=== PATIENT | male | born 1950 ===

== ENCOUNTER 2018-09-24 05:45 | Inpatient (IN) | payer MEDICARE, OTHER ==
[2018-09-24 05:45] VITALS: BMI 33.6
[2018-09-24] MEDS ORDERED: Sodium Chloride 0.9% 1,000 ML IV STA (06:08)
--- NOTE | 2018-09-24 06:22 | ED PDOC ---
HPI:Nausea, Vomiting, Diarrhea Time Seen by Provider: 09/24/18 05:51 Chief Complaint (Nursing): GI Problem Chief Complaint (Provider): Vomiting History Per: Patient History/Exam Limitations: no limitations Onset/Duration Of Symptoms: Hrs (yesterday afternoon) Current Symptoms Are (Timing): Still Present Associated Symptoms: Nausea, Vomiting Additional Complaint(s): 68 year old male, with a past medical history of chronic liver disease secondary to alcohol abuse, s/p TIPS, liver cirrhosis, diabetes, high blood pressure, and high cholesterol, presents to the ED with for 3 episodes of vomiting since yesterday afternoon, nausea and weakness. Patient states he still feels he will vomit again. Denies any abdominal pain or abnormal stools. seems to think this is a reaction to his medication Nexavar which he started 2 weeks ago. Patient states he was supposed to have an appointment with his GI doctor, Dr. Mica Gentile. PMD: Pedro Chappell Jr. Past Medical History Reviewed: Historical Data, Nursing Documentation, Vital Signs Vital Signs: Last Vital Signs Temp 97.5 F L 09/24/18 05:50 Pulse 95 H 09/24/18 05:50 Resp 16 09/24/18 05:50 BP 163/74 H 09/24/18 05:50 Pulse Ox 98 09/24/18 05:50 - Medical History PMH: Diabetes, Gastritis, HTN, Hypercholesterolemia Denies: Chronic Kidney Disease Other PMH: Liver cirrhosis, chronic liver disease - Surgical History Surgical History: No Surg Hx - Family History Family History: States: Unknown Family Hx - Home Medications Home Medications: Ambulatory Orders Medication Instructions Recorded Carvedilol 6.25 mg PO BID 08/28/14 Cholecalciferol [Vitamin D 1000 IU] 50,000 iu PO QWK 08/28/14 Clotrimazole 1% Cream [Lotrimin 1% 1 applic TOP BID 08/28/14 CREAM] Insulin Aspart [Novolog Flexpen] 15 units SC TID 08/28/14 Insulin Detemir [Levemir Flexpen] 30 unit SC HS 08/28/14 Lactulose 10 gm PO TID 08/28/14 Lidocaine 2 patch TP DAILY PRN 08/28/14 Linaclotide [Linzess] 145 mcg PO DAILY 08/28/14 Liraglutide [Victoza] 1.8 mg SC DAILY 08/28/14 Omeprazole 40 mg PO DAILY 08/28/14 Propranolol HCl 10 mg PO TID 08/28/14 Ramipril 10 mg PO DAILY 08/28/14 Rifaximin [Xifaxan] 550 mg PO BID 08/28/14 Spironolactone 25 mg PO DAILY 08/28/14 Insulin Aspar/Insulin N 70/30 30 unit SC ACD #0 cartridge 09/01/14 [Novolog Mix 70/30-U/ml 3Ml] Insulin Aspar/Insulin N 70/30 40 unit SC ACB #0 cartridge 09/01/14 [Novolog Mix 70/30-U/ml 3Ml] Insulin Detemir [Levemir] 40 units SC HS #0 ml 09/01/14 Insulin Human Regular [Novolin R] 5 unit SC AC #0 ml 09/01/14 Lactulose [Enulose] 20 gm PO TID #0 udc 09/01/14 Lisinopril [Zestril] 10 mg PO DAILY #0 tab 09/01/14 Neomycin Sulfate [Neomycin Tab] 500 mg PO BIDMWF #0 tab 09/01/14 Pantoprazole [Protonix EC Tab] 40 mg PO DAILY #0 ect 09/01/14 Ondansetron HCl [Zofran] 4 mg PO Q8 PRN #10 tablet 03/12/18 - Allergies Allergies/Adverse Reactions: Allergies Allergy/AdvReac Type Severity Reaction Status Date / Time No Known Allergies Allergy Unverified 03/11/18 23:31 Review of Systems ROS Statement: Except As Marked, All Systems Reviewed And Found Negative Gastrointestinal: Positive for: Nausea, Vomiting. Negative for: Abdominal Pain, Other (abnormal stools) Physical Exam - Reviewed Nursing Documentation Reviewed: Yes Vital Signs Reviewed: Yes - Physical Exam Appears: Positive for: Non-toxic, No Acute Distress Head Exam: Positive for: ATRAUMATIC, NORMOCEPHALIC Skin: Positive for: Normal Color, Warm, Dry Eye Exam: Positive for: Scleral icterus Neck: Positive for: Normal, Painless ROM Cardiovascular/Chest: Positive for: Regular Rate, Rhythm Respiratory: Positive for: Normal Breath Sounds. Negative for: Wheezing, Respiratory Distress Gastrointestinal/Abdominal: Positive for: Normal Exam, Soft. Negative for: Tenderness, Asicites, Other (fluid wave) Extremity: Positive for: Normal ROM Neurologic/Psych: Positive for: Alert, Oriented. Negative for: Motor/Sensory Deficits - Laboratory Results Result Diagrams: 09/24/18 06:30 - ECG O2 Sat by Pulse Oximetry: 98 (RA) Pulse Ox Interpretation: Normal Medical Decision Making Medical Decision Making: A/P: 68 y/o male with extensive hepatic diseases presenting with nausea, vomiting, and weakness. Unclear at this time whether this is a medication side effect vs worsening hepatic disease vs biliary pathology. Initial Plan: --Type and screen stat --VBG --Ammonium stat --BMP --Lipase stat --Liver profile stat --CBC --PTT --Prothrombin time --Sodium chloride 1000mL IV --Zofran 4mg IV Will obtain labs and give Zofran and fluids. 07:[address] Sal. Scribe Attestation: Documented by Nakul Toney acting as a scribe for Kirby Sloan MD. Provider Scribe Attestation: All medical record entries made by the Scribe were at my direction and personally dictated by me. I have reviewed the chart and agree that the record accurately reflects my personal performance of the history, physical exam, medical decision making, and the department course for this patient. I have also personally directed, reviewed, and agree with the discharge instructions and disposition. Disposition - Clinical Impression Clinical Impression: Vomiting - Patient ED Disposition Is Patient to be Admitted: Transfer of Care - Disposition Disposition: Transfer of Care Disposition Time: 07:00 Condition: STABLE Forms: [facility] ([place]) Patient Signed Over To: Kee Sal Handoff Comments: pending workup and re-eval
[2018-09-24 06:36] LABS: VENOUS BLOOD GAS BASE EXCESS 2.2 mmol/L (0.0-2.0); VENOUS BLOOD GAS PCO2 43 mmHg (40-60); VENOUS BLOOD GAS PO2 38 mm/Hg (30-55); VENOUS BLOOD PH 7.41 (7.32-7.43)
[2018-09-24 06:39] LABS: BASO # 0.1 K/uL (0.0-0.2); BASO % 0.9 % (0.0-2.0); EOS # 0.1 K/uL (0.0-0.7); EOS % 1.4 % (0.0-4.0); HEMOGLOBIN 14.8 g/dL (12.0-18.0); LYMPH # 1.2 K/uL (1.0-4.3); MEAN CELL VOLUME 97.2 fl (80.0-94.0); MEAN CORPUSCULAR HEMOGLOBIN 34.3 pg (27.0-31.0); MEAN CORPUSCULAR HGB CONC 35.3 g/dL (33.0-37.0); MONO # 0.7 K/uL (0.0-0.8); MONO % 10.8 % (0.0-10.0); NEUT # 4.2 K/uL (1.8-7.0); NEUT % 67.9 % (50.0-75.0); RBC 4.3 Mil/uL (4.40-5.90); RED CELL DISTRIBUTION WIDTH 14.7 % (11.5-14.5); WHITE BLOOD COUNT 6.2 K/uL (4.8-10.8)
[2018-09-24 06:47] LABS: INR 1.3; PROTHROMBIN TIME 15.2 Seconds (9.8-13.1)
[2018-09-24 06:49] LABS: PARTIAL THROMBOPLASTIN TIME 32.5 Seconds (25.6-37.1)
[2018-09-24 06:51] LABS: ALB/GLOB RATIO 0.7 (1.0-2.1); ALBUMIN 3.5 g/dL (3.5-5.0); ALT/SGPT 71 U/L (21-72); AST/SGOT 106 U/L (17-59); BILIRUBIN,DIRECT 0.7 mg/ml (0.0-0.4); BLOOD UREA NITROGEN 23 mg/dl (9-20); CALCIUM 8.9 mg/dL (8.4-10.2); GFR NON-AFRICAN AMERICAN > 60; LIPASE 557 U/L (23-300)
--- NOTE | 2018-09-24 09:43 | US ---
Date of service: 09/24/2018 HISTORY: elevated lipase, vomiting COMPARISON: 08/27/2014. TECHNIQUE: Sonographic evaluation of the right upper quadrant of the abdomen. FINDINGS: LIVER: Measures 10.8 cm in length. Normal echogenicity of the liver parenchyma with coarse echotexture. No mass. No intrahepatic bile duct dilatation. A stent remains in place and is patent. GALLBLADDER: Not visualized. COMMON BILE DUCT: Not visualized. PANCREAS: Unremarkable as visualized. No mass. No ductal dilatation. RIGHT KIDNEY: Measures 10.3 cm in length. Normal echogenicity. No calculus, mass, or hydronephrosis. AORTA: No aneurysmal dilatation. IVC: Unremarkable. OTHER FINDINGS: None . IMPRESSION: Small liver. Patent TIPS stent. The gallbladder is not visualized which may be related to nonfasting status.
--- NOTE | 2018-09-24 12:15 | ED PDOC ---
- Laboratory Results Result Diagrams: 09/24/18 06:30 09/24/18 06:30 - ECG O2 Sat by Pulse Oximetry: 97 Disposition - Clinical Impression Clinical Impression: Vomiting, Hepatic encephalopathy - POA Present On Arrival: None - Disposition Disposition: Admitted as In-Patient Disposition Time: 12:14 Condition: FAIR Forms: [facility] (Greek)
[2018-09-24] MEDS ORDERED: Dextrose 5%/0.45% NS 1,000 ML IV SCH (18:15)
[2018-09-24] MEDS ORDERED: GABAPENTIN ENACARBIL 600 MG PO SCH (22:00)
[2018-09-24] MEDS: Insulin Regular 100 units/ml SC SCH (23:00)
[2018-09-25 06:24] LABS: HEMOGLOBIN 13.7 g/dL (12.0-18.0); MEAN CELL VOLUME 97.9 fl (80.0-94.0); MEAN CORPUSCULAR HEMOGLOBIN 34.1 pg (27.0-31.0); MEAN CORPUSCULAR HGB CONC 34.9 g/dL (33.0-37.0); RBC 4.01 Mil/uL (4.40-5.90); RED CELL DISTRIBUTION WIDTH 15.3 % (11.5-14.5)
[2018-09-25 06:31] LABS: BLOOD UREA NITROGEN 21 mg/dl (9-20); GFR NON-AFRICAN AMERICAN > 60
[2018-09-25] MEDS: Insulin Regular 100 units/ml SC SCH ×4 (08:51→22:00)
[2018-09-25] MEDS ORDERED: INSULIN DEGLUDEC 32 UNIT SC SCH (09:00)
--- NOTE | 2018-09-25 09:04 | CP.PCM.HP ---
History of Present Illness - History of Present Illness History of Present Illness: 68 YR OLD MALE ADMITTED WITH HEPATIC ENCEPHALOPATHY,NAUSEA AND VOMITING WITH TREMORS OF EXTREMITIES HX OF CIRRHOSIS OF THE LIVER DUE TO ETOH.NON-COMPLIANT TO RX FEELS BETTER TODAY FOLLOWING RE-INSTITUTION OF RX Present on Admission - Present on Admission Any Indicators Present on Admission: Yes Past Patient History - Infectious Disease Hx of Infectious Diseases: None - Past Medical History & Family History Past Medical History?: Yes - Past Social History Smoking Status: Never Smoked - CARDIAC Hx Cardiac Disorders: Yes Hx Hypercholesterolemia: Yes Hx Hypertension: Yes - PULMONARY Hx Respiratory Disorders: No - NEUROLOGICAL Hx Neurological Disorder: No - HEENT Hx HEENT Problems: No - RENAL Hx Chronic Kidney Disease: No - ENDOCRINE/METABOLIC Hx Endocrine Disorders: Yes Hx Diabetes Mellitus Type 2: Yes - HEMATOLOGICAL/ONCOLOGICAL Hx Blood Disorders: Yes Hx AIDS: No Hx Chemotherapy: Yes (on Nexavar PO) Hx Human Immunodeficiency Virus (HIV): No - INTEGUMENTARY Hx Dermatological Problems: No - MUSCULOSKELETAL/RHEUMATOLOGICAL Hx Musculoskeletal Disorders: No Hx Falls: No - GASTROINTESTINAL Hx Gastrointestinal Disorders: Yes Hx Gastritis: Yes Hx Vomiting: Yes Other/Comment: Chronic liver disease. Hepatic Encepalopathy - GENITOURINARY/GYNECOLOGICAL Hx Genitourinary Disorders: No - PSYCHIATRIC Hx Psychophysiologic Disorder: No Hx Depression: No Hx Substance Use: No - SURGICAL HISTORY Hx Surgeries: Yes Other/Comment: TIPS 10years ago - ANESTHESIA Hx Anesthesia: Yes Hx Anesthesia Reactions: No Meds Allergies/Adverse Reactions: Allergies Allergy/AdvReac Type Severity Reaction Status Date / Time No Known Allergies Allergy Unverified 03/11/18 23:31 Physical Exam - Constitutional Appears: Well, No Acute Distress - Head Exam Head Exam: ATRAUMATIC, NORMAL INSPECTION, NORMOCEPHALIC - Eye Exam Eye Exam: EOMI, Normal appearance, PERRL Pupil Exam: NORMAL ACCOMODATION, PERRL - ENT Exam ENT Exam: Mucous Membranes Moist, Normal Exam - Neck Exam Neck exam: Positive for: Normal Inspection - Respiratory Exam Respiratory Exam: Clear to Auscultation Bilateral, NORMAL BREATHING PATTERN - Cardiovascular Exam Cardiovascular Exam: REGULAR RHYTHM - GI/Abdominal Exam GI & Abdominal Exam: Normal Bowel Sounds, Soft. absent: Tenderness - Rectal Exam Rectal Exam: NORMAL INSPECTION - Extremities Exam Extremities exam: Positive for: normal inspection - Back Exam Back exam: NORMAL INSPECTION - Neurological Exam Neurological exam: Alert, CN II-XII Intact, Normal Gait, Oriented x3, Reflexes Normal - Psychiatric Exam Psychiatric exam: Normal Affect, Normal Mood - Skin Skin Exam: Dry, Intact, Normal Color, Warm Results - Vital Signs Recent Vital Signs: Last Vital Signs Temp 97.9 F 09/24/18 18:01 Pulse 75 09/25/18 08:47 Resp 18 09/24/18 18:09 BP 125/76 09/25/18 08:47 Pulse Ox 98 09/24/18 18:01 - Labs Result Diagrams: 09/25/18 06:05 09/25/18 06:05 Labs: Laboratory Results - last 24 hr 09/24/18 09/24/18 09/24/18 08:20 11:20 17:04 WBC RBC Hgb Hct MCV MCH MCHC RDW Plt Count Sodium Potassium Chloride Carbon Dioxide Anion Gap BUN Creatinine Est GFR ( Amer) Est GFR (Non-Af Amer) POC Glucose (mg/dL) 205 H Random Glucose Calcium Ammonia 158 H* D Blood Type Confirm O POSITIVE 09/24/18 09/24/18 09/25/18 17:50 21:21 05:50 WBC RBC Hgb Hct MCV MCH MCHC RDW Plt Count Sodium Potassium Chloride Carbon Dioxide Anion Gap BUN Creatinine Est GFR ( Amer) Est GFR (Non-Af Amer) POC Glucose (mg/dL) 186 H 136 H 252 H Random Glucose Calcium Ammonia Blood Type Confirm 09/25/18 09/25/18 09/25/18 06:05 06:05 06:05 WBC 6.0 RBC 4.01 L Hgb 13.7 Hct 39.3 MCV 97.9 H MCH 34.1 H MCHC 34.9 RDW 15.3 H Plt Count 75 L Sodium 140 Potassium 4.3 Chloride 110 H Carbon Dioxide 24 Anion Gap 10 BUN 21 H Creatinine 0.9 Est GFR ( Amer) > 60 Est GFR (Non-Af Amer) > 60 POC Glucose (mg/dL) Random Glucose 112 H Calcium 8.0 L Ammonia 147 H* Blood Type Confirm Assessment & Plan - Assessment and Plan (Free Text) Assessment: HEPATIC ENCEPHALOPATHY CIRRHOSIS OF THE LIVER HYPERAMMONEMIA DM HTN Plan: CONTINUE RX ORDERED - Date & Time Date: 09/25/18 Time: 09:06
[2018-09-26] MEDS: Insulin Regular 100 units/ml SC SCH ×4 (09:45→22:09)
--- NOTE | 2018-09-26 10:46 | CP.PCM.PN ---
Subjective - Date & Time of Evaluation Date of Evaluation: 09/26/18 Time of Evaluation: 10:46 - Subjective Subjective: STILL HAVING MILD TREMORS OF EXTREMITIES AND CLAIMS THAT HE IS SLIGHTLY DROWSY Objective - Vital Signs/Intake and Output Vital Signs (last 24 hours): Temp Pulse Resp BP Pulse Ox 97.6 F 81 20 146/72 99 09/26/18 08:48 09/26/18 09:44 09/26/18 08:48 09/26/18 09:44 09/26/18 08:48 - Medications Medications: Current Medications Carvedilol (Coreg) 6.25 mg PO Q12 [facility] Last Admin: 09/26/18 09:44 Dose: 6.25 mg Gabapentin (Neurontin) 600 mg PO [facility] Home Med (Insulin Degludec [Tresiba Flextouch U-200]) 32 unit SC DAILY [facility] Insulin Human Regular (Humulin R) 0 units SC ACCU-CHECK [facility]; Protocol Last Admin: 09/26/18 09:45 Dose: Not Given Lactulose (Enulose) 20 gm PO Q8 [facility] Pantoprazole Sodium (Protonix Inj) 40 mg IVP DAILY [facility] Last Admin: 09/26/18 09:45 Dose: 40 mg Ramipril (Altace) 10 mg PO DAILY [facility] Last Admin: 09/26/18 09:44 Dose: 10 mg Rifaximin (Xifaxan) 550 mg PO Q12 [facility]; Protocol Last Admin: 09/26/18 09:45 Dose: 550 mg Spironolactone (Aldactone) 25 mg PO BID [facility] Last Admin: 09/26/18 09:42 Dose: 25 mg - Labs Labs: 09/25/18 06:05 09/25/18 06:05 PT 15.2 Seconds (9.8-13.1) H 09/24/18 06:30 INR 1.3 09/24/18 06:30 APTT 32.5 Seconds (25.6-37.1) 09/24/18 06:30 - Constitutional Appears: Chronically Ill - Head Exam Head Exam: ATRAUMATIC, NORMAL INSPECTION, NORMOCEPHALIC - Eye Exam Eye Exam: EOMI, Normal appearance, PERRL Pupil Exam: NORMAL ACCOMODATION, PERRL - ENT Exam ENT Exam: Mucous Membranes Moist, Normal Exam - Neck Exam Neck Exam: Full ROM, Normal Inspection. absent: Lymphadenopathy - Respiratory Exam Respiratory Exam: Clear to Ausculation Bilateral, NORMAL BREATHING PATTERN - Cardiovascular Exam Cardiovascular Exam: REGULAR RHYTHM, +S1, +S2. absent: Murmur - GI/Abdominal Exam GI & Abdominal Exam: Soft, Normal Bowel Sounds. absent: Tenderness - Rectal Exam Rectal Exam: NORMAL INSPECTION - Extremities Exam Extremities Exam: Full ROM, Normal Capillary Refill, Normal Inspection. absent: Joint Swelling, Pedal Edema - Back Exam Back Exam: NORMAL INSPECTION - Neurological Exam Neurological Exam: Alert, Awake, CN II-XII Intact, Normal Gait, Oriented x3 Additional comments: SLIGHT TREMORS OF EXTREMITIES - Psychiatric Exam Psychiatric exam: Normal Affect, Normal Mood - Skin Skin Exam: Dry, Intact, Normal Color, Warm Assessment and Plan - Assessment and Plan (Free Text) Assessment: ALCOHOLIC LIVER DZ HEPATIC ENCEPHALOPATHY DM Plan: INCREASE DOSE OF LACTULOSE MONITOR LYTES AND AMMONIA LEVEL CASE DISCUSSED WITH AND PATIENT
[2018-09-27 06:19] LABS: BLOOD UREA NITROGEN 18 mg/dl (9-20); CALCIUM 7.8 mg/dL (8.4-10.2); GFR NON-AFRICAN AMERICAN > 60
[2018-09-27] MEDS: Insulin Regular 100 units/ml SC SCH ×4 (08:57→22:27)
--- NOTE | 2018-09-27 09:23 | CP.PCM.PN ---
Subjective - Date & Time of Evaluation Date of Evaluation: 09/27/18 Time of Evaluation: 09:22 - Subjective Subjective: FEELS MUCH BETTER APPETITE GREAT REQUESTS SWALLOWING EVAL Objective - Vital Signs/Intake and Output Vital Signs (last 24 hours): Temp Pulse Resp BP Pulse Ox 97.7 F 74 18 146/65 99 09/26/18 23:36 09/26/18 23:36 09/26/18 23:36 09/26/18 23:36 09/26/18 23:36 - Medications Medications: Current Medications Carvedilol (Coreg) 6.25 mg PO Q12 [facility] Last Admin: 09/26/18 22:02 Dose: 6.25 mg Gabapentin (Neurontin) 600 mg PO HS [facility] Last Admin: 09/26/18 22:08 Dose: 600 mg Home Med (Insulin Degludec [Tresiba Flextouch U-200]) 32 unit SC DAILY [facility] Insulin Human Regular (Humulin R) 0 units SC ACCU-CHECK [facility]; Protocol Last Admin: 09/27/18 08:57 Dose: Not Given Lactulose (Enulose) 20 gm PO Q8 [facility] Last Admin: 09/27/18 01:11 Dose: 20 gm Pantoprazole Sodium (Protonix Inj) 40 mg IVP DAILY [facility] Last Admin: 09/26/18 09:45 Dose: 40 mg Ramipril (Altace) 10 mg PO DAILY [facility] Last Admin: 09/26/18 09:44 Dose: 10 mg Rifaximin (Xifaxan) 550 mg PO Q12 [facility]; Protocol Last Admin: 09/26/18 22:05 Dose: 550 mg Spironolactone (Aldactone) 25 mg PO BID [facility] Last Admin: 09/26/18 16:58 Dose: 25 mg - Labs Labs: 09/25/18 06:05 09/27/18 05:40 PT 15.2 Seconds (9.8-13.1) H 09/24/18 06:30 INR 1.3 09/24/18 06:30 APTT 32.5 Seconds (25.6-37.1) 09/24/18 06:30 - Constitutional Appears: No Acute Distress - Head Exam Head Exam: ATRAUMATIC, NORMAL INSPECTION, NORMOCEPHALIC - Eye Exam Eye Exam: EOMI, Normal appearance, PERRL Pupil Exam: NORMAL ACCOMODATION, PERRL - ENT Exam ENT Exam: Mucous Membranes Moist, Normal Exam - Neck Exam Neck Exam: Full ROM, Normal Inspection. absent: Lymphadenopathy - Respiratory Exam Respiratory Exam: Clear to Ausculation Bilateral, NORMAL BREATHING PATTERN - Cardiovascular Exam Cardiovascular Exam: REGULAR RHYTHM, +S1, +S2. absent: Murmur - GI/Abdominal Exam GI & Abdominal Exam: Soft, Normal Bowel Sounds. absent: Tenderness - Rectal Exam Rectal Exam: NORMAL INSPECTION - Extremities Exam Extremities Exam: Full ROM, Normal Capillary Refill, Normal Inspection. absent: Joint Swelling, Pedal Edema - Back Exam Back Exam: NORMAL INSPECTION - Neurological Exam Neurological Exam: Alert, Awake, CN II-XII Intact, Normal Gait, Oriented x3 - Psychiatric Exam Psychiatric exam: Normal Affect, Normal Mood - Skin Skin Exam: Dry, Intact, Normal Color, Warm Assessment and Plan - Assessment and Plan (Free Text) Assessment: HEPATIC ENCEPHALOPATHY HYPERAMMONEMIA--IMPROVED Plan: CONTINUE CURRENT RX REPEAT AMMONIA LEVEL IN AM D/C HOME IN AM IF STABLE
[2018-09-27 16:35] VITALS: RESP 20
[2018-09-27 21:01] VITALS: PULSE 69
[2018-09-27 23:48] VITALS: O2SAT 99
[2018-09-28] MEDS: Insulin Regular 100 units/ml SC SCH ×2 (06:27→12:34)
[2018-09-28 08:41] VITALS: BP 118/67
[2018-09-28 08:49] VITALS: TEMP 97.8
--- NOTE | 2018-09-28 13:15 | CP.PCM.DIS ---
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 Priority: Medium (6) HTN (hypertension) Status: Chronic Priority: Medium Hospital Course - Lab Results Lab Results: Most Recent Lab Values WBC 6.0 K/uL (4.8-10.8) 09/25/18 06:05 RBC 4.01 Mil/uL (4.40-5.90) L 09/25/18 06:05 Hgb 13.7 g/dL (12.0-18.0) 09/25/18 06:05 Hct 39.3 % (35.0-51.0) 09/25/18 06:05 MCV 97.9 fl (80.0-94.0) H 09/25/18 06:05 MCH 34.1 pg (27.0-31.0) H 09/25/18 06:05 MCHC 34.9 g/dL (33.0-37.0) 09/25/18 06:05 RDW 15.3 % (11.5-14.5) H 09/25/18 06:05 Plt Count 75 K/uL (130-400) L 09/25/18 06:05 MPV 10.0 fl (7.2-11.7) 09/24/18 06:30 Neut % (Auto) 67.9 % (50.0-75.0) 09/24/18 06:30 Lymph % (Auto) 19.0 % (20.0-40.0) L 09/24/18 06:30 [place] % (Auto) 10.8 % (0.0-10.0) H 09/24/18 06:30 Eos % (Auto) 1.4 % (0.0-4.0) 09/24/18 06:30 Baso % (Auto) 0.9 % (0.0-2.0) 09/24/18 06:30 Neut # (Auto) 4.2 K/uL (1.8-7.0) 09/24/18 06:30 Lymph # (Auto) 1.2 K/uL (1.0-4.3) 09/24/18 06:30 [place] # (Auto) 0.7 K/uL (0.0-0.8) 09/24/18 06:30 Eos # (Auto) 0.1 K/uL (0.0-0.7) 09/24/18 06:30 Baso # (Auto) 0.1 K/uL (0.0-0.2) 09/24/18 06:30 PT 15.2 Seconds (9.8-13.1) H 09/24/18 06:30 INR 1.3 09/24/18 06:30 APTT 32.5 Seconds (25.6-37.1) 09/24/18 06:30 pO2 38 mm/Hg (30-55) 09/24/18 06:09 VBG pH 7.41 (7.32-7.43) 09/24/18 06:09 VBG pCO2 43 mmHg (40-60) 09/24/18 06:09 VBG HCO3 25.9 mmol/L 09/24/18 06:09 VBG Total CO2 28.6 mmol/L (22-28) H 09/24/18 06:09 VBG O2 Sat (Calc) 76.5 % (40-65) H 09/24/18 06:09 VBG Base Excess 2.2 mmol/L (0.0-2.0) H 09/24/18 06:09 VBG Potassium 4.3 mmol/L (3.6-5.2) 09/24/18 06:09 Sodium 138.0 mmol/L (132-148) 09/24/18 06:09 Chloride 106.0 mmol/L (98-107) 09/24/18 06:09 Glucose 141 mg/dL (75-110) H 09/24/18 06:09 Lactate 2.9 mmol/L (0.7-2.1) H 09/24/18 06:09 FiO2 21.0 % 09/24/18 06:09 Sodium 140 mmol/l (132-148) 09/27/18 05:40 Potassium 3.9 MMOL/L (3.6-5.0) 09/27/18 05:40 Chloride 116 mmol/L (98-107) H 09/27/18 05:40 Carbon Dioxide 22 mmol/L (22-30) 09/27/18 05:40 Anion Gap 6 (10-20) L 09/27/18 05:40 BUN 18 mg/dl (9-20) 09/27/18 05:40 Creatinine 0.8 mg/dl (0.8-1.5) 09/27/18 05:40 Est GFR ( Amer) > 60 09/27/18 05:40 Est GFR (Non-Af Amer) > 60 09/27/18 05:40 POC Glucose (mg/dL) 232 mg/dL (65-110) H 09/28/18 10:54 Random Glucose 101 mg/dL (75-110) 09/27/18 05:40 Calcium 7.8 mg/dL (8.4-10.2) L 09/27/18 05:40 Total Bilirubin 2.9 mg/dl (0.2-1.3) H 09/24/18 06:30 Direct Bilirubin 0.7 mg/ml (0.0-0.4) H 09/24/18 06:30 AST 106 U/L (17-59) H D 09/24/18 06:30 ALT 71 U/L (21-72) 09/24/18 06:30 Alkaline Phosphatase 197 U/L (38-126) H 09/24/18 06:30 Ammonia 95 umo/L (16-60) H* 09/28/18 05:30 Total Protein 8.5 G/DL (6.3-8.2) H 09/24/18 06:30 Albumin 3.5 g/dL (3.5-5.0) 09/24/18 06:30 Globulin 5.0 gm/dL (2.2-3.9) H 09/24/18 06:30 Albumin/Globulin Ratio 0.7 (1.0-2.1) L 09/24/18 06:30 Lipase 557 U/L (23-300) H 09/24/18 06:30 Venous Blood Potassium 4.3 mmol/L (3.6-5.2) 09/24/18 06:09 Blood Type O POSITIVE 09/24/18 06:30 Blood Type Confirm O POSITIVE 09/24/18 08:20 Antibody Screen Negative 09/24/18 06:30 BBK History Checked No verified bt 09/24/18 06:30 - Hospital Course Hospital Course: CLINICALLY IMPROVED AMMONIA LEVEL-95 Discharge Exam - Head Exam Head Exam: ATRAUMATIC, NORMAL INSPECTION, NORMOCEPHALIC - Eye Exam Eye Exam: EOMI, Normal appearance, PERRL Pupil Exam: NORMAL ACCOMODATION, PERRL - GI/Abdominal Exam GI & Abdominal Exam: Normal Bowel Sounds - Rectal Exam Rectal Exam: NORMAL INSPECTION - Neurological Exam Neurological exam: Alert, CN II-XII Intact, Normal Gait, Oriented x3, Reflexes Normal - Psychiatric Exam Psychiatric exam: Normal Affect, Normal Mood - Skin Skin Exam: Dry, Intact, Normal Color, Warm Discharge Plan - Follow Up Plan Condition: FAIR Disposition: HOME/ ROUTINE Patient education suggested?: Yes Instructions: Nausea and Vomiting, Adult (DC), Hepatic Encephalopathy (DC) Additional Instructions: hacer morena con hollins primario dentro 1 semana Referrals: Edwar Mancilla MD [Staff Provider] -
== END 2018-09-28 14:30 | disposition home or self-care (01) | DRG 442 ==
LOC: H.ER 05:45 → H.ERHOLD 12:12 → H.MEDSURG1 17:27
PROVIDERS: ADMIT Internal Medicine Pulmonary Disease; ATTEND Internal Medicine Pulmonary Disease
DX: K72.90 Hepatic failure, unspecified without coma (principal); I85.10 Secondary esophageal varices without bleeding; Z79.4 Long term (current) use of insulin; Z91.19 Patient's noncompliance with other medical treatment and regimen; F10.10 Alcohol abuse, uncomplicated; K29.70 Gastritis, unspecified, without bleeding; K76.9 Liver disease, unspecified; Z79.899 Other long term (current) drug therapy; E11.9 Type 2 diabetes mellitus without complications; E78.00 Pure hypercholesterolemia, unspecified; I10 Essential (primary) hypertension; K70.30 Alcoholic cirrhosis of liver without ascites

== ENCOUNTER 2018-12-03 15:16 | Inpatient (IN) | payer MEDICARE ==
[2018-12-03 15:16] VITALS: BMI 33.6
--- NOTE | 2018-12-03 16:05 | ED PDOC ---
HPI: Altered Mental Status Time Seen by Provider: 12/03/18 15:44 Chief Complaint (Nursing): Dizziness/Lightheaded Chief Complaint (Provider): Recurrence Hepatic Enceph History Per: Family History/Exam Limitations: None Onset/Duration Of Symptoms: Days (two to three days with it becoming worse this morning) Onset Of Symptoms: Other Current Symptoms Are (Timing): Still Present Description Of Symptoms: Confused Usual Baseline: Alert Oriented Exacerbating Factor(s): Diabetic, Alcohol Use (pt no longer uses alcohol), Liver Disease Decreased Ability To: Walk, Sit Severity: Moderate Associated Symptoms: Disoriented, Confused, Trouble Concentrating, Trouble Thinking, Weakness Additional Complaint(s): Pt with a history of cirrhosis and recurrent hepatic encep presents confused and unable to determine the day or the month and uncertain of his wearabouts with symptoms that his indicates have worsened over the last few days. denies that the patient has suffered from constipation and has had a bowel movement as recently as this morning and takes his medication daily, which includes lactolose. Past Medical History Reviewed: Historical Data, Nursing Documentation, Vital Signs Vital Signs: Last Vital Signs Temp 97.6 F 12/03/18 15:21 Pulse 87 12/03/18 15:21 Resp 16 12/03/18 15:21 BP 128/77 12/03/18 15:21 Pulse Ox 99 12/03/18 15:21 - Medical History PMH: Diabetes, Gastritis, HTN, Hypercholesterolemia Denies: Depression, HIV, Chronic Kidney Disease - Family History Family History: States: Unknown Family Hx - Home Medications Home Medications: Ambulatory Orders Medication Instructions Recorded Carvedilol [Coreg] 6.25 mg PO Q12 09/24/18 Cilostazol [Pletal] 50 mg PO Q12 09/24/18 Dulaglutide [Trulicity] 1.5 mg SC WE 09/24/18 Empagliflozin [Jardiance] 25 mg PO DAILY 09/24/18 Furosemide [Lasix] 20 mg PO BID 09/24/18 Gabapentin Enacarbil [Horizant] 600 mg PO HS 09/24/18 Insulin Degludec [Tresiba 33 unit SC DAILY 09/24/18 Flextouch U-200] Omeprazole 40 mg PO DAILY 09/24/18 Spironolactone [Aldactone] 25 mg PO BID 09/24/18 rifAXIMin [Xifaxan] 550 mg PO Q12 09/24/18 Lactulose [Generlac] 30 ml PO BID 12/03/18 traMADol [Ultram] 50 mg PO Q12 PRN 12/03/18 - Allergies Allergies/Adverse Reactions: Allergies Allergy/AdvReac Type Severity Reaction Status Date / Time No Known Allergies Allergy Unverified 03/11/18 23:31 Review of Systems Review Of Systems: ROS cannot be obtained secondary to pt's inabilty to answer questions. Neurological: Positive for: Altered Mental Status Physical Exam - Reviewed Nursing Documentation Reviewed: Yes Vital Signs Reviewed: Yes - Physical Exam Appears: Positive for: Uncomfortable Head Exam: Positive for: ATRAUMATIC, NORMAL INSPECTION Skin: Positive for: Warm, Dry. Negative for: Diaphoresis, Pallor, Rash Eye Exam: Positive for: PERRL. Negative for: Nystagmus, Periorbital swelling, Periorbital tenderness Cardiovascular/Chest: Positive for: Regular Rate, Rhythm, Chest Non Tender. Negative for: Bradycardia, Tachycardia Respiratory: Positive for: Normal Breath Sounds. Negative for: Decreased Breath Sounds, Accessory Muscle Use, Crackles, Rales, Rhonchi Pulses-Carotid (L): 2+ Pulses-Carotid (R): 2+ Pulses-Radial (L): 2+ Pulses-Radial (R): 2+ Gastrointestinal/Abdominal: Positive for: Bowel Sounds (active in all four quadrants), Soft, Asicites. Negative for: Tenderness Back: Positive for: Normal Inspection. Negative for: L CVA Tenderness, R CVA Tenderness, Vertebral Tenderness Rectal: Positive for: Normal Exam, Rectal Tone Is: (positive), Stool Is Heme: (negative). Negative for: Blood Streaked Stool, Hemorrhoids, Tenderness - Laboratory Results Result Diagrams: 12/03/18 16:22 12/03/18 16:22 - ECG O2 Sat by Pulse Oximetry: 99 Medical Decision Making Medical Decision Making: I: hepatic enceph P: CBC CMP Ammonia tx with lactolose and monitor Pt ammonia at 269, critically high 1650- called Dr Carey and [facility] service Disposition - Clinical Impression Clinical Impression: Hepatic encephalopathy - Patient ED Disposition Is Patient to be Admitted: Yes Discussed With : Ck Quintanilla Doctor Will See Patient In The: Hospital Counseled Patient/Family Regarding: Diagnosis, Need For Followup - Disposition Disposition Time: 17:07 Condition: FAIR - Pt Status Changed To: Hospital Disposition Of: Inpatient - Admit Certification Admit to Inpatient:: After my assessment, the patient will require hospitalization for at least two midnights. This is because of the severity of symptoms shown, intensity of services needed, and/or the medical risk in this patient being treated as an outpatient.
[2018-12-03 16:38] LABS: BASO % 0.5 % (0.0-2.0); EOS # 0.2 K/uL (0.0-0.7); EOS % 2.4 % (0.0-4.0); HEMOGLOBIN 13.7 g/dL (12.0-18.0); LYMPH # 1.3 K/uL (1.0-4.3); LYMPH % 19.3 % (20.0-40.0); MEAN CELL VOLUME 102.3 fl (80.0-94.0); MEAN CORPUSCULAR HEMOGLOBIN 35.5 pg (27.0-31.0); MEAN CORPUSCULAR HGB CONC 34.8 g/dL (33.0-37.0); MEAN PLATELET VOLUME 9.9 fl (7.2-11.7); MONO # 0.8 K/uL (0.0-0.8); MONO % 11.3 % (0.0-10.0); NEUT # 4.4 K/uL (1.8-7.0); NEUT % 66.5 % (50.0-75.0); NRBC % 0.1 % (0.0-0.0); RBC 3.84 Mil/uL (4.40-5.90); RED CELL DISTRIBUTION WIDTH 15.8 % (11.5-14.5); WHITE BLOOD COUNT 6.6 K/uL (4.8-10.8)
[2018-12-03 16:41] LABS: INR 1.4; PROTHROMBIN TIME 15.4 Seconds (9.8-13.1)
[2018-12-03 16:43] LABS: ALB/GLOB RATIO 0.7 (1.0-2.1); ALBUMIN 3.1 g/dL (3.5-5.0); ALT/SGPT 67 U/L (21-72); AST/SGOT 107 U/L (17-59); BLOOD UREA NITROGEN 22 mg/dl (9-20); CALCIUM 8.7 mg/dL (8.4-10.2); GFR NON-AFRICAN AMERICAN > 60; LIPASE 305 U/L (23-300)
[2018-12-03 16:44] LABS: PARTIAL THROMBOPLASTIN TIME 31.4 Seconds (25.6-37.1)
[2018-12-03] MEDS ORDERED: Sodium Chloride 0.9% 1,000 ML IV ONE (17:35)
[2018-12-03 19:26] LABS: SQUAMOUS EPITHIAL 2 /hpf (0-5); URINE BACTERIA RARE (<OCC); URINE BILIRUBIN NEGATIVE (NEGATIVE); URINE BLOOD NEGATIVE (NEGATIVE); URINE CLARITY SLIGHTY-CLOUDY (Clear); URINE COLOR YELLOW (YELLOW); URINE GLUCOSE (UA) >=500 mg/dL (NEGATIVE); URINE LEUKOCYTE ESTERASE TRACE Leu/uL (Negative); URINE PROTEIN 100 mg/dL (NEGATIVE)
[2018-12-03] MEDS: Sodium Chloride 0.9% 1,000 ML IV SCH (21:54)
[2018-12-03] MEDS: Insulin Lispro (humaLOG) 100 Units/ml Inj SC SCH (23:19)
[2018-12-04 05:54] LABS: MEAN CELL VOLUME 101.9 fl (80.0-94.0); MEAN CORPUSCULAR HEMOGLOBIN 36.1 pg (27.0-31.0); MEAN CORPUSCULAR HGB CONC 35.5 g/dL (33.0-37.0); RBC 3.6 Mil/uL (4.40-5.90); RED CELL DISTRIBUTION WIDTH 15.8 % (11.5-14.5); WHITE BLOOD COUNT 6.4 K/uL (4.8-10.8)
[2018-12-04] MEDS: Sodium Chloride 0.9% 1,000 ML IV SCH ×3 (06:06→16:46)
[2018-12-04 06:10] LABS: ALB/GLOB RATIO 0.7 (1.0-2.1); ALBUMIN 2.8 g/dL (3.5-5.0); ALT/SGPT 71 U/L (21-72); AST/SGOT 94 U/L (17-59); BLOOD UREA NITROGEN 22 mg/dl (9-20); GFR NON-AFRICAN AMERICAN > 60
[2018-12-04] MEDS: Insulin Lispro (humaLOG) 100 Units/ml Inj SC SCH ×4 (08:08→22:26)
[2018-12-04] MEDS: Cilostazol 50 mg Tab UD PO SCH ×2 (08:09→21:22)
--- NOTE | 2018-12-04 09:04 | CARD ---
APPROVED REPORT Date of service: 12/03/2018 EKG Measurement Heart [id number] <Conclusion> Normal sinus rhythm Minimal voltage criteria for LVH, may be normal variant Poor R wave progression in Precordial leads Abnormal ECG
[2018-12-04 10:31] LABS: SQUAMOUS EPITHIAL 1 /hpf (0-5); URINE BILIRUBIN NEGATIVE (NEGATIVE); URINE BLOOD NEGATIVE (NEGATIVE); URINE CLARITY SLIGHTY-CLOUDY (Clear); URINE COLOR AMBER (YELLOW); URINE GLUCOSE (UA) >=500 mg/dL (NEGATIVE); URINE LEUKOCYTE ESTERASE NEG Leu/uL (Negative); URINE PROTEIN 100 mg/dL (NEGATIVE)
[2018-12-04 16:52] LABS: HEPATITIS B SURFACE AG Negative (NEGATIVE)
[2018-12-04 16:59] LABS: HEPATITIS A IGM NEGATIVE (NEGATIVE); HEPATITIS B CORE AB NEGATIVE (NEGATIVE)
[2018-12-04 17:10] LABS: HEPATITIS C ANTIBODY NEGATIVE (NEGATIVE)
--- NOTE | 2018-12-04 20:57 | CP.PCM.CON ---
History of Present Illness - History of Present Illness History of Present Illness: 68 yo male with h/o Etoh Cirrhosis admitted with increasing confusion. Patient has had TIPS in the past. Recently noted to have rising AFP and in October Had liver CT showing stable liver masses. Has seen Dr. Wade as his liver special ist. Review of Systems - Constitutional Constitutional: absent: Chills - EENT Eyes: absent: Blurred Vision Ears: absent: Ear Pain Nose/Mouth/Throat: absent: Epistaxis - Cardiovascular Cardiovascular: absent: Chest Pain - Respiratory Respiratory: absent: Dyspnea - Gastrointestinal Gastrointestinal: absent: Abdominal Pain - Genitourinary Genitourinary: Change in Urinary Stream Past Patient History - Infectious Disease Hx of Infectious Diseases: None - Past Medical History & Family History Past Medical History?: Yes - Past Social History Smoking Status: Never Smoked - CARDIAC Hx Cardiac Disorders: Yes Hx Hypercholesterolemia: Yes Hx Hypertension: Yes - PULMONARY Hx Respiratory Disorders: No - NEUROLOGICAL Hx Neurological Disorder: No - HEENT Hx HEENT Problems: No - RENAL Hx Chronic Kidney Disease: Yes - ENDOCRINE/METABOLIC Hx Endocrine Disorders: Yes Hx Diabetes Mellitus Type 2: Yes - HEMATOLOGICAL/ONCOLOGICAL Hx Blood Disorders: No Hx Human Immunodeficiency Virus (HIV): No - INTEGUMENTARY Hx Dermatological Problems: No - MUSCULOSKELETAL/RHEUMATOLOGICAL Hx Musculoskeletal Disorders: No Hx Falls: No - GASTROINTESTINAL Hx Gastrointestinal Disorders: Yes Hx Gastritis: Yes - GENITOURINARY/GYNECOLOGICAL Hx Genitourinary Disorders: No - PSYCHIATRIC Hx Psychophysiologic Disorder: No Hx Substance Use: No - SURGICAL HISTORY Hx Surgeries: Yes Other/Comment: TIPS 10years ago - ANESTHESIA Hx Anesthesia: Yes Hx Anesthesia Reactions: No Meds Allergies/Adverse Reactions: Allergies Allergy/AdvReac Type Severity Reaction Status Date / Time No Known Allergies Allergy Unverified 03/11/18 23:31 - Medications Medications: Current Medications Carvedilol (Coreg) 6.25 mg PO Q12 [facility] Last Admin: 12/04/18 08:09 Dose: 6.25 mg Cilostazol (Pletal) 50 mg PO Q12 [facility] Last Admin: 12/04/18 08:09 Dose: 50 mg Furosemide (Lasix) 20 mg PO BID [facility] Last Admin: 12/04/18 16:47 Dose: 20 mg Gabapentin (Neurontin) 600 mg PO HS [facility] Last Admin: 12/03/18 22:00 Dose: 600 mg Sodium Chloride (Sodium Chloride 0.9%) 1,000 mls @ 100 mls/hr IV .Q10H [facility] Stop: 12/04/18 21:04 Last Admin: 12/04/18 16:46 Dose: 100 mls/hr Insulin Human Lispro (Humalog) 0 units SC ACCU-CHECK [facility]; Protocol Last Admin: 12/04/18 16:47 Dose: 2 units Lactulose (Enulose) 20 gm PO TID [facility] Last Admin: 12/04/18 16:46 Dose: 20 gm Rifaximin (Xifaxan) 550 mg PO Q12 [facility]; Protocol Last Admin: 12/04/18 08:10 Dose: 550 mg Spironolactone (Aldactone) 25 mg PO BID [facility] Last Admin: 12/04/18 16:46 Dose: 25 mg Physical Exam - Constitutional Appears: No Acute Distress - Eye Exam Eye Exam: Scleral icterus Pupil Exam: PERRL - ENT Exam ENT Exam: Mucous Membranes Moist - Neck Exam Neck exam: Positive for: Normal Inspection - Respiratory Exam Respiratory Exam: Clear to Auscultation Bilateral - Cardiovascular Exam Cardiovascular Exam: REGULAR RHYTHM, +S1, +S2 - GI/Abdominal Exam GI & Abdominal Exam: Distended, Normal Bowel Sounds - Rectal Exam Rectal Exam: Deferred Results - Vital Signs Recent Vital Signs: Last Vital Signs Temp 97.7 F 12/04/18 16:10 Pulse 78 12/04/18 16:10 Resp 20 12/04/18 16:10 BP 142/75 12/04/18 16:47 Pulse Ox 98 12/04/18 16:10 - Labs Result Diagrams: 12/04/18 04:31 12/04/18 04:31 Labs: Laboratory Results - last 24 hr 12/03/18 12/04/18 12/04/18 22:00 04:31 04:31 WBC 6.4 RBC 3.60 L Hgb 13.0 Hct 36.7 MCV 101.9 H MCH 36.1 H MCHC 35.5 RDW 15.8 H Plt Count 82 L Sodium Potassium Chloride Carbon Dioxide Anion Gap BUN Creatinine Est GFR ( Amer) Est GFR (Non-Af Amer) POC Glucose (mg/dL) 94 Random Glucose Calcium Total Bilirubin AST ALT Alkaline Phosphatase Ammonia 123 H* D Total Protein Albumin Globulin Albumin/Globulin Ratio Alpha Fetoprotein Carcinoembryonic Ag Prostate Specific Ag Urine Color Urine Clarity Urine pH Ur Specific [place] Urine Protein Urine Glucose (UA) Urine Ketones Urine Blood Urine Nitrate Urine Bilirubin Urine Urobilinogen Ur Leukocyte Esterase Urine RBC (Auto) Urine Microscopic WBC Ur Squamous Epith Cells Hepatitis A IgM Ab Hep Bs Antigen Hep B Core IgM Ab Hepatitis C Antibody 12/04/18 12/04/18 12/04/18 04:31 06:01 06:40 WBC RBC Hgb Hct MCV MCH MCHC RDW Plt Count Sodium 143 Potassium 3.8 Chloride 110 H Carbon Dioxide 24 Anion Gap 13 BUN 22 H Creatinine 0.8 Est GFR ( Amer) > 60 Est GFR (Non-Af Amer) > 60 POC Glucose (mg/dL) 71 91 Random Glucose 74 L Calcium 8.0 L Total Bilirubin 3.8 H AST 94 H ALT 71 Alkaline Phosphatase 152 H D Ammonia Total Protein 6.9 Albumin 2.8 L Globulin 4.2 H Albumin/Globulin Ratio 0.7 L Alpha Fetoprotein Carcinoembryonic Ag Prostate Specific Ag 0.117 Urine Color Urine Clarity Urine pH Ur Specific [place] Urine Protein Urine Glucose (UA) Urine Ketones Urine Blood Urine Nitrate Urine Bilirubin Urine Urobilinogen Ur Leukocyte Esterase Urine RBC (Auto) Urine Microscopic WBC Ur Squamous Epith Cells Hepatitis A IgM Ab Hep Bs Antigen Hep B Core IgM Ab Hepatitis C Antibody 12/04/18 12/04/18 12/04/18 09:58 10:52 10:52 WBC RBC Hgb Hct MCV MCH MCHC RDW Plt Count Sodium Potassium Chloride Carbon Dioxide Anion Gap BUN Creatinine Est GFR ( Amer) Est GFR (Non-Af Amer) POC Glucose (mg/dL) Random Glucose Calcium Total Bilirubin AST ALT Alkaline Phosphatase Ammonia Total Protein Albumin Globulin Albumin/Globulin Ratio Alpha Fetoprotein 135.0 H Carcinoembryonic Ag 4.0 H Prostate Specific Ag Urine Color [place] Urine Clarity Slighty-cloudy Urine pH 6.0 Ur Specific [place] 1.030 Urine Protein 100 Urine Glucose (UA) >=500 Urine Ketones Trace Urine Blood Negative Urine Nitrate Negative Urine Bilirubin Negative Urine Urobilinogen 4.0 Ur Leukocyte Esterase Neg Urine RBC (Auto) 12 H Urine Microscopic WBC 4 Ur Squamous Epith Cells 1 Hepatitis A IgM Ab Hep Bs Antigen Hep B Core IgM Ab Hepatitis C Antibody 12/04/18 12/04/18 12/04/18 10:52 11:19 16:19 WBC RBC Hgb Hct MCV MCH MCHC RDW Plt Count Sodium Potassium Chloride Carbon Dioxide Anion Gap BUN Creatinine Est GFR ( Amer) Est GFR (Non-Af Amer) POC Glucose (mg/dL) 179 H 216 H Random Glucose Calcium Total Bilirubin AST ALT Alkaline Phosphatase Ammonia Total Protein Albumin Globulin Albumin/Globulin Ratio Alpha Fetoprotein Carcinoembryonic Ag Prostate Specific Ag Urine Color Urine Clarity Urine pH Ur Specific [place] Urine Protein Urine Glucose (UA) Urine Ketones Urine Blood Urine Nitrate Urine Bilirubin Urine Urobilinogen Ur Leukocyte Esterase Urine RBC (Auto) Urine Microscopic WBC Ur Squamous Epith Cells Hepatitis A IgM Ab Negative Hep Bs Antigen Negative Hep B Core IgM Ab Negative Hepatitis C Antibody Negative Assessment & Plan (1) Hepatic encephalopathy Assessment and Plan: Patient more alert and ammonia level improving with lactulose and rifaximin. AFP stable though elevated over past few months. 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 Status: Acute
[2018-12-05 06:48] LABS: HEMOGLOBIN 11.9 g/dL (12.0-18.0); MEAN CELL VOLUME 104.3 fl (80.0-94.0); MEAN CORPUSCULAR HEMOGLOBIN 36.4 pg (27.0-31.0); MEAN CORPUSCULAR HGB CONC 34.9 g/dL (33.0-37.0); RBC 3.26 Mil/uL (4.40-5.90); RED CELL DISTRIBUTION WIDTH 15.8 % (11.5-14.5); WHITE BLOOD COUNT 5.9 K/uL (4.8-10.8)
[2018-12-05 07:11] LABS: BLOOD UREA NITROGEN 21 mg/dl (9-20); CALCIUM 7.5 mg/dL (8.4-10.2); GFR NON-AFRICAN AMERICAN > 60
[2018-12-05] MEDS: Cilostazol 50 mg Tab UD PO SCH ×2 (08:02→21:03)
[2018-12-05] MEDS: Insulin Lispro (humaLOG) 100 Units/ml Inj SC SCH ×3 (08:04→16:33)
--- NOTE | 2018-12-05 08:37 | CP.PCM.HP ---
History of Present Illness - History of Present Illness History of Present Illness: This is a 68 y/o male with hx of alcoholic liver disease was admitted from last night after he was noted by his to have increasing disorientation and confusion. He was admitted previously for hepatic encephalopathy and has been on lactulose and Xifaxan. At the Er he was noted to have elevated NH3 levels at 269 Medical Hx alcoholic liver cirrhosis HTN DM 2 Obesity Current medications trulicity jardiance Xifaxan lactulose carvedilol furosemide aldactone Present on Admission - Present on Admission Any Indicators Present on Admission: No History of DVT/PE: No History of Uncontrolled Diabetes: Yes Urinary Catheter: No Decubitus Ulcer Present: No Past Patient History - Infectious Disease Hx of Infectious Diseases: None - Past Medical History & Family History Past Medical History?: Yes - Past Social History Smoking Status: Never Smoked - CARDIAC Hx Cardiac Disorders: Yes Hx Hypercholesterolemia: Yes Hx Hypertension: Yes - PULMONARY Hx Respiratory Disorders: No - NEUROLOGICAL Hx Neurological Disorder: No - HEENT Hx HEENT Problems: No - RENAL Hx Chronic Kidney Disease: Yes - ENDOCRINE/METABOLIC Hx Endocrine Disorders: Yes Hx Diabetes Mellitus Type 2: Yes - HEMATOLOGICAL/ONCOLOGICAL Hx Blood Disorders: No Hx Human Immunodeficiency Virus (HIV): No - INTEGUMENTARY Hx Dermatological Problems: No - MUSCULOSKELETAL/RHEUMATOLOGICAL Hx Musculoskeletal Disorders: No Hx Falls: No - GASTROINTESTINAL Hx Gastrointestinal Disorders: Yes Hx Gastritis: Yes - GENITOURINARY/GYNECOLOGICAL Hx Genitourinary Disorders: No - PSYCHIATRIC Hx Psychophysiologic Disorder: No Hx Substance Use: No - SURGICAL HISTORY Hx Surgeries: Yes Other/Comment: TIPS 10years ago - ANESTHESIA Hx Anesthesia: Yes Hx Anesthesia Reactions: No Meds Allergies/Adverse Reactions: Allergies Allergy/AdvReac Type Severity Reaction Status Date / Time No Known Allergies Allergy Unverified 03/11/18 23:31 Physical Exam - Head Exam Head Exam: NORMAL INSPECTION - Eye Exam Eye Exam: Normal appearance - Respiratory Exam Respiratory Exam: Clear to Auscultation Bilateral - Cardiovascular Exam Cardiovascular Exam: REGULAR RHYTHM - Neurological Exam Neurological exam: Alert, Oriented x3 - Psychiatric Exam Psychiatric exam: Normal Mood Results - Vital Signs Recent Vital Signs: Last Vital Signs Temp 97.4 F L 12/05/18 08:25 Pulse 75 12/05/18 08:25 Resp 20 12/05/18 08:25 BP 131/74 02/20/19 08:25 Pulse Ox 97 12/05/18 08:25 - Labs Result Diagrams: 12/05/18 06:25 12/05/18 06:25 Labs: Laboratory Results - last 24 hr 12/04/18 12/04/18 12/04/18 09:58 10:52 10:52 WBC RBC Hgb Hct MCV MCH MCHC RDW Plt Count Sodium Potassium Chloride Carbon Dioxide Anion Gap BUN Creatinine Est GFR ( Amer) Est GFR (Non-Af Amer) POC Glucose (mg/dL) Random Glucose Calcium Ammonia Alpha Fetoprotein 135.0 H Carcinoembryonic Ag 4.0 H Urine Color [place] Urine Clarity Slighty-cloudy Urine pH 6.0 Ur Specific [place] 1.030 Urine Protein 100 Urine Glucose (UA) >=500 Urine Ketones Trace Urine Blood Negative Urine Nitrate Negative Urine Bilirubin Negative Urine Urobilinogen 4.0 Ur Leukocyte Esterase Neg Urine RBC (Auto) 12 H Urine Microscopic WBC 4 Ur Squamous Epith Cells 1 Hepatitis A IgM Ab Hep Bs Antigen Hep B Core IgM Ab Hepatitis C Antibody 12/04/18 12/04/18 12/04/18 10:52 11:19 16:19 WBC RBC Hgb Hct MCV MCH MCHC RDW Plt Count Sodium Potassium Chloride Carbon Dioxide Anion Gap BUN Creatinine Est GFR ( Amer) Est GFR (Non-Af Amer) POC Glucose (mg/dL) 179 H 216 H Random Glucose Calcium Ammonia Alpha Fetoprotein Carcinoembryonic Ag Urine Color Urine Clarity Urine pH Ur Specific [place] Urine Protein Urine Glucose (UA) Urine Ketones Urine Blood Urine Nitrate Urine Bilirubin Urine Urobilinogen Ur Leukocyte Esterase Urine RBC (Auto) Urine Microscopic WBC Ur Squamous Epith Cells Hepatitis A IgM Ab Negative Hep Bs Antigen Negative Hep B Core IgM Ab Negative Hepatitis C Antibody Negative 12/04/18 12/05/18 12/05/18 22:13 05:32 06:25 WBC 5.9 RBC 3.26 L Hgb 11.9 L Hct 34.0 L MCV 104.3 H D MCH 36.4 H MCHC 34.9 RDW 15.8 H Plt Count 62 L D Sodium Potassium Chloride Carbon Dioxide Anion Gap BUN Creatinine Est GFR ( Amer) Est GFR (Non-Af Amer) POC Glucose (mg/dL) 135 H 74 Random Glucose Calcium Ammonia Alpha Fetoprotein Carcinoembryonic Ag Urine Color Urine Clarity Urine pH Ur Specific [place] Urine Protein Urine Glucose (UA) Urine Ketones Urine Blood Urine Nitrate Urine Bilirubin Urine Urobilinogen Ur Leukocyte Esterase Urine RBC (Auto) Urine Microscopic WBC Ur Squamous Epith Cells Hepatitis A IgM Ab Hep Bs Antigen Hep B Core IgM Ab Hepatitis C Antibody 12/05/18 12/05/18 06:25 06:25 WBC RBC Hgb Hct MCV MCH MCHC RDW Plt Count Sodium 137 Potassium 3.8 Chloride 106 Carbon Dioxide 24 Anion Gap 11 BUN 21 H Creatinine 1.0 Est GFR ( Amer) > 60 Est GFR (Non-Af Amer) > 60 POC Glucose (mg/dL) Random Glucose 118 H Calcium 7.5 L Ammonia 119 H* Alpha Fetoprotein Carcinoembryonic Ag Urine Color Urine Clarity Urine pH Ur Specific [place] Urine Protein Urine Glucose (UA) Urine Ketones Urine Blood Urine Nitrate Urine Bilirubin Urine Urobilinogen Ur Leukocyte Esterase Urine RBC (Auto) Urine Microscopic WBC Ur Squamous Epith Cells Hepatitis A IgM Ab Hep Bs Antigen Hep B Core IgM Ab Hepatitis C Antibody Assessment & Plan (1) Hepatic encephalopathy Status: Acute (2) DM type 2 (diabetes mellitus, type 2) Status: Acute (3) Cirrhosis of liver Status: Acute - Assessment and Plan (Free Text) Plan: Cont lactilose cont all po meds recheck NH3 levels advised to have lactulose qid at home' DC plans in am
[2018-12-05] MEDS: Sodium Chloride 0.9% 1,000 ML IV SCH (12:01)
--- NOTE | 2018-12-05 15:54 | CP.PCM.PN ---
Subjective - Date & Time of Evaluation Date of Evaluation: 12/05/18 Time of Evaluation: 15:51 - Subjective Subjective: Patient feeling stronger. Feels less shaky Objective - Vital Signs/Intake and Output Vital Signs (last 24 hours): Temp Pulse Resp BP Pulse Ox 97.4 F L 75 20 131/74 97 12/05/18 08:25 12/05/18 08:25 12/05/18 08:25 12/05/18 08:25 12/05/18 08:25 - Medications Medications: Current Medications Carvedilol (Coreg) 6.25 mg PO Q12 [facility] Last Admin: 12/05/18 08:03 Dose: 6.25 mg Cilostazol (Pletal) 50 mg PO Q12 [facility] Last Admin: 12/05/18 08:02 Dose: 50 mg Furosemide (Lasix) 20 mg PO BID [facility] Last Admin: 12/05/18 08:03 Dose: 20 mg Gabapentin (Neurontin) 600 mg PO HS [facility] Last Admin: 12/04/18 21:22 Dose: 600 mg Sodium Chloride (Sodium Chloride 0.9%) 1,000 mls @ 80 mls/hr IV .[id number] [facility] Stop: 12/06/18 11:49 Last Admin: 12/05/18 12:01 Dose: 80 mls/hr Insulin Human Lispro (Humalog) 0 units SC ACCU-CHECK [facility]; Protocol Last Admin: 12/05/18 12:00 Dose: 1 units Lactulose (Enulose) 20 gm PO TID [facility] Last Admin: 12/05/18 12:00 Dose: 20 gm Rifaximin (Xifaxan) 550 mg PO Q12 [facility]; Protocol Last Admin: 12/05/18 08:04 Dose: 550 mg Spironolactone (Aldactone) 25 mg PO BID [facility] Last Admin: 12/05/18 08:03 Dose: 25 mg - Labs Labs: 12/05/18 06:25 12/05/18 06:25 PT 15.4 Seconds (9.8-13.1) H 12/03/18 16:22 INR 1.4 12/03/18 16:22 APTT 31.4 Seconds (25.6-37.1) 12/03/18 16:22 - Head Exam Head Exam: ATRAUMATIC - Eye Exam Eye Exam: Normal appearance Pupil Exam: PERRL - ENT Exam ENT Exam: Mucous Membranes Moist - Neck Exam Neck Exam: Full ROM - Respiratory Exam Respiratory Exam: Clear to Ausculation Bilateral - Cardiovascular Exam Cardiovascular Exam: REGULAR RHYTHM, +S1, +S2 - GI/Abdominal Exam GI & Abdominal Exam: Firm, Soft, Normal Bowel Sounds Assessment and Plan (1) Hepatic encephalopathy Assessment & Plan: Clinically much better.Continue rifaximin and lactulose. Status: Acute
[2018-12-05 16:15] VITALS: O2SAT 96
--- NOTE | 2018-12-05 23:24 | CP.PCM.PN ---
Subjective - Date & Time of Evaluation Date of Evaluation: 12/05/18 Time of Evaluation: 11:30 - Subjective Subjective: Pt seen and assessed at bedside. No new complaints, reports feeling well other than having frequent bowel movements. Currently on Xifaxan and lactulose for hepatic encephalopathy. GI consult on board. Review of Systems - Review of Systems All systems: reviewed and no additional remarkable complaints except Review of Systems: frequent bowel movements Objective - Vital Signs/Intake and Output Vital Signs (last 24 hours): Temp Pulse Resp BP Pulse Ox 97.4 F L 88 18 159/78 H 96 12/05/18 16:14 12/05/18 21:03 12/05/18 16:14 12/05/18 21:03 12/05/18 16:14 - Medications Medications: Current Medications Carvedilol (Coreg) 6.25 mg PO Q12 [facility] Last Admin: 12/05/18 21:03 Dose: 6.25 mg Cilostazol (Pletal) 50 mg PO Q12 [facility] Last Admin: 12/05/18 21:03 Dose: 50 mg Furosemide (Lasix) 20 mg PO BID [facility] Last Admin: 12/05/18 16:32 Dose: 20 mg Gabapentin (Neurontin) 600 mg PO HS [facility] Last Admin: 12/05/18 21:03 Dose: 600 mg Sodium Chloride (Sodium Chloride 0.9%) 1,000 mls @ 80 mls/hr IV .[id number] [facility] Stop: 12/06/18 11:49 Last Admin: 12/05/18 12:01 Dose: 80 mls/hr Insulin Human Lispro (Humalog) 0 units SC ACCU-CHECK [facility]; Protocol Last Admin: 12/05/18 16:33 Dose: Not Given Lactulose (Enulose) 20 gm PO TID [facility] Last Admin: 12/05/18 16:32 Dose: 20 gm Rifaximin (Xifaxan) 550 mg PO Q12 [facility]; Protocol Last Admin: 12/05/18 21:03 Dose: 550 mg Spironolactone (Aldactone) 25 mg PO BID [facility] Last Admin: 12/05/18 16:32 Dose: 25 mg - Labs Labs: 12/05/18 06:25 12/05/18 06:25 PT 15.4 Seconds (9.8-13.1) H 12/03/18 16:22 INR 1.4 12/03/18 16:22 APTT 31.4 Seconds (25.6-37.1) 12/03/18 16:22 - Constitutional Appears: Well - Head Exam Head Exam: NORMAL INSPECTION, NORMOCEPHALIC - Eye Exam Eye Exam: EOMI, Normal appearance, PERRL Pupil Exam: PERRL - ENT Exam ENT Exam: Mucous Membranes Moist - Neck Exam Neck Exam: Full ROM, Normal Inspection - Respiratory Exam Respiratory Exam: Clear to Ausculation Bilateral - Cardiovascular Exam Cardiovascular Exam: REGULAR RHYTHM, +S1, +S2 - GI/Abdominal Exam GI & Abdominal Exam: Soft, Normal Bowel Sounds - Extremities Exam Extremities Exam: Full ROM, Normal Capillary Refill, Normal Inspection - Back Exam Back Exam: NORMAL INSPECTION - Neurological Exam Neurological Exam: Alert, Awake, Oriented x3 - Psychiatric Exam Psychiatric exam: Normal Affect, Normal Mood - Skin Skin Exam: Dry, Normal Color, Warm Assessment and Plan (1) Hepatic encephalopathy Assessment & Plan: Assessment/Impression/Major Problems Now: 1.) Hepatic Encephalopathy -AM ammonia level is down to 119. -GI consult appreciated. -Continue Xifaxan and lactulose. -Pt is medically cleared for discharge at this time. -Pt and would like to stay longer; instructed that pt is medically stable, can take lactulose + Xifaxan at home, and can follow up with PMD. Status: Acute
[2018-12-05 23:36] VITALS: RESP 20
[2018-12-06] MEDS: Sodium Chloride 0.9% 1,000 ML IV SCH (00:30)
[2018-12-06] MEDS: Insulin Lispro (humaLOG) 100 Units/ml Inj SC SCH ×3 (02:36→12:25)
[2018-12-06 08:14] VITALS: BP 119/68; PULSE 80; TEMP 98.5
[2018-12-06] MEDS: Cilostazol 50 mg Tab UD PO SCH (09:22)
--- NOTE | 2018-12-06 21:48 | CP.PCM.PN ---
Subjective - Date & Time of Evaluation Date of Evaluation: 12/06/18 Time of Evaluation: 09:00 - Subjective Subjective: Paient without complaint. Appears steady and awake. Objective - Vital Signs/Intake and Output Vital Signs (last 24 hours): Temp Pulse Resp BP Pulse Ox 98.5 F 80 20 119/68 96 12/06/18 08:13 12/06/18 09:22 12/06/18 08:13 12/06/18 09:22 12/06/18 08:13 - Labs Labs: 12/05/18 06:25 12/05/18 06:25 PT 15.4 Seconds (9.8-13.1) H 12/03/18 16:22 INR 1.4 12/03/18 16:22 APTT 31.4 Seconds (25.6-37.1) 12/03/18 16:22 - Head Exam Head Exam: ATRAUMATIC - Eye Exam Eye Exam: Normal appearance - ENT Exam ENT Exam: Normal Exam - Neck Exam Neck Exam: Full ROM - Respiratory Exam Respiratory Exam: Clear to Ausculation Bilateral - Cardiovascular Exam Cardiovascular Exam: REGULAR RHYTHM - GI/Abdominal Exam GI & Abdominal Exam: Soft, Normal Bowel Sounds. absent: Tenderness Assessment and Plan (1) Hepatic encephalopathy Assessment & Plan: Gradually improving. Continue rifaximin and lactuloose. 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 Status: Acute
== END 2018-12-06 14:15 | disposition home or self-care (01) | DRG 443 ==
LOC: H.ER 15:16 → H.ERHOLD 16:56 → H.MEDSURG1 20:20
PROVIDERS: ADMIT Family Medicine; ATTEND Family Medicine
DX: K72.90 Hepatic failure, unspecified without coma (principal); K70.30 Alcoholic cirrhosis of liver without ascites; E66.9 Obesity, unspecified; Z68.32 Body mass index [BMI] 32.0-32.9, adult; E11.22 Type 2 diabetes mellitus with diabetic chronic kidney disease; E78.00 Pure hypercholesterolemia, unspecified; I12.9 Hypertensive chronic kidney disease with stage 1 through stage 4 chronic kidney disease, or unspecified chronic kidney disease; N18.9 Chronic kidney disease, unspecified; Z79.4 Long term (current) use of insulin; K29.70 Gastritis, unspecified, without bleeding

== ENCOUNTER 2019-01-05 23:19 | Inpatient (IN) | payer MEDICARE ==
[2019-01-05 23:19] VITALS: BMI 33.6
[2019-01-06] LABS: BASO # 0.1 K/uL (0.0-0.2); BASO % 0.9 % (0.0-2.0); EOS # 0.2 K/uL (0.0-0.7); EOS % 2.8 % (0.0-4.0); LYMPH # 1.6 K/uL (1.0-4.3); LYMPH % 24.7 % (20.0-40.0); MEAN CELL VOLUME 106.2 fl (80.0-94.0); MEAN CORPUSCULAR HEMOGLOBIN 37.4 pg (27.0-31.0); MEAN CORPUSCULAR HGB CONC 35.2 g/dL (33.0-37.0); MEAN PLATELET VOLUME 10.2 fl (7.2-11.7); MONO # 0.9 K/uL (0.0-0.8); MONO % 14.9 % (0.0-10.0); NEUT # 3.6 K/uL (1.8-7.0); NEUT % 56.7 % (50.0-75.0); NRBC % 0.1 % (0.0-0.0); RBC 4.01 Mil/uL (4.40-5.90); RED CELL DISTRIBUTION WIDTH 16.3 % (11.5-14.5); WHITE BLOOD COUNT 6.3 K/uL (4.8-10.8)
[2019-01-06 00:06] LABS: INR 1.4; PROTHROMBIN TIME 15.7 Seconds (9.8-13.1)
[2019-01-06 00:09] LABS: PARTIAL THROMBOPLASTIN TIME 32.6 Seconds (25.6-37.1)
--- NOTE | 2019-01-06 00:11 | ED PDOC ---
HPI: Altered Mental Status Time Seen by Provider: 01/05/19 23:25 Chief Complaint (Nursing): Abdominal Pain Chief Complaint (Provider): Altered Mental Status History Per: Patient, Family History/Exam Limitations: Clinical Condition Onset/Duration Of Symptoms: Days (x1) Current Symptoms Are (Timing): Still Present Description Of Symptoms: Confused Additional Complaint(s): 68 y/o male with a PMHx of Liver Cirrhosis, Hepatic encephalopathy and DM brought in via [facility] accompanied by family for evaluation of confusion and weakness for the past day. Family report patient was admitted two months ago for hepatic encephalopathy and since going home patient has been somewhat more confused over the past couple weeks. Family additionally notes patient has developed tremors. Family states patient appeared more confused yesterday thus prompting today's visit. At this time, patient denies any pain. PMD: Jessica Wade or Pedro Altamirano Past Medical History Reviewed: Historical Data, Nursing Documentation, Vital Signs Vital Signs: Last Vital Signs Temp 97.7 F 01/05/19 23:20 Pulse 68 01/05/19 23:20 Resp 16 01/05/19 23:20 BP 170/89 H 01/05/19 23:20 Pulse Ox 99 01/05/19 23:20 - Medical History PMH: Diabetes, Gastritis, HTN, Hypercholesterolemia, Chronic Kidney Disease Denies: Depression, HIV Other PMH: Liver CA/Cirrhosis and Hepatic encephalopathy - Surgical History Surgical History: No Surg Hx - Family History Family History: States: Unknown Family Hx - Social History Alcohol: Other (former alcoholic) - Immunization History Hx Tetanus Toxoid Vaccination: No Hx Influenza Vaccination: No Hx Pneumococcal Vaccination: No - Home Medications Home Medications: Ambulatory Orders Medication Instructions Recorded Carvedilol [Coreg] 6.25 mg PO Q12 09/24/18 Cilostazol [Pletal] 50 mg PO Q12 09/24/18 Dulaglutide [Trulicity] 1.5 mg SC WE 09/24/18 Gabapentin Enacarbil [Horizant] 600 mg PO HS 09/24/18 Insulin Degludec [Tresiba 33 unit SC DAILY 09/24/18 Flextouch U-200] Omeprazole 40 mg PO DAILY 09/24/18 rifAXIMin [Xifaxan] 550 mg PO Q12 09/24/18 traMADol [Ultram] 50 mg PO Q12 PRN 12/03/18 Furosemide [Lasix] 40 mg PO DAILY #30 tab 12/06/18 - Allergies Allergies/Adverse Reactions: Allergies Allergy/AdvReac Type Severity Reaction Status Date / Time No Known Allergies Allergy Verified 01/05/19 23:20 Review of Systems ROS Statement: Except As Marked, All Systems Reviewed And Found Negative Constitutional: Positive for: Weakness Neurological: Positive for: Confusion, Other (tremors) Physical Exam - Reviewed Nursing Documentation Reviewed: Yes Vital Signs Reviewed: Yes - Physical Exam Appears: Positive for: No Acute Distress Head Exam: Positive for: ATRAUMATIC, NORMOCEPHALIC Skin: Positive for: Normal Color, Warm, Dry Eye Exam: Positive for: Normal appearance, EOMI, PERRL Neck: Positive for: Normal, Painless ROM Cardiovascular/Chest: Positive for: Regular Rate, Rhythm. Negative for: Murmur Respiratory: Positive for: Normal Breath Sounds. Negative for: Respiratory Distress Gastrointestinal/Abdominal: Positive for: Distended (mildly distended). Negative for: Tenderness Extremity: Positive for: Normal ROM Neurological/Psych: Positive for: Awake, Alert, Oriented (to person), Other (asterixis noted) - Laboratory Results Result Diagrams: 01/06/19 06:30 01/06/19 06:30 Lab Results: PT 15.7 Seconds (9.8-13.1) H 01/05/19 23:56 INR 1.4 01/05/19 23:56 - ECG ECG: Positive for: Interpreted By Me, Viewed By Me ECG Rhythm: Positive for: Sinus Rhythm, Nonspecific Changes Rate: 64 O2 Sat by Pulse Oximetry: 99 (RA) Pulse Ox Interpretation: Normal Medical Decision Making Medical Decision Making: Time: 2325 Impression: 68 y/o male with hepatic encephalopathy, in setting of known liver cirrhosis Plan: -- EKG -- Ammonia -- CMP -- Lact Acid, Plasma -- Lipase -- Magnesium -- ED Urine Dipstick -- CBC with Differentials -- PTT -- Prothrombin Time -- CXR Portable -- Heplock Insertion -- Accucheck Time: 36 -- Labs reviewed and significant for elevated LFTs and markedly elevated ammonia levels. PO Enulose ordered. Patient to be admitted for hyperammonemia and hepatic encephalopathy. Patient referred to Dr. Rowe for further management. Scribe Attestation: Documented by Loco Agosto, acting as a scribe Shruti Wilder MD. Provider Scribe Attestation: All medical record entries made by the Scribe were at my direction and personally dictated by me. I have reviewed the chart and agree that the record accurately reflects my personal performance of the history, physical exam, medical decision making, and the department course for this patient. I have also personally directed, reviewed, and agree with the discharge instructions and disposition. Disposition - Clinical Impression Clinical Impression: Hepatic encephalopathy, Hyperammonemia - Patient ED Disposition Is Patient to be Admitted: Yes Counseled Patient/Family Regarding: Studies Performed, Diagnosis - Disposition Disposition Time: 00:37 Condition: FAIR - Pt Status Changed To: Hospital Disposition Of: Inpatient - Admit Certification Admit to Inpatient:: After my assessment, the patient will require hosp italization for at least two midnights. This is because of the severity of symptoms shown, intensity of services needed, and/or the medical risk in this patient being treated as an outpatient.
[2019-01-06 00:12] LABS: ALB/GLOB RATIO 0.6 (1.0-2.1); ALBUMIN 2.9 g/dL (3.5-5.0); ALT/SGPT 79 U/L (21-72); AST/SGOT 108 U/L (17-59); BLOOD UREA NITROGEN 16 mg/dl (9-20); CALCIUM 8.9 mg/dL (8.4-10.2); GFR NON-AFRICAN AMERICAN > 60; LIPASE 139 U/L (23-300)
[2019-01-06] MEDS ORDERED: Flumazenil 0.1 mg/ml Inj (5ml) IVP ONE (07:02)
[2019-01-06] MEDS ORDERED: Lactulose 10 gm/15 ml (Rectal Use) PR ONE (07:03)
[2019-01-06] MEDS ORDERED: Midazolam 2 MG/2 ML VIAL ONE (07:13)
[2019-01-06] MEDS ORDERED: Midazolam 2 MG/2 ML VIAL IV ONE (07:30)
[2019-01-06] MEDS ORDERED: Chlorhexidine Gluconate 1 APPL/PKT TP ONE (07:37)
[2019-01-06] MEDS ORDERED: Propofol 10 mg/ml 1,000 MG/100 ML VIAL ONE (07:47)
[2019-01-06] MEDS ORDERED: Propofol 10 mg/ml 1,000 MG/100 ML VIAL IV SCH (08:30)
--- NOTE | 2019-01-06 08:38 | CP.PCM.CON ---
History of Present Illness - History of Present Illness History of Present Illness: Attending: Dr Rowe PMD:PMD: Jessica Wade or Pedro Altamirano Reason for Consult: Impending respiratory arrest Chief Complaint: altered Mental Status The patient was seen and examined on the MedSurg Unit HPI:The hx is obtained from the medical records and after review of the Laboratory and radiological records as the patient is very lethargic.He is a 68 years old male with hx of Liver cirrhosis, hepatic encephalopathy, liver cancer ,and Hypertension. He is brought to the ED in a confused state referring Abdominal pain. Apparently he was agitated in the ED and was given Ativan. His ammonia was found to 367 in the ED. AVP was later called on the MedSurg Unit because of the patient's elevated blood pressure. The patient was founf having agonal shallow respiration with response to pain. Romzacon was ordered. Because of the Delay in obtaining the medication and the possibility of the patient going into cardiac arrest, the pat iet was intubated emergently on the MedSurg Unit. PMH: Diabetes, Gastritis, HTN, HLD, CKD, Liver Cirrhosis and Hepatic encephalopathy PSH: No Surg Hx SH: Former alcoholic user, No illegal drug use, FH: States: Unknown Family Hx Allergies: NKDA Medication: Reviewed Review of Systems - Review of Systems Systems not reviewed;Unavailable: Altered Mental Status Review of Systems: Review of system is limited because ot the AMS Past Patient History - Infectious Disease Hx of Infectious Diseases: None - Past Medical History & Family History Past Medical History?: Yes - Past Social History Smoking Status: Never Smoked Chewing Tobacco Use: No Cigar Use: No - CARDIAC Hx Cardiac Disorders: Yes Hx Hypercholesterolemia: Yes Hx Hypertension: Yes - PULMONARY Hx Respiratory Disorders: No - NEUROLOGICAL Hx Neurological Disorder: No - HEENT Hx HEENT Problems: Yes Hx Cataracts: Yes - RENAL Hx Chronic Kidney Disease: No ( denies hx) - ENDOCRINE/METABOLIC Hx Endocrine Disorders: Yes Hx Diabetes Mellitus Type 2: Yes - HEMATOLOGICAL/ONCOLOGICAL Hx Blood Disorders: No Hx AIDS: No Hx Human Immunodeficiency Virus (HIV): No - INTEGUMENTARY Hx Dermatological Problems: No - MUSCULOSKELETAL/RHEUMATOLOGICAL Hx Musculoskeletal Disorders: Yes Hx Falls: Yes - GASTROINTESTINAL Hx Gastrointestinal Disorders: Yes Hx Gastritis: Yes Hx Liver Failure: Yes - GENITOURINARY/GYNECOLOGICAL Hx Genitourinary Disorders: No - PSYCHIATRIC Hx Psychophysiologic Disorder: No Hx Substance Use: No - SURGICAL HISTORY Hx Surgeries: Yes Other/Comment: TIPS 10years ago - ANESTHESIA Hx Anesthesia: Yes Hx Anesthesia Reactions: No Meds Allergies/Adverse Reactions: Allergies Allergy/AdvReac Type Severity Reaction Status Date / Time No Known Allergies Allergy Verified 01/05/19 23:20 - Medications Medications: Current Medications Propofol (Diprivan) 1,000 mg in 100 mls @ 2.585 mls/hr IV .Q24H [facility]; Protocol Stop: 01/07/19 08:20 Physical Exam - Constitutional Appears: In Acute Distress - Head Exam Head Exam: ATRAUMATIC, NORMAL INSPECTION, NORMOCEPHALIC - Eye Exam Eye Exam: EOMI Pupil Exam: PERRL - ENT Exam ENT Exam: Normal Exam, Normal External Ear Exam - Neck Exam Neck exam: Positive for: Normal Inspection - Respiratory Exam Respiratory Exam: Clear to Auscultation Bilateral. absent: Rales, Rhonchi, Wheezes - Cardiovascular Exam Cardiovascular Exam: REGULAR RHYTHM, RRR, +S1, +S2 - GI/Abdominal Exam GI & Abdominal Exam: Soft. absent: Mass, Organomegaly Additional comments: Decreased bowel sounds - Rectal Exam Rectal Exam: Deferred - Extremities Exam Extremities exam: Positive for: normal inspection - Back Exam Back exam: NORMAL INSPECTION - Neurological Exam Additional comments: Very lethargic, responding to painful stimuli opening the eyes. - Psychiatric Exam Additional comments: Lethargic - Skin Skin Exam: Dry, Intact, Normal Color, Warm Results - Vital Signs Recent Vital Signs: Last Vital Signs Temp 97.6 F 01/06/19 04:33 Pulse 61 01/06/19 04:33 Resp 20 01/06/19 04:33 BP 147/81 01/06/19 04:33 Pulse Ox 97 01/06/19 04:33 - Labs Result Diagrams: 01/06/19 06:30 01/06/19 06:30 Labs: Laboratory Results - last 24 hr 01/05/19 01/05/19 01/05/19 23:31 23:56 23:56 WBC RBC Hgb Hct MCV MCH MCHC RDW Plt Count MPV Neut % (Auto) Lymph % (Auto) [place] % (Auto) Eos % (Auto) Baso % (Auto) Neut # (Auto) Lymph # (Auto) [place] # (Auto) Eos # (Auto) Baso # (Auto) PT INR APTT Sodium 140 Potassium 5.0 Chloride 109 H Carbon Dioxide 24 Anion Gap 12 BUN 16 Creatinine 1.1 Est GFR ( Amer) > 60 Est GFR (Non-Af Amer) > 60 POC Glucose (mg/dL) 121 H Random Glucose 119 H Lactic Acid Calcium 8.9 Magnesium 2.0 Total Bilirubin 2.9 H AST 108 H ALT 79 H Alkaline Phosphatase 199 H D Ammonia 367 H* Total Protein 7.3 Albumin 2.9 L Globulin 4.4 H Albumin/Globulin Ratio 0.6 L Lipase 139 01/05/19 01/05/19 01/05/19 23:56 23:56 23:56 WBC 6.3 RBC 4.01 L Hgb 15.0 D Hct 42.6 MCV 106.2 H MCH 37.4 H MCHC 35.2 RDW 16.3 H Plt Count 66 L MPV 10.2 Neut % (Auto) 56.7 Lymph % (Auto) 24.7 [place] % (Auto) 14.9 H Eos % (Auto) 2.8 Baso % (Auto) 0.9 Neut # (Auto) 3.6 Lymph # (Auto) 1.6 [place] # (Auto) 0.9 H Eos # (Auto) 0.2 Baso # (Auto) 0.1 PT 15.7 H INR 1.4 APTT 32.6 Sodium Potassium Chloride Carbon Dioxide Anion Gap BUN Creatinine Est GFR ( Amer) Est GFR (Non-Af Amer) POC Glucose (mg/dL) Random Glucose Lactic Acid 2.1 Calcium Magnesium Total Bilirubin AST ALT Alkaline Phosphatase Ammonia Total Protein Albumin Globulin Albumin/Globulin Ratio Lipase 01/06/19 01/06/19 05:25 06:59 WBC RBC Hgb Hct MCV MCH MCHC RDW Plt Count MPV Neut % (Auto) Lymph % (Auto) [place] % (Auto) Eos % (Auto) Baso % (Auto) Neut # (Auto) Lymph # (Auto) [place] # (Auto) Eos # (Auto) Baso # (Auto) PT INR APTT Sodium Potassium Chloride Carbon Dioxide Anion Gap BUN Creatinine Est GFR ( Amer) Est GFR (Non-Af Amer) POC Glucose (mg/dL) 98 81 Random Glucose Lactic Acid Calcium Magnesium Total Bilirubin AST ALT Alkaline Phosphatase Ammonia Total Protein Albumin Globulin Albumin/Globulin Ratio Lipase - EKG Data EKG comments: NSR 64/min - Imaging and Cardiology Chest x-ray Status: Image reviewed by me Additional comment: Pre intubation: No infiltrate CXR Additional comment: Post Intubation : Poor lung expansion ET above Silvia No infiltrate Assessment & Plan - Assessment and Plan (Free Text) Assessment: #. Impending Respiratory arrest #. AMS due to Hepatic encephalopathy #. Hyperammoniemia wirh liver cirrhosis #. Hypertensive Urgency #. DM Insulin requiring Plan: 68 years old male with hx of Liver cirrhosis, hepatic encephalopathy, liver cancer,and Hypertension brought to the ED in a confused state referring Abdominal pain. Apparently he was agitated in the ED and was given Ativan. His ammonia was found to 367 in the ED. AVP was later called on the MedSurg Unit because of elevated blood pressure. The patient appeared to be in impending respiratory arrest,and so an emergent intubatation was done. #. Impending Respiratory arrest. The patient was intubated orotrachael by the hospitalist and transferred to ICU. - Follow ABG #. AMS due to Hepatic encephalopathy and Hyperammonemia - Lactulose Q 4Hrs - Consult Gastroenterology 3. liver cirrhosis - Continue Rifaximin #. Hypertensive Urgency - Hydralazine IVP Q6H - Coreg - Monitor BP #. DM Insulin requiring - Regular Insulin Q6H sliding scale, according to trace Vela MD - Date & Time Date: 01/06/19 Time: 08:38
[2019-01-06 08:49] LABS: BASO % 0.8 % (0.0-2.0); EOS # 0.1 K/uL (0.0-0.7); EOS % 2.1 % (0.0-4.0); HEMOGLOBIN 15.8 g/dL (12.0-18.0); LYMPH # 1.7 K/uL (1.0-4.3); MEAN CORPUSCULAR HEMOGLOBIN 38.3 pg (27.0-31.0); MEAN CORPUSCULAR HGB CONC 35.3 g/dL (33.0-37.0); MONO # 0.8 K/uL (0.0-0.8); MONO % 14.6 % (0.0-10.0); NEUT # 3.1 K/uL (1.8-7.0); NEUT % 53.5 % (50.0-75.0); NRBC % 0.2 % (0.0-0.0); RBC 4.13 Mil/uL (4.40-5.90); RED CELL DISTRIBUTION WIDTH 17.2 % (11.5-14.5); WHITE BLOOD COUNT 5.7 K/uL (4.8-10.8)
[2019-01-06 08:54] LABS: ALB/GLOB RATIO 0.6 (1.0-2.1); ALBUMIN 2.8 g/dL (3.5-5.0); ALT/SGPT 70 U/L (21-72); AST/SGOT 107 U/L (17-59); BLOOD UREA NITROGEN 17 mg/dl (9-20); CALCIUM 8.8 mg/dL (8.4-10.2); GFR NON-AFRICAN AMERICAN > 60
[2019-01-06 08:57] LABS: MEAN CELL VOLUME 108.3 fl (80.0-94.0)
[2019-01-06] MEDS: Cilostazol 50 mg Tab UD PO SCH ×2 (11:00→20:17)
[2019-01-06] MEDS ORDERED: Dextrose 50% SYRINGE Inj (50 ml) IVP ONE (11:19)
--- NOTE | 2019-01-06 11:40 | RAD ---
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 FINDINGS: In situ ETT, tip which lies approximately 2.1 cm above [place]. In situ NGT, the tip of which is located in good position in the left upper quadrant of the abdomen LUNGS: Suspect minor bibasilar atelectasis PLEURA: No significant pleural effusion identified, no pneumothorax apparent. CARDIOVASCULAR: No aortic atherosclerotic calcification present. Heart appears mildly enlarged. No pulmonary vascular congestion. OSSEOUS STRUCTURES: No significant abnormalities. VISUALIZED UPPER ABDOMEN: Normal. OTHER FINDINGS: None. IMPRESSION: ETT and NGT as above. Suspect minor bibasilar atelectasis.
[2019-01-06 11:41] LABS: ABG ALLEN TEST YES; ARTERIAL BLOOD GAS HCO3 26.4 mmol/L (21-28); ARTERIAL BLOOD GAS HEMOGLOBIN 15.9 g/dL (11.7-17.4); ARTERIAL BLOOD GAS O2 CAPACITY 21.6 mL/dL (16-24); ARTERIAL BLOOD GAS O2 CONTENT 21.4 ML/dL (15-23); ARTERIAL BLOOD GAS PCO2 36 mm/Hg (35-45); ARTERIAL BLOOD GAS PH 7.46 (7.35-7.45); ARTERIAL BLOOD GAS PO2 92 mm/Hg (80-100); ARTERIAL BLOOD GAS TCO2 26.7 mmol/L (22-28)
[2019-01-06 11:47] LABS: ABG ALLEN TEST YES; ARTERIAL BLOOD GAS HCO3 26.3 mmol/L (21-28); ARTERIAL BLOOD GAS O2 CONTENT 23.1 ML/dL (15-23); ARTERIAL BLOOD GAS O2 SAT 100.6 % (95-98); ARTERIAL BLOOD GAS PCO2 32 mm/Hg (35-45); ARTERIAL BLOOD GAS PH 7.49 (7.35-7.45); ARTERIAL BLOOD GAS PO2 425 mm/Hg (80-100); ARTERIAL BLOOD GAS TCO2 25.4 mmol/L (22-28)
--- NOTE | 2019-01-06 11:47 | RAD ---
Date of service: 01/05/2019 HISTORY: chest pain COMPARISON: Comparison chest dated 08/27/2014 TECHNIQUE: 1 view obtained. FINDINGS: LUNGS: Poor inspiration with low lung volumes, crowded bronchovascular markings and mild bibasilar atelectasis PLEURA: No significant pleural effusion identified, no pneumothorax apparent. CARDIOVASCULAR: No aortic atherosclerotic calcification present. Heart appears mildly enlarged no pulmonary vascular congestion. OSSEOUS STRUCTURES: No significant abnormalities. VISUALIZED UPPER ABDOMEN: Normal. OTHER FINDINGS: None. IMPRESSION: Poor inspiration with low lung volumes, crowded bronchovascular markings and mild bibasilar atelectasis
--- NOTE | 2019-01-06 12:44 | PCM.RRT ---
INSURANCE CLAIMS ANALYST Nurse Assessment - Situation Location: [address] [place] [address] Room Number: 660-1 INSURANCE CLAIMS ANALYST Reason for Call: Hypertension, Looks Sicker INSURANCE CLAIMS ANALYST Called By: RN - IV IV Inserted during INSURANCE CLAIMS ANALYST?: No New IV Insertion Tolerance:: Good - Respiratory Oxygen Delivery Method: T-piece Received Nebulizer Treatments: No Was the Patient Ventilated with Bag/Mask 100% O2?: Yes Secretions Suctioned?: Yes Was the Patient Intubated?: Yes Was the Patient Placed on a Ventilator?: Yes - Ventilator Settings Mode: AC Ventilator Respiratory Rate Settin Ventilator Tidal Volume Settin PEEP/CPAP (cm H2O): 5 SAO2 %: 100 FIO2 (% Oxygen): 50 - Medication Medications Administered During INSURANCE CLAIMS ANALYST: Versed 2mg IVP - Diagnostic Test Ordered EKG: Yes Chest X-Ray: Yes CT Scan: No - Stat Labs Ordered INSURANCE CLAIMS ANALYST Stat Labs Ordered: CBC, BMP, PT/PTT, LACTIC ACID, ABG CPR started during INSURANCE CLAIMS ANALYST?: No - Vital Signs Vital Signs: Rapid Response Vital Sign Blood Pressure 204/103 Pulse Rate 65 Oxygen Saturation 99 - Time INSURANCE CLAIMS ANALYST Ended Time INSURANCE CLAIMS ANALYST Ended: 07:20 - Vital Signs at end of INSURANCE CLAIMS ANALYST Vital Signs at end of INSURANCE CLAIMS ANALYST: Rapid Response End Vital Sign Blood Pressure 127/90 Pulse Rate 70 Respiratory Rate 21 O2 Sat by Pulse Oximetry 100 - Recommendations INSURANCE CLAIMS ANALYST Level of Care Recommendations: Transfer to ICU I.Reason for INSURANCE CLAIMS ANALYST - A) Acute Change in Patient: Subjective: 68 yo male with pmh of Liver cirrhosis, hepatic encephalopathy, liver cancer,and Hypertension. He is brought to the ED in a confused state referring Abdominal pain. ativan was given in the ED at night. His ammonia found to be 367. INSURANCE CLAIMS ANALYST was called today at 7:00 due to patient confusion and blood pressure of 204/103 hr 107 and patient was shallow breathing, and unresponsive to voice or tactile stimuli. EKG: normal sinuse rythm, with low voltage ABG: normal Due to Impending Respiratory arrest, Patient was intubated and sent to ICU for further management and treatment. Plan: Impending Respiratory arrest emergent intubation Follow up ABG ICU managment Confusion hepatic encephalopathy Continue Primary care team treatment. - Neurological Status (Select all that apply): Disoriented, Confused - Respiratory Oxygen Delivery Method: Intubated - Constitutional Appears: In Acute Distress - Head Head Exam: ATRAUMATIC, NORMAL INSPECTION, NORMOCEPHALIC - Eyes Eye Exam: Scleral icterus - Respiratory Exam Respiratory Exam: Decreased Breath Sounds, Respiratory Distress - Cardiovascular Exam Cardiovascular Exam: REGULAR RHYTHM, +S1, +S2 - GI/Abdominal Exam GI & Abdominal Exam: Soft, Normal Bowel Sounds - Neurological Exam Neurological Exam: Altered
--- NOTE | 2019-01-06 14:20 | CP.PCM.HP ---
History of Present Illness - History of Present Illness History of Present Illness: Chief complaint: Altered mental status History of present illness A 68 years old male with hx of alcoholic liver cirrhosis, Hepatic Enc ephalopathy, liver cancer,and Hypertension was brought in for altered mental status. He was brought to the ED in a confused state referring to abdominal pain. Apparently he was agitated in the ED and was given Ativan. His ammonia was found to be 367 in the ED. [employer] was later called on the MedSurg Unit because of the patient's elevated blood pressure. The patient was found having agonal shallow respiration with response to pain, and intubated Emergently on the Med-Surg Unit. Patient was transferred to ICU with the diagnosis of hepatic encephalopathy with respiratory arrest and impending status post intubation on mechanical ventilation. Present on Admission - Present on Admission Any Indicators Present on Admission: No Review of Systems - Review of Systems All systems: reviewed and no additional remarkable complaints except Review of Systems: as per HPI Past Patient History - Infectious Disease Hx of Infectious Diseases: None - Past Medical History & Family History Past Medical History?: Yes - Past Social History Smoking Status: Never Smoked Chewing Tobacco Use: No Cigar Use: No - CARDIAC Hx Cardiac Disorders: Yes Hx Hypercholesterolemia: Yes Hx Hypertension: Yes - PULMONARY Hx Respiratory Disorders: No - NEUROLOGICAL Hx Neurological Disorder: No - HEENT Hx HEENT Problems: Yes Hx Cataracts: Yes - RENAL Hx Chronic Kidney Disease: No ( denies hx) - ENDOCRINE/METABOLIC Hx Endocrine Disorders: Yes Hx Diabetes Mellitus Type 2: Yes - HEMATOLOGICAL/ONCOLOGICAL Hx Blood Disorders: No Hx AIDS: No Hx Human Immunodeficiency Virus (HIV): No - INTEGUMENTARY Hx Dermatological Problems: No - MUSCULOSKELETAL/RHEUMATOLOGICAL Hx Musculoskeletal Disorders: Yes Hx Falls: Yes - GASTROINTESTINAL Hx Gastrointestinal Disorders: Yes Hx Gastritis: Yes Hx Liver Failure: Yes - GENITOURINARY/GYNECOLOGICAL Hx Genitourinary Disorders: No - PSYCHIATRIC Hx Psychophysiologic Disorder: No Hx Substance Use: No - SURGICAL HISTORY Hx Surgeries: Yes Other/Comment: TIPS 10years ago - ANESTHESIA Hx Anesthesia: Yes Hx Anesthesia Reactions: No Meds Allergies/Adverse Reactions: Allergies Allergy/AdvReac Type Severity Reaction Status Date / Time No Known Allergies Allergy Verified 01/05/19 23:20 Physical Exam - Constitutional Additional comments: Intubated and on MV with FIO2 50%. - Head Exam Head Exam: ATRAUMATIC, NORMAL INSPECTION, NORMOCEPHALIC - Cardiovascular Exam Cardiovascular Exam: REGULAR RHYTHM, +S1, +S2 - GI/Abdominal Exam GI & Abdominal Exam: Normal Bowel Sounds, Soft. absent: Rigid - Extremities Exam Extremities exam: Positive for: normal capillary refill, normal inspection - Neurological Exam Additional comments: Unable to assess due to sedation. Normal DT Reflexes. Results - Vital Signs Recent Vital Signs: Last Vital Signs Temp 96.4 F L 01/06/19 12:00 Pulse 71 01/06/19 13:00 Resp 17 01/06/19 13:00 BP 115/62 01/06/19 13:00 Pulse Ox 100 01/06/19 13:00 - Labs Result Diagrams: 01/08/19 05:08 01/08/19 05:08 Labs: Laboratory Results - last 24 hr 01/05/19 01/05/19 01/05/19 23:31 23:56 23:56 WBC RBC Hgb Hct MCV MCH MCHC RDW Plt Count MPV Neut % (Auto) Lymph % (Auto) [place] % (Auto) Eos % (Auto) Baso % (Auto) Neut # (Auto) Lymph # (Auto) [place] # (Auto) Eos # (Auto) Baso # (Auto) PT INR APTT pCO2 pO2 HCO3 ABG pH ABG Total CO2 ABG O2 Saturation ABG O2 Content ABG Base Excess ABG Hemoglobin ABG Carboxyhemoglobin POC ABG HHb (Measured) ABG Methemoglobin ABG O2 Capacity [place] Test A-a O2 Difference Hgb O2 Saturation Vent Mode Mechanical Rate FiO2 Tidal Volume PEEP Sodium 140 Potassium 5.0 Chloride 109 H Carbon Dioxide 24 Anion Gap 12 BUN 16 Creatinine 1.1 Est GFR ( Amer) > 60 Est GFR (Non-Af Amer) > 60 POC Glucose (mg/dL) 121 H Random Glucose 119 H Lactic Acid Calcium 8.9 Magnesium 2.0 Total Bilirubin 2.9 H AST 108 H ALT 79 H Alkaline Phosphatase 199 H D Ammonia 367 H* Total Protein 7.3 Albumin 2.9 L Globulin 4.4 H Albumin/Globulin Ratio 0.6 L Lipase 139 Vitamin B12 TSH 3rd Generation 01/05/19 01/05/19 01/05/19 23:56 23:56 23:56 WBC 6.3 RBC 4.01 L Hgb 15.0 D Hct 42.6 MCV 106.2 H MCH 37.4 H MCHC 35.2 RDW 16.3 H Plt Count 66 L MPV 10.2 Neut % (Auto) 56.7 Lymph % (Auto) 24.7 [place] % (Auto) 14.9 H Eos % (Auto) 2.8 Baso % (Auto) 0.9 Neut # (Auto) 3.6 Lymph # (Auto) 1.6 [place] # (Auto) 0.9 H Eos # (Auto) 0.2 Baso # (Auto) 0.1 PT 15.7 H INR 1.4 APTT 32.6 pCO2 pO2 HCO3 ABG pH ABG Total CO2 ABG O2 Saturation ABG O2 Content ABG Base Excess ABG Hemoglobin ABG Carboxyhemoglobin POC ABG HHb (Measured) ABG Methemoglobin ABG O2 Capacity [place] Test A-a O2 Difference Hgb O2 Saturation Vent Mode Mechanical Rate FiO2 Tidal Volume PEEP Sodium Potassium Chloride Carbon Dioxide Anion Gap BUN Creatinine Est GFR ( Amer) Est GFR (Non-Af Amer) POC Glucose (mg/dL) Random Glucose Lactic Acid 2.1 Calcium Magnesium Total Bilirubin AST ALT Alkaline Phosphatase Ammonia Total Protein Albumin Globulin Albumin/Globulin Ratio Lipase Vitamin B12 TSH 3rd Generation 01/06/19 01/06/19 01/06/19 05:25 06:30 06:30 WBC 5.7 RBC 4.13 L Hgb 15.8 Hct 44.7 MCV 108.3 H D MCH 38.3 H MCHC 35.3 RDW 17.2 H Plt Count 65 L MPV 11.0 Neut % (Auto) 53.5 Lymph % (Auto) 29.0 [place] % (Auto) 14.6 H Eos % (Auto) 2.1 Baso % (Auto) 0.8 Neut # (Auto) 3.1 Lymph # (Auto) 1.7 [place] # (Auto) 0.8 Eos # (Auto) 0.1 Baso # (Auto) 0.0 PT INR APTT pCO2 pO2 HCO3 ABG pH ABG Total CO2 ABG O2 Saturation ABG O2 Content ABG Base Excess ABG Hemoglobin ABG Carboxyhemoglobin POC ABG HHb (Measured) ABG Methemoglobin ABG O2 Capacity [place] Test A-a O2 Difference Hgb O2 Saturation Vent Mode Mechanical Rate FiO2 Tidal Volume PEEP Sodium 140 Potassium 4.6 Chloride 109 H Carbon Dioxide 23 Anion Gap 13 BUN 17 Creatinine 1.2 Est GFR ( Amer) > 60 Est GFR (Non-Af Amer) > 60 POC Glucose (mg/dL) 98 Random Glucose 88 Lactic Acid Calcium 8.8 Magnesium Total Bilirubin 3.0 H AST 107 H ALT 70 Alkaline Phosphatase 184 H Ammonia Total Protein 7.1 Albumin 2.8 L Globulin 4.3 H Albumin/Globulin Ratio 0.6 L Lipase Vitamin B12 > 1000 H TSH 3rd Generation 23.00 H 01/06/19 01/06/19 01/06/19 06:30 06:30 06:59 WBC RBC Hgb Hct MCV MCH MCHC RDW Plt Count MPV Neut % (Auto) Lymph % (Auto) [place] % (Auto) Eos % (Auto) Baso % (Auto) Neut # (Auto) Lymph # (Auto) [place] # (Auto) Eos # (Auto) Baso # (Auto) PT INR APTT pCO2 pO2 HCO3 ABG pH ABG Total CO2 ABG O2 Saturation ABG O2 Content ABG Base Excess ABG Hemoglobin ABG Carboxyhemoglobin POC ABG HHb (Measured) ABG Methemoglobin ABG O2 Capacity [place] Test A-a O2 Difference Hgb O2 Saturation Vent Mode Mechanical Rate FiO2 Tidal Volume PEEP Sodium Potassium Chloride Carbon Dioxide Anion Gap BUN Creatinine Est GFR ( Amer) Est GFR (Non-Af Amer) POC Glucose (mg/dL) 81 Random Glucose Lactic Acid 3.6 H Calcium Magnesium Total Bilirubin AST ALT Alkaline Phosphatase Ammonia 317 H* Total Protein Albumin Globulin Albumin/Globulin Ratio Lipase Vitamin B12 TSH 3rd Generation 01/06/19 01/06/19 07:09 11:30 WBC RBC Hgb Hct MCV MCH MCHC RDW Plt Count MPV Neut % (Auto) Lymph % (Auto) [place] % (Auto) Eos % (Auto) Baso % (Auto) Neut # (Auto) Lymph # (Auto) [place] # (Auto) Eos # (Auto) Baso # (Auto) PT INR APTT pCO2 36 32 L pO2 92 425 H HCO3 26.4 26.3 ABG pH 7.46 H 7.49 H ABG Total CO2 26.7 25.4 ABG O2 Saturation 99.0 H 100.6 H ABG O2 Content 21.4 23.1 H ABG Base Excess 2.0 1.8 ABG Hemoglobin 15.9 16.0 ABG Carboxyhemoglobin 2.0 H 1.5 POC ABG HHb (Measured) 1.0 -0.6 L ABG Methemoglobin 1.4 1.2 ABG O2 Capacity 21.6 23.0 [place] Test Yes Yes A-a O2 Difference 13.0 248.0 Hgb O2 Saturation 95.6 97.9 Vent Mode A/c Mechanical Rate 12 FiO2 21.0 100.0 Tidal Volume 500 PEEP 5 Sodium Potassium Chloride Carbon Dioxide Anion Gap BUN Creatinine Est GFR ( Amer) Est GFR (Non-Af Amer) POC Glucose (mg/dL) Random Glucose Lactic Acid Calcium Magnesium Total Bilirubin AST ALT Alkaline Phosphatase Ammonia Total Protein Albumin Globulin Albumin/Globulin Ratio Lipase Vitamin B12 TSH 3rd Generation - EKG Data EKG comments: Sinus Atchycardia. LAD. LVH - Imaging and Cardiology Chest x-ray Status: Report reviewed by me Additional comment: Date of service: 01/06/2019 HISTORY: [employer] COMPARISON: Comparison chest 01/05/2019 TECHNIQUE: 1 view obtained. FINDINGS: In situ ETT, tip which lies approximately 2.1 cm above [place]. In situ NGT, the tip of which is located in good position in the left upper quadrant of the abdomen LUNGS: Suspect minor bibasilar atelectasis PLEURA: No significant pleural effusion identified, no pneumothorax apparent. CARDIOVASCULAR: No aortic atherosclerotic calcification present. Heart appears mildly enlarged. No pulmonary vascular congestion. OSSEOUS STRUCTURES: No significant abnormalities. VISUALIZED UPPER ABDOMEN: Normal. OTHER FINDINGS: None. IMPRESSION: ETT and NGT as above. Suspect minor bibasilar atelectasis. Assessment & Plan (1) Alcoholic cirrhosis of liver Status: Acute Priority: High (2) Hepatic encephalopathy Status: Acute Priority: High (3) DM type 2 (diabetes mellitus, type 2) Status: Acute (4) Altered mental status Status: Acute (5) Acute respiratory failure Assessment and Plan: S/P Intubation Status: Acute - Assessment and Plan (Free Text) Plan: Continue Current Care ABG and CXR Daily Pulmonary and Oncologit Consult
--- NOTE | 2019-01-06 14:57 | PCM.PROC ---
Procedures Attestation:: I certify that I have explained the specified Operation(s) or Procedure(s), risks, benefits and reasonable alternatives to the Patient and/or other person responsible. The opportunity was given to ask questions and all questions answered - Intubation Time Out Performed: Yes Sedative: Versed Laryngoscope: Jyotsna ET Tube Size: 8.0 ET Tube Uncuffed: No ET Tube Secured Locarion: Lips ET Tube Placement Confirmation: Visualized Passing Through Cords, Breath Sounds Equal Bilaterally, No Breath Sounds Over Epigastrum, Confirmation w/Capnometry Patient Tolerated Procedure: No Complications Procedure Immediate Complications: None Additional comments: the patient was intubated because of impending respiratory arrest
[2019-01-06] MEDS: Insulin Regular 100 units/ml SC SCH ×3 (16:01→23:58)
[2019-01-06] MEDS ORDERED: Dextrose 5%-0.9% NS 100 ML IV SCH (16:15)
--- NOTE | 2019-01-06 16:35 | CARD ---
APPROVED REPORT Date of service: 01/05/2019 EKG Measurement Heart [id number] CO [id number] [id number] <Conclusion> Normal sinus rhythm Left axis deviation Minimal voltage criteria for LVH, may be normal variant Possible Anterolateral infarct, age undetermined Abnormal ECG
[2019-01-07] MEDS: Insulin Regular 100 units/ml SC SCH ×5 (02:44→22:39)
[2019-01-07 05:39] LABS: ABG ALLEN TEST YES; ARTERIAL BLOOD GAS HCO3 23.8 mmol/L (21-28); ARTERIAL BLOOD GAS HEMOGLOBIN 15.9 g/dL (11.7-17.4); ARTERIAL BLOOD GAS O2 CONTENT 22.1 ML/dL (15-23); ARTERIAL BLOOD GAS O2 SAT 100.4 % (95-98); ARTERIAL BLOOD GAS PCO2 32 mm/Hg (35-45); ARTERIAL BLOOD GAS PH 7.44 (7.35-7.45); ARTERIAL BLOOD GAS PO2 170 mm/Hg (80-100); ARTERIAL BLOOD GAS TCO2 22.7 mmol/L (22-28)
[2019-01-07 05:43] LABS: HEMOGLOBIN 15.5 g/dL (12.0-18.0); MEAN CORPUSCULAR HGB CONC 35.4 g/dL (33.0-37.0); RBC 4.08 Mil/uL (4.40-5.90); WHITE BLOOD COUNT 8.4 K/uL (4.8-10.8)
[2019-01-07 05:58] LABS: CALCIUM 8.6 mg/dL (8.4-10.2)
[2019-01-07 06:00] LABS: MEAN CELL VOLUME 107.1 fl (80.0-94.0)
--- NOTE | 2019-01-07 09:29 | CARD ---
APPROVED REPORT Date of service: 01/06/2019 EKG Measurement Heart [id number] [id number] <Conclusion> Normal sinus rhythm Left axis deviation Minimal voltage criteria for LVH, may be normal variant Possible Lateral infarct, age undetermined Abnormal ECG
--- NOTE | 2019-01-07 09:47 | RAD ---
Date of service: 01/07/2019 HISTORY: Intubated COMPARISON: No prior. TECHNIQUE: 1 view obtained. FINDINGS: LUNGS: No active pulmonary disease. PLEURA: No significant pleural effusion identified, no pneumothorax apparent. CARDIOVASCULAR: No aortic atherosclerotic calcification present. Normal cardiac size. ET tube and NG tube unchanged. No congestive change. OSSEOUS STRUCTURES: No significant abnormalities. VISUALIZED UPPER ABDOMEN: Normal. OTHER FINDINGS: None. IMPRESSION: No active disease.
[2019-01-07] MEDS: Cilostazol 50 mg Tab UD PO SCH (10:22)
--- NOTE | 2019-01-07 13:05 | CP.CCUPN ---
CCU Subjective - Physician Review Events Since Last Encounter (Free Text): 01/07/19 13:03 intubated, sedate CCU Objective - Vital Signs / Intake & Output Vital Signs (Last 4 hours): Vital Signs Temp Pulse Resp BP Pulse Ox 01/07/19 12:00 98.2 F 99 H 22 108/70 97 Intake and Output (Last 8hrs): Intake & Output 01/06/19 01/07/19 01/07/19 22:59 06:59 14:59 Intake Total 424 690 Output Total 0 Balance 424 690 Weight 189 lb Intake: IV 224 690 Oral 200 0 Output: Emesis 0 Other: # Bowel Movements 0 - Physical Exam Physical Exam Limitations: Positive for: Altered Mental Status Head: Positive for: Atraumatic, Normocephalic Pupils: Positive for: PERRL Extroacular Muscles: Positive for: EOMI Conjunctiva: Positive for: Icteric Ears: Positive for: Normal Mouth: Positive for: Moist Mucous Membranes Nose (External): Positive for: Atraumatic Respiratory/Chest: Positive for: Clear to Auscultation, Good Air Exchange Cardiovascular: Positive for: Regular Rate and Rhythm Abdomen: Positive for: Normal Bowel Sounds. Negative for: Tenderness, Distention Upper Extremity: Positive for: Normal Inspection Lower Extremity: Positive for: Normal Inspection Psychiatric: Negative for: Alert - Medications Active Medications: Active Medications Generic Name Dose Route Start Last Admin Trade Name Freq PRN Reason Stop Dose Admin Carvedilol 6.25 mg 01/06/19 21:00 01/07/19 08:49 Coreg NG Not Given Q12 [facility] Cilostazol 50 mg 01/06/19 10:30 01/07/19 10:22 Pletal PO Not Given Q12 [facility] Hydralazine HCl 10 mg 01/06/19 16:00 01/07/19 09:02 Apresoline IV Not Given Q6 [facility] Dextrose/Sodium Chloride 1,000 mls @ 50 mls/hr 01/06/19 17:00 01/07/19 09:02 Dextrose 5%-0.9% Ns 500 Ml IV 01/07/19 16:55 50 mls/hr .Q20H JOANNA Administration Insulin Human Regular 0 units 01/06/19 11:30 01/07/19 06:31 Humulin R SC Not Given Q6H [facility] Protocol Lactulose 20 gm 01/06/19 11:00 01/07/19 10:22 Enulose GT 20 gm Q6H JOANNA Administration Pantoprazole Sodium 40 mg 01/07/19 13:15 Protonix Susp NG DAILY JOANNA Rifaximin 550 mg 01/06/19 10:30 01/07/19 08:53 Xifaxan NG 550 mg Q12 JOANNA Administration Protocol - Patient Studies Lab Studies: Lab Studies 01/07/19 01/07/19 01/07/19 Range/Units 11:40 06:21 05:35 WBC (4.8-10.8) K/uL RBC (4.40-5.90) Mil/uL Hgb (12.0-18.0) g/dL Hct (35.0-51.0) % MCV (80.0-94.0) fl MCH (27.0-31.0) pg MCHC (33.0-37.0) g/dL RDW (11.5-14.5) % Plt Count (130-400) K/uL pCO2 (35-45) mm/Hg pO2 (80-100) mm/Hg HCO3 (21-28) mmol/L ABG pH (7.35-7.45) ABG Total CO2 (22-28) mmol/L ABG O2 Saturation (95-98) % ABG O2 Content (15-23) ML/dL ABG Base Excess (-2.0-3.0) mmol/L ABG Hemoglobin (11.7-17.4) g/dL ABG Carboxyhemoglobin (0.5-1.5) % POC ABG HHb (Measured) (0.0-5.0) % ABG Methemoglobin (0.0-3.0) % ABG O2 Capacity (16-24) mL/dL [place] Test A-a O2 Difference mm/Hg Hgb O2 Saturation (95.0-98.0) % Vent Mode Mechanical Rate FiO2 % Tidal Volume PEEP Sodium (132-148) mmol/l Potassium (3.6-5.0) MMOL/L Chloride (98-107) mmol/L Carbon Dioxide (22-30) mmol/L Anion Gap (10-20) BUN (9-20) mg/dl Creatinine (0.8-1.5) mg/dl Est GFR ( Amer) Est GFR (Non-Af Amer) POC Glucose (mg/dL) 144 H 148 H (65-110) mg/dL Random Glucose (75-110) mg/dL Calcium (8.4-10.2) mg/dL Ammonia 255 H* (9-33) umol/L 01/07/19 01/07/19 01/07/19 Range/Units 05:31 05:31 05:31 WBC 8.4 (4.8-10.8) K/uL RBC 4.08 L (4.40-5.90) Mil/uL Hgb 15.5 (12.0-18.0) g/dL Hct 43.7 (35.0-51.0) % MCV 107.1 H (80.0-94.0) fl MCH 38.0 H (27.0-31.0) pg MCHC 35.4 (33.0-37.0) g/dL RDW 17.0 H (11.5-14.5) % Plt Count 67 L (130-400) K/uL pCO2 32 L (35-45) mm/Hg pO2 170 H (80-100) mm/Hg HCO3 23.8 (21-28) mmol/L ABG pH 7.44 (7.35-7.45) ABG Total CO2 22.7 (22-28) mmol/L ABG O2 Saturation 100.4 H (95-98) % ABG O2 Content 22.1 (15-23) ML/dL ABG Base Excess -1.5 (-2.0-3.0) mmol/L ABG Hemoglobin 15.9 (11.7-17.4) g/dL ABG Carboxyhemoglobin 1.6 H (0.5-1.5) % POC ABG HHb (Measured) -0.4 L (0.0-5.0) % ABG Methemoglobin 1.0 (0.0-3.0) % ABG O2 Capacity 22.0 (16-24) mL/dL [place] Test Yes A-a O2 Difference 147.0 mm/Hg Hgb O2 Saturation 97.8 (95.0-98.0) % Vent Mode A/c Mechanical Rate 12 FiO2 50.0 % Tidal Volume 400 PEEP 5 Sodium 140 (132-148) mmol/l Potassium 4.5 (3.6-5.0) MMOL/L Chloride 109 H (98-107) mmol/L Carbon Dioxide 22 (22-30) mmol/L Anion Gap 14 (10-20) BUN 28 H (9-20) mg/dl Creatinine 1.6 H (0.8-1.5) mg/dl Est GFR ( Amer) 52 Est GFR (Non-Af Amer) 43 POC Glucose (mg/dL) (65-110) mg/dL Random Glucose 149 H (75-110) mg/dL Calcium 8.6 (8.4-10.2) mg/dL Ammonia (9-33) umol/L 01/06/19 01/06/19 01/06/19 Range/Units 23:49 16:59 11:29 WBC (4.8-10.8) K/uL RBC (4.40-5.90) Mil/uL Hgb (12.0-18.0) g/dL Hct (35.0-51.0) % MCV (80.0-94.0) fl MCH (27.0-31.0) pg MCHC (33.0-37.0) g/dL RDW (11.5-14.5) % Plt Count (130-400) K/uL pCO2 (35-45) mm/Hg pO2 (80-100) mm/Hg HCO3 (21-28) mmol/L ABG pH (7.35-7.45) ABG Total CO2 (22-28) mmol/L ABG O2 Saturation (95-98) % ABG O2 Content (15-23) ML/dL ABG Base Excess (-2.0-3.0) mmol/L ABG Hemoglobin (11.7-17.4) g/dL ABG Carboxyhemoglobin (0.5-1.5) % POC ABG HHb (Measured) (0.0-5.0) % ABG Methemoglobin (0.0-3.0) % ABG O2 Capacity (16-24) mL/dL [place] Test A-a O2 Difference mm/Hg Hgb O2 Saturation (95.0-98.0) % Vent Mode Mechanical Rate FiO2 % Tidal Volume PEEP Sodium (132-148) mmol/l Potassium (3.6-5.0) MMOL/L Chloride (98-107) mmol/L Carbon Dioxide (22-30) mmol/L Anion Gap (10-20) BUN (9-20) mg/dl Creatinine (0.8-1.5) mg/dl Est GFR ( Amer) Est GFR (Non-Af Amer) POC Glucose (mg/dL) 152 H 110 77 (65-110) mg/dL Random Glucose (75-110) mg/dL Calcium (8.4-10.2) mg/dL Ammonia (9-33) umol/L Laboratory Results - last 24 hr 01/06/19 01/06/19 01/06/19 11:29 16:59 23:49 WBC RBC Hgb Hct MCV MCH MCHC RDW Plt Count pCO2 pO2 HCO3 ABG pH ABG Total CO2 ABG O2 Saturation ABG O2 Content ABG Base Excess ABG Hemoglobin ABG Carboxyhemoglobin POC ABG HHb (Measured) ABG Methemoglobin ABG O2 Capacity [place] Test A-a O2 Difference Hgb O2 Saturation Vent Mode Mechanical Rate FiO2 Tidal Volume PEEP Sodium Potassium Chloride Carbon Dioxide Anion Gap BUN Creatinine Est GFR ( Amer) Est GFR (Non-Af Amer) POC Glucose (mg/dL) 77 110 152 H Random Glucose Calcium Ammonia 01/07/19 01/07/19 01/07/19 05:31 05:31 05:31 WBC 8.4 RBC 4.08 L Hgb 15.5 Hct 43.7 MCV 107.1 H MCH 38.0 H MCHC 35.4 RDW 17.0 H Plt Count 67 L pCO2 32 L pO2 170 H HCO3 23.8 ABG pH 7.44 ABG Total CO2 22.7 ABG O2 Saturation 100.4 H ABG O2 Content 22.1 ABG Base Excess -1.5 ABG Hemoglobin 15.9 ABG Carboxyhemoglobin 1.6 H POC ABG HHb (Measured) -0.4 L ABG Methemoglobin 1.0 ABG O2 Capacity 22.0 [place] Test Yes A-a O2 Difference 147.0 Hgb O2 Saturation 97.8 Vent Mode A/c Mechanical Rate 12 FiO2 50.0 Tidal Volume 400 PEEP 5 Sodium 140 Potassium 4.5 Chloride 109 H Carbon Dioxide 22 Anion Gap 14 BUN 28 H Creatinine 1.6 H Est GFR ( Amer) 52 Est GFR (Non-Af Amer) 43 POC Glucose (mg/dL) Random Glucose 149 H Calcium 8.6 Ammonia 01/07/19 01/07/19 01/07/19 05:35 06:21 11:40 WBC RBC Hgb Hct MCV MCH MCHC RDW Plt Count pCO2 pO2 HCO3 ABG pH ABG Total CO2 ABG O2 Saturation ABG O2 Content ABG Base Excess ABG Hemoglobin ABG Carboxyhemoglobin POC ABG HHb (Measured) ABG Methemoglobin ABG O2 Capacity [place] Test A-a O2 Difference Hgb O2 Saturation Vent Mode Mechanical Rate FiO2 Tidal Volume PEEP Sodium Potassium Chloride Carbon Dioxide Anion Gap BUN Creatinine Est GFR ( Amer) Est GFR (Non-Af Amer) POC Glucose (mg/dL) 148 H 144 H Random Glucose Calcium Ammonia 255 H* Radiology Impressions: Radiology Impressions Chest X-Ray 01/06/19 07:23 IMPRESSION: ETT and NGT as above. Suspect minor bibasilar atelectasis. Chest X-Ray 01/07/19 05:00 IMPRESSION: No active disease. Fingerstick Blood Sugar Results: 148 Review of Systems - Review of Systems Systems not reviewed;Unavailable: Intubated Assessment/Plan (1) Hyperammonemia Assessment and plan: 68yo M. PMHx liver cirrhosis, liver cancer, hepatic encephalopathy, HTN. p/w recurrent hepatic encephalopathy with hyperammonemia. Neuro: metabolic encephalopathy from liver failure with hyperammonemia, which is downtrending, continue lactulose and rifaximin. Pulm: acute respiratory failure, intubated on PRVC. CV: hemodynamically stable. HTN on Coreg po q12h and hydralazine IV q6h. Hem: thrombocytopenic Renal: acute kidney injury, monitoring urine output Endo: no acute issues. GI: NPO, tube feeds, Jevity. ID: no acute issues DVT proph - heparin sq in 24h once, urinary bleeding stops, SCD's GI proph - protonix mauro for strict I/O's during acute illness Code status - full code Critical Care time spent 35 minutes Multi-disciplinary rounds were performed with house staff, nursing, speech therapy, respiratory therapy, pharmacy and nutrition with integrated input from the primary team/attending and other consulting services. The documented time is cumulative and includes review of patient data/exams/labs/chart review and examination of the patient on rounds and throughout the day; time is exclusive of any procedures or teaching time. Current Visit: Yes Status: Acute
[2019-01-07] MEDS: Pantoprazole 40 mg Susp UD NG SCH (17:19)
[2019-01-07 18:21] LABS: SQUAMOUS EPITHIAL < 1 /hpf (0-5); URINE BACTERIA MANY (<OCC); URINE BILIRUBIN NEGATIVE (NEGATIVE); URINE BLOOD LARGE (NEGATIVE); URINE CLARITY CLOUDY (Clear); URINE COLOR AMBER (YELLOW); URINE GLUCOSE (UA) >=500 mg/dL (NEGATIVE); URINE LEUKOCYTE ESTERASE NEG Leu/uL (Negative); URINE PROTEIN 30 mg/dL (NEGATIVE)
[2019-01-07] MEDS ORDERED: Dextrose 5%/0.9% NS 1,000 ML IV SCH (21:15)
--- NOTE | 2019-01-07 22:04 | CP.PCM.CON ---
History of Present Illness - History of Present Illness History of Present Illness: 68 year old male with a history of HTN, HL, liver cirrhosis, liver tumor ?HCC, admitted with hepatic encephalopathy, respiratory failure on vent support, thrombocytopenia and coagulopathy. The patient is currently intubated and I am unable to obtain a history from the patient. He follows with Dr. Wade (cotton ball machine tender) for his liver disease and liver tumor. He presented with lethargy and confusion secondary to hepatic encephalopathy. His plt count was noted to be in the 60s,000. He has mild bleeding at his mauro catheter site and hematuria. Past medical, surgical, family, social history cannot be obtained from the patient. Allergies: Per documentation NKA Review of systems cannot be obtained from the patient. Past Patient History - Infectious Disease Hx of Infectious Diseases: None - Past Medical History & Family History Past Medical History?: Yes - Past Social History Alcohol: Other (former alcoholic) - CARDIAC Hx Hypercholesterolemia: Yes Hx Hypertension: Yes - PULMONARY Hx Respiratory Disorders: No - NEUROLOGICAL Hx Neurological Disorder: No - HEENT Hx HEENT Problems: Yes Hx Cataracts: Yes - RENAL Hx Chronic Kidney Disease: Yes - ENDOCRINE/METABOLIC Hx Endocrine Disorders: Yes Hx Diabetes Mellitus Type 2: Yes - HEMATOLOGICAL/ONCOLOGICAL Hx Human Immunodeficiency Virus (HIV): No - INTEGUMENTARY Hx Dermatological Problems: No - MUSCULOSKELETAL/RHEUMATOLOGICAL Hx Musculoskeletal Disorders: Yes Hx Falls: Yes - GASTROINTESTINAL Hx Gastritis: Yes - GENITOURINARY/GYNECOLOGICAL Hx Genitourinary Disorders: No - PSYCHIATRIC Hx Depression: No - SURGICAL HISTORY Hx Surgeries: Yes Other/Comment: TIPS 10years ago - ANESTHESIA Hx Anesthesia: Yes Hx Anesthesia Reactions: No Meds Allergies/Adverse Reactions: Allergies Allergy/AdvReac Type Severity Reaction Status Date / Time No Known Allergies Allergy Verified 01/05/19 23:20 - Medications Medications: Current Medications Carvedilol (Coreg) 6.25 mg NG Q12 [facility] Last Admin: 01/07/19 21:22 Dose: 6.25 mg Cilostazol (Pletal) 50 mg PO Q12 [facility] Last Admin: 01/07/19 10:22 Dose: Not Given Hydralazine HCl (Apresoline) 10 mg IV Q6 [facility] Last Admin: 01/07/19 16:50 Dose: Not Given Dextrose/Sodium Chloride (Dextrose 5%/0.9% Ns 1000 Ml) 1,000 mls @ 50 mls/hr IV .Q20H [facility] Stop: 01/08/19 21:04 Insulin Human Regular (Humulin R) 0 units SC Q6H [facility]; Protocol Last Admin: 01/07/19 16:51 Dose: 1 unit Lactulose (Enulose) 20 gm GT Q6H [facility] Last Admin: 01/07/19 17:16 Dose: 20 gm Pantoprazole Sodium (Protonix Susp) 40 mg NG DAILY [facility] Last Admin: 01/07/19 17:19 Dose: 40 mg Rifaximin (Xifaxan) 550 mg NG Q12 [facility]; Protocol Last Admin: 01/07/19 21:22 Dose: 550 mg Physical Exam - Head Exam Head Exam: ATRAUMATIC - Eye Exam Eye Exam: Normal appearance - ENT Exam ENT Exam: Mucous Membranes Dry - Respiratory Exam Respiratory Exam: NORMAL BREATHING PATTERN - Cardiovascular Exam Cardiovascular Exam: +S1, +S2 - GI/Abdominal Exam GI & Abdominal Exam: Normal Bowel Sounds - Extremities Exam Extremities exam: Positive for: pedal edema - Psychiatric Exam Psychiatric exam: Flat Affect - Skin Skin Exam: Warm Results - Vital Signs Recent Vital Signs: Last Vital Signs Temp 99.7 F H 01/07/19 16:00 Pulse 92 H 01/07/19 21:22 Resp 20 01/07/19 18:00 BP 130/72 01/07/19 21:22 Pulse Ox 95 01/07/19 18:00 - Labs Result Diagrams: 01/07/19 05:31 01/07/19 05:31 Labs: Laboratory Results - last 24 hr 01/06/19 01/07/19 01/07/19 23:49 05:31 05:31 WBC 8.4 RBC 4.08 L Hgb 15.5 Hct 43.7 MCV 107.1 H MCH 38.0 H MCHC 35.4 RDW 17.0 H Plt Count 67 L pCO2 pO2 HCO3 ABG pH ABG Total CO2 ABG O2 Saturation ABG O2 Content ABG Base Excess ABG Hemoglobin ABG Carboxyhemoglobin POC ABG HHb (Measured) ABG Methemoglobin ABG O2 Capacity [place] Test A-a O2 Difference Hgb O2 Saturation Vent Mode Mechanical Rate FiO2 Tidal Volume PEEP Sodium 140 Potassium 4.5 Chloride 109 H Carbon Dioxide 22 Anion Gap 14 BUN 28 H Creatinine 1.6 H Est GFR ( Amer) 52 Est GFR (Non-Af Amer) 43 POC Glucose (mg/dL) 152 H Random Glucose 149 H Calcium 8.6 Ammonia Urine Color Urine Clarity Urine pH Ur Specific [place] Urine Protein Urine Glucose (UA) Urine Ketones Urine Blood Urine Nitrate Urine Bilirubin Urine Urobilinogen Ur Leukocyte Esterase Urine RBC (Auto) Urine Microscopic WBC Ur Squamous Epith Cells Urine Bacteria Hyaline Casts 01/07/19 01/07/19 01/07/19 05:31 05:35 06:21 WBC RBC Hgb Hct MCV MCH MCHC RDW Plt Count pCO2 32 L pO2 170 H HCO3 23.8 ABG pH 7.44 ABG Total CO2 22.7 ABG O2 Saturation 100.4 H ABG O2 Content 22.1 ABG Base Excess -1.5 ABG Hemoglobin 15.9 ABG Carboxyhemoglobin 1.6 H POC ABG HHb (Measured) -0.4 L ABG Methemoglobin 1.0 ABG O2 Capacity 22.0 [place] Test Yes A-a O2 Difference 147.0 Hgb O2 Saturation 97.8 Vent Mode A/c Mechanical Rate 12 FiO2 50.0 Tidal Volume 400 PEEP 5 Sodium Potassium Chloride Carbon Dioxide Anion Gap BUN Creatinine Est GFR ( Amer) Est GFR (Non-Af Amer) POC Glucose (mg/dL) 148 H Random Glucose Calcium Ammonia 255 H* Urine Color Urine Clarity Urine pH Ur Specific [place] Urine Protein Urine Glucose (UA) Urine Ketones Urine Blood Urine Nitrate Urine Bilirubin Urine Urobilinogen Ur Leukocyte Esterase Urine RBC (Auto) Urine Microscopic WBC Ur Squamous Epith Cells Urine Bacteria Hyaline Casts 01/07/19 01/07/19 01/07/19 11:40 16:37 18:08 WBC RBC Hgb Hct MCV MCH MCHC RDW Plt Count pCO2 pO2 HCO3 ABG pH ABG Total CO2 ABG O2 Saturation ABG O2 Content ABG Base Excess ABG Hemoglobin ABG Carboxyhemoglobin POC ABG HHb (Measured) ABG Methemoglobin ABG O2 Capacity [place] Test A-a O2 Difference Hgb O2 Saturation Vent Mode Mechanical Rate FiO2 Tidal Volume PEEP Sodium Potassium Chloride Carbon Dioxide Anion Gap BUN Creatinine Est GFR ( Amer) Est GFR (Non-Af Amer) POC Glucose (mg/dL) 144 H 151 H Random Glucose Calcium Ammonia Urine Color [place] Urine Clarity Cloudy Urine pH 5.0 Ur Specific [place] 1.031 H Urine Protein 30 Urine Glucose (UA) >=500 Urine Ketones Negative Urine Blood Large Urine Nitrate Positive H Urine Bilirubin Negative Urine Urobilinogen 2.0 Ur Leukocyte Esterase Neg Urine RBC (Auto) 221 H Urine Microscopic WBC 29 H Ur Squamous Epith Cells < 1 Urine Bacteria Many H Hyaline Casts 3-5 H Assessment & Plan (1) Thrombocytopenia Assessment and Plan: likely secondary to liver disease, splenic sequestration Status: Acute (2) Coagulopathy Assessment and Plan: liver disease vit k and FFP PRN Status: Acute (3) Liver mass Assessment and Plan: AFP and CEA elevated ?hepatocellular carcinoma outpatient f/u with cotton ball machine tender Thank you for this interesting consult. Status: Acute
[2019-01-08 04:17] LABS: ABG ALLEN TEST YES; ARTERIAL BLOOD GAS HCO3 21.1 mmol/L (21-28); ARTERIAL BLOOD GAS HEMOGLOBIN 15.7 g/dL (11.7-17.4); ARTERIAL BLOOD GAS O2 CAPACITY 21.3 mL/dL (16-24); ARTERIAL BLOOD GAS O2 CONTENT 21.1 ML/dL (15-23); ARTERIAL BLOOD GAS O2 SAT 98.9 % (95-98); ARTERIAL BLOOD GAS PCO2 29 mm/Hg (35-45); ARTERIAL BLOOD GAS PH 7.41 (7.35-7.45); ARTERIAL BLOOD GAS PO2 89 mm/Hg (80-100); ARTERIAL BLOOD GAS TCO2 19.3 mmol/L (22-28)
[2019-01-08] MEDS: Insulin Regular 100 units/ml SC SCH ×3 (04:58→22:54)
[2019-01-08 05:24] LABS: HEMOGLOBIN 15.3 g/dL (12.0-18.0); MEAN CORPUSCULAR HEMOGLOBIN 37.8 pg (27.0-31.0); MEAN CORPUSCULAR HGB CONC 34.8 g/dL (33.0-37.0); RBC 4.03 Mil/uL (4.40-5.90); RED CELL DISTRIBUTION WIDTH 17.2 % (11.5-14.5); WHITE BLOOD COUNT 8.4 K/uL (4.8-10.8)
[2019-01-08 05:33] LABS: CALCIUM 8.3 mg/dL (8.4-10.2)
[2019-01-08 05:52] LABS: MEAN CELL VOLUME 108.7 fl (80.0-94.0)
[2019-01-08] MEDS: Pantoprazole 40 mg Susp UD NG SCH (08:15)
--- NOTE | 2019-01-08 09:51 | RAD ---
Date of service: 01/08/2019 PROCEDURE: CHEST RADIOGRAPH, 1 VIEW HISTORY: Intubated COMPARISON: 02/2019 FINDINGS: LUNGS: Clear. PLEURA: No pneumothorax or pleural fluid seen. CARDIOVASCULAR: No aortic atherosclerotic calcification present. Normal heart size. ET tube approximately 1.5 cm above the tracheal [place]. The consideration should be given to more proximal positioning of the ET tube tip. Nasogastric tube unchanged. OSSEOUS STRUCTURES: No significant abnormalities. VISUALIZED UPPER ABDOMEN: Normal. OTHER FINDINGS: None. IMPRESSION: No acute infiltrate. ET tube tip 1.5 cm above tracheal [place]. Consider repositioning more proximally. Nasogastric tube unchanged.
--- NOTE | 2019-01-08 17:29 | CP.PCM.PN ---
Subjective - Date & Time of Evaluation Date of Evaluation: 01/08/19 Time of Evaluation: 16:00 - Subjective Subjective: Appears comfortable Objective - Vital Signs/Intake and Output Vital Signs (last 24 hours): Temp Pulse Resp BP Pulse Ox 98.0 F 100 H 25 H 127/70 100 01/08/19 12:00 01/08/19 14:00 01/08/19 14:00 01/08/19 14:00 01/08/19 14:00 Intake and Output: 01/08/19 01/08/19 06:59 18:59 Intake Total 900 540 Output Total 400 Balance 500 540 - Medications Medications: Current Medications Carvedilol (Coreg) 6.25 mg NG Q12 [facility] Last Admin: 01/08/19 08:14 Dose: Not Given Cilostazol (Pletal) 50 mg PO Q12 [facility] Last Admin: 01/07/19 10:22 Dose: Not Given Hydralazine HCl (Apresoline) 10 mg IV Q6 [facility] Last Admin: 01/08/19 10:19 Dose: Not Given Dextrose/Sodium Chloride (Dextrose 5%/0.9% Ns 1000 Ml) 1,000 mls @ 50 mls/hr IV .Q20H [facility] Stop: 01/08/19 21:04 Last Admin: 01/07/19 22:25 Dose: 50 mls/hr Insulin Human Regular (Humulin R) 0 units SC Q6H [facility]; Protocol Last Admin: 01/08/19 14:36 Dose: 2 unit Lactulose (Enulose) 20 gm GT Q6H [facility] Last Admin: 01/08/19 10:19 Dose: 20 gm Levothyroxine Sodium (Synthroid) 50 mcg PO DAILY@0630 [facility] Pantoprazole Sodium (Protonix Susp) 40 mg NG DAILY [facility] Last Admin: 01/08/19 08:15 Dose: 40 mg Rifaximin (Xifaxan) 550 mg NG Q12 [facility]; Protocol Last Admin: 01/08/19 08:15 Dose: 550 mg - Labs Labs: 01/08/19 05:08 01/08/19 05:08 PT 15.7 Seconds (9.8-13.1) H 01/05/19 23:56 INR 1.4 01/05/19 23:56 APTT 32.6 Seconds (25.6-37.1) 01/05/19 23:56 - Head Exam Head Exam: ATRAUMATIC - ENT Exam ENT Exam: Mucous Membranes Dry - Respiratory Exam Respiratory Exam: NORMAL BREATHING PATTERN - Cardiovascular Exam Cardiovascular Exam: +S1, +S2 - GI/Abdominal Exam GI & Abdominal Exam: Normal Bowel Sounds Assessment and Plan (1) Thrombocytopenia Assessment & Plan: liver cirrhosis and splenic sequestration Status: Acute (2) Coagulopathy Assessment & Plan: liver disease may have nutritional component vit k and FFP PRN Status: Acute (3) Liver mass Assessment & Plan: ? 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
--- NOTE | 2019-01-08 18:28 | CT ---
Date of service: 01/08/2019 PROCEDURE: CT HEAD WITHOUT CONTRAST. HISTORY: AMS-hepatic encephalopathy. COMPARISON: None available. TECHNIQUE: Axial computed tomography images were obtained through the head/brain without intravenous contrast. Supplemental Coronal and Sagittal projections created and reviewed. Radiation dose: Total exam DLP = 1039.76 mGy-cm. This CT exam was performed using one or more of the following dose reduction techniques: Automated exposure control, adjustment of the mA and/or kV according to patient size, and/or use of iterative reconstruction technique. FINDINGS: HEMORRHAGE: No intracranial hemorrhage. BRAIN: No mass effect or edema. No atrophy or chronic microvascular ischemic changes. VENTRICLES: Unremarkable. No hydrocephalus. CALVARIUM: Unremarkable. PARANASAL SINUSES: Chronic sphenoid air cell disease. MASTOID AIR CELLS: Unremarkable as visualized. No inflammatory changes. OTHER FINDINGS: None. IMPRESSION: No acute intracranial abnormalities. No significant findings to account for the clinical presentation.
--- NOTE | 2019-01-08 18:41 | CP.PCM.PN ---
Subjective - Date & Time of Evaluation Date of Evaluation: 01/07/19 Objective - Vital Signs/Intake and Output Vital Signs (last 24 hours): Temp Pulse Resp BP Pulse Ox 98.0 F 100 H 25 H 127/70 100 01/08/19 12:00 01/08/19 14:00 01/08/19 14:00 01/08/19 14:00 01/08/19 14:00 Intake and Output: 01/08/19 01/08/19 06:59 18:59 Intake Total 900 540 Output Total 400 Balance 500 540 - Medications Medications: Current Medications Carvedilol (Coreg) 6.25 mg NG Q12 [facility] Last Admin: 01/08/19 08:14 Dose: Not Given Cilostazol (Pletal) 50 mg PO Q12 [facility] Last Admin: 01/07/19 10:22 Dose: Not Given Hydralazine HCl (Apresoline) 10 mg IV Q6 [facility] Last Admin: 01/08/19 10:19 Dose: Not Given Dextrose/Sodium Chloride (Dextrose 5%/0.9% Ns 1000 Ml) 1,000 mls @ 50 mls/hr IV .Q20H [facility] Stop: 01/08/19 21:04 Last Admin: 01/07/19 22:25 Dose: 50 mls/hr Insulin Human Regular (Humulin R) 0 units SC Q6H [facility]; Protocol Last Admin: 01/08/19 14:36 Dose: 2 unit Lactulose (Enulose) 20 gm GT Q6H [facility] Last Admin: 01/08/19 10:19 Dose: 20 gm Levothyroxine Sodium (Synthroid) 50 mcg PO DAILY@0630 [facility] Pantoprazole Sodium (Protonix Susp) 40 mg NG DAILY [facility] Last Admin: 01/08/19 08:15 Dose: 40 mg Rifaximin (Xifaxan) 550 mg NG Q12 [facility]; Protocol Last Admin: 01/08/19 08:15 Dose: 550 mg - Labs Labs: 01/08/19 05:08 01/08/19 05:08 PT 15.7 Seconds (9.8-13.1) H 01/05/19 23:56 INR 1.4 01/05/19 23:56 APTT 32.6 Seconds (25.6-37.1) 01/05/19 23:56 Assessment and Plan (1) Alcoholic cirrhosis of liver Status: Acute (2) Hepatic encephalopathy Status: Acute (3) DM type 2 (diabetes mellitus, type 2) Status: Acute (4) Altered mental status Status: Acute (5) Acute respiratory failure Status: Acute
--- NOTE | 2019-01-08 18:41 | CP.PCM.PN ---
Subjective - Date & Time of Evaluation Date of Evaluation: 01/08/19 Objective - Vital Signs/Intake and Output Vital Signs (last 24 hours): Temp Pulse Resp BP Pulse Ox 98.0 F 100 H 25 H 127/70 100 01/08/19 12:00 01/08/19 14:00 01/08/19 14:00 01/08/19 14:00 01/08/19 14:00 Intake and Output: 01/08/19 01/08/19 06:59 18:59 Intake Total 900 540 Output Total 400 Balance 500 540 - Medications Medications: Current Medications Carvedilol (Coreg) 6.25 mg NG Q12 [facility] Last Admin: 01/08/19 08:14 Dose: Not Given Cilostazol (Pletal) 50 mg PO Q12 [facility] Last Admin: 01/07/19 10:22 Dose: Not Given Hydralazine HCl (Apresoline) 10 mg IV Q6 [facility] Last Admin: 01/08/19 10:19 Dose: Not Given Dextrose/Sodium Chloride (Dextrose 5%/0.9% Ns 1000 Ml) 1,000 mls @ 50 mls/hr IV .Q20H [facility] Stop: 01/08/19 21:04 Last Admin: 01/07/19 22:25 Dose: 50 mls/hr Insulin Human Regular (Humulin R) 0 units SC Q6H [facility]; Protocol Last Admin: 01/08/19 14:36 Dose: 2 unit Lactulose (Enulose) 20 gm GT Q6H [facility] Last Admin: 01/08/19 10:19 Dose: 20 gm Levothyroxine Sodium (Synthroid) 50 mcg PO DAILY@0630 [facility] Pantoprazole Sodium (Protonix Susp) 40 mg NG DAILY [facility] Last Admin: 01/08/19 08:15 Dose: 40 mg Rifaximin (Xifaxan) 550 mg NG Q12 [facility]; Protocol Last Admin: 01/08/19 08:15 Dose: 550 mg - Labs Labs: 01/08/19 05:08 01/08/19 05:08 PT 15.7 Seconds (9.8-13.1) H 01/05/19 23:56 INR 1.4 01/05/19 23:56 APTT 32.6 Seconds (25.6-37.1) 01/05/19 23:56 Assessment and Plan (1) Alcoholic cirrhosis of liver Status: Acute (2) Hepatic encephalopathy Status: Acute (3) DM type 2 (diabetes mellitus, type 2) Status: Acute (4) Altered mental status Status: Acute (5) Acute respiratory failure Status: Acute
--- NOTE | 2019-01-08 23:45 | CP.PCM.CON ---
History of Present Illness - History of Present Illness History of Present Illness: 68 yo male with h/o HCC admitted and intubated due to altered mental status. History obtained from his daughter. Patient has HCC for the past 2 years. Prior to that had cirrhosis due to alcohol use. Has had TIPS and after tumor discov ered had ablation. Has been been taking pills daily for the HCC (sorafenib?) and since then his ammonia level has tended to be more unstable. Found in ER to have very elevated ammonia level. CT of liver in October shows multiple liver masses. the largest of which appeared stable in size. Review of Systems - Review of Systems Systems not reviewed;Unavailable: Altered Mental Status, Intubated Past Patient History - Infectious Disease Hx of Infectious Diseases: None - Past Medical History & Family History Past Medical History?: Yes - Past Social History Smoking Status: Never Smoked Chewing Tobacco Use: No Cigar Use: No - CARDIAC Hx Cardiac Disorders: Yes Hx Hypercholesterolemia: Yes Hx Hypertension: Yes - PULMONARY Hx Respiratory Disorders: No - NEUROLOGICAL Hx Neurological Disorder: No - HEENT Hx HEENT Problems: Yes Hx Cataracts: Yes - RENAL Hx Chronic Kidney Disease: No ( denies hx) - ENDOCRINE/METABOLIC Hx Endocrine Disorders: Yes Hx Diabetes Mellitus Type 2: Yes - HEMATOLOGICAL/ONCOLOGICAL Hx Blood Disorders: No Hx AIDS: No Hx Human Immunodeficiency Virus (HIV): No - INTEGUMENTARY Hx Dermatological Problems: No - MUSCULOSKELETAL/RHEUMATOLOGICAL Hx Musculoskeletal Disorders: Yes Hx Falls: Yes - GASTROINTESTINAL Hx Gastrointestinal Disorders: Yes Hx Gastritis: Yes Hx Liver Failure: Yes - GENITOURINARY/GYNECOLOGICAL Hx Genitourinary Disorders: No - PSYCHIATRIC Hx Psychophysiologic Disorder: No Hx Substance Use: No - SURGICAL HISTORY Hx Surgeries: Yes Other/Comment: TIPS 10years ago - ANESTHESIA Hx Anesthesia: Yes Hx Anesthesia Reactions: No Meds Allergies/Adverse Reactions: Allergies Allergy/AdvReac Type Severity Reaction Status Date / Time No Known Allergies Allergy Verified 01/05/19 23:20 - Medications Medications: Current Medications Carvedilol (Coreg) 6.25 mg NG Q12 [facility] Last Admin: 01/08/19 20:32 Dose: 6.25 mg Cilostazol (Pletal) 50 mg PO Q12 [facility] Last Admin: 01/07/19 10:22 Dose: Not Given Hydralazine HCl (Apresoline) 10 mg IV Q6 [facility] Last Admin: 01/08/19 21:08 Dose: Not Given Insulin Human Regular (Humulin R) 0 units SC Q6H [facility]; Protocol Last Admin: 01/08/19 22:54 Dose: Not Given Lactulose (Enulose) 20 gm GT Q6H [facility] Last Admin: 01/08/19 22:53 Dose: 20 gm Levothyroxine Sodium (Synthroid) 50 mcg PO DAILY@0630 [facility] Pantoprazole Sodium (Protonix Susp) 40 mg NG DAILY [facility] Last Admin: 01/08/19 08:15 Dose: 40 mg Rifaximin (Xifaxan) 550 mg NG Q12 [facility]; Protocol Last Admin: 01/08/19 20:32 Dose: 550 mg Physical Exam - Constitutional Appears: Chronically Ill - Head Exam Head Exam: ATRAUMATIC - Eye Exam Eye Exam: Normal appearance - ENT Exam ENT Exam: Normal Exam - Neck Exam Neck exam: Positive for: Normal Inspection - Respiratory Exam Respiratory Exam: Clear to Auscultation Bilateral - Cardiovascular Exam Cardiovascular Exam: REGULAR RHYTHM - GI/Abdominal Exam GI & Abdominal Exam: Distended, Normal Bowel Sounds - Extremities Exam Extremities exam: Positive for: normal inspection Results - Vital Signs Recent Vital Signs: Last Vital Signs Temp 100.8 F H 01/08/19 20:00 Pulse 114 H 01/08/19 21:58 Resp 28 H 01/08/19 21:58 BP 121/46 L 01/08/19 21:58 Pulse Ox 100 01/08/19 21:58 - Labs Result Diagrams: 01/08/19 05:08 01/08/19 05:08 Labs: Laboratory Results - last 24 hr 01/08/19 01/08/19 01/08/19 04:02 04:50 05:08 WBC 8.4 RBC 4.03 L Hgb 15.3 Hct 43.9 MCV 108.7 H MCH 37.8 H MCHC 34.8 RDW 17.2 H Plt Count 71 L pCO2 29 L pO2 89 HCO3 21.1 ABG pH 7.41 ABG Total CO2 19.3 L ABG O2 Saturation 98.9 H ABG O2 Content 21.1 ABG Base Excess -4.8 L ABG Hemoglobin 15.7 ABG Carboxyhemoglobin 2.1 H POC ABG HHb (Measured) 1.1 ABG Methemoglobin 1.3 ABG O2 Capacity 21.3 [place] Test Yes A-a O2 Difference 89.0 Hgb O2 Saturation 95.6 Vent Mode A/c Mechanical Rate 10 FiO2 30.0 Tidal Volume 400 PEEP 5 Sodium Potassium Chloride Carbon Dioxide Anion Gap BUN Creatinine Est GFR ( Amer) Est GFR (Non-Af Amer) POC Glucose (mg/dL) 193 H Random Glucose Calcium Ammonia Free T4 Free T3 pg/mL TSH 3rd Generation Ur Random Sodium Ur Random Potassium 01/08/19 01/08/19 01/08/19 05:08 07:45 09:55 WBC RBC Hgb Hct MCV MCH MCHC RDW Plt Count pCO2 pO2 HCO3 ABG pH ABG Total CO2 ABG O2 Saturation ABG O2 Content ABG Base Excess ABG Hemoglobin ABG Carboxyhemoglobin POC ABG HHb (Measured) ABG Methemoglobin ABG O2 Capacity [place] Test A-a O2 Difference Hgb O2 Saturation Vent Mode Mechanical Rate FiO2 Tidal Volume PEEP Sodium 140 Potassium 4.3 Chloride 111 H Carbon Dioxide 18 L Anion Gap 15 BUN 42 H Creatinine 1.8 H Est GFR ( Amer) 46 Est GFR (Non-Af Amer) 38 POC Glucose (mg/dL) Random Glucose 198 H Calcium 8.3 L Ammonia 170 H* D Free T4 0.95 Free T3 pg/mL TSH 3rd Generation Ur Random Sodium Ur Random Potassium 01/08/19 01/08/19 01/08/19 10:13 11:15 13:00 WBC RBC Hgb Hct MCV MCH MCHC RDW Plt Count pCO2 pO2 HCO3 ABG pH ABG Total CO2 ABG O2 Saturation ABG O2 Content ABG Base Excess ABG Hemoglobin ABG Carboxyhemoglobin POC ABG HHb (Measured) ABG Methemoglobin ABG O2 Capacity [place] Test A-a O2 Difference Hgb O2 Saturation Vent Mode Mechanical Rate FiO2 Tidal Volume PEEP Sodium Potassium Chloride Carbon Dioxide Anion Gap BUN Creatinine Est GFR ( Amer) Est GFR (Non-Af Amer) POC Glucose (mg/dL) 231 H Random Glucose Calcium Ammonia Free T4 Free T3 pg/mL 2.80 TSH 3rd Generation 4.43 Ur Random Sodium < 5 Ur Random Potassium 28.5 01/08/19 01/08/19 17:35 21:18 WBC RBC Hgb Hct MCV MCH MCHC RDW Plt Count pCO2 pO2 HCO3 ABG pH ABG Total CO2 ABG O2 Saturation ABG O2 Content ABG Base Excess ABG Hemoglobin ABG Carboxyhemoglobin POC ABG HHb (Measured) ABG Methemoglobin ABG O2 Capacity [place] Test A-a O2 Difference Hgb O2 Saturation Vent Mode Mechanical Rate FiO2 Tidal Volume PEEP Sodium Potassium Chloride Carbon Dioxide Anion Gap BUN Creatinine Est GFR ( Amer) Est GFR (Non-Af Amer) POC Glucose (mg/dL) 219 H 253 H Random Glucose Calcium Ammonia Free T4 Free T3 pg/mL TSH 3rd Generation Ur Random Sodium Ur Random Potassium Assessment & Plan (1) Hepatic encephalopathy Assessment and Plan: Due to cirrhosis and HCC. Continue lactulose and rifaximin. Patient has h/o prior TIPS procedure and may not have varices. Status: Acute Priority: High - Date & Time Date: 01/08/19 Time: 17:00
[2019-01-09] MEDS ORDERED: Midazolam 2 MG/2 ML VIAL IV ONE (00:20)
--- NOTE | 2019-01-09 01:31 | PN ---
DATE: 01/08/2019 CRITICAL CARE PROGRESS NOTE LOCATION: The patient in ICU bed 433. TIME SPENT: 45 minutes. SUBJECTIVE: The patient is seen and evaluated at the bedside. Past medical, surgical, family, social history reviewed. Case was discussed in multidisciplinary ICU rounds this morning. 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 Overnight on AC/PRVC, rate amount 10, tidal volume of 400, FiO2 30%. No sedation. Respiratory: Observed rate of 500, minute ventilation 9.2 liters, oxygen saturation 100%, peak airway pressure 11, end-tidal CO2 of 31. Intake 1520, output of 1400, positive balance of 120. Weight 192 pounds. PHYSICAL EXAMINATION: HEAD, EYES, EARS, NOSE AND THROAT: Sclerae muddy. Endotracheal tube in place. Oral mucosa moist. LUNGS: Bilateral breath sounds. Clear to auscultation anteriorly and laterally. HEART: Rhythm regular. S1, S2 normal intensity. ABDOMEN: Bowel sounds present. No tenderness. No distention. EXTREMITIES: Lower extremity, no edema. NEUROLOGIC: Remains lethargic. Opens eyes on calling name. CURRENT MEDICATIONS: Include Coreg 6.25 mg NG every 12 hours, Pletal 50 mg p.o. every 12 hours, D5 normal at 50 mL per hour, hydralazine 10 mL IV every 6 hours, Accu-Chek with regular insulin coverage, lactulose 20 g GT every 6 hours, Synthroid 50 mcg daily, Protonix 40 mg daily, Xifaxan 550 NG every 12 hours. LABORATORY DATA: WBC 8.4, hemoglobin 15.3, hematocrit 43.9, platelet count 71. PT is 15.7, INR 1.4, PTT 32.6. ABG; pH 7.41, pCO2 of 29, pO2 of 89, saturation 98.9. On AC/PRVC, rate 10, tidal volume 400, FiO2 30%, PEEP of 5. SMA-7: Sodium 140, potassium 4.3, chloride 111, CO2 of 18, blood urea nitrogen 42, creatinine 1.8, random glucose 231, calcium 8.3. Ammonia level is 170. PT 4.95. TSH of 4.43. Urine analysis: Nitrate positive. Bilirubin negative. Leukocyte esterase negative, microscopic wbc 29. Microbiology: Nasal smear MRSA negative. Chest x-ray from this morning, no acute infiltrate. Endotracheal tube 1.5 cm above the montserrat. No pneumothorax. Nasogastric tube in place. IMPRESSION: A 68-year-old male with ethyl alcohol-related liver cirrhosis, mass in the liver, questionable liver cancer, hypertension, admitted with hepatic encephalopathy with hyperammonemia. 1. Neurologic: Altered mental status likely related to metabolic encephalopathy from liver failure. Ammonia level is trending down. The patient is more arousable than before. Continue lactulose and rifaximin. 2. Pulmonary: Acute respiratory failure, remains intubated, on mechanical ventilation. The patient's mental status is not clear enough to protect his airway. Continue weaning as tolerated. 3. Cardiovascular: Hemodynamically stable. Hypertension, improved on Coreg and hydralazine. 4. Hematology: Thrombocytopenia related to liver disease. 5. Renal: Acute kidney injury. Urine output adequate. Bloody output from previous Howe placement improving. Replaced with catheter. Hold anticoagulation due to high risk for bleeding. 6. Endocrinology: No acute issues. 7. Gastrointestinal: On Jevity at 60 mL/hour meets the protein requirement. Continue water flush as suggested by consult on 200 mL three times daily. Hepatic liver cirrhosis, hepatic encephalopathy. 8. Infectious Disease: No acute issues. However, urine shows white blood cells could be related to the trauma. We will repeat urine for any evidence of urinary tract infection. Keep head of bed 30 degrees up. Continue deep venous thrombosis prophylaxis, gastrointestinal prophylaxis with Protonix. Howe for strict intake and output. Code status full. Stephon Peters MD
[2019-01-09 03:34] LABS: ABG ALLEN TEST YES; ARTERIAL BLOOD GAS HCO3 24.3 mmol/L (21-28); ARTERIAL BLOOD GAS O2 CAPACITY 19.1 mL/dL (16-24); ARTERIAL BLOOD GAS O2 SAT 99.4 % (95-98); ARTERIAL BLOOD GAS PCO2 36 mm/Hg (35-45); ARTERIAL BLOOD GAS PH 7.42 (7.35-7.45); ARTERIAL BLOOD GAS PO2 90 mm/Hg (80-100); ARTERIAL BLOOD GAS TCO2 24.5 mmol/L (22-28)
[2019-01-09] MEDS: Levothyroxine 50 MCG TAB PO SCH (05:43)
[2019-01-09 05:54] LABS: HEMOGLOBIN 13.6 g/dL (12.0-18.0); MEAN CORPUSCULAR HEMOGLOBIN 37.6 pg (27.0-31.0); MEAN CORPUSCULAR HGB CONC 34.6 g/dL (33.0-37.0); RBC 3.62 Mil/uL (4.40-5.90); RED CELL DISTRIBUTION WIDTH 17.4 % (11.5-14.5); WHITE BLOOD COUNT 11.3 K/uL (4.8-10.8)
[2019-01-09 06:02] LABS: MEAN CELL VOLUME 108.6 fl (80.0-94.0)
[2019-01-09] MEDS: Insulin Regular 100 units/ml SC SCH ×5 (06:19→22:54)
[2019-01-09] MEDS: Pantoprazole 40 mg Susp UD NG SCH (08:30)
--- NOTE | 2019-01-09 14:50 | CP.CCUPN ---
CCU Subjective - Physician Review Subjective (Free Text): Remains essentially obtunded, eyes open at times, but not interactive nor following any commands. Breathing 24 on AC 10, did not tolerate SBT on low CPAP and PS up to 20 with RR into the 30s after 3 minutes. T max 100.4F last 24H. Temps mostly 99-100; SBPs 120-130s, HR 100s. Approx 1.70 liter positive fluid balance. On D5NSS at50 ml/hr. ROS: No other pertinent negs or positive on 10+ system review obtainable due to lethargic status Other PMSFH: All other Nursing and physician documentation reviewed to date; no new pertinent info noted relevant to current medical problems. EXAM- HEENT: + icterus, pupils equal, 3 mm and reactive, no gaze preference, opens eyes spontaneously and briefly to pain, but no sustained wakeful state NECK: no visible JVD, supple, carotids equal upstroke bilat/no bruits CHEST: decreased BS bases, no wheezes audible HEART: regular, distant, tachy S1S2, no murmur audible, no rubs. ABD: soft, ++distention with ascites, no focal tenderness, BS hypoactive EXT: + anasarca with +++ edema; no calf tenderness or palpable cords, distal pulses intact and symmetrical NEURO: withdraws to pain stimuli, + tone SKIN: no rashes LABS: WBC= 11.3 HGB= 13.6 PLTs = 65K COAGS: INR = 1.4 on 01/05/19 7.42/36/90 on 30% oxygen Na= 142 K= 4.6 Cl= 114 HCO3= 21 BUN/Cr= 50/1.6 BS= 313 TFTs normal Ammonia 170 yesterday. CXR: (my interp)- ETT position OK above montserrat; clear lung reid, no new consolidation as compared to previous films. CT Brain: no new pathology. IMPRESSION / MAJOR PROBLEMS NOW: 1. Acute hypoxemic Resp Failure, 2 metabolic encephalopathy 2. Hyperammonemia 3. Azotemia / Dehydration, doubt HRS, ATN, NIRAJ 4. Uncontrolled DM II 5. Thrombocytopenia / Mild Coagulopathy 2 liver disease. 6. 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 PLAN: 1. MV support, still obtunded, MV weans if neuromental status improves. Day#4 on MV. 2. Only BM x 1 overnight. Lactulose- increase to 4x daily / Rifaximin: already at max dose. 3. Increase IVF hydration and water via enteral tube feeds. 4. May need insulin drip to control hyperglycemia. Check serum osmo. 5. Discuss with Solar Sales Representative regarding ideal formula for enteral nutritional support and to limit regeneration of ammonia. Time spent with this patient did not overlap with any other provider's medical or critical care time. Additionally the code selected for the services rendered in this note includes the time spent: talking to the patients family, associated physicians and reviewing hospital data/results not listed here which extended to a total of 30 minutes of critical care.
--- NOTE | 2019-01-09 18:15 | CP.PCM.PN ---
Subjective - Date & Time of Evaluation Date of Evaluation: 01/09/19 Time of Evaluation: 18:13 - Subjective Subjective: Patient remains obtunded Objective - Vital Signs/Intake and Output Vital Signs (last 24 hours): Temp Pulse Resp BP Pulse Ox 101.1 F H 105 H 28 H 139/62 97 01/09/19 16:00 01/09/19 16:35 01/09/19 16:00 01/09/19 16:35 01/09/19 16:00 Intake and Output: 01/09/19 01/09/19 06:59 18:59 Intake Total 1890 1700 Output Total 700 Balance 1190 1700 - Medications Medications: Current Medications Carvedilol (Coreg) 6.25 mg NG Q12 [facility] Last Admin: 01/09/19 08:28 Dose: Not Given Cilostazol (Pletal) 50 mg PO Q12 [facility] Last Admin: 01/07/19 10:22 Dose: Not Given Hydralazine HCl (Apresoline) 10 mg IV Q6 [facility] Last Admin: 01/09/19 16:35 Dose: 10 mg Insulin Human Regular (Humulin R) 0 units SC Q6H [facility]; Protocol Last Admin: 01/09/19 16:42 Dose: 4 unit Lactulose (Enulose) 20 gm GT Q6H [facility] Last Admin: 01/09/19 16:36 Dose: 20 gm Levothyroxine Sodium (Synthroid) 50 mcg PO DAILY@0630 [facility] Last Admin: 01/09/19 05:43 Dose: 50 mcg Pantoprazole Sodium (Protonix Susp) 40 mg NG DAILY [facility] Last Admin: 01/09/19 08:30 Dose: 40 mg Rifaximin (Xifaxan) 550 mg NG Q12 [facility]; Protocol Last Admin: 01/09/19 08:30 Dose: 550 mg - Labs Labs: 01/09/19 05:38 01/09/19 05:38 PT 15.7 Seconds (9.8-13.1) H 01/05/19 23:56 INR 1.4 01/05/19 23:56 APTT 32.6 Seconds (25.6-37.1) 01/05/19 23:56 - Head Exam Head Exam: ATRAUMATIC - Eye Exam Eye Exam: Normal appearance - ENT Exam ENT Exam: Normal Exam - Neck Exam Neck Exam: Full ROM - Respiratory Exam Respiratory Exam: Clear to Ausculation Bilateral - Cardiovascular Exam Cardiovascular Exam: REGULAR RHYTHM - GI/Abdominal Exam GI & Abdominal Exam: Soft, Normal Bowel Sounds. absent: Tenderness Assessment and Plan (1) Hepatic encephalopathy Assessment & Plan: Ammonia level still high though improved. Continue QID lactulose and rifaximin. Status: Acute
--- NOTE | 2019-01-09 23:10 | CP.PCM.CON ---
History of Present Illness - History of Present Illness History of Present Illness: 68 y/o admitted for Hepatic Encephalopathy 2/2 liver cirrhosis 2/2 ETOH abuse. Intubated for airway protection. Former Heavy Drinker. Very high Ammonia Level. VS as below. Head: Neg Adeno Pos Selina. Heart RRR NS1S2 Neg M Lungs: clear to A and P Abdo S, NT, pos BS. Ext, No c,c,e Neuro: In stupor. Opens eyes to painful stimulus. Labs as below.. Imaging studies as below. a/p Cont care as per ICU. Cont MV, did not tolerate PSV trial. Would not attempt to liberate from MV until much more awake. Monitor ABG's. Treat elevated Ammonia level. AVOID any sedatives. Treat any infections. PUD and DVT Px. Will f/u. Past Patient History - Infectious Disease Hx of Infectious Diseases: None - Past Medical History & Family History Past Medical History?: Yes - Past Social History Smoking Status: Never Smoked Chewing Tobacco Use: No Cigar Use: No - CARDIAC Hx Cardiac Disorders: Yes Hx Hypercholesterolemia: Yes Hx Hypertension: Yes - PULMONARY Hx Respiratory Disorders: No - NEUROLOGICAL Hx Neurological Disorder: No - HEENT Hx HEENT Problems: Yes Hx Cataracts: Yes - RENAL Hx Chronic Kidney Disease: No ( denies hx) - ENDOCRINE/METABOLIC Hx Endocrine Disorders: Yes Hx Diabetes Mellitus Type 2: Yes - HEMATOLOGICAL/ONCOLOGICAL Hx Blood Disorders: No Hx AIDS: No Hx Human Immunodeficiency Virus (HIV): No - INTEGUMENTARY Hx Dermatological Problems: No - MUSCULOSKELETAL/RHEUMATOLOGICAL Hx Musculoskeletal Disorders: Yes Hx Falls: Yes - GASTROINTESTINAL Hx Gastrointestinal Disorders: Yes Hx Gastritis: Yes Hx Liver Failure: Yes - GENITOURINARY/GYNECOLOGICAL Hx Genitourinary Disorders: No - PSYCHIATRIC Hx Psychophysiologic Disorder: No Hx Substance Use: No - SURGICAL HISTORY Hx Surgeries: Yes Other/Comment: TIPS 10years ago - ANESTHESIA Hx Anesthesia: Yes Hx Anesthesia Reactions: No Meds Allergies/Adverse Reactions: Allergies Allergy/AdvReac Type Severity Reaction Status Date / Time No Known Allergies Allergy Verified 01/05/19 23:20 - Medications Medications: Current Medications Carvedilol (Coreg) 6.25 mg NG Q12 [facility] Last Admin: 01/09/19 21:17 Dose: 6.25 mg Cilostazol (Pletal) 50 mg PO Q12 [facility] Last Admin: 01/07/19 10:22 Dose: Not Given Hydralazine HCl (Apresoline) 10 mg IV Q6 [facility] Last Admin: 01/09/19 21:15 Dose: 10 mg Insulin Human Regular (Humulin R) 0 units SC Q6H [facility]; Protocol Last Admin: 01/09/19 22:54 Dose: 3 unit Lactulose (Enulose) 20 gm GT Q6H [facility] Last Admin: 01/09/19 22:55 Dose: 20 gm Levothyroxine Sodium (Synthroid) 50 mcg PO DAILY@0630 [facility] Last Admin: 01/09/19 05:43 Dose: 50 mcg Pantoprazole Sodium (Protonix Susp) 40 mg NG DAILY [facility] Last Admin: 01/09/19 08:30 Dose: 40 mg Rifaximin (Xifaxan) 550 mg NG Q12 [facility]; Protocol Last Admin: 01/09/19 21:18 Dose: 550 mg Results - Vital Signs Recent Vital Signs: Last Vital Signs Temp 98.1 F 01/09/19 22:00 Pulse 97 H 01/09/19 22:00 Resp 26 H 01/09/19 22:00 BP 135/63 01/09/19 22:00 Pulse Ox 100 01/09/19 22:00 - Labs Result Diagrams: 01/09/19 05:38 01/09/19 05:38 Labs: Laboratory Results - last 24 hr 01/09/19 01/09/19 01/09/19 03:27 04:14 05:38 WBC 11.3 H RBC 3.62 L Hgb 13.6 Hct 39.3 MCV 108.6 H MCH 37.6 H MCHC 34.6 RDW 17.4 H Plt Count 65 L pCO2 36 pO2 90 HCO3 24.3 ABG pH 7.42 ABG Total CO2 24.5 ABG O2 Saturation 99.4 H ABG O2 Content 19.0 ABG Base Excess -0.7 ABG Hemoglobin 14.0 ABG Carboxyhemoglobin 2.3 H POC ABG HHb (Measured) 0.6 ABG Methemoglobin 1.1 ABG O2 Capacity 19.1 Lupillo Test Yes A-a O2 Difference 79.0 Hgb O2 Saturation 96.0 Vent Mode A/c Mechanical Rate 10 FiO2 30.0 Tidal Volume 400 PEEP 5 Sodium Potassium Chloride Carbon Dioxide Anion Gap BUN Creatinine Est GFR ( Amer) Est GFR (Non-Af Amer) POC Glucose (mg/dL) 291 H Random Glucose Calcium Ammonia 01/09/19 01/09/19 01/09/19 05:38 11:07 11:53 WBC RBC Hgb Hct MCV MCH MCHC RDW Plt Count pCO2 pO2 HCO3 ABG pH ABG Total CO2 ABG O2 Saturation ABG O2 Content ABG Base Excess ABG Hemoglobin ABG Carboxyhemoglobin POC ABG HHb (Measured) ABG Methemoglobin ABG O2 Capacity [place] Test A-a O2 Difference Hgb O2 Saturation Vent Mode Mechanical Rate FiO2 Tidal Volume PEEP Sodium 142 Potassium 4.6 Chloride 114 H Carbon Dioxide 21 L Anion Gap 12 BUN 50 H Creatinine 1.6 H Est GFR ( Amer) 52 Est GFR (Non-Af Amer) 43 POC Glucose (mg/dL) 344 H Random Glucose 313 H Calcium 8.0 L Ammonia 123 H D 01/09/19 01/09/19 16:40 20:57 WBC RBC Hgb Hct MCV MCH MCHC RDW Plt Count pCO2 pO2 HCO3 ABG pH ABG Total CO2 ABG O2 Saturation ABG O2 Content ABG Base Excess ABG Hemoglobin ABG Carboxyhemoglobin POC ABG HHb (Measured) ABG Methemoglobin ABG O2 Capacity [place] Test A-a O2 Difference Hgb O2 Saturation Vent Mode Mechanical Rate FiO2 Tidal Volume PEEP Sodium Potassium Chloride Carbon Dioxide Anion Gap BUN Creatinine Est GFR ( Amer) Est GFR (Non-Af Amer) POC Glucose (mg/dL) 323 H 290 H Random Glucose Calcium Ammonia
[2019-01-10 04:08] LABS: ABG ALLEN TEST YES; ARTERIAL BLOOD GAS HCO3 26.3 mmol/L (21-28); ARTERIAL BLOOD GAS HEMOGLOBIN 14.5 g/dL (11.7-17.4); ARTERIAL BLOOD GAS O2 CAPACITY 19.7 mL/dL (16-24); ARTERIAL BLOOD GAS O2 CONTENT 19.5 ML/dL (15-23); ARTERIAL BLOOD GAS PCO2 31 mm/Hg (35-45); ARTERIAL BLOOD GAS PO2 87 mm/Hg (80-100); ARTERIAL BLOOD GAS TCO2 25.2 mmol/L (22-28)
[2019-01-10] MEDS: Insulin Regular 100 units/ml SC SCH ×4 (05:04→22:35)
[2019-01-10 05:29] LABS: HEMOGLOBIN 14.4 g/dL (12.0-18.0); MEAN CORPUSCULAR HEMOGLOBIN 37.7 pg (27.0-31.0); MEAN CORPUSCULAR HGB CONC 34.4 g/dL (33.0-37.0); RBC 3.82 Mil/uL (4.40-5.90); RED CELL DISTRIBUTION WIDTH 18.1 % (11.5-14.5); WHITE BLOOD COUNT 15.5 K/uL (4.8-10.8)
[2019-01-10 05:38] LABS: BLOOD UREA NITROGEN 55 mg/dl (9-20); CALCIUM 8.4 mg/dL (8.4-10.2); GFR NON-AFRICAN AMERICAN > 60
[2019-01-10 05:46] LABS: MEAN CELL VOLUME 109.6 fl (80.0-94.0)
[2019-01-10] MEDS: Levothyroxine 50 MCG TAB PO SCH (06:30)
--- NOTE | 2019-01-10 07:47 | RAD ---
Date of service: 01/10/2019 HISTORY: Mechanically ventilated COMPARISON: Portable chest 01/09/2019 TECHNIQUE: 1 view obtained. FINDINGS: Endotracheal and nasogastric tubes do not appear significantly changed in position at this time. LUNGS: No active pulmonary disease. PLEURA: No significant pleural effusion identified, no pneumothorax apparent. CARDIOVASCULAR: No aortic atherosclerotic calcification present. Normal cardiac size. No pulmonary vascular congestion. OSSEOUS STRUCTURES: No significant abnormalities. VISUALIZED UPPER ABDOMEN: Normal. OTHER FINDINGS: None. IMPRESSION: No acute infiltrate or pleural effusion identified in the interval. Stable endotracheal and nasogastric tubes as per above. No pulmonary vascular congestion appreciated.
[2019-01-10] MEDS: Pantoprazole 40 mg Susp UD NG SCH (08:53)
--- NOTE | 2019-01-10 11:28 | RAD ---
Date of service: 01/09/2019 HISTORY: intubated COMPARISON: Portable chest 01/08/2019. TECHNIQUE: 1 view obtained. FINDINGS: LUNGS: ET tube now identified terminating 3.0 cm above the montserrat. Nasogastric tube again terminates at left upper quadrant abdomen. No acute pulmonary disease appreciated bilaterally. PLEURA: No significant pleural effusion identified, no pneumothorax apparent. CARDIOVASCULAR: No aortic atherosclerotic calcification present. Normal cardiac size. No pulmonary vascular congestion. OSSEOUS STRUCTURES: No significant abnormalities. VISUALIZED UPPER ABDOMEN: Normal. OTHER FINDINGS: None. IMPRESSION: Interval acute cardiopulmonary disease appreciable. Endotracheal tube terminates 3.0 cm above the montserrat in the interval with nasogastric tube unchanged.
--- NOTE | 2019-01-10 13:38 | CP.CCUPN ---
CCU Subjective - Physician Review Subjective (Free Text): Initial exam early AM showed no response to deep pain stimuli. Re-exam 3 hours later revealed eye opening to pain stimulus, and slight to-and-fro head movements, but not following any commands. T max 101.1F last 24H. Temps mostly 99-100; SBPs 130s, HR 100s. Approx 1.1 liter positive fluid balance. Breathing 25 with Ve= 8.9 on AC 10, and 30% oxygen with SPO2 100%. ROS: No other pertinent negs or positive on 10+ system review obtainable due to lethargic status Other PMSFH: All other Nursing and physician documentation reviewed to date; no new pertinent info noted relevant to current medical problems. EXAM- HEENT: very slight icterus, pupils equal, 3 mm and reactive, no gaze preference, opens eyes spontaneously and briefly to pain, but no sustained wakeful state NECK: no visible JVD, supple, carotids equal upstroke bilat/no bruits CHEST: decreased BS bases, no wheezes audible HEART: regular, distant, tachy S1S2, no murmur audible, no rubs. ABD: soft, no distention, no focal tenderness, BS hypoactive EXT: no edema; no calf tenderness or palpable cords, distal pulses intact and symmetrical NEURO: withdraws to pain stimuli, + tone SKIN: no rashes LABS: WBC= 15.5 HGB= 14.4 PLTs = 62K 7.51/31/87 Na= 145 K= 4.2 Cl= 115 HCO3= 23 BUN/Cr= 55/1.2 BS= 218 CXR: (my interp)- ETT position OK above montserrat; mild increase in R perihilar interstitial changes. IMPRESSION / MAJOR PROBLEMS NOW: 1. Acute hypoxemic Resp Failure, 2 metabolic encephalopathy 2. Hyperammonemia 3. Azotemia / Dehydration, doubt HRS, ATN, NIRAJ 4. Uncontrolled DM II 5. Thrombocytopenia / Mild Coagulopathy 2 liver disease. 6. 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 PLAN: 1. MV support, still lethargic, MV weans if neuromental status improves. Day#5 on MV. 2. Only BM x 1 overnight. Lactulose- increased to 4x daily / Rifaximin: already at max dose. 3. Increase IVF hydration and water via enteral tube feeds. 4. May need insulin drip to control hyperglycemia. Check serum osmo. Discussed with Beater Out regarding ideal formula for enteral nutritional support and to limit regeneration of ammonia.
--- NOTE | 2019-01-10 23:48 | CP.PCM.PN ---
Subjective - Date & Time of Evaluation Date of Evaluation: 01/10/19 Objective - Vital Signs/Intake and Output Vital Signs (last 24 hours): Temp Pulse Resp BP Pulse Ox 98.0 F 90 23 114/63 100 01/10/19 16:00 01/10/19 22:00 01/10/19 18:00 01/10/19 22:00 01/10/19 18:00 Intake and Output: 01/10/19 01/11/19 18:59 06:59 Intake Total 1482 Output Total 600 Balance 882 - Medications Medications: Current Medications Carvedilol (Coreg) 6.25 mg NG Q12 [facility] Last Admin: 01/10/19 20:42 Dose: 6.25 mg Cilostazol (Pletal) 50 mg PO Q12 [facility] Last Admin: 01/07/19 10:22 Dose: Not Given Folic Acid (Folic Acid) 1 mg GT DAILY [facility] Last Admin: 01/10/19 15:45 Dose: 1 mg Hydralazine HCl (Apresoline) 10 mg IV Q6 [facility] Last Admin: 01/10/19 22:00 Dose: Not Given Insulin Human Regular (Humulin R) 0 units SC Q6H [facility]; Protocol Last Admin: 01/10/19 22:35 Dose: 2 unit Lactulose (Enulose) 20 gm GT Q6H [facility] Last Admin: 01/10/19 22:35 Dose: 20 gm Levothyroxine Sodium (Synthroid) 50 mcg PO DAILY@0630 [facility] Last Admin: 01/10/19 06:30 Dose: 50 mcg Pantoprazole Sodium (Protonix Susp) 40 mg NG DAILY [facility] Last Admin: 01/10/19 08:53 Dose: 40 mg Rifaximin (Xifaxan) 550 mg NG Q12 [facility]; Protocol Last Admin: 01/10/19 08:54 Dose: 550 mg Thiamine HCl (Vitamin B1 Tab) 100 mg GT DAILY [facility] Last Admin: 01/10/19 15:45 Dose: 100 mg - Labs Labs: 01/10/19 05:17 01/10/19 05:17 PT 15.7 Seconds (9.8-13.1) H 01/05/19 23:56 INR 1.4 01/05/19 23:56 APTT 32.6 Seconds (25.6-37.1) 01/05/19 23:56 Assessment and Plan (1) Alcoholic cirrhosis of liver Status: Acute (2) Hepatic encephalopathy Status: Acute (3) DM type 2 (diabetes mellitus, type 2) Status: Acute (4) Altered mental status Status: Acute (5) Acute respiratory failure Status: Acute
--- NOTE | 2019-01-10 23:48 | CP.PCM.PN ---
Subjective - Date & Time of Evaluation Date of Evaluation: 01/09/19 Objective - Vital Signs/Intake and Output Vital Signs (last 24 hours): Temp Pulse Resp BP Pulse Ox 98.0 F 90 23 114/63 100 01/10/19 16:00 01/10/19 22:00 01/10/19 18:00 01/10/19 22:00 01/10/19 18:00 Intake and Output: 01/10/19 01/11/19 18:59 06:59 Intake Total 1482 Output Total 600 Balance 882 - Medications Medications: Current Medications Carvedilol (Coreg) 6.25 mg NG Q12 [facility] Last Admin: 01/10/19 20:42 Dose: 6.25 mg Cilostazol (Pletal) 50 mg PO Q12 [facility] Last Admin: 01/07/19 10:22 Dose: Not Given Folic Acid (Folic Acid) 1 mg GT DAILY [facility] Last Admin: 01/10/19 15:45 Dose: 1 mg Hydralazine HCl (Apresoline) 10 mg IV Q6 [facility] Last Admin: 01/10/19 22:00 Dose: Not Given Insulin Human Regular (Humulin R) 0 units SC Q6H [facility]; Protocol Last Admin: 01/10/19 22:35 Dose: 2 unit Lactulose (Enulose) 20 gm GT Q6H [facility] Last Admin: 01/10/19 22:35 Dose: 20 gm Levothyroxine Sodium (Synthroid) 50 mcg PO DAILY@0630 [facility] Last Admin: 01/10/19 06:30 Dose: 50 mcg Pantoprazole Sodium (Protonix Susp) 40 mg NG DAILY [facility] Last Admin: 01/10/19 08:53 Dose: 40 mg Rifaximin (Xifaxan) 550 mg NG Q12 [facility]; Protocol Last Admin: 01/10/19 08:54 Dose: 550 mg Thiamine HCl (Vitamin B1 Tab) 100 mg GT DAILY [facility] Last Admin: 01/10/19 15:45 Dose: 100 mg - Labs Labs: 01/10/19 05:17 01/10/19 05:17 PT 15.7 Seconds (9.8-13.1) H 01/05/19 23:56 INR 1.4 01/05/19 23:56 APTT 32.6 Seconds (25.6-37.1) 01/05/19 23:56 Assessment and Plan (1) Alcoholic cirrhosis of liver Status: Acute (2) Hepatic encephalopathy Status: Acute (3) DM type 2 (diabetes mellitus, type 2) Status: Acute (4) Altered mental status Status: Acute (5) Acute respiratory failure Status: Acute
--- NOTE | 2019-01-11 00:32 | CP.PCM.PN ---
Subjective - Date & Time of Evaluation Date of Evaluation: 01/09/19 Time of Evaluation: 19:00 - Subjective Subjective: Vented. Objective - Vital Signs/Intake and Output Vital Signs (last 24 hours): Temp Pulse Resp BP Pulse Ox 98.0 F 90 23 114/63 100 01/10/19 16:00 01/10/19 22:00 01/10/19 18:00 01/10/19 22:00 01/10/19 18:00 Intake and Output: 01/10/19 01/11/19 18:59 06:59 Intake Total 1482 Output Total 600 Balance 882 - Medications Medications: Current Medications Carvedilol (Coreg) 6.25 mg NG Q12 [facility] Last Admin: 01/10/19 20:42 Dose: 6.25 mg Cilostazol (Pletal) 50 mg PO Q12 [facility] Last Admin: 01/07/19 10:22 Dose: Not Given Folic Acid (Folic Acid) 1 mg GT DAILY [facility] Last Admin: 01/10/19 15:45 Dose: 1 mg Hydralazine HCl (Apresoline) 10 mg IV Q6 [facility] Last Admin: 01/10/19 22:00 Dose: Not Given Insulin Human Regular (Humulin R) 0 units SC Q6H [facility]; Protocol Last Admin: 01/10/19 22:35 Dose: 2 unit Lactulose (Enulose) 20 gm GT Q6H [facility] Last Admin: 01/10/19 22:35 Dose: 20 gm Levothyroxine Sodium (Synthroid) 50 mcg PO DAILY@0630 [facility] Last Admin: 01/10/19 06:30 Dose: 50 mcg Pantoprazole Sodium (Protonix Susp) 40 mg NG DAILY [facility] Last Admin: 01/10/19 08:53 Dose: 40 mg Rifaximin (Xifaxan) 550 mg NG Q12 [facility]; Protocol Last Admin: 01/10/19 08:54 Dose: 550 mg Thiamine HCl (Vitamin B1 Tab) 100 mg GT DAILY [facility] Last Admin: 01/10/19 15:45 Dose: 100 mg - Labs Labs: 01/10/19 05:17 01/10/19 05:17 PT 15.7 Seconds (9.8-13.1) H 01/05/19 23:56 INR 1.4 01/05/19 23:56 APTT 32.6 Seconds (25.6-37.1) 01/05/19 23:56 - Head Exam Head Exam: ATRAUMATIC - Eye Exam Eye Exam: Scleral icterus - ENT Exam ENT Exam: Mucous Membranes Dry - Respiratory Exam Respiratory Exam: Decreased Breath Sounds - Cardiovascular Exam Cardiovascular Exam: +S1, +S2 - GI/Abdominal Exam GI & Abdominal Exam: Normal Bowel Sounds Assessment and Plan (1) Thrombocytopenia Assessment & Plan: liver cirrhosis and splenic sequestration Status: Acute (2) Coagulopathy Assessment & Plan: liver disease may have nutritional component vit k and FFP PRN Status: Acute (3) Liver mass Assessment & Plan: ? HCC outpatient f/u with primary glass etcher Status: Acute
--- NOTE | 2019-01-11 00:33 | CP.PCM.PN ---
Subjective - Date & Time of Evaluation Date of Evaluation: 01/10/19 Time of Evaluation: 20:00 - Subjective Subjective: Vented Objective - Vital Signs/Intake and Output Vital Signs (last 24 hours): Temp Pulse Resp BP Pulse Ox 98.0 F 90 23 114/63 100 01/10/19 16:00 01/10/19 22:00 01/10/19 18:00 01/10/19 22:00 01/10/19 18:00 Intake and Output: 01/10/19 01/11/19 18:59 06:59 Intake Total 1482 Output Total 600 Balance 882 - Medications Medications: Current Medications Carvedilol (Coreg) 6.25 mg NG Q12 [facility] Last Admin: 01/10/19 20:42 Dose: 6.25 mg Cilostazol (Pletal) 50 mg PO Q12 [facility] Last Admin: 01/07/19 10:22 Dose: Not Given Folic Acid (Folic Acid) 1 mg GT DAILY [facility] Last Admin: 01/10/19 15:45 Dose: 1 mg Hydralazine HCl (Apresoline) 10 mg IV Q6 [facility] Last Admin: 01/10/19 22:00 Dose: Not Given Insulin Human Regular (Humulin R) 0 units SC Q6H [facility]; Protocol Last Admin: 01/10/19 22:35 Dose: 2 unit Lactulose (Enulose) 20 gm GT Q6H [facility] Last Admin: 01/10/19 22:35 Dose: 20 gm Levothyroxine Sodium (Synthroid) 50 mcg PO DAILY@0630 [facility] Last Admin: 01/10/19 06:30 Dose: 50 mcg Pantoprazole Sodium (Protonix Susp) 40 mg NG DAILY [facility] Last Admin: 01/10/19 08:53 Dose: 40 mg Rifaximin (Xifaxan) 550 mg NG Q12 [facility]; Protocol Last Admin: 01/10/19 08:54 Dose: 550 mg Thiamine HCl (Vitamin B1 Tab) 100 mg GT DAILY [facility] Last Admin: 01/10/19 15:45 Dose: 100 mg - Labs Labs: 01/10/19 05:17 01/10/19 05:17 PT 15.7 Seconds (9.8-13.1) H 01/05/19 23:56 INR 1.4 01/05/19 23:56 APTT 32.6 Seconds (25.6-37.1) 01/05/19 23:56 - Head Exam Head Exam: ATRAUMATIC - Eye Exam Eye Exam: Scleral icterus - ENT Exam ENT Exam: Mucous Membranes Dry - Respiratory Exam Respiratory Exam: Decreased Breath Sounds - Cardiovascular Exam Cardiovascular Exam: +S1, +S2 - GI/Abdominal Exam GI & Abdominal Exam: Normal Bowel Sounds Assessment and Plan (1) Thrombocytopenia Assessment & Plan: liver cirrhosis and splenic sequestration Status: Acute (2) Coagulopathy Assessment & Plan: liver disease may have nutritional component vit k and FFP PRN Status: Acute (3) Liver mass Assessment & Plan: ? HCC outpatient f/u with primary counter server Status: Acute
[2019-01-11] MEDS: Insulin Regular 100 units/ml SC SCH ×4 (04:41→23:04)
[2019-01-11 05:18] LABS: ABG ALLEN TEST YES; ARTERIAL BLOOD GAS HCO3 27.6 mmol/L (21-28); ARTERIAL BLOOD GAS HEMOGLOBIN 13.8 g/dL (11.7-17.4); ARTERIAL BLOOD GAS O2 CAPACITY 18.9 mL/dL (16-24); ARTERIAL BLOOD GAS O2 CONTENT 18.9 ML/dL (15-23); ARTERIAL BLOOD GAS O2 SAT 99.9 % (95-98); ARTERIAL BLOOD GAS PCO2 35 mm/Hg (35-45); ARTERIAL BLOOD GAS PH 7.49 (7.35-7.45); ARTERIAL BLOOD GAS PO2 118 mm/Hg (80-100); ARTERIAL BLOOD GAS TCO2 27.8 mmol/L (22-28)
[2019-01-11 06:00] LABS: BASO % 0.1 % (0.0-2.0); HEMOGLOBIN 13.4 g/dL (12.0-18.0); INR 1.4; LYMPH # 0.7 K/uL (1.0-4.3); LYMPH % 4.7 % (20.0-40.0); MEAN CORPUSCULAR HEMOGLOBIN 37.5 pg (27.0-31.0); MEAN CORPUSCULAR HGB CONC 34.1 g/dL (33.0-37.0); MEAN PLATELET VOLUME 11.1 fl (7.2-11.7); MONO # 1.8 K/uL (0.0-0.8); NEUT # 12.1 K/uL (1.8-7.0); NEUT % 83.2 % (50.0-75.0); NRBC % 0.1 % (0.0-0.0); PLATELET COUNT 61 K/uL (130-400); PROTHROMBIN TIME 16.1 Seconds (9.8-13.1); RBC 3.57 Mil/uL (4.40-5.90); RED CELL DISTRIBUTION WIDTH 18.7 % (11.5-14.5); WHITE BLOOD COUNT 14.6 K/uL (4.8-10.8)
[2019-01-11 06:03] LABS: PARTIAL THROMBOPLASTIN TIME 32.9 Seconds (25.6-37.1)
[2019-01-11 06:31] LABS: ALB/GLOB RATIO 0.6 (1.0-2.1); ALBUMIN 2.3 g/dL (3.5-5.0); ALT/SGPT 68 U/L (21-72); AST/SGOT 68 U/L (17-59); BLOOD UREA NITROGEN 68 mg/dl (9-20); CALCIUM 8.8 mg/dL (8.4-10.2); GFR NON-AFRICAN AMERICAN > 60
--- NOTE | 2019-01-11 08:40 | RAD ---
Date of service: 01/11/2019 HISTORY: Intubated COMPARISON: Portable chest 01/10/2019. TECHNIQUE: 1 view obtained. FINDINGS: LUNGS: Endotracheal and nasogastric tubes are not significantly changed in position. No interval pulmonary disease appreciable. PLEURA: No significant pleural effusion identified, no pneumothorax apparent. CARDIOVASCULAR: No aortic atherosclerotic calcification present. Normal cardiac size. No pulmonary vascular congestion. OSSEOUS STRUCTURES: No significant abnormalities. VISUALIZED UPPER ABDOMEN: Normal. OTHER FINDINGS: None. IMPRESSION: No interval acute cardiopulmonary disease appreciated.
--- NOTE | 2019-01-11 08:59 | CP.CCUPN ---
CCU Subjective - Physician Review Subjective (Free Text): Opens eyes to verbal stimuli and withdraws extremities to pain, but not otherwise interactive nor following simple commands. T max 100.0F last 24H. Temps mostly 99; SBPs 130s, HR 90s. Approx 1.4 liter positive fluid balance. Breathing 20 with Ve= 8.3 on AC 10, and 30% oxygen with SPO2 100%. ROS: No other pertinent negs or positive on 10+ system review obtainable due to lethargic status Other PMSFH: All other Nursing and physician documentation reviewed to date; no new pertinent info noted relevant to current medical problems. EXAM- HEENT: very slight icterus, pupils equal, 3 mm and reactive, no gaze preference, opens eyes spontaneously and briefly to pain, but no sustained wakeful state NECK: no visible JVD, supple, carotids equal upstroke bilat/no bruits CHEST: decreased BS bases, no wheezes audible HEART: regular, distant, tachy S1S2, no murmur audible, no rubs. ABD: soft, no distention, no focal tenderness, BS hypoactive EXT: no edema; no calf tenderness or palpable cords, distal pulses intact and symmetrical NEURO: withdraws to pain stimuli, + tone SKIN: no rashes LABS: WBC= 14.6 HGB= 13.4 PLTs = 61K 7.49/35/118 Na= 143 K= 4.4 Cl= 113 HCO3= 25 BUN/Cr= 68/1.2 BS= 282 Ammonia 157 CXR: (my interp)- ETT position OK above montserrat; no worsening, no new consolidation. IMPRESSION / MAJOR PROBLEMS NOW: 1. Acute hypoxemic Resp Failure, 2 metabolic encephalopathy 2. Hyperammonemia 3. Azotemia / Dehydration, doubt HRS, ATN, NIRAJ 4. Uncontrolled DM II 5. Thrombocytopenia / Mild Coagulopathy 2 liver disease. 6. 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 PLAN: 1. MV support, still lethargic, MV weans as neuromental status improves. Day#6 on MV. 2. Lactulose- increased to 4x daily / Rifaximin: already at max dose. 3. Increase IVF hydration and water via enteral tube feeds. 4. May need insulin drip to control hyperglycemia. Check serum osmo. Discussed with Full Service Supervisor regarding ideal formula for enteral nutritional support and to limit regeneration of ammonia.
[2019-01-11] MEDS: Pantoprazole 40 mg Susp UD NG SCH (09:58)
[2019-01-11] MEDS: Levothyroxine 50 MCG TAB PO SCH (09:58)
[2019-01-11 10:14] LABS: BANDS 1 % (0-2); BASOPHIL 1 % (0-2); LYMPHOCYTE 5 % (20-50); MONOCYTE 10 % (0-10); NEUTROPHIL 83 % (42-75); TOTAL CELLS COUNTED 100
[2019-01-11 10:16] LABS: ANISOCYTOSIS SLIGHT; OVALOCYTES SLIGHT; PLATELET ESTIMATE MARKEDLY DECREASED (NORMAL)
--- NOTE | 2019-01-11 18:58 | CP.PCM.PN ---
Subjective - Date & Time of Evaluation Date of Evaluation: 01/11/19 Objective - Vital Signs/Intake and Output Vital Signs (last 24 hours): Temp Pulse Resp BP Pulse Ox 100.3 F H 91 H 22 126/61 100 01/11/19 16:00 01/11/19 18:00 01/11/19 18:00 01/11/19 18:00 01/11/19 18:00 Intake and Output: 01/11/19 01/11/19 06:59 18:59 Intake Total 1244 1220 Output Total 650 600 Balance 594 620 - Medications Medications: Current Medications Carvedilol (Coreg) 6.25 mg NG Q12 [facility] Last Admin: 01/11/19 09:59 Dose: 6.25 mg Cilostazol (Pletal) 50 mg PO Q12 [facility] Last Admin: 01/07/19 10:22 Dose: Not Given Folic Acid (Folic Acid) 1 mg GT DAILY [facility] Last Admin: 01/11/19 09:58 Dose: 1 mg Hydralazine HCl (Apresoline) 10 mg IV Q6 [facility] Last Admin: 01/11/19 16:57 Dose: 10 mg Insulin Human Regular (Humulin R) 0 units SC Q6H [facility]; Protocol Last Admin: 01/11/19 17:39 Dose: 5 unit Lactulose (Enulose) 20 gm GT Q6H [facility] Last Admin: 01/11/19 16:58 Dose: 20 gm Levothyroxine Sodium (Synthroid) 50 mcg PO DAILY@0630 [facility] Last Admin: 01/11/19 09:58 Dose: 50 mcg Pantoprazole Sodium (Protonix Susp) 40 mg NG DAILY [facility] Last Admin: 01/11/19 09:58 Dose: 40 mg Rifaximin (Xifaxan) 550 mg PO BID [facility]; Protocol Last Admin: 01/11/19 17:01 Dose: 550 mg Thiamine HCl (Vitamin B1 Tab) 100 mg GT DAILY [facility] Last Admin: 01/11/19 09:58 Dose: 100 mg - Labs Labs: 01/11/19 05:33 01/11/19 05:33 PT 16.1 Seconds (9.8-13.1) H 01/11/19 05:33 INR 1.4 01/11/19 05:33 APTT 32.9 Seconds (25.6-37.1) 01/11/19 05:33 Assessment and Plan (1) Alcoholic cirrhosis of liver Status: Acute (2) Hepatic encephalopathy Status: Acute (3) DM type 2 (diabetes mellitus, type 2) Status: Acute (4) Altered mental status Status: Acute (5) Acute respiratory failure Status: Acute
[2019-01-12] MEDS: Insulin Regular 100 units/ml SC SCH ×4 (04:37→23:29)
[2019-01-12 05:00] LABS: ABG ALLEN TEST YES; ARTERIAL BLOOD GAS HCO3 26.4 mmol/L (21-28); ARTERIAL BLOOD GAS HEMOGLOBIN 12.7 g/dL (11.7-17.4); ARTERIAL BLOOD GAS O2 CAPACITY 17.5 mL/dL (16-24); ARTERIAL BLOOD GAS O2 CONTENT 17.5 ML/dL (15-23); ARTERIAL BLOOD GAS O2 SAT 100.1 % (95-98); ARTERIAL BLOOD GAS PCO2 36 mm/Hg (35-45); ARTERIAL BLOOD GAS PH 7.46 (7.35-7.45); ARTERIAL BLOOD GAS PO2 119 mm/Hg (80-100); ARTERIAL BLOOD GAS TCO2 26.7 mmol/L (22-28)
[2019-01-12 05:16] LABS: HEMOGLOBIN 12.7 g/dL (12.0-18.0); MEAN CELL VOLUME 111.9 fl (80.0-94.0); MEAN CORPUSCULAR HEMOGLOBIN 38.5 pg (27.0-31.0); MEAN CORPUSCULAR HGB CONC 34.4 g/dL (33.0-37.0); RBC 3.31 Mil/uL (4.40-5.90); RED CELL DISTRIBUTION WIDTH 18.2 % (11.5-14.5); WHITE BLOOD COUNT 11.8 K/uL (4.8-10.8)
[2019-01-12] MEDS: Levothyroxine 50 MCG TAB PO SCH (05:31)
[2019-01-12 05:33] LABS: BLOOD UREA NITROGEN 83 mg/dl (9-20); GFR NON-AFRICAN AMERICAN 55
--- NOTE | 2019-01-12 09:34 | CP.CCUPN ---
CCU Subjective - Physician Review Subjective (Free Text): More spontaneous movements of all extremities today, partially spontaneously opens eyes but not otherwise interactive nor following simple commands. No additional BMs with soap suds enema. T max 100.0F last 24H. Temps mostly 99; SBPs 130s, HR 90s. Approx 1.1 liter positive fluid balance. Breathing 20 with Ve= 8.3 on AC 10, and 30% oxygen with SPO2 100%. Tolerated brief SBT on low level CPAP PS. ROS: No other pertinent negs or positive on 10+ system review obtainable due to lethargic status Other PMSFH: All other Nursing and physician documentation reviewed to date; no new pertinent info noted relevant to current medical problems. EXAM- HEENT: very slight icterus, pupils equal, 3 mm and reactive, no gaze preference, opens eyes spontaneously and briefly to pain, but no sustained wakeful state NECK: no visible JVD, supple, carotids equal upstroke bilat/no bruits CHEST: decreased BS bases, no wheezes audible HEART: regular, distant, tachy S1S2, no murmur audible, no rubs. ABD: soft, no distention, no focal tenderness, BS hypoactive EXT: no edema; no calf tenderness or palpable cords, distal pulses intact and symmetrical NEURO: withdraws to pain stimuli, + tone SKIN: no rashes LABS: WBC= 11.8 HGB= 12.7 PLTs = 51K 7.46/36/119 Na= 140 K= 4.7 Cl= 110 HCO3= 26 BUN/Cr= 83/1.3 BS= 365 CXR: (my interp)- ETT position OK above montserrat; no worsening, no new consolidation. IMPRESSION / MAJOR PROBLEMS NOW: 1. Acute hypoxemic Resp Failure, 2 metabolic encephalopathy 2. Hyperammonemia 3. Azotemia / Dehydration, doubt HRS, ATN, NIRAJ 4. Uncontrolled DM II 5. Thrombocytopenia / Mild Coagulopathy 2 liver disease. 6. 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 PLAN: 1. Increase IVF hydration. May help to improve BMs. 2. Awaiting further wakefulness prior to extubation. 3. Platelets remain low, but Hgb stable. 4. Add Lantus insulin.
[2019-01-12] MEDS: Pantoprazole 40 mg Susp UD NG SCH (09:35)
[2019-01-12] MEDS: Sodium Chloride 0.45% 1,000 ML IV SCH ×2 (10:03→20:00)
[2019-01-12] MEDS: Insulin Detemir 100 Units/ml Inj SC SCH (11:38)
--- NOTE | 2019-01-12 14:32 | RAD ---
Date of service: 01/12/2019 HISTORY: Intubated COMPARISON: None available. Comparison chest 01/11/2019. TECHNIQUE: 1 view obtained. FINDINGS: In situ ETT, tip of which lies approximately 2.8 cm above montserrat. NGT is present, the distal aspect of which is coiled upon itself with tip oriented superiorly near the fundus region. LUNGS: Poor inspiration with low lung volumes common crowded bronchovascular markings and mild bibasilar atelectasis. PLEURA: No significant pleural effusion identified, no pneumothorax apparent. CARDIOVASCULAR: No aortic atherosclerotic calcification present. Heart appears mildly enlarged. OSSEOUS STRUCTURES: No significant abnormalities. VISUALIZED UPPER ABDOMEN: Normal. OTHER FINDINGS: None. IMPRESSION: ETT and NGT as above. Poor inspiration with low lung volumes common crowded bronchovascular markings and mild bibasilar atelectasis.
[2019-01-13] MEDS: Insulin Regular 100 units/ml SC SCH ×4 (04:30→23:00)
[2019-01-13 04:45] LABS: ABG ALLEN TEST YES; ARTERIAL BLOOD GAS HCO3 27.8 mmol/L (21-28); ARTERIAL BLOOD GAS HEMOGLOBIN 12.1 g/dL (11.7-17.4); ARTERIAL BLOOD GAS O2 CAPACITY 16.6 mL/dL (16-24); ARTERIAL BLOOD GAS O2 CONTENT 16.6 ML/dL (15-23); ARTERIAL BLOOD GAS O2 SAT 99.8 % (95-98); ARTERIAL BLOOD GAS PCO2 39 mm/Hg (35-45); ARTERIAL BLOOD GAS PH 7.46 (7.35-7.45); ARTERIAL BLOOD GAS PO2 117 mm/Hg (80-100); ARTERIAL BLOOD GAS TCO2 28.9 mmol/L (22-28)
[2019-01-13 05:24] LABS: BASO % 0.4 % (0.0-2.0); EOS # 0.1 K/uL (0.0-0.7); EOS % 0.7 % (0.0-4.0); HEMOGLOBIN 12.2 g/dL (12.0-18.0); LYMPH # 0.5 K/uL (1.0-4.3); LYMPH % 5.5 % (20.0-40.0); MEAN CELL VOLUME 111.6 fl (80.0-94.0); MEAN CORPUSCULAR HEMOGLOBIN 38.4 pg (27.0-31.0); MEAN CORPUSCULAR HGB CONC 34.4 g/dL (33.0-37.0); MEAN PLATELET VOLUME 11.3 fl (7.2-11.7); MONO # 1.4 K/uL (0.0-0.8); MONO % 14.9 % (0.0-10.0); NEUT # 7.5 K/uL (1.8-7.0); NEUT % 78.5 % (50.0-75.0); NRBC % 0.1 % (0.0-0.0); RBC 3.18 Mil/uL (4.40-5.90); RED CELL DISTRIBUTION WIDTH 17.7 % (11.5-14.5); WHITE BLOOD COUNT 9.6 K/uL (4.8-10.8)
[2019-01-13 05:42] LABS: ALB/GLOB RATIO 0.6 (1.0-2.1); ALBUMIN 2.1 g/dL (3.5-5.0); ALT/SGPT 57 U/L (21-72); AST/SGOT 61 U/L (17-59); BLOOD UREA NITROGEN 83 mg/dl (9-20); CALCIUM 8.8 mg/dL (8.4-10.2); GFR NON-AFRICAN AMERICAN > 60
[2019-01-13] MEDS: Sodium Chloride 0.45% 1,000 ML IV SCH ×2 (06:00→17:17)
[2019-01-13] MEDS: Levothyroxine 50 MCG TAB PO SCH (06:21)
[2019-01-13] MEDS: Insulin Detemir 100 Units/ml Inj SC SCH (09:01)
[2019-01-13] MEDS: Pantoprazole 40 mg Susp UD NG SCH (09:02)
--- NOTE | 2019-01-13 09:07 | CP.CCUPN ---
CCU Subjective - Physician Review Subjective (Free Text): Intermittent spontaneous movements of all extremities today, partially spontaneously opens eyes but not otherwise interactive nor following simple commands. No additional BMs beyond once per 24H despite Lactulose and Rifaximin, no effect with enemas. Temps mostly 98-99; SBPs 130s, HR 90s. Approx 3.5 liter positive fluid balance. Breathing 22 with Ve= 8.7 on AC 10, and 30% oxygen with SPO2 100%. Tolerates brief SBT on low level CPAP PS. ROS: No other pertinent negs or positive on 10+ system review obtainable due to lethargic status Other PMSFH: All other Nursing and physician documentation reviewed to date; no new pertinent info noted relevant to current medical problems. EXAM- HEENT: very slight icterus, pupils equal, 3 mm and reactive, no gaze preference, opens eyes spontaneously and briefly to pain, but no sustained wakeful state NECK: no visible JVD, supple, carotids equal upstroke bilat/no bruits CHEST: decreased BS bases, no wheezes audible HEART: regular, distant, tachy S1S2, no murmur audible, no rubs. ABD: soft, no distention, no focal tenderness, BS hypoactive EXT: no edema; no calf tenderness or palpable cords, distal pulses intact and symmetrical NEURO: withdraws to pain stimuli, + tone SKIN: no rashes LABS: WBC= 9.6 HGB= 13.2 PLTs = 48K 7.46/39/117 Na= 137 K= 4.7 Cl= 108 HCO3= 26 BUN/Cr= 83/1.2 BS= 320 Lactate = 1.6 Ammonia = 183 CXR: (my interp)- ETT position OK above montserrat; no worsening, no new con solidation. IMPRESSION / MAJOR PROBLEMS NOW: 1. Acute hypoxemic Resp Failure, 2 metabolic encephalopathy 2. Hyperammonemia 3. Azotemia / Dehydration, doubt HRS, ATN, NIRAJ 4. Uncontrolled DM II 5. Thrombocytopenia / Mild Coagulopathy 2 liver disease. 6. 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 PLAN: 1. Additional enemas as tolerated, on continuous tube feeds. 2. Awaiting further wakefulness prior to extubation. 3. Platelets remain low, but Hgb stable. 4. Added and will increase Lantus insulin.
[2019-01-13] MEDS ORDERED: Insulin Detemir 100 Units/ml Inj SC ONE (09:15)
--- NOTE | 2019-01-13 13:17 | RAD ---
Date of service: 01/13/2019 HISTORY: Pt intubated COMPARISON: Comparison made with prior chest radiograph dated 01/12/2019 TECHNIQUE: 1 view obtained. FINDINGS: In situ ETT, tip of which lies approximately 2.75 cm above montserrat. NGT is present, the distal aspect of which is coiled upon itself with tip oriented superiorly in the region the fundus of the stomach. LUNGS: Mild left bibasilar atelectasis. PLEURA: No significant pleural effusion identified, no pneumothorax apparent. CARDIOVASCULAR: No aortic atherosclerotic calcification present. Heart size unchanged. No pulmonary vascular congestion. OSSEOUS STRUCTURES: No significant abnormalities. VISUALIZED UPPER ABDOMEN: Normal. OTHER FINDINGS: None. IMPRESSION: ETT and NGT as above. Mild bibasilar atelectasis.
--- NOTE | 2019-01-13 20:30 | CP.PCM.PN ---
Subjective - Date & Time of Evaluation Date of Evaluation: 01/11/19 Time of Evaluation: 12:00 - Subjective Subjective: Vented Objective - Vital Signs/Intake and Output Vital Signs (last 24 hours): Temp Pulse Resp BP Pulse Ox 98.6 F 86 24 122/55 L 100 01/13/19 19:00 01/13/19 19:00 01/13/19 19:00 01/13/19 19:00 01/13/19 19:00 Intake and Output: 01/13/19 01/14/19 18:59 06:59 Intake Total 2520 620 Balance 2520 620 - Medications Medications: Current Medications Carvedilol (Coreg) 6.25 mg NG Q12 [facility] Last Admin: 01/13/19 09:00 Dose: 6.25 mg Cilostazol (Pletal) 50 mg PO Q12 [facility] Last Admin: 01/07/19 10:22 Dose: Not Given Folic Acid (Folic Acid) 1 mg GT DAILY [facility] Last Admin: 01/13/19 09:01 Dose: 1 mg Hydralazine HCl (Apresoline) 25 mg PO TID [facility] Last Admin: 01/13/19 17:16 Dose: 25 mg Sodium Chloride (Sodium Chloride 0.45%) 1,000 mls @ 100 mls/hr IV .Q10H [facility] Stop: 01/14/19 09:46 Last Admin: 01/13/19 17:17 Dose: 100 mls/hr Insulin Detemir (Levemir) 15 units SC DAILY [facility] Insulin Human Regular (Humulin R) 0 units SC Q6H [facility]; Protocol Last Admin: 01/13/19 17:18 Dose: 3 unit Lactulose (Enulose) 20 gm GT Q4H [facility] Last Admin: 01/13/19 17:37 Dose: 20 gm Levothyroxine Sodium (Synthroid) 50 mcg PO DAILY@0630 [facility] Last Admin: 01/13/19 06:21 Dose: 50 mcg Pantoprazole Sodium (Protonix Susp) 40 mg NG DAILY [facility] Last Admin: 01/13/19 09:02 Dose: 40 mg Rifaximin (Xifaxan) 550 mg PO BID [facility]; Protocol Last Admin: 01/13/19 17:17 Dose: 550 mg Thiamine HCl (Vitamin B1 Tab) 100 mg GT DAILY [facility] Last Admin: 01/13/19 09:02 Dose: 100 mg - Labs Labs: 01/13/19 04:31 01/13/19 04:31 PT 16.1 Seconds (9.8-13.1) H 01/11/19 05:33 INR 1.4 01/11/19 05:33 APTT 32.9 Seconds (25.6-37.1) 01/11/19 05:33 - Head Exam Head Exam: ATRAUMATIC - Eye Exam Eye Exam: Normal appearance - ENT Exam ENT Exam: Mucous Membranes Dry - Respiratory Exam Respiratory Exam: NORMAL BREATHING PATTERN - Cardiovascular Exam Cardiovascular Exam: +S1, +S2 - GI/Abdominal Exam GI & Abdominal Exam: Normal Bowel Sounds Assessment and Plan (1) Thrombocytopenia Assessment & Plan: liver cirrhosis and splenic sequestration Status: Acute (2) Coagulopathy Assessment & Plan: liver disease nutritional component vit k and FFP PRN Status: Acute (3) Liver mass Assessment & Plan: ? HCC outpatient f/u with primary travel registered nurse nicu Status: Acute
--- NOTE | 2019-01-13 20:31 | CP.PCM.PN ---
Subjective - Date & Time of Evaluation Date of Evaluation: 01/12/19 Time of Evaluation: 12:00 - Subjective Subjective: Vented Objective - Vital Signs/Intake and Output Vital Signs (last 24 hours): Temp Pulse Resp BP Pulse Ox 98.6 F 86 24 122/55 L 100 01/13/19 19:00 01/13/19 19:00 01/13/19 19:00 01/13/19 19:00 01/13/19 19:00 Intake and Output: 01/13/19 01/14/19 18:59 06:59 Intake Total 2520 620 Balance 2520 620 - Medications Medications: Current Medications Carvedilol (Coreg) 6.25 mg NG Q12 [facility] Last Admin: 01/13/19 09:00 Dose: 6.25 mg Cilostazol (Pletal) 50 mg PO Q12 [facility] Last Admin: 01/07/19 10:22 Dose: Not Given Folic Acid (Folic Acid) 1 mg GT DAILY [facility] Last Admin: 01/13/19 09:01 Dose: 1 mg Hydralazine HCl (Apresoline) 25 mg PO TID [facility] Last Admin: 01/13/19 17:16 Dose: 25 mg Sodium Chloride (Sodium Chloride 0.45%) 1,000 mls @ 100 mls/hr IV .Q10H [facility] Stop: 01/14/19 09:46 Last Admin: 01/13/19 17:17 Dose: 100 mls/hr Insulin Detemir (Levemir) 15 units SC DAILY [facility] Insulin Human Regular (Humulin R) 0 units SC Q6H [facility]; Protocol Last Admin: 01/13/19 17:18 Dose: 3 unit Lactulose (Enulose) 20 gm GT Q4H [facility] Last Admin: 01/13/19 17:37 Dose: 20 gm Levothyroxine Sodium (Synthroid) 50 mcg PO DAILY@0630 [facility] Last Admin: 01/13/19 06:21 Dose: 50 mcg Pantoprazole Sodium (Protonix Susp) 40 mg NG DAILY [facility] Last Admin: 01/13/19 09:02 Dose: 40 mg Rifaximin (Xifaxan) 550 mg PO BID [facility]; Protocol Last Admin: 01/13/19 17:17 Dose: 550 mg Thiamine HCl (Vitamin B1 Tab) 100 mg GT DAILY [facility] Last Admin: 01/13/19 09:02 Dose: 100 mg - Labs Labs: 01/13/19 04:31 01/13/19 04:31 PT 16.1 Seconds (9.8-13.1) H 01/11/19 05:33 INR 1.4 01/11/19 05:33 APTT 32.9 Seconds (25.6-37.1) 01/11/19 05:33 - Head Exam Head Exam: ATRAUMATIC - Eye Exam Eye Exam: Normal appearance - ENT Exam ENT Exam: Mucous Membranes Dry - Respiratory Exam Respiratory Exam: NORMAL BREATHING PATTERN - Cardiovascular Exam Cardiovascular Exam: +S1, +S2 - GI/Abdominal Exam GI & Abdominal Exam: Normal Bowel Sounds Assessment and Plan (1) Thrombocytopenia Assessment & Plan: liver cirrhosis and splenic sequestration Status: Acute (2) Coagulopathy Assessment & Plan: liver disease may have nutritional component vit k and FFP PRN Status: Acute (3) Liver mass Assessment & Plan: ? HCC outpatient f/u with primary can patcher Status: Acute
--- NOTE | 2019-01-13 20:32 | CP.PCM.PN ---
Subjective - Date & Time of Evaluation Date of Evaluation: 01/13/19 Time of Evaluation: 15:00 - Subjective Subjective: Vented Objective - Vital Signs/Intake and Output Vital Signs (last 24 hours): Temp Pulse Resp BP Pulse Ox 98.6 F 86 24 122/55 L 100 01/13/19 19:00 01/13/19 19:00 01/13/19 19:00 01/13/19 19:00 01/13/19 19:00 Intake and Output: 01/13/19 01/14/19 18:59 06:59 Intake Total 2520 620 Balance 2520 620 - Medications Medications: Current Medications Carvedilol (Coreg) 6.25 mg NG Q12 [facility] Last Admin: 01/13/19 09:00 Dose: 6.25 mg Cilostazol (Pletal) 50 mg PO Q12 [facility] Last Admin: 01/07/19 10:22 Dose: Not Given Folic Acid (Folic Acid) 1 mg GT DAILY [facility] Last Admin: 01/13/19 09:01 Dose: 1 mg Hydralazine HCl (Apresoline) 25 mg PO TID [facility] Last Admin: 01/13/19 17:16 Dose: 25 mg Sodium Chloride (Sodium Chloride 0.45%) 1,000 mls @ 100 mls/hr IV .Q10H [facility] Stop: 01/14/19 09:46 Last Admin: 01/13/19 17:17 Dose: 100 mls/hr Insulin Detemir (Levemir) 15 units SC DAILY [facility] Insulin Human Regular (Humulin R) 0 units SC Q6H [facility]; Protocol Last Admin: 01/13/19 17:18 Dose: 3 unit Lactulose (Enulose) 20 gm GT Q4H [facility] Last Admin: 01/13/19 17:37 Dose: 20 gm Levothyroxine Sodium (Synthroid) 50 mcg PO DAILY@0630 [facility] Last Admin: 01/13/19 06:21 Dose: 50 mcg Pantoprazole Sodium (Protonix Susp) 40 mg NG DAILY [facility] Last Admin: 01/13/19 09:02 Dose: 40 mg Rifaximin (Xifaxan) 550 mg PO BID [facility]; Protocol Last Admin: 01/13/19 17:17 Dose: 550 mg Thiamine HCl (Vitamin B1 Tab) 100 mg GT DAILY [facility] Last Admin: 01/13/19 09:02 Dose: 100 mg - Labs Labs: 01/13/19 04:31 01/13/19 04:31 PT 16.1 Seconds (9.8-13.1) H 01/11/19 05:33 INR 1.4 01/11/19 05:33 APTT 32.9 Seconds (25.6-37.1) 01/11/19 05:33 - Head Exam Head Exam: ATRAUMATIC - Eye Exam Eye Exam: Normal appearance - ENT Exam ENT Exam: Mucous Membranes Dry - Respiratory Exam Respiratory Exam: NORMAL BREATHING PATTERN - Cardiovascular Exam Cardiovascular Exam: +S1, +S2 - GI/Abdominal Exam GI & Abdominal Exam: Normal Bowel Sounds Assessment and Plan (1) Thrombocytopenia Assessment & Plan: liver cirrhosis and splenic sequestration Status: Acute (2) Coagulopathy Assessment & Plan: liver disease nutritional component vit k and FFP PRN Status: Acute (3) Liver mass Assessment & Plan: ? HCC outpatient f/u with primary s iron worker Status: Acute
[2019-01-14] MEDS: Sodium Chloride 0.45% 1,000 ML IV SCH (01:28)
[2019-01-14 05:33] LABS: HEMOGLOBIN 11.7 g/dL (12.0-18.0); MEAN CELL VOLUME 111.5 fl (80.0-94.0); MEAN CORPUSCULAR HEMOGLOBIN 38.2 pg (27.0-31.0); MEAN CORPUSCULAR HGB CONC 34.3 g/dL (33.0-37.0); RBC 3.06 Mil/uL (4.40-5.90); RED CELL DISTRIBUTION WIDTH 17.9 % (11.5-14.5); WHITE BLOOD COUNT 7.9 K/uL (4.8-10.8)
[2019-01-14 05:36] LABS: ABG ALLEN TEST YES; ARTERIAL BLOOD GAS HEMOGLOBIN 12.1 g/dL (11.7-17.4); ARTERIAL BLOOD GAS O2 CAPACITY 16.5 mL/dL (16-24); ARTERIAL BLOOD GAS O2 CONTENT 16.2 ML/dL (15-23); ARTERIAL BLOOD GAS O2 SAT 98.3 % (95-98); ARTERIAL BLOOD GAS PCO2 32 mm/Hg (35-45); ARTERIAL BLOOD GAS PH 7.49 (7.35-7.45); ARTERIAL BLOOD GAS PO2 82 mm/Hg (80-100); ARTERIAL BLOOD GAS TCO2 25.4 mmol/L (22-28)
[2019-01-14 05:47] LABS: CALCIUM 8.4 mg/dL (8.4-10.2)
[2019-01-14] MEDS: Insulin Regular 100 units/ml SC SCH ×4 (06:26→23:45)
[2019-01-14] MEDS: Levothyroxine 50 MCG TAB PO SCH (06:38)
--- NOTE | 2019-01-14 07:58 | CP.CCUPN ---
CCU Subjective - Physician Review Subjective (Free Text): 01/14/19 18:43 The patient was Seen and examined by me at the bedside during ICU round, Medical records reviewed and Management issues were discussed and formulated with the house staff. Events reviewed Patient is 68 years old male with past medical history of Diabetes, Gastritis, HTN, Hypercholesterolemia, Chronic Kidney Disease, liver cirrhosis, hepatic encephalopathy and liver malignancy Who was brought in to the emergency room by the family for evaluation of altered mental status, confusion and abdominal pain Patient was transferred to the intensive care unit the following morning for his worsening of his mental status in the setting of markedly elevated ammonia level up to 367 also overnight he received Ativan for agitation, patient was anxious getting out of bed and unsteady on his feet so Ativan was given Patient was found to be agonal breathing shallow respiration minimal response to pain, [place] Was ordered but he was urgently intubated and mechanically ventilated Patient currently off sedation for several days last dose was on the 27th midnight 2 mg of Versed Minimal improvement of the mental status only withdraw to pain Afebrile, NSR on the monitor Last 24H I&O 5340/ I had a family meeting today with several family meetings including the , we went over diagnosis treatment plan and alternative, the family was given the chance to ask patient which was answered to their satisfaction, family is requesting to give no sedation under any circumstances because they feel this was will further alter his mental status and will result in delay in extubation, we discussed pros and cons of sedation and analgesia Critical Care Time Spent (in minutes): 40 CCU Objective - Vital Signs / Intake & Output Vital Signs (Last 4 hours): Vital Signs Pulse Resp BP Pulse Ox 01/14/19 07:00 69 22 105/50 L 100 01/14/19 05:00 71 23 105/50 L 100 Intake and Output (Last 8hrs): Intake & Output 01/13/19 01/14/19 01/14/19 22:59 06:59 14:59 Intake Total 0 1880 Output Total 1 Balance 1878 1880 Weight 205 lb Intake: IV 800 800 Tube Feeding 480 480 Free Water Flush 600 600 Output: Urine/Stool Mix 1 Other: # Bowel Movements 1 1 - Physical Exam Head: Positive for: Atraumatic, Normocephalic Pupils: Positive for: PERRL Extroacular Muscles: Positive for: EOMI Conjunctiva: Positive for: Icteric Ears: Positive for: Normal Mouth: Positive for: Moist Mucous Membranes Nose (External): Positive for: Atraumatic Respiratory/Chest: Positive for: Clear to Auscultation, Good Air Exchange Cardiovascular: Positive for: Regular Rate and Rhythm Abdomen: Positive for: Normal Bowel Sounds. Negative for: Tenderness, Distention Upper Extremity: Positive for: Normal Inspection Lower Extremity: Positive for: Normal Inspection Psychiatric: Negative for: Alert - Medications Active Medications: Active Medications Generic Name Dose Route Start Last Admin Trade Name Freq PRN Reason Stop Dose Admin Carvedilol 6.25 mg 01/06/19 21:00 01/13/19 20:40 Coreg NG Not Given Q12 JOANNA Cilostazol 50 mg 01/06/19 10:30 01/07/19 10:22 Pletal PO Not Given Q12 JOANNA Folic Acid 1 mg 01/10/19 09:00 01/13/19 09:01 Folic Acid GT 1 mg DAILY JOANNA Administration Hydralazine HCl 25 mg 01/12/19 13:00 01/13/19 17:16 Apresoline PO 25 mg TID JOANNA Administration Sodium Chloride 1,000 mls @ 100 mls/hr 01/12/19 09:45 01/14/19 01:28 Sodium Chloride 0.45% IV 01/14/19 09:46 100 mls/hr .Q10H JOANNA Administration Insulin Detemir 15 units 01/14/19 09:00 Levemir SC DAILY [facility] Insulin Human Regular 0 units 01/06/19 11:30 01/14/19 06:26 Humulin R SC 3 unit Q6H [facility] Administration Protocol Lactulose 20 gm 01/13/19 06:15 01/14/19 06:37 Enulose GT 20 gm Q4H JOANNA Administration Levothyroxine Sodium 50 mcg 01/09/19 06:30 01/14/19 06:38 Synthroid PO 50 mcg DAILY@0630 JOANNA Administration Pantoprazole Sodium 40 mg 01/07/19 13:15 01/13/19 09:02 Protonix Susp NG 40 mg DAILY JO[facility] Administration Rifaximin 550 mg 01/11/19 17:00 01/13/19 17:17 Xifaxan PO 550 mg BID JOANNA Administration Protocol Thiamine HCl 100 mg 01/10/19 09:00 01/13/19 09:02 Vitamin B1 Tab GT 100 mg DAILY JOANNA Administration - Patient Studies Lab Studies: Microbiology Studies 01/10/19 21:25 Gram Stain - Preliminary Trachasp Sputum Culture - Final Klebsiella Oxytoca Pseudomonas Aeruginosa Lab Studies 01/14/19 01/14/19 01/14/19 Range/Units 06:24 05:10 05:00 WBC 7.9 (4.8-10.8) K/uL RBC 3.06 L (4.40-5.90) Mil/uL Hgb 11.7 L (12.0-18.0) g/dL Hct 34.1 L (35.0-51.0) % MCV 111.5 H (80.0-94.0) fl MCH 38.2 H (27.0-31.0) pg MCHC 34.3 (33.0-37.0) g/dL RDW 17.9 H (11.5-14.5) % Plt Count 49 L (130-400) K/uL pCO2 (35-45) mm/Hg pO2 (80-100) mm/Hg HCO3 (21-28) mmol/L ABG pH (7.35-7.45) ABG Total CO2 (22-28) mmol/L ABG O2 Saturation (95-98) % ABG O2 Content (15-23) ML/dL ABG Base Excess (-2.0-3.0) mmol/L ABG Hemoglobin (11.7-17.4) g/dL ABG Carboxyhemoglobin (0.5-1.5) % POC ABG HHb (Measured) (0.0-5.0) % ABG Methemoglobin (0.0-3.0) % ABG O2 Capacity (16-24) mL/dL Lup[place] Test A-a O2 Difference mm/Hg Hgb O2 Saturation (95.0-98.0) % Vent Mode Mechanical Rate FiO2 % Tidal Volume PEEP Sodium 133 (132-148) mmol/l Potassium 5.0 (3.6-5.0) MMOL/L Chloride 104 (98-107) mmol/L Carbon Dioxide 23 (22-30) mmol/L Anion Gap 11 (10-20) BUN 94 H (9-20) mg/dl Creatinine 1.5 (0.8-1.5) mg/dl Est GFR ( Amer) 56 Est GFR (Non-Af Amer) 46 POC Glucose (mg/dL) 267 H (65-110) mg/dL Random Glucose 300 H (75-110) mg/dL Calcium 8.4 (8.4-10.2) mg/dL Ammonia (9-33) umol/L 01/14/19 01/14/19 01/13/19 Range/Units 05:00 04:34 20:53 WBC (4.8-10.8) K/uL RBC (4.40-5.90) Mil/uL Hgb (12.0-18.0) g/dL Hct (35.0-51.0) % MCV (80.0-94.0) fl MCH (27.0-31.0) pg MCHC (33.0-37.0) g/dL RDW (11.5-14.5) % Plt Count (130-400) K/uL pCO2 32 L (35-45) mm/Hg pO2 82 (80-100) mm/Hg HCO3 26.0 (21-28) mmol/L ABG pH 7.49 H (7.35-7.45) ABG Total CO2 25.4 (22-28) mmol/L ABG O2 Saturation 98.3 H (95-98) % ABG O2 Content 16.2 (15-23) ML/dL ABG Base Excess 1.5 (-2.0-3.0) mmol/L ABG Hemoglobin 12.1 (11.7-17.4) g/dL ABG Carboxyhemoglobin 1.9 H (0.5-1.5) % POC ABG HHb (Measured) 1.6 (0.0-5.0) % ABG Methemoglobin 1.5 (0.0-3.0) % ABG O2 Capacity 16.5 (16-24) mL/dL [place]illo Test Yes A-a O2 Difference 92.0 mm/Hg Hgb O2 Saturation 95.0 (95.0-98.0) % Vent Mode A/c Mechanical Rate 10 FiO2 30.0 % Tidal Volume 400 PEEP 5 Sodium (132-148) mmol/l Potassium (3.6-5.0) MMOL/L Chloride (98-107) mmol/L Carbon Dioxide (22-30) mmol/L Anion Gap (10-20) BUN (9-20) mg/dl Creatinine (0.8-1.5) mg/dl Est GFR ( Amer) Est GFR (Non-Af Amer) POC Glucose (mg/dL) 314 H (65-110) mg/dL Random Glucose (75-110) mg/dL Calcium (8.4-10.2) mg/dL Ammonia 205 H* (9-33) umol/L 01/13/19 01/13/19 Range/Units 16:47 11:07 WBC (4.8-10.8) K/uL RBC (4.40-5.90) Mil/uL Hgb (12.0-18.0) g/dL Hct (35.0-51.0) % MCV (80.0-94.0) fl MCH (27.0-31.0) pg MCHC (33.0-37.0) g/dL RDW (11.5-14.5) % Plt Count (130-400) K/uL pCO2 (35-45) mm/Hg pO2 (80-100) mm/Hg HCO3 (21-28) mmol/L ABG pH (7.35-7.45) ABG Total CO2 (22-28) mmol/L ABG O2 Saturation (95-98) % ABG O2 Content (15-23) ML/dL ABG Base Excess (-2.0-3.0) mmol/L ABG Hemoglobin (11.7-17.4) g/dL ABG Carboxyhemoglobin (0.5-1.5) % POC ABG HHb (Measured) (0.0-5.0) % ABG Methemoglobin (0.0-3.0) % ABG O2 Capacity (16-24) mL/dL [place] Test A-a O2 Difference mm/Hg Hgb O2 Saturation (95.0-98.0) % Vent Mode Mechanical Rate FiO2 % Tidal Volume PEEP Sodium (132-148) mmol/l Potassium (3.6-5.0) MMOL/L Chloride (98-107) mmol/L Carbon Dioxide (22-30) mmol/L Anion Gap (10-20) BUN (9-20) mg/dl Creatinine (0.8-1.5) mg/dl Est GFR ( Amer) Est GFR (Non-Af Amer) POC Glucose (mg/dL) 276 H 295 H (65-110) mg/dL Random Glucose (75-110) mg/dL Calcium (8.4-10.2) mg/dL Ammonia (9-33) umol/L Laboratory Results - last 24 hr 01/13/19 01/13/19 01/13/19 11:07 16:47 20:53 WBC RBC Hgb Hct MCV MCH MCHC RDW Plt Count pCO2 pO2 HCO3 ABG pH ABG Total CO2 ABG O2 Saturation ABG O2 Content ABG Base Excess ABG Hemoglobin ABG Carboxyhemoglobin POC ABG HHb (Measured) ABG Methemoglobin ABG O2 Capacity [place] Test A-a O2 Difference Hgb O2 Saturation Vent Mode Mechanical Rate FiO2 Tidal Volume PEEP Sodium Potassium Chloride Carbon Dioxide Anion Gap BUN Creatinine Est GFR ( Amer) Est GFR (Non-Af Amer) POC Glucose (mg/dL) 295 H 276 H 314 H Random Glucose Calcium Ammonia 01/14/19 01/14/19 01/14/19 04:34 05:00 05:00 WBC 7.9 RBC 3.06 L Hgb 11.7 L Hct 34.1 L MCV 111.5 H MCH 38.2 H MCHC 34.3 RDW 17.9 H Plt Count 49 L pCO2 32 L pO2 82 HCO3 26.0 ABG pH 7.49 H ABG Total CO2 25.4 ABG O2 Saturation 98.3 H ABG O2 Content 16.2 ABG Base Excess 1.5 ABG Hemoglobin 12.1 ABG Carboxyhemoglobin 1.9 H POC ABG HHb (Measured) 1.6 ABG Methemoglobin 1.5 ABG O2 Capacity 16.5 [place]up[place] Test Yes A-a O2 Difference 92.0 Hgb O2 Saturation 95.0 Vent Mode A/c Mechanical Rate 10 FiO2 30.0 Tidal Volume 400 PEEP 5 Sodium Potassium Chloride Carbon Dioxide Anion Gap BUN Creatinine Est GFR ( Amer) Est GFR (Non-Af Amer) POC Glucose (mg/dL) Random Glucose Calcium Ammonia 205 H* 01/14/19 01/14/19 05:10 06:24 WBC RBC Hgb Hct MCV MCH MCHC RDW Plt Count pCO2 pO2 HCO3 ABG pH ABG Total CO2 ABG O2 Saturation ABG O2 Content ABG Base Excess ABG Hemoglobin ABG Carboxyhemoglobin POC ABG HHb (Measured) ABG Methemoglobin ABG O2 Capacity [place] Test A-a O2 Difference Hgb O2 Saturation Vent Mode Mechanical Rate FiO2 Tidal Volume PEEP Sodium 133 Potassium 5.0 Chloride 104 Carbon Dioxide 23 Anion Gap 11 BUN 94 H Creatinine 1.5 Est GFR ( Amer) 56 Est GFR (Non-Af Amer) 46 POC Glucose (mg/dL) 267 H Random Glucose 300 H Calcium 8.4 Ammonia Radiology Impressions: Radiology Impressions Chest X-Ray 01/13/19 05:00 IMPRESSION: ETT and NGT as above. Mild bibasilar atelectasis. Fingerstick Blood Sugar Results: 267 Review of Systems - Review of Systems Systems not reviewed;Unavailable: Intubated Critical Care Progress Note - Ventilator Checklist Head of Bed 30 Degrees: Yes Daily Sedation Vacation: Yes Daily Assessment of Readiness to Wean: Yes Daily Spontaneous Breathing Trial: Yes PUD Prophalyxis: Yes DVT Prophylaxis: Yes Oral Care with Chlorhexidine Gluconate {CHG}: Yes - Extremities/Vascular Does the Patient have a Central Venous Catheter?: Yes Does the Patient need a Central Venous Catheter?: Yes Does the Patient have a Howe Catheter?: No Does the Patient need a Howe Catheter?: No Assessment/Plan (1) Acute respiratory failure Current Visit: Yes Status: Acute Priority: High Comment: Patient orally intubated and mechanically ventilated due to altered mental status from hepatic encephalopathy and hyperammonemia Avoid sedation Continue lactulose and rifaximin Frequent neuro check Vent weaning to be started when mental status improves Maintain aspiration precaution Daily chest x-ray and ABG while intubated Tube feeding rate adjusted after discussion with television repair teacher (2) Hepatic encephalopathy Current Visit: Yes Status: Acute Priority: High (3) Alcoholic cirrhosis of liver Current Visit: Yes Status: Acute Priority: High (4) Hyperammonemia Current Visit: Yes Status: Acute Priority: High (5) Thrombocytopenia Current Visit: Yes Status: Acute Priority: High Comment: Morning labs reviewed platelet count 49K, no signs of active bleeding, hemoglobin/Hct stable
--- NOTE | 2019-01-14 08:12 | RAD ---
Date of service: 01/14/2019 HISTORY: Intubated COMPARISON: Portable chest 01/13/2019. TECHNIQUE: 1 view obtained. FINDINGS: LUNGS: Endotracheal and nasogastric tubes do not appear significantly changed in position. Limited linear atelectasis is again seen the left base and is developing at the right base medially. Overlapped bronchovascular structures are favored over infiltrate at the medial bases bilaterally. PLEURA: No significant pleural effusion identified, no pneumothorax apparent. CARDIOVASCULAR: No aortic atherosclerotic calcification present. Normal cardiac size. No pulmonary vascular congestion. OSSEOUS STRUCTURES: No significant abnormalities. VISUALIZED UPPER ABDOMEN: Normal. OTHER FINDINGS: None. IMPRESSION: Linear atelectasis is identified at the bilateral bases. Overlapped bronchovascular structures are favored over limited airspace disease at the medial bases bilaterally. No acute cardiovascular changes.
[2019-01-14] MEDS: Insulin Detemir 100 Units/ml Inj SC SCH (09:22)
[2019-01-14] MEDS: Pantoprazole 40 mg Susp UD NG SCH (09:23)
[2019-01-14] MEDS ORDERED: Albumin Human 5% (12.5 gm/250 ml) IV ONE (14:20)
--- NOTE | 2019-01-14 22:41 | CP.PCM.PN ---
Subjective - Date & Time of Evaluation Date of Evaluation: 01/14/19 Time of Evaluation: 20:00 - Subjective Subjective: Vented. Objective - Vital Signs/Intake and Output Vital Signs (last 24 hours): Temp Pulse Resp BP Pulse Ox 98.2 F 81 32 H 124/52 L 98 01/14/19 20:00 01/14/19 22:00 01/14/19 22:00 01/14/19 22:00 01/14/19 22:00 Intake and Output: 01/14/19 01/15/19 18:59 06:59 Intake Total 2500 855 Output Total 1 Balance 2499 855 - Medications Medications: Current Medications Carvedilol (Coreg) 6.25 mg NG Q12 [facility] Last Admin: 01/14/19 20:04 Dose: 6.25 mg Cilostazol (Pletal) 50 mg PO Q12 [facility] Last Admin: 01/07/19 10:22 Dose: Not Given Folic Acid (Folic Acid) 1 mg GT DAILY [facility] Last Admin: 01/14/19 09:22 Dose: 1 mg Hydralazine HCl (Apresoline) 25 mg PO TID [facility] Last Admin: 01/14/19 18:11 Dose: 25 mg Insulin Detemir (Levemir) 15 units SC DAILY [facility] Last Admin: 01/14/19 09:22 Dose: 15 units Insulin Human Regular (Humulin R) 0 units SC Q6H [facility]; Protocol Last Admin: 01/14/19 18:12 Dose: 3 unit Lactulose (Enulose) 20 gm GT Q4H [facility] Last Admin: 01/14/19 21:27 Dose: 20 gm Levothyroxine Sodium (Synthroid) 50 mcg PO DAILY@0630 [facility] Last Admin: 01/14/19 06:38 Dose: 50 mcg Pantoprazole Sodium (Protonix Susp) 40 mg NG DAILY [facility] Last Admin: 01/14/19 09:23 Dose: 40 mg Rifaximin (Xifaxan) 550 mg PO BID [facility]; Protocol Last Admin: 01/14/19 18:19 Dose: 550 mg Thiamine HCl (Vitamin B1 Tab) 100 mg GT DAILY [facility] Last Admin: 01/14/19 09:23 Dose: 100 mg - Labs Labs: 01/14/19 05:00 01/14/19 05:10 PT 16.1 Seconds (9.8-13.1) H 01/11/19 05:33 INR 1.4 01/11/19 05:33 APTT 32.9 Seconds (25.6-37.1) 01/11/19 05:33 - Head Exam Head Exam: ATRAUMATIC - Eye Exam Eye Exam: Normal appearance - ENT Exam ENT Exam: Mucous Membranes Dry - Respiratory Exam Respiratory Exam: NORMAL BREATHING PATTERN - Cardiovascular Exam Cardiovascular Exam: +S1, +S2 - GI/Abdominal Exam GI & Abdominal Exam: Normal Bowel Sounds Assessment and Plan (1) Thrombocytopenia Assessment & Plan: liver cirrhosis and splenic sequestration Status: Acute (2) Coagulopathy Assessment & Plan: liver disease nutritional component vit k and FFP PRN Status: Acute (3) Liver mass Assessment & Plan: ? HCC outpatient f/u with primary screen printer helper Status: Acute
--- NOTE | 2019-01-15 03:10 | CP.PCM.PN ---
Subjective - Date & Time of Evaluation Date of Evaluation: 01/12/19 Objective - Vital Signs/Intake and Output Vital Signs (last 24 hours): Temp Pulse Resp BP Pulse Ox 98.2 F 73 21 118/53 L 98 01/15/19 00:00 01/15/19 02:00 01/15/19 02:00 01/15/19 02:00 01/15/19 02:00 Intake and Output: 01/14/19 01/15/19 18:59 06:59 Intake Total 2500 1425 Output Total 1 1 Balance 2499 1424 - Medications Medications: Current Medications Carvedilol (Coreg) 6.25 mg NG Q12 [facility] Last Admin: 01/14/19 20:04 Dose: 6.25 mg Cilostazol (Pletal) 50 mg PO Q12 [facility] Last Admin: 01/07/19 10:22 Dose: Not Given Folic Acid (Folic Acid) 1 mg GT DAILY [facility] Last Admin: 01/14/19 09:22 Dose: 1 mg Hydralazine HCl (Apresoline) 25 mg PO TID [facility] Last Admin: 01/14/19 18:11 Dose: 25 mg Insulin Detemir (Levemir) 15 units SC DAILY [facility] Last Admin: 01/14/19 09:22 Dose: 15 units Insulin Human Regular (Humulin R) 0 units SC Q6H [facility]; Protocol Last Admin: 01/14/19 23:45 Dose: Not Given Lactulose (Enulose) 20 gm GT Q4H [facility] Last Admin: 01/15/19 01:58 Dose: 20 gm Levothyroxine Sodium (Synthroid) 50 mcg PO DAILY@0630 [facility] Last Admin: 01/14/19 06:38 Dose: 50 mcg Pantoprazole Sodium (Protonix Susp) 40 mg NG DAILY [facility] Last Admin: 01/14/19 09:23 Dose: 40 mg Rifaximin (Xifaxan) 550 mg PO BID [facility]; Protocol Last Admin: 01/14/19 18:19 Dose: 550 mg Thiamine HCl (Vitamin B1 Tab) 100 mg GT DAILY [facility] Last Admin: 01/14/19 09:23 Dose: 100 mg - Labs Labs: 01/14/19 05:00 01/14/19 05:10 PT 16.1 Seconds (9.8-13.1) H 01/11/19 05:33 INR 1.4 01/11/19 05:33 APTT 32.9 Seconds (25.6-37.1) 01/11/19 05:33 Assessment and Plan (1) Alcoholic cirrhosis of liver Status: Acute (2) Hepatic encephalopathy Status: Acute (3) DM type 2 (diabetes mellitus, type 2) Status: Acute (4) Altered mental status Status: Acute (5) Acute respiratory failure Status: Acute
--- NOTE | 2019-01-15 03:10 | CP.PCM.PN ---
Subjective - Date & Time of Evaluation Date of Evaluation: 01/13/19 Objective - Vital Signs/Intake and Output Vital Signs (last 24 hours): Temp Pulse Resp BP Pulse Ox 98.2 F 73 21 118/53 L 98 01/15/19 00:00 01/15/19 02:00 01/15/19 02:00 01/15/19 02:00 01/15/19 02:00 Intake and Output: 01/14/19 01/15/19 18:59 06:59 Intake Total 2500 1425 Output Total 1 1 Balance 2499 1424 - Medications Medications: Current Medications Carvedilol (Coreg) 6.25 mg NG Q12 [facility] Last Admin: 01/14/19 20:04 Dose: 6.25 mg Cilostazol (Pletal) 50 mg PO Q12 [facility] Last Admin: 01/07/19 10:22 Dose: Not Given Folic Acid (Folic Acid) 1 mg GT DAILY [facility] Last Admin: 01/14/19 09:22 Dose: 1 mg Hydralazine HCl (Apresoline) 25 mg PO TID [facility] Last Admin: 01/14/19 18:11 Dose: 25 mg Insulin Detemir (Levemir) 15 units SC DAILY [facility] Last Admin: 01/14/19 09:22 Dose: 15 units Insulin Human Regular (Humulin R) 0 units SC Q6H [facility]; Protocol Last Admin: 01/14/19 23:45 Dose: Not Given Lactulose (Enulose) 20 gm GT Q4H [facility] Last Admin: 01/15/19 01:58 Dose: 20 gm Levothyroxine Sodium (Synthroid) 50 mcg PO DAILY@0630 [facility] Last Admin: 01/14/19 06:38 Dose: 50 mcg Pantoprazole Sodium (Protonix Susp) 40 mg NG DAILY [facility] Last Admin: 01/14/19 09:23 Dose: 40 mg Rifaximin (Xifaxan) 550 mg PO BID [facility]; Protocol Last Admin: 01/14/19 18:19 Dose: 550 mg Thiamine HCl (Vitamin B1 Tab) 100 mg GT DAILY [facility] Last Admin: 01/14/19 09:23 Dose: 100 mg - Labs Labs: 01/14/19 05:00 01/14/19 05:10 PT 16.1 Seconds (9.8-13.1) H 01/11/19 05:33 INR 1.4 01/11/19 05:33 APTT 32.9 Seconds (25.6-37.1) 01/11/19 05:33 Assessment and Plan (1) Alcoholic cirrhosis of liver Status: Acute (2) Hepatic encephalopathy Status: Acute (3) DM type 2 (diabetes mellitus, type 2) Status: Acute (4) Altered mental status Status: Acute (5) Acute respiratory failure Status: Acute
--- NOTE | 2019-01-15 03:11 | CP.PCM.PN ---
Subjective - Date & Time of Evaluation Date of Evaluation: 01/14/19 Objective - Vital Signs/Intake and Output Vital Signs (last 24 hours): Temp Pulse Resp BP Pulse Ox 98.2 F 73 21 118/53 L 98 01/15/19 00:00 01/15/19 02:00 01/15/19 02:00 01/15/19 02:00 01/15/19 02:00 Intake and Output: 01/14/19 01/15/19 18:59 06:59 Intake Total 2500 1425 Output Total 1 1 Balance 2499 1424 - Medications Medications: Current Medications Carvedilol (Coreg) 6.25 mg NG Q12 [facility] Last Admin: 01/14/19 20:04 Dose: 6.25 mg Cilostazol (Pletal) 50 mg PO Q12 [facility] Last Admin: 01/07/19 10:22 Dose: Not Given Folic Acid (Folic Acid) 1 mg GT DAILY [facility] Last Admin: 01/14/19 09:22 Dose: 1 mg Hydralazine HCl (Apresoline) 25 mg PO TID [facility] Last Admin: 01/14/19 18:11 Dose: 25 mg Insulin Detemir (Levemir) 15 units SC DAILY [facility] Last Admin: 01/14/19 09:22 Dose: 15 units Insulin Human Regular (Humulin R) 0 units SC Q6H [facility]; Protocol Last Admin: 01/14/19 23:45 Dose: Not Given Lactulose (Enulose) 20 gm GT Q4H [facility] Last Admin: 01/15/19 01:58 Dose: 20 gm Levothyroxine Sodium (Synthroid) 50 mcg PO DAILY@0630 [facility] Last Admin: 01/14/19 06:38 Dose: 50 mcg Pantoprazole Sodium (Protonix Susp) 40 mg NG DAILY [facility] Last Admin: 01/14/19 09:23 Dose: 40 mg Rifaximin (Xifaxan) 550 mg PO BID [facility]; Protocol Last Admin: 01/14/19 18:19 Dose: 550 mg Thiamine HCl (Vitamin B1 Tab) 100 mg GT DAILY [facility] Last Admin: 01/14/19 09:23 Dose: 100 mg - Labs Labs: 01/14/19 05:00 01/14/19 05:10 PT 16.1 Seconds (9.8-13.1) H 01/11/19 05:33 INR 1.4 01/11/19 05:33 APTT 32.9 Seconds (25.6-37.1) 01/11/19 05:33 Assessment and Plan (1) Alcoholic cirrhosis of liver Status: Acute (2) Hepatic encephalopathy Status: Acute (3) DM type 2 (diabetes mellitus, type 2) Status: Acute (4) Altered mental status Status: Acute (5) Acute respiratory failure Status: Acute
[2019-01-15] MEDS: Insulin Regular 100 units/ml SC SCH ×4 (05:00→23:00)
[2019-01-15 05:08] LABS: ABG ALLEN TEST YES; ARTERIAL BLOOD GAS HCO3 24.6 mmol/L (21-28); ARTERIAL BLOOD GAS HEMOGLOBIN 11.9 g/dL (11.7-17.4); ARTERIAL BLOOD GAS O2 CAPACITY 16.3 mL/dL (16-24); ARTERIAL BLOOD GAS O2 CONTENT 16.2 ML/dL (15-23); ARTERIAL BLOOD GAS O2 SAT 99.2 % (95-98); ARTERIAL BLOOD GAS PCO2 31 mm/Hg (35-45); ARTERIAL BLOOD GAS PH 7.47 (7.35-7.45); ARTERIAL BLOOD GAS PO2 90 mm/Hg (80-100); ARTERIAL BLOOD GAS TCO2 23.6 mmol/L (22-28)
[2019-01-15 05:15] LABS: HEMOGLOBIN 11.6 g/dL (12.0-18.0); MEAN CELL VOLUME 110.6 fl (80.0-94.0); MEAN CORPUSCULAR HEMOGLOBIN 38.3 pg (27.0-31.0); MEAN CORPUSCULAR HGB CONC 34.6 g/dL (33.0-37.0); RBC 3.04 Mil/uL (4.40-5.90); RED CELL DISTRIBUTION WIDTH 17.8 % (11.5-14.5); WHITE BLOOD COUNT 9.4 K/uL (4.8-10.8)
[2019-01-15] MEDS: Levothyroxine 50 MCG TAB PO SCH (05:30)
[2019-01-15 05:39] LABS: CALCIUM 7.9 mg/dL (8.4-10.2); GFR NON-AFRICAN AMERICAN 50
[2019-01-15 05:42] LABS: BLOOD UREA NITROGEN 105 mg/dl (9-20)
--- NOTE | 2019-01-15 08:18 | RAD ---
Date of service: 01/15/2019 HISTORY: intubated COMPARISON: Portable chest 01/14/2019 9:16 a.m.. TECHNIQUE: 1 view obtained. FINDINGS: LUNGS: Endotracheal and nasogastric tubes are not significantly changed in position. Image appears captured at an expiratory volume. Limited patchy atelectasis seen at the left base, favored over infiltrate, with linear atelectasis identified at the right base. PLEURA: Pneumothorax or pleural effusion identified bilaterally. CARDIOVASCULAR: No aortic atherosclerotic calcification present. Normal cardiac size. No pulmonary vascular congestion. OSSEOUS STRUCTURES: No significant abnormalities. VISUALIZED UPPER ABDOMEN: Normal. OTHER FINDINGS: None. IMPRESSION: Atelectasis favored over pneumonia left base with linear atelectasis identified at the medial right base. Diminished pulmonary volumes noted bilaterally. No pulmonary vascular congestion identified.
[2019-01-15] MEDS: Insulin Detemir 100 Units/ml Inj SC SCH (08:50)
[2019-01-15] MEDS: Pantoprazole 40 mg Susp UD NG SCH (08:51)
--- NOTE | 2019-01-15 08:52 | RAD ---
Date of service: 01/14/2019 HISTORY: ETT postition COMPARISON: Portable chest 01/14/2019 5:13 a.m.. TECHNIQUE: 1 view obtained. FINDINGS: Endotracheal tube terminates 2.5 cm above the montserrat once again. Nasogastric tube is again seen coiled at the epigastric region in the abdomen. LUNGS: Linear atelectasis is reiterated at the right base, diminished with patchy density at the retrocardiac left base suspicious for slight increase in atelectasis or potential pneumonia. PLEURA: No significant pleural effusion identified, no pneumothorax apparent. CARDIOVASCULAR: No aortic atherosclerotic calcification present. Normal cardiac size. No pulmonary vascular congestion. OSSEOUS STRUCTURES: No significant abnormalities. VISUALIZED UPPER ABDOMEN: Normal. OTHER FINDINGS: None. IMPRESSION: Likely increased atelectasis in the retrocardiac left base though pneumonia is not completely excluded. Diminishing linear atelectasis right base. ET and nasogastric tubes not significantly changed in position.
--- NOTE | 2019-01-15 10:45 | CP.PCM.CON ---
History of Present Illness - History of Present Illness History of Present Illness: This patient is a 69-year-old male I was called to see him for abnormal kidney function hyponatremia. There is no history available from the patient. Information in the history was taken from the medical record as follow Patient is 68 years old male with past medical history of Diabetes, Gastritis, HTN, Hypercholesterolemia, Chronic Kidney Disease, liver cirrhosis, hepatic encephalopathy and liver malignancy Who was brought in to the emergency room by the family for evaluation of altered mental status, confusion and abdominal pain Patient was transferred to the intensive care unit the following morning for his worsening of his mental status in the setting of markedly elevated ammonia level up to 367 also overnight he received Ativan for agitation, patient was anxious getting out of bed and unsteady on his feet so Ativan was given Social history not contributory patient is in the intensive care unit Review of Systems - Review of Systems Systems not reviewed;Unavailable: Respiratory Distress - Constitutional Constitutional: Anorexia. absent: Chills - Cardiovascular Cardiovascular: Dyspnea, Edema. absent: Acrocyanosis - Respiratory Respiratory: Chest Congestion. absent: Hemoptysis - Gastrointestinal Gastrointestinal: Abdominal Pain, Nausea. absent: Coffee Ground Emesis - Musculoskeletal Musculoskeletal: As Per HPI - Neurological Neurological: As Per HPI - Endocrine Endocrine: Fatigue - Hematologic/Lymphatic Hematologic: absent: Easy Bleeding Past Patient History - Infectious Disease Hx of Infectious Diseases: None - Past Medical History & Family History Past Medical History?: Yes - Past Social History Smoking Status: Never Smoked Chewing Tobacco Use: No Cigar Use: No - CARDIAC Hx Cardiac Disorders: Yes Hx Hypercholesterolemia: Yes Hx Hypertension: Yes - PULMONARY Hx Respiratory Disorders: No - NEUROLOGICAL Hx Neurological Disorder: No - HEENT Hx HEENT Problems: Yes Hx Cataracts: Yes - RENAL Hx Chronic Kidney Disease: No ( denies hx) - ENDOCRINE/METABOLIC Hx Endocrine Disorders: Yes Hx Diabetes Mellitus Type 2: Yes - HEMATOLOGICAL/ONCOLOGICAL Hx Blood Disorders: No Hx AIDS: No Hx Human Immunodeficiency Virus (HIV): No - INTEGUMENTARY Hx Dermatological Problems: No - MUSCULOSKELETAL/RHEUMATOLOGICAL Hx Musculoskeletal Disorders: Yes Hx Falls: Yes - GASTROINTESTINAL Hx Gastrointestinal Disorders: Yes Hx Gastritis: Yes Hx Liver Failure: Yes - GENITOURINARY/GYNECOLOGICAL Hx Genitourinary Disorders: No - PSYCHIATRIC Hx Psychophysiologic Disorder: No Hx Substance Use: No - SURGICAL HISTORY Hx Surgeries: Yes Other/Comment: TIPS 10years ago - ANESTHESIA Hx Anesthesia: Yes Hx Anesthesia Reactions: No Meds Allergies/Adverse Reactions: Allergies Allergy/AdvReac Type Severity Reaction Status Date / Time No Known Allergies Allergy Verified 01/05/19 23:20 - Medications Medications: Current Medications Carvedilol (Coreg) 6.25 mg NG Q12 [facility] Last Admin: 01/15/19 08:50 Dose: 6.25 mg Cilostazol (Pletal) 50 mg PO Q12 [facility] Last Admin: 01/07/19 10:22 Dose: Not Given Folic Acid (Folic Acid) 1 mg GT DAILY [facility] Last Admin: 01/15/19 08:50 Dose: 1 mg Hydralazine HCl (Apresoline) 25 mg PO TID [facility] Last Admin: 01/15/19 08:50 Dose: 25 mg Insulin Detemir (Levemir) 15 units SC DAILY [facility] Last Admin: 01/15/19 08:50 Dose: 15 units Insulin Human Regular (Humulin R) 0 units SC Q6H [facility]; Protocol Last Admin: 01/14/19 23:45 Dose: Not Given Lactulose (Enulose) 20 gm GT Q4H [facility] Last Admin: 01/15/19 10:05 Dose: 20 gm Levothyroxine Sodium (Synthroid) 50 mcg PO DAILY@0630 [facility] Last Admin: 01/15/19 05:30 Dose: 50 mcg Pantoprazole Sodium (Protonix Susp) 40 mg NG DAILY [facility] Last Admin: 01/15/19 08:51 Dose: 40 mg Rifaximin (Xifaxan) 550 mg PO BID [facility]; Protocol Last Admin: 01/15/19 08:51 Dose: 550 mg Thiamine HCl (Vitamin B1 Tab) 100 mg GT DAILY [facility] Last Admin: 01/15/19 08:51 Dose: 100 mg Physical Exam - Constitutional Appears: No Acute Distress - Eye Exam Eye Exam: Conjunctival injection - ENT Exam ENT Exam: Mucous Membranes Moist - Respiratory Exam Respiratory Exam: Rhonchi, NORMAL BREATHING PATTERN. absent: Chest Wall Tenderness - Cardiovascular Exam Cardiovascular Exam: absent: Gallop, JVD, Rubs - GI/Abdominal Exam GI & Abdominal Exam: Guarding, Normal Bowel Sounds - Extremities Exam Extremities exam: Negative for: calf tenderness - Back Exam Back exam: absent: CVA tenderness (L), CVA tenderness (R) - Neurological Exam Neurological exam: Altered - Psychiatric Exam Psychiatric exam: Flat Affect Results - Vital Signs Recent Vital Signs: Last Vital Signs Temp 99.0 F 01/15/19 08:00 Pulse 87 01/15/19 10:00 Resp 26 H 01/15/19 10:00 BP 133/60 01/15/19 10:00 Pulse Ox 97 01/15/19 10:00 - Labs Result Diagrams: 01/15/19 04:45 01/15/19 04:45 Labs: Laboratory Results - last 24 hr 01/14/19 01/14/19 01/14/19 12:15 16:55 21:23 WBC RBC Hgb Hct MCV MCH MCHC RDW Plt Count pCO2 pO2 HCO3 ABG pH ABG Total CO2 ABG O2 Saturation ABG O2 Content ABG Base Excess ABG Hemoglobin ABG Carboxyhemoglobin POC ABG HHb (Measured) ABG Methemoglobin ABG O2 Capacity [place] Test A-a O2 Difference Hgb O2 Saturation Vent Mode Mechanical Rate FiO2 Tidal Volume PEEP Sodium Potassium Chloride Carbon Dioxide Anion Gap BUN Creatinine Est GFR ( Amer) Est GFR (Non-Af Amer) POC Glucose (mg/dL) 274 H 254 H 254 H Random Glucose Calcium 01/15/19 01/15/19 01/15/19 04:43 04:45 04:45 WBC 9.4 RBC 3.04 L Hgb 11.6 L Hct 33.6 L MCV 110.6 H MCH 38.3 H MCHC 34.6 RDW 17.8 H Plt Count 57 L pCO2 31 L pO2 90 HCO3 24.6 ABG pH 7.47 H ABG Total CO2 23.6 ABG O2 Saturation 99.2 H ABG O2 Content 16.2 ABG Base Excess -0.4 ABG Hemoglobin 11.9 ABG Carboxyhemoglobin 2.1 H POC ABG HHb (Measured) 0.8 ABG Methemoglobin 1.0 ABG O2 Capacity 16.3 [place] Test Yes A-a O2 Difference 85.0 Hgb O2 Saturation 96.2 Vent Mode A/c Mechanical Rate 10 FiO2 30.0 Tidal Volume 400 PEEP 5 Sodium 129 L Potassium 5.1 H Chloride 100 Carbon Dioxide 20 L Anion Gap 14 BUN 105 H* Creatinine 1.4 Est GFR ( Amer) > 60 Est GFR (Non-Af Amer) 50 POC Glucose (mg/dL) Random Glucose 232 H Calcium 7.9 L 01/15/19 05:09 WBC RBC Hgb Hct MCV MCH MCHC RDW Plt Count pCO2 pO2 HCO3 ABG pH ABG Total CO2 ABG O2 Saturation ABG O2 Content ABG Base Excess ABG Hemoglobin ABG Carboxyhemoglobin POC ABG HHb (Measured) ABG Methemoglobin ABG O2 Capacity [place] Test A-a O2 Difference Hgb O2 Saturation Vent Mode Mechanical Rate FiO2 Tidal Volume PEEP Sodium Potassium Chloride Carbon Dioxide Anion Gap BUN Creatinine Est GFR ( Amer) Est GFR (Non-Af Amer) POC Glucose (mg/dL) 241 H Random Glucose Calcium Assessment & Plan (1) Hyponatremia Assessment and Plan: Acute kidney injury with hepatorenal syndrome most likely Hyponatremia serum sodium trending down rapidly. NG tube feeding noted with 300 cc of water has been given every 6 hours through the NG tube. Patient diagnosed with liver cirrhosis and liver malignancy as noted Hepatic encephalopathy Status post chemotherapy apparently Recommendation Stat spot urine for sodium osmolarity and creatinine. Discontinue water flush through the NG tube for the next 24 hours Adjust medication as per GFR as noted Respiratory management and the rest of the management as per primary team in the intensive care unit. Continue albumin infusion as ordered Status: Acute (2) NIRAJ (acute kidney injury) Status: Acute (3) Acute respiratory failure Status: Acute Priority: High (4) Altered mental status Status: Acute Priority: High (5) Hepatic encephalopathy Status: Acute Priority: High (6) Hyperammonemia Status: Acute Priority: High (7) Liver mass Status: Acute (8) Thrombocytopenia Status: Acute
[2019-01-15 15:28] LABS: ALB/GLOB RATIO 0.6 (1.0-2.1); ALBUMIN 2.2 g/dL (3.5-5.0); CALCIUM 8.5 mg/dL (8.4-10.2)
[2019-01-15 15:39] LABS: CREATININE, RANDOM URINE 89.9 mg/dL; OSMOLALITY,URINE 504 mosm/kg (300-1000)
--- NOTE | 2019-01-15 16:23 | CP.CCUPN ---
<VacherieFitzhugh - Last Filed: 01/15/19 17:10> CCU Subjective - Physician Review Subjective (Free Text): 01/15/19 15:05 68 yo Male with PMHx of DMII, Gastritis, HTN, Hypercholesterolemia, Chronic Kidney Disease, liver cirrhosis, hepatic encephalopathy and liver malignancy was brought in to the emergency room on 01/06/19 by the family for evaluation of altered mental status, confusion and abdominal pain. Patient was initially admitted to Med/surg unit, however was transferred to the intensive care unit later in the evening for his worsening of his mental status in the setting of markedly elevated ammonia level up to 367 also overnight he received Ativan for agitation, patient was anxious getting out of bed and unsteady on his feet so Ativan was given. Patient was found to be agonal breathing shallow respiration minimal response to pain, Romazicon was ordered but he was urgently intubated and mechanically ventilated. Patient was currently off sedation for several days last dose was on the 27th midnight 2 mg of Versed Patient seen and evaluated this morning. On ventilation with vent setting PRVC/AC 12, 400, PEEP 5 with FiO2 of 30%, saturating 97% Overnight events and nurses notes reviewed. Patient received a dose of Ativan 1 mg this morning due to agitation. Patient remains sedated after the Ativan. Has low grade fever this after with stable BP and HR NSR on the monitor Patient had one BM yesterday and another BM today, receiving lactulose 20 gm q4h and Rifaximin 550 mg bid. Patients renal function is progressively declining and Dr. Banda was re- consulted. CCU Objective - Vital Signs / Intake & Output Vital Signs (Last 4 hours): Vital Signs Pulse Resp BP Pulse Ox 01/15/19 14:00 83 18 126/49 L 97 01/15/19 12:57 80 112/48 L Intake and Output (Last 8hrs): Intake & Output 01/15/19 01/15/19 01/15/19 06:59 14:59 22:59 Intake Total 875 740 Output Total 2 300 Balance 873 440 Weight 97.069 kg Intake: Tube Feeding 495 440 Free Water Flush 380 300 Output: Urine 300 Urine, Voided 300 Urine/Stool Mix 2 Other: # Voids Urethral (Howe) 1 # Bowel Movements 1 - Physical Exam Head: Positive for: Atraumatic, Normocephalic Pupils: Positive for: PERRL Extroacular Muscles: Positive for: EOMI Conjunctiva: Positive for: Icteric Ears: Positive for: Normal Mouth: Positive for: Moist Mucous Membranes Nose (External): Positive for: Atraumatic Respiratory/Chest: Positive for: Clear to Auscultation, Good Air Exchange Cardiovascular: Positive for: Regular Rate and Rhythm Abdomen: Positive for: Normal Bowel Sounds. Negative for: Tenderness, Distention Upper Extremity: Positive for: Normal Inspection Lower Extremity: Positive for: Normal Inspection Psychiatric: Negative for: Alert - Medications Active Medications: Active Medications Generic Name Dose Route Start Last Admin Trade Name Freq PRN Reason Stop Dose Admin Carvedilol 6.25 mg 01/06/19 21:00 01/15/19 08:50 Coreg NG 6.25 mg Q12 JOANNA Administration Cilostazol 50 mg 01/06/19 10:30 01/07/19 10:22 Pletal PO Not Given Q12 JOANNA Folic Acid 1 mg 01/10/19 09:00 01/15/19 08:50 Folic Acid GT 1 mg DAILY JOANNA Administration Hydralazine HCl 25 mg 01/12/19 13:00 01/15/19 12:57 Apresoline PO 25 mg TID JOANNA Administration Insulin Detemir 15 units 01/14/19 09:00 01/15/19 08:50 Levemir SC 15 units DAILY JOANNA Administration Insulin Human Regular 0 units 01/06/19 11:30 01/15/19 12:57 Humulin R SC 3 unit Q6H JOANNA Administration Protocol Lactulose 20 gm 01/13/19 06:15 01/15/19 14:25 Enulose GT 20 gm Q4H JOANNA Administration Levothyroxine Sodium 50 mcg 01/09/19 06:30 01/15/19 05:30 Synthroid PO 50 mcg DAILY@0630 JOANNA Administration Pantoprazole Sodium 40 mg 01/07/19 13:15 01/15/19 08:51 Protonix Susp NG 40 mg DAILY JOANNA Administration Rifaximin 550 mg 01/11/19 17:00 01/15/19 08:51 Xifaxan PO 550 mg BID JOANNA Administration Protocol Thiamine HCl 100 mg 01/10/19 09:00 01/15/19 08:51 Vitamin B1 Tab GT 100 mg DAILY JOANNA Administration - Patient Studies Lab Studies: Lab Studies 01/15/19 01/15/19 01/15/19 Range/Units 14:45 14:36 13:08 WBC (4.8-10.8) K/uL RBC (4.40-5.90) Mil/uL Hgb (12.0-18.0) g/dL Hct (35.0-51.0) % MCV (80.0-94.0) fl MCH (27.0-31.0) pg MCHC (33.0-37.0) g/dL RDW (11.5-14.5) % Plt Count (130-400) K/uL pCO2 (35-45) mm/Hg pO2 (80-100) mm/Hg HCO3 (21-28) mmol/L ABG pH (7.35-7.45) ABG Total CO2 (22-28) mmol/L ABG O2 Saturation (95-98) % ABG O2 Content (15-23) ML/dL ABG Base Excess (-2.0-3.0) mmol/L ABG Hemoglobin (11.7-17.4) g/dL ABG Carboxyhemoglobin (0.5-1.5) % POC ABG HHb (Measured) (0.0-5.0) % ABG Methemoglobin (0.0-3.0) % ABG O2 Capacity (16-24) mL/dL Lupillo Test A-a O2 Difference mm/Hg Hgb O2 Saturation (95.0-98.0) % Vent Mode Mechanical Rate FiO2 % Tidal Volume PEEP Sodium 132 (132-148) mmol/l Potassium 5.0 (3.6-5.0) MMOL/L Chloride 102 (98-107) mmol/L Carbon Dioxide 24 (22-30) mmol/L Anion Gap 11 (10-20) BUN 107 H* (9-20) mg/dl Creatinine 1.5 (0.8-1.5) mg/dl Est GFR ( Amer) 56 Est GFR (Non-Af Amer) 46 POC Glucose (mg/dL) (65-110) mg/dL Random Glucose 232 H (75-110) mg/dL Calcium 8.5 (8.4-10.2) mg/dL Phosphorus 4.0 (2.5-4.5) mg/dl Magnesium 3.9 H (1.6-2.3) MG/DL Total Bilirubin 2.4 H (0.2-1.3) mg/dl AST 80 H D (17-59) U/L ALT 59 (21-72) U/L Alkaline Phosphatase 289 H D (38-126) U/L Ammonia 222 H* (9-33) umol/L Total Protein 5.7 L (6.3-8.2) G/DL Albumin 2.2 L (3.5-5.0) g/dL Globulin 3.5 (2.2-3.9) gm/dL Albumin/Globulin Ratio 0.6 L (1.0-2.1) Urine Osmolality 504 (300-1000) mosm/kg Ur Random Creatinine 89.9 mg/dL U Random Total Protein 12.0 (0.0-12.0) mg/dL Ur Random Sodium < 5 mmol/L 01/15/19 01/15/19 01/15/19 Range/Units 11:04 05:09 04:45 WBC (4.8-10.8) K/uL RBC (4.40-5.90) Mil/uL Hgb (12.0-18.0) g/dL Hct (35.0-51.0) % MCV (80.0-94.0) fl MCH (27.0-31.0) pg MCHC (33.0-37.0) g/dL RDW (11.5-14.5) % Plt Count (130-400) K/uL pCO2 (35-45) mm/Hg pO2 (80-100) mm/Hg HCO3 (21-28) mmol/L ABG pH (7.35-7.45) ABG Total CO2 (22-28) mmol/L ABG O2 Saturation (95-98) % ABG O2 Content (15-23) ML/dL ABG Base Excess (-2.0-3.0) mmol/L ABG Hemoglobin (11.7-17.4) g/dL ABG Carboxyhemoglobin (0.5-1.5) % POC ABG HHb (Measured) (0.0-5.0) % ABG Methemoglobin (0.0-3.0) % ABG O2 Capacity (16-24) mL/dL [place]up[place] Test A-a O2 Difference mm/Hg Hgb O2 Saturation (95.0-98.0) % Vent Mode Mechanical Rate FiO2 % Tidal Volume PEEP Sodium 129 L (132-148) mmol/l Potassium 5.1 H (3.6-5.0) MMOL/L Chloride 100 (98-107) mmol/L Carbon Dioxide 20 L (22-30) mmol/L Anion Gap 14 (10-20) BUN 105 H* (9-20) mg/dl Creatinine 1.4 (0.8-1.5) mg/dl Est GFR ( Amer) > 60 Est GFR (Non-Af Amer) 50 POC Glucose (mg/dL) 269 H 241 H (65-110) mg/dL Random Glucose 232 H (75-110) mg/dL Calcium 7.9 L (8.4-10.2) mg/dL Phosphorus (2.5-4.5) mg/dl Magnesium (1.6-2.3) MG/DL Total Bilirubin (0.2-1.3) mg/dl AST (17-59) U/L ALT (21-72) U/L Alkaline Phosphatase (38-126) U/L Ammonia (9-33) umol/L Total Protein (6.3-8.2) G/DL Albumin (3.5-5.0) g/dL Globulin (2.2-3.9) gm/dL Albumin/Globulin Ratio (1.0-2.1) Urine Osmolality (300-1000) mosm/kg Ur Random Creatinine mg/dL U Random Total Protein (0.0-12.0) mg/dL Ur Random Sodium mmol/L 01/15/19 01/15/19 01/14/19 Range/Units 04:45 04:43 21:23 WBC 9.4 (4.8-10.8) K/uL RBC 3.04 L (4.40-5.90) Mil/uL Hgb 11.6 L (12.0-18.0) g/dL Hct 33.6 L (35.0-51.0) % MCV 110.6 H (80.0-94.0) fl MCH 38.3 H (27.0-31.0) pg MCHC 34.6 (33.0-37.0) g/dL RDW 17.8 H (11.5-14.5) % Plt Count 57 L (130-400) K/uL pCO2 31 L (35-45) mm/Hg pO2 90 (80-100) mm/Hg HCO3 24.6 (21-28) mmol/L ABG pH 7.47 H (7.35-7.45) ABG Total CO2 23.6 (22-28) mmol/L ABG O2 Saturation 99.2 H (95-98) % ABG O2 Content 16.2 (15-23) ML/dL ABG Base Excess -0.4 (-2.0-3.0) mmol/L ABG Hemoglobin 11.9 (11.7-17.4) g/dL ABG Carboxyhemoglobin 2.1 H (0.5-1.5) % POC ABG HHb (Measured) 0.8 (0.0-5.0) % ABG Methemoglobin 1.0 (0.0-3.0) % ABG O2 Capacity 16.3 (16-24) mL/dL Lupillo Test Yes A-a O2 Difference 85.0 mm/Hg Hgb O2 Saturation 96.2 (95.0-98.0) % Vent Mode A/c Mechanical Rate 10 FiO2 30.0 % Tidal Volume 400 PEEP 5 Sodium (132-148) mmol/l Potassium (3.6-5.0) MMOL/L Chloride (98-107) mmol/L Carbon Dioxide (22-30) mmol/L Anion Gap (10-20) BUN (9-20) mg/dl Creatinine (0.8-1.5) mg/dl Est GFR ( Amer) Est GFR (Non-Af Amer) POC Glucose (mg/dL) 254 H (65-110) mg/dL Random Glucose (75-110) mg/dL Calcium (8.4-10.2) mg/dL Phosphorus (2.5-4.5) mg/dl Magnesium (1.6-2.3) MG/DL Total Bilirubin (0.2-1.3) mg/dl AST (17-59) U/L ALT (21-72) U/L Alkaline Phosphatase (38-126) U/L Ammonia (9-33) umol/L Total Protein (6.3-8.2) G/DL Albumin (3.5-5.0) g/dL Globulin (2.2-3.9) gm/dL Albumin/Globulin Ratio (1.0-2.1) Urine Osmolality (300-1000) mosm/kg Ur Random Creatinine mg/dL U Random Total Protein (0.0-12.0) mg/dL Ur Random Sodium mmol/L 01/14/19 Range/Units 16:55 WBC (4.8-10.8) K/uL RBC (4.40-5.90) Mil/uL Hgb (12.0-18.0) g/dL Hct (35.0-51.0) % MCV (80.0-94.0) fl MCH (27.0-31.0) pg MCHC (33.0-37.0) g/dL RDW (11.5-14.5) % Plt Count (130-400) K/uL pCO2 (35-45) mm/Hg pO2 (80-100) mm/Hg HCO3 (21-28) mmol/L ABG pH (7.35-7.45) ABG Total CO2 (22-28) mmol/L ABG O2 Saturation (95-98) % ABG O2 Content (15-23) ML/dL ABG Base Excess (-2.0-3.0) mmol/L ABG Hemoglobin (11.7-17.4) g/dL ABG Carboxyhemoglobin (0.5-1.5) % POC ABG HHb (Measured) (0.0-5.0) % ABG Methemoglobin (0.0-3.0) % ABG O2 Capacity (16-24) mL/dL [place] Test A-a O2 Difference mm/Hg Hgb O2 Saturation (95.0-98.0) % Vent Mode Mechanical Rate FiO2 % Tidal Volume PEEP Sodium (132-148) mmol/l Potassium (3.6-5.0) MMOL/L Chloride (98-107) mmol/L Carbon Dioxide (22-30) mmol/L Anion Gap (10-20) BUN (9-20) mg/dl Creatinine (0.8-1.5) mg/dl Est GFR ( Amer) Est GFR (Non-Af Amer) POC Glucose (mg/dL) 254 H (65-110) mg/dL Random Glucose (75-110) mg/dL Calcium (8.4-10.2) mg/dL Phosphorus (2.5-4.5) mg/dl Magnesium (1.6-2.3) MG/DL Total Bilirubin (0.2-1.3) mg/dl AST (17-59) U/L ALT (21-72) U/L Alkaline Phosphatase (38-126) U/L Ammonia (9-33) umol/L Total Protein (6.3-8.2) G/DL Albumin (3.5-5.0) g/dL Globulin (2.2-3.9) gm/dL Albumin/Globulin Ratio (1.0-2.1) Urine Osmolality (300-1000) mosm/kg Ur Random Creatinine mg/dL U Random Total Protein (0.0-12.0) mg/dL Ur Random Sodium mmol/L Laboratory Results - last 24 hr 01/14/19 01/14/19 01/15/19 16:55 21:23 04:43 WBC RBC Hgb Hct MCV MCH MCHC RDW Plt Count pCO2 31 L pO2 90 HCO3 24.6 ABG pH 7.47 H ABG Total CO2 23.6 ABG O2 Saturation 99.2 H ABG O2 Content 16.2 ABG Base Excess -0.4 ABG Hemoglobin 11.9 ABG Carboxyhemoglobin 2.1 H POC ABG HHb (Measured) 0.8 ABG Methemoglobin 1.0 ABG O2 Capacity 16.3 Lupillo Test Yes A-a O2 Difference 85.0 Hgb O2 Saturation 96.2 Vent Mode A/c Mechanical Rate 10 FiO2 30.0 Tidal Volume 400 PEEP 5 Sodium Potassium Chloride Carbon Dioxide Anion Gap BUN Creatinine Est GFR ( Amer) Est GFR (Non-Af Amer) POC Glucose (mg/dL) 254 H 254 H Random Glucose Calcium Phosphorus Magnesium Total Bilirubin AST ALT Alkaline Phosphatase Ammonia Total Protein Albumin Globulin Albumin/Globulin Ratio Urine Osmolality Ur Random Creatinine U Random Total Protein Ur Random Sodium 01/15/19 01/15/19 01/15/19 04:45 04:45 05:09 WBC 9.4 RBC 3.04 L Hgb 11.6 L Hct 33.6 L MCV 110.6 H MCH 38.3 H MCHC 34.6 RDW 17.8 H Plt Count 57 L pCO2 pO2 HCO3 ABG pH ABG Total CO2 ABG O2 Saturation ABG O2 Content ABG Base Excess ABG Hemoglobin ABG Carboxyhemoglobin POC ABG HHb (Measured) ABG Methemoglobin ABG O2 Capacity [place] Test A-a O2 Difference Hgb O2 Saturation Vent Mode Mechanical Rate FiO2 Tidal Volume PEEP Sodium 129 L Potassium 5.1 H Chloride 100 Carbon Dioxide 20 L Anion Gap 14 BUN 105 H* Creatinine 1.4 Est GFR ( Amer) > 60 Est GFR (Non-Af Amer) 50 POC Glucose (mg/dL) 241 H Random Glucose 232 H Calcium 7.9 L Phosphorus Magnesium Total Bilirubin AST ALT Alkaline Phosphatase Ammonia Total Protein Albumin Globulin Albumin/Globulin Ratio Urine Osmolality Ur Random Creatinine U Random Total Protein Ur Random Sodium 01/15/19 01/15/19 01/15/19 11:04 13:08 14:36 WBC RBC Hgb Hct MCV MCH MCHC RDW Plt Count pCO2 pO2 HCO3 ABG pH ABG Total CO2 ABG O2 Saturation ABG O2 Content ABG Base Excess ABG Hemoglobin ABG Carboxyhemoglobin POC ABG HHb (Measured) ABG Methemoglobin ABG O2 Capacity [place] Test A-a O2 Difference Hgb O2 Saturation Vent Mode Mechanical Rate FiO2 Tidal Volume PEEP Sodium 132 Potassium 5.0 Chloride 102 Carbon Dioxide 24 Anion Gap 11 BUN 107 H* Creatinine 1.5 Est GFR ( Amer) 56 Est GFR (Non-Af Amer) 46 POC Glucose (mg/dL) 269 H Random Glucose 232 H Calcium 8.5 Phosphorus 4.0 Magnesium 3.9 H Total Bilirubin 2.4 H AST 80 H D ALT 59 Alkaline Phosphatase 289 H D Ammonia Total Protein 5.7 L Albumin 2.2 L Globulin 3.5 Albumin/Globulin Ratio 0.6 L Urine Osmolality 504 Ur Random Creatinine 89.9 U Random Total Protein 12.0 Ur Random Sodium < 5 01/15/19 14:45 WBC RBC Hgb Hct MCV MCH MCHC RDW Plt Count pCO2 pO2 HCO3 ABG pH ABG Total CO2 ABG O2 Saturation ABG O2 Content ABG Base Excess ABG Hemoglobin ABG Carboxyhemoglobin POC ABG HHb (Measured) ABG Methemoglobin ABG O2 Capacity [place]up[place] Test A-a O2 Difference Hgb O2 Saturation Vent Mode Mechanical Rate FiO2 Tidal Volume PEEP Sodium Potassium Chloride Carbon Dioxide Anion Gap BUN Creatinine Est GFR ( Amer) Est GFR (Non-Af Amer) POC Glucose (mg/dL) Random Glucose Calcium Phosphorus Magnesium Total Bilirubin AST ALT Alkaline Phosphatase Ammonia 222 H* Total Protein Albumin Globulin Albumin/Globulin Ratio Urine Osmolality Ur Random Creatinine U Random Total Protein Ur Random Sodium Radiology Impressions: Radiology Impressions Chest X-Ray 01/14/19 09:16 IMPRESSION: Likely increased atelectasis in the retrocardiac left base though pneumonia is not completely excluded. Diminishing linear atelectasis right base. ET and nasogastric tubes not significantly changed in position. Chest X-Ray 01/15/19 06:00 IMPRESSION: Atelectasis favored over pneumonia left base with linear atelectasis identified at the medial right base. Diminished pulmonary volumes noted bilaterally. No pulmonary vascular congestion identified. Fingerstick Blood Sugar Results: 269 Review of Systems - Review of Systems Review of Systems: Unable to perform ROS b/c patient is intubated. Assessment/Plan (1) Acute respiratory failure Current Visit: Yes Status: Acute Priority: High Comment: Patient orally intubated and mechanically ventilated due to altered mental status from hepatic encephalopathy and worsening hyperammonemia Continue lactulose 20 gm q4h and rifaximin 550 mg BID Frequent neuro check Vent weaning to be started when mental status improves Maintain aspiration precaution Daily chest x-ray and ABG while intubated Tube feeding rate adjusted after discussion with certified surgical first assistant. No saline flash for 24 hrs per nephro recommendation. (2) Hepatic encephalopathy Current Visit: Yes Status: Acute Priority: High Comment: Has low grade fever today Start Vancomycin and Cefepime in renal dose f/u CT abdomen and pelvis F/U CT head F/U blood culture (3) NIRAJ (acute kidney injury) Current Visit: Yes Status: Acute Comment: f/u AM labs Avoid nephrotoxic agents (4) Hyperammonemia Current Visit: Yes Status: Acute Priority: High Comment: c/w lactulose and rifaximin (5) Hyponatremia Current Visit: Yes Status: Acute Comment: It Systems Engineer Dr. banda on board -f/u AM labs (6) Thrombocytopenia Current Visit: Yes Status: Acute (7) DM type 2 (diabetes mellitus, type 2) Current Visit: No Status: Acute (8) Altered mental status Current Visit: Yes Status: Acute Priority: High Comment: f/u head CT <EberfDarrick M - Last Filed: 01/15/19 17:28> CCU Objective - Vital Signs / Intake & Output Vital Signs (Last 4 hours): Vital Signs Temp Pulse Resp BP Pulse Ox 04/02/19 16:26 84 121/49 L 01/15/19 16:00 100.5 F H 84 25 H 121/49 L 97 01/15/19 14:00 83 18 126/49 L 97 Intake and Output (Last 8hrs): Intake & Output 01/15/19 01/15/19 01/15/19 06:59 14:59 22:59 Intake Total 875 740 110 Output Total 2 300 Balance 873 440 110 Weight 214 lb Intake: Tube Feeding 495 440 110 Free Water Flush 380 300 Output: Urine 300 Urine, Voided 300 Urine/Stool Mix 2 Other: # Voids Urethral (Howe) 1 # Bowel Movements 1 - Medications Active Medications: Active Medications Generic Name Dose Route Start Last Admin Trade Name Freq PRN Reason Stop Dose Admin Carvedilol 6.25 mg 01/06/19 21:00 01/15/19 08:50 Coreg NG 6.25 mg Q12 JOANNA Administration Cilostazol 50 mg 01/06/19 10:30 01/07/19 10:22 Pletal PO Not Given Q12 JOANNA Folic Acid 1 mg 01/10/19 09:00 01/15/19 08:50 Folic Acid GT 1 mg DAILY JOANNA Administration Hydralazine HCl 25 mg 01/12/19 13:00 01/15/19 16:26 Apresoline PO 25 mg TID JOANNA Administration Vancomycin HCl 750 mg/ Sodium 250 mls @ 166.667 mls/hr 01/16/19 16:50 Chloride IVPB DAILY JOANNA Protocol Cefepime HCl 1 gm/ Sodium 100 mls @ 100 mls/hr 01/15/19 17:00 Chloride IVPB DAILY JOANNA Protocol Insulin Detemir 15 units 01/14/19 09:00 01/15/19 08:50 Levemir SC 15 units DAILY JOANNA Administration Insulin Human Regular 0 units 01/06/19 11:30 01/15/19 17:05 Humulin R SC 3 unit Q6H JOANNA Administration Protocol Lactulose 20 gm 01/13/19 06:15 01/15/19 14:25 Enulose GT 20 gm Q4H JOANNA Administration Levothyroxine Sodium 50 mcg 01/09/19 06:30 01/15/19 05:30 Synthroid PO 50 mcg DAILY@0630 JOANNA Administration Pantoprazole Sodium 40 mg 01/07/19 13:15 01/15/19 08:51 Protonix Susp NG 40 mg DAILY JOANNA Administration Rifaximin 550 mg 01/11/19 17:00 01/15/19 16:26 Xifaxan PO 550 mg BID JOANNA Administration Protocol Thiamine HCl 100 mg 01/10/19 09:00 01/15/19 08:51 Vitamin B1 Tab GT 100 mg DAILY JOANNA Administration - Patient Studies Lab Studies: Lab Studies 01/15/19 01/15/19 01/15/19 Range/Units 16:36 14:45 14:36 WBC (4.8-10.8) K/uL RBC (4.40-5.90) Mil/uL Hgb (12.0-18.0) g/dL Hct (35.0-51.0) % MCV (80.0-94.0) fl MCH (27.0-31.0) pg MCHC (33.0-37.0) g/dL RDW (11.5-14.5) % Plt Count (130-400) K/uL pCO2 (35-45) mm/Hg pO2 (80-100) mm/Hg HCO3 (21-28) mmol/L ABG pH (7.35-7.45) ABG Total CO2 (22-28) mmol/L ABG O2 Saturation (95-98) % ABG O2 Content (15-23) ML/dL ABG Base Excess (-2.0-3.0) mmol/L ABG Hemoglobin (11.7-17.4) g/dL ABG Carboxyhemoglobin (0.5-1.5) % POC ABG HHb (Measured) (0.0-5.0) % ABG Methemoglobin (0.0-3.0) % ABG O2 Capacity (16-24) mL/dL [place]up[place] Test A-a O2 Difference mm/Hg Hgb O2 Saturation (95.0-98.0) % Vent Mode Mechanical Rate FiO2 % Tidal Volume PEEP Sodium (132-148) mmol/l Potassium (3.6-5.0) MMOL/L Chloride (98-107) mmol/L Carbon Dioxide (22-30) mmol/L Anion Gap (10-20) BUN (9-20) mg/dl Creatinine (0.8-1.5) mg/dl Est GFR ( Amer) Est GFR (Non-Af Amer) POC Glucose (mg/dL) 259 H (65-110) mg/dL Random Glucose (75-110) mg/dL Calcium (8.4-10.2) mg/dL Phosphorus (2.5-4.5) mg/dl Magnesium (1.6-2.3) MG/DL Total Bilirubin (0.2-1.3) mg/dl AST (17-59) U/L ALT (21-72) U/L Alkaline Phosphatase (38-126) U/L Ammonia 222 H* (9-33) umol/L Total Protein (6.3-8.2) G/DL Albumin (3.5-5.0) g/dL Globulin (2.2-3.9) gm/dL Albumin/Globulin Ratio (1.0-2.1) Urine Osmolality 504 (300-1000) mosm/kg Ur Random Creatinine 89.9 mg/dL U Random Total Protein 12.0 (0.0-12.0) mg/dL Ur Random Sodium < 5 mmol/L 01/15/19 01/15/19 01/15/19 Range/Units 13:08 11:04 05:09 WBC (4.8-10.8) K/uL RBC (4.40-5.90) Mil/uL Hgb (12.0-18.0) g/dL Hct (35.0-51.0) % MCV (80.0-94.0) fl MCH (27.0-31.0) pg MCHC (33.0-37.0) g/dL RDW (11.5-14.5) % Plt Count (130-400) K/uL pCO2 (35-45) mm/Hg pO2 (80-100) mm/Hg HCO3 (21-28) mmol/L ABG pH (7.35-7.45) ABG Total CO2 (22-28) mmol/L ABG O2 Saturation (95-98) % ABG O2 Content (15-23) ML/dL ABG Base Excess (-2.0-3.0) mmol/L ABG Hemoglobin (11.7-17.4) g/dL ABG Carboxyhemoglobin (0.5-1.5) % POC ABG HHb (Measured) (0.0-5.0) % ABG Methemoglobin (0.0-3.0) % ABG O2 Capacity (16-24) mL/dL [place] Test A-a O2 Difference mm/Hg Hgb O2 Saturation (95.0-98.0) % Vent Mode Mechanical Rate FiO2 % Tidal Volume PEEP Sodium 132 (132-148) mmol/l Potassium 5.0 (3.6-5.0) MMOL/L Chloride 102 (98-107) mmol/L Carbon Dioxide 24 (22-30) mmol/L Anion Gap 11 (10-20) BUN 107 H* (9-20) mg/dl Creatinine 1.5 (0.8-1.5) mg/dl Est GFR ( Amer) 56 Est GFR (Non-Af Amer) 46 POC Glucose (mg/dL) 269 H 241 H (65-110) mg/dL Random Glucose 232 H (75-110) mg/dL Calcium 8.5 (8.4-10.2) mg/dL Phosphorus 4.0 (2.5-4.5) mg/dl Magnesium 3.9 H (1.6-2.3) MG/DL Total Bilirubin 2.4 H (0.2-1.3) mg/dl AST 80 H D (17-59) U/L ALT 59 (21-72) U/L Alkaline Phosphatase 289 H D (38-126) U/L Ammonia (9-33) umol/L Total Protein 5.7 L (6.3-8.2) G/DL Albumin 2.2 L (3.5-5.0) g/dL Globulin 3.5 (2.2-3.9) gm/dL Albumin/Globulin Ratio 0.6 L (1.0-2.1) Urine Osmolality (300-1000) mosm/kg Ur Random Creatinine mg/dL U Random Total Protein (0.0-12.0) mg/dL Ur Random Sodium mmol/L 01/15/19 01/15/19 01/15/19 Range/Units 04:45 04:45 04:43 WBC 9.4 (4.8-10.8) K/uL RBC 3.04 L (4.40-5.90) Mil/uL Hgb 11.6 L (12.0-18.0) g/dL Hct 33.6 L (35.0-51.0) % MCV 110.6 H (80.0-94.0) fl MCH 38.3 H (27.0-31.0) pg MCHC 34.6 (33.0-37.0) g/dL RDW 17.8 H (11.5-14.5) % Plt Count 57 L (130-400) K/uL pCO2 31 L (35-45) mm/Hg pO2 90 (80-100) mm/Hg HCO3 24.6 (21-28) mmol/L ABG pH 7.47 H (7.35-7.45) ABG Total CO2 23.6 (22-28) mmol/L ABG O2 Saturation 99.2 H (95-98) % ABG O2 Content 16.2 (15-23) ML/dL ABG Base Excess -0.4 (-2.0-3.0) mmol/L ABG Hemoglobin 11.9 (11.7-17.4) g/dL ABG Carboxyhemoglobin 2.1 H (0.5-1.5) % POC ABG HHb (Measured) 0.8 (0.0-5.0) % ABG Methemoglobin 1.0 (0.0-3.0) % ABG O2 Capacity 16.3 (16-24) mL/dL Lupillo Test Yes A-a O2 Difference 85.0 mm/Hg Hgb O2 Saturation 96.2 (95.0-98.0) % Vent Mode A/c Mechanical Rate 10 FiO2 30.0 % Tidal Volume 400 PEEP 5 Sodium 129 L (132-148) mmol/l Potassium 5.1 H (3.6-5.0) MMOL/L Chloride 100 (98-107) mmol/L Carbon Dioxide 20 L (22-30) mmol/L Anion Gap 14 (10-20) BUN 105 H* (9-20) mg/dl Creatinine 1.4 (0.8-1.5) mg/dl Est GFR ( Amer) > 60 Est GFR (Non-Af Amer) 50 POC Glucose (mg/dL) (65-110) mg/dL Random Glucose 232 H (75-110) mg/dL Calcium 7.9 L (8.4-10.2) mg/dL Phosphorus (2.5-4.5) mg/dl Magnesium (1.6-2.3) MG/DL Total Bilirubin (0.2-1.3) mg/dl AST (17-59) U/L ALT (21-72) U/L Alkaline Phosphatase (38-126) U/L Ammonia (9-33) umol/L Total Protein (6.3-8.2) G/DL Albumin (3.5-5.0) g/dL Globulin (2.2-3.9) gm/dL Albumin/Globulin Ratio (1.0-2.1) Urine Osmolality (300-1000) mosm/kg Ur Random Creatinine mg/dL U Random Total Protein (0.0-12.0) mg/dL Ur Random Sodium mmol/L 01/14/19 Range/Units 21:23 WBC (4.8-10.8) K/uL RBC (4.40-5.90) Mil/uL Hgb (12.0-18.0) g/dL Hct (35.0-51.0) % MCV (80.0-94.0) fl MCH (27.0-31.0) pg MCHC (33.0-37.0) g/dL RDW (11.5-14.5) % Plt Count (130-400) K/uL pCO2 (35-45) mm/Hg pO2 (80-100) mm/Hg HCO3 (21-28) mmol/L ABG pH (7.35-7.45) ABG Total CO2 (22-28) mmol/L ABG O2 Saturation (95-98) % ABG O2 Content (15-23) ML/dL ABG Base Excess (-2.0-3.0) mmol/L ABG Hemoglobin (11.7-17.4) g/dL ABG Carboxyhemoglobin (0.5-1.5) % POC ABG HHb (Measured) (0.0-5.0) % ABG Methemoglobin (0.0-3.0) % ABG O2 Capacity (16-24) mL/dL Lupillo Test A-a O2 Difference mm/Hg Hgb O2 Saturation (95.0-98.0) % Vent Mode Mechanical Rate FiO2 % Tidal Volume PEEP Sodium (132-148) mmol/l Potassium (3.6-5.0) MMOL/L Chloride (98-107) mmol/L Carbon Dioxide (22-30) mmol/L Anion Gap (10-20) BUN (9-20) mg/dl Creatinine (0.8-1.5) mg/dl Est GFR ( Amer) Est GFR (Non-Af Amer) POC Glucose (mg/dL) 254 H (65-110) mg/dL Random Glucose (75-110) mg/dL Calcium (8.4-10.2) mg/dL Phosphorus (2.5-4.5) mg/dl Magnesium (1.6-2.3) MG/DL Total Bilirubin (0.2-1.3) mg/dl AST (17-59) U/L ALT (21-72) U/L Alkaline Phosphatase (38-126) U/L Ammonia (9-33) umol/L Total Protein (6.3-8.2) G/DL Albumin (3.5-5.0) g/dL Globulin (2.2-3.9) gm/dL Albumin/Globulin Ratio (1.0-2.1) Urine Osmolality (300-1000) mosm/kg Ur Random Creatinine mg/dL U Random Total Protein (0.0-12.0) mg/dL Ur Random Sodium mmol/L Laboratory Results - last 24 hr 01/14/19 01/15/19 01/15/19 21:23 04:43 04:45 WBC 9.4 RBC 3.04 L Hgb 11.6 L Hct 33.6 L MCV 110.6 H MCH 38.3 H MCHC 34.6 RDW 17.8 H Plt Count 57 L pCO2 31 L pO2 90 HCO3 24.6 ABG pH 7.47 H ABG Total CO2 23.6 ABG O2 Saturation 99.2 H ABG O2 Content 16.2 ABG Base Excess -0.4 ABG Hemoglobin 11.9 ABG Carboxyhemoglobin 2.1 H POC ABG HHb (Measured) 0.8 ABG Methemoglobin 1.0 ABG O2 Capacity 16.3 Lup[place] Test Yes A-a O2 Difference 85.0 Hgb O2 Saturation 96.2 Vent Mode A/c Mechanical Rate 10 FiO2 30.0 Tidal Volume 400 PEEP 5 Sodium Potassium Chloride Carbon Dioxide Anion Gap BUN Creatinine Est GFR ( Amer) Est GFR (Non-Af Amer) POC Glucose (mg/dL) 254 H Random Glucose Calcium Phosphorus Magnesium Total Bilirubin AST ALT Alkaline Phosphatase Ammonia Total Protein Albumin Globulin Albumin/Globulin Ratio Urine Osmolality Ur Random Creatinine U Random Total Protein Ur Random Sodium 01/15/19 01/15/19 01/15/19 04:45 05:09 11:04 WBC RBC Hgb Hct MCV MCH MCHC RDW Plt Count pCO2 pO2 HCO3 ABG pH ABG Total CO2 ABG O2 Saturation ABG O2 Content ABG Base Excess ABG Hemoglobin ABG Carboxyhemoglobin POC ABG HHb (Measured) ABG Methemoglobin ABG O2 Capacity [place] Test A-a O2 Difference Hgb O2 Saturation Vent Mode Mechanical Rate FiO2 Tidal Volume PEEP Sodium 129 L Potassium 5.1 H Chloride 100 Carbon Dioxide 20 L Anion Gap 14 BUN 105 H* Creatinine 1.4 Est GFR ( Amer) > 60 Est GFR (Non-Af Amer) 50 POC Glucose (mg/dL) 241 H 269 H Random Glucose 232 H Calcium 7.9 L Phosphorus Magnesium Total Bilirubin AST ALT Alkaline Phosphatase Ammonia Total Protein Albumin Globulin Albumin/Globulin Ratio Urine Osmolality Ur Random Creatinine U Random Total Protein Ur Random Sodium 01/15/19 01/15/19 01/15/19 13:08 14:36 14:45 WBC RBC Hgb Hct MCV MCH MCHC RDW Plt Count pCO2 pO2 HCO3 ABG pH ABG Total CO2 ABG O2 Saturation ABG O2 Content ABG Base Excess ABG Hemoglobin ABG Carboxyhemoglobin POC ABG HHb (Measured) ABG Methemoglobin ABG O2 Capacity [place] Test A-a O2 Difference Hgb O2 Saturation Vent Mode Mechanical Rate FiO2 Tidal Volume PEEP Sodium 132 Potassium 5.0 Chloride 102 Carbon Dioxide 24 Anion Gap 11 BUN 107 H* Creatinine 1.5 Est GFR ( Amer) 56 Est GFR (Non-Af Amer) 46 POC Glucose (mg/dL) Random Glucose 232 H Calcium 8.5 Phosphorus 4.0 Magnesium 3.9 H Total Bilirubin 2.4 H AST 80 H D ALT 59 Alkaline Phosphatase 289 H D Ammonia 222 H* Total Protein 5.7 L Albumin 2.2 L Globulin 3.5 Albumin/Globulin Ratio 0.6 L Urine Osmolality 504 Ur Random Creatinine 89.9 U Random Total Protein 12.0 Ur Random Sodium < 5 01/15/19 16:36 WBC RBC Hgb Hct MCV MCH MCHC RDW Plt Count pCO2 pO2 HCO3 ABG pH ABG Total CO2 ABG O2 Saturation ABG O2 Content ABG Base Excess ABG Hemoglobin ABG Carboxyhemoglobin POC ABG HHb (Measured) ABG Methemoglobin ABG O2 Capacity [place] Test A-a O2 Difference Hgb O2 Saturation Vent Mode Mechanical Rate FiO2 Tidal Volume PEEP Sodium Potassium Chloride Carbon Dioxide Anion Gap BUN Creatinine Est GFR ( Amer) Est GFR (Non-Af Amer) POC Glucose (mg/dL) 259 H Random Glucose Calcium Phosphorus Magnesium Total Bilirubin AST ALT Alkaline Phosphatase Ammonia Total Protein Albumin Globulin Albumin/Globulin Ratio Urine Osmolality Ur Random Creatinine U Random Total Protein Ur Random Sodium Radiology Impressions: Radiology Impressions Chest X-Ray 01/14/19 09:16 IMPRESSION: Likely increased atelectasis in the retrocardiac left base though pneumonia is not completely excluded. Diminishing linear atelectasis right base. ET and nasogastric tubes not significantly changed in position. Chest X-Ray 01/15/19 06:00 IMPRESSION: Atelectasis favored over pneumonia left base with linear atelectasis identified at the medial right base. Diminished pulmonary volumes noted bilaterally. No pulmonary vascular congestion identified. Assessment/Plan (1) Acute respiratory failure Current Visit: Yes Status: Acute Priority: High Comment: Patient orally intubated and mechanically ventilated due to altered mental status from hepatic encephalopathy and worsening hyperammonemia Continue lactulose 20 gm q4h and rifaximin 550 mg BID Frequent neuro check Vent weaning to be started when mental status improves Maintain aspiration precaution Daily chest x-ray and ABG while intubated Tube feeding rate adjusted after discussion with certified surgical first assistant. No saline flash for 24 hrs per nephro recommendation. (2) Hepatic encephalopathy Current Visit: Yes Status: Acute Priority: High Comment: Has low grade fever today Start Vancomycin and Cefepime in renal dose f/u CT abdomen and pelvis F/U CT head F/U blood culture (3) Alcoholic cirrhosis of liver Current Visit: Yes Status: Acute Priority: High (4) Hyperammonemia Current Visit: Yes Status: Acute Priority: High Comment: c/w lactulose and rifaximin (5) Thrombocytopenia Current Visit: Yes Status: Acute Priority: High Comment: Morning labs reviewed platelet count 49K, no signs of active bleeding, hemoglobin/Hct stable Attending/Attestation - Attestation I have personally seen and examined this patient.: Yes I have fully participated in the care of the patient.: Yes I have reviewed all pertinent clinical information: Yes Notes (Text): 01/15/19 17:28 Today: Tuesday, January 15, 2019 The patient was Seen/interviewed and examined by me at the bedside during ICU round, Medical records reviewed and Management issues were discussed and formulated with the house staff. Events reviewed I have reviewed all the relevant clinical, laboratory, hemodynamic, radiographic data and medications Pain issues, skin care, head of the bed elevation, glycemic control were addressed. I concur with resident's assessment and plan of care as transcribed in Dr. Romeo note.
[2019-01-15] MEDS ORDERED: Iohexol 240 (50 ml) PO ONE (17:31)
[2019-01-15] MEDS ORDERED: Iohexol 240 (50 ml) ONE (17:46)
[2019-01-15] MEDS: Cefepime 1 GM in Sodium Chloride 0.9% 100 ML IVPB SCH (18:06)
--- NOTE | 2019-01-16 00:28 | CP.PCM.PN ---
Subjective - Date & Time of Evaluation Date of Evaluation: 01/15/19 Time of Evaluation: 20:00 - Subjective Subjective: Vented Objective - Vital Signs/Intake and Output Vital Signs (last 24 hours): Temp Pulse Resp BP Pulse Ox 99.9 F H 80 24 112/47 L 98 01/15/19 23:00 01/16/19 00:00 01/16/19 00:00 01/16/19 00:00 01/16/19 00:00 Intake and Output: 01/15/19 01/16/19 18:59 06:59 Intake Total 905 50 Output Total 600 Balance 305 50 - Medications Medications: Current Medications Carvedilol (Coreg) 6.25 mg NG Q12 [facility] Last Admin: 01/15/19 20:59 Dose: Not Given Cilostazol (Pletal) 50 mg PO Q12 [facility] Last Admin: 01/07/19 10:22 Dose: Not Given Folic Acid (Folic Acid) 1 mg GT DAILY [facility] Last Admin: 01/15/19 08:50 Dose: 1 mg Hydralazine HCl (Apresoline) 25 mg PO TID [facility] Last Admin: 01/15/19 16:26 Dose: 25 mg Vancomycin HCl 750 mg/ Sodium (Chloride) 250 mls @ 166.667 mls/hr IVPB DAILY [facility]; Protocol Cefepime HCl 1 gm/ Sodium (Chloride) 100 mls @ 100 mls/hr IVPB DAILY [facility]; Protocol Last Admin: 01/15/19 18:06 Dose: 100 mls/hr Insulin Detemir (Levemir) 15 units SC DAILY [facility] Last Admin: 01/15/19 08:50 Dose: 15 units Insulin Human Regular (Humulin R) 0 units SC Q6H [facility]; Protocol Last Admin: 01/15/19 17:05 Dose: 3 unit Lactulose (Enulose) 20 gm GT Q4H [facility] Last Admin: 01/15/19 21:20 Dose: 20 gm Levothyroxine Sodium (Synthroid) 50 mcg PO DAILY@0630 [facility] Last Admin: 01/15/19 05:30 Dose: 50 mcg Pantoprazole Sodium (Protonix Susp) 40 mg NG DAILY [facility] Last Admin: 01/15/19 08:51 Dose: 40 mg Rifaximin (Xifaxan) 550 mg PO BID [facility]; Protocol Last Admin: 01/15/19 16:26 Dose: 550 mg Thiamine HCl (Vitamin B1 Tab) 100 mg GT DAILY [facility] Last Admin: 01/15/19 08:51 Dose: 100 mg - Labs Labs: 01/15/19 04:45 01/15/19 13:08 PT 16.1 Seconds (9.8-13.1) H 01/11/19 05:33 INR 1.4 01/11/19 05:33 APTT 32.9 Seconds (25.6-37.1) 01/11/19 05:33 Assessment and Plan (1) Thrombocytopenia Assessment & Plan: liver cirrhosis and splenic sequestration Status: Acute (2) Coagulopathy Assessment & Plan: liver disease nutritional component vit k and FFP PRN Status: Acute (3) Liver mass Assessment & Plan: ? HCC outpatient f/u with primary technical sales advisor Status: Acute
--- NOTE | 2019-01-16 01:31 | CP.PCM.PN ---
Subjective - Date & Time of Evaluation Date of Evaluation: 01/15/19 Time of Evaluation: 18:00 - Subjective Subjective: Seen and examined at the bedside. Patient continues to be intubated. Patient on sedation currently. BUN and ammonia level increased. Hyponatremia detected. Nephrology consulted. Patient currently on lactulose every 4 hours round-the- clock. Sputum culture showed Pseudomonas and Klebsiella sensitive to Cipro plan. Objective - Vital Signs/Intake and Output Vital Signs (last 24 hours): Temp Pulse Resp BP Pulse Ox 99.7 F H 80 24 112/47 L 98 01/16/19 00:00 01/16/19 00:00 01/16/19 00:00 01/16/19 00:00 01/16/19 00:00 Intake and Output: 01/15/19 01/16/19 18:59 06:59 Intake Total 905 50 Output Total 600 Balance 305 50 - Medications Medications: Current Medications Carvedilol (Coreg) 6.25 mg NG Q12 [facility] Last Admin: 01/15/19 20:59 Dose: Not Given Cilostazol (Pletal) 50 mg PO Q12 [facility] Last Admin: 01/07/19 10:22 Dose: Not Given Folic Acid (Folic Acid) 1 mg GT DAILY [facility] Last Admin: 01/15/19 08:50 Dose: 1 mg Hydralazine HCl (Apresoline) 25 mg PO TID [facility] Last Admin: 01/15/19 16:26 Dose: 25 mg Vancomycin HCl 750 mg/ Sodium (Chloride) 250 mls @ 166.667 mls/hr IVPB DAILY [facility]; Protocol Cefepime HCl 1 gm/ Sodium (Chloride) 100 mls @ 100 mls/hr IVPB DAILY [facility]; Protocol Last Admin: 01/15/19 18:06 Dose: 100 mls/hr Insulin Detemir (Levemir) 15 units SC DAILY [facility] Last Admin: 01/15/19 08:50 Dose: 15 units Insulin Human Regular (Humulin R) 0 units SC Q6H [facility]; Protocol Last Admin: 01/15/19 23:00 Dose: Not Given Lactulose (Enulose) 20 gm GT Q4H [facility] Last Admin: 01/15/19 21:20 Dose: 20 gm Levothyroxine Sodium (Synthroid) 50 mcg PO DAILY@0630 [facility] Last Admin: 01/15/19 05:30 Dose: 50 mcg Pantoprazole Sodium (Protonix Susp) 40 mg NG DAILY [facility] Last Admin: 01/15/19 08:51 Dose: 40 mg Rifaximin (Xifaxan) 550 mg PO BID [facility]; Protocol Last Admin: 01/15/19 16:26 Dose: 550 mg Thiamine HCl (Vitamin B1 Tab) 100 mg GT DAILY [facility] Last Admin: 01/15/19 08:51 Dose: 100 mg - Labs Labs: 01/15/19 04:45 01/15/19 13:08 PT 16.1 Seconds (9.8-13.1) H 01/11/19 05:33 INR 1.4 01/11/19 05:33 APTT 32.9 Seconds (25.6-37.1) 01/11/19 05:33 Assessment and Plan (1) Acute respiratory failure Assessment & Plan: MV Status: Acute (2) Altered mental status Status: Acute (3) Alcoholic cirrhosis of liver Status: Acute (4) Hepatic encephalopathy Status: Acute (5) DM type 2 (diabetes mellitus, type 2) Status: Acute - Assessment and Plan (Free Text) Plan: Continue current care. Monitor Electrolytes, Azotemia and ammonia level.
[2019-01-16] MEDS: Insulin Regular 100 units/ml SC SCH ×4 (04:42→23:03)
[2019-01-16 04:58] LABS: BASO # 0.1 K/uL (0.0-0.2); BASO % 0.7 % (0.0-2.0); EOS # 0.2 K/uL (0.0-0.7); EOS % 1.7 % (0.0-4.0); HEMOGLOBIN 12.5 g/dL (12.0-18.0); LYMPH % 9.8 % (20.0-40.0); MEAN CELL VOLUME 111.5 fl (80.0-94.0); MEAN CORPUSCULAR HEMOGLOBIN 38.4 pg (27.0-31.0); MEAN CORPUSCULAR HGB CONC 34.4 g/dL (33.0-37.0); MEAN PLATELET VOLUME 11.7 fl (7.2-11.7); MONO # 1.8 K/uL (0.0-0.8); NEUT # 6.9 K/uL (1.8-7.0); NEUT % 69.8 % (50.0-75.0); NRBC % 0.1 % (0.0-0.0); PLATELET COUNT 82 K/uL (130-400); RBC 3.25 Mil/uL (4.40-5.90); RED CELL DISTRIBUTION WIDTH 17.8 % (11.5-14.5); WHITE BLOOD COUNT 9.9 K/uL (4.8-10.8)
[2019-01-16 05:08] LABS: ALB/GLOB RATIO 0.6 (1.0-2.1); ALBUMIN 2.2 g/dL (3.5-5.0); CALCIUM 8.5 mg/dL (8.4-10.2)
[2019-01-16 05:18] LABS: ABG ALLEN TEST YES; ARTERIAL BLOOD GAS HCO3 27.1 mmol/L (21-28); ARTERIAL BLOOD GAS HEMOGLOBIN 12.8 g/dL (11.7-17.4); ARTERIAL BLOOD GAS O2 CAPACITY 17.4 mL/dL (16-24); ARTERIAL BLOOD GAS O2 CONTENT 17.2 ML/dL (15-23); ARTERIAL BLOOD GAS O2 SAT 98.8 % (95-98); ARTERIAL BLOOD GAS PCO2 32 mm/Hg (35-45); ARTERIAL BLOOD GAS PH 7.51 (7.35-7.45); ARTERIAL BLOOD GAS PO2 81 mm/Hg (80-100); ARTERIAL BLOOD GAS TCO2 26.5 mmol/L (22-28)
[2019-01-16] MEDS: Levothyroxine 50 MCG TAB PO SCH (05:56)
[2019-01-16 07:31] LABS: EOSINOPHIL 2 % (0-7); LYMPHOCYTE 10 % (20-50); MONOCYTE 8 % (0-10); NEUTROPHIL 80 % (42-75); PLATELET ESTIMATE MARKEDLY DECREASED (NORMAL); TOTAL CELLS COUNTED 100
[2019-01-16 07:32] LABS: ANISOCYTOSIS SLIGHT; MICROCYTOSIS SLIGHT; OVALOCYTES SLIGHT
[2019-01-16 07:33] LABS: LARGE PLATELETS PRESENT
[2019-01-16] MEDS ORDERED: Sod Polystyrene Sulf 15 gm/60 ml Susp NG ONE (08:15)
[2019-01-16] MEDS: Insulin Detemir 100 Units/ml Inj SC SCH (09:02)
[2019-01-16] MEDS: Pantoprazole 40 mg Susp UD NG SCH (09:04)
[2019-01-16] MEDS: Cefepime 1 GM in Sodium Chloride 0.9% 100 ML IVPB SCH (09:06)
--- NOTE | 2019-01-16 10:33 | CP.CCUPN ---
<KirkSultan moni - Last Filed: 01/16/19 11:18> CCU Subjective - Physician Review Subjective (Free Text): 01/16/19 10:43 68 yo Male with PMHx of DMII, Gastritis, HTN, Hypercholesterolemia, Chronic Kidney Disease, liver cirrhosis, hepatic encephalopathy and liver malignancy was brought in to the emergency room on 01/06/19 by the family for evaluation of altered mental status, confusion and abdominal pain. Patient was initially admitted to Med/surg unit, however was transferred to the intensive care unit later in the evening for his worsening of his mental status in the setting of markedly elevated ammonia level up to 367 also overnight he received Ativan for agitation, patient was anxious getting out of bed and unsteady on his feet so Ativan was given. Patient was found to be agonal breathing shallow respiration, he was urgently intubated and mechanically ventilated. Patient was currently off sedation for several days last dose was on the midnight 2 mg of Versed and received 1 mg of Ativan yesterday morning for tachypnea and agitation. Patient seen and evaluated this morning. Remain on ventilation with vent setting PRVC/AC 10, 400, PEEP 5 with FiO2 of 30%, saturating 97% Overnight events and nurses notes reviewed. Feeding was hold last night. Patient remains sedated, barely response to painful stimulus. afebrile with stable BP (last fever 100.5 F yesterday at 1600) Sputum culture on 01/10/19 showed Pseudomonas and Klebsiella and Urine culture on grew GBS Patient had 2 BM yesterday and 4 BM last night. Ammonia level is trending down BUN continues to be elevated with worsening creatinine. CT A/P shows diffuse mesenteritis and colitis chest CT shows posterior bibasilar pneumonic consolidation. CCU Objective - Vital Signs / Intake & Output Vital Signs (Last 4 hours): Vital Signs Pulse BP 01/16/19 09:01 74 116/49 L 01/16/19 08:58 74 116/49 L Intake and Output (Last 8hrs): Intake & Output 01/15/19 01/16/19 01/16/19 22:59 06:59 14:59 Intake Total 215 60 Output Total 300 1 Balance -85 59 Weight 97.522 kg Intake: Intake, Piggyback 0 Tube Feeding 165 30 Free Water Flush 50 30 Output: Urine 300 Urethral (Howe) 300 Stool 1 Other: # Voids Urethral (Howe) 2 # Bowel Movements 1 - Physical Exam Physical Exam Limitations: Positive for: Altered Mental Status, Other (sedated, no response to verbal stimulus, barely responsive to painful stimulus. ) Head: Positive for: Atraumatic, Normocephalic Pupils: Positive for: PERRL Extroacular Muscles: Positive for: EOMI Conjunctiva: Positive for: Icteric Ears: Positive for: Normal Mouth: Positive for: Moist Mucous Membranes Nose (External): Positive for: Atraumatic Respiratory/Chest: Positive for: Clear to Auscultation, Good Air Exchange Cardiovascular: Positive for: Regular Rate and Rhythm Abdomen: Positive for: Normal Bowel Sounds. Negative for: Tenderness, Distention Upper Extremity: Positive for: Edema, Swelling (b/l upper extremities swelling and edema) Lower Extremity: Positive for: Normal Inspection Psychiatric: Negative for: Alert - Medications Active Medications: Active Medications Generic Name Dose Route Start Last Admin Trade Name Freq PRN Reason Stop Dose Admin Carvedilol 6.25 mg 01/06/19 21:00 01/16/19 09:01 Coreg NG Not Given Q12 JOANNA Cilostazol 50 mg 01/06/19 10:30 01/07/19 10:22 Pletal PO Not Given Q12 JOANNA Folic Acid 1 mg 01/10/19 09:00 01/16/19 09:01 Folic Acid GT 1 mg DAILY JOANNA Administration Hydralazine HCl 25 mg 01/12/19 13:00 01/16/19 08:58 Apresoline PO Not Given TID JOANNA Vancomycin HCl 750 mg/ Sodium 250 mls @ 166.667 mls/hr 01/16/19 16:50 Chloride IVPB DAILY JOANNA Protocol Cefepime HCl 1 gm/ Sodium 100 mls @ 100 mls/hr 01/15/19 17:00 01/16/19 09:06 Chloride IVPB 100 mls/hr DAILY JOANNA Administration Protocol Insulin Detemir 15 units 01/14/19 09:00 01/16/19 09:02 Levemir SC 15 units DAILY JOANNA Administration Insulin Human Regular 0 units 01/06/19 11:30 01/16/19 04:42 Humulin R SC 2 unit Q6H JOANNA Administration Protocol Lactulose 20 gm 01/13/19 06:15 01/16/19 05:56 Enulose GT 20 gm Q4H JOANNA Administration Levothyroxine Sodium 50 mcg 01/09/19 06:30 01/16/19 05:56 Synthroid PO 50 mcg DAILY@0630 JOANNA Administration Pantoprazole Sodium 40 mg 01/07/19 13:15 01/16/19 09:04 Protonix Susp NG 40 mg DAILY JOANNA Administration Rifaximin 550 mg 01/11/19 17:00 01/16/19 09:03 Xifaxan PO 550 mg BID JOANNA Administration Protocol Thiamine HCl 100 mg 01/10/19 09:00 01/16/19 09:04 Vitamin B1 Tab GT 100 mg DAILY JOANNA Administration - Patient Studies Lab Studies: Lab Studies 01/16/19 01/16/19 01/16/19 Range/Units 05:04 04:40 04:10 WBC (4.8-10.8) K/uL RBC (4.40-5.90) Mil/uL Hgb (12.0-18.0) g/dL Hct (35.0-51.0) % MCV (80.0-94.0) fl MCH (27.0-31.0) pg MCHC (33.0-37.0) g/dL RDW (11.5-14.5) % Plt Count (130-400) K/uL MPV (7.2-11.7) fl Neut % (Auto) (50.0-75.0) % Lymph % (Auto) (20.0-40.0) % Finney % (Auto) (0.0-10.0) % Eos % (Auto) (0.0-4.0) % Baso % (Auto) (0.0-2.0) % Neut # (Auto) (1.8-7.0) K/uL Lymph # (Auto) (1.0-4.3) K/uL Finney # (Auto) (0.0-0.8) K/uL Eos # (Auto) (0.0-0.7) K/uL Baso # (Auto) (0.0-0.2) K/uL Neutrophils % (Manual) (42-75) % Lymphocytes % (Manual) (20-50) % Monocytes % (Manual) (0-10) % Eosinophils % (Manual) (0-7) % Platelet Estimate (NORMAL) Large Platelets Anisocytosis (manual) Microcytosis (manual) Ovalocytes pCO2 32 L (35-45) mm/Hg pO2 81 (80-100) mm/Hg HCO3 27.1 (21-28) mmol/L ABG pH 7.51 H (7.35-7.45) ABG Total CO2 26.5 (22-28) mmol/L ABG O2 Saturation 98.8 H (95-98) % ABG O2 Content 17.2 (15-23) ML/dL ABG Base Excess 2.9 (-2.0-3.0) mmol/L ABG Hemoglobin 12.8 (11.7-17.4) g/dL ABG Carboxyhemoglobin 2.4 H (0.5-1.5) % POC ABG HHb (Measured) 1.2 (0.0-5.0) % ABG Methemoglobin 1.0 (0.0-3.0) % ABG O2 Capacity 17.4 (16-24) mL/dL Lupillo Test Yes A-a O2 Difference 164.0 mm/Hg Hgb O2 Saturation 95.4 (95.0-98.0) % Mechanical Rate 12 FiO2 40.0 % Tidal Volume 450 PEEP 5 Sodium (132-148) mmol/l Potassium (3.6-5.0) MMOL/L Chloride (98-107) mmol/L Carbon Dioxide (22-30) mmol/L Anion Gap (10-20) BUN (9-20) mg/dl Creatinine (0.8-1.5) mg/dl Est GFR ( Amer) Est GFR (Non-Af Amer) POC Glucose (mg/dL) 212 H (65-110) mg/dL Random Glucose (75-110) mg/dL Calcium (8.4-10.2) mg/dL Phosphorus (2.5-4.5) mg/dl Magnesium (1.6-2.3) MG/DL Total Bilirubin (0.2-1.3) mg/dl AST (17-59) U/L ALT (21-72) U/L Alkaline Phosphatase (38-126) U/L Ammonia 147 H D (9-33) umol/L Total Protein (6.3-8.2) G/DL Albumin (3.5-5.0) g/dL Globulin (2.2-3.9) gm/dL Albumin/Globulin Ratio (1.0-2.1) Urine Osmolality (300-1000) mosm/kg Ur Random Creatinine mg/dL U Random Total Protein (0.0-12.0) mg/dL Ur Random Sodium mmol/L 01/16/19 01/16/19 01/15/19 Range/Units 04:10 04:10 21:39 WBC 9.9 (4.8-10.8) K/uL RBC 3.25 L (4.40-5.90) Mil/uL Hgb 12.5 (12.0-18.0) g/dL Hct 36.2 (35.0-51.0) % MCV 111.5 H (80.0-94.0) fl MCH 38.4 H (27.0-31.0) pg MCHC 34.4 (33.0-37.0) g/dL RDW 17.8 H (11.5-14.5) % Plt Count 82 L D (130-400) K/uL MPV 11.7 (7.2-11.7) fl Neut % (Auto) 69.8 (50.0-75.0) % Lymph % (Auto) 9.8 L (20.0-40.0) % Finney % (Auto) 18.0 H (0.0-10.0) % Eos % (Auto) 1.7 (0.0-4.0) % Baso % (Auto) 0.7 (0.0-2.0) % Neut # (Auto) 6.9 (1.8-7.0) K/uL Lymph # (Auto) 1.0 (1.0-4.3) K/uL Finney # (Auto) 1.8 H (0.0-0.8) K/uL Eos # (Auto) 0.2 (0.0-0.7) K/uL Baso # (Auto) 0.1 (0.0-0.2) K/uL Neutrophils % (Manual) 80 H (42-75) % Lymphocytes % (Manual) 10 L (20-50) % Monocytes % (Manual) 8 (0-10) % Eosinophils % (Manual) 2 (0-7) % Platelet Estimate Markedly decreased L (NORMAL) Large Platelets Present Anisocytosis (manual) Slight Microcytosis (manual) Slight Ovalocytes Slight pCO2 (35-45) mm/Hg pO2 (80-100) mm/Hg HCO3 (21-28) mmol/L ABG pH (7.35-7.45) ABG Total CO2 (22-28) mmol/L ABG O2 Saturation (95-98) % ABG O2 Content (15-23) ML/dL ABG Base Excess (-2.0-3.0) mmol/L ABG Hemoglobin (11.7-17.4) g/dL ABG Carboxyhemoglobin (0.5-1.5) % POC ABG HHb (Measured) (0.0-5.0) % ABG Methemoglobin (0.0-3.0) % ABG O2 Capacity (16-24) mL/dL [place] Test A-a O2 Difference mm/Hg Hgb O2 Saturation (95.0-98.0) % Mechanical Rate FiO2 % Tidal Volume PEEP Sodium 134 (132-148) mmol/l Potassium 5.4 H (3.6-5.0) MMOL/L Chloride 105 (98-107) mmol/L Carbon Dioxide 24 (22-30) mmol/L Anion Gap 10 (10-20) BUN 111 H* (9-20) mg/dl Creatinine 1.6 H (0.8-1.5) mg/dl Est GFR ( Amer) 52 Est GFR (Non-Af Amer) 43 POC Glucose (mg/dL) 211 H (65-110) mg/dL Random Glucose 188 H (75-110) mg/dL Calcium 8.5 (8.4-10.2) mg/dL Phosphorus 4.1 (2.5-4.5) mg/dl Magnesium 4.0 H (1.6-2.3) MG/DL Total Bilirubin 2.9 H (0.2-1.3) mg/dl AST 81 H (17-59) U/L ALT 58 (21-72) U/L Alkaline Phosphatase 230 H D (38-126) U/L Ammonia (9-33) umol/L Total Protein 5.7 L (6.3-8.2) G/DL Albumin 2.2 L (3.5-5.0) g/dL Globulin 3.5 (2.2-3.9) gm/dL Albumin/Globulin Ratio 0.6 L (1.0-2.1) Urine Osmolality (300-1000) mosm/kg Ur Random Creatinine mg/dL U Random Total Protein (0.0-12.0) mg/dL Ur Random Sodium mmol/L 01/15/19 01/15/19 01/15/19 Range/Units 16:36 14:45 14:36 WBC (4.8-10.8) K/uL RBC (4.40-5.90) Mil/uL Hgb (12.0-18.0) g/dL Hct (35.0-51.0) % MCV (80.0-94.0) fl MCH (27.0-31.0) pg MCHC (33.0-37.0) g/dL RDW (11.5-14.5) % Plt Count (130-400) K/uL MPV (7.2-11.7) fl Neut % (Auto) (50.0-75.0) % Lymph % (Auto) (20.0-40.0) % Finney % (Auto) (0.0-10.0) % Eos % (Auto) (0.0-4.0) % Baso % (Auto) (0.0-2.0) % Neut # (Auto) (1.8-7.0) K/uL Lymph # (Auto) (1.0-4.3) K/uL Finney # (Auto) (0.0-0.8) K/uL Eos # (Auto) (0.0-0.7) K/uL Baso # (Auto) (0.0-0.2) K/uL Neutrophils % (Manual) (42-75) % Lymphocytes % (Manual) (20-50) % Monocytes % (Manual) (0-10) % Eosinophils % (Manual) (0-7) % Platelet Estimate (NORMAL) Large Platelets Anisocytosis (manual) Microcytosis (manual) Ovalocytes pCO2 (35-45) mm/Hg pO2 (80-100) mm/Hg HCO3 (21-28) mmol/L ABG pH (7.35-7.45) ABG Total CO2 (22-28) mmol/L ABG O2 Saturation (95-98) % ABG O2 Content (15-23) ML/dL ABG Base Excess (-2.0-3.0) mmol/L ABG Hemoglobin (11.7-17.4) g/dL ABG Carboxyhemoglobin (0.5-1.5) % POC ABG HHb (Measured) (0.0-5.0) % ABG Methemoglobin (0.0-3.0) % ABG O2 Capacity (16-24) mL/dL Lupillo Test A-a O2 Difference mm/Hg Hgb O2 Saturation (95.0-98.0) % Mechanical Rate FiO2 % Tidal Volume PEEP Sodium (132-148) mmol/l Potassium (3.6-5.0) MMOL/L Chloride (98-107) mmol/L Carbon Dioxide (22-30) mmol/L Anion Gap (10-20) BUN (9-20) mg/dl Creatinine (0.8-1.5) mg/dl Est GFR ( Amer) Est GFR (Non-Af Amer) POC Glucose (mg/dL) 259 H (65-110) mg/dL Random Glucose (75-110) mg/dL Calcium (8.4-10.2) mg/dL Phosphorus (2.5-4.5) mg/dl Magnesium (1.6-2.3) MG/DL Total Bilirubin (0.2-1.3) mg/dl AST (17-59) U/L ALT (21-72) U/L Alkaline Phosphatase (38-126) U/L Ammonia 222 H* (9-33) umol/L Total Protein (6.3-8.2) G/DL Albumin (3.5-5.0) g/dL Globulin (2.2-3.9) gm/dL Albumin/Globulin Ratio (1.0-2.1) Urine Osmolality 504 (300-1000) mosm/kg Ur Random Creatinine 89.9 mg/dL U Random Total Protein 12.0 (0.0-12.0) mg/dL Ur Random Sodium < 5 mmol/L 01/15/19 01/15/19 Range/Units 13:08 11:04 WBC (4.8-10.8) K/uL RBC (4.40-5.90) Mil/uL Hgb (12.0-18.0) g/dL Hct (35.0-51.0) % MCV (80.0-94.0) fl MCH (27.0-31.0) pg MCHC (33.0-37.0) g/dL RDW (11.5-14.5) % Plt Count (130-400) K/uL MPV (7.2-11.7) fl Neut % (Auto) (50.0-75.0) % Lymph % (Auto) (20.0-40.0) % Finney % (Auto) (0.0-10.0) % Eos % (Auto) (0.0-4.0) % Baso % (Auto) (0.0-2.0) % Neut # (Auto) (1.8-7.0) K/uL Lymph # (Auto) (1.0-4.3) K/uL Finney # (Auto) (0.0-0.8) K/uL Eos # (Auto) (0.0-0.7) K/uL Baso # (Auto) (0.0-0.2) K/uL Neutrophils % (Manual) (42-75) % Lymphocytes % (Manual) (20-50) % Monocytes % (Manual) (0-10) % Eosinophils % (Manual) (0-7) % Platelet Estimate (NORMAL) Large Platelets Anisocytosis (manual) Microcytosis (manual) Ovalocytes pCO2 (35-45) mm/Hg pO2 (80-100) mm/Hg HCO3 (21-28) mmol/L ABG pH (7.35-7.45) ABG Total CO2 (22-28) mmol/L ABG O2 Saturation (95-98) % ABG O2 Content (15-23) ML/dL ABG Base Excess (-2.0-3.0) mmol/L ABG Hemoglobin (11.7-17.4) g/dL ABG Carboxyhemoglobin (0.5-1.5) % POC ABG HHb (Measured) (0.0-5.0) % ABG Methemoglobin (0.0-3.0) % ABG O2 Capacity (16-24) mL/dL [place] Test A-a O2 Difference mm/Hg Hgb O2 Saturation (95.0-98.0) % Mechanical Rate FiO2 % Tidal Volume PEEP Sodium 132 (132-148) mmol/l Potassium 5.0 (3.6-5.0) MMOL/L Chloride 102 (98-107) mmol/L Carbon Dioxide 24 (22-30) mmol/L Anion Gap 11 (10-20) BUN 107 H* (9-20) mg/dl Creatinine 1.5 (0.8-1.5) mg/dl Est GFR ( Amer) 56 Est GFR (Non-Af Amer) 46 POC Glucose (mg/dL) 269 H (65-110) mg/dL Random Glucose 232 H (75-110) mg/dL Calcium 8.5 (8.4-10.2) mg/dL Phosphorus 4.0 (2.5-4.5) mg/dl Magnesium 3.9 H (1.6-2.3) MG/DL Total Bilirubin 2.4 H (0.2-1.3) mg/dl AST 80 H D (17-59) U/L ALT 59 (21-72) U/L Alkaline Phosphatase 289 H D (38-126) U/L Ammonia (9-33) umol/L Total Protein 5.7 L (6.3-8.2) G/DL Albumin 2.2 L (3.5-5.0) g/dL Globulin 3.5 (2.2-3.9) gm/dL Albumin/Globulin Ratio 0.6 L (1.0-2.1) Urine Osmolality (300-1000) mosm/kg Ur Random Creatinine mg/dL U Random Total Protein (0.0-12.0) mg/dL Ur Random Sodium mmol/L Laboratory Results - last 24 hr 01/15/19 01/15/19 01/15/19 11:04 13:08 14:36 WBC RBC Hgb Hct MCV MCH MCHC RDW Plt Count MPV Neut % (Auto) Lymph % (Auto) Finney % (Auto) Eos % (Auto) Baso % (Auto) Neut # (Auto) Lymph # (Auto) Finney # (Auto) Eos # (Auto) Baso # (Auto) Neutrophils % (Manual) Lymphocytes % (Manual) Monocytes % (Manual) Eosinophils % (Manual) Platelet Estimate Large Platelets Anisocytosis (manual) Microcytosis (manual) Ovalocytes pCO2 pO2 HCO3 ABG pH ABG Total CO2 ABG O2 Saturation ABG O2 Content ABG Base Excess ABG Hemoglobin ABG Carboxyhemoglobin POC ABG HHb (Measured) ABG Methemoglobin ABG O2 Capacity [place] Test A-a O2 Difference Hgb O2 Saturation Mechanical Rate FiO2 Tidal Volume PEEP Sodium 132 Potassium 5.0 Chloride 102 Carbon Dioxide 24 Anion Gap 11 BUN 107 H* Creatinine 1.5 Est GFR ( Amer) 56 Est GFR (Non-Af Amer) 46 POC Glucose (mg/dL) 269 H Random Glucose 232 H Calcium 8.5 Phosphorus 4.0 Magnesium 3.9 H Total Bilirubin 2.4 H AST 80 H D ALT 59 Alkaline Phosphatase 289 H D Ammonia Total Protein 5.7 L Albumin 2.2 L Globulin 3.5 Albumin/Globulin Ratio 0.6 L Urine Osmolality 504 Ur Random Creatinine 89.9 U Random Total Protein 12.0 Ur Random Sodium < 5 01/15/19 01/15/19 01/15/19 14:45 16:36 21:39 WBC RBC Hgb Hct MCV MCH MCHC RDW Plt Count MPV Neut % (Auto) Lymph % (Auto) Finney % (Auto) Eos % (Auto) Baso % (Auto) Neut # (Auto) Lymph # (Auto) Finney # (Auto) Eos # (Auto) Baso # (Auto) Neutrophils % (Manual) Lymphocytes % (Manual) Monocytes % (Manual) Eosinophils % (Manual) Platelet Estimate Large Platelets Anisocytosis (manual) Microcytosis (manual) Ovalocytes pCO2 pO2 HCO3 ABG pH ABG Total CO2 ABG O2 Saturation ABG O2 Content ABG Base Excess ABG Hemoglobin ABG Carboxyhemoglobin POC ABG HHb (Measured) ABG Methemoglobin ABG O2 Capacity [place] Test A-a O2 Difference Hgb O2 Saturation Mechanical Rate FiO2 Tidal Volume PEEP Sodium Potassium Chloride Carbon Dioxide Anion Gap BUN Creatinine Est GFR ( Amer) Est GFR (Non-Af Amer) POC Glucose (mg/dL) 259 H 211 H Random Glucose Calcium Phosphorus Magnesium Total Bilirubin AST ALT Alkaline Phosphatase Ammonia 222 H* Total Protein Albumin Globulin Albumin/Globulin Ratio Urine Osmolality Ur Random Creatinine U Random Total Protein Ur Random Sodium 01/16/19 01/16/19 01/16/19 04:10 04:10 04:10 WBC 9.9 RBC 3.25 L Hgb 12.5 Hct 36.2 MCV 111.5 H MCH 38.4 H MCHC 34.4 RDW 17.8 H Plt Count 82 L D MPV 11.7 Neut % (Auto) 69.8 Lymph % (Auto) 9.8 L Finney % (Auto) 18.0 H Eos % (Auto) 1.7 Baso % (Auto) 0.7 Neut # (Auto) 6.9 Lymph # (Auto) 1.0 Finney # (Auto) 1.8 H Eos # (Auto) 0.2 Baso # (Auto) 0.1 Neutrophils % (Manual) 80 H Lymphocytes % (Manual) 10 L Monocytes % (Manual) 8 Eosinophils % (Manual) 2 Platelet Estimate Markedly decreased L Large Platelets Present Anisocytosis (manual) Slight Microcytosis (manual) Slight Ovalocytes Slight pCO2 pO2 HCO3 ABG pH ABG Total CO2 ABG O2 Saturation ABG O2 Content ABG Base Excess ABG Hemoglobin ABG Carboxyhemoglobin POC ABG HHb (Measured) ABG Methemoglobin ABG O2 Capacity [place] Test A-a O2 Difference Hgb O2 Saturation Mechanical Rate FiO2 Tidal Volume PEEP Sodium 134 Potassium 5.4 H Chloride 105 Carbon Dioxide 24 Anion Gap 10 BUN 111 H* Creatinine 1.6 H Est GFR ( Amer) 52 Est GFR (Non-Af Amer) 43 POC Glucose (mg/dL) Random Glucose 188 H Calcium 8.5 Phosphorus 4.1 Magnesium 4.0 H Total Bilirubin 2.9 H AST 81 H ALT 58 Alkaline Phosphatase 230 H D Ammonia 147 H D Total Protein 5.7 L Albumin 2.2 L Globulin 3.5 Albumin/Globulin Ratio 0.6 L Urine Osmolality Ur Random Creatinine U Random Total Protein Ur Random Sodium 01/16/19 01/16/19 04:40 05:04 WBC RBC Hgb Hct MCV MCH MCHC RDW Plt Count MPV Neut % (Auto) Lymph % (Auto) Finney % (Auto) Eos % (Auto) Baso % (Auto) Neut # (Auto) Lymph # (Auto) Finney # (Auto) Eos # (Auto) Baso # (Auto) Neutrophils % (Manual) Lymphocytes % (Manual) Monocytes % (Manual) Eosinophils % (Manual) Platelet Estimate Large Platelets Anisocytosis (manual) Microcytosis (manual) Ovalocytes pCO2 32 L pO2 81 HCO3 27.1 ABG pH 7.51 H ABG Total CO2 26.5 ABG O2 Saturation 98.8 H ABG O2 Content 17.2 ABG Base Excess 2.9 ABG Hemoglobin 12.8 ABG Carboxyhemoglobin 2.4 H POC ABG HHb (Measured) 1.2 ABG Methemoglobin 1.0 ABG O2 Capacity 17.4 Lup[place] Test Yes A-a O2 Difference 164.0 Hgb O2 Saturation 95.4 Mechanical Rate 12 FiO2 40.0 Tidal Volume 450 PEEP 5 Sodium Potassium Chloride Carbon Dioxide Anion Gap BUN Creatinine Est GFR ( Amer) Est GFR (Non-Af Amer) POC Glucose (mg/dL) 212 H Random Glucose Calcium Phosphorus Magnesium Total Bilirubin AST ALT Alkaline Phosphatase Ammonia Total Protein Albumin Globulin Albumin/Globulin Ratio Urine Osmolality Ur Random Creatinine U Random Total Protein Ur Random Sodium Fingerstick Blood Sugar Results: 212 Review of Systems - Review of Systems Review of Systems: unable to assess due to patient is ventilated Assessment/Plan (1) Acute respiratory failure Current Visit: Yes Status: Acute Priority: High Comment: Patient orally intubated and mechanically ventilated due to altered mental status from hepatic encephalopathy and hyperammonemia (ammonia level improving) Continue lactulose 20 gm q4h and rifaximin 550 mg BID Frequent neuro check Vent weaning to be started when mental status improves Maintain aspiration precaution Daily chest x-ray and ABG while intubated Tube feeding rate adjusted after discussion with raw silk grader. lucille change feeding to [place] at 50 cc/hr. (2) Hospital-acquired bacterial pneumonia Current Visit: Yes Status: Acute Comment: Sputum culture on 01/10/19 showed Pseudomonas and Klebsiella chest CT on 01/15/19 shows posterior bibasilar pneumonic consolidation. c/w Cefepime 1 gm q24 and Vancomycin 750 mg q24hr -start cipro 400 mg ivpb q12 Hr to cover for double gram negative coverage. -Consider ID consult if patient develops fever or elevated WBC (3) Altered mental status Current Visit: Yes Status: Acute Priority: High Comment: head CT on 01/15/19 is negative for intracranial pathology (4) Colitis Current Visit: Yes Status: Acute Comment: On cipro and Maxipime (5) Hepatic encephalopathy Current Visit: Yes Status: Acute Priority: High Comment: afebrile today c/w Vancomycin and Cefepime in renal dose (6) NIRAJ (acute kidney injury) Current Visit: Yes Status: Acute Comment: f/u AM labs Avoid nephrotoxic agents (7) Hyperammonemia Current Visit: Yes Status: Acute Priority: High Comment: c/w lactulose and rifaximin (8) Hyponatremia Current Visit: Yes Status: Acute Comment: Resolved, Na 134 this morning [employer] Dr. banda on board -f/u AM labs (9) Thrombocytopenia Current Visit: Yes Status: Acute Comment: improving (10) DM type 2 (diabetes mellitus, type 2) Current Visit: No Status: Acute (11) UTI (urinary tract infection) Current Visit: Yes Status: Acute Comment: on tx <Sinan Santana - Last Filed: 01/16/19 18:31> Assessment/Plan - Assessment and Plan (Free Text) Assessment: Attestation: Patient seen and examined at the bedside with Resident Dr. Lizeth Paris; and I agree with his outline of plans and management documented above as discussed on AM rounds reflecting my review of all applicable clinical data, and participation in the care of the patient throughout the day in ICU; today, January 16, 2019.
[2019-01-16] MEDS ORDERED: Ciprofloxacin 400mg/200ml D5W 400 MG/200 ML BAG IVPB SCH (11:15)
--- NOTE | 2019-01-16 12:56 | CP.PCM.PN ---
Subjective - Date & Time of Evaluation Date of Evaluation: 01/16/19 Time of Evaluation: 12:56 - Subjective Subjective: Patient appears to be quiet sedated intubated and he has NG tube Vital signs noted to be stable Objective - Vital Signs/Intake and Output Vital Signs (last 24 hours): Temp Pulse Resp BP Pulse Ox 98 F 78 24 127/60 98 01/16/19 12:00 01/16/19 12:00 01/16/19 12:00 01/16/19 12:00 01/16/19 12:00 Intake and Output: 01/16/19 01/16/19 06:59 18:59 Intake Total 110 154 Output Total 1 Balance 109 154 - Medications Medications: Current Medications Carvedilol (Coreg) 6.25 mg NG Q12 [facility] Last Admin: 01/16/19 09:01 Dose: Not Given Cilostazol (Pletal) 50 mg PO Q12 JOANNA Last Admin: 01/07/19 10:22 Dose: Not Given Folic Acid (Folic Acid) 1 mg GT DAILY [facility] Last Admin: 01/16/19 09:01 Dose: 1 mg Hydralazine HCl (Apresoline) 25 mg PO TID JOANNA Last Admin: 01/16/19 08:58 Dose: Not Given Vancomycin HCl 750 mg/ Sodium (Chloride) 250 mls @ 166.667 mls/hr IVPB DAILY JOANNA; Protocol Cefepime HCl 1 gm/ Sodium (Chloride) 100 mls @ 100 mls/hr IVPB DAILY JOANNA; Protocol Last Admin: 01/16/19 09:06 Dose: 100 mls/hr Ciprofloxacin (Cipro 400mg/200ml Dsw) 400 mg in 200 mls @ 200 mls/hr IVPB Q12 JOANNA; Protocol Insulin Detemir (Levemir) 15 units SC DAILY JOANNA Last Admin: 01/16/19 09:02 Dose: 15 units Insulin Human Regular (Humulin R) 0 units SC Q6H JOANNA; Protocol Last Admin: 01/16/19 12:52 Dose: Not Given Lactulose (Enulose) 20 gm GT Q4H JOANNA Last Admin: 01/16/19 05:56 Dose: 20 gm Levothyroxine Sodium (Synthroid) 50 mcg PO DAILY@0630 JOANNA Last Admin: 01/16/19 05:56 Dose: 50 mcg Pantoprazole Sodium (Protonix Susp) 40 mg NG DAILY [facility] Last Admin: 01/16/19 09:04 Dose: 40 mg Rifaximin (Xifaxan) 550 mg PO BID [facility]; Protocol Last Admin: 01/16/19 09:03 Dose: 550 mg Thiamine HCl (Vitamin B1 Tab) 100 mg GT DAILY [facility] Last Admin: 01/16/19 09:04 Dose: 100 mg - Labs Labs: 01/16/19 04:10 01/16/19 04:10 PT 16.1 Seconds (9.8-13.1) H 01/11/19 05:33 INR 1.4 01/11/19 05:33 APTT 32.9 Seconds (25.6-37.1) 01/11/19 05:33 - Constitutional Appears: No Acute Distress - Eye Exam Eye Exam: Conjunctival injection - ENT Exam ENT Exam: absent: Mucous Membranes Moist - Respiratory Exam Respiratory Exam: Rhonchi. absent: Chest Wall Tenderness - Cardiovascular Exam Cardiovascular Exam: absent: Gallop, JVD, Rubs - GI/Abdominal Exam GI & Abdominal Exam: Soft, Normal Bowel Sounds - Extremities Exam Extremities Exam: absent: Calf Tenderness - Back Exam Back Exam: absent: CVA tenderness (L), CVA tenderness (R) - Neurological Exam Neurological Exam: Altered - Psychiatric Exam Psychiatric exam: Flat Affect - Skin Skin Exam: absent: Cyanosis Assessment and Plan (1) Hyponatremia Status: Acute (2) NIRAJ (acute kidney injury) Assessment & Plan: Acute kidney injury with hepatorenal syndrome most likely Hyponatremia serum sodium trending down rapidly. NG tube feeding noted with 300 cc of water has been given every 6 hours through the NG tube. Patient diagnosed with liver cirrhosis and liver malignancy as noted Hepatic encephalopathy Status post chemotherapy apparently Diabetes mellitus Respiratory failure Recommendation Serum sodium improving coming up Worsening kidney function Antibiotics vancomycin and Cipro Must change considering GFR the dose has to come down please Respiratory management as per primary team and the rest of the intensive care management Status: Acute (3) Acute respiratory failure Status: Acute (4) Altered mental status Status: Acute (5) Hepatic encephalopathy Status: Acute (6) Hyperammonemia Status: Acute (7) Liver mass Status: Acute (8) Thrombocytopenia Status: Acute
--- NOTE | 2019-01-16 13:17 | CT ---
Date of service: 01/15/2019 PROCEDURE: CT HEAD WITHOUT CONTRAST. HISTORY: AMS, hyperammonemia COMPARISON: None available. TECHNIQUE: Axial computed tomography images were obtained through the head/brain without intravenous contrast. Radiation dose: Total exam DLP = 968.7 mGy-cm. This CT exam was performed using one or more of the following dose reduction techniques: Automated exposure control, adjustment of the mA and/or kV according to patient size, and/or use of iterative reconstruction technique. FINDINGS: HEMORRHAGE: No intracranial hemorrhage. BRAIN: No mass effect or edema. No atrophy or chronic microvascular ischemic changes. VENTRICLES: Unremarkable. No hydrocephalus. CALVARIUM: Unremarkable. PARANASAL SINUSES: Unremarkable as visualized. No significant inflammatory changes. MASTOID AIR CELLS: Unremarkable as visualized. No inflammatory changes. OTHER FINDINGS: The report concurs with the preliminary [facility] report IMPRESSION: No acute intracranial findings
--- NOTE | 2019-01-16 13:24 | CT ---
Date of service: 01/15/2019 PROCEDURE: CT Chest without contrast HISTORY: Pleural effusion COMPARISON: None available. TECHNIQUE: Contiguous axial images were obtained through the chest without intravenous contrast enhancement. Sagittal and coronal reconstructions were performed. Radiation dose: Total exam DLP = 536.19 mGy-cm. This CT exam was performed using one or more of the following dose reduction techniques: Automated exposure control, adjustment of the mA and/or kV according to patient size, and/or use of iterative reconstruction technique. FINDINGS: LUNGS: There is dense subsegmental consolidation of both lung bases with air bronchograms. This could represent pneumonia or atelectasis. The endotracheal and nasogastric tubes are in satisfactory position MEDIASTINUM: Unremarkable thoracic aorta. No aneurysm. Normal sized heart. Main pulmonary artery unremarkable. No vascular congestion. No lymphadenopathy. No aortic atherosclerotic calcification. PLEURA: No pleural fluid. No pneumothorax. BONES: No fracture. No destructive lesion. UPPER ABDOMEN: Cirrhosis with atrophy of the liver. AP portacaval shunt is seen in place. OTHER FINDINGS: None. IMPRESSION: There is dense subsegmental consolidation of both lung bases with air bronchograms. This could represent pneumonia or atelectasis. The endotracheal and nasogastric tubes are in satisfactory position
--- NOTE | 2019-01-16 13:29 | CT ---
Date of service: 01/15/2019 PROCEDURE: CT Abdomen and Pelvis without intravenous contrast HISTORY: Ascites, liver cirrhosis,AMS COMPARISON: None. TECHNIQUE: Without contrast.. Contrast dose: Radiation dose: Total exam DLP = 991.7 mGy-cm. This CT exam was performed using one or more of the following dose reduction techniques: Automated exposure control, adjustment of the mA and/or kV according to patient size, and/or use of iterative reconstruction technique. FINDINGS: LOWER THORAX: Bibasilar consolidation LIVER: There is cirrhosis of the liver. A portal venous shunt is seen GALLBLADDER AND BILE DUCTS: Unremarkable. PANCREAS: Unremarkable. No gross lesion or ductal dilatation. SPLEEN: Unremarkable. ADRENALS: Unremarkable. No mass. KIDNEYS AND URETERS: Unremarkable. No hydronephrosis. No solid mass. VASCULATURE: Unremarkable. No aortic aneurysm. No aortic atherosclerotic calcification or mural plaque present. BOWEL: A nasogastric tube is seen. There is some mural thickening in the stomach consistent with gastritis. There is also mural thickening in the small bowel consistent with enteritis. APPENDIX: Unremarkable. Normal appendix. PERITONEUM: Unremarkable. No free fluid. No free air. LYMPH NODES: Unremarkable. No enlarged lymph nodes. BLADDER: Unremarkable. REPRODUCTIVE: Unremarkable. BONES: Disc degeneration at L4-5 and L5-S1 OTHER FINDINGS: The report concurs with the preliminary [facility] report IMPRESSION: Possible gastritis and enteritis. No acute intra-abdominal findings. See comments
--- NOTE | 2019-01-16 13:59 | RAD ---
Date of service: 01/16/2019 HISTORY: intubated COMPARISON: January 15, 2019. FINDINGS: LUNGS: Stable atelectasis/low lung volumes. PLEURA: No significant pleural effusion identified, no pneumothorax apparent. CARDIOVASCULAR: No atherosclerotic calcification present Normal. OSSEOUS STRUCTURES: No significant abnormalities. VISUALIZED UPPER ABDOMEN: Normal. OTHER FINDINGS: Endotracheal tube tip in the right mainstem bronchus. Stable position of nasogastric tube is visualized. IMPRESSION: Improperly positioned endotracheal tube. The tip is in the right mainstem bronchus.
[2019-01-16] MEDS: Ciprofloxacin 400mg/200ml D5W 400 MG/200 ML BAG IVPB SCH (15:18)
--- NOTE | 2019-01-16 22:56 | CP.PCM.PN ---
Subjective - Date & Time of Evaluation Date of Evaluation: 01/16/19 Time of Evaluation: 13:00 - Subjective Subjective: Vented Objective - Vital Signs/Intake and Output Vital Signs (last 24 hours): Temp Pulse Resp BP Pulse Ox 99.3 F 79 26 H 121/59 L 100 01/16/19 20:00 01/16/19 22:00 01/16/19 22:00 01/16/19 22:00 01/16/19 22:00 Intake and Output: 01/16/19 01/17/19 18:59 06:59 Intake Total 1064 370 Balance 1064 370 - Medications Medications: Current Medications Carvedilol (Coreg) 6.25 mg NG Q12 [facility] Last Admin: 01/16/19 20:44 Dose: 6.25 mg Cilostazol (Pletal) 50 mg PO Q12 [facility] Last Admin: 01/07/19 10:22 Dose: Not Given Folic Acid (Folic Acid) 1 mg GT DAILY [facility] Last Admin: 01/16/19 09:01 Dose: 1 mg Hydralazine HCl (Apresoline) 25 mg PO TID [facility] Last Admin: 01/16/19 17:13 Dose: Not Given Vancomycin HCl 750 mg/ Sodium (Chloride) 250 mls @ 166.667 mls/hr IVPB DAILY [facility]; Protocol Last Admin: 01/16/19 16:41 Dose: 166.667 mls/hr Cefepime HCl 1 gm/ Sodium (Chloride) 100 mls @ 100 mls/hr IVPB DAILY [facility]; Protocol Last Admin: 01/16/19 09:06 Dose: 100 mls/hr Ciprofloxacin (Cipro 400mg/200ml Dsw) 400 mg in 200 mls @ 200 mls/hr IVPB Q18H [facility]; Protocol Last Admin: 01/16/19 15:18 Dose: Not Given Insulin Detemir (Levemir) 15 units SC DAILY [facility] Last Admin: 01/16/19 09:02 Dose: 15 units Insulin Human Regular (Humulin R) 0 units SC Q6H [facility]; Protocol Last Admin: 01/16/19 17:16 Dose: 3 unit Lactulose (Enulose) 20 gm GT Q4H [facility] Last Admin: 01/16/19 21:36 Dose: 20 gm Levothyroxine Sodium (Synthroid) 50 mcg PO DAILY@0630 [facility] Last Admin: 01/16/19 05:56 Dose: 50 mcg Pantoprazole Sodium (Protonix Susp) 40 mg NG DAILY [facility] Last Admin: 01/16/19 09:04 Dose: 40 mg Rifaximin (Xifaxan) 550 mg PO BID [facility]; Protocol Last Admin: 01/16/19 17:17 Dose: 550 mg Thiamine HCl (Vitamin B1 Tab) 100 mg GT DAILY [facility] Last Admin: 01/16/19 09:04 Dose: 100 mg - Labs Labs: 01/16/19 04:10 01/16/19 04:10 PT 16.1 Seconds (9.8-13.1) H 01/11/19 05:33 INR 1.4 01/11/19 05:33 APTT 32.9 Seconds (25.6-37.1) 01/11/19 05:33 - Head Exam Head Exam: ATRAUMATIC - Eye Exam Eye Exam: Normal appearance - ENT Exam ENT Exam: Mucous Membranes Dry - Respiratory Exam Respiratory Exam: Decreased Breath Sounds - Cardiovascular Exam Cardiovascular Exam: +S1, +S2 - GI/Abdominal Exam GI & Abdominal Exam: Normal Bowel Sounds Assessment and Plan (1) Thrombocytopenia Assessment & Plan: liver cirrhosis and splenic sequestration Status: Acute (2) Coagulopathy Assessment & Plan: liver disease nutritional component vit k and FFP PRN Status: Acute (3) Liver mass Assessment & Plan: ? HCC outpatient f/u with primary print designer Status: Acute
[2019-01-17 05:17] LABS: ABG ALLEN TEST YES; ARTERIAL BLOOD GAS HCO3 28.9 mmol/L (21-28); ARTERIAL BLOOD GAS HEMOGLOBIN 13.5 g/dL (11.7-17.4); ARTERIAL BLOOD GAS O2 CAPACITY 18.3 mL/dL (16-24); ARTERIAL BLOOD GAS O2 CONTENT 18.1 ML/dL (15-23); ARTERIAL BLOOD GAS O2 SAT 98.7 % (95-98); ARTERIAL BLOOD GAS PCO2 34 mm/Hg (35-45); ARTERIAL BLOOD GAS PH 7.52 (7.35-7.45); ARTERIAL BLOOD GAS PO2 83 mm/Hg (80-100); ARTERIAL BLOOD GAS TCO2 28.8 mmol/L (22-28)
[2019-01-17] MEDS: Insulin Regular 100 units/ml SC SCH ×6 (05:51→23:10)
[2019-01-17] MEDS: Levothyroxine 50 MCG TAB PO SCH (05:52)
[2019-01-17 07:09] LABS: BASO % 0.1 % (0.0-2.0); EOS # 0.2 K/uL (0.0-0.7); EOS % 2.9 % (0.0-4.0); HEMOGLOBIN 11.9 g/dL (12.0-18.0); LYMPH # 0.8 K/uL (1.0-4.3); MEAN CORPUSCULAR HEMOGLOBIN 38.9 pg (27.0-31.0); MEAN CORPUSCULAR HGB CONC 34.6 g/dL (33.0-37.0); MONO # 1.5 K/uL (0.0-0.8); MONO % 17.3 % (0.0-10.0); NEUT # 5.9 K/uL (1.8-7.0); NEUT % 70.7 % (50.0-75.0); NRBC % 0.2 % (0.0-0.0); RBC 3.06 Mil/uL (4.40-5.90); RED CELL DISTRIBUTION WIDTH 17.7 % (11.5-14.5); WHITE BLOOD COUNT 8.4 K/uL (4.8-10.8)
[2019-01-17 07:15] LABS: MEAN CELL VOLUME 112.4 fl (80.0-94.0)
[2019-01-17 07:16] LABS: ALB/GLOB RATIO 0.6 (1.0-2.1); ALBUMIN 2.1 g/dL (3.5-5.0); ALT/SGPT 60 U/L (21-72); AST/SGOT 91 U/L (17-59); BLOOD UREA NITROGEN 97 mg/dl (9-20); CALCIUM 8.3 mg/dL (8.4-10.2); GFR NON-AFRICAN AMERICAN 55
[2019-01-17] MEDS: Cefepime 1 GM in Sodium Chloride 0.9% 100 ML IVPB SCH (08:54)
[2019-01-17] MEDS: Insulin Detemir 100 Units/ml Inj SC SCH ×2 (09:00→20:18)
[2019-01-17] MEDS: Pantoprazole 40 mg Susp UD NG SCH (09:00)
[2019-01-17] MEDS: Ciprofloxacin 400mg/200ml D5W 400 MG/200 ML BAG IVPB SCH (09:31)
[2019-01-17] MEDS ORDERED: Magnesium Citrate Oral SOL (300 ml) NG ONE (09:45)
--- NOTE | 2019-01-17 10:10 | CP.CCUPN ---
<GansevoortSultan moni - Last Filed: 01/17/19 11:31> CCU Subjective - Physician Review Subjective (Free Text): 01/17/19 10:32 68 yo Male with PMHx of DMII, Gastritis, HTN, Hypercholesterolemia, Chronic Kidney Disease, liver cirrhosis, hepatic encephalopathy and liver malignancy was brought in to the emergency room on 01/06/19 by the family for evaluation of altered mental status, confusion and abdominal pain. Patient was initially admitted to Med/surg unit, however was transferred to the intensive care unit later in the evening for his worsening of his mental status and intubated since then. Patient seen and evaluated this AM. On ventilation since 01/06/19 (Day 12) with current vent setting PRVC/AC 10, 400, PEEP 5 with FiO2 of 30%, saturating 97% Overnight events and nurses notes reviewed. Patient remains sedated. Has low grade fever of 100.4 F this morning, however BP and HR stable. Renal function improving. OG tube feeding with Suplena at 50 ml/hr with 150 cc saline flush every 4 hours. Worsening ammonia level, will order magnesium citrate to stimulate BM. CCU Objective - Vital Signs / Intake & Output Vital Signs (Last 4 hours): Vital Signs Temp Pulse Resp BP Pulse Ox 01/17/19 09:02 93 H 134/61 01/17/19 08:55 90 117/56 L 01/17/19 08:00 100.4 F H 89 26 H 117/56 L 98 Intake and Output (Last 8hrs): Intake & Output 01/16/19 01/17/19 01/17/19 22:59 06:59 14:59 Intake Total 1130 740 110 Balance 1130 740 110 Weight 98.067 kg Intake: Intake, Piggyback 550 Tube Feeding 330 440 110 Free Water Flush 250 300 - Physical Exam Physical Exam Limitations: Positive for: Other (sedated, on MV) Head: Positive for: Atraumatic, Normocephalic Pupils: Positive for: PERRL Extroacular Muscles: Positive for: EOMI Conjunctiva: Positive for: Icteric Ears: Positive for: Normal Mouth: Positive for: Moist Mucous Membranes Nose (External): Positive for: Atraumatic Respiratory/Chest: Positive for: Clear to Auscultation, Good Air Exchange Cardiovascular: Positive for: Regular Rate and Rhythm Abdomen: Positive for: Normal Bowel Sounds. Negative for: Tenderness, Distention Upper Extremity: Positive for: Edema, Swelling (b/l upper extremities swelling and edema, 2+) Lower Extremity: Positive for: Edema Psychiatric: Negative for: Alert - Medications Active Medications: Active Medications Generic Name Dose Route Start Last Admin Trade Name Freq PRN Reason Stop Dose Admin Acetylcysteine 2 ml 01/17/19 20:00 Acetylcysteine 20% INH RBID JOANNA Albuterol Sulfate 2.5 mg 01/17/19 10:00 Albuterol 0.083% Inhal Mana (2.5 Mg/3 Ml) Ud INH Q12 JOANNA Carvedilol 6.25 mg 01/06/19 21:00 01/17/19 09:02 Coreg NG 6.25 mg Q12 JOANNA Administration Cilostazol 50 mg 01/06/19 10:30 01/07/19 10:22 Pletal PO Not Given Q12 JOANNA Folic Acid 1 mg 01/10/19 09:00 01/17/19 09:00 Folic Acid GT 1 mg DAILY JOANNA Administration Hydralazine HCl 25 mg 01/12/19 13:00 01/17/19 08:55 Apresoline PO Not Given TID JOANNA Vancomycin HCl 750 mg/ Sodium 250 mls @ 166.667 mls/hr 01/16/19 16:50 01/16/19 16:41 Chloride IVPB 166.667 mls/hr DAILY JOANNA Administration Protocol Cefepime HCl 1 gm/ Sodium 100 mls @ 100 mls/hr 01/15/19 17:00 01/17/19 08:54 Chloride IVPB 100 mls/hr DAILY JOANNA Administration Protocol Ciprofloxacin 400 mg in 200 mls @ 200 mls/hr 01/16/19 15:15 01/17/19 09:31 Cipro 400mg/200ml Dsw IVPB 200 mls/hr Q18H JOANNA Administration Protocol Insulin Detemir 15 units 01/14/19 09:00 01/17/19 09:00 Levemir SC 15 units DAILY JOANNA Administration Insulin Human Regular 0 units 01/06/19 11:30 01/17/19 05:51 Humulin R SC 4 unit Q6H JOANNA Administration Protocol Lactulose 20 gm 01/13/19 06:15 01/17/19 09:40 Enulose GT 20 gm Q4H JOANNA Administration Levothyroxine Sodium 50 mcg 01/09/19 06:30 01/17/19 05:52 Synthroid PO 50 mcg DAILY@0630 JOANNA Administration Pantoprazole Sodium 40 mg 01/07/19 13:15 01/17/19 09:00 Protonix Susp NG 40 mg DAILY JOANNA Administration Rifaximin 550 mg 01/11/19 17:00 01/17/19 09:00 Xifaxan PO 550 mg BID JOANNA Administration Protocol Thiamine HCl 100 mg 01/10/19 09:00 01/17/19 09:00 Vitamin B1 Tab GT 100 mg DAILY JOANNA Administration - Patient Studies Lab Studies: Microbiology Studies 01/15/19 18:40 Blood Culture - Preliminary Blood NO GROWTH AFTER 24 HOURS 01/15/19 17:45 Blood Culture - Preliminary Blood NO GROWTH AFTER 24 HOURS Lab Studies 01/17/19 01/17/19 01/17/19 Range/Units 06:20 06:00 06:00 WBC 8.4 (4.8-10.8) K/uL RBC 3.06 L (4.40-5.90) Mil/uL Hgb 11.9 L (12.0-18.0) g/dL Hct 34.4 L (35.0-51.0) % MCV 112.4 H (80.0-94.0) fl MCH 38.9 H (27.0-31.0) pg MCHC 34.6 (33.0-37.0) g/dL RDW 17.7 H (11.5-14.5) % Plt Count 108 L D (130-400) K/uL MPV 11.0 (7.2-11.7) fl Neut % (Auto) 70.7 (50.0-75.0) % Lymph % (Auto) 9.0 L (20.0-40.0) % Pratt % (Auto) 17.3 H (0.0-10.0) % Eos % (Auto) 2.9 (0.0-4.0) % Baso % (Auto) 0.1 (0.0-2.0) % Neut # (Auto) 5.9 (1.8-7.0) K/uL Lymph # (Auto) 0.8 L (1.0-4.3) K/uL Pratt # (Auto) 1.5 H (0.0-0.8) K/uL Eos # (Auto) 0.2 (0.0-0.7) K/uL Baso # (Auto) 0.0 (0.0-0.2) K/uL pCO2 (35-45) mm/Hg pO2 (80-100) mm/Hg HCO3 (21-28) mmol/L ABG pH (7.35-7.45) ABG Total CO2 (22-28) mmol/L ABG O2 Saturation (95-98) % ABG O2 Content (15-23) ML/dL ABG Base Excess (-2.0-3.0) mmol/L ABG Hemoglobin (11.7-17.4) g/dL ABG Carboxyhemoglobin (0.5-1.5) % POC ABG HHb (Measured) (0.0-5.0) % ABG Methemoglobin (0.0-3.0) % ABG O2 Capacity (16-24) mL/dL Lupillo Test A-a O2 Difference mm/Hg Hgb O2 Saturation (95.0-98.0) % Mechanical Rate FiO2 % Tidal Volume PEEP Sodium 138 (132-148) mmol/l Potassium 4.2 (3.6-5.0) MMOL/L Chloride 105 (98-107) mmol/L Carbon Dioxide 27 (22-30) mmol/L Anion Gap 10 (10-20) BUN 97 H (9-20) mg/dl Creatinine 1.3 (0.8-1.5) mg/dl Est GFR ( Amer) > 60 Est GFR (Non-Af Amer) 55 POC Glucose (mg/dL) (65-110) mg/dL Random Glucose 299 H (75-110) mg/dL Lactic Acid (0.7-2.1) mmol/L Calcium 8.3 L (8.4-10.2) mg/dL Phosphorus 3.9 (2.5-4.5) mg/dl Magnesium 3.7 H (1.6-2.3) MG/DL Total Bilirubin 2.4 H (0.2-1.3) mg/dl AST 91 H (17-59) U/L ALT 60 (21-72) U/L Alkaline Phosphatase 239 H (38-126) U/L Ammonia 214 H* D (9-33) umol/L Total Protein 5.7 L (6.3-8.2) G/DL Albumin 2.1 L (3.5-5.0) g/dL Globulin 3.5 (2.2-3.9) gm/dL Albumin/Globulin Ratio 0.6 L (1.0-2.1) Procalcitonin (0.19-0.49) NG/ML Stool Occult Blood (NEGATIVE) 01/17/19 01/17/19 01/16/19 Range/Units 05:24 05:10 20:59 WBC (4.8-10.8) K/uL RBC (4.40-5.90) Mil/uL Hgb (12.0-18.0) g/dL Hct (35.0-51.0) % MCV (80.0-94.0) fl MCH (27.0-31.0) pg MCHC (33.0-37.0) g/dL RDW (11.5-14.5) % Plt Count (130-400) K/uL MPV (7.2-11.7) fl Neut % (Auto) (50.0-75.0) % Lymph % (Auto) (20.0-40.0) % Pratt % (Auto) (0.0-10.0) % Eos % (Auto) (0.0-4.0) % Baso % (Auto) (0.0-2.0) % Neut # (Auto) (1.8-7.0) K/uL Lymph # (Auto) (1.0-4.3) K/uL Pratt # (Auto) (0.0-0.8) K/uL Eos # (Auto) (0.0-0.7) K/uL Baso # (Auto) (0.0-0.2) K/uL pCO2 34 L (35-45) mm/Hg pO2 83 (80-100) mm/Hg HCO3 28.9 H (21-28) mmol/L ABG pH 7.52 H (7.35-7.45) ABG Total CO2 28.8 H (22-28) mmol/L ABG O2 Saturation 98.7 H (95-98) % ABG O2 Content 18.1 (15-23) ML/dL ABG Base Excess 5.1 H (-2.0-3.0) mmol/L ABG Hemoglobin 13.5 (11.7-17.4) g/dL ABG Carboxyhemoglobin 1.9 H (0.5-1.5) % POC ABG HHb (Measured) 1.3 (0.0-5.0) % ABG Methemoglobin 1.5 (0.0-3.0) % ABG O2 Capacity 18.3 (16-24) mL/dL Lupillo Test Yes A-a O2 Difference 88.0 mm/Hg Hgb O2 Saturation 95.3 (95.0-98.0) % Mechanical Rate 10 FiO2 30.0 % Tidal Volume 400 PEEP 5 Sodium (132-148) mmol/l Potassium (3.6-5.0) MMOL/L Chloride (98-107) mmol/L Carbon Dioxide (22-30) mmol/L Anion Gap (10-20) BUN (9-20) mg/dl Creatinine (0.8-1.5) mg/dl Est GFR ( Amer) Est GFR (Non-Af Amer) POC Glucose (mg/dL) 308 H 292 H (65-110) mg/dL Random Glucose (75-110) mg/dL Lactic Acid (0.7-2.1) mmol/L Calcium (8.4-10.2) mg/dL Phosphorus (2.5-4.5) mg/dl Magnesium (1.6-2.3) MG/DL Total Bilirubin (0.2-1.3) mg/dl AST (17-59) U/L ALT (21-72) U/L Alkaline Phosphatase (38-126) U/L Ammonia (9-33) umol/L Total Protein (6.3-8.2) G/DL Albumin (3.5-5.0) g/dL Globulin (2.2-3.9) gm/dL Albumin/Globulin Ratio (1.0-2.1) Procalcitonin (0.19-0.49) NG/ML Stool Occult Blood (NEGATIVE) 01/16/19 01/16/19 01/16/19 Range/Units 16:34 16:00 11:46 WBC (4.8-10.8) K/uL RBC (4.40-5.90) Mil/uL Hgb (12.0-18.0) g/dL Hct (35.0-51.0) % MCV (80.0-94.0) fl MCH (27.0-31.0) pg MCHC (33.0-37.0) g/dL RDW (11.5-14.5) % Plt Count (130-400) K/uL MPV (7.2-11.7) fl Neut % (Auto) (50.0-75.0) % Lymph % (Auto) (20.0-40.0) % Pratt % (Auto) (0.0-10.0) % Eos % (Auto) (0.0-4.0) % Baso % (Auto) (0.0-2.0) % Neut # (Auto) (1.8-7.0) K/uL Lymph # (Auto) (1.0-4.3) K/uL Pratt # (Auto) (0.0-0.8) K/uL Eos # (Auto) (0.0-0.7) K/uL Baso # (Auto) (0.0-0.2) K/uL pCO2 (35-45) mm/Hg pO2 (80-100) mm/Hg HCO3 (21-28) mmol/L ABG pH (7.35-7.45) ABG Total CO2 (22-28) mmol/L ABG O2 Saturation (95-98) % ABG O2 Content (15-23) ML/dL ABG Base Excess (-2.0-3.0) mmol/L ABG Hemoglobin (11.7-17.4) g/dL ABG Carboxyhemoglobin (0.5-1.5) % POC ABG HHb (Measured) (0.0-5.0) % ABG Methemoglobin (0.0-3.0) % ABG O2 Capacity (16-24) mL/dL Lupillo Test A-a O2 Difference mm/Hg Hgb O2 Saturation (95.0-98.0) % Mechanical Rate FiO2 % Tidal Volume PEEP Sodium (132-148) mmol/l Potassium (3.6-5.0) MMOL/L Chloride (98-107) mmol/L Carbon Dioxide (22-30) mmol/L Anion Gap (10-20) BUN (9-20) mg/dl Creatinine (0.8-1.5) mg/dl Est GFR ( Amer) Est GFR (Non-Af Amer) POC Glucose (mg/dL) 255 H 221 H (65-110) mg/dL Random Glucose (75-110) mg/dL Lactic Acid (0.7-2.1) mmol/L Calcium (8.4-10.2) mg/dL Phosphorus (2.5-4.5) mg/dl Magnesium (1.6-2.3) MG/DL Total Bilirubin (0.2-1.3) mg/dl AST (17-59) U/L ALT (21-72) U/L Alkaline Phosphatase (38-126) U/L Ammonia (9-33) umol/L Total Protein (6.3-8.2) G/DL Albumin (3.5-5.0) g/dL Globulin (2.2-3.9) gm/dL Albumin/Globulin Ratio (1.0-2.1) Procalcitonin (0.19-0.49) NG/ML Stool Occult Blood Negative (NEGATIVE) 01/16/19 01/16/19 Range/Units 09:50 04:10 WBC (4.8-10.8) K/uL RBC (4.40-5.90) Mil/uL Hgb (12.0-18.0) g/dL Hct (35.0-51.0) % MCV (80.0-94.0) fl MCH (27.0-31.0) pg MCHC (33.0-37.0) g/dL RDW (11.5-14.5) % Plt Count (130-400) K/uL MPV (7.2-11.7) fl Neut % (Auto) (50.0-75.0) % Lymph % (Auto) (20.0-40.0) % Pratt % (Auto) (0.0-10.0) % Eos % (Auto) (0.0-4.0) % Baso % (Auto) (0.0-2.0) % Neut # (Auto) (1.8-7.0) K/uL Lymph # (Auto) (1.0-4.3) K/uL Pratt # (Auto) (0.0-0.8) K/uL Eos # (Auto) (0.0-0.7) K/uL Baso # (Auto) (0.0-0.2) K/uL pCO2 (35-45) mm/Hg pO2 (80-100) mm/Hg HCO3 (21-28) mmol/L ABG pH (7.35-7.45) ABG Total CO2 (22-28) mmol/L ABG O2 Saturation (95-98) % ABG O2 Content (15-23) ML/dL ABG Base Excess (-2.0-3.0) mmol/L ABG Hemoglobin (11.7-17.4) g/dL ABG Carboxyhemoglobin (0.5-1.5) % POC ABG HHb (Measured) (0.0-5.0) % ABG Methemoglobin (0.0-3.0) % ABG O2 Capacity (16-24) mL/dL Lupillo Test A-a O2 Difference mm/Hg Hgb O2 Saturation (95.0-98.0) % Mechanical Rate FiO2 % Tidal Volume PEEP Sodium (132-148) mmol/l Potassium (3.6-5.0) MMOL/L Chloride (98-107) mmol/L Carbon Dioxide (22-30) mmol/L Anion Gap (10-20) BUN (9-20) mg/dl Creatinine (0.8-1.5) mg/dl Est GFR ( Amer) Est GFR (Non-Af Amer) POC Glucose (mg/dL) (65-110) mg/dL Random Glucose (75-110) mg/dL Lactic Acid 1.8 (0.7-2.1) mmol/L Calcium (8.4-10.2) mg/dL Phosphorus (2.5-4.5) mg/dl Magnesium (1.6-2.3) MG/DL Total Bilirubin (0.2-1.3) mg/dl AST (17-59) U/L ALT (21-72) U/L Alkaline Phosphatase (38-126) U/L Ammonia (9-33) umol/L Total Protein (6.3-8.2) G/DL Albumin (3.5-5.0) g/dL Globulin (2.2-3.9) gm/dL Albumin/Globulin Ratio (1.0-2.1) Procalcitonin 1.10 H (0.19-0.49) NG/ML Stool Occult Blood (NEGATIVE) Laboratory Results - last 24 hr 01/16/19 01/16/19 01/16/19 04:10 09:50 11:46 WBC RBC Hgb Hct MCV MCH MCHC RDW Plt Count MPV Neut % (Auto) Lymph % (Auto) Pratt % (Auto) Eos % (Auto) Baso % (Auto) Neut # (Auto) Lymph # (Auto) Pratt # (Auto) Eos # (Auto) Baso # (Auto) pCO2 pO2 HCO3 ABG pH ABG Total CO2 ABG O2 Saturation ABG O2 Content ABG Base Excess ABG Hemoglobin ABG Carboxyhemoglobin POC ABG HHb (Measured) ABG Methemoglobin ABG O2 Capacity Lupillo Test A-a O2 Difference Hgb O2 Saturation Mechanical Rate FiO2 Tidal Volume PEEP Sodium Potassium Chloride Carbon Dioxide Anion Gap BUN Creatinine Est GFR ( Amer) Est GFR (Non-Af Amer) POC Glucose (mg/dL) 221 H Random Glucose Lactic Acid 1.8 Calcium Phosphorus Magnesium Total Bilirubin AST ALT Alkaline Phosphatase Ammonia Total Protein Albumin Globulin Albumin/Globulin Ratio Procalcitonin 1.10 H Stool Occult Blood 01/16/19 01/16/19 01/16/19 16:00 16:34 20:59 WBC RBC Hgb Hct MCV MCH MCHC RDW Plt Count MPV Neut % (Auto) Lymph % (Auto) Pratt % (Auto) Eos % (Auto) Baso % (Auto) Neut # (Auto) Lymph # (Auto) Pratt # (Auto) Eos # (Auto) Baso # (Auto) pCO2 pO2 HCO3 ABG pH ABG Total CO2 ABG O2 Saturation ABG O2 Content ABG Base Excess ABG Hemoglobin ABG Carboxyhemoglobin POC ABG HHb (Measured) ABG Methemoglobin ABG O2 Capacity Lupillo Test A-a O2 Difference Hgb O2 Saturation Mechanical Rate FiO2 Tidal Volume PEEP Sodium Potassium Chloride Carbon Dioxide Anion Gap BUN Creatinine Est GFR ( Amer) Est GFR (Non-Af Amer) POC Glucose (mg/dL) 255 H 292 H Random Glucose Lactic Acid Calcium Phosphorus Magnesium Total Bilirubin AST ALT Alkaline Phosphatase Ammonia Total Protein Albumin Globulin Albumin/Globulin Ratio Procalcitonin Stool Occult Blood Negative 01/17/19 01/17/19 01/17/19 05:10 05:24 06:00 WBC 8.4 RBC 3.06 L Hgb 11.9 L Hct 34.4 L MCV 112.4 H MCH 38.9 H MCHC 34.6 RDW 17.7 H Plt Count 108 L D MPV 11.0 Neut % (Auto) 70.7 Lymph % (Auto) 9.0 L Pratt % (Auto) 17.3 H Eos % (Auto) 2.9 Baso % (Auto) 0.1 Neut # (Auto) 5.9 Lymph # (Auto) 0.8 L Pratt # (Auto) 1.5 H Eos # (Auto) 0.2 Baso # (Auto) 0.0 pCO2 34 L pO2 83 HCO3 28.9 H ABG pH 7.52 H ABG Total CO2 28.8 H ABG O2 Saturation 98.7 H ABG O2 Content 18.1 ABG Base Excess 5.1 H ABG Hemoglobin 13.5 ABG Carboxyhemoglobin 1.9 H POC ABG HHb (Measured) 1.3 ABG Methemoglobin 1.5 ABG O2 Capacity 18.3 Lupillo Test Yes A-a O2 Difference 88.0 Hgb O2 Saturation 95.3 Mechanical Rate 10 FiO2 30.0 Tidal Volume 400 PEEP 5 Sodium Potassium Chloride Carbon Dioxide Anion Gap BUN Creatinine Est GFR ( Amer) Est GFR (Non-Af Amer) POC Glucose (mg/dL) 308 H Random Glucose Lactic Acid Calcium Phosphorus Magnesium Total Bilirubin AST ALT Alkaline Phosphatase Ammonia Total Protein Albumin Globulin Albumin/Globulin Ratio Procalcitonin Stool Occult Blood 01/17/19 01/17/19 06:00 06:20 WBC RBC Hgb Hct MCV MCH MCHC RDW Plt Count MPV Neut % (Auto) Lymph % (Auto) Pratt % (Auto) Eos % (Auto) Baso % (Auto) Neut # (Auto) Lymph # (Auto) Pratt # (Auto) Eos # (Auto) Baso # (Auto) pCO2 pO2 HCO3 ABG pH ABG Total CO2 ABG O2 Saturation ABG O2 Content ABG Base Excess ABG Hemoglobin ABG Carboxyhemoglobin POC ABG HHb (Measured) ABG Methemoglobin ABG O2 Capacity Lupillo Test A-a O2 Difference Hgb O2 Saturation Mechanical Rate FiO2 Tidal Volume PEEP Sodium 138 Potassium 4.2 Chloride 105 Carbon Dioxide 27 Anion Gap 10 BUN 97 H Creatinine 1.3 Est GFR ( Amer) > 60 Est GFR (Non-Af Amer) 55 POC Glucose (mg/dL) Random Glucose 299 H Lactic Acid Calcium 8.3 L Phosphorus 3.9 Magnesium 3.7 H Total Bilirubin 2.4 H AST 91 H ALT 60 Alkaline Phosphatase 239 H Ammonia 214 H* D Total Protein 5.7 L Albumin 2.1 L Globulin 3.5 Albumin/Globulin Ratio 0.6 L Procalcitonin Stool Occult Blood Radiology Impressions: Radiology Impressions Head CT 01/15/19 16:02 IMPRESSION: No acute intracranial findings Abdomen/Pelvis CT 01/15/19 16:44 IMPRESSION: Possible gastritis and enteritis. No acute intra-abdominal findings. See comments Chest CT 01/15/19 17:23 IMPRESSION: There is dense subsegmental consolidation of both lung bases with air bronchograms. This could represent pneumonia or atelectasis. The endotracheal and nasogastric tubes are in satisfactory position Chest X-Ray 01/16/19 05:00 IMPRESSION: Improperly positioned endotracheal tube. The tip is in the right mainstem bronchus. Fingerstick Blood Sugar Results: 299 Review of Systems - Review of Systems Review of Systems: Unable to get ROS Assessment/Plan (1) Acute respiratory failure Current Visit: Yes Status: Acute Priority: High Comment: Patient orally intubated and mechanically ventilated due to altered mental status from hepatic encephalopathy and hyperammonemia (worsened today) Continue lactulose 20 gm q4h and rifaximin 550 mg BID; mag citrate given today Frequent neuro check Vent weaning to be started when mental status improves Maintain aspiration precaution Daily chest x-ray and ABG while intubated Mucomyst q12 with albuterol for mucus plug Tube feeding rate adjusted after discussion with talent development coordinator. Continue feeding to Suplena at 50 cc/hr. (2) Hospital-acquired bacterial pneumonia Current Visit: Yes Status: Acute Comment: Sputum culture on 01/10/19 showed Pseudomonas and Klebsiella chest CT on 01/15/19 shows posterior bibasilar pneumonic consolidation. c/w Cefepime 1 gm q24 and Vancomycin 750 mg q24hr -c/w cipro 400 mg ivpb q18 Hr to cover for double gram negative coverage. -Consider ID consult if patient develops fever or elevated WBC (3) Altered mental status Current Visit: Yes Status: Acute Priority: High Comment: head CT on 01/15/19 is negative for intracranial pathology Worsened likely secondary to worsening ammonia level (4) Colitis Current Visit: Yes Status: Acute Comment: On cipro and Maxipime (5) Hepatic encephalopathy Current Visit: Yes Status: Acute Priority: High Comment: Wosening mental status today c/w Vancomycin and Cefepime in renal dose c/w lactulose and rifaximin Will given one dose of magnesium citrate (6) NIRAJ (acute kidney injury) Current Visit: Yes Status: Acute Comment: Improving f/u AM labs Avoid nephrotoxic agents (7) Hyperammonemia Current Visit: Yes Status: Acute Priority: High Comment: c/w lactulose and rifaximin (8) Hyponatremia Current Visit: Yes Status: Acute Comment: Resolved [employer] Creative Chairman Dr. banda on board -f/u AM labs (9) Thrombocytopenia Current Visit: Yes Status: Acute Comment: improving (10) DM type 2 (diabetes mellitus, type 2) Current Visit: No Status: Acute Comment: on levemir 15 units SC daily Blood sugar is 480 this mornning. Will given 4 units regular insulin IV and 10 units SC stat Will increase basal insulin based on blood glucose (11) UTI (urinary tract infection) Current Visit: Yes Status: Acute Comment: on tx <Sinan Santana - Last Filed: 01/17/19 17:45> Assessment/Plan - Assessment and Plan (Free Text) Assessment: Attestation: Patient seen and examined at the bedside with Resident Dr. Lizeth Paris; and I agree with his outline of plans and management documented above as discussed on AM rounds reflecting my review of all applicable clinical data, and participation in the care of the patient throughout the day in ICU; today, January 17, 2019.
--- NOTE | 2019-01-17 10:13 | CP.PCM.PN ---
Subjective - Date & Time of Evaluation Date of Evaluation: 01/16/19 Objective - Vital Signs/Intake and Output Vital Signs (last 24 hours): Temp Pulse Resp BP Pulse Ox 100.4 F H 93 H 26 H 134/61 98 01/17/19 08:00 01/17/19 09:02 01/17/19 08:00 01/17/19 09:02 01/17/19 08:00 Intake and Output: 01/17/19 01/17/19 06:59 18:59 Intake Total 1110 110 Balance 1110 110 - Medications Medications: Current Medications Acetylcysteine (Acetylcysteine 20%) 2 ml INH RBID JOANNA Albuterol Sulfate (Albuterol 0.083% Inhal Mana (2.5 Mg/3 Ml) Ud) 2.5 mg INH Q12 JOANNA Carvedilol (Coreg) 6.25 mg NG Q12 JOANNA Last Admin: 01/17/19 09:02 Dose: 6.25 mg Cilostazol (Pletal) 50 mg PO Q12 JOANNA Last Admin: 01/07/19 10:22 Dose: Not Given Folic Acid (Folic Acid) 1 mg GT DAILY JOANNA Last Admin: 01/17/19 09:00 Dose: 1 mg Hydralazine HCl (Apresoline) 25 mg PO TID JOANNA Last Admin: 01/17/19 08:55 Dose: Not Given Vancomycin HCl 750 mg/ Sodium (Chloride) 250 mls @ 166.667 mls/hr IVPB DAILY JOANNA; Protocol Last Admin: 01/16/19 16:41 Dose: 166.667 mls/hr Cefepime HCl 1 gm/ Sodium (Chloride) 100 mls @ 100 mls/hr IVPB DAILY JOANNA; Protocol Last Admin: 01/17/19 08:54 Dose: 100 mls/hr Ciprofloxacin (Cipro 400mg/200ml Dsw) 400 mg in 200 mls @ 200 mls/hr IVPB Q18H JOANNA; Protocol Last Admin: 01/17/19 09:31 Dose: 200 mls/hr Insulin Detemir (Levemir) 15 units SC DAILY JOANNA Last Admin: 01/17/19 09:00 Dose: 15 units Insulin Human Regular (Humulin R) 0 units SC Q6H JOANNA; Protocol Last Admin: 01/17/19 05:51 Dose: 4 unit Lactulose (Enulose) 20 gm GT Q4H JOANNA Last Admin: 01/17/19 09:40 Dose: 20 gm Levothyroxine Sodium (Synthroid) 50 mcg PO DAILY@0630 [facility] Last Admin: 01/17/19 05:52 Dose: 50 mcg Pantoprazole Sodium (Protonix Susp) 40 mg NG DAILY [facility] Last Admin: 01/17/19 09:00 Dose: 40 mg Rifaximin (Xifaxan) 550 mg PO BID [facility]; Protocol Last Admin: 01/17/19 09:00 Dose: 550 mg Thiamine HCl (Vitamin B1 Tab) 100 mg GT DAILY [facility] Last Admin: 01/17/19 09:00 Dose: 100 mg - Labs Labs: 01/17/19 06:00 01/17/19 06:00 PT 16.1 Seconds (9.8-13.1) H 01/11/19 05:33 INR 1.4 01/11/19 05:33 APTT 32.9 Seconds (25.6-37.1) 01/11/19 05:33 Assessment and Plan (1) Acute respiratory failure Status: Acute (2) Altered mental status Status: Acute (3) Alcoholic cirrhosis of liver Status: Acute (4) Hepatic encephalopathy Status: Acute (5) DM type 2 (diabetes mellitus, type 2) Status: Acute
--- NOTE | 2019-01-17 10:19 | CP.PCM.PN ---
Subjective - Date & Time of Evaluation Date of Evaluation: 01/17/19 Time of Evaluation: 10:19 - Subjective Subjective: Patient remain on respirator with NG tube receiving 150 cc flushing of water every 6 hours we may have to increase that if serum sodium continues to rise by tomorrow Family at the bedside Patient remains encephalopathic sedated intubated Objective - Vital Signs/Intake and Output Vital Signs (last 24 hours): Temp Pulse Resp BP Pulse Ox 100.4 F H 93 H 26 H 134/61 98 01/17/19 08:00 01/17/19 09:02 01/17/19 08:00 01/17/19 09:02 01/17/19 08:00 Intake and Output: 01/17/19 01/17/19 06:59 18:59 Intake Total 1110 110 Balance 1110 110 - Medications Medications: Current Medications Acetylcysteine (Acetylcysteine 20%) 2 ml INH RBID JOANNA Albuterol Sulfate (Albuterol 0.083% Inhal Mana (2.5 Mg/3 Ml) Ud) 2.5 mg INH Q12 JOANNA Carvedilol (Coreg) 6.25 mg NG Q12 [facility] Last Admin: 01/17/19 09:02 Dose: 6.25 mg Cilostazol (Pletal) 50 mg PO Q12 JOANNA Last Admin: 01/07/19 10:22 Dose: Not Given Folic Acid (Folic Acid) 1 mg GT DAILY [facility] Last Admin: 01/17/19 09:00 Dose: 1 mg Hydralazine HCl (Apresoline) 25 mg PO TID JOANNA Last Admin: 01/17/19 08:55 Dose: Not Given Vancomycin HCl 750 mg/ Sodium (Chloride) 250 mls @ 166.667 mls/hr IVPB DAILY [facility]; Protocol Last Admin: 01/16/19 16:41 Dose: 166.667 mls/hr Cefepime HCl 1 gm/ Sodium (Chloride) 100 mls @ 100 mls/hr IVPB DAILY [facility]; Protocol Last Admin: 01/17/19 08:54 Dose: 100 mls/hr Ciprofloxacin (Cipro 400mg/200ml Dsw) 400 mg in 200 mls @ 200 mls/hr IVPB Q18H JOANNA; Protocol Last Admin: 01/17/19 09:31 Dose: 200 mls/hr Insulin Detemir (Levemir) 15 units SC DAILY [facility] Last Admin: 01/17/19 09:00 Dose: 15 units Insulin Human Regular (Humulin R) 0 units SC Q6H [facility]; Protocol Last Admin: 01/17/19 05:51 Dose: 4 unit Lactulose (Enulose) 20 gm GT Q4H [facility] Last Admin: 01/17/19 09:40 Dose: 20 gm Levothyroxine Sodium (Synthroid) 50 mcg PO DAILY@0630 [facility] Last Admin: 01/17/19 05:52 Dose: 50 mcg Pantoprazole Sodium (Protonix Susp) 40 mg NG DAILY [facility] Last Admin: 01/17/19 09:00 Dose: 40 mg Rifaximin (Xifaxan) 550 mg PO BID [facility]; Protocol Last Admin: 01/17/19 09:00 Dose: 550 mg Thiamine HCl (Vitamin B1 Tab) 100 mg GT DAILY [facility] Last Admin: 01/17/19 09:00 Dose: 100 mg - Labs Labs: 01/17/19 06:00 01/17/19 06:00 PT 16.1 Seconds (9.8-13.1) H 01/11/19 05:33 INR 1.4 01/11/19 05:33 APTT 32.9 Seconds (25.6-37.1) 01/11/19 05:33 - Constitutional Appears: No Acute Distress - Eye Exam Eye Exam: Conjunctival injection - ENT Exam ENT Exam: Mucous Membranes Moist - Neck Exam Neck Exam: Lymphadenopathy - Respiratory Exam Respiratory Exam: Rhonchi. absent: Chest Wall Tenderness - Cardiovascular Exam Cardiovascular Exam: absent: Gallop, JVD, Rubs - GI/Abdominal Exam GI & Abdominal Exam: Soft, Normal Bowel Sounds - Extremities Exam Extremities Exam: absent: Calf Tenderness - Back Exam Back Exam: absent: CVA tenderness (L), CVA tenderness (R) - Neurological Exam Neurological Exam: Altered - Psychiatric Exam Psychiatric exam: Flat Affect - Skin Skin Exam: absent: Cyanosis Assessment and Plan (1) Hyponatremia Status: Acute (2) NIRAJ (acute kidney injury) Assessment & Plan: Acute kidney injury with hepatorenal syndrome most likely Hyponatremia corrected serum sodium 138 NG tube feeding noted with 300 cc of water has been given every 6 hours through the NG tube. Patient diagnosed with liver cirrhosis and liver malignancy as noted Hepatic encephalopathy Status post chemotherapy apparently Diabetes mellitus Respiratory failure Recommendation Serum sodium and electrolyte corrected Acute kidney injury improving serum creatinine trending down Antibiotics adjusted per GFR Respiratory management as per primary team and the rest of the intensive care management Status: Acute Status: Acute (3) Acute respiratory failure Status: Acute (4) Altered mental status Status: Acute (5) Hepatic encephalopathy Status: Acute (6) Hyperammonemia Status: Acute (7) Liver mass Status: Acute (8) Thrombocytopenia Status: Acute
--- NOTE | 2019-01-17 11:12 | RAD ---
Date of service: 01/17/2019 HISTORY: ETT placement COMPARISON: CT chest without contrast from 01/15/2019 FINDINGS: Endotracheal tube terminates 10 mm proximal to the montserrat. The nasogastric tube terminates in the stomach. LUNGS: There are low lung volumes. There is mild pulmonary venous congestion. PLEURA: Small effusions. No pneumothorax. CARDIOVASCULAR: The heart is normal in size. No aortic atherosclerotic calcifications present. OSSEOUS STRUCTURES: Within normal limits for the patient's age. VISUALIZED UPPER ABDOMEN: Normal. OTHER FINDINGS: None. IMPRESSION: No stable position of endotracheal and nasogastric tubes. Suspect small effusions.
[2019-01-17] MEDS ORDERED: Insulin Regular 100 units/ml IV STA (11:14)
[2019-01-17] MEDS ORDERED: Insulin Regular 100 units/ml SC STA (11:21)
[2019-01-17] MEDS: Acetylcysteine 20% Inhal Soln (4ml) INH SCH ×2 (11:44→20:04)
[2019-01-17] MEDS: Albuterol 0.083% Inhal Sol (2.5 mg/3 mL) UD INH SCH ×2 (11:44→20:04)
[2019-01-17] MEDS ORDERED: Sodium Chloride 3% for Inhalation 4 ML VIAL.NEB IH PRN (17:17)
[2019-01-18] MEDS: Ciprofloxacin 400mg/200ml D5W 400 MG/200 ML BAG IVPB SCH (02:14)
[2019-01-18 05:03] LABS: ABG ALLEN TEST YES; ARTERIAL BLOOD GAS HCO3 29.4 mmol/L (21-28); ARTERIAL BLOOD GAS HEMOGLOBIN 11.9 g/dL (11.7-17.4); ARTERIAL BLOOD GAS O2 CAPACITY 16.3 mL/dL (16-24); ARTERIAL BLOOD GAS O2 CONTENT 16.3 ML/dL (15-23); ARTERIAL BLOOD GAS O2 SAT 99.7 % (95-98); ARTERIAL BLOOD GAS PCO2 31 mm/Hg (35-45); ARTERIAL BLOOD GAS PH 7.56 (7.35-7.45); ARTERIAL BLOOD GAS PO2 106 mm/Hg (80-100); ARTERIAL BLOOD GAS TCO2 28.8 mmol/L (22-28)
[2019-01-18] MEDS: Insulin Regular 100 units/ml SC SCH ×4 (05:06→17:00)
[2019-01-18 05:32] LABS: BASO % 0.3 % (0.0-2.0); EOS # 0.2 K/uL (0.0-0.7); EOS % 1.6 % (0.0-4.0); HEMOGLOBIN 11.8 g/dL (12.0-18.0); LYMPH # 0.7 K/uL (1.0-4.3); LYMPH % 7.5 % (20.0-40.0); MEAN CELL VOLUME 111.8 fl (80.0-94.0); MEAN CORPUSCULAR HEMOGLOBIN 38.9 pg (27.0-31.0); MEAN CORPUSCULAR HGB CONC 34.8 g/dL (33.0-37.0); MEAN PLATELET VOLUME 10.7 fl (7.2-11.7); MONO # 1.7 K/uL (0.0-0.8); NEUT # 7.4 K/uL (1.8-7.0); NEUT % 73.6 % (50.0-75.0); NRBC % 0.1 % (0.0-0.0); RBC 3.03 Mil/uL (4.40-5.90); RED CELL DISTRIBUTION WIDTH 17.8 % (11.5-14.5)
[2019-01-18] MEDS: Levothyroxine 50 MCG TAB PO SCH (05:47)
[2019-01-18 05:52] LABS: ALB/GLOB RATIO 0.6 (1.0-2.1); ALBUMIN 2.1 g/dL (3.5-5.0); ALT/SGPT 65 U/L (21-72); AST/SGOT 109 U/L (17-59); BLOOD UREA NITROGEN 85 mg/dl (9-20); CALCIUM 8.3 mg/dL (8.4-10.2); GFR NON-AFRICAN AMERICAN 50
[2019-01-18] MEDS: Albuterol 0.083% Inhal Sol (2.5 mg/3 mL) UD INH SCH ×2 (07:36→19:26)
[2019-01-18] MEDS: Acetylcysteine 20% Inhal Soln (4ml) INH SCH ×2 (07:37→19:26)
--- NOTE | 2019-01-18 08:16 | CP.CCUPN ---
<ClareSultan moni - Last Filed: 01/18/19 17:40> CCU Subjective - Physician Review Subjective (Free Text): 01/18/19 8:42 68 yo Male with PMHx of DMII, Gastritis, HTN, Hypercholesterolemia, Chronic Kidney Disease, liver cirrhosis, hepatic encephalopathy and liver malignancy was brought in to the emergency room on 01/06/19 by the family for evaluation of altered mental status, confusion and abdominal pain. Patient was initially admitted to Med/surg unit, however was transferred to the intensive care unit later in the evening for his worsening of his mental status and intubated since then. Patient seen and evaluated this AM. On ventilation since 01/06/19 (Day 13) with current vent setting PRVC/AC 10, 400, PEEP 5 with FiO2 of 30%, saturating 97% Overnight events and nurses notes reviewed. Continue to remain sedated and comatose. Had fever of 101.1 F this morning, otherwise stable vitals. ID consulted this afternoon. OG tube feeding with Suplena at 50 ml/hr with 150 cc saline flush every 4 hours. Still have hyperglycemia in 300's. Started on insulin drip this afternoon. Patient had 3 BM yesterday. Ammonia level improved to 119 this morning, however, patient continues to remain comatose. Patient was given Mag Citrate again this morning. CCU Objective - Vital Signs / Intake & Output Vital Signs (Last 4 hours): Vital Signs Pulse Resp BP Pulse Ox 01/18/19 06:00 86 22 121/51 L 99 Intake and Output (Last 8hrs): Intake & Output 01/17/19 01/18/19 01/18/19 22:59 06:59 14:59 Intake Total 730 740 Output Total 350 250 Balance 380 490 Weight 97.976 kg Intake: Intake, Piggyback 250 Tube Feeding 330 440 Free Water Flush 150 300 Output: Urine 350 250 Urine, Voided 350 250 Other: # Bowel Movements 1 - Physical Exam Head: Positive for: Atraumatic, Normocephalic Pupils: Positive for: PERRL Extroacular Muscles: Positive for: EOMI Conjunctiva: Positive for: Icteric Ears: Positive for: Normal Mouth: Positive for: Moist Mucous Membranes Nose (External): Positive for: Atraumatic Respiratory/Chest: Positive for: Clear to Auscultation, Good Air Exchange Cardiovascular: Positive for: Regular Rate and Rhythm Abdomen: Positive for: Normal Bowel Sounds. Negative for: Tenderness, Distention Upper Extremity: Positive for: Edema, Swelling (b/l upper extremities swelling and edema, 2+) Lower Extremity: Positive for: Edema Psychiatric: Negative for: Alert - Medications Active Medications: Active Medications Generic Name Dose Route Start Last Admin Trade Name Freq PRN Reason Stop Dose Admin Acetylcysteine 2 ml 01/17/19 20:00 01/18/19 07:37 Acetylcysteine 20% INH 2 ml RBID JOANNA Administration Albuterol Sulfate 2.5 mg 01/17/19 10:00 01/18/19 07:36 Albuterol 0.083% Inhal Mana (2.5 Mg/3 Ml) Ud INH 2.5 mg Q12 JOANNA Administration Carvedilol 6.25 mg 01/06/19 21:00 01/17/19 20:25 Coreg NG 6.25 mg Q12 JOANNA Administration Cilostazol 50 mg 01/06/19 10:30 01/07/19 10:22 Pletal PO Not Given Q12 JOANNA Folic Acid 1 mg 01/10/19 09:00 01/17/19 09:00 Folic Acid GT 1 mg DAILY JOANNA Administration Hydralazine HCl 25 mg 01/12/19 13:00 01/17/19 17:16 Apresoline PO 25 mg TID JOANNA Administration Cefepime HCl 1 gm/ Sodium 100 mls @ 100 mls/hr 01/15/19 17:00 01/17/19 08:54 Chloride IVPB 100 mls/hr DAILY JOANNA Administration Protocol Ciprofloxacin 400 mg in 200 mls @ 200 mls/hr 01/16/19 15:15 01/18/19 02:14 Cipro 400mg/200ml Dsw IVPB 200 mls/hr Q18H JOANNA Administration Protocol Vancomycin HCl 750 mg/ Sodium 250 mls @ 166.667 mls/hr 01/17/19 16:30 01/17/19 17:14 Chloride IVPB 166.667 mls/hr DAILY@1630 JOANNA Administration Protocol Insulin Detemir 20 units 01/17/19 21:00 01/17/19 20:18 Levemir SC 20 units Q12 JOANNA Administration Insulin Human Regular 0 units 01/18/19 08:00 01/18/19 08:08 Humulin R SC 8 u Q4H JOANNA Administration Protocol Lactulose 20 gm 01/13/19 06:15 01/18/19 05:47 Enulose GT 20 gm Q4H JOANNA Administration Levothyroxine Sodium 50 mcg 01/09/19 06:30 01/18/19 05:47 Synthroid PO 50 mcg DAILY@0630 JOANNA Administration Pantoprazole Sodium 40 mg 01/07/19 13:15 01/17/19 09:00 Protonix Susp NG 40 mg DAILY JOANNA Administration Rifaximin 550 mg 01/11/19 17:00 01/17/19 17:17 Xifaxan PO 550 mg BID JOANNA Administration Protocol Thiamine HCl 100 mg 01/10/19 09:00 01/17/19 09:00 Vitamin B1 Tab GT 100 mg DAILY JOANNA Administration - Patient Studies Lab Studies: Microbiology Studies 01/17/19 18:20 Gram Stain - Final Sputum 01/15/19 18:40 Blood Culture - Preliminary Blood NO GROWTH AFTER 48 HOURS 01/15/19 17:45 Blood Culture - Preliminary Blood NO GROWTH AFTER 48 HOURS 01/15/19 07:16 Urine Culture - Preliminary Urine,Howe Gram Pos Cocci In Chains Lab Studies 01/18/19 01/18/19 01/18/19 Range/Units 05:10 05:10 05:10 WBC (4.8-10.8) K/uL RBC (4.40-5.90) Mil/uL Hgb (12.0-18.0) g/dL Hct (35.0-51.0) % MCV (80.0-94.0) fl MCH (27.0-31.0) pg MCHC (33.0-37.0) g/dL RDW (11.5-14.5) % Plt Count (130-400) K/uL MPV (7.2-11.7) fl Neut % (Auto) (50.0-75.0) % Lymph % (Auto) (20.0-40.0) % [place] % (Auto) (0.0-10.0) % Eos % (Auto) (0.0-4.0) % Baso % (Auto) (0.0-2.0) % Neut # (Auto) (1.8-7.0) K/uL Lymph # (Auto) (1.0-4.3) K/uL [place] # (Auto) (0.0-0.8) K/uL Eos # (Auto) (0.0-0.7) K/uL Baso # (Auto) (0.0-0.2) K/uL pCO2 (35-45) mm/Hg pO2 (80-100) mm/Hg HCO3 (21-28) mmol/L ABG pH (7.35-7.45) ABG Total CO2 (22-28) mmol/L ABG O2 Saturation (95-98) % ABG O2 Content (15-23) ML/dL ABG Base Excess (-2.0-3.0) mmol/L ABG Hemoglobin (11.7-17.4) g/dL ABG Carboxyhemoglobin (0.5-1.5) % POC ABG HHb (Measured) (0.0-5.0) % ABG Methemoglobin (0.0-3.0) % ABG O2 Capacity (16-24) mL/dL Lupillo Test A-a O2 Difference mm/Hg Hgb O2 Saturation (95.0-98.0) % Vent Mode Mechanical Rate FiO2 % Tidal Volume PEEP Sodium 140 (132-148) mmol/l Potassium 4.8 (3.6-5.0) MMOL/L Chloride 106 (98-107) mmol/L Carbon Dioxide 28 (22-30) mmol/L Anion Gap 11 (10-20) BUN 85 H (9-20) mg/dl Creatinine 1.4 (0.8-1.5) mg/dl Est GFR ( Amer) > 60 Est GFR (Non-Af Amer) 50 POC Glucose (mg/dL) (65-110) mg/dL Random Glucose 398 H (75-110) mg/dL Lactic Acid 2.6 H (0.7-2.1) mmol/L Calcium 8.3 L (8.4-10.2) mg/dL Phosphorus 2.7 (2.5-4.5) mg/dl Magnesium 3.9 H (1.6-2.3) MG/DL Total Bilirubin 1.8 H (0.2-1.3) mg/dl AST 109 H (17-59) U/L ALT 65 (21-72) U/L Alkaline Phosphatase 331 H D (38-126) U/L Ammonia 119 H D (9-33) umol/L Total Protein 5.6 L (6.3-8.2) G/DL Albumin 2.1 L (3.5-5.0) g/dL Globulin 3.5 (2.2-3.9) gm/dL Albumin/Globulin Ratio 0.6 L (1.0-2.1) 01/18/19 01/18/19 01/18/19 Range/Units 05:10 05:05 04:56 WBC 10.0 (4.8-10.8) K/uL RBC 3.03 L (4.40-5.90) Mil/uL Hgb 11.8 L (12.0-18.0) g/dL Hct 33.9 L (35.0-51.0) % MCV 111.8 H (80.0-94.0) fl MCH 38.9 H (27.0-31.0) pg MCHC 34.8 (33.0-37.0) g/dL RDW 17.8 H (11.5-14.5) % Plt Count 116 L (130-400) K/uL MPV 10.7 (7.2-11.7) fl Neut % (Auto) 73.6 (50.0-75.0) % Lymph % (Auto) 7.5 L (20.0-40.0) % [place] % (Auto) 17.0 H (0.0-10.0) % Eos % (Auto) 1.6 (0.0-4.0) % Baso % (Auto) 0.3 (0.0-2.0) % Neut # (Auto) 7.4 H (1.8-7.0) K/uL Lymph # (Auto) 0.7 L (1.0-4.3) K/uL [place] # (Auto) 1.7 H (0.0-0.8) K/uL Eos # (Auto) 0.2 (0.0-0.7) K/uL Baso # (Auto) 0.0 (0.0-0.2) K/uL pCO2 31 L (35-45) mm/Hg pO2 106 H (80-100) mm/Hg HCO3 29.4 H (21-28) mmol/L ABG pH 7.56 H (7.35-7.45) ABG Total CO2 28.8 H (22-28) mmol/L ABG O2 Saturation 99.7 H (95-98) % ABG O2 Content 16.3 (15-23) ML/dL ABG Base Excess 5.8 H (-2.0-3.0) mmol/L ABG Hemoglobin 11.9 (11.7-17.4) g/dL ABG Carboxyhemoglobin 1.7 H (0.5-1.5) % POC ABG HHb (Measured) 0.3 (0.0-5.0) % ABG Methemoglobin 1.3 (0.0-3.0) % ABG O2 Capacity 16.3 (16-24) mL/dL Lupillo Test Yes A-a O2 Difference 69.0 mm/Hg Hgb O2 Saturation 96.7 (95.0-98.0) % Vent Mode A/c Mechanical Rate 10 FiO2 30.0 % Tidal Volume 400 PEEP 5 Sodium (132-148) mmol/l Potassium (3.6-5.0) MMOL/L Chloride (98-107) mmol/L Carbon Dioxide (22-30) mmol/L Anion Gap (10-20) BUN (9-20) mg/dl Creatinine (0.8-1.5) mg/dl Est GFR ( Amer) Est GFR (Non-Af Amer) POC Glucose (mg/dL) 363 H (65-110) mg/dL Random Glucose (75-110) mg/dL Lactic Acid (0.7-2.1) mmol/L Calcium (8.4-10.2) mg/dL Phosphorus (2.5-4.5) mg/dl Magnesium (1.6-2.3) MG/DL Total Bilirubin (0.2-1.3) mg/dl AST (17-59) U/L ALT (21-72) U/L Alkaline Phosphatase (38-126) U/L Ammonia (9-33) umol/L Total Protein (6.3-8.2) G/DL Albumin (3.5-5.0) g/dL Globulin (2.2-3.9) gm/dL Albumin/Globulin Ratio (1.0-2.1) 01/17/19 01/17/19 01/17/19 Range/Units 23:05 20:22 15:40 WBC (4.8-10.8) K/uL RBC (4.40-5.90) Mil/uL Hgb (12.0-18.0) g/dL Hct (35.0-51.0) % MCV (80.0-94.0) fl MCH (27.0-31.0) pg MCHC (33.0-37.0) g/dL RDW (11.5-14.5) % Plt Count (130-400) K/uL MPV (7.2-11.7) fl Neut % (Auto) (50.0-75.0) % Lymph % (Auto) (20.0-40.0) % [place] % (Auto) (0.0-10.0) % Eos % (Auto) (0.0-4.0) % Baso % (Auto) (0.0-2.0) % Neut # (Auto) (1.8-7.0) K/uL Lymph # (Auto) (1.0-4.3) K/uL [place] # (Auto) (0.0-0.8) K/uL Eos # (Auto) (0.0-0.7) K/uL Baso # (Auto) (0.0-0.2) K/uL pCO2 (35-45) mm/Hg pO2 (80-100) mm/Hg HCO3 (21-28) mmol/L ABG pH (7.35-7.45) ABG Total CO2 (22-28) mmol/L ABG O2 Saturation (95-98) % ABG O2 Content (15-23) ML/dL ABG Base Excess (-2.0-3.0) mmol/L ABG Hemoglobin (11.7-17.4) g/dL ABG Carboxyhemoglobin (0.5-1.5) % POC ABG HHb (Measured) (0.0-5.0) % ABG Methemoglobin (0.0-3.0) % ABG O2 Capacity (16-24) mL/dL Lupillo Test A-a O2 Difference mm/Hg Hgb O2 Saturation (95.0-98.0) % Vent Mode Mechanical Rate FiO2 % Tidal Volume PEEP Sodium (132-148) mmol/l Potassium (3.6-5.0) MMOL/L Chloride (98-107) mmol/L Carbon Dioxide (22-30) mmol/L Anion Gap (10-20) BUN (9-20) mg/dl Creatinine (0.8-1.5) mg/dl Est GFR ( Amer) Est GFR (Non-Af Amer) POC Glucose (mg/dL) 385 H 350 H 335 H (65-110) mg/dL Random Glucose (75-110) mg/dL Lactic Acid (0.7-2.1) mmol/L Calcium (8.4-10.2) mg/dL Phosphorus (2.5-4.5) mg/dl Magnesium (1.6-2.3) MG/DL Total Bilirubin (0.2-1.3) mg/dl AST (17-59) U/L ALT (21-72) U/L Alkaline Phosphatase (38-126) U/L Ammonia (9-33) umol/L Total Protein (6.3-8.2) G/DL Albumin (3.5-5.0) g/dL Globulin (2.2-3.9) gm/dL Albumin/Globulin Ratio (1.0-2.1) 01/17/19 Range/Units 11:10 WBC (4.8-10.8) K/uL RBC (4.40-5.90) Mil/uL Hgb (12.0-18.0) g/dL Hct (35.0-51.0) % MCV (80.0-94.0) fl MCH (27.0-31.0) pg MCHC (33.0-37.0) g/dL RDW (11.5-14.5) % Plt Count (130-400) K/uL MPV (7.2-11.7) fl Neut % (Auto) (50.0-75.0) % Lymph % (Auto) (20.0-40.0) % [place] % (Auto) (0.0-10.0) % Eos % (Auto) (0.0-4.0) % Baso % (Auto) (0.0-2.0) % Neut # (Auto) (1.8-7.0) K/uL Lymph # (Auto) (1.0-4.3) K/uL [place] # (Auto) (0.0-0.8) K/uL Eos # (Auto) (0.0-0.7) K/uL Baso # (Auto) (0.0-0.2) K/uL pCO2 (35-45) mm/Hg pO2 (80-100) mm/Hg HCO3 (21-28) mmol/L ABG pH (7.35-7.45) ABG Total CO2 (22-28) mmol/L ABG O2 Saturation (95-98) % ABG O2 Content (15-23) ML/dL ABG Base Excess (-2.0-3.0) mmol/L ABG Hemoglobin (11.7-17.4) g/dL ABG Carboxyhemoglobin (0.5-1.5) % POC ABG HHb (Measured) (0.0-5.0) % ABG Methemoglobin (0.0-3.0) % ABG O2 Capacity (16-24) mL/dL Lupillo Test A-a O2 Difference mm/Hg Hgb O2 Saturation (95.0-98.0) % Vent Mode Mechanical Rate FiO2 % Tidal Volume PEEP Sodium (132-148) mmol/l Potassium (3.6-5.0) MMOL/L Chloride (98-107) mmol/L Carbon Dioxide (22-30) mmol/L Anion Gap (10-20) BUN (9-20) mg/dl Creatinine (0.8-1.5) mg/dl Est GFR ( Amer) Est GFR (Non-Af Amer) POC Glucose (mg/dL) 480 H* (65-110) mg/dL Random Glucose (75-110) mg/dL Lactic Acid (0.7-2.1) mmol/L Calcium (8.4-10.2) mg/dL Phosphorus (2.5-4.5) mg/dl Magnesium (1.6-2.3) MG/DL Total Bilirubin (0.2-1.3) mg/dl AST (17-59) U/L ALT (21-72) U/L Alkaline Phosphatase (38-126) U/L Ammonia (9-33) umol/L Total Protein (6.3-8.2) G/DL Albumin (3.5-5.0) g/dL Globulin (2.2-3.9) gm/dL Albumin/Globulin Ratio (1.0-2.1) Laboratory Results - last 24 hr 01/17/19 01/17/19 01/17/19 11:10 15:40 20:22 WBC RBC Hgb Hct MCV MCH MCHC RDW Plt Count MPV Neut % (Auto) Lymph % (Auto) [place] % (Auto) Eos % (Auto) Baso % (Auto) Neut # (Auto) Lymph # (Auto) [place] # (Auto) Eos # (Auto) Baso # (Auto) pCO2 pO2 HCO3 ABG pH ABG Total CO2 ABG O2 Saturation ABG O2 Content ABG Base Excess ABG Hemoglobin ABG Carboxyhemoglobin POC ABG HHb (Measured) ABG Methemoglobin ABG O2 Capacity Lup[place] Test A-a O2 Difference Hgb O2 Saturation Vent Mode Mechanical Rate FiO2 Tidal Volume PEEP Sodium Potassium Chloride Carbon Dioxide Anion Gap BUN Creatinine Est GFR ( Amer) Est GFR (Non-Af Amer) POC Glucose (mg/dL) 480 H* 335 H 350 H Random Glucose Lactic Acid Calcium Phosphorus Magnesium Total Bilirubin AST ALT Alkaline Phosphatase Ammonia Total Protein Albumin Globulin Albumin/Globulin Ratio 01/17/19 01/18/19 01/18/19 23:05 04:56 05:05 WBC RBC Hgb Hct MCV MCH MCHC RDW Plt Count MPV Neut % (Auto) Lymph % (Auto) [place] % (Auto) Eos % (Auto) Baso % (Auto) Neut # (Auto) Lymph # (Auto) [place] # (Auto) Eos # (Auto) Baso # (Auto) pCO2 31 L pO2 106 H HCO3 29.4 H ABG pH 7.56 H ABG Total CO2 28.8 H ABG O2 Saturation 99.7 H ABG O2 Content 16.3 ABG Base Excess 5.8 H ABG Hemoglobin 11.9 ABG Carboxyhemoglobin 1.7 H POC ABG HHb (Measured) 0.3 ABG Methemoglobin 1.3 ABG O2 Capacity 16.3 Lupillo Test Yes A-a O2 Difference 69.0 Hgb O2 Saturation 96.7 Vent Mode A/c Mechanical Rate 10 FiO2 30.0 Tidal Volume 400 PEEP 5 Sodium Potassium Chloride Carbon Dioxide Anion Gap BUN Creatinine Est GFR ( Amer) Est GFR (Non-Af Amer) POC Glucose (mg/dL) 385 H 363 H Random Glucose Lactic Acid Calcium Phosphorus Magnesium Total Bilirubin AST ALT Alkaline Phosphatase Ammonia Total Protein Albumin Globulin Albumin/Globulin Ratio 01/18/19 01/18/19 01/18/19 05:10 05:10 05:10 WBC 10.0 RBC 3.03 L Hgb 11.8 L Hct 33.9 L MCV 111.8 H MCH 38.9 H MCHC 34.8 RDW 17.8 H Plt Count 116 L MPV 10.7 Neut % (Auto) 73.6 Lymph % (Auto) 7.5 L [place] % (Auto) 17.0 H Eos % (Auto) 1.6 Baso % (Auto) 0.3 Neut # (Auto) 7.4 H Lymph # (Auto) 0.7 L [place] # (Auto) 1.7 H Eos # (Auto) 0.2 Baso # (Auto) 0.0 pCO2 pO2 HCO3 ABG pH ABG Total CO2 ABG O2 Saturation ABG O2 Content ABG Base Excess ABG Hemoglobin ABG Carboxyhemoglobin POC ABG HHb (Measured) ABG Methemoglobin ABG O2 Capacity Lup[place] Test A-a O2 Difference Hgb O2 Saturation Vent Mode Mechanical Rate FiO2 Tidal Volume PEEP Sodium 140 Potassium 4.8 Chloride 106 Carbon Dioxide 28 Anion Gap 11 BUN 85 H Creatinine 1.4 Est GFR ( Amer) > 60 Est GFR (Non-Af Amer) 50 POC Glucose (mg/dL) Random Glucose 398 H Lactic Acid Calcium 8.3 L Phosphorus 2.7 Magnesium 3.9 H Total Bilirubin 1.8 H AST 109 H ALT 65 Alkaline Phosphatase 331 H D Ammonia 119 H D Total Protein 5.6 L Albumin 2.1 L Globulin 3.5 Albumin/Globulin Ratio 0.6 L 01/18/19 05:10 WBC RBC Hgb Hct MCV MCH MCHC RDW Plt Count MPV Neut % (Auto) Lymph % (Auto) [place] % (Auto) Eos % (Auto) Baso % (Auto) Neut # (Auto) Lymph # (Auto) [place] # (Auto) Eos # (Auto) Baso # (Auto) pCO2 pO2 HCO3 ABG pH ABG Total CO2 ABG O2 Saturation ABG O2 Content ABG Base Excess ABG Hemoglobin ABG Carboxyhemoglobin POC ABG HHb (Measured) ABG Methemoglobin ABG O2 Capacity Lup[place] Test A-a O2 Difference Hgb O2 Saturation Vent Mode Mechanical Rate FiO2 Tidal Volume PEEP Sodium Potassium Chloride Carbon Dioxide Anion Gap BUN Creatinine Est GFR ( Amer) Est GFR (Non-Af Amer) POC Glucose (mg/dL) Random Glucose Lactic Acid 2.6 H Calcium Phosphorus Magnesium Total Bilirubin AST ALT Alkaline Phosphatase Ammonia Total Protein Albumin Globulin Albumin/Globulin Ratio Radiology Impressions: Radiology Impressions Chest X-Ray 01/17/19 06:00 IMPRESSION: No stable position of endotracheal and nasogastric tubes. Suspect small effusions. Fingerstick Blood Sugar Results: 398 Review of Systems - Review of Systems Review of Systems: Unable to perform ROS due to patient is sedated. Assessment/Plan (1) Acute respiratory failure Current Visit: Yes Status: Acute Priority: High Comment: Patient orally intubated and mechanically ventilated due to altered mental status from hepatic encephalopathy and hyperammonemia (worsened today) Continue lactulose 20 gm q4h and rifaximin 550 mg BID; Mag citrate 300 mg given last 2 days Frequent neuro check Maintain aspiration precaution Daily chest x-ray and ABG while intubated Mucomyst q12 with albuterol for mucus plug Tube feeding Suplena at 50 cc/hr. (2) Hospital-acquired bacterial pneumonia Current Visit: Yes Status: Acute Comment: Sputum culture on 01/10/19 showed Pseudomonas and Klebsiella chest CT on 01/15/19 shows posterior bibasilar pneumonic consolidation -ID consulted, recs appreciated -d/c Cefepime 1 gm q24 and cipro -c/w Vancomycin 750 mg q24hr -start vero 1 gm q8 (3) Altered mental status Current Visit: Yes Status: Acute Priority: High Comment: head CT on 01/15/19 is negative for intracranial pathology Remain comatose despite improved ammonia this morning. (4) Colitis Current Visit: Yes Status: Acute Comment: started on meropenem 1 gm q8 (5) Hepatic encephalopathy Current Visit: Yes Status: Acute Priority: High Comment: Unchanged mental status today c/w lactulose and rifaximin Magnesium citrate 300 cc x 2 days (6) NIRAJ (acute kidney injury) Current Visit: Yes Status: Acute Comment: Photo Stylist Dr. Banda on board f/u AM labs Avoid nephrotoxic agents (7) Hyperammonemia Current Visit: Yes Status: Acute Priority: High Comment: Improving c/w lactulose and rifaximin (8) Hyponatremia Current Visit: Yes Status: Acute Comment: Resolved Photo Stylist Dr. banda on board -f/u AM labs (9) Thrombocytopenia Current Visit: Yes Status: Acute Comment: improving (10) DM type 2 (diabetes mellitus, type 2) Current Visit: No Status: Acute Comment: started on insulin drip this afternoon due to dysglycemia. (11) UTI (urinary tract infection) Current Visit: Yes Status: Acute Comment: on tx <Sinan Santana - Last Filed: 01/18/19 18:36> Assessment/Plan - Assessment and Plan (Free Text) Assessment: Attestation: Patient seen and examined at the bedside with Resident Dr. Lizeth Paris; and I agree with his outline of plans and management documented above as discussed on AM rounds reflecting my review of all applicable clinical data, and participation in the care of the patient throughout the day in ICU; today, January 18, 2019.
[2019-01-18] MEDS: Cefepime 1 GM in Sodium Chloride 0.9% 100 ML IVPB SCH (08:17)
[2019-01-18] MEDS: Pantoprazole 40 mg Susp UD NG SCH (08:17)
[2019-01-18] MEDS: Insulin Detemir 100 Units/ml Inj SC SCH (08:19)
[2019-01-18] MEDS ORDERED: Magnesium Citrate Oral SOL (300 ml) PO ONE (10:09)
--- NOTE | 2019-01-18 10:36 | CP.PCM.PN ---
Subjective - Date & Time of Evaluation Date of Evaluation: 01/18/19 Time of Evaluation: 10:37 - Subjective Subjective: Patient remain intubated Sedated Family member at the bedside Output could be recorded because he has no Howe catheter Objective - Vital Signs/Intake and Output Vital Signs (last 24 hours): Temp Pulse Resp BP Pulse Ox 100.6 F H 89 15 120/55 L 98 01/18/19 08:00 01/18/19 08:15 01/18/19 08:00 01/18/19 08:15 01/18/19 08:00 Intake and Output: 01/18/19 01/18/19 06:59 18:59 Intake Total 1110 260 Output Total 250 Balance 860 260 - Medications Medications: Current Medications Acetylcysteine (Acetylcysteine 20%) 2 ml INH RBID [facility] Last Admin: 01/18/19 07:37 Dose: 2 ml Albuterol Sulfate (Albuterol 0.083% Inhal Mana (2.5 Mg/3 Ml) Ud) 2.5 mg INH Q12 [facility] Last Admin: 01/18/19 07:36 Dose: 2.5 mg Carvedilol (Coreg) 6.25 mg NG Q12 [facility] Last Admin: 01/18/19 08:15 Dose: 6.25 mg Cilostazol (Pletal) 50 mg PO Q12 [facility] Last Admin: 01/07/19 10:22 Dose: Not Given Folic Acid (Folic Acid) 1 mg GT DAILY [facility] Last Admin: 01/18/19 08:17 Dose: 1 mg Hydralazine HCl (Apresoline) 25 mg PO TID [facility] Last Admin: 01/18/19 08:14 Dose: Not Given Cefepime HCl 1 gm/ Sodium (Chloride) 100 mls @ 100 mls/hr IVPB DAILY [facility]; Protocol Last Admin: 01/18/19 08:17 Dose: 100 mls/hr Ciprofloxacin (Cipro 400mg/200ml Dsw) 400 mg in 200 mls @ 200 mls/hr IVPB Q18H [facility]; Protocol Last Admin: 01/18/19 02:14 Dose: 200 mls/hr Vancomycin HCl 750 mg/ Sodium (Chloride) 250 mls @ 166.667 mls/hr IVPB DAILY@1630 [facility]; Protocol Last Admin: 01/17/19 17:14 Dose: 166.667 mls/hr Insulin Detemir (Levemir) 20 units SC Q12 [facility] Last Admin: 01/18/19 08:19 Dose: 20 units Insulin Human Regular (Humulin R) 0 units SC Q4H [facility]; Protocol Last Admin: 01/18/19 08:08 Dose: 8 u Lactulose (Enulose) 20 gm GT Q4H [facility] Last Admin: 01/18/19 05:47 Dose: 20 gm Levothyroxine Sodium (Synthroid) 50 mcg PO DAILY@0630 [facility] Last Admin: 01/18/19 05:47 Dose: 50 mcg Pantoprazole Sodium (Protonix Susp) 40 mg NG DAILY [facility] Last Admin: 01/18/19 08:17 Dose: 40 mg Rifaximin (Xifaxan) 550 mg PO BID [facility]; Protocol Last Admin: 01/18/19 08:16 Dose: 550 mg Thiamine HCl (Vitamin B1 Tab) 100 mg GT DAILY [facility] Last Admin: 01/18/19 08:16 Dose: 100 mg - Labs Labs: 01/18/19 05:10 01/18/19 05:10 PT 16.1 Seconds (9.8-13.1) H 01/11/19 05:33 INR 1.4 01/11/19 05:33 APTT 32.9 Seconds (25.6-37.1) 01/11/19 05:33 - Constitutional Appears: No Acute Distress - Eye Exam Eye Exam: Conjunctival injection - ENT Exam ENT Exam: Mucous Membranes Moist - Neck Exam Neck Exam: absent: Lymphadenopathy - Respiratory Exam Respiratory Exam: NORMAL BREATHING PATTERN. absent: Rales - Cardiovascular Exam Cardiovascular Exam: absent: Gallop, JVD, Rubs - GI/Abdominal Exam GI & Abdominal Exam: Soft, Normal Bowel Sounds - Extremities Exam Extremities Exam: absent: Calf Tenderness - Back Exam Back Exam: absent: CVA tenderness (L), CVA tenderness (R) - Neurological Exam Neurological Exam: Altered - Psychiatric Exam Psychiatric exam: Flat Affect - Skin Skin Exam: absent: Cyanosis Assessment and Plan (1) Hyponatremia Status: Acute (2) NIRAJ (acute kidney injury) Status: Acute (3) Acute respiratory failure Assessment & Plan: Acute kidney injury with hepatorenal syndrome most likely Hyponatremia corrected serum sodium 140 NG tube feeding noted with 150cc of water has been given every 6 hours through the NG tube. Patient diagnosed with liver cirrhosis and liver malignancy as noted Hepatic encephalopathy Diabetes mellitus Respiratory failure Recommendation Serum sodium and electrolyte corrected Acute kidney injury improving although serum creatinine has gone up 1.3-1.4 Please revisit antibiotics to be adjusted per GFR Serum vancomycin level Respiratory management as per primary team and the rest of the intensive care management Status: Acute Status: Acute (4) Altered mental status Status: Acute (5) Hepatic encephalopathy Status: Acute (6) Hyperammonemia Status: Acute (7) Liver mass Status: Acute (8) Thrombocytopenia Status: Acute
--- NOTE | 2019-01-18 11:09 | RAD ---
Date of service: 01/18/2019 HISTORY: ETT placement COMPARISON: Portable chest 01/17/2019. TECHNIQUE: 1 view obtained. FINDINGS: LUNGS: Endotracheal and orogastric tubes are not significantly changed in position. Linear atelectasis identified at the medial right base. No alveolitis bilaterally. PLEURA: No significant pleural effusion identified, no pneumothorax apparent. CARDIOVASCULAR: No aortic atherosclerotic calcification present. Cardiac size appears stable. No pulmonary vascular congestion. OSSEOUS STRUCTURES: No significant abnormalities. VISUALIZED UPPER ABDOMEN: Embolic material suggests at the medial left upper quadrant abdomen. OTHER FINDINGS: None. IMPRESSION: Linear atelectasis medial right base. No definite pleural effusion bilaterally. Stable ET tube and orogastric tube. No pulmonary vascular congestion.
[2019-01-18] MEDS ORDERED: Insulin Regular 100 units/ml IV STA (12:17)
[2019-01-18] MEDS ORDERED: Acetaminophen 160 mg/5 ml UD NG PRN (13:16)
[2019-01-18] MEDS ORDERED: Acetaminophen 650mg/20.3ml solution UD NG PRN ×2 (13:30→13:39)
--- NOTE | 2019-01-18 15:53 | CP.PCM.CON ---
History of Present Illness - History of Present Illness History of Present Illness: Infectious Disease Consultation Note- Asked to see this patient at the request of for HAP and help with antibiotic ,management. HPI- History obtained from the medical chart, pt's family and ICU doc and . as pt. is unresponsive. Patient is a 69 year old male with PMH of ETOH kiver cirrhosis, Liver CA, DM II Chronic renal disease . hepatic encephalopathy who was brought in by his family on 01/06/2019 for altered mental status and confusion and was taken to ICU for worsening mental status and was intubated and has remained intubated since 01/06/2019. I'm asked to evaluate him because despite being on abx he has developed fever yesterday and his spuitum cx klebsiella and pseudomonas. pt. 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 was on serofinab for liver ca . Pt. seen in ICU now . unresponsive intubated Review of Systems - Review of Systems Review of Systems: ROS- unable to obtain as pt. is unresponsive Past Patient History - Infectious Disease Hx of Infectious Diseases: None - Past Medical History & Family History Past Medical History?: Yes - Past Social History Smoking Status: Never Smoked Chewing Tobacco Use: No Cigar Use: No - CARDIAC Hx Cardiac Disorders: Yes Hx Hypercholesterolemia: Yes Hx Hypertension: Yes - PULMONARY Hx Respiratory Disorders: No - NEUROLOGICAL Hx Neurological Disorder: No - HEENT Hx HEENT Problems: Yes Hx Cataracts: Yes - RENAL Hx Chronic Kidney Disease: No ( denies hx) - ENDOCRINE/METABOLIC Hx Endocrine Disorders: Yes Hx Diabetes Mellitus Type 2: Yes - HEMATOLOGICAL/ONCOLOGICAL Hx Blood Disorders: No - INTEGUMENTARY Hx Dermatological Problems: No - MUSCULOSKELETAL/RHEUMATOLOGICAL Hx Musculoskeletal Disorders: Yes Hx Falls: Yes - GASTROINTESTINAL Hx Gastrointestinal Disorders: Yes Hx Gastritis: Yes Hx Liver Failure: Yes - GENITOURINARY/GYNECOLOGICAL Hx Genitourinary Disorders: No - PSYCHIATRIC Hx Psychophysiologic Disorder: No Hx Substance Use: No - SURGICAL HISTORY Hx Surgeries: Yes Other/Comment: TIPS 10years ago - ANESTHESIA Hx Anesthesia: Yes Hx Anesthesia Reactions: No Meds Allergies/Adverse Reactions: Allergies Allergy/AdvReac Type Severity Reaction Status Date / Time No Known Allergies Allergy Verified 01/05/19 23:20 - Medications Medications: Current Medications Acetaminophen (Tylenol 650mg/20.3ml Solution Ud) 650 mg NG Q6 PRN PRN Reason: for temp>100.4 deg f Acetylcysteine (Acetylcysteine 20%) 2 ml INH RBID [facility] Last Admin: 01/18/19 07:37 Dose: 2 ml Albuterol Sulfate (Albuterol 0.083% Inhal Mana (2.5 Mg/3 Ml) Ud) 2.5 mg INH Q12 [facility] Last Admin: 01/18/19 07:36 Dose: 2.5 mg Carvedilol (Coreg) 6.25 mg NG Q12 [facility] Last Admin: 01/18/19 08:15 Dose: 6.25 mg Cilostazol (Pletal) 50 mg PO Q12 [facility] Last Admin: 01/07/19 10:22 Dose: Not Given Folic Acid (Folic Acid) 1 mg GT DAILY [facility] Last Admin: 01/18/19 08:17 Dose: 1 mg Hydralazine HCl (Apresoline) 25 mg PO TID [facility] Last Admin: 01/18/19 12:49 Dose: 25 mg Cefepime HCl 1 gm/ Sodium (Chloride) 100 mls @ 100 mls/hr IVPB DAILY [facility]; Protocol Last Admin: 01/18/19 08:17 Dose: 100 mls/hr Ciprofloxacin (Cipro 400mg/200ml Dsw) 400 mg in 200 mls @ 200 mls/hr IVPB Q18H [facility]; Protocol Last Admin: 01/18/19 02:14 Dose: 200 mls/hr Vancomycin HCl 750 mg/ Sodium (Chloride) 250 mls @ 166.667 mls/hr IVPB DAILY@1630 [facility]; Protocol Last Admin: 01/17/19 17:14 Dose: 166.667 mls/hr Insulin Detemir (Levemir) 20 units SC Q12 [facility] Last Admin: 01/18/19 08:19 Dose: 20 units Insulin Human Regular (Humulin R) 0 units SC Q4H [facility]; Protocol Last Admin: 01/18/19 12:12 Dose: 8 u Lactulose (Enulose) 20 gm GT Q4H [facility] Last Admin: 01/18/19 14:56 Dose: 20 gm Levothyroxine Sodium (Synthroid) 50 mcg PO DAILY@0630 [facility] Last Admin: 01/18/19 05:47 Dose: 50 mcg Pantoprazole Sodium (Protonix Susp) 40 mg NG DAILY [facility] Last Admin: 01/18/19 08:17 Dose: 40 mg Rifaximin (Xifaxan) 550 mg PO BID [facility]; Protocol Last Admin: 01/18/19 08:16 Dose: 550 mg Thiamine HCl (Vitamin B1 Tab) 100 mg GT DAILY [facility] Last Admin: 01/18/19 08:16 Dose: 100 mg Physical Exam - Constitutional Additional comments: unresponsive - ENT Exam Additional comments: ET tube and OGT in place - Neck Exam Neck exam: Positive for: Full Rom - Respiratory Exam Additional comments: decreased breath sounds bibasilar on the vent - Cardiovascular Exam Cardiovascular Exam: RRR, +S1, +S2 - GI/Abdominal Exam GI & Abdominal Exam: Normal Bowel Sounds, Soft Additional comments: NT, ND - Extremities Exam Extremities exam: Positive for: normal inspection - Neurological Exam Neurological exam: Altered Additional comments: unresponsive Results - Vital Signs Recent Vital Signs: Last Vital Signs Temp 101.1 F H 01/18/19 14:00 Pulse 88 01/18/19 14:00 Resp 27 H 01/18/19 14:00 BP 116/45 L 01/18/19 14:00 Pulse Ox 99 01/18/19 14:00 - Labs Result Diagrams: 01/18/19 05:10 01/18/19 05:10 Labs: Laboratory Results - last 24 hr 01/17/19 01/17/19 01/17/19 15:40 20:22 23:05 WBC RBC Hgb Hct MCV MCH MCHC RDW Plt Count MPV Neut % (Auto) Lymph % (Auto) Carson % (Auto) Eos % (Auto) Baso % (Auto) Neut # (Auto) Lymph # (Auto) Carson # (Auto) Eos # (Auto) Baso # (Auto) pCO2 pO2 HCO3 ABG pH ABG Total CO2 ABG O2 Saturation ABG O2 Content ABG Base Excess ABG Hemoglobin ABG Carboxyhemoglobin POC ABG HHb (Measured) ABG Methemoglobin ABG O2 Capacity [place] Test A-a O2 Difference Hgb O2 Saturation Vent Mode Mechanical Rate FiO2 Tidal Volume PEEP Sodium Potassium Chloride Carbon Dioxide Anion Gap BUN Creatinine Est GFR ( Amer) Est GFR (Non-Af Amer) POC Glucose (mg/dL) 335 H 350 H 385 H Random Glucose Lactic Acid Calcium Phosphorus Magnesium Total Bilirubin AST ALT Alkaline Phosphatase Ammonia Total Protein Albumin Globulin Albumin/Globulin Ratio Random Vancomycin 01/18/19 01/18/19 01/18/19 04:56 05:05 05:10 WBC 10.0 RBC 3.03 L Hgb 11.8 L Hct 33.9 L MCV 111.8 H MCH 38.9 H MCHC 34.8 RDW 17.8 H Plt Count 116 L MPV 10.7 Neut % (Auto) 73.6 Lymph % (Auto) 7.5 L Carson % (Auto) 17.0 H Eos % (Auto) 1.6 Baso % (Auto) 0.3 Neut # (Auto) 7.4 H Lymph # (Auto) 0.7 L Carson # (Auto) 1.7 H Eos # (Auto) 0.2 Baso # (Auto) 0.0 pCO2 31 L pO2 106 H HCO3 29.4 H ABG pH 7.56 H ABG Total CO2 28.8 H ABG O2 Saturation 99.7 H ABG O2 Content 16.3 ABG Base Excess 5.8 H ABG Hemoglobin 11.9 ABG Carboxyhemoglobin 1.7 H POC ABG HHb (Measured) 0.3 ABG Methemoglobin 1.3 ABG O2 Capacity 16.3 [place] Test Yes A-a O2 Difference 69.0 Hgb O2 Saturation 96.7 Vent Mode A/c Mechanical Rate 10 FiO2 30.0 Tidal Volume 400 PEEP 5 Sodium Potassium Chloride Carbon Dioxide Anion Gap BUN Creatinine Est GFR ( Amer) Est GFR (Non-Af Amer) POC Glucose (mg/dL) 363 H Random Glucose Lactic Acid Calcium Phosphorus Magnesium Total Bilirubin AST ALT Alkaline Phosphatase Ammonia Total Protein Albumin Globulin Albumin/Globulin Ratio Random Vancomycin 01/18/19 01/18/19 01/18/19 05:10 05:10 05:10 WBC RBC Hgb Hct MCV MCH MCHC RDW Plt Count MPV Neut % (Auto) Lymph % (Auto) Carson % (Auto) Eos % (Auto) Baso % (Auto) Neut # (Auto) Lymph # (Auto) Carson # (Auto) Eos # (Auto) Baso # (Auto) pCO2 pO2 HCO3 ABG pH ABG Total CO2 ABG O2 Saturation ABG O2 Content ABG Base Excess ABG Hemoglobin ABG Carboxyhemoglobin POC ABG HHb (Measured) ABG Methemoglobin ABG O2 Capacity [place] Test A-a O2 Difference Hgb O2 Saturation Vent Mode Mechanical Rate FiO2 Tidal Volume PEEP Sodium 140 Potassium 4.8 Chloride 106 Carbon Dioxide 28 Anion Gap 11 BUN 85 H Creatinine 1.4 Est GFR ( Amer) > 60 Est GFR (Non-Af Amer) 50 POC Glucose (mg/dL) Random Glucose 398 H Lactic Acid 2.6 H Calcium 8.3 L Phosphorus 2.7 Magnesium 3.9 H Total Bilirubin 1.8 H AST 109 H ALT 65 Alkaline Phosphatase 331 H D Ammonia 119 H D Total Protein 5.6 L Albumin 2.1 L Globulin 3.5 Albumin/Globulin Ratio 0.6 L Random Vancomycin 01/18/19 10:55 WBC RBC Hgb Hct MCV MCH MCHC RDW Plt Count MPV Neut % (Auto) Lymph % (Auto) Carson % (Auto) Eos % (Auto) Baso % (Auto) Neut # (Auto) Lymph # (Auto) Carson # (Auto) Eos # (Auto) Baso # (Auto) pCO2 pO2 HCO3 ABG pH ABG Total CO2 ABG O2 Saturation ABG O2 Content ABG Base Excess ABG Hemoglobin ABG Carboxyhemoglobin POC ABG HHb (Measured) ABG Methemoglobin ABG O2 Capacity [place] Test A-a O2 Difference Hgb O2 Saturation Vent Mode Mechanical Rate FiO2 Tidal Volume PEEP Sodium Potassium Chloride Carbon Dioxide Anion Gap BUN Creatinine Est GFR ( Amer) Est GFR (Non-Af Amer) POC Glucose (mg/dL) Random Glucose Lactic Acid Calcium Phosphorus Magnesium Total Bilirubin AST ALT Alkaline Phosphatase Ammonia Total Protein Albumin Globulin Albumin/Globulin Ratio Random Vancomycin 5.8 Laboratory Results - last 72 hr 01/15/19 01/15/19 01/15/19 13:08 16:36 21:39 WBC RBC Hgb Hct MCV MCH MCHC RDW Plt Count MPV Neut % (Auto) Lymph % (Auto) Carson % (Auto) Eos % (Auto) Baso % (Auto) Neut # (Auto) Lymph # (Auto) Carson # (Auto) Eos # (Auto) Baso # (Auto) Neutrophils % (Manual) Lymphocytes % (Manual) Monocytes % (Manual) Eosinophils % (Manual) Platelet Estimate Large Platelets Anisocytosis (manual) Microcytosis (manual) Ovalocytes pCO2 pO2 HCO3 ABG pH ABG Total CO2 ABG O2 Saturation ABG O2 Content ABG Base Excess ABG Hemoglobin ABG Carboxyhemoglobin POC ABG HHb (Measured) ABG Methemoglobin ABG O2 Capacity [place] Test A-a O2 Difference Hgb O2 Saturation Vent Mode Mechanical Rate FiO2 Tidal Volume PEEP Sodium Potassium Chloride Carbon Dioxide Anion Gap BUN 107 H* Creatinine Est GFR ( Amer) Est GFR (Non-Af Amer) POC Glucose (mg/dL) 259 H 211 H Random Glucose Lactic Acid Calcium Phosphorus Magnesium Total Bilirubin AST ALT Alkaline Phosphatase Ammonia Total Protein Albumin Globulin Albumin/Globulin Ratio Procalcitonin Stool Occult Blood Random Vancomycin 01/16/19 01/16/19 01/16/19 04:10 04:10 04:10 WBC 9.9 RBC 3.25 L Hgb 12.5 Hct 36.2 MCV 111.5 H MCH 38.4 H MCHC 34.4 RDW 17.8 H Plt Count 82 L D MPV 11.7 Neut % (Auto) 69.8 Lymph % (Auto) 9.8 L Carson % (Auto) 18.0 H Eos % (Auto) 1.7 Baso % (Auto) 0.7 Neut # (Auto) 6.9 Lymph # (Auto) 1.0 Carson # (Auto) 1.8 H Eos # (Auto) 0.2 Baso # (Auto) 0.1 Neutrophils % (Manual) 80 H Lymphocytes % (Manual) 10 L Monocytes % (Manual) 8 Eosinophils % (Manual) 2 Platelet Estimate Markedly decreased L Large Platelets Present Anisocytosis (manual) Slight Microcytosis (manual) Slight Ovalocytes Slight pCO2 pO2 HCO3 ABG pH ABG Total CO2 ABG O2 Saturation ABG O2 Content ABG Base Excess ABG Hemoglobin ABG Carboxyhemoglobin POC ABG HHb (Measured) ABG Methemoglobin ABG O2 Capacity [place] Test A-a O2 Difference Hgb O2 Saturation Vent Mode Mechanical Rate FiO2 Tidal Volume PEEP Sodium 134 Potassium 5.4 H Chloride 105 Carbon Dioxide 24 Anion Gap 10 BUN 111 H* Creatinine 1.6 H Est GFR ( Amer) 52 Est GFR (Non-Af Amer) 43 POC Glucose (mg/dL) Random Glucose 188 H Lactic Acid Calcium 8.5 Phosphorus 4.1 Magnesium 4.0 H Total Bilirubin 2.9 H AST 81 H ALT 58 Alkaline Phosphatase 230 H D Ammonia 147 H D Total Protein 5.7 L Albumin 2.2 L Globulin 3.5 Albumin/Globulin Ratio 0.6 L Procalcitonin Stool Occult Blood Random Vancomycin 01/16/19 01/16/19 01/16/19 04:10 04:40 05:04 WBC RBC Hgb Hct MCV MCH MCHC RDW Plt Count MPV Neut % (Auto) Lymph % (Auto) Carson % (Auto) Eos % (Auto) Baso % (Auto) Neut # (Auto) Lymph # (Auto) Carson # (Auto) Eos # (Auto) Baso # (Auto) Neutrophils % (Manual) Lymphocytes % (Manual) Monocytes % (Manual) Eosinophils % (Manual) Platelet Estimate Large Platelets Anisocytosis (manual) Microcytosis (manual) Ovalocytes pCO2 32 L pO2 81 HCO3 27.1 ABG pH 7.51 H ABG Total CO2 26.5 ABG O2 Saturation 98.8 H ABG O2 Content 17.2 ABG Base Excess 2.9 ABG Hemoglobin 12.8 ABG Carboxyhemoglobin 2.4 H POC ABG HHb (Measured) 1.2 ABG Methemoglobin 1.0 ABG O2 Capacity 17.4 [place] Test Yes A-a O2 Difference 164.0 Hgb O2 Saturation 95.4 Vent Mode Mechanical Rate 12 FiO2 40.0 Tidal Volume 450 PEEP 5 Sodium Potassium Chloride Carbon Dioxide Anion Gap BUN Creatinine Est GFR ( Amer) Est GFR (Non-Af Amer) POC Glucose (mg/dL) 212 H Random Glucose Lactic Acid Calcium Phosphorus Magnesium Total Bilirubin AST ALT Alkaline Phosphatase Ammonia Total Protein Albumin Globulin Albumin/Globulin Ratio Procalcitonin 1.10 H Stool Occult Blood Random Vancomycin 01/16/19 01/16/19 01/16/19 09:50 11:46 16:00 WBC RBC Hgb Hct MCV MCH MCHC RDW Plt Count MPV Neut % (Auto) Lymph % (Auto) Carson % (Auto) Eos % (Auto) Baso % (Auto) Neut # (Auto) Lymph # (Auto) Carson # (Auto) Eos # (Auto) Baso # (Auto) Neutrophils % (Manual) Lymphocytes % (Manual) Monocytes % (Manual) Eosinophils % (Manual) Platelet Estimate Large Platelets Anisocytosis (manual) Microcytosis (manual) Ovalocytes pCO2 pO2 HCO3 ABG pH ABG Total CO2 ABG O2 Saturation ABG O2 Content ABG Base Excess ABG Hemoglobin ABG Carboxyhemoglobin POC ABG HHb (Measured) ABG Methemoglobin ABG O2 Capacity [place] Test A-a O2 Difference Hgb O2 Saturation Vent Mode Mechanical Rate FiO2 Tidal Volume PEEP Sodium Potassium Chloride Carbon Dioxide Anion Gap BUN Creatinine Est GFR ( Amer) Est GFR (Non-Af Amer) POC Glucose (mg/dL) 221 H Random Glucose Lactic Acid 1.8 Calcium Phosphorus Magnesium Total Bilirubin AST ALT Alkaline Phosphatase Ammonia Total Protein Albumin Globulin Albumin/Globulin Ratio Procalcitonin Stool Occult Blood Negative Random Vancomycin 01/16/19 01/16/19 01/17/19 16:34 20:59 05:10 WBC RBC Hgb Hct MCV MCH MCHC RDW Plt Count MPV Neut % (Auto) Lymph % (Auto) Carson % (Auto) Eos % (Auto) Baso % (Auto) Neut # (Auto) Lymph # (Auto) Carson # (Auto) Eos # (Auto) Baso # (Auto) Neutrophils % (Manual) Lymphocytes % (Manual) Monocytes % (Manual) Eosinophils % (Manual) Platelet Estimate Large Platelets Anisocytosis (manual) Microcytosis (manual) Ovalocytes pCO2 34 L pO2 83 HCO3 28.9 H ABG pH 7.52 H ABG Total CO2 28.8 H ABG O2 Saturation 98.7 H ABG O2 Content 18.1 ABG Base Excess 5.1 H ABG Hemoglobin 13.5 ABG Carboxyhemoglobin 1.9 H POC ABG HHb (Measured) 1.3 ABG Methemoglobin 1.5 ABG O2 Capacity 18.3 [place] Test Yes A-a O2 Difference 88.0 Hgb O2 Saturation 95.3 Vent Mode Mechanical Rate 10 FiO2 30.0 Tidal Volume 400 PEEP 5 Sodium Potassium Chloride Carbon Dioxide Anion Gap BUN Creatinine Est GFR ( Amer) Est GFR (Non-Af Amer) POC Glucose (mg/dL) 255 H 292 H Random Glucose Lactic Acid Calcium Phosphorus Magnesium Total Bilirubin AST ALT Alkaline Phosphatase Ammonia Total Protein Albumin Globulin Albumin/Globulin Ratio Procalcitonin Stool Occult Blood Random Vancomycin 01/17/19 01/17/19 01/17/19 05:24 06:00 06:00 WBC 8.4 RBC 3.06 L Hgb 11.9 L Hct 34.4 L MCV 112.4 H MCH 38.9 H MCHC 34.6 RDW 17.7 H Plt Count 108 L D MPV 11.0 Neut % (Auto) 70.7 Lymph % (Auto) 9.0 L Carson % (Auto) 17.3 H Eos % (Auto) 2.9 Baso % (Auto) 0.1 Neut # (Auto) 5.9 Lymph # (Auto) 0.8 L Carson # (Auto) 1.5 H Eos # (Auto) 0.2 Baso # (Auto) 0.0 Neutrophils % (Manual) Lymphocytes % (Manual) Monocytes % (Manual) Eosinophils % (Manual) Platelet Estimate Large Platelets Anisocytosis (manual) Microcytosis (manual) Ovalocytes pCO2 pO2 HCO3 ABG pH ABG Total CO2 ABG O2 Saturation ABG O2 Content ABG Base Excess ABG Hemoglobin ABG Carboxyhemoglobin POC ABG HHb (Measured) ABG Methemoglobin ABG O2 Capacity [place] Test A-a O2 Difference Hgb O2 Saturation Vent Mode Mechanical Rate FiO2 Tidal Volume PEEP Sodium 138 Potassium 4.2 Chloride 105 Carbon Dioxide 27 Anion Gap 10 BUN 97 H Creatinine 1.3 Est GFR ( Amer) > 60 Est GFR (Non-Af Amer) 55 POC Glucose (mg/dL) 308 H Random Glucose 299 H Lactic Acid Calcium 8.3 L Phosphorus 3.9 Magnesium 3.7 H Total Bilirubin 2.4 H AST 91 H ALT 60 Alkaline Phosphatase 239 H Ammonia Total Protein 5.7 L Albumin 2.1 L Globulin 3.5 Albumin/Globulin Ratio 0.6 L Procalcitonin Stool Occult Blood Random Vancomycin 01/17/19 01/17/19 01/17/19 06:20 11:10 15:40 WBC RBC Hgb Hct MCV MCH MCHC RDW Plt Count MPV Neut % (Auto) Lymph % (Auto) Carson % (Auto) Eos % (Auto) Baso % (Auto) Neut # (Auto) Lymph # (Auto) Carson # (Auto) Eos # (Auto) Baso # (Auto) Neutrophils % (Manual) Lymphocytes % (Manual) Monocytes % (Manual) Eosinophils % (Manual) Platelet Estimate Large Platelets Anisocytosis (manual) Microcytosis (manual) Ovalocytes pCO2 pO2 HCO3 ABG pH ABG Total CO2 ABG O2 Saturation ABG O2 Content ABG Base Excess ABG Hemoglobin ABG Carboxyhemoglobin POC ABG HHb (Measured) ABG Methemoglobin ABG O2 Capacity [place] Test A-a O2 Difference Hgb O2 Saturation Vent Mode Mechanical Rate FiO2 Tidal Volume PEEP Sodium Potassium Chloride Carbon Dioxide Anion Gap BUN Creatinine Est GFR ( Amer) Est GFR (Non-Af Amer) POC Glucose (mg/dL) 480 H* 335 H Random Glucose Lactic Acid Calcium Phosphorus Magnesium Total Bilirubin AST ALT Alkaline Phosphatase Ammonia 214 H* D Total Protein Albumin Globulin Albumin/Globulin Ratio Procalcitonin Stool Occult Blood Random Vancomycin 01/17/19 01/17/19 01/18/19 20:22 23:05 04:56 WBC RBC Hgb Hct MCV MCH MCHC RDW Plt Count MPV Neut % (Auto) Lymph % (Auto) Carson % (Auto) Eos % (Auto) Baso % (Auto) Neut # (Auto) Lymph # (Auto) Carson # (Auto) Eos # (Auto) Baso # (Auto) Neutrophils % (Manual) Lymphocytes % (Manual) Monocytes % (Manual) Eosinophils % (Manual) Platelet Estimate Large Platelets Anisocytosis (manual) Microcytosis (manual) Ovalocytes pCO2 31 L pO2 106 H HCO3 29.4 H ABG pH 7.56 H ABG Total CO2 28.8 H ABG O2 Saturation 99.7 H ABG O2 Content 16.3 ABG Base Excess 5.8 H ABG Hemoglobin 11.9 ABG Carboxyhemoglobin 1.7 H POC ABG HHb (Measured) 0.3 ABG Methemoglobin 1.3 ABG O2 Capacity 16.3 [place] Test Yes A-a O2 Difference 69.0 Hgb O2 Saturation 96.7 Vent Mode A/c Mechanical Rate 10 FiO2 30.0 Tidal Volume 400 PEEP 5 Sodium Potassium Chloride Carbon Dioxide Anion Gap BUN Creatinine Est GFR ( Amer) Est GFR (Non-Af Amer) POC Glucose (mg/dL) 350 H 385 H Random Glucose Lactic Acid Calcium Phosphorus Magnesium Total Bilirubin AST ALT Alkaline Phosphatase Ammonia Total Protein Albumin Globulin Albumin/Globulin Ratio Procalcitonin Stool Occult Blood Random Vancomycin 01/18/19 01/18/19 01/18/19 05:05 05:10 05:10 WBC 10.0 RBC 3.03 L Hgb 11.8 L Hct 33.9 L MCV 111.8 H MCH 38.9 H MCHC 34.8 RDW 17.8 H Plt Count 116 L MPV 10.7 Neut % (Auto) 73.6 Lymph % (Auto) 7.5 L Carson % (Auto) 17.0 H Eos % (Auto) 1.6 Baso % (Auto) 0.3 Neut # (Auto) 7.4 H Lymph # (Auto) 0.7 L [place] # (Auto) 1.7 H Eos # (Auto) 0.2 Baso # (Auto) 0.0 Neutrophils % (Manual) Lymphocytes % (Manual) Monocytes % (Manual) Eosinophils % (Manual) Platelet Estimate Large Platelets Anisocytosis (manual) Microcytosis (manual) Ovalocytes pCO2 pO2 HCO3 ABG pH ABG Total CO2 ABG O2 Saturation ABG O2 Content ABG Base Excess ABG Hemoglobin ABG Carboxyhemoglobin POC ABG HHb (Measured) ABG Methemoglobin ABG O2 Capacity [place] Test A-a O2 Difference Hgb O2 Saturation Vent Mode Mechanical Rate FiO2 Tidal Volume PEEP Sodium 140 Potassium 4.8 Chloride 106 Carbon Dioxide 28 Anion Gap 11 BUN 85 H Creatinine 1.4 Est GFR ( Amer) > 60 Est GFR (Non-Af Amer) 50 POC Glucose (mg/dL) 363 H Random Glucose 398 H Lactic Acid Calcium 8.3 L Phosphorus 2.7 Magnesium 3.9 H Total Bilirubin 1.8 H AST 109 H ALT 65 Alkaline Phosphatase 331 H D Ammonia Total Protein 5.6 L Albumin 2.1 L Globulin 3.5 Albumin/Globulin Ratio 0.6 L Procalcitonin Stool Occult Blood Random Vancomycin 01/18/19 01/18/19 01/18/19 05:10 05:10 10:55 WBC RBC Hgb Hct MCV MCH MCHC RDW Plt Count MPV Neut % (Auto) Lymph % (Auto) Carson % (Auto) Eos % (Auto) Baso % (Auto) Neut # (Auto) Lymph # (Auto) Carson # (Auto) Eos # (Auto) Baso # (Auto) Neutrophils % (Manual) Lymphocytes % (Manual) Monocytes % (Manual) Eosinophils % (Manual) Platelet Estimate Large Platelets Anisocytosis (manual) Microcytosis (manual) Ovalocytes pCO2 pO2 HCO3 ABG pH ABG Total CO2 ABG O2 Saturation ABG O2 Content ABG Base Excess ABG Hemoglobin ABG Carboxyhemoglobin POC ABG HHb (Measured) ABG Methemoglobin ABG O2 Capacity [place] Test A-a O2 Difference Hgb O2 Saturation Vent Mode Mechanical Rate FiO2 Tidal Volume PEEP Sodium Potassium Chloride Carbon Dioxide Anion Gap BUN Creatinine Est GFR ( Amer) Est GFR (Non-Af Amer) POC Glucose (mg/dL) Random Glucose Lactic Acid 2.6 H Calcium Phosphorus Magnesium Total Bilirubin AST ALT Alkaline Phosphatase Ammonia 119 H D Total Protein Albumin Globulin Albumin/Globulin Ratio Procalcitonin Stool Occult Blood Random Vancomycin 5.8 Microbiology 01/15/19 07:16 Urine,Howe Urine Culture - Final Beta Hemolytic Strep Group B 01/17/19 18:20 Sputum Gram Stain - Final 01/17/19 18:20 Sputum Sputum Culture - Preliminary Gram Negative Dmitri 01/15/19 18:40 Blood Blood Culture - Preliminary NO GROWTH AFTER 48 HOURS 01/15/19 17:45 Blood Blood Culture - Preliminary NO GROWTH AFTER 48 HOURS 01/10/19 21:25 Trachasp Gram Stain - Preliminary 01/10/19 21:25 Trachasp Sputum Culture - Final Klebsiella Oxytoca Pseudomonas Aeruginosa 01/07/19 18:08 Urine,Howe Urine Culture - Final Beta Hemolytic Strep Group B 01/06/19 10:41 Naris MRSA Culture (Admit) - Final MRSA NOT DETECTED Accession No. : [id number] Patient Name / ID : SUSAN Quiros / [id number] Exam Date : 01/18/2019 04:37:17 ( Approved ) Study Comment : Sex / Age : M / 69Y Creator : Adrián Joshi MD Dictator : Adrián Joshi MD Center Receptionist : Ophthalmologist Retina Specialist : Adrián Joshi MD Approver2 : Report Date : 01/18/2019 11:03:29 My Comment : Date of service: 01/18/2019 HISTORY: ETT placement COMPARISON: Portable chest 01/17/2019. TECHNIQUE: 1 view obtained. FINDINGS: LUNGS: Endotracheal and orogastric tubes are not significantly changed in position. Linear atelectasis identified at the medial right base. No alveolitis bilaterally. PLEURA: No significant pleural effusion identified, no pneumothorax apparent. CARDIOVASCULAR: No aortic atherosclerotic calcification present. Cardiac size appears stable. No pulmonary vascular congestion. OSSEOUS STRUCTURES: No significant abnormalities. VISUALIZED UPPER ABDOMEN: Embolic material suggests at the medial left upper quadrant abdomen. OTHER FINDINGS: None. IMPRESSION: Linear atelectasis medial right base. No definite pleural effusion bilaterally. Stable ET tube and orogastric tube. No pulmonary vascular congestion.Accession No. : [id number] Patient Name / ID : SUSAN ROMERO K / [id number] Exam Date : 01/15/2019 20:16:29 ( Approved ) Study Comment : Sex / Age : M / 69Y Creator : Brannon Paris MD Dictator : Brannon Paris MD Center Receptionist : Ophthalmologist Retina Specialist : Brannon Paris MD Approver2 : Report Date : 01/16/2019 13:20:37 My Comment : Date of service: 01/15/2019 PROCEDURE: CT Chest without contrast HISTORY: Pleural effusion COMPARISON: None available. TECHNIQUE: Contiguous axial images were obtained through the chest without intravenous contrast enhancement. Sagittal and coronal reconstructions were performed. Radiation dose: Total exam DLP = 536.19 mGy-cm. This CT exam was performed using one or more of the following dose reduction techniques: Automated exposure control, adjustment of the mA and/or kV according to patient size, and/or use of iterative reconstruction technique. FINDINGS: LUNGS: There is dense subsegmental consolidation of both lung bases with air bro nchograms. This could represent pneumonia or atelectasis. The endotracheal and nasogastric tubes are in satisfactory position MEDIASTINUM: Unremarkable thoracic aorta. No aneurysm. Normal sized heart. Main pulmonary artery unremarkable. No vascular congestion. No lymphadenopathy. No aortic atherosclerotic calcification. PLEURA: No pleural fluid. No pneumothorax. BONES: No fracture. No destructive lesion. UPPER ABDOMEN: Cirrhosis with atrophy of the liver. AP portacaval shunt is seen in place. OTHER FINDINGS: None. IMPRESSION: There is dense subsegmental consolidation of both lung bases with air bronchograms. This could represent pneumonia or atelectasis. The endotracheal and nasogastric tubes are in satisfactory position Assessment & Plan (1) Hospital-acquired bacterial pneumonia Status: Acute (2) Acute respiratory failure Status: Acute Priority: High - Assessment and Plan (Free Text) Assessment: A/P- 69 year old male with h/o ETOH abuse, liver cirrhosis, liver cancer undergoing chemo who was admitted with [facility] in [place] . has been in ICU and intubated for airway protection since 01/06/2019. HAP/VAP with klebsiella an pseudomonas. afebrile today low grade fver yesterday. Plan- check blood cx x 2. check Ua and urine cx. advise to d/c cefepime and start pt. on Meropnem 1 gram IV q8 hours. continue with IV vancomycin. All imaging and labs and chart notes reviewed. all above d/w patient's family who are at his bedside. Critical care time spent 60 minutes. d/w Director Of Clinical Trials and .
[2019-01-18] MEDS ORDERED: Dextrose 50% SYRINGE Inj (50 ml) IV PRN (17:22)
[2019-01-18] MEDS ORDERED: Glucagon Recombinant 1 mg Inj IM PRN (17:22)
[2019-01-18] MEDS: Meropenem 1 GM in Sodium Chloride 0.9% 100 ML IVPB SCH (17:35)
[2019-01-19] MEDS: Meropenem 1 GM in Sodium Chloride 0.9% 100 ML IVPB SCH ×3 (00:15→16:07)
--- NOTE | 2019-01-19 00:56 | CP.PCM.PN ---
Subjective - Date & Time of Evaluation Date of Evaluation: 01/17/19 Objective - Vital Signs/Intake and Output Vital Signs (last 24 hours): Temp Pulse Resp BP Pulse Ox 100.2 F H 88 26 H 124/67 99 01/18/19 18:00 01/18/19 21:14 01/18/19 18:00 01/18/19 21:14 01/18/19 18:00 Intake and Output: 01/18/19 01/19/19 18:59 06:59 Intake Total 1511 0 Output Total 600 Balance 911 0 - Medications Medications: Current Medications Acetaminophen (Tylenol 650mg/20.3ml Solution Ud) 650 mg NG Q6 PRN PRN Reason: for temp>100.4 deg f Acetylcysteine (Acetylcysteine 20%) 2 ml INH RBID JOANNA Last Admin: 01/18/19 07:37 Dose: 2 ml Albuterol Sulfate (Albuterol 0.083% Inhal Mana (2.5 Mg/3 Ml) Ud) 2.5 mg INH Q12 JOANNA Last Admin: 01/18/19 07:36 Dose: 2.5 mg Carvedilol (Coreg) 6.25 mg NG Q12 JOANNA Last Admin: 01/18/19 21:14 Dose: 6.25 mg Cilostazol (Pletal) 50 mg PO Q12 JOANNA Last Admin: 01/07/19 10:22 Dose: Not Given Dextrose (Dextrose 50% Inj) 0 ml IV STAT PRN; Protocol PRN Reason: Hypoglycemia Protocol Dextrose (Glutose 15) 0 gm PO ONCE PRN; Protocol PRN Reason: Hypoglycemia Protocol Folic Acid (Folic Acid) 1 mg GT DAILY [facility] Last Admin: 01/18/19 08:17 Dose: 1 mg Glucagon (Glucagen Diagnostic Kit) 0 mg IM STAT PRN; Protocol PRN Reason: Hypoglycemia Protocol Hydralazine HCl (Apresoline) 25 mg PO TID [facility] Last Admin: 01/18/19 17:28 Dose: Not Given Vancomycin HCl 750 mg/ Sodium (Chloride) 250 mls @ 166.667 mls/hr IVPB DAILY@1630 JOANNA; Protocol Last Admin: 01/18/19 17:26 Dose: 166.667 mls/hr Meropenem 1 gm/ Sodium (Chloride) 100 mls @ 100 mls/hr IVPB Q8 JOANNA; Protocol Last Admin: 01/19/19 00:15 Dose: 100 mls/hr Insulin Human Regular 100 (units/ Sodium Chloride) 101 mls @ 8.08 mls/hr IV .[id number] [facility]; Protocol Last Titration: 01/18/19 23:54 Dose: 7 units/hr, 7.07 mls/hr Lactulose (Enulose) 20 gm GT Q4H [facility] Last Admin: 01/18/19 21:14 Dose: 20 gm Levothyroxine Sodium (Synthroid) 50 mcg PO DAILY@0630 JOANNA Last Admin: 01/18/19 05:47 Dose: 50 mcg Pantoprazole Sodium (Protonix Susp) 40 mg NG DAILY [facility] Last Admin: 01/18/19 08:17 Dose: 40 mg Rifaximin (Xifaxan) 550 mg PO BID [facility]; Protocol Last Admin: 01/18/19 17:27 Dose: 550 mg Thiamine HCl (Vitamin B1 Tab) 100 mg GT DAILY [facility] Last Admin: 01/18/19 08:16 Dose: 100 mg - Labs Labs: 01/18/19 05:10 01/18/19 05:10 PT 16.1 Seconds (9.8-13.1) H 01/11/19 05:33 INR 1.4 01/11/19 05:33 APTT 32.9 Seconds (25.6-37.1) 01/11/19 05:33 Assessment and Plan (1) Acute respiratory failure Status: Acute (2) Altered mental status Status: Acute (3) Alcoholic cirrhosis of liver Status: Acute (4) Hepatic encephalopathy Status: Acute (5) DM type 2 (diabetes mellitus, type 2) Status: Acute
--- NOTE | 2019-01-19 00:57 | CP.PCM.PN ---
Subjective - Date & Time of Evaluation Date of Evaluation: 01/18/19 Objective - Vital Signs/Intake and Output Vital Signs (last 24 hours): Temp Pulse Resp BP Pulse Ox 100.2 F H 88 26 H 124/67 99 01/18/19 18:00 01/18/19 21:14 01/18/19 18:00 01/18/19 21:14 01/18/19 18:00 Intake and Output: 01/18/19 01/19/19 18:59 06:59 Intake Total 1511 0 Output Total 600 Balance 911 0 - Medications Medications: Current Medications Acetaminophen (Tylenol 650mg/20.3ml Solution Ud) 650 mg NG Q6 PRN PRN Reason: for temp>100.4 deg f Acetylcysteine (Acetylcysteine 20%) 2 ml INH RBID JOANNA Last Admin: 01/18/19 07:37 Dose: 2 ml Albuterol Sulfate (Albuterol 0.083% Inhal Mana (2.5 Mg/3 Ml) Ud) 2.5 mg INH Q12 [facility]ANNA Last Admin: 01/18/19 07:36 Dose: 2.5 mg Carvedilol (Coreg) 6.25 mg NG Q12 JOANNA Last Admin: 01/18/19 21:14 Dose: 6.25 mg Cilostazol (Pletal) 50 mg PO Q12 JOANNA Last Admin: 01/07/19 10:22 Dose: Not Given Dextrose (Dextrose 50% Inj) 0 ml IV STAT PRN; Protocol PRN Reason: Hypoglycemia Protocol Dextrose (Glutose 15) 0 gm PO ONCE PRN; Protocol PRN Reason: Hypoglycemia Protocol Folic Acid (Folic Acid) 1 mg GT DAILY [facility] Last Admin: 01/18/19 08:17 Dose: 1 mg Glucagon (Glucagen Diagnostic Kit) 0 mg IM STAT PRN; Protocol PRN Reason: Hypoglycemia Protocol Hydralazine HCl (Apresoline) 25 mg PO TID [facility] Last Admin: 01/18/19 17:28 Dose: Not Given Vancomycin HCl 750 mg/ Sodium (Chloride) 250 mls @ 166.667 mls/hr IVPB DAILY@1630 JOANNA; Protocol Last Admin: 01/18/19 17:26 Dose: 166.667 mls/hr Meropenem 1 gm/ Sodium (Chloride) 100 mls @ 100 mls/hr IVPB Q8 JOANNA; Protocol Last Admin: 01/19/19 00:15 Dose: 100 mls/hr Insulin Human Regular 100 (units/ Sodium Chloride) 101 mls @ 8.08 mls/hr IV .[id number] [facility]; Protocol Last Titration: 01/18/19 23:54 Dose: 7 units/hr, 7.07 mls/hr Lactulose (Enulose) 20 gm GT Q4H [facility] Last Admin: 01/18/19 21:14 Dose: 20 gm Levothyroxine Sodium (Synthroid) 50 mcg PO DAILY@0630 [facility] Last Admin: 01/18/19 05:47 Dose: 50 mcg Pantoprazole Sodium (Protonix Susp) 40 mg NG DAILY [facility] Last Admin: 01/18/19 08:17 Dose: 40 mg Rifaximin (Xifaxan) 550 mg PO BID [facility]; Protocol Last Admin: 01/18/19 17:27 Dose: 550 mg Thiamine HCl (Vitamin B1 Tab) 100 mg GT DAILY [facility] Last Admin: 01/18/19 08:16 Dose: 100 mg - Labs Labs: 01/18/19 05:10 01/18/19 05:10 PT 16.1 Seconds (9.8-13.1) H 01/11/19 05:33 INR 1.4 01/11/19 05:33 APTT 32.9 Seconds (25.6-37.1) 01/11/19 05:33 Assessment and Plan (1) Acute respiratory failure Status: Acute (2) Altered mental status Status: Acute (3) Alcoholic cirrhosis of liver Status: Acute (4) Hepatic encephalopathy Status: Acute (5) DM type 2 (diabetes mellitus, type 2) Status: Acute
[2019-01-19 04:13] LABS: ABG ALLEN TEST YES; ARTERIAL BLOOD GAS HCO3 29.9 mmol/L (21-28); ARTERIAL BLOOD GAS HEMOGLOBIN 12.6 g/dL (11.7-17.4); ARTERIAL BLOOD GAS O2 CAPACITY 17.1 mL/dL (16-24); ARTERIAL BLOOD GAS O2 CONTENT 16.9 ML/dL (15-23); ARTERIAL BLOOD GAS O2 SAT 98.8 % (95-98); ARTERIAL BLOOD GAS PCO2 35 mm/Hg (35-45); ARTERIAL BLOOD GAS PH 7.53 (7.35-7.45); ARTERIAL BLOOD GAS PO2 85 mm/Hg (80-100); ARTERIAL BLOOD GAS TCO2 30.3 mmol/L (22-28)
[2019-01-19 06:17] LABS: BASO % 0.2 % (0.0-2.0); EOS # 0.3 K/uL (0.0-0.7); EOS % 2.3 % (0.0-4.0); HEMOGLOBIN 12.3 g/dL (12.0-18.0); LYMPH # 0.6 K/uL (1.0-4.3); LYMPH % 5.4 % (20.0-40.0); MEAN CELL VOLUME 112.5 fl (80.0-94.0); MEAN CORPUSCULAR HEMOGLOBIN 38.1 pg (27.0-31.0); MEAN CORPUSCULAR HGB CONC 33.8 g/dL (33.0-37.0); MEAN PLATELET VOLUME 10.1 fl (7.2-11.7); MONO # 1.5 K/uL (0.0-0.8); MONO % 12.7 % (0.0-10.0); NEUT # 9.5 K/uL (1.8-7.0); NEUT % 79.4 % (50.0-75.0); NRBC % 0.1 % (0.0-0.0); PLATELET COUNT 134 K/uL (130-400); RBC 3.22 Mil/uL (4.40-5.90); WHITE BLOOD COUNT 11.9 K/uL (4.8-10.8)
[2019-01-19 06:22] LABS: ALB/GLOB RATIO 0.6 (1.0-2.1); ALBUMIN 2.2 g/dL (3.5-5.0); ALT/SGPT 64 U/L (21-72); AST/SGOT 94 U/L (17-59); BLOOD UREA NITROGEN 77 mg/dl (9-20); CALCIUM 8.5 mg/dL (8.4-10.2); GFR NON-AFRICAN AMERICAN 50
[2019-01-19] MEDS: Levothyroxine 50 MCG TAB PO SCH (06:30)
[2019-01-19] MEDS: Acetylcysteine 20% Inhal Soln (4ml) INH SCH ×2 (08:23→19:30)
[2019-01-19] MEDS: Albuterol 0.083% Inhal Sol (2.5 mg/3 mL) UD INH SCH ×2 (08:25→19:30)
--- NOTE | 2019-01-19 08:26 | CP.CCUPN ---
CCU Subjective - Physician Review Events Since Last Encounter (Free Text): Patient on ventilator on PRVC TV 400, RR 10, FIO2 30%, no pressor, no fever, on OG tube feeding, events reviewed CCU Objective - Vital Signs / Intake & Output Vital Signs (Last 4 hours): Vital Signs Pulse Resp BP Pulse Ox 01/19/19 06:00 77 22 139/71 98 Intake and Output (Last 8hrs): Intake & Output 01/18/19 01/19/19 01/19/19 22:59 06:59 14:59 Intake Total 686 740 100 Output Total 600 900 Balance 86 -160 100 Weight 221 lb 9.6 oz Intake: IV 1 0 100 Tube Feeding 385 440 Free Water Flush 300 300 Output: Stool 600 900 Other: # Bowel Movements 1 - Physical Exam Head: Positive for: Atraumatic, Normocephalic Pupils: Positive for: PERRL Conjunctiva: Positive for: Icteric Ears: Positive for: Normal Mouth: Positive for: Moist Mucous Membranes Nose (External): Positive for: Atraumatic Respiratory/Chest: Positive for: Clear to Auscultation, Good Air Exchange Cardiovascular: Positive for: Regular Rate and Rhythm Abdomen: Positive for: Normal Bowel Sounds. Negative for: Tenderness, Distention Upper Extremity: Positive for: Edema, Swelling (b/l upper extremities swelling and edema, 2+) Lower Extremity: Positive for: Edema Psychiatric: Negative for: Alert - Medications Active Medications: Active Medications Generic Name Dose Route Start Last Admin Trade Name Freq PRN Reason Stop Dose Admin Acetaminophen 650 mg 01/18/19 13:39 Tylenol 650mg/20.3ml Solution Ud NG Q6 PRN for temp>100.4 deg f Acetylcysteine 2 ml 01/17/19 20:00 01/18/19 07:37 Acetylcysteine 20% INH 2 ml RBID JOANNA Administration Albuterol Sulfate 2.5 mg 01/17/19 10:00 01/18/19 07:36 Albuterol 0.083% Inhal Mana (2.5 Mg/3 Ml) Ud INH 2.5 mg Q12 JOANNA Administration Carvedilol 6.25 mg 01/06/19 21:00 01/18/19 21:14 Coreg NG 6.25 mg Q12 JOANNA Administration Cilostazol 50 mg 01/06/19 10:30 01/07/19 10:22 Pletal PO Not Given Q12 JOANNA Dextrose 0 ml 01/18/19 17:22 Dextrose 50% Inj IV STAT PRN Hypoglycemia Protocol Protocol Dextrose 0 gm 01/18/19 17:22 Glutose 15 PO ONCE PRN Hypoglycemia Protocol Protocol Folic Acid 1 mg 01/10/19 09:00 01/18/19 08:17 Folic Acid GT 1 mg DAILY JOANNA Administration Glucagon 0 mg 01/18/19 17:22 Glucagen Diagnostic Kit IM STAT PRN Hypoglycemia Protocol Protocol Hydralazine HCl 25 mg 01/12/19 13:00 01/18/19 17:28 Apresoline PO Not Given TID JONANA Vancomycin HCl 750 mg/ Sodium 250 mls @ 166.667 mls/hr 01/17/19 16:30 01/18/19 17:26 Chloride IVPB 166.667 mls/hr DAILY@1630 JOANNA Administration Protocol Meropenem 1 gm/ Sodium 100 mls @ 100 mls/hr 01/18/19 17:15 01/19/19 00:15 Chloride IVPB 100 mls/hr Q8 JOANNA Administration Protocol Insulin Human Regular 100 101 mls @ 8.08 mls/hr 01/18/19 17:30 01/19/19 07:15 units/ Sodium Chloride IV 2 units/hr .[id number] JOANNA 2.02 mls/hr Administration Protocol 8 UNITS/HR Lactulose 20 gm 01/13/19 06:15 01/19/19 06:30 Enulose GT 20 gm Q4H JOANNA Administration Levothyroxine Sodium 50 mcg 01/09/19 06:30 01/19/19 06:30 Synthroid PO 50 mcg DAILY@0630 JOANNA Administration Pantoprazole Sodium 40 mg 01/07/19 13:15 01/18/19 08:17 Protonix Susp NG 40 mg DAILY JOANNA Administration Rifaximin 550 mg 01/11/19 17:00 01/18/19 17:27 Xifaxan PO 550 mg BID JOANNA Administration Protocol Thiamine HCl 100 mg 01/10/19 09:00 01/18/19 08:16 Vitamin B1 Tab GT 100 mg DAILY JOANNA Administration - Patient Studies Lab Studies: Microbiology Studies 01/15/19 18:40 Blood Culture - Preliminary Blood NO GROWTH AFTER 3 DAYS 01/15/19 17:45 Blood Culture - Preliminary Blood NO GROWTH AFTER 3 DAYS 01/15/19 07:16 Urine Culture - Final Urine,Howe Beta Hemolytic Strep Group B 01/17/19 18:20 Gram Stain - Final Sputum Sputum Culture - Preliminary Gram Negative Dmitri Lab Studies 01/19/19 01/19/19 01/19/19 Range/Units 06:14 05:26 04:58 WBC (4.8-10.8) K/uL RBC (4.40-5.90) Mil/uL Hgb (12.0-18.0) g/dL Hct (35.0-51.0) % MCV (80.0-94.0) fl MCH (27.0-31.0) pg MCHC (33.0-37.0) g/dL RDW (11.5-14.5) % Plt Count (130-400) K/uL MPV (7.2-11.7) fl Neut % (Auto) (50.0-75.0) % Lymph % (Auto) (20.0-40.0) % [place] % (Auto) (0.0-10.0) % Eos % (Auto) (0.0-4.0) % Baso % (Auto) (0.0-2.0) % Neut # (Auto) (1.8-7.0) K/uL Lymph # (Auto) (1.0-4.3) K/uL [place] # (Auto) (0.0-0.8) K/uL Eos # (Auto) (0.0-0.7) K/uL Baso # (Auto) (0.0-0.2) K/uL pCO2 (35-45) mm/Hg pO2 (80-100) mm/Hg HCO3 (21-28) mmol/L ABG pH (7.35-7.45) ABG Total CO2 (22-28) mmol/L ABG O2 Saturation (95-98) % ABG O2 Content (15-23) ML/dL ABG Base Excess (-2.0-3.0) mmol/L ABG Hemoglobin (11.7-17.4) g/dL ABG Carboxyhemoglobin (0.5-1.5) % POC ABG HHb (Measured) (0.0-5.0) % ABG Methemoglobin (0.0-3.0) % ABG O2 Capacity (16-24) mL/dL [place] Test A-a O2 Difference mm/Hg Hgb O2 Saturation (95.0-98.0) % Vent Mode Mechanical Rate FiO2 % Tidal Volume PEEP Sodium (132-148) mmol/l Potassium (3.6-5.0) MMOL/L Chloride (98-107) mmol/L Carbon Dioxide (22-30) mmol/L Anion Gap (10-20) BUN (9-20) mg/dl Creatinine (0.8-1.5) mg/dl Est GFR ( Amer) Est GFR (Non-Af Amer) POC Glucose (mg/dL) 180 H 221 H 225 H (65-110) mg/dL Random Glucose (75-110) mg/dL Lactic Acid (0.7-2.1) mmol/L Calcium (8.4-10.2) mg/dL Phosphorus (2.5-4.5) mg/dl Magnesium (1.6-2.3) MG/DL Total Bilirubin (0.2-1.3) mg/dl AST (17-59) U/L ALT (21-72) U/L Alkaline Phosphatase (38-126) U/L Ammonia (9-33) umol/L Total Protein (6.3-8.2) G/DL Albumin (3.5-5.0) g/dL Globulin (2.2-3.9) gm/dL Albumin/Globulin Ratio (1.0-2.1) Random Vancomycin ug/mL 01/19/19 01/19/19 01/19/19 Range/Units 04:30 04:30 04:30 WBC (4.8-10.8) K/uL RBC (4.40-5.90) Mil/uL Hgb (12.0-18.0) g/dL Hct (35.0-51.0) % MCV (80.0-94.0) fl MCH (27.0-31.0) pg MCHC (33.0-37.0) g/dL RDW (11.5-14.5) % Plt Count (130-400) K/uL MPV (7.2-11.7) fl Neut % (Auto) (50.0-75.0) % Lymph % (Auto) (20.0-40.0) % [place] % (Auto) (0.0-10.0) % Eos % (Auto) (0.0-4.0) % Baso % (Auto) (0.0-2.0) % Neut # (Auto) (1.8-7.0) K/uL Lymph # (Auto) (1.0-4.3) K/uL [place] # (Auto) (0.0-0.8) K/uL Eos # (Auto) (0.0-0.7) K/uL Baso # (Auto) (0.0-0.2) K/uL pCO2 (35-45) mm/Hg pO2 (80-100) mm/Hg HCO3 (21-28) mmol/L ABG pH (7.35-7.45) ABG Total CO2 (22-28) mmol/L ABG O2 Saturation (95-98) % ABG O2 Content (15-23) ML/dL ABG Base Excess (-2.0-3.0) mmol/L ABG Hemoglobin (11.7-17.4) g/dL ABG Carboxyhemoglobin (0.5-1.5) % POC ABG HHb (Measured) (0.0-5.0) % ABG Methemoglobin (0.0-3.0) % ABG O2 Capacity (16-24) mL/dL [place] Test A-a O2 Difference mm/Hg Hgb O2 Saturation (95.0-98.0) % Vent Mode Mechanical Rate FiO2 % Tidal Volume PEEP Sodium 144 (132-148) mmol/l Potassium 4.3 (3.6-5.0) MMOL/L Chloride 112 H (98-107) mmol/L Carbon Dioxide 30 (22-30) mmol/L Anion Gap 6 L (10-20) BUN 77 H (9-20) mg/dl Creatinine 1.4 (0.8-1.5) mg/dl Est GFR ( Amer) > 60 Est GFR (Non-Af Amer) 50 POC Glucose (mg/dL) (65-110) mg/dL Random Glucose 219 H (75-110) mg/dL Lactic Acid 1.2 (0.7-2.1) mmol/L Calcium 8.5 (8.4-10.2) mg/dL Phosphorus 2.8 (2.5-4.5) mg/dl Magnesium 3.9 H (1.6-2.3) MG/DL Total Bilirubin 1.8 H (0.2-1.3) mg/dl AST 94 H (17-59) U/L ALT 64 (21-72) U/L Alkaline Phosphatase 388 H (38-126) U/L Ammonia 60 H D (9-33) umol/L Total Protein 6.0 L (6.3-8.2) G/DL Albumin 2.2 L (3.5-5.0) g/dL Globulin 3.8 (2.2-3.9) gm/dL Albumin/Globulin Ratio 0.6 L (1.0-2.1) Random Vancomycin ug/mL 01/19/19 01/19/19 01/19/19 Range/Units 04:30 04:04 03:58 WBC 11.9 H (4.8-10.8) K/uL RBC 3.22 L (4.40-5.90) Mil/uL Hgb 12.3 (12.0-18.0) g/dL Hct 36.3 (35.0-51.0) % MCV 112.5 H (80.0-94.0) fl MCH 38.1 H (27.0-31.0) pg MCHC 33.8 (33.0-37.0) g/dL RDW 18.0 H (11.5-14.5) % Plt Count 134 (130-400) K/uL MPV 10.1 (7.2-11.7) fl Neut % (Auto) 79.4 H (50.0-75.0) % Lymph % (Auto) 5.4 L (20.0-40.0) % [place] % (Auto) 12.7 H (0.0-10.0) % Eos % (Auto) 2.3 (0.0-4.0) % Baso % (Auto) 0.2 (0.0-2.0) % Neut # (Auto) 9.5 H (1.8-7.0) K/uL Lymph # (Auto) 0.6 L (1.0-4.3) K/uL [place] # (Auto) 1.5 H (0.0-0.8) K/uL Eos # (Auto) 0.3 (0.0-0.7) K/uL Baso # (Auto) 0.0 (0.0-0.2) K/uL pCO2 35 (35-45) mm/Hg pO2 85 (80-100) mm/Hg HCO3 29.9 H (21-28) mmol/L ABG pH 7.53 H (7.35-7.45) ABG Total CO2 30.3 H (22-28) mmol/L ABG O2 Saturation 98.8 H (95-98) % ABG O2 Content 16.9 (15-23) ML/dL ABG Base Excess 6.4 H (-2.0-3.0) mmol/L ABG Hemoglobin 12.6 (11.7-17.4) g/dL ABG Carboxyhemoglobin 2.0 H (0.5-1.5) % POC ABG HHb (Measured) 1.2 (0.0-5.0) % ABG Methemoglobin 1.8 (0.0-3.0) % ABG O2 Capacity 17.1 (16-24) mL/dL Lupillo Test Yes A-a O2 Difference 85.0 mm/Hg Hgb O2 Saturation 95.0 (95.0-98.0) % Vent Mode A/c Mechanical Rate 10 FiO2 30.0 % Tidal Volume 400 PEEP 5 Sodium (132-148) mmol/l Potassium (3.6-5.0) MMOL/L Chloride (98-107) mmol/L Carbon Dioxide (22-30) mmol/L Anion Gap (10-20) BUN (9-20) mg/dl Creatinine (0.8-1.5) mg/dl Est GFR ( Amer) Est GFR (Non-Af Amer) POC Glucose (mg/dL) 276 H (65-110) mg/dL Random Glucose (75-110) mg/dL Lactic Acid (0.7-2.1) mmol/L Calcium (8.4-10.2) mg/dL Phosphorus (2.5-4.5) mg/dl Magnesium (1.6-2.3) MG/DL Total Bilirubin (0.2-1.3) mg/dl AST (17-59) U/L ALT (21-72) U/L Alkaline Phosphatase (38-126) U/L Ammonia (9-33) umol/L Total Protein (6.3-8.2) G/DL Albumin (3.5-5.0) g/dL Globulin (2.2-3.9) gm/dL Albumin/Globulin Ratio (1.0-2.1) Random Vancomycin ug/mL 01/19/19 01/19/19 01/19/19 Range/Units 02:57 02:00 00:56 WBC (4.8-10.8) K/uL RBC (4.40-5.90) Mil/uL Hgb (12.0-18.0) g/dL Hct (35.0-51.0) % MCV (80.0-94.0) fl MCH (27.0-31.0) pg MCHC (33.0-37.0) g/dL RDW (11.5-14.5) % Plt Count (130-400) K/uL MPV (7.2-11.7) fl Neut % (Auto) (50.0-75.0) % Lymph % (Auto) (20.0-40.0) % [place] % (Auto) (0.0-10.0) % Eos % (Auto) (0.0-4.0) % Baso % (Auto) (0.0-2.0) % Neut # (Auto) (1.8-7.0) K/uL Lymph # (Auto) (1.0-4.3) K/uL [place] # (Auto) (0.0-0.8) K/uL Eos # (Auto) (0.0-0.7) K/uL Baso # (Auto) (0.0-0.2) K/uL pCO2 (35-45) mm/Hg pO2 (80-100) mm/Hg HCO3 (21-28) mmol/L ABG pH (7.35-7.45) ABG Total CO2 (22-28) mmol/L ABG O2 Saturation (95-98) % ABG O2 Content (15-23) ML/dL ABG Base Excess (-2.0-3.0) mmol/L ABG Hemoglobin (11.7-17.4) g/dL ABG Carboxyhemoglobin (0.5-1.5) % POC ABG HHb (Measured) (0.0-5.0) % ABG Methemoglobin (0.0-3.0) % ABG O2 Capacity (16-24) mL/dL [place] Test A-a O2 Difference mm/Hg Hgb O2 Saturation (95.0-98.0) % Vent Mode Mechanical Rate FiO2 % Tidal Volume PEEP Sodium (132-148) mmol/l Potassium (3.6-5.0) MMOL/L Chloride (98-107) mmol/L Carbon Dioxide (22-30) mmol/L Anion Gap (10-20) BUN (9-20) mg/dl Creatinine (0.8-1.5) mg/dl Est GFR ( Amer) Est GFR (Non-Af Amer) POC Glucose (mg/dL) 271 H 276 H 291 H (65-110) mg/dL Random Glucose (75-110) mg/dL Lactic Acid (0.7-2.1) mmol/L Calcium (8.4-10.2) mg/dL Phosphorus (2.5-4.5) mg/dl Magnesium (1.6-2.3) MG/DL Total Bilirubin (0.2-1.3) mg/dl AST (17-59) U/L ALT (21-72) U/L Alkaline Phosphatase (38-126) U/L Ammonia (9-33) umol/L Total Protein (6.3-8.2) G/DL Albumin (3.5-5.0) g/dL Globulin (2.2-3.9) gm/dL Albumin/Globulin Ratio (1.0-2.1) Random Vancomycin ug/mL 01/18/19 01/18/19 01/18/19 Range/Units 23:53 22:50 21:50 WBC (4.8-10.8) K/uL RBC (4.40-5.90) Mil/uL Hgb (12.0-18.0) g/dL Hct (35.0-51.0) % MCV (80.0-94.0) fl MCH (27.0-31.0) pg MCHC (33.0-37.0) g/dL RDW (11.5-14.5) % Plt Count (130-400) K/uL MPV (7.2-11.7) fl Neut % (Auto) (50.0-75.0) % Lymph % (Auto) (20.0-40.0) % [place] % (Auto) (0.0-10.0) % Eos % (Auto) (0.0-4.0) % Baso % (Auto) (0.0-2.0) % Neut # (Auto) (1.8-7.0) K/uL Lymph # (Auto) (1.0-4.3) K/uL [place] # (Auto) (0.0-0.8) K/uL Eos # (Auto) (0.0-0.7) K/uL Baso # (Auto) (0.0-0.2) K/uL pCO2 (35-45) mm/Hg pO2 (80-100) mm/Hg HCO3 (21-28) mmol/L ABG pH (7.35-7.45) ABG Total CO2 (22-28) mmol/L ABG O2 Saturation (95-98) % ABG O2 Content (15-23) ML/dL ABG Base Excess (-2.0-3.0) mmol/L ABG Hemoglobin (11.7-17.4) g/dL ABG Carboxyhemoglobin (0.5-1.5) % POC ABG HHb (Measured) (0.0-5.0) % ABG Methemoglobin (0.0-3.0) % ABG O2 Capacity (16-24) mL/dL [place] Test A-a O2 Difference mm/Hg Hgb O2 Saturation (95.0-98.0) % Vent Mode Mechanical Rate FiO2 % Tidal Volume PEEP Sodium (132-148) mmol/l Potassium (3.6-5.0) MMOL/L Chloride (98-107) mmol/L Carbon Dioxide (22-30) mmol/L Anion Gap (10-20) BUN (9-20) mg/dl Creatinine (0.8-1.5) mg/dl Est GFR ( Amer) Est GFR (Non-Af Amer) POC Glucose (mg/dL) 310 H 361 H 357 H (65-110) mg/dL Random Glucose (75-110) mg/dL Lactic Acid (0.7-2.1) mmol/L Calcium (8.4-10.2) mg/dL Phosphorus (2.5-4.5) mg/dl Magnesium (1.6-2.3) MG/DL Total Bilirubin (0.2-1.3) mg/dl AST (17-59) U/L ALT (21-72) U/L Alkaline Phosphatase (38-126) U/L Ammonia (9-33) umol/L Total Protein (6.3-8.2) G/DL Albumin (3.5-5.0) g/dL Globulin (2.2-3.9) gm/dL Albumin/Globulin Ratio (1.0-2.1) Random Vancomycin ug/mL 01/18/19 01/18/19 01/18/19 Range/Units 20:54 19:51 18:27 WBC (4.8-10.8) K/uL RBC (4.40-5.90) Mil/uL Hgb (12.0-18.0) g/dL Hct (35.0-51.0) % MCV (80.0-94.0) fl MCH (27.0-31.0) pg MCHC (33.0-37.0) g/dL RDW (11.5-14.5) % Plt Count (130-400) K/uL MPV (7.2-11.7) fl Neut % (Auto) (50.0-75.0) % Lymph % (Auto) (20.0-40.0) % [place] % (Auto) (0.0-10.0) % Eos % (Auto) (0.0-4.0) % Baso % (Auto) (0.0-2.0) % Neut # (Auto) (1.8-7.0) K/uL Lymph # (Auto) (1.0-4.3) K/uL [place] # (Auto) (0.0-0.8) K/uL Eos # (Auto) (0.0-0.7) K/uL Baso # (Auto) (0.0-0.2) K/uL pCO2 (35-45) mm/Hg pO2 (80-100) mm/Hg HCO3 (21-28) mmol/L ABG pH (7.35-7.45) ABG Total CO2 (22-28) mmol/L ABG O2 Saturation (95-98) % ABG O2 Content (15-23) ML/dL ABG Base Excess (-2.0-3.0) mmol/L ABG Hemoglobin (11.7-17.4) g/dL ABG Carboxyhemoglobin (0.5-1.5) % POC ABG HHb (Measured) (0.0-5.0) % ABG Methemoglobin (0.0-3.0) % ABG O2 Capacity (16-24) mL/dL [place] Test A-a O2 Difference mm/Hg Hgb O2 Saturation (95.0-98.0) % Vent Mode Mechanical Rate FiO2 % Tidal Volume PEEP Sodium (132-148) mmol/l Potassium (3.6-5.0) MMOL/L Chloride (98-107) mmol/L Carbon Dioxide (22-30) mmol/L Anion Gap (10-20) BUN (9-20) mg/dl Creatinine (0.8-1.5) mg/dl Est GFR ( Amer) Est GFR (Non-Af Amer) POC Glucose (mg/dL) 395 H 403 H* 431 H* (65-110) mg/dL Random Glucose (75-110) mg/dL Lactic Acid (0.7-2.1) mmol/L Calcium (8.4-10.2) mg/dL Phosphorus (2.5-4.5) mg/dl Magnesium (1.6-2.3) MG/DL Total Bilirubin (0.2-1.3) mg/dl AST (17-59) U/L ALT (21-72) U/L Alkaline Phosphatase (38-126) U/L Ammonia (9-33) umol/L Total Protein (6.3-8.2) G/DL Albumin (3.5-5.0) g/dL Globulin (2.2-3.9) gm/dL Albumin/Globulin Ratio (1.0-2.1) Random Vancomycin ug/mL 01/18/19 01/18/19 01/18/19 Range/Units 16:59 12:02 10:55 WBC (4.8-10.8) K/uL RBC (4.40-5.90) Mil/uL Hgb (12.0-18.0) g/dL Hct (35.0-51.0) % MCV (80.0-94.0) fl MCH (27.0-31.0) pg MCHC (33.0-37.0) g/dL RDW (11.5-14.5) % Plt Count (130-400) K/uL MPV (7.2-11.7) fl Neut % (Auto) (50.0-75.0) % Lymph % (Auto) (20.0-40.0) % [place] % (Auto) (0.0-10.0) % Eos % (Auto) (0.0-4.0) % Baso % (Auto) (0.0-2.0) % Neut # (Auto) (1.8-7.0) K/uL Lymph # (Auto) (1.0-4.3) K/uL [place] # (Auto) (0.0-0.8) K/uL Eos # (Auto) (0.0-0.7) K/uL Baso # (Auto) (0.0-0.2) K/uL pCO2 (35-45) mm/Hg pO2 (80-100) mm/Hg HCO3 (21-28) mmol/L ABG pH (7.35-7.45) ABG Total CO2 (22-28) mmol/L ABG O2 Saturation (95-98) % ABG O2 Content (15-23) ML/dL ABG Base Excess (-2.0-3.0) mmol/L ABG Hemoglobin (11.7-17.4) g/dL ABG Carboxyhemoglobin (0.5-1.5) % POC ABG HHb (Measured) (0.0-5.0) % ABG Methemoglobin (0.0-3.0) % ABG O2 Capacity (16-24) mL/dL [place] Test A-a O2 Difference mm/Hg Hgb O2 Saturation (95.0-98.0) % Vent Mode Mechanical Rate FiO2 % Tidal Volume PEEP Sodium (132-148) mmol/l Potassium (3.6-5.0) MMOL/L Chloride (98-107) mmol/L Carbon Dioxide (22-30) mmol/L Anion Gap (10-20) BUN (9-20) mg/dl Creatinine (0.8-1.5) mg/dl Est GFR ( Amer) Est GFR (Non-Af Amer) POC Glucose (mg/dL) 457 H* 389 H (65-110) mg/dL Random Glucose (75-110) mg/dL Lactic Acid (0.7-2.1) mmol/L Calcium (8.4-10.2) mg/dL Phosphorus (2.5-4.5) mg/dl Magnesium (1.6-2.3) MG/DL Total Bilirubin (0.2-1.3) mg/dl AST (17-59) U/L ALT (21-72) U/L Alkaline Phosphatase (38-126) U/L Ammonia (9-33) umol/L Total Protein (6.3-8.2) G/DL Albumin (3.5-5.0) g/dL Globulin (2.2-3.9) gm/dL Albumin/Globulin Ratio (1.0-2.1) Random Vancomycin 5.8 ug/mL Laboratory Results - last 24 hr 01/18/19 01/18/19 01/18/19 10:55 12:02 16:59 WBC RBC Hgb Hct MCV MCH MCHC RDW Plt Count MPV Neut % (Auto) Lymph % (Auto) [place] % (Auto) Eos % (Auto) Baso % (Auto) Neut # (Auto) Lymph # (Auto) [place] # (Auto) Eos # (Auto) Baso # (Auto) pCO2 pO2 HCO3 ABG pH ABG Total CO2 ABG O2 Saturation ABG O2 Content ABG Base Excess ABG Hemoglobin ABG Carboxyhemoglobin POC ABG HHb (Measured) ABG Methemoglobin ABG O2 Capacity [place] Test A-a O2 Difference Hgb O2 Saturation Vent Mode Mechanical Rate FiO2 Tidal Volume PEEP Sodium Potassium Chloride Carbon Dioxide Anion Gap BUN Creatinine Est GFR ( Amer) Est GFR (Non-Af Amer) POC Glucose (mg/dL) 389 H 457 H* Random Glucose Lactic Acid Calcium Phosphorus Magnesium Total Bilirubin AST ALT Alkaline Phosphatase Ammonia Total Protein Albumin Globulin Albumin/Globulin Ratio Random Vancomycin 5.8 01/18/19 01/18/19 01/18/19 18:27 19:51 20:54 WBC RBC Hgb Hct MCV MCH MCHC RDW Plt Count MPV Neut % (Auto) Lymph % (Auto) [place] % (Auto) Eos % (Auto) Baso % (Auto) Neut # (Auto) Lymph # (Auto) [place] # (Auto) Eos # (Auto) Baso # (Auto) pCO2 pO2 HCO3 ABG pH ABG Total CO2 ABG O2 Saturation ABG O2 Content ABG Base Excess ABG Hemoglobin ABG Carboxyhemoglobin POC ABG HHb (Measured) ABG Methemoglobin ABG O2 Capacity [place] Test A-a O2 Difference Hgb O2 Saturation Vent Mode Mechanical Rate FiO2 Tidal Volume PEEP Sodium Potassium Chloride Carbon Dioxide Anion Gap BUN Creatinine Est GFR ( Amer) Est GFR (Non-Af Amer) POC Glucose (mg/dL) 431 H* 403 H* 395 H Random Glucose Lactic Acid Calcium Phosphorus Magnesium Total Bilirubin AST ALT Alkaline Phosphatase Ammonia Total Protein Albumin Globulin Albumin/Globulin Ratio Random Vancomycin 01/18/19 01/18/19 01/18/19 21:50 22:50 23:53 WBC RBC Hgb Hct MCV MCH MCHC RDW Plt Count MPV Neut % (Auto) Lymph % (Auto) [place] % (Auto) Eos % (Auto) Baso % (Auto) Neut # (Auto) Lymph # (Auto) [place] # (Auto) Eos # (Auto) Baso # (Auto) pCO2 pO2 HCO3 ABG pH ABG Total CO2 ABG O2 Saturation ABG O2 Content ABG Base Excess ABG Hemoglobin ABG Carboxyhemoglobin POC ABG HHb (Measured) ABG Methemoglobin ABG O2 Capacity [place] Test A-a O2 Difference Hgb O2 Saturation Vent Mode Mechanical Rate FiO2 Tidal Volume PEEP Sodium Potassium Chloride Carbon Dioxide Anion Gap BUN Creatinine Est GFR ( Amer) Est GFR (Non-Af Amer) POC Glucose (mg/dL) 357 H 361 H 310 H Random Glucose Lactic Acid Calcium Phosphorus Magnesium Total Bilirubin AST ALT Alkaline Phosphatase Ammonia Total Protein Albumin Globulin Albumin/Globulin Ratio Random Vancomycin 01/19/19 01/19/19 01/19/19 00:56 02:00 02:57 WBC RBC Hgb Hct MCV MCH MCHC RDW Plt Count MPV Neut % (Auto) Lymph % (Auto) [place] % (Auto) Eos % (Auto) Baso % (Auto) Neut # (Auto) Lymph # (Auto) [place] # (Auto) Eos # (Auto) Baso # (Auto) pCO2 pO2 HCO3 ABG pH ABG Total CO2 ABG O2 Saturation ABG O2 Content ABG Base Excess ABG Hemoglobin ABG Carboxyhemoglobin POC ABG HHb (Measured) ABG Methemoglobin ABG O2 Capacity [place] Test A-a O2 Difference Hgb O2 Saturation Vent Mode Mechanical Rate FiO2 Tidal Volume PEEP Sodium Potassium Chloride Carbon Dioxide Anion Gap BUN Creatinine Est GFR ( Amer) Est GFR (Non-Af Amer) POC Glucose (mg/dL) 291 H 276 H 271 H Random Glucose Lactic Acid Calcium Phosphorus Magnesium Total Bilirubin AST ALT Alkaline Phosphatase Ammonia Total Protein Albumin Globulin Albumin/Globulin Ratio Random Vancomycin 01/19/19 01/19/19 01/19/19 03:58 04:04 04:30 WBC 11.9 H RBC 3.22 L Hgb 12.3 Hct 36.3 MCV 112.5 H MCH 38.1 H MCHC 33.8 RDW 18.0 H Plt Count 134 MPV 10.1 Neut % (Auto) 79.4 H Lymph % (Auto) 5.4 L [place] % (Auto) 12.7 H Eos % (Auto) 2.3 Baso % (Auto) 0.2 Neut # (Auto) 9.5 H Lymph # (Auto) 0.6 L [place] # (Auto) 1.5 H Eos # (Auto) 0.3 Baso # (Auto) 0.0 pCO2 35 pO2 85 HCO3 29.9 H ABG pH 7.53 H ABG Total CO2 30.3 H ABG O2 Saturation 98.8 H ABG O2 Content 16.9 ABG Base Excess 6.4 H ABG Hemoglobin 12.6 ABG Carboxyhemoglobin 2.0 H POC ABG HHb (Measured) 1.2 ABG Methemoglobin 1.8 ABG O2 Capacity 17.1 [place] Test Yes A-a O2 Difference 85.0 Hgb O2 Saturation 95.0 Vent Mode A/c Mechanical Rate 10 FiO2 30.0 Tidal Volume 400 PEEP 5 Sodium Potassium Chloride Carbon Dioxide Anion Gap BUN Creatinine Est GFR ( Amer) Est GFR (Non-Af Amer) POC Glucose (mg/dL) 276 H Random Glucose Lactic Acid Calcium Phosphorus Magnesium Total Bilirubin AST ALT Alkaline Phosphatase Ammonia Total Protein Albumin Globulin Albumin/Globulin Ratio Random Vancomycin 01/19/19 01/19/19 01/19/19 04:30 04:30 04:30 WBC RBC Hgb Hct MCV MCH MCHC RDW Plt Count MPV Neut % (Auto) Lymph % (Auto) [place] % (Auto) Eos % (Auto) Baso % (Auto) Neut # (Auto) Lymph # (Auto) [place] # (Auto) Eos # (Auto) Baso # (Auto) pCO2 pO2 HCO3 ABG pH ABG Total CO2 ABG O2 Saturation ABG O2 Content ABG Base Excess ABG Hemoglobin ABG Carboxyhemoglobin POC ABG HHb (Measured) ABG Methemoglobin ABG O2 Capacity [place] Test A-a O2 Difference Hgb O2 Saturation Vent Mode Mechanical Rate FiO2 Tidal Volume PEEP Sodium 144 Potassium 4.3 Chloride 112 H Carbon Dioxide 30 Anion Gap 6 L BUN 77 H Creatinine 1.4 Est GFR ( Amer) > 60 Est GFR (Non-Af Amer) 50 POC Glucose (mg/dL) Random Glucose 219 H Lactic Acid 1.2 Calcium 8.5 Phosphorus 2.8 Magnesium 3.9 H Total Bilirubin 1.8 H AST 94 H ALT 64 Alkaline Phosphatase 388 H Ammonia 60 H D Total Protein 6.0 L Albumin 2.2 L Globulin 3.8 Albumin/Globulin Ratio 0.6 L Random Vancomycin 01/19/19 01/19/19 01/19/19 04:58 05:26 06:14 WBC RBC Hgb Hct MCV MCH MCHC RDW Plt Count MPV Neut % (Auto) Lymph % (Auto) [place] % (Auto) Eos % (Auto) Baso % (Auto) Neut # (Auto) Lymph # (Auto) [place] # (Auto) Eos # (Auto) Baso # (Auto) pCO2 pO2 HCO3 ABG pH ABG Total CO2 ABG O2 Saturation ABG O2 Content ABG Base Excess ABG Hemoglobin ABG Carboxyhemoglobin POC ABG HHb (Measured) ABG Methemoglobin ABG O2 Capacity [place] Test A-a O2 Difference Hgb O2 Saturation Vent Mode Mechanical Rate FiO2 Tidal Volume PEEP Sodium Potassium Chloride Carbon Dioxide Anion Gap BUN Creatinine Est GFR ( Amer) Est GFR (Non-Af Amer) POC Glucose (mg/dL) 225 H 221 H 180 H Random Glucose Lactic Acid Calcium Phosphorus Magnesium Total Bilirubin AST ALT Alkaline Phosphatase Ammonia Total Protein Albumin Globulin Albumin/Globulin Ratio Random Vancomycin Radiology Impressions: Radiology Impressions Chest X-Ray 01/18/19 06:00 IMPRESSION: Linear atelectasis medial right base. No definite pleural effusion bilaterally. Stable ET tube and orogastric tube. No pulmonary vascular congestion. Fingerstick Blood Sugar Results: 161 Assessment/Plan - Assessment and Plan (Free Text) Assessment: A/P Respiratory failure, pneumonia, altered mental status, colitis, hepatic encephalopathy, thrombocytopenia, DM, UTI - Ventilatory support - Weaning as tolerated - Continue meds - Pulmonary toilets - Follow up labs critical care 35 min
--- NOTE | 2019-01-19 08:36 | RAD ---
Date of service: 01/19/2019 HISTORY: intubated COMPARISON: Portable chest 01/18/2019. TECHNIQUE: 1 view obtained. FINDINGS: LUNGS: Endotracheal and orogastric tubes do not appear significantly changed in position. Trace patchy atelectasis is identified at the medial right base with none on the left. PLEURA: No significant pleural effusion identified, no pneumothorax apparent. CARDIOVASCULAR: No aortic atherosclerotic calcification present. Normal cardiac size. No pulmonary vascular congestion. OSSEOUS STRUCTURES: No significant abnormalities. VISUALIZED UPPER ABDOMEN: Normal. OTHER FINDINGS: None. IMPRESSION: Trace medial basilar atelectasis or infiltrate noted with remaining lung reid clear. No pulmonary vascular congestion.
[2019-01-19] MEDS: Pantoprazole 40 mg Susp UD NG SCH (08:55)
[2019-01-19 10:01] LABS: ANISOCYTOSIS SLIGHT; EOSINOPHIL 3 % (0-7); LYMPHOCYTE 5 % (20-50); MONOCYTE 10 % (0-10); MYELOCYTE 1 % (0-0); NEUTROPHIL 81 % (42-75); PLATELET ESTIMATE NORMAL (NORMAL); TOTAL CELLS COUNTED 100
[2019-01-19 10:03] LABS: LARGE PLATELETS PRESENT; TEARDROP CELLS SLIGHT
--- NOTE | 2019-01-19 16:37 | CP.PCM.PN ---
Subjective - Date & Time of Evaluation Date of Evaluation: 01/19/19 Time of Evaluation: 16:34 - Subjective Subjective: Nephrology Consultation Note Assessment: critical Acute Kidney Injury (N17.9) improving hyponatremia improved hypermagnesemia Acute respi failure, hepatic enceph, DM obesity Plan No acute need for renal replacement therapy at this time. Hypertension control with meds as ordered. Maintain hemodynamics stable. Avoid hypotension. Patient not on ACEI/ARB due to recent NIRAJ Monitor Input/Output, daily weights and renal function with basic metabolic phototypesetting equipment monitor Mag level avoid mag based laxatives/antacids Dose meds/antibiotics for improved GFR. Avoid fleets enema/magnesium based laxatives. Avoid nephrotoxins/NSAIDs Glycemic control Further work up for as per primary team Thanks for allowing me to participate in care of your patient. Will follow patient with you. Please call if any Qs. d/w team and family Dr Binu Worley Office: [phone] Subjective: Noted events overnight. Patients intubated Physical Examination: General Appearance: intubated in no acute respiratory distress Vitals reviewed and noted as below Head; Atraumatic, normocephalic Neck; supple no lymphadenopathy, no thyromegaly or bruit Lungs: Normal respiratory rate/effort. Breath sounds bilateral equal and clear Heart: Normal rate. s1s2 normal. No rub or gallop. Extremities:2+ edema. No varicose veins Neurological: Patient is awake Skin: Warm and dry. Normal turgor. No rash. Palpitation: Normal elasticity for age Abdomen: Abdomen is soft. Bowel sounds +. There is no abdominal tenderness, no guarding/rigidity no organomegaly Psych: unable MSK: no joint tenderness or swelling. Digits and nails normal, no deformity : kidney or bladder not palpable Labs/imaging reviewed. Past medical history, past surgical history, family history, social history, allergy reviewed and noted as below Family hx: no hx of CKD. Rest non-contributory Objective - Vital Signs/Intake and Output Vital Signs (last 24 hours): Temp Pulse Resp BP Pulse Ox 97.7 F 75 21 114/56 L 99 01/19/19 16:00 01/19/19 16:06 01/19/19 16:00 01/19/19 16:06 01/19/19 16:00 Intake and Output: 01/19/19 01/19/19 06:59 18:59 Intake Total 1055 781 Output Total 900 700 Balance 155 81 - Medications Medications: Current Medications Acetaminophen (Tylenol 650mg/20.3ml Solution Ud) 650 mg NG Q6 PRN PRN Reason: for temp>100.4 deg f Acetylcysteine (Acetylcysteine 20%) 2 ml INH RBID [facility] Last Admin: 01/19/19 08:23 Dose: 2 ml Albuterol Sulfate (Albuterol 0.083% Inhal Mana (2.5 Mg/3 Ml) Ud) 2.5 mg INH RBID [facility] Carvedilol (Coreg) 6.25 mg NG Q12 [facility] Last Admin: 01/19/19 08:54 Dose: 6.25 mg Cilostazol (Pletal) 50 mg PO Q12 [facility] Last Admin: 01/07/19 10:22 Dose: Not Given Dextrose (Dextrose 50% Inj) 0 ml IV STAT PRN; Protocol PRN Reason: Hypoglycemia Protocol Dextrose (Glutose 15) 0 gm PO ONCE PRN; Protocol PRN Reason: Hypoglycemia Protocol Folic Acid (Folic Acid) 1 mg GT DAILY [facility] Last Admin: 01/19/19 08:54 Dose: 1 mg Glucagon (Glucagen Diagnostic Kit) 0 mg IM STAT PRN; Protocol PRN Reason: Hypoglycemia Protocol Hydralazine HCl (Apresoline) 25 mg PO TID [facility] Last Admin: 01/19/19 16:06 Dose: 25 mg Vancomycin HCl 750 mg/ Sodium (Chloride) 250 mls @ 166.667 mls/hr IVPB DAILY@1630 [facility]; Protocol Last Admin: 01/18/19 17:26 Dose: 166.667 mls/hr Meropenem 1 gm/ Sodium (Chloride) 100 mls @ 100 mls/hr IVPB Q8 [facility]; Protocol Last Admin: 01/19/19 16:07 Dose: 100 mls/hr Insulin Human Regular 100 (units/ Sodium Chloride) 101 mls @ 8.08 mls/hr IV .[id number] [facility]; Protocol Last Titration: 01/19/19 16:03 Dose: 4 units/hr, 4.04 mls/hr Lactulose (Enulose) 20 gm GT Q4H [facility] Last Admin: 01/19/19 14:05 Dose: 20 gm Levothyroxine Sodium (Synthroid) 50 mcg PO DAILY@0630 [facility] Last Admin: 01/19/19 06:30 Dose: 50 mcg Pantoprazole Sodium (Protonix Susp) 40 mg NG DAILY [facility] Last Admin: 01/19/19 08:55 Dose: 40 mg Rifaximin (Xifaxan) 550 mg PO BID [facility]; Protocol Last Admin: 01/19/19 16:07 Dose: 550 mg Thiamine HCl (Vitamin B1 Tab) 100 mg GT DAILY [facility] Last Admin: 01/19/19 08:55 Dose: 100 mg - Labs Labs: 01/19/19 04:30 01/19/19 04:30 PT 16.1 Seconds (9.8-13.1) H 01/11/19 05:33 INR 1.4 01/11/19 05:33 APTT 32.9 Seconds (25.6-37.1) 01/11/19 05:33
--- NOTE | 2019-01-19 20:50 | CP.PCM.PN ---
Subjective - Date & Time of Evaluation Date of Evaluation: 01/19/19 Time of Evaluation: 15:30 - Subjective Subjective: Seen and examined at the bed side. Patient is following simple commands. Ammonia Level dropped to 60 today. Patient continue to be intubated. No fever or chills. Objective - Vital Signs/Intake and Output Vital Signs (last 24 hours): Temp Pulse Resp BP Pulse Ox 97.7 F 76 14 115/63 99 01/19/19 16:00 01/19/19 18:00 01/19/19 18:00 01/19/19 18:00 01/19/19 18:00 Intake and Output: 01/19/19 01/20/19 18:59 06:59 Intake Total 1115 4 Output Total 1600 Balance -485 4 - Medications Medications: Current Medications Acetaminophen (Tylenol 650mg/20.3ml Solution Ud) 650 mg NG Q6 PRN PRN Reason: for temp>100.4 deg f Acetylcysteine (Acetylcysteine 20%) 2 ml INH RBID [facility] Last Admin: 01/19/19 19:30 Dose: 2 ml Albuterol Sulfate (Albuterol 0.083% Inhal Mana (2.5 Mg/3 Ml) Ud) 2.5 mg INH RBID [facility] Last Admin: 01/19/19 19:30 Dose: 2.5 mg Carvedilol (Coreg) 6.25 mg NG Q12 [facility] Last Admin: 01/19/19 08:54 Dose: 6.25 mg Cilostazol (Pletal) 50 mg PO Q12 [facility] Last Admin: 01/07/19 10:22 Dose: Not Given Dextrose (Dextrose 50% Inj) 0 ml IV STAT PRN; Protocol PRN Reason: Hypoglycemia Protocol Dextrose (Glutose 15) 0 gm PO ONCE PRN; Protocol PRN Reason: Hypoglycemia Protocol Folic Acid (Folic Acid) 1 mg GT DAILY [facility] Last Admin: 01/19/19 08:54 Dose: 1 mg Glucagon (Glucagen Diagnostic Kit) 0 mg IM STAT PRN; Protocol PRN Reason: Hypoglycemia Protocol Hydralazine HCl (Apresoline) 25 mg PO TID [facility] Last Admin: 01/19/19 16:06 Dose: 25 mg Vancomycin HCl 750 mg/ Sodium (Chloride) 250 mls @ 166.667 mls/hr IVPB DAILY@1630 [facility]; Protocol Last Admin: 01/19/19 17:21 Dose: 166.667 mls/hr Meropenem 1 gm/ Sodium (Chloride) 100 mls @ 100 mls/hr IVPB Q8 [facility]; Protocol Last Admin: 01/19/19 16:07 Dose: 100 mls/hr Insulin Human Regular 100 (units/ Sodium Chloride) 101 mls @ 8.08 mls/hr IV .[id number] [facility]; Protocol Last Titration: 01/19/19 20:00 Dose: 1.98 units/hr, 2 mls/hr Lactulose (Enulose) 20 gm GT Q4H [facility] Last Admin: 01/19/19 17:21 Dose: 20 gm Levothyroxine Sodium (Synthroid) 50 mcg PO DAILY@0630 [facility] Last Admin: 01/19/19 06:30 Dose: 50 mcg Pantoprazole Sodium (Protonix Susp) 40 mg NG DAILY [facility] Last Admin: 01/19/19 08:55 Dose: 40 mg Rifaximin (Xifaxan) 550 mg PO BID [facility]; Protocol Last Admin: 01/19/19 16:07 Dose: 550 mg Thiamine HCl (Vitamin B1 Tab) 100 mg GT DAILY [facility] Last Admin: 01/19/19 08:55 Dose: 100 mg - Labs Labs: 01/19/19 04:30 01/19/19 04:30 PT 16.1 Seconds (9.8-13.1) H 01/11/19 05:33 INR 1.4 01/11/19 05:33 APTT 32.9 Seconds (25.6-37.1) 01/11/19 05:33 Assessment and Plan (1) Acute respiratory failure Status: Acute (2) Altered mental status Status: Acute (3) Alcoholic cirrhosis of liver Status: Acute (4) Hepatic encephalopathy Status: Acute (5) DM type 2 (diabetes mellitus, type 2) Status: Acute - Assessment and Plan (Free Text) Plan: Continue Current Care Lactulose 20gm Q4hrs RTC
[2019-01-19] MEDS ORDERED: Chlorhexidine Gluconate 1 APPL/PKT TP ONE (21:38)
[2019-01-20] MEDS: Meropenem 1 GM in Sodium Chloride 0.9% 100 ML IVPB SCH ×3 (01:01→16:17)
[2019-01-20 05:49] LABS: ABG ALLEN TEST YES; ARTERIAL BLOOD GAS HCO3 30.3 mmol/L (21-28); ARTERIAL BLOOD GAS HEMOGLOBIN 13.6 g/dL (11.7-17.4); ARTERIAL BLOOD GAS O2 CAPACITY 18.4 mL/dL (16-24); ARTERIAL BLOOD GAS O2 CONTENT 18.3 ML/dL (15-23); ARTERIAL BLOOD GAS O2 SAT 99.4 % (95-98); ARTERIAL BLOOD GAS PCO2 37 mm/Hg (35-45); ARTERIAL BLOOD GAS PH 7.52 (7.35-7.45); ARTERIAL BLOOD GAS PO2 83 mm/Hg (80-100); ARTERIAL BLOOD GAS TCO2 31.3 mmol/L (22-28)
[2019-01-20] MEDS: Levothyroxine 50 MCG TAB PO SCH (06:11)
[2019-01-20 06:41] LABS: ALB/GLOB RATIO 0.5 (1.0-2.1); ALT/SGPT 60 U/L (21-72); AST/SGOT 81 U/L (17-59); BLOOD UREA NITROGEN 67 mg/dl (9-20); CALCIUM 8.6 mg/dL (8.4-10.2); GFR NON-AFRICAN AMERICAN > 60
[2019-01-20 06:42] LABS: HEMOGLOBIN 11.9 g/dL (12.0-18.0); MEAN CORPUSCULAR HEMOGLOBIN 38.8 pg (27.0-31.0); MEAN CORPUSCULAR HGB CONC 34.3 g/dL (33.0-37.0); RBC 3.07 Mil/uL (4.40-5.90); RED CELL DISTRIBUTION WIDTH 17.6 % (11.5-14.5); WHITE BLOOD COUNT 12.5 K/uL (4.8-10.8)
[2019-01-20 06:50] LABS: MEAN CELL VOLUME 113.3 fl (80.0-94.0)
--- NOTE | 2019-01-20 07:26 | CP.CCUPN ---
CCU Subjective - Physician Review Events Since Last Encounter (Free Text): Patient on ventilator on PRVC TV 400, RR 10, FIO2 30%, no pressor, no fever, on OG tube feeding, events reviewed CCU Objective - Vital Signs / Intake & Output Vital Signs (Last 4 hours): Vital Signs Temp Pulse Resp BP Pulse Ox 01/20/19 06:00 87 20 127/66 99 01/20/19 04:00 99.9 F H 88 22 126/58 L 98 Intake and Output (Last 8hrs): Intake & Output 01/19/19 01/20/19 01/20/19 22:59 06:59 14:59 Intake Total 714 774 Output Total 1950 1100 Balance -1236 -326 Weight 204 lb 1.6 oz Intake: IV 34 54 Intake, Piggyback 100 Tube Feeding 420 200 Free Water Flush 260 420 Output: Urine 1800 450 Straight 450 450 Urine, Voided 900 Stool 150 650 Other: # Bowel Movements 600 - Physical Exam Head: Positive for: Atraumatic, Normocephalic Pupils: Positive for: PERRL Extroacular Muscles: Positive for: EOMI Conjunctiva: Positive for: Icteric Ears: Positive for: Normal Mouth: Positive for: Moist Mucous Membranes Nose (External): Positive for: Atraumatic Respiratory/Chest: Positive for: Clear to Auscultation, Good Air Exchange Cardiovascular: Positive for: Regular Rate and Rhythm Abdomen: Positive for: Normal Bowel Sounds. Negative for: Tenderness, Distention Upper Extremity: Positive for: Edema, Swelling (b/l upper extremities swelling and edema, 2+) Lower Extremity: Positive for: Edema Psychiatric: Negative for: Alert - Medications Active Medications: Active Medications Generic Name Dose Route Start Last Admin Trade Name Freq PRN Reason Stop Dose Admin Acetaminophen 650 mg 01/18/19 13:39 Tylenol 650mg/20.3ml Solution Ud NG Q6 PRN for temp>100.4 deg f Acetylcysteine 2 ml 01/17/19 20:00 01/19/19 19:30 Acetylcysteine 20% INH 2 ml RBID JOANNA Administration Albuterol Sulfate 2.5 mg 01/19/19 20:00 01/19/19 19:30 Albuterol 0.083% Inhal Mana (2.5 Mg/3 Ml) Ud INH 2.5 mg RBID JOANNA Administration Carvedilol 6.25 mg 01/06/19 21:00 01/19/19 21:07 Coreg NG Not Given Q12 JOANNA Cilostazol 50 mg 01/06/19 10:30 01/07/19 10:22 Pletal PO Not Given Q12 JOANNA Dextrose 0 ml 01/18/19 17:22 Dextrose 50% Inj IV STAT PRN Hypoglycemia Protocol Protocol Dextrose 0 gm 01/18/19 17:22 Glutose 15 PO ONCE PRN Hypoglycemia Protocol Protocol Folic Acid 1 mg 01/10/19 09:00 01/19/19 08:54 Folic Acid GT 1 mg DAILY JOANNA Administration Glucagon 0 mg 01/18/19 17:22 Glucagen Diagnostic Kit IM STAT PRN Hypoglycemia Protocol Protocol Hydralazine HCl 25 mg 01/12/19 13:00 01/19/19 16:06 Apresoline PO 25 mg TID JOANNA Administration Vancomycin HCl 750 mg/ Sodium 250 mls @ 166.667 mls/hr 01/17/19 16:30 01/19/19 17:21 Chloride IVPB 166.667 mls/hr DAILY@1630 JOANNA Administration Protocol Meropenem 1 gm/ Sodium 100 mls @ 100 mls/hr 01/18/19 17:15 01/20/19 01:01 Chloride IVPB 100 mls/hr Q8 JOANNA Administration Protocol Insulin Human Regular 100 101 mls @ 8.08 mls/hr 01/18/19 17:30 01/20/19 07:00 units/ Sodium Chloride IV 3.96 units/hr .[id number] JOANNA 4 mls/hr Administration Protocol 8 UNITS/HR Lactulose 20 gm 01/13/19 06:15 01/20/19 06:12 Enulose GT 20 gm Q4H JOANNA Administration Levothyroxine Sodium 50 mcg 01/09/19 06:30 01/20/19 06:11 Synthroid PO 50 mcg DAILY@0630 JOANNA Administration Pantoprazole Sodium 40 mg 01/07/19 13:15 01/19/19 08:55 Protonix Susp NG 40 mg DAILY JOANNA Administration Rifaximin 550 mg 01/11/19 17:00 01/19/19 16:07 Xifaxan PO 550 mg BID JOANNA Administration Protocol Thiamine HCl 100 mg 01/10/19 09:00 01/19/19 08:55 Vitamin B1 Tab GT 100 mg DAILY JOANNA Administration - Patient Studies Lab Studies: Microbiology Studies 01/15/19 18:40 Blood Culture - Preliminary Blood NO GROWTH AFTER 4 DAYS 01/15/19 17:45 Blood Culture - Preliminary Blood NO GROWTH AFTER 4 DAYS 01/18/19 17:39 Blood Culture - Preliminary Blood-Venous NO GROWTH AFTER 24 HOURS 01/17/19 18:20 Gram Stain - Final Sputum Sputum Culture - Final Pseudomonas Aeruginosa 01/18/19 12:20 Blood Culture - Preliminary Blood-Venous NO GROWTH AFTER 24 HOURS Lab Studies 01/20/19 01/20/19 01/20/19 Range/Units 06:55 06:07 05:06 WBC (4.8-10.8) K/uL RBC (4.40-5.90) Mil/uL Hgb (12.0-18.0) g/dL Hct (35.0-51.0) % MCV (80.0-94.0) fl MCH (27.0-31.0) pg MCHC (33.0-37.0) g/dL RDW (11.5-14.5) % Plt Count (130-400) K/uL Neutrophils % (Manual) (42-75) % Lymphocytes % (Manual) (20-50) % Monocytes % (Manual) (0-10) % Eosinophils % (Manual) (0-7) % Myelocytes % (0-0) % Platelet Estimate (NORMAL) Large Platelets Anisocytosis (manual) Macrocytosis (manual) Tear Drop Cells pCO2 37 (35-45) mm/Hg pO2 83 (80-100) mm/Hg HCO3 30.3 H (21-28) mmol/L ABG pH 7.52 H (7.35-7.45) ABG Total CO2 31.3 H (22-28) mmol/L ABG O2 Saturation 99.4 H (95-98) % ABG O2 Content 18.3 (15-23) ML/dL ABG Base Excess 7.0 H (-2.0-3.0) mmol/L ABG Hemoglobin 13.6 (11.7-17.4) g/dL ABG Carboxyhemoglobin 2.3 H (0.5-1.5) % POC ABG HHb (Measured) 0.6 (0.0-5.0) % ABG Methemoglobin 1.5 (0.0-3.0) % ABG O2 Capacity 18.4 (16-24) mL/dL [place] Test Yes A-a O2 Difference 85.0 mm/Hg Hgb O2 Saturation 95.6 (95.0-98.0) % Vent Mode A/c Mechanical Rate 10 FiO2 30.0 % Tidal Volume 400 PEEP 5 Sodium (132-148) mmol/l Potassium (3.6-5.0) MMOL/L Chloride (98-107) mmol/L Carbon Dioxide (22-30) mmol/L Anion Gap (10-20) BUN (9-20) mg/dl Creatinine (0.8-1.5) mg/dl Est GFR ( Amer) Est GFR (Non-Af Amer) POC Glucose (mg/dL) 221 H 220 H (65-110) mg/dL Random Glucose (75-110) mg/dL Calcium (8.4-10.2) mg/dL Phosphorus (2.5-4.5) mg/dl Magnesium (1.6-2.3) MG/DL Total Bilirubin (0.2-1.3) mg/dl AST (17-59) U/L ALT (21-72) U/L Alkaline Phosphatase (38-126) U/L Total Protein (6.3-8.2) G/DL Albumin (3.5-5.0) g/dL Globulin (2.2-3.9) gm/dL Albumin/Globulin Ratio (1.0-2.1) 01/20/19 01/20/19 01/20/19 Range/Units 05:01 04:30 04:30 WBC 12.5 H (4.8-10.8) K/uL RBC 3.07 L (4.40-5.90) Mil/uL Hgb 11.9 L (12.0-18.0) g/dL Hct 34.7 L (35.0-51.0) % MCV 113.3 H (80.0-94.0) fl MCH 38.8 H (27.0-31.0) pg MCHC 34.3 (33.0-37.0) g/dL RDW 17.6 H (11.5-14.5) % Plt Count 133 (130-400) K/uL Neutrophils % (Manual) (42-75) % Lymphocytes % (Manual) (20-50) % Monocytes % (Manual) (0-10) % Eosinophils % (Manual) (0-7) % Myelocytes % (0-0) % Platelet Estimate (NORMAL) Large Platelets Anisocytosis (manual) Macrocytosis (manual) Tear Drop Cells pCO2 (35-45) mm/Hg pO2 (80-100) mm/Hg HCO3 (21-28) mmol/L ABG pH (7.35-7.45) ABG Total CO2 (22-28) mmol/L ABG O2 Saturation (95-98) % ABG O2 Content (15-23) ML/dL ABG Base Excess (-2.0-3.0) mmol/L ABG Hemoglobin (11.7-17.4) g/dL ABG Carboxyhemoglobin (0.5-1.5) % POC ABG HHb (Measured) (0.0-5.0) % ABG Methemoglobin (0.0-3.0) % ABG O2 Capacity (16-24) mL/dL [place] Test A-a O2 Difference mm/Hg Hgb O2 Saturation (95.0-98.0) % Vent Mode Mechanical Rate FiO2 % Tidal Volume PEEP Sodium 147 (132-148) mmol/l Potassium 3.9 (3.6-5.0) MMOL/L Chloride 114 H (98-107) mmol/L Carbon Dioxide 30 (22-30) mmol/L Anion Gap 7 L (10-20) BUN 67 H (9-20) mg/dl Creatinine 1.1 (0.8-1.5) mg/dl Est GFR ( Amer) > 60 Est GFR (Non-Af Amer) > 60 POC Glucose (mg/dL) 238 H (65-110) mg/dL Random Glucose 239 H (75-110) mg/dL Calcium 8.6 (8.4-10.2) mg/dL Phosphorus 2.7 (2.5-4.5) mg/dl Magnesium 3.5 H (1.6-2.3) MG/DL Total Bilirubin 1.7 H (0.2-1.3) mg/dl AST 81 H (17-59) U/L ALT 60 (21-72) U/L Alkaline Phosphatase 345 H (38-126) U/L Total Protein 5.8 L (6.3-8.2) G/DL Albumin 2.0 L (3.5-5.0) g/dL Globulin 3.7 (2.2-3.9) gm/dL Albumin/Globulin Ratio 0.5 L (1.0-2.1) 01/20/19 01/20/19 01/20/19 Range/Units 03:57 02:54 01:59 WBC (4.8-10.8) K/uL RBC (4.40-5.90) Mil/uL Hgb (12.0-18.0) g/dL Hct (35.0-51.0) % MCV (80.0-94.0) fl MCH (27.0-31.0) pg MCHC (33.0-37.0) g/dL RDW (11.5-14.5) % Plt Count (130-400) K/uL Neutrophils % (Manual) (42-75) % Lymphocytes % (Manual) (20-50) % Monocytes % (Manual) (0-10) % Eosinophils % (Manual) (0-7) % Myelocytes % (0-0) % Platelet Estimate (NORMAL) Large Platelets Anisocytosis (manual) Macrocytosis (manual) Tear Drop Cells pCO2 (35-45) mm/Hg pO2 (80-100) mm/Hg HCO3 (21-28) mmol/L ABG pH (7.35-7.45) ABG Total CO2 (22-28) mmol/L ABG O2 Saturation (95-98) % ABG O2 Content (15-23) ML/dL ABG Base Excess (-2.0-3.0) mmol/L ABG Hemoglobin (11.7-17.4) g/dL ABG Carboxyhemoglobin (0.5-1.5) % POC ABG HHb (Measured) (0.0-5.0) % ABG Methemoglobin (0.0-3.0) % ABG O2 Capacity (16-24) mL/dL [place] Test A-a O2 Difference mm/Hg Hgb O2 Saturation (95.0-98.0) % Vent Mode Mechanical Rate FiO2 % Tidal Volume PEEP Sodium (132-148) mmol/l Potassium (3.6-5.0) MMOL/L Chloride (98-107) mmol/L Carbon Dioxide (22-30) mmol/L Anion Gap (10-20) BUN (9-20) mg/dl Creatinine (0.8-1.5) mg/dl Est GFR ( Amer) Est GFR (Non-Af Amer) POC Glucose (mg/dL) 244 H 248 H 235 H (65-110) mg/dL Random Glucose (75-110) mg/dL Calcium (8.4-10.2) mg/dL Phosphorus (2.5-4.5) mg/dl Magnesium (1.6-2.3) MG/DL Total Bilirubin (0.2-1.3) mg/dl AST (17-59) U/L ALT (21-72) U/L Alkaline Phosphatase (38-126) U/L Total Protein (6.3-8.2) G/DL Albumin (3.5-5.0) g/dL Globulin (2.2-3.9) gm/dL Albumin/Globulin Ratio (1.0-2.1) 01/20/19 01/20/19 01/19/19 Range/Units 00:57 00:00 23:00 WBC (4.8-10.8) K/uL RBC (4.40-5.90) Mil/uL Hgb (12.0-18.0) g/dL Hct (35.0-51.0) % MCV (80.0-94.0) fl MCH (27.0-31.0) pg MCHC (33.0-37.0) g/dL RDW (11.5-14.5) % Plt Count (130-400) K/uL Neutrophils % (Manual) (42-75) % Lymphocytes % (Manual) (20-50) % Monocytes % (Manual) (0-10) % Eosinophils % (Manual) (0-7) % Myelocytes % (0-0) % Platelet Estimate (NORMAL) Large Platelets Anisocytosis (manual) Macrocytosis (manual) Tear Drop Cells pCO2 (35-45) mm/Hg pO2 (80-100) mm/Hg HCO3 (21-28) mmol/L ABG pH (7.35-7.45) ABG Total CO2 (22-28) mmol/L ABG O2 Saturation (95-98) % ABG O2 Content (15-23) ML/dL ABG Base Excess (-2.0-3.0) mmol/L ABG Hemoglobin (11.7-17.4) g/dL ABG Carboxyhemoglobin (0.5-1.5) % POC ABG HHb (Measured) (0.0-5.0) % ABG Methemoglobin (0.0-3.0) % ABG O2 Capacity (16-24) mL/dL [place] Test A-a O2 Difference mm/Hg Hgb O2 Saturation (95.0-98.0) % Vent Mode Mechanical Rate FiO2 % Tidal Volume PEEP Sodium (132-148) mmol/l Potassium (3.6-5.0) MMOL/L Chloride (98-107) mmol/L Carbon Dioxide (22-30) mmol/L Anion Gap (10-20) BUN (9-20) mg/dl Creatinine (0.8-1.5) mg/dl Est GFR ( Amer) Est GFR (Non-Af Amer) POC Glucose (mg/dL) 232 H 259 H 228 H (65-110) mg/dL Random Glucose (75-110) mg/dL Calcium (8.4-10.2) mg/dL Phosphorus (2.5-4.5) mg/dl Magnesium (1.6-2.3) MG/DL Total Bilirubin (0.2-1.3) mg/dl AST (17-59) U/L ALT (21-72) U/L Alkaline Phosphatase (38-126) U/L Total Protein (6.3-8.2) G/DL Albumin (3.5-5.0) g/dL Globulin (2.2-3.9) gm/dL Albumin/Globulin Ratio (1.0-2.1) 01/19/19 01/19/19 01/19/19 Range/Units 22:01 21:03 19:56 WBC (4.8-10.8) K/uL RBC (4.40-5.90) Mil/uL Hgb (12.0-18.0) g/dL Hct (35.0-51.0) % MCV (80.0-94.0) fl MCH (27.0-31.0) pg MCHC (33.0-37.0) g/dL RDW (11.5-14.5) % Plt Count (130-400) K/uL Neutrophils % (Manual) (42-75) % Lymphocytes % (Manual) (20-50) % Monocytes % (Manual) (0-10) % Eosinophils % (Manual) (0-7) % Myelocytes % (0-0) % Platelet Estimate (NORMAL) Large Platelets Anisocytosis (manual) Macrocytosis (manual) Tear Drop Cells pCO2 (35-45) mm/Hg pO2 (80-100) mm/Hg HCO3 (21-28) mmol/L ABG pH (7.35-7.45) ABG Total CO2 (22-28) mmol/L ABG O2 Saturation (95-98) % ABG O2 Content (15-23) ML/dL ABG Base Excess (-2.0-3.0) mmol/L ABG Hemoglobin (11.7-17.4) g/dL ABG Carboxyhemoglobin (0.5-1.5) % POC ABG HHb (Measured) (0.0-5.0) % ABG Methemoglobin (0.0-3.0) % ABG O2 Capacity (16-24) mL/dL [place] Test A-a O2 Difference mm/Hg Hgb O2 Saturation (95.0-98.0) % Vent Mode Mechanical Rate FiO2 % Tidal Volume PEEP Sodium (132-148) mmol/l Potassium (3.6-5.0) MMOL/L Chloride (98-107) mmol/L Carbon Dioxide (22-30) mmol/L Anion Gap (10-20) BUN (9-20) mg/dl Creatinine (0.8-1.5) mg/dl Est GFR ( Amer) Est GFR (Non-Af Amer) POC Glucose (mg/dL) 212 H 166 H 168 H (65-110) mg/dL Random Glucose (75-110) mg/dL Calcium (8.4-10.2) mg/dL Phosphorus (2.5-4.5) mg/dl Magnesium (1.6-2.3) MG/DL Total Bilirubin (0.2-1.3) mg/dl AST (17-59) U/L ALT (21-72) U/L Alkaline Phosphatase (38-126) U/L Total Protein (6.3-8.2) G/DL Albumin (3.5-5.0) g/dL Globulin (2.2-3.9) gm/dL Albumin/Globulin Ratio (1.0-2.1) 01/19/19 01/19/19 01/19/19 Range/Units 19:05 17:57 17:02 WBC (4.8-10.8) K/uL RBC (4.40-5.90) Mil/uL Hgb (12.0-18.0) g/dL Hct (35.0-51.0) % MCV (80.0-94.0) fl MCH (27.0-31.0) pg MCHC (33.0-37.0) g/dL RDW (11.5-14.5) % Plt Count (130-400) K/uL Neutrophils % (Manual) (42-75) % Lymphocytes % (Manual) (20-50) % Monocytes % (Manual) (0-10) % Eosinophils % (Manual) (0-7) % Myelocytes % (0-0) % Platelet Estimate (NORMAL) Large Platelets Anisocytosis (manual) Macrocytosis (manual) Tear Drop Cells pCO2 (35-45) mm/Hg pO2 (80-100) mm/Hg HCO3 (21-28) mmol/L ABG pH (7.35-7.45) ABG Total CO2 (22-28) mmol/L ABG O2 Saturation (95-98) % ABG O2 Content (15-23) ML/dL ABG Base Excess (-2.0-3.0) mmol/L ABG Hemoglobin (11.7-17.4) g/dL ABG Carboxyhemoglobin (0.5-1.5) % POC ABG HHb (Measured) (0.0-5.0) % ABG Methemoglobin (0.0-3.0) % ABG O2 Capacity (16-24) mL/dL [place] Test A-a O2 Difference mm/Hg Hgb O2 Saturation (95.0-98.0) % Vent Mode Mechanical Rate FiO2 % Tidal Volume PEEP Sodium (132-148) mmol/l Potassium (3.6-5.0) MMOL/L Chloride (98-107) mmol/L Carbon Dioxide (22-30) mmol/L Anion Gap (10-20) BUN (9-20) mg/dl Creatinine (0.8-1.5) mg/dl Est GFR ( Amer) Est GFR (Non-Af Amer) POC Glucose (mg/dL) 209 H 234 H 238 H (65-110) mg/dL Random Glucose (75-110) mg/dL Calcium (8.4-10.2) mg/dL Phosphorus (2.5-4.5) mg/dl Magnesium (1.6-2.3) MG/DL Total Bilirubin (0.2-1.3) mg/dl AST (17-59) U/L ALT (21-72) U/L Alkaline Phosphatase (38-126) U/L Total Protein (6.3-8.2) G/DL Albumin (3.5-5.0) g/dL Globulin (2.2-3.9) gm/dL Albumin/Globulin Ratio (1.0-2.1) 01/19/19 01/19/19 01/19/19 Range/Units 16:00 15:23 14:01 WBC (4.8-10.8) K/uL RBC (4.40-5.90) Mil/uL Hgb (12.0-18.0) g/dL Hct (35.0-51.0) % MCV (80.0-94.0) fl MCH (27.0-31.0) pg MCHC (33.0-37.0) g/dL RDW (11.5-14.5) % Plt Count (130-400) K/uL Neutrophils % (Manual) (42-75) % Lymphocytes % (Manual) (20-50) % Monocytes % (Manual) (0-10) % Eosinophils % (Manual) (0-7) % Myelocytes % (0-0) % Platelet Estimate (NORMAL) Large Platelets Anisocytosis (manual) Macrocytosis (manual) Tear Drop Cells pCO2 (35-45) mm/Hg pO2 (80-100) mm/Hg HCO3 (21-28) mmol/L ABG pH (7.35-7.45) ABG Total CO2 (22-28) mmol/L ABG O2 Saturation (95-98) % ABG O2 Content (15-23) ML/dL ABG Base Excess (-2.0-3.0) mmol/L ABG Hemoglobin (11.7-17.4) g/dL ABG Carboxyhemoglobin (0.5-1.5) % POC ABG HHb (Measured) (0.0-5.0) % ABG Methemoglobin (0.0-3.0) % ABG O2 Capacity (16-24) mL/dL [place] Test A-a O2 Difference mm/Hg Hgb O2 Saturation (95.0-98.0) % Vent Mode Mechanical Rate FiO2 % Tidal Volume PEEP Sodium (132-148) mmol/l Potassium (3.6-5.0) MMOL/L Chloride (98-107) mmol/L Carbon Dioxide (22-30) mmol/L Anion Gap (10-20) BUN (9-20) mg/dl Creatinine (0.8-1.5) mg/dl Est GFR ( Amer) Est GFR (Non-Af Amer) POC Glucose (mg/dL) 225 H 223 H 203 H (65-110) mg/dL Random Glucose (75-110) mg/dL Calcium (8.4-10.2) mg/dL Phosphorus (2.5-4.5) mg/dl Magnesium (1.6-2.3) MG/DL Total Bilirubin (0.2-1.3) mg/dl AST (17-59) U/L ALT (21-72) U/L Alkaline Phosphatase (38-126) U/L Total Protein (6.3-8.2) G/DL Albumin (3.5-5.0) g/dL Globulin (2.2-3.9) gm/dL Albumin/Globulin Ratio (1.0-2.1) 01/19/19 01/19/19 01/19/19 Range/Units 12:18 11:07 10:10 WBC (4.8-10.8) K/uL RBC (4.40-5.90) Mil/uL Hgb (12.0-18.0) g/dL Hct (35.0-51.0) % MCV (80.0-94.0) fl MCH (27.0-31.0) pg MCHC (33.0-37.0) g/dL RDW (11.5-14.5) % Plt Count (130-400) K/uL Neutrophils % (Manual) (42-75) % Lymphocytes % (Manual) (20-50) % Monocytes % (Manual) (0-10) % Eosinophils % (Manual) (0-7) % Myelocytes % (0-0) % Platelet Estimate (NORMAL) Large Platelets Anisocytosis (manual) Macrocytosis (manual) Tear Drop Cells pCO2 (35-45) mm/Hg pO2 (80-100) mm/Hg HCO3 (21-28) mmol/L ABG pH (7.35-7.45) ABG Total CO2 (22-28) mmol/L ABG O2 Saturation (95-98) % ABG O2 Content (15-23) ML/dL ABG Base Excess (-2.0-3.0) mmol/L ABG Hemoglobin (11.7-17.4) g/dL ABG Carboxyhemoglobin (0.5-1.5) % POC ABG HHb (Measured) (0.0-5.0) % ABG Methemoglobin (0.0-3.0) % ABG O2 Capacity (16-24) mL/dL [place] Test A-a O2 Difference mm/Hg Hgb O2 Saturation (95.0-98.0) % Vent Mode Mechanical Rate FiO2 % Tidal Volume PEEP Sodium (132-148) mmol/l Potassium (3.6-5.0) MMOL/L Chloride (98-107) mmol/L Carbon Dioxide (22-30) mmol/L Anion Gap (10-20) BUN (9-20) mg/dl Creatinine (0.8-1.5) mg/dl Est GFR ( Amer) Est GFR (Non-Af Amer) POC Glucose (mg/dL) 251 H 291 H 281 H (65-110) mg/dL Random Glucose (75-110) mg/dL Calcium (8.4-10.2) mg/dL Phosphorus (2.5-4.5) mg/dl Magnesium (1.6-2.3) MG/DL Total Bilirubin (0.2-1.3) mg/dl AST (17-59) U/L ALT (21-72) U/L Alkaline Phosphatase (38-126) U/L Total Protein (6.3-8.2) G/DL Albumin (3.5-5.0) g/dL Globulin (2.2-3.9) gm/dL Albumin/Globulin Ratio (1.0-2.1) 01/19/19 01/19/19 01/19/19 Range/Units 09:07 08:02 07:16 WBC (4.8-10.8) K/uL RBC (4.40-5.90) Mil/uL Hgb (12.0-18.0) g/dL Hct (35.0-51.0) % MCV (80.0-94.0) fl MCH (27.0-31.0) pg MCHC (33.0-37.0) g/dL RDW (11.5-14.5) % Plt Count (130-400) K/uL Neutrophils % (Manual) (42-75) % Lymphocytes % (Manual) (20-50) % Monocytes % (Manual) (0-10) % Eosinophils % (Manual) (0-7) % Myelocytes % (0-0) % Platelet Estimate (NORMAL) Large Platelets Anisocytosis (manual) Macrocytosis (manual) Tear Drop Cells pCO2 (35-45) mm/Hg pO2 (80-100) mm/Hg HCO3 (21-28) mmol/L ABG pH (7.35-7.45) ABG Total CO2 (22-28) mmol/L ABG O2 Saturation (95-98) % ABG O2 Content (15-23) ML/dL ABG Base Excess (-2.0-3.0) mmol/L ABG Hemoglobin (11.7-17.4) g/dL ABG Carboxyhemoglobin (0.5-1.5) % POC ABG HHb (Measured) (0.0-5.0) % ABG Methemoglobin (0.0-3.0) % ABG O2 Capacity (16-24) mL/dL [place] Test A-a O2 Difference mm/Hg Hgb O2 Saturation (95.0-98.0) % Vent Mode Mechanical Rate FiO2 % Tidal Volume PEEP Sodium (132-148) mmol/l Potassium (3.6-5.0) MMOL/L Chloride (98-107) mmol/L Carbon Dioxide (22-30) mmol/L Anion Gap (10-20) BUN (9-20) mg/dl Creatinine (0.8-1.5) mg/dl Est GFR ( Amer) Est GFR (Non-Af Amer) POC Glucose (mg/dL) 245 H 186 H 161 H (65-110) mg/dL Random Glucose (75-110) mg/dL Calcium (8.4-10.2) mg/dL Phosphorus (2.5-4.5) mg/dl Magnesium (1.6-2.3) MG/DL Total Bilirubin (0.2-1.3) mg/dl AST (17-59) U/L ALT (21-72) U/L Alkaline Phosphatase (38-126) U/L Total Protein (6.3-8.2) G/DL Albumin (3.5-5.0) g/dL Globulin (2.2-3.9) gm/dL Albumin/Globulin Ratio (1.0-2.1) 01/19/19 Range/Units 04:30 WBC (4.8-10.8) K/uL RBC (4.40-5.90) Mil/uL Hgb (12.0-18.0) g/dL Hct (35.0-51.0) % MCV (80.0-94.0) fl MCH (27.0-31.0) pg MCHC (33.0-37.0) g/dL RDW (11.5-14.5) % Plt Count (130-400) K/uL Neutrophils % (Manual) 81 H (42-75) % Lymphocytes % (Manual) 5 L (20-50) % Monocytes % (Manual) 10 (0-10) % Eosinophils % (Manual) 3 (0-7) % Myelocytes % 1 H (0-0) % Platelet Estimate Normal (NORMAL) Large Platelets Present Anisocytosis (manual) Slight Macrocytosis (manual) Slight Tear Drop Cells Slight pCO2 (35-45) mm/Hg pO2 (80-100) mm/Hg HCO3 (21-28) mmol/L ABG pH (7.35-7.45) ABG Total CO2 (22-28) mmol/L ABG O2 Saturation (95-98) % ABG O2 Content (15-23) ML/dL ABG Base Excess (-2.0-3.0) mmol/L ABG Hemoglobin (11.7-17.4) g/dL ABG Carboxyhemoglobin (0.5-1.5) % POC ABG HHb (Measured) (0.0-5.0) % ABG Methemoglobin (0.0-3.0) % ABG O2 Capacity (16-24) mL/dL [place] Test A-a O2 Difference mm/Hg Hgb O2 Saturation (95.0-98.0) % Vent Mode Mechanical Rate FiO2 % Tidal Volume PEEP Sodium (132-148) mmol/l Potassium (3.6-5.0) MMOL/L Chloride (98-107) mmol/L Carbon Dioxide (22-30) mmol/L Anion Gap (10-20) BUN (9-20) mg/dl Creatinine (0.8-1.5) mg/dl Est GFR ( Amer) Est GFR (Non-Af Amer) POC Glucose (mg/dL) (65-110) mg/dL Random Glucose (75-110) mg/dL Calcium (8.4-10.2) mg/dL Phosphorus (2.5-4.5) mg/dl Magnesium (1.6-2.3) MG/DL Total Bilirubin (0.2-1.3) mg/dl AST (17-59) U/L ALT (21-72) U/L Alkaline Phosphatase (38-126) U/L Total Protein (6.3-8.2) G/DL Albumin (3.5-5.0) g/dL Globulin (2.2-3.9) gm/dL Albumin/Globulin Ratio (1.0-2.1) Laboratory Results - last 24 hr 01/19/19 01/19/19 01/19/19 04:30 07:16 08:02 WBC RBC Hgb Hct MCV MCH MCHC RDW Plt Count Neutrophils % (Manual) 81 H Lymphocytes % (Manual) 5 L Monocytes % (Manual) 10 Eosinophils % (Manual) 3 Myelocytes % 1 H Platelet Estimate Normal Large Platelets Present Anisocytosis (manual) Slight Macrocytosis (manual) Slight Tear Drop Cells Slight pCO2 pO2 HCO3 ABG pH ABG Total CO2 ABG O2 Saturation ABG O2 Content ABG Base Excess ABG Hemoglobin ABG Carboxyhemoglobin POC ABG HHb (Measured) ABG Methemoglobin ABG O2 Capacity [place] Test A-a O2 Difference Hgb O2 Saturation Vent Mode Mechanical Rate FiO2 Tidal Volume PEEP Sodium Potassium Chloride Carbon Dioxide Anion Gap BUN Creatinine Est GFR ( Amer) Est GFR (Non-Af Amer) POC Glucose (mg/dL) 161 H 186 H Random Glucose Calcium Phosphorus Magnesium Total Bilirubin AST ALT Alkaline Phosphatase Total Protein Albumin Globulin Albumin/Globulin Ratio 01/19/19 01/19/19 01/19/19 09:07 10:10 11:07 WBC RBC Hgb Hct MCV MCH MCHC RDW Plt Count Neutrophils % (Manual) Lymphocytes % (Manual) Monocytes % (Manual) Eosinophils % (Manual) Myelocytes % Platelet Estimate Large Platelets Anisocytosis (manual) Macrocytosis (manual) Tear Drop Cells pCO2 pO2 HCO3 ABG pH ABG Total CO2 ABG O2 Saturation ABG O2 Content ABG Base Excess ABG Hemoglobin ABG Carboxyhemoglobin POC ABG HHb (Measured) ABG Methemoglobin ABG O2 Capacity [place] Test A-a O2 Difference Hgb O2 Saturation Vent Mode Mechanical Rate FiO2 Tidal Volume PEEP Sodium Potassium Chloride Carbon Dioxide Anion Gap BUN Creatinine Est GFR ( Amer) Est GFR (Non-Af Amer) POC Glucose (mg/dL) 245 H 281 H 291 H Random Glucose Calcium Phosphorus Magnesium Total Bilirubin AST ALT Alkaline Phosphatase Total Protein Albumin Globulin Albumin/Globulin Ratio 01/19/19 01/19/19 01/19/19 12:18 14:01 15:23 WBC RBC Hgb Hct MCV MCH MCHC RDW Plt Count Neutrophils % (Manual) Lymphocytes % (Manual) Monocytes % (Manual) Eosinophils % (Manual) Myelocytes % Platelet Estimate Large Platelets Anisocytosis (manual) Macrocytosis (manual) Tear Drop Cells pCO2 pO2 HCO3 ABG pH ABG Total CO2 ABG O2 Saturation ABG O2 Content ABG Base Excess ABG Hemoglobin ABG Carboxyhemoglobin POC ABG HHb (Measured) ABG Methemoglobin ABG O2 Capacity [place] Test A-a O2 Difference Hgb O2 Saturation Vent Mode Mechanical Rate FiO2 Tidal Volume PEEP Sodium Potassium Chloride Carbon Dioxide Anion Gap BUN Creatinine Est GFR ( Amer) Est GFR (Non-Af Amer) POC Glucose (mg/dL) 251 H 203 H 223 H Random Glucose Calcium Phosphorus Magnesium Total Bilirubin AST ALT Alkaline Phosphatase Total Protein Albumin Globulin Albumin/Globulin Ratio 01/19/19 01/19/19 01/19/19 16:00 17:02 17:57 WBC RBC Hgb Hct MCV MCH MCHC RDW Plt Count Neutrophils % (Manual) Lymphocytes % (Manual) Monocytes % (Manual) Eosinophils % (Manual) Myelocytes % Platelet Estimate Large Platelets Anisocytosis (manual) Macrocytosis (manual) Tear Drop Cells pCO2 pO2 HCO3 ABG pH ABG Total CO2 ABG O2 Saturation ABG O2 Content ABG Base Excess ABG Hemoglobin ABG Carboxyhemoglobin POC ABG HHb (Measured) ABG Methemoglobin ABG O2 Capacity [place] Test A-a O2 Difference Hgb O2 Saturation Vent Mode Mechanical Rate FiO2 Tidal Volume PEEP Sodium Potassium Chloride Carbon Dioxide Anion Gap BUN Creatinine Est GFR ( Amer) Est GFR (Non-Af Amer) POC Glucose (mg/dL) 225 H 238 H 234 H Random Glucose Calcium Phosphorus Magnesium Total Bilirubin AST ALT Alkaline Phosphatase Total Protein Albumin Globulin Albumin/Globulin Ratio 01/19/19 01/19/19 01/19/19 19:05 19:56 21:03 WBC RBC Hgb Hct MCV MCH MCHC RDW Plt Count Neutrophils % (Manual) Lymphocytes % (Manual) Monocytes % (Manual) Eosinophils % (Manual) Myelocytes % Platelet Estimate Large Platelets Anisocytosis (manual) Macrocytosis (manual) Tear Drop Cells pCO2 pO2 HCO3 ABG pH ABG Total CO2 ABG O2 Saturation ABG O2 Content ABG Base Excess ABG Hemoglobin ABG Carboxyhemoglobin POC ABG HHb (Measured) ABG Methemoglobin ABG O2 Capacity [place] Test A-a O2 Difference Hgb O2 Saturation Vent Mode Mechanical Rate FiO2 Tidal Volume PEEP Sodium Potassium Chloride Carbon Dioxide Anion Gap BUN Creatinine Est GFR ( Amer) Est GFR (Non-Af Amer) POC Glucose (mg/dL) 209 H 168 H 166 H Random Glucose Calcium Phosphorus Magnesium Total Bilirubin AST ALT Alkaline Phosphatase Total Protein Albumin Globulin Albumin/Globulin Ratio 01/19/19 01/19/19 01/20/19 22:01 23:00 00:00 WBC RBC Hgb Hct MCV MCH MCHC RDW Plt Count Neutrophils % (Manual) Lymphocytes % (Manual) Monocytes % (Manual) Eosinophils % (Manual) Myelocytes % Platelet Estimate Large Platelets Anisocytosis (manual) Macrocytosis (manual) Tear Drop Cells pCO2 pO2 HCO3 ABG pH ABG Total CO2 ABG O2 Saturation ABG O2 Content ABG Base Excess ABG Hemoglobin ABG Carboxyhemoglobin POC ABG HHb (Measured) ABG Methemoglobin ABG O2 Capacity [place] Test A-a O2 Difference Hgb O2 Saturation Vent Mode Mechanical Rate FiO2 Tidal Volume PEEP Sodium Potassium Chloride Carbon Dioxide Anion Gap BUN Creatinine Est GFR ( Amer) Est GFR (Non-Af Amer) POC Glucose (mg/dL) 212 H 228 H 259 H Random Glucose Calcium Phosphorus Magnesium Total Bilirubin AST ALT Alkaline Phosphatase Total Protein Albumin Globulin Albumin/Globulin Ratio 01/20/19 01/20/19 01/20/19 00:57 01:59 02:54 WBC RBC Hgb Hct MCV MCH MCHC RDW Plt Count Neutrophils % (Manual) Lymphocytes % (Manual) Monocytes % (Manual) Eosinophils % (Manual) Myelocytes % Platelet Estimate Large Platelets Anisocytosis (manual) Macrocytosis (manual) Tear Drop Cells pCO2 pO2 HCO3 ABG pH ABG Total CO2 ABG O2 Saturation ABG O2 Content ABG Base Excess ABG Hemoglobin ABG Carboxyhemoglobin POC ABG HHb (Measured) ABG Methemoglobin ABG O2 Capacity [place] Test A-a O2 Difference Hgb O2 Saturation Vent Mode Mechanical Rate FiO2 Tidal Volume PEEP Sodium Potassium Chloride Carbon Dioxide Anion Gap BUN Creatinine Est GFR ( Amer) Est GFR (Non-Af Amer) POC Glucose (mg/dL) 232 H 235 H 248 H Random Glucose Calcium Phosphorus Magnesium Total Bilirubin AST ALT Alkaline Phosphatase Total Protein Albumin Globulin Albumin/Globulin Ratio 01/20/19 01/20/19 01/20/19 03:57 04:30 04:30 WBC 12.5 H RBC 3.07 L Hgb 11.9 L Hct 34.7 L MCV 113.3 H MCH 38.8 H MCHC 34.3 RDW 17.6 H Plt Count 133 Neutrophils % (Manual) Lymphocytes % (Manual) Monocytes % (Manual) Eosinophils % (Manual) Myelocytes % Platelet Estimate Large Platelets Anisocytosis (manual) Macrocytosis (manual) Tear Drop Cells pCO2 pO2 HCO3 ABG pH ABG Total CO2 ABG O2 Saturation ABG O2 Content ABG Base Excess ABG Hemoglobin ABG Carboxyhemoglobin POC ABG HHb (Measured) ABG Methemoglobin ABG O2 Capacity [place] Test A-a O2 Difference Hgb O2 Saturation Vent Mode Mechanical Rate FiO2 Tidal Volume PEEP Sodium 147 Potassium 3.9 Chloride 114 H Carbon Dioxide 30 Anion Gap 7 L BUN 67 H Creatinine 1.1 Est GFR ( Amer) > 60 Est GFR (Non-Af Amer) > 60 POC Glucose (mg/dL) 244 H Random Glucose 239 H Calcium 8.6 Phosphorus 2.7 Magnesium 3.5 H Total Bilirubin 1.7 H AST 81 H ALT 60 Alkaline Phosphatase 345 H Total Protein 5.8 L Albumin 2.0 L Globulin 3.7 Albumin/Globulin Ratio 0.5 L 01/20/19 01/20/19 01/20/19 05:01 05:06 06:07 WBC RBC Hgb Hct MCV MCH MCHC RDW Plt Count Neutrophils % (Manual) Lymphocytes % (Manual) Monocytes % (Manual) Eosinophils % (Manual) Myelocytes % Platelet Estimate Large Platelets Anisocytosis (manual) Macrocytosis (manual) Tear Drop Cells pCO2 37 pO2 83 HCO3 30.3 H ABG pH 7.52 H ABG Total CO2 31.3 H ABG O2 Saturation 99.4 H ABG O2 Content 18.3 ABG Base Excess 7.0 H ABG Hemoglobin 13.6 ABG Carboxyhemoglobin 2.3 H POC ABG HHb (Measured) 0.6 ABG Methemoglobin 1.5 ABG O2 Capacity 18.4 [place] Test Yes A-a O2 Difference 85.0 Hgb O2 Saturation 95.6 Vent Mode A/c Mechanical Rate 10 FiO2 30.0 Tidal Volume 400 PEEP 5 Sodium Potassium Chloride Carbon Dioxide Anion Gap BUN Creatinine Est GFR ( Amer) Est GFR (Non-Af Amer) POC Glucose (mg/dL) 238 H 220 H Random Glucose Calcium Phosphorus Magnesium Total Bilirubin AST ALT Alkaline Phosphatase Total Protein Albumin Globulin Albumin/Globulin Ratio 01/20/19 06:55 WBC RBC Hgb Hct MCV MCH MCHC RDW Plt Count Neutrophils % (Manual) Lymphocytes % (Manual) Monocytes % (Manual) Eosinophils % (Manual) Myelocytes % Platelet Estimate Large Platelets Anisocytosis (manual) Macrocytosis (manual) Tear Drop Cells pCO2 pO2 HCO3 ABG pH ABG Total CO2 ABG O2 Saturation ABG O2 Content ABG Base Excess ABG Hemoglobin ABG Carboxyhemoglobin POC ABG HHb (Measured) ABG Methemoglobin ABG O2 Capacity [place] Test A-a O2 Difference Hgb O2 Saturation Vent Mode Mechanical Rate FiO2 Tidal Volume PEEP Sodium Potassium Chloride Carbon Dioxide Anion Gap BUN Creatinine Est GFR ( Amer) Est GFR (Non-Af Amer) POC Glucose (mg/dL) 221 H Random Glucose Calcium Phosphorus Magnesium Total Bilirubin AST ALT Alkaline Phosphatase Total Protein Albumin Globulin Albumin/Globulin Ratio Radiology Impressions: Radiology Impressions Chest X-Ray 01/19/19 06:00 IMPRESSION: Trace medial basilar atelectasis or infiltrate noted with remaining lung reid clear. No pulmonary vascular congestion. Fingerstick Blood Sugar Results: 221 Assessment/Plan - Assessment and Plan (Free Text) Assessment: A/P Respiratory failure, pneumonia, altered mental status, colitis, hepatic encephalopathy, thrombocytopenia, DM, UTI - Ventilatory support - Weaning as tolerated - Continue meds - Pulmonary toilets - Follow up labs critical care 35 min
[2019-01-20] MEDS: Acetylcysteine 20% Inhal Soln (4ml) INH SCH ×2 (07:54→19:04)
[2019-01-20] MEDS: Albuterol 0.083% Inhal Sol (2.5 mg/3 mL) UD INH SCH ×2 (07:54→19:04)
[2019-01-20] MEDS: Pantoprazole 40 mg Susp UD NG SCH (08:08)
--- NOTE | 2019-01-20 08:21 | RAD ---
Date of service: 01/20/2019 HISTORY: vented COMPARISON: Portable chest 01/19/2019. TECHNIQUE: 1 view obtained. FINDINGS: LUNGS: Stable endotracheal and orogastric tube deployment. Persistent medial basilar patchy opacity potentially slightly increased. Left basilar patchy opacity now identified by the retrocardiac space potentially reflecting atelectasis. PLEURA: No significant pleural effusion identified, no pneumothorax apparent. CARDIOVASCULAR: No aortic atherosclerotic calcification present. Normal cardiac size. No pulmonary vascular congestion. OSSEOUS STRUCTURES: No significant abnormalities. VISUALIZED UPPER ABDOMEN: Normal. OTHER FINDINGS: None. IMPRESSION: Mild increase in limited medial basilar patchy opacity at the right with probable interval atelectasis developing at the retrocardiac left base. No pulmonary vascular congestion.
[2019-01-20 08:42] LABS: ABG ALLEN TEST YES; ARTERIAL BLOOD GAS HCO3 30.8 mmol/L (21-28); ARTERIAL BLOOD GAS HEMOGLOBIN 11.5 g/dL (11.7-17.4); ARTERIAL BLOOD GAS O2 CAPACITY 15.8 mL/dL (16-24); ARTERIAL BLOOD GAS O2 CONTENT 15.6 ML/dL (15-23); ARTERIAL BLOOD GAS PCO2 38 mm/Hg (35-45); ARTERIAL BLOOD GAS PH 7.52 (7.35-7.45); ARTERIAL BLOOD GAS PO2 83 mm/Hg (80-100); ARTERIAL BLOOD GAS TCO2 32.2 mmol/L (22-28)
[2019-01-20] MEDS ORDERED: Chlorhexidine Gluconate 1 APPL/PKT TP ONE (10:12)
--- NOTE | 2019-01-20 12:08 | CP.PCM.PN ---
Subjective - Date & Time of Evaluation Date of Evaluation: 01/20/19 Time of Evaluation: 12:07 - Subjective Subjective: Nephrology Consultation Note Assessment: stable Acute Kidney Injury (N17.9) improving hyponatremia improved hypermagnesemia Acute respi failure, hepatic enceph, DM obesity Plan No acute need for renal replacement therapy at this time. Hypertension control with meds as ordered. Maintain hemodynamics stable. Avoid hypotension. Patient not on ACEI/ARB due to recent NIRAJ Monitor Input/Output, daily weights and renal function with basic metabolic compliance monitor Mag level avoid mag based laxatives/antacids Dose meds/antibiotics for improved GFR. Avoid fleets enema/magnesium based laxatives. Avoid nephrotoxins/NSAIDs Glycemic control Further work up for as per primary team Thanks for allowing me to participate in care of your patient. Will follow patient with you. Please call if any Qs. d/w team and family Dr Binu Worley Office: [phone] Subjective: Noted events overnight. Patients extubated but not much communicative still. Physical Examination: General Appearance: extubated in no acute respiratory distress Vitals reviewed and noted as below Head; Atraumatic, normocephalic Neck; supple no lymphadenopathy, no thyromegaly or bruit Lungs: Normal respiratory rate/effort. Breath sounds bilateral equal and few basal rale Heart: Normal rate. s1s2 normal. No rub or gallop. Extremities:1-2+ edema. No varicose veins Neurological: Patient is awake Skin: Warm and dry. Normal turgor. No rash. Palpitation: Normal elasticity for age Abdomen: Abdomen is soft. Bowel sounds +. There is no abdominal tenderness, no guarding/rigidity no organomegaly Psych: unable MSK: no joint tenderness or swelling. Digits and nails normal, no deformity : kidney or bladder not palpable Labs/imaging reviewed. Past medical history, past surgical history, family history, social history, allergy reviewed and noted as below Family hx: no hx of CKD. Rest non-contributory Objective - Vital Signs/Intake and Output Vital Signs (last 24 hours): Temp Pulse Resp BP Pulse Ox 98.8 F 83 24 107/49 L 99 01/20/19 11:00 01/20/19 11:00 01/20/19 11:00 01/20/19 11:00 01/20/19 11:00 Intake and Output: 01/20/19 01/20/19 06:59 18:59 Intake Total 1146 309 Output Total 2150 Balance -1004 309 - Medications Medications: Current Medications Acetaminophen (Tylenol 650mg/20.3ml Solution Ud) 650 mg NG Q6 PRN PRN Reason: for temp>100.4 deg f Acetylcysteine (Acetylcysteine 20%) 2 ml INH RBID JOANNA Last Admin: 01/20/19 07:54 Dose: 2 ml Albuterol Sulfate (Albuterol 0.083% Inhal Mana (2.5 Mg/3 Ml) Ud) 2.5 mg INH RBID JOANNA Last Admin: 01/20/19 07:54 Dose: 2.5 mg Carvedilol (Coreg) 6.25 mg NG Q12 [facility] Last Admin: 01/20/19 08:10 Dose: 6.25 mg Cilostazol (Pletal) 50 mg PO Q12 [facility] Last Admin: 01/07/19 10:22 Dose: Not Given Dextrose (Dextrose 50% Inj) 0 ml IV STAT PRN; Protocol PRN Reason: Hypoglycemia Protocol Dextrose (Glutose 15) 0 gm PO ONCE PRN; Protocol PRN Reason: Hypoglycemia Protocol Folic Acid (Folic Acid) 1 mg GT DAILY [facility] Last Admin: 01/20/19 08:28 Dose: 1 mg Glucagon (Glucagen Diagnostic Kit) 0 mg IM STAT PRN; Protocol PRN Reason: Hypoglycemia Protocol Hydralazine HCl (Apresoline) 25 mg PO TID [facility] Last Admin: 01/20/19 08:08 Dose: 25 mg Vancomycin HCl 750 mg/ Sodium (Chloride) 250 mls @ 166.667 mls/hr IVPB DAILY@1630 [facility]; Protocol Last Admin: 01/19/19 17:21 Dose: 166.667 mls/hr Meropenem 1 gm/ Sodium (Chloride) 100 mls @ 100 mls/hr IVPB Q8 [facility]; Protocol Last Admin: 01/20/19 08:11 Dose: 100 mls/hr Insulin Human Regular 100 (units/ Sodium Chloride) 101 mls @ 8.08 mls/hr IV .[id number] [facility]; Protocol Last Titration: 01/20/19 10:05 Dose: 1.98 units/hr, 2 mls/hr Lactulose (Enulose) 20 gm GT Q4H [facility] Last Admin: 01/20/19 10:21 Dose: 20 gm Levothyroxine Sodium (Synthroid) 50 mcg PO DAILY@0630 [facility] Last Admin: 01/20/19 06:11 Dose: 50 mcg Pantoprazole Sodium (Protonix Susp) 40 mg NG DAILY [facility] Last Admin: 01/20/19 08:08 Dose: 40 mg Rifaximin (Xifaxan) 550 mg PO BID [facility]; Protocol Last Admin: 01/20/19 08:10 Dose: 550 mg Thiamine HCl (Vitamin B1 Tab) 100 mg GT DAILY [facility] Last Admin: 01/20/19 08:09 Dose: 100 mg - Labs Labs: 01/20/19 04:30 01/20/19 04:30 PT 16.1 Seconds (9.8-13.1) H 01/11/19 05:33 INR 1.4 01/11/19 05:33 APTT 32.9 Seconds (25.6-37.1) 01/11/19 05:33
--- NOTE | 2019-01-20 12:12 | CP.PCM.PN ---
Subjective - Date & Time of Evaluation Date of Evaluation: 01/20/19 Time of Evaluation: 12:12 - Subjective Subjective: ID Note- Pt. seen and examined today in ICU. pt. s/p extubation Today. opens his eyes when his name is called but is lethargic. Objective - Vital Signs/Intake and Output Vital Signs (last 24 hours): Temp Pulse Resp BP Pulse Ox 98.9 F 84 21 116/55 L 98 01/20/19 12:00 01/20/19 12:00 01/20/19 12:00 01/20/19 12:00 01/20/19 12:00 Intake and Output: 01/20/19 01/20/19 06:59 18:59 Intake Total 1146 559 Output Total 2150 300 Balance -1004 259 - Medications Medications: Current Medications Acetaminophen (Tylenol 650mg/20.3ml Solution Ud) 650 mg NG Q6 PRN PRN Reason: for temp>100.4 deg f Acetylcysteine (Acetylcysteine 20%) 2 ml INH RBID [facility] Last Admin: 01/20/19 07:54 Dose: 2 ml Albuterol Sulfate (Albuterol 0.083% Inhal Mana (2.5 Mg/3 Ml) Ud) 2.5 mg INH RBID [facility] Last Admin: 01/20/19 07:54 Dose: 2.5 mg Carvedilol (Coreg) 6.25 mg NG Q12 [facility] Last Admin: 01/20/19 08:10 Dose: 6.25 mg Cilostazol (Pletal) 50 mg PO Q12 [facility] Last Admin: 01/07/19 10:22 Dose: Not Given Dextrose (Dextrose 50% Inj) 0 ml IV STAT PRN; Protocol PRN Reason: Hypoglycemia Protocol Dextrose (Glutose 15) 0 gm PO ONCE PRN; Protocol PRN Reason: Hypoglycemia Protocol Folic Acid (Folic Acid) 1 mg GT DAILY [facility] Last Admin: 01/20/19 08:28 Dose: 1 mg Glucagon (Glucagen Diagnostic Kit) 0 mg IM STAT PRN; Protocol PRN Reason: Hypoglycemia Protocol Hydralazine HCl (Apresoline) 25 mg PO TID [facility] Last Admin: 01/20/19 08:08 Dose: 25 mg Vancomycin HCl 750 mg/ Sodium (Chloride) 250 mls @ 166.667 mls/hr IVPB DAILY@1630 [facility]; Protocol Last Admin: 01/19/19 17:21 Dose: 166.667 mls/hr Meropenem 1 gm/ Sodium (Chloride) 100 mls @ 100 mls/hr IVPB Q8 JOANNA; Protocol Last Admin: 01/20/19 08:11 Dose: 100 mls/hr Insulin Human Regular 100 (units/ Sodium Chloride) 101 mls @ 8.08 mls/hr IV .[id number] [facility]; Protocol Last Titration: 01/20/19 10:05 Dose: 1.98 units/hr, 2 mls/hr Lactulose (Enulose) 20 gm GT Q4H JOANNA Last Admin: 01/20/19 10:21 Dose: 20 gm Levothyroxine Sodium (Synthroid) 50 mcg PO DAILY@0630 [facility] Last Admin: 01/20/19 06:11 Dose: 50 mcg Pantoprazole Sodium (Protonix Susp) 40 mg NG DAILY [facility] Last Admin: 01/20/19 08:08 Dose: 40 mg Rifaximin (Xifaxan) 550 mg PO BID [facility]; Protocol Last Admin: 01/20/19 08:10 Dose: 550 mg Thiamine HCl (Vitamin B1 Tab) 100 mg GT DAILY [facility] Last Admin: 01/20/19 08:09 Dose: 100 mg - Labs Labs: - Additional Findings Additional findings: - Constitutional Additional comments: unresponsive - Neck Exam Neck exam: Positive for: Full Rom - Respiratory Exam Additional comments: breath sounds heard b/l - Cardiovascular Exam Cardiovascular Exam: RRR, +S1, +S2 - GI/Abdominal Exam GI & Abdominal Exam: Normal Bowel Sounds, Soft Additional comments: NT, ND - Extremities Exam Extremities exam: Positive for: normal inspection - Neurological Exam Neurological exam: Additional comments: opens eyes when his name is called Laboratory Results - last 72 hr 01/17/19 01/17/19 01/17/19 15:40 20:22 23:05 WBC RBC Hgb Hct MCV MCH MCHC RDW Plt Count MPV Neut % (Auto) Lymph % (Auto) [place] % (Auto) Eos % (Auto) Baso % (Auto) Neut # (Auto) Lymph # (Auto) [place] # (Auto) Eos # (Auto) Baso # (Auto) Neutrophils % (Manual) Lymphocytes % (Manual) Monocytes % (Manual) Eosinophils % (Manual) Myelocytes % Platelet Estimate Large Platelets Anisocytosis (manual) Macrocytosis (manual) Tear Drop Cells pCO2 pO2 HCO3 ABG pH ABG Total CO2 ABG O2 Saturation ABG O2 Content ABG Base Excess ABG Hemoglobin ABG Carboxyhemoglobin POC ABG HHb (Measured) ABG Methemoglobin ABG O2 Capacity [place] Test A-a O2 Difference Hgb O2 Saturation Vent Mode Mechanical Rate FiO2 Tidal Volume PEEP Pressure Support Sodium Potassium Chloride Carbon Dioxide Anion Gap BUN Creatinine Est GFR ( Amer) Est GFR (Non-Af Amer) POC Glucose (mg/dL) 335 H 350 H 385 H Random Glucose Lactic Acid Calcium Phosphorus Magnesium Total Bilirubin AST ALT Alkaline Phosphatase Ammonia Total Protein Albumin Globulin Albumin/Globulin Ratio Random Vancomycin 01/18/19 01/18/19 01/18/19 04:56 05:05 05:10 WBC 10.0 RBC 3.03 L Hgb 11.8 L Hct 33.9 L MCV 111.8 H MCH 38.9 H MCHC 34.8 RDW 17.8 H Plt Count 116 L MPV 10.7 Neut % (Auto) 73.6 Lymph % (Auto) 7.5 L [place] % (Auto) 17.0 H Eos % (Auto) 1.6 Baso % (Auto) 0.3 Neut # (Auto) 7.4 H Lymph # (Auto) 0.7 L [place] # (Auto) 1.7 H Eos # (Auto) 0.2 Baso # (Auto) 0.0 Neutrophils % (Manual) Lymphocytes % (Manual) Monocytes % (Manual) Eosinophils % (Manual) Myelocytes % Platelet Estimate Large Platelets Anisocytosis (manual) Macrocytosis (manual) Tear Drop Cells pCO2 31 L pO2 106 H HCO3 29.4 H ABG pH 7.56 H ABG Total CO2 28.8 H ABG O2 Saturation 99.7 H ABG O2 Content 16.3 ABG Base Excess 5.8 H ABG Hemoglobin 11.9 ABG Carboxyhemoglobin 1.7 H POC ABG HHb (Measured) 0.3 ABG Methemoglobin 1.3 ABG O2 Capacity 16.3 [place] Test Yes A-a O2 Difference 69.0 Hgb O2 Saturation 96.7 Vent Mode A/c Mechanical Rate 10 FiO2 30.0 Tidal Volume 400 PEEP 5 Pressure Support Sodium Potassium Chloride Carbon Dioxide Anion Gap BUN Creatinine Est GFR ( Amer) Est GFR (Non-Af Amer) POC Glucose (mg/dL) 363 H Random Glucose Lactic Acid Calcium Phosphorus Magnesium Total Bilirubin AST ALT Alkaline Phosphatase Ammonia Total Protein Albumin Globulin Albumin/Globulin Ratio Random Vancomycin 01/18/19 01/18/19 01/18/19 05:10 05:10 05:10 WBC RBC Hgb Hct MCV MCH MCHC RDW Plt Count MPV Neut % (Auto) Lymph % (Auto) [place] % (Auto) Eos % (Auto) Baso % (Auto) Neut # (Auto) Lymph # (Auto) [place] # (Auto) Eos # (Auto) Baso # (Auto) Neutrophils % (Manual) Lymphocytes % (Manual) Monocytes % (Manual) Eosinophils % (Manual) Myelocytes % Platelet Estimate Large Platelets Anisocytosis (manual) Macrocytosis (manual) Tear Drop Cells pCO2 pO2 HCO3 ABG pH ABG Total CO2 ABG O2 Saturation ABG O2 Content ABG Base Excess ABG Hemoglobin ABG Carboxyhemoglobin POC ABG HHb (Measured) ABG Methemoglobin ABG O2 Capacity [place] Test A-a O2 Difference Hgb O2 Saturation Vent Mode Mechanical Rate FiO2 Tidal Volume PEEP Pressure Support Sodium 140 Potassium 4.8 Chloride 106 Carbon Dioxide 28 Anion Gap 11 BUN 85 H Creatinine 1.4 Est GFR ( Amer) > 60 Est GFR (Non-Af Amer) 50 POC Glucose (mg/dL) Random Glucose 398 H Lactic Acid 2.6 H Calcium 8.3 L Phosphorus 2.7 Magnesium 3.9 H Total Bilirubin 1.8 H AST 109 H ALT 65 Alkaline Phosphatase 331 H D Ammonia 119 H D Total Protein 5.6 L Albumin 2.1 L Globulin 3.5 Albumin/Globulin Ratio 0.6 L Random Vancomycin 01/18/19 01/18/19 01/18/19 10:55 12:02 16:59 WBC RBC Hgb Hct MCV MCH MCHC RDW Plt Count MPV Neut % (Auto) Lymph % (Auto) [place] % (Auto) Eos % (Auto) Baso % (Auto) Neut # (Auto) Lymph # (Auto) [place] # (Auto) Eos # (Auto) Baso # (Auto) Neutrophils % (Manual) Lymphocytes % (Manual) Monocytes % (Manual) Eosinophils % (Manual) Myelocytes % Platelet Estimate Large Platelets Anisocytosis (manual) Macrocytosis (manual) Tear Drop Cells pCO2 pO2 HCO3 ABG pH ABG Total CO2 ABG O2 Saturation ABG O2 Content ABG Base Excess ABG Hemoglobin ABG Carboxyhemoglobin POC ABG HHb (Measured) ABG Methemoglobin ABG O2 Capacity [place] Test A-a O2 Difference Hgb O2 Saturation Vent Mode Mechanical Rate FiO2 Tidal Volume PEEP Pressure Support Sodium Potassium Chloride Carbon Dioxide Anion Gap BUN Creatinine Est GFR ( Amer) Est GFR (Non-Af Amer) POC Glucose (mg/dL) 389 H 457 H* Random Glucose Lactic Acid Calcium Phosphorus Magnesium Total Bilirubin AST ALT Alkaline Phosphatase Ammonia Total Protein Albumin Globulin Albumin/Globulin Ratio Random Vancomycin 5.8 01/18/19 01/18/19 01/18/19 18:27 19:51 20:54 WBC RBC Hgb Hct MCV MCH MCHC RDW Plt Count MPV Neut % (Auto) Lymph % (Auto) [place] % (Auto) Eos % (Auto) Baso % (Auto) Neut # (Auto) Lymph # (Auto) [place] # (Auto) Eos # (Auto) Baso # (Auto) Neutrophils % (Manual) Lymphocytes % (Manual) Monocytes % (Manual) Eosinophils % (Manual) Myelocytes % Platelet Estimate Large Platelets Anisocytosis (manual) Macrocytosis (manual) Tear Drop Cells pCO2 pO2 HCO3 ABG pH ABG Total CO2 ABG O2 Saturation ABG O2 Content ABG Base Excess ABG Hemoglobin ABG Carboxyhemoglobin POC ABG HHb (Measured) ABG Methemoglobin ABG O2 Capacity [place] Test A-a O2 Difference Hgb O2 Saturation Vent Mode Mechanical Rate FiO2 Tidal Volume PEEP Pressure Support Sodium Potassium Chloride Carbon Dioxide Anion Gap BUN Creatinine Est GFR ( Amer) Est GFR (Non-Af Amer) POC Glucose (mg/dL) 431 H* 403 H* 395 H Random Glucose Lactic Acid Calcium Phosphorus Magnesium Total Bilirubin AST ALT Alkaline Phosphatase Ammonia Total Protein Albumin Globulin Albumin/Globulin Ratio Random Vancomycin 01/18/19 01/18/19 01/18/19 21:50 22:50 23:53 WBC RBC Hgb Hct MCV MCH MCHC RDW Plt Count MPV Neut % (Auto) Lymph % (Auto) [place] % (Auto) Eos % (Auto) Baso % (Auto) Neut # (Auto) Lymph # (Auto) [place] # (Auto) Eos # (Auto) Baso # (Auto) Neutrophils % (Manual) Lymphocytes % (Manual) Monocytes % (Manual) Eosinophils % (Manual) Myelocytes % Platelet Estimate Large Platelets Anisocytosis (manual) Macrocytosis (manual) Tear Drop Cells pCO2 pO2 HCO3 ABG pH ABG Total CO2 ABG O2 Saturation ABG O2 Content ABG Base Excess ABG Hemoglobin ABG Carboxyhemoglobin POC ABG HHb (Measured) ABG Methemoglobin ABG O2 Capacity [place] Test A-a O2 Difference Hgb O2 Saturation Vent Mode Mechanical Rate FiO2 Tidal Volume PEEP Pressure Support Sodium Potassium Chloride Carbon Dioxide Anion Gap BUN Creatinine Est GFR ( Amer) Est GFR (Non-Af Amer) POC Glucose (mg/dL) 357 H 361 H 310 H Random Glucose Lactic Acid Calcium Phosphorus Magnesium Total Bilirubin AST ALT Alkaline Phosphatase Ammonia Total Protein Albumin Globulin Albumin/Globulin Ratio Random Vancomycin 01/19/19 01/19/19 01/19/19 00:56 02:00 02:57 WBC RBC Hgb Hct MCV MCH MCHC RDW Plt Count MPV Neut % (Auto) Lymph % (Auto) [place] % (Auto) Eos % (Auto) Baso % (Auto) Neut # (Auto) Lymph # (Auto) [place] # (Auto) Eos # (Auto) Baso # (Auto) Neutrophils % (Manual) Lymphocytes % (Manual) Monocytes % (Manual) Eosinophils % (Manual) Myelocytes % Platelet Estimate Large Platelets Anisocytosis (manual) Macrocytosis (manual) Tear Drop Cells pCO2 pO2 HCO3 ABG pH ABG Total CO2 ABG O2 Saturation ABG O2 Content ABG Base Excess ABG Hemoglobin ABG Carboxyhemoglobin POC ABG HHb (Measured) ABG Methemoglobin ABG O2 Capacity [place] Test A-a O2 Difference Hgb O2 Saturation Vent Mode Mechanical Rate FiO2 Tidal Volume PEEP Pressure Support Sodium Potassium Chloride Carbon Dioxide Anion Gap BUN Creatinine Est GFR ( Amer) Est GFR (Non-Af Amer) POC Glucose (mg/dL) 291 H 276 H 271 H Random Glucose Lactic Acid Calcium Phosphorus Magnesium Total Bilirubin AST ALT Alkaline Phosphatase Ammonia Total Protein Albumin Globulin Albumin/Globulin Ratio Random Vancomycin 01/19/19 01/19/19 01/19/19 03:58 04:04 04:30 WBC 11.9 H RBC 3.22 L Hgb 12.3 Hct 36.3 MCV 112.5 H MCH 38.1 H MCHC 33.8 RDW 18.0 H Plt Count 134 MPV 10.1 Neut % (Auto) 79.4 H Lymph % (Auto) 5.4 L [place] % (Auto) 12.7 H Eos % (Auto) 2.3 Baso % (Auto) 0.2 Neut # (Auto) 9.5 H Lymph # (Auto) 0.6 L [place] # (Auto) 1.5 H Eos # (Auto) 0.3 Baso # (Auto) 0.0 Neutrophils % (Manual) 81 H Lymphocytes % (Manual) 5 L Monocytes % (Manual) 10 Eosinophils % (Manual) 3 Myelocytes % 1 H Platelet Estimate Normal Large Platelets Present Anisocytosis (manual) Slight Macrocytosis (manual) Slight Tear Drop Cells Slight pCO2 35 pO2 85 HCO3 29.9 H ABG pH 7.53 H ABG Total CO2 30.3 H ABG O2 Saturation 98.8 H ABG O2 Content 16.9 ABG Base Excess 6.4 H ABG Hemoglobin 12.6 ABG Carboxyhemoglobin 2.0 H POC ABG HHb (Measured) 1.2 ABG Methemoglobin 1.8 ABG O2 Capacity 17.1 [place] Test Yes A-a O2 Difference 85.0 Hgb O2 Saturation 95.0 Vent Mode A/c Mechanical Rate 10 FiO2 30.0 Tidal Volume 400 PEEP 5 Pressure Support Sodium Potassium Chloride Carbon Dioxide Anion Gap BUN Creatinine Est GFR ( Amer) Est GFR (Non-Af Amer) POC Glucose (mg/dL) 276 H Random Glucose Lactic Acid Calcium Phosphorus Magnesium Total Bilirubin AST ALT Alkaline Phosphatase Ammonia Total Protein Albumin Globulin Albumin/Globulin Ratio Random Vancomycin 01/19/19 01/19/19 01/19/19 04:30 04:30 04:30 WBC RBC Hgb Hct MCV MCH MCHC RDW Plt Count MPV Neut % (Auto) Lymph % (Auto) [place] % (Auto) Eos % (Auto) Baso % (Auto) Neut # (Auto) Lymph # (Auto) [place] # (Auto) Eos # (Auto) Baso # (Auto) Neutrophils % (Manual) Lymphocytes % (Manual) Monocytes % (Manual) Eosinophils % (Manual) Myelocytes % Platelet Estimate Large Platelets Anisocytosis (manual) Macrocytosis (manual) Tear Drop Cells pCO2 pO2 HCO3 ABG pH ABG Total CO2 ABG O2 Saturation ABG O2 Content ABG Base Excess ABG Hemoglobin ABG Carboxyhemoglobin POC ABG HHb (Measured) ABG Methemoglobin ABG O2 Capacity [place] Test A-a O2 Difference Hgb O2 Saturation Vent Mode Mechanical Rate FiO2 Tidal Volume PEEP Pressure Support Sodium 144 Potassium 4.3 Chloride 112 H Carbon Dioxide 30 Anion Gap 6 L BUN 77 H Creatinine 1.4 Est GFR ( Amer) > 60 Est GFR (Non-Af Amer) 50 POC Glucose (mg/dL) Random Glucose 219 H Lactic Acid 1.2 Calcium 8.5 Phosphorus 2.8 Magnesium 3.9 H Total Bilirubin 1.8 H AST 94 H ALT 64 Alkaline Phosphatase 388 H Ammonia 60 H D Total Protein 6.0 L Albumin 2.2 L Globulin 3.8 Albumin/Globulin Ratio 0.6 L Random Vancomycin 01/19/19 01/19/19 01/19/19 04:58 05:26 06:14 WBC RBC Hgb Hct MCV MCH MCHC RDW Plt Count MPV Neut % (Auto) Lymph % (Auto) [place] % (Auto) Eos % (Auto) Baso % (Auto) Neut # (Auto) Lymph # (Auto) [place] # (Auto) Eos # (Auto) Baso # (Auto) Neutrophils % (Manual) Lymphocytes % (Manual) Monocytes % (Manual) Eosinophils % (Manual) Myelocytes % Platelet Estimate Large Platelets Anisocytosis (manual) Macrocytosis (manual) Tear Drop Cells pCO2 pO2 HCO3 ABG pH ABG Total CO2 ABG O2 Saturation ABG O2 Content ABG Base Excess ABG Hemoglobin ABG Carboxyhemoglobin POC ABG HHb (Measured) ABG Methemoglobin ABG O2 Capacity [place] Test A-a O2 Difference Hgb O2 Saturation Vent Mode Mechanical Rate FiO2 Tidal Volume PEEP Pressure Support Sodium Potassium Chloride Carbon Dioxide Anion Gap BUN Creatinine Est GFR ( Amer) Est GFR (Non-Af Amer) POC Glucose (mg/dL) 225 H 221 H 180 H Random Glucose Lactic Acid Calcium Phosphorus Magnesium Total Bilirubin AST ALT Alkaline Phosphatase Ammonia Total Protein Albumin Globulin Albumin/Globulin Ratio Random Vancomycin 01/19/19 01/19/19 01/19/19 07:16 08:02 09:07 WBC RBC Hgb Hct MCV MCH MCHC RDW Plt Count MPV Neut % (Auto) Lymph % (Auto) [place] % (Auto) Eos % (Auto) Baso % (Auto) Neut # (Auto) Lymph # (Auto) [place] # (Auto) Eos # (Auto) Baso # (Auto) Neutrophils % (Manual) Lymphocytes % (Manual) Monocytes % (Manual) Eosinophils % (Manual) Myelocytes % Platelet Estimate Large Platelets Anisocytosis (manual) Macrocytosis (manual) Tear Drop Cells pCO2 pO2 HCO3 ABG pH ABG Total CO2 ABG O2 Saturation ABG O2 Content ABG Base Excess ABG Hemoglobin ABG Carboxyhemoglobin POC ABG HHb (Measured) ABG Methemoglobin ABG O2 Capacity [place] Test A-a O2 Difference Hgb O2 Saturation Vent Mode Mechanical Rate FiO2 Tidal Volume PEEP Pressure Support Sodium Potassium Chloride Carbon Dioxide Anion Gap BUN Creatinine Est GFR ( Amer) Est GFR (Non-Af Amer) POC Glucose (mg/dL) 161 H 186 H 245 H Random Glucose Lactic Acid Calcium Phosphorus Magnesium Total Bilirubin AST ALT Alkaline Phosphatase Ammonia Total Protein Albumin Globulin Albumin/Globulin Ratio Random Vancomycin 01/19/19 01/19/19 01/19/19 10:10 11:07 12:18 WBC RBC Hgb Hct MCV MCH MCHC RDW Plt Count MPV Neut % (Auto) Lymph % (Auto) [place] % (Auto) Eos % (Auto) Baso % (Auto) Neut # (Auto) Lymph # (Auto) [place] # (Auto) Eos # (Auto) Baso # (Auto) Neutrophils % (Manual) Lymphocytes % (Manual) Monocytes % (Manual) Eosinophils % (Manual) Myelocytes % Platelet Estimate Large Platelets Anisocytosis (manual) Macrocytosis (manual) Tear Drop Cells pCO2 pO2 HCO3 ABG pH ABG Total CO2 ABG O2 Saturation ABG O2 Content ABG Base Excess ABG Hemoglobin ABG Carboxyhemoglobin POC ABG HHb (Measured) ABG Methemoglobin ABG O2 Capacity [place] Test A-a O2 Difference Hgb O2 Saturation Vent Mode Mechanical Rate FiO2 Tidal Volume PEEP Pressure Support Sodium Potassium Chloride Carbon Dioxide Anion Gap BUN Creatinine Est GFR ( Amer) Est GFR (Non-Af Amer) POC Glucose (mg/dL) 281 H 291 H 251 H Random Glucose Lactic Acid Calcium Phosphorus Magnesium Total Bilirubin AST ALT Alkaline Phosphatase Ammonia Total Protein Albumin Globulin Albumin/Globulin Ratio Random Vancomycin 01/19/19 01/19/19 01/19/19 14:01 15:23 16:00 WBC RBC Hgb Hct MCV MCH MCHC RDW Plt Count MPV Neut % (Auto) Lymph % (Auto) [place] % (Auto) Eos % (Auto) Baso % (Auto) Neut # (Auto) Lymph # (Auto) [place] # (Auto) Eos # (Auto) Baso # (Auto) Neutrophils % (Manual) Lymphocytes % (Manual) Monocytes % (Manual) Eosinophils % (Manual) Myelocytes % Platelet Estimate Large Platelets Anisocytosis (manual) Macrocytosis (manual) Tear Drop Cells pCO2 pO2 HCO3 ABG pH ABG Total CO2 ABG O2 Saturation ABG O2 Content ABG Base Excess ABG Hemoglobin ABG Carboxyhemoglobin POC ABG HHb (Measured) ABG Methemoglobin ABG O2 Capacity [place] Test A-a O2 Difference Hgb O2 Saturation Vent Mode Mechanical Rate FiO2 Tidal Volume PEEP Pressure Support Sodium Potassium Chloride Carbon Dioxide Anion Gap BUN Creatinine Est GFR ( Amer) Est GFR (Non-Af Amer) POC Glucose (mg/dL) 203 H 223 H 225 H Random Glucose Lactic Acid Calcium Phosphorus Magnesium Total Bilirubin AST ALT Alkaline Phosphatase Ammonia Total Protein Albumin Globulin Albumin/Globulin Ratio Random Vancomycin 01/19/19 01/19/19 01/19/19 17:02 17:57 19:05 WBC RBC Hgb Hct MCV MCH MCHC RDW Plt Count MPV Neut % (Auto) Lymph % (Auto) [place] % (Auto) Eos % (Auto) Baso % (Auto) Neut # (Auto) Lymph # (Auto) [place] # (Auto) Eos # (Auto) Baso # (Auto) Neutrophils % (Manual) Lymphocytes % (Manual) Monocytes % (Manual) Eosinophils % (Manual) Myelocytes % Platelet Estimate Large Platelets Anisocytosis (manual) Macrocytosis (manual) Tear Drop Cells pCO2 pO2 HCO3 ABG pH ABG Total CO2 ABG O2 Saturation ABG O2 Content ABG Base Excess ABG Hemoglobin ABG Carboxyhemoglobin POC ABG HHb (Measured) ABG Methemoglobin ABG O2 Capacity [place] Test A-a O2 Difference Hgb O2 Saturation Vent Mode Mechanical Rate FiO2 Tidal Volume PEEP Pressure Support Sodium Potassium Chloride Carbon Dioxide Anion Gap BUN Creatinine Est GFR ( Amer) Est GFR (Non-Af Amer) POC Glucose (mg/dL) 238 H 234 H 209 H Random Glucose Lactic Acid Calcium Phosphorus Magnesium Total Bilirubin AST ALT Alkaline Phosphatase Ammonia Total Protein Albumin Globulin Albumin/Globulin Ratio Random Vancomycin 01/19/19 01/19/19 01/19/19 19:56 21:03 22:01 WBC RBC Hgb Hct MCV MCH MCHC RDW Plt Count MPV Neut % (Auto) Lymph % (Auto) [place] % (Auto) Eos % (Auto) Baso % (Auto) Neut # (Auto) Lymph # (Auto) [place] # (Auto) Eos # (Auto) Baso # (Auto) Neutrophils % (Manual) Lymphocytes % (Manual) Monocytes % (Manual) Eosinophils % (Manual) Myelocytes % Platelet Estimate Large Platelets Anisocytosis (manual) Macrocytosis (manual) Tear Drop Cells pCO2 pO2 HCO3 ABG pH ABG Total CO2 ABG O2 Saturation ABG O2 Content ABG Base Excess ABG Hemoglobin ABG Carboxyhemoglobin POC ABG HHb (Measured) ABG Methemoglobin ABG O2 Capacity [place] Test A-a O2 Difference Hgb O2 Saturation Vent Mode Mechanical Rate FiO2 Tidal Volume PEEP Pressure Support Sodium Potassium Chloride Carbon Dioxide Anion Gap BUN Creatinine Est GFR ( Amer) Est GFR (Non-Af Amer) POC Glucose (mg/dL) 168 H 166 H 212 H Random Glucose Lactic Acid Calcium Phosphorus Magnesium Total Bilirubin AST ALT Alkaline Phosphatase Ammonia Total Protein Albumin Globulin Albumin/Globulin Ratio Random Vancomycin 01/19/19 01/20/19 01/20/19 23:00 00:00 00:57 WBC RBC Hgb Hct MCV MCH MCHC RDW Plt Count MPV Neut % (Auto) Lymph % (Auto) [place] % (Auto) Eos % (Auto) Baso % (Auto) Neut # (Auto) Lymph # (Auto) [place] # (Auto) Eos # (Auto) Baso # (Auto) Neutrophils % (Manual) Lymphocytes % (Manual) Monocytes % (Manual) Eosinophils % (Manual) Myelocytes % Platelet Estimate Large Platelets Anisocytosis (manual) Macrocytosis (manual) Tear Drop Cells pCO2 pO2 HCO3 ABG pH ABG Total CO2 ABG O2 Saturation ABG O2 Content ABG Base Excess ABG Hemoglobin ABG Carboxyhemoglobin POC ABG HHb (Measured) ABG Methemoglobin ABG O2 Capacity [place] Test A-a O2 Difference Hgb O2 Saturation Vent Mode Mechanical Rate FiO2 Tidal Volume PEEP Pressure Support Sodium Potassium Chloride Carbon Dioxide Anion Gap BUN Creatinine Est GFR ( Amer) Est GFR (Non-Af Amer) POC Glucose (mg/dL) 228 H 259 H 232 H Random Glucose Lactic Acid Calcium Phosphorus Magnesium Total Bilirubin AST ALT Alkaline Phosphatase Ammonia Total Protein Albumin Globulin Albumin/Globulin Ratio Random Vancomycin 01/20/19 01/20/19 01/20/19 01:59 02:54 03:57 WBC RBC Hgb Hct MCV MCH MCHC RDW Plt Count MPV Neut % (Auto) Lymph % (Auto) [place] % (Auto) Eos % (Auto) Baso % (Auto) Neut # (Auto) Lymph # (Auto) [place] # (Auto) Eos # (Auto) Baso # (Auto) Neutrophils % (Manual) Lymphocytes % (Manual) Monocytes % (Manual) Eosinophils % (Manual) Myelocytes % Platelet Estimate Large Platelets Anisocytosis (manual) Macrocytosis (manual) Tear Drop Cells pCO2 pO2 HCO3 ABG pH ABG Total CO2 ABG O2 Saturation ABG O2 Content ABG Base Excess ABG Hemoglobin ABG Carboxyhemoglobin POC ABG HHb (Measured) ABG Methemoglobin ABG O2 Capacity [place] Test A-a O2 Difference Hgb O2 Saturation Vent Mode Mechanical Rate FiO2 Tidal Volume PEEP Pressure Support Sodium Potassium Chloride Carbon Dioxide Anion Gap BUN Creatinine Est GFR ( Amer) Est GFR (Non-Af Amer) POC Glucose (mg/dL) 235 H 248 H 244 H Random Glucose Lactic Acid Calcium Phosphorus Magnesium Total Bilirubin AST ALT Alkaline Phosphatase Ammonia Total Protein Albumin Globulin Albumin/Globulin Ratio Random Vancomycin 01/20/19 01/20/19 01/20/19 04:30 04:30 05:01 WBC 12.5 H RBC 3.07 L Hgb 11.9 L Hct 34.7 L MCV 113.3 H MCH 38.8 H MCHC 34.3 RDW 17.6 H Plt Count 133 MPV Neut % (Auto) Lymph % (Auto) [place] % (Auto) Eos % (Auto) Baso % (Auto) Neut # (Auto) Lymph # (Auto) [place] # (Auto) Eos # (Auto) Baso # (Auto) Neutrophils % (Manual) Lymphocytes % (Manual) Monocytes % (Manual) Eosinophils % (Manual) Myelocytes % Platelet Estimate Large Platelets Anisocytosis (manual) Macrocytosis (manual) Tear Drop Cells pCO2 pO2 HCO3 ABG pH ABG Total CO2 ABG O2 Saturation ABG O2 Content ABG Base Excess ABG Hemoglobin ABG Carboxyhemoglobin POC ABG HHb (Measured) ABG Methemoglobin ABG O2 Capacity [place] Test A-a O2 Difference Hgb O2 Saturation Vent Mode Mechanical Rate FiO2 Tidal Volume PEEP Pressure Support Sodium 147 Potassium 3.9 Chloride 114 H Carbon Dioxide 30 Anion Gap 7 L BUN 67 H Creatinine 1.1 Est GFR ( Amer) > 60 Est GFR (Non-Af Amer) > 60 POC Glucose (mg/dL) 238 H Random Glucose 239 H Lactic Acid Calcium 8.6 Phosphorus 2.7 Magnesium 3.5 H Total Bilirubin 1.7 H AST 81 H ALT 60 Alkaline Phosphatase 345 H Ammonia Total Protein 5.8 L Albumin 2.0 L Globulin 3.7 Albumin/Globulin Ratio 0.5 L Random Vancomycin 01/20/19 01/20/19 01/20/19 05:06 06:07 06:55 WBC RBC Hgb Hct MCV MCH MCHC RDW Plt Count MPV Neut % (Auto) Lymph % (Auto) [place] % (Auto) Eos % (Auto) Baso % (Auto) Neut # (Auto) Lymph # (Auto) [place] # (Auto) Eos # (Auto) Baso # (Auto) Neutrophils % (Manual) Lymphocytes % (Manual) Monocytes % (Manual) Eosinophils % (Manual) Myelocytes % Platelet Estimate Large Platelets Anisocytosis (manual) Macrocytosis (manual) Tear Drop Cells pCO2 37 pO2 83 HCO3 30.3 H ABG pH 7.52 H ABG Total CO2 31.3 H ABG O2 Saturation 99.4 H ABG O2 Content 18.3 ABG Base Excess 7.0 H ABG Hemoglobin 13.6 ABG Carboxyhemoglobin 2.3 H POC ABG HHb (Measured) 0.6 ABG Methemoglobin 1.5 ABG O2 Capacity 18.4 [place] Test Yes A-a O2 Difference 85.0 Hgb O2 Saturation 95.6 Vent Mode A/c Mechanical Rate 10 FiO2 30.0 Tidal Volume 400 PEEP 5 Pressure Support Sodium Potassium Chloride Carbon Dioxide Anion Gap BUN Creatinine Est GFR ( Amer) Est GFR (Non-Af Amer) POC Glucose (mg/dL) 220 H 221 H Random Glucose Lactic Acid Calcium Phosphorus Magnesium Total Bilirubin AST ALT Alkaline Phosphatase Ammonia Total Protein Albumin Globulin Albumin/Globulin Ratio Random Vancomycin 01/20/19 01/20/19 01/20/19 08:00 08:31 09:04 WBC RBC Hgb Hct MCV MCH MCHC RDW Plt Count MPV Neut % (Auto) Lymph % (Auto) [place] % (Auto) Eos % (Auto) Baso % (Auto) Neut # (Auto) Lymph # (Auto) [place] # (Auto) Eos # (Auto) Baso # (Auto) Neutrophils % (Manual) Lymphocytes % (Manual) Monocytes % (Manual) Eosinophils % (Manual) Myelocytes % Platelet Estimate Large Platelets Anisocytosis (manual) Macrocytosis (manual) Tear Drop Cells pCO2 38 pO2 83 HCO3 30.8 H ABG pH 7.52 H ABG Total CO2 32.2 H ABG O2 Saturation 99.0 H ABG O2 Content 15.6 ABG Base Excess 7.6 H ABG Hemoglobin 11.5 L ABG Carboxyhemoglobin 1.8 H POC ABG HHb (Measured) 1.0 ABG Methemoglobin 1.3 ABG O2 Capacity 15.8 L [place] Test Yes A-a O2 Difference 83.0 Hgb O2 Saturation 95.8 Vent Mode Cpap+ps Mechanical Rate FiO2 30.0 Tidal Volume PEEP 10 Pressure Support 5 Sodium Potassium Chloride Carbon Dioxide Anion Gap BUN Creatinine Est GFR ( Amer) Est GFR (Non-Af Amer) POC Glucose (mg/dL) 239 H 237 H Random Glucose Lactic Acid Calcium Phosphorus Magnesium Total Bilirubin AST ALT Alkaline Phosphatase Ammonia Total Protein Albumin Globulin Albumin/Globulin Ratio Random Vancomycin 01/20/19 01/20/19 01/20/19 10:01 10:58 12:00 WBC RBC Hgb Hct MCV MCH MCHC RDW Plt Count MPV Neut % (Auto) Lymph % (Auto) [place] % (Auto) Eos % (Auto) Baso % (Auto) Neut # (Auto) Lymph # (Auto) [place] # (Auto) Eos # (Auto) Baso # (Auto) Neutrophils % (Manual) Lymphocytes % (Manual) Monocytes % (Manual) Eosinophils % (Manual) Myelocytes % Platelet Estimate Large Platelets Anisocytosis (manual) Macrocytosis (manual) Tear Drop Cells pCO2 pO2 HCO3 ABG pH ABG Total CO2 ABG O2 Saturation ABG O2 Content ABG Base Excess ABG Hemoglobin ABG Carboxyhemoglobin POC ABG HHb (Measured) ABG Methemoglobin ABG O2 Capacity [place] Test A-a O2 Difference Hgb O2 Saturation Vent Mode Mechanical Rate FiO2 Tidal Volume PEEP Pressure Support Sodium Potassium Chloride Carbon Dioxide Anion Gap BUN Creatinine Est GFR ( Amer) Est GFR (Non-Af Amer) POC Glucose (mg/dL) 178 H 167 H Random Glucose Lactic Acid Calcium Phosphorus Magnesium Total Bilirubin AST ALT Alkaline Phosphatase Ammonia 33 D Total Protein Albumin Globulin Albumin/Globulin Ratio Random Vancomycin 01/20/19 12:04 WBC RBC Hgb Hct MCV MCH MCHC RDW Plt Count MPV Neut % (Auto) Lymph % (Auto) [place] % (Auto) Eos % (Auto) Baso % (Auto) Neut # (Auto) Lymph # (Auto) [place] # (Auto) Eos # (Auto) Baso # (Auto) Neutrophils % (Manual) Lymphocytes % (Manual) Monocytes % (Manual) Eosinophils % (Manual) Myelocytes % Platelet Estimate Large Platelets Anisocytosis (manual) Macrocytosis (manual) Tear Drop Cells pCO2 pO2 HCO3 ABG pH ABG Total CO2 ABG O2 Saturation ABG O2 Content ABG Base Excess ABG Hemoglobin ABG Carboxyhemoglobin POC ABG HHb (Measured) ABG Methemoglobin ABG O2 Capacity [place] Test A-a O2 Difference Hgb O2 Saturation Vent Mode Mechanical Rate FiO2 Tidal Volume PEEP Pressure Support Sodium Potassium Chloride Carbon Dioxide Anion Gap BUN Creatinine Est GFR ( Amer) Est GFR (Non-Af Amer) POC Glucose (mg/dL) 192 H Random Glucose Lactic Acid Calcium Phosphorus Magnesium Total Bilirubin AST ALT Alkaline Phosphatase Ammonia Total Protein Albumin Globulin Albumin/Globulin Ratio Random Vancomycin Microbiology 01/18/19 12:20 Blood-Venous Blood Culture - Preliminary NO GROWTH AFTER 48 HOURS 01/15/19 18:40 Blood Blood Culture - Preliminary NO GROWTH AFTER 4 DAYS 01/15/19 17:45 Blood Blood Culture - Preliminary NO GROWTH AFTER 4 DAYS 01/18/19 17:39 Blood-Venous Blood Culture - Preliminary NO GROWTH AFTER 24 HOURS 01/17/19 18:20 Sputum Gram Stain - Final 01/17/19 18:20 Sputum Sputum Culture - Final Pseudomonas Aeruginosa 01/15/19 07:16 Urine,Howe Urine Culture - Final Beta Hemolytic Strep Group B 01/10/19 21:25 Trachasp Gram Stain - Preliminary 01/10/19 21:25 Trachasp Sputum Culture - Final Klebsiella Oxytoca Pseudomonas Aeruginosa 01/07/19 18:08 Urine,Howe Urine Culture - Final Beta Hemolytic Strep Group B 01/06/19 10:41 Naris MRSA Culture (Admit) - Final MRSA NOT DETECTED Accession No. : [id number] Patient Name / ID : SUSAN ROMERO K / [id number] Exam Date : 01/20/2019 05:03:37 ( Approved ) Study Comment : Sex / Age : M / 69Y Creator : Adrián Joshi MD Dictator : Adrián Joshi MD Visual Stylist : Agricultural Research Director : Adrián Joshi MD Approver2 : Report Date : 01/20/2019 08:16:13 My Comment : Date of service: 01/20/2019 HISTORY: vented COMPARISON: Portable chest 01/19/2019. TECHNIQUE: 1 view obtained. FINDINGS: LUNGS: Stable endotracheal and orogastric tube deployment. Persistent medial basilar patchy opacity potentially slightly increased. Left basilar patchy opacity now identified by the retrocardiac space potentially reflecting atelectasis. PLEURA: No significant pleural effusion identified, no pneumothorax apparent. CARDIOVASCULAR: No aortic atherosclerotic calcification present. Normal cardiac size. No pulmonary vascular congestion. OSSEOUS STRUCTURES: No significant abnormalities. VISUALIZED UPPER ABDOMEN: Normal. OTHER FINDINGS: None. IMPRESSION: Mild increase in limited medial basilar patchy opacity at the right with probable interval atelectasis developing at the retrocardiac left base. No pulmonary vascular congestion. Assessment and Plan (1) Hospital-acquired bacterial pneumonia Status: Acute (2) Acute respiratory failure Status: Acute - Assessment and Plan (Free Text) Assessment: A/P- 69 year old male with h/o ETOH abuse, liver cirrhosis, liver cancer undergoing chemo who was admitted with change in MS . s/p extubation today. HAP/VAP with klebsiella an pseudomonas. afebrile today blood cx- neg x 4 Et tube cx- KLebsilele and pseudomonas not ESBL sputum cx- pseudomonas cx Plan- continue with Meropnem 1 gram IV q8 hours.day #3 continue with IV vancomycin. keep trough <15. monitor aspiration precautions. All imaging and labs and chart notes reviewed. all above d/w patient's family who are at his bedside. Critical care time spent 35 minutes.
[2019-01-21] MEDS: Meropenem 1 GM in Sodium Chloride 0.9% 100 ML IVPB SCH ×3 (01:56→16:09)
[2019-01-21 05:42] LABS: BASO % 0.3 % (0.0-2.0); EOS # 0.2 K/uL (0.0-0.7); EOS % 1.7 % (0.0-4.0); HEMOGLOBIN 11.4 g/dL (12.0-18.0); LYMPH # 0.6 K/uL (1.0-4.3); MEAN CORPUSCULAR HEMOGLOBIN 38.7 pg (27.0-31.0); MEAN CORPUSCULAR HGB CONC 33.8 g/dL (33.0-37.0); MEAN PLATELET VOLUME 10.3 fl (7.2-11.7); MONO # 0.9 K/uL (0.0-0.8); MONO % 10.1 % (0.0-10.0); NEUT # 7.4 K/uL (1.8-7.0); NEUT % 80.9 % (50.0-75.0); NRBC % 0.1 % (0.0-0.0); RBC 2.94 Mil/uL (4.40-5.90); RED CELL DISTRIBUTION WIDTH 17.6 % (11.5-14.5); WHITE BLOOD COUNT 9.1 K/uL (4.8-10.8)
[2019-01-21 06:22] LABS: MEAN CELL VOLUME 114.4 fl (80.0-94.0)
[2019-01-21 06:24] LABS: ALB/GLOB RATIO 0.5 (1.0-2.1); ALT/SGPT 56 U/L (21-72); AST/SGOT 99 U/L (17-59); BLOOD UREA NITROGEN 60 mg/dl (9-20); CALCIUM 8.6 mg/dL (8.4-10.2); GFR NON-AFRICAN AMERICAN > 60
[2019-01-21] MEDS: Levothyroxine 50 MCG TAB PO SCH (06:38)
[2019-01-21] MEDS: Acetylcysteine 20% Inhal Soln (4ml) INH SCH ×2 (08:36→19:14)
[2019-01-21] MEDS: Albuterol 0.083% Inhal Sol (2.5 mg/3 mL) UD INH SCH ×2 (08:36→19:14)
[2019-01-21] MEDS ORDERED: Chlorhexidine Gluconate 1 APPL/PKT TP ONE (09:38)
[2019-01-21] MEDS: Pantoprazole 40 mg Susp UD NG SCH (10:10)
--- NOTE | 2019-01-21 10:34 | CP.PCM.PN ---
Subjective - Date & Time of Evaluation Date of Evaluation: 01/21/19 Time of Evaluation: 10:34 - Subjective Subjective: Patient remain intubated. Patient opening his eyes but no good communication at the present. Family at the bedside. Kidney function improving. Serum sodium going up. Objective - Vital Signs/Intake and Output Vital Signs (last 24 hours): Temp Pulse Resp BP Pulse Ox 98.3 F 82 22 115/54 L 100 01/21/19 08:00 01/21/19 10:00 01/21/19 10:00 01/21/19 10:00 01/21/19 10:00 Intake and Output: 01/21/19 01/21/19 06:59 18:59 Intake Total 1170 532 Output Total 1000 Balance 170 532 - Medications Medications: Current Medications Acetaminophen (Tylenol 650mg/20.3ml Solution Ud) 650 mg NG Q6 PRN PRN Reason: for temp>100.4 deg f Acetylcysteine (Acetylcysteine 20%) 2 ml INH RBID JOANNA Last Admin: 01/21/19 08:36 Dose: 2 ml Albuterol Sulfate (Albuterol 0.083% Inhal Mana (2.5 Mg/3 Ml) Ud) 2.5 mg INH RBID [facility] Last Admin: 01/21/19 08:36 Dose: 2.5 mg Carvedilol (Coreg) 6.25 mg NG Q12 [facility] Last Admin: 01/21/19 08:44 Dose: Not Given Cilostazol (Pletal) 50 mg PO Q12 [facility] Last Admin: 01/07/19 10:22 Dose: Not Given Dextrose (Dextrose 50% Inj) 0 ml IV STAT PRN; Protocol PRN Reason: Hypoglycemia Protocol Dextrose (Glutose 15) 0 gm PO ONCE PRN; Protocol PRN Reason: Hypoglycemia Protocol Folic Acid (Folic Acid) 1 mg GT DAILY [facility] Last Admin: 01/21/19 09:50 Dose: 1 mg Glucagon (Glucagen Diagnostic Kit) 0 mg IM STAT PRN; Protocol PRN Reason: Hypoglycemia Protocol Hydralazine HCl (Apresoline) 25 mg PO TID [facility] Last Admin: 01/21/19 08:43 Dose: Not Given Meropenem 1 gm/ Sodium (Chloride) 100 mls @ 100 mls/hr IVPB Q8 JOANNA; Protocol Last Admin: 01/21/19 10:10 Dose: 100 mls/hr Insulin Human Regular 100 (units/ Sodium Chloride) 101 mls @ 8.08 mls/hr IV .[id number] [facility]; Protocol Last Admin: 01/21/19 08:49 Dose: 4 units/hr, 4.04 mls/hr Lactulose (Enulose) 20 gm GT Q4H [facility] Last Admin: 01/21/19 09:50 Dose: 20 gm Levothyroxine Sodium (Synthroid) 50 mcg PO DAILY@0630 [facility] Last Admin: 01/21/19 06:38 Dose: 50 mcg Pantoprazole Sodium (Protonix Susp) 40 mg NG DAILY [facility] Last Admin: 01/21/19 10:10 Dose: 40 mg Rifaximin (Xifaxan) 550 mg PO BID [facility]; Protocol Last Admin: 01/21/19 10:14 Dose: 550 mg Thiamine HCl (Vitamin B1 Tab) 100 mg GT DAILY [facility] Last Admin: 01/21/19 10:13 Dose: 100 mg - Labs Labs: 01/21/19 05:19 01/21/19 05:19 PT 16.1 Seconds (9.8-13.1) H 01/11/19 05:33 INR 1.4 01/11/19 05:33 APTT 32.9 Seconds (25.6-37.1) 01/11/19 05:33 - Constitutional Appears: No Acute Distress - Eye Exam Eye Exam: Conjunctival injection - ENT Exam ENT Exam: Mucous Membranes Moist - Respiratory Exam Respiratory Exam: Rhonchi. absent: Chest Wall Tenderness - Cardiovascular Exam Cardiovascular Exam: absent: Gallop, JVD, Rubs - GI/Abdominal Exam GI & Abdominal Exam: Soft. absent: Guarding - Extremities Exam Extremities Exam: absent: Calf Tenderness - Back Exam Back Exam: absent: CVA tenderness (L), CVA tenderness (R) - Neurological Exam Neurological Exam: Altered - Psychiatric Exam Psychiatric exam: Flat Affect - Skin Skin Exam: absent: Cyanosis Assessment and Plan (1) Hyponatremia Status: Acute (2) NIRAJ (acute kidney injury) Assessment & Plan: Acute kidney injury recovering hypernatremia NG tube feeding noted with 150cc of water has been given every 6 hours through the NG tube. Patient diagnosed with liver cirrhosis and liver malignancy as noted Hepatic encephalopathy Diabetes mellitus Respiratory failure Recommendation Serum sodium trending up patient became hypernatremic the last serum sodium 150. Increase NG tube flushing with water to 300 cc from 150 cc for the next 24 hours The rest of the management as per primary team and intensive care unit team Status: Acute (3) Acute respiratory failure Status: Acute (4) Altered mental status Status: Acute (5) Hepatic encephalopathy Status: Acute (6) Hyperammonemia Status: Acute (7) Liver mass Status: Acute (8) Thrombocytopenia Status: Acute
--- NOTE | 2019-01-21 13:15 | CP.PCM.PN ---
Subjective - Date & Time of Evaluation Date of Evaluation: 01/21/19 Time of Evaluation: 13:15 - Subjective Subjective: ID note- Patient seen and examined today in ICU. pt. more alert today and he denies any pain , denies any fever or chills. is on FM for oxygenation. Objective - Vital Signs/Intake and Output Vital Signs (last 24 hours): Temp Pulse Resp BP Pulse Ox 98.5 F 81 20 130/72 100 01/21/19 12:00 01/21/19 12:00 01/21/19 12:00 01/21/19 12:00 01/21/19 12:00 Intake and Output: 01/21/19 01/21/19 06:59 18:59 Intake Total 1170 532 Output Total 1000 Balance 170 532 - Medications Medications: Current Medications Acetaminophen (Tylenol 650mg/20.3ml Solution Ud) 650 mg NG Q6 PRN PRN Reason: for temp>100.4 deg f Acetylcysteine (Acetylcysteine 20%) 2 ml INH RBID [facility] Last Admin: 01/21/19 08:36 Dose: 2 ml Albuterol Sulfate (Albuterol 0.083% Inhal Mana (2.5 Mg/3 Ml) Ud) 2.5 mg INH RBID [facility] Last Admin: 01/21/19 08:36 Dose: 2.5 mg Carvedilol (Coreg) 6.25 mg NG Q12 [facility] Last Admin: 01/21/19 08:44 Dose: Not Given Cilostazol (Pletal) 50 mg PO Q12 [facility] Last Admin: 01/07/19 10:22 Dose: Not Given Folic Acid (Folic Acid) 1 mg GT DAILY [facility] Last Admin: 01/21/19 09:50 Dose: 1 mg Hydralazine HCl (Apresoline) 25 mg PO TID [facility] Last Admin: 01/21/19 08:43 Dose: Not Given Meropenem 1 gm/ Sodium (Chloride) 100 mls @ 100 mls/hr IVPB Q8 [facility]; Protocol Last Admin: 01/21/19 10:10 Dose: 100 mls/hr Lactulose (Enulose) 20 gm GT Q4H [facility] Last Admin: 01/21/19 09:50 Dose: 20 gm Levothyroxine Sodium (Synthroid) 50 mcg PO DAILY@0630 [facility] Last Admin: 01/21/19 06:38 Dose: 50 mcg Pantoprazole Sodium (Protonix Susp) 40 mg NG DAILY [facility] Last Admin: 01/21/19 10:10 Dose: 40 mg Rifaximin (Xifaxan) 550 mg PO BID [facility]; Protocol Last Admin: 01/21/19 10:14 Dose: 550 mg Thiamine HCl (Vitamin B1 Tab) 100 mg GT DAILY [facility] Last Admin: 01/21/19 10:13 Dose: 100 mg - Labs Labs: - Additional Findings Additional findings: - Constitutional Additional comments: awake and more alert today - Neck Exam Neck exam: Positive for: Full Rom - Respiratory Exam Additional comments: breath sounds heard b/l - Cardiovascular Exam Cardiovascular Exam: RRR, +S1, +S2 - GI/Abdominal Exam GI & Abdominal Exam: Normal Bowel Sounds, Soft Additional comments: NT, ND - Extremities Exam Extremities exam: Positive for: normal inspection - Neurological Exam Neurological exam: awake and much more alert and can answer questions Laboratory Results - last 72 hr 01/18/19 01/18/19 01/18/19 12:02 16:59 18:27 WBC RBC Hgb Hct MCV MCH MCHC RDW Plt Count MPV Neut % (Auto) Lymph % (Auto) [place] % (Auto) Eos % (Auto) Baso % (Auto) Neut # (Auto) Lymph # (Auto) [place] # (Auto) Eos # (Auto) Baso # (Auto) Neutrophils % (Manual) Lymphocytes % (Manual) Monocytes % (Manual) Eosinophils % (Manual) Myelocytes % Platelet Estimate Large Platelets Anisocytosis (manual) Macrocytosis (manual) Tear Drop Cells pCO2 pO2 HCO3 ABG pH ABG Total CO2 ABG O2 Saturation ABG O2 Content ABG Base Excess ABG Hemoglobin ABG Carboxyhemoglobin POC ABG HHb (Measured) ABG Methemoglobin ABG O2 Capacity [place] Test A-a O2 Difference Hgb O2 Saturation Vent Mode Mechanical Rate FiO2 Tidal Volume PEEP Pressure Support Sodium Potassium Chloride Carbon Dioxide Anion Gap BUN Creatinine Est GFR ( Amer) Est GFR (Non-Af Amer) POC Glucose (mg/dL) 389 H 457 H* 431 H* Random Glucose Lactic Acid Calcium Phosphorus Magnesium Total Bilirubin AST ALT Alkaline Phosphatase Ammonia Total Protein Albumin Globulin Albumin/Globulin Ratio 01/18/19 01/18/19 01/18/19 19:51 20:54 21:50 WBC RBC Hgb Hct MCV MCH MCHC RDW Plt Count MPV Neut % (Auto) Lymph % (Auto) [place] % (Auto) Eos % (Auto) Baso % (Auto) Neut # (Auto) Lymph # (Auto) [place] # (Auto) Eos # (Auto) Baso # (Auto) Neutrophils % (Manual) Lymphocytes % (Manual) Monocytes % (Manual) Eosinophils % (Manual) Myelocytes % Platelet Estimate Large Platelets Anisocytosis (manual) Macrocytosis (manual) Tear Drop Cells pCO2 pO2 HCO3 ABG pH ABG Total CO2 ABG O2 Saturation ABG O2 Content ABG Base Excess ABG Hemoglobin ABG Carboxyhemoglobin POC ABG HHb (Measured) ABG Methemoglobin ABG O2 Capacity [place] Test A-a O2 Difference Hgb O2 Saturation Vent Mode Mechanical Rate FiO2 Tidal Volume PEEP Pressure Support Sodium Potassium Chloride Carbon Dioxide Anion Gap BUN Creatinine Est GFR ( Amer) Est GFR (Non-Af Amer) POC Glucose (mg/dL) 403 H* 395 H 357 H Random Glucose Lactic Acid Calcium Phosphorus Magnesium Total Bilirubin AST ALT Alkaline Phosphatase Ammonia Total Protein Albumin Globulin Albumin/Globulin Ratio 01/18/19 01/18/19 01/19/19 22:50 23:53 00:56 WBC RBC Hgb Hct MCV MCH MCHC RDW Plt Count MPV Neut % (Auto) Lymph % (Auto) [place] % (Auto) Eos % (Auto) Baso % (Auto) Neut # (Auto) Lymph # (Auto) [place] # (Auto) Eos # (Auto) Baso # (Auto) Neutrophils % (Manual) Lymphocytes % (Manual) Monocytes % (Manual) Eosinophils % (Manual) Myelocytes % Platelet Estimate Large Platelets Anisocytosis (manual) Macrocytosis (manual) Tear Drop Cells pCO2 pO2 HCO3 ABG pH ABG Total CO2 ABG O2 Saturation ABG O2 Content ABG Base Excess ABG Hemoglobin ABG Carboxyhemoglobin POC ABG HHb (Measured) ABG Methemoglobin ABG O2 Capacity [place] Test A-a O2 Difference Hgb O2 Saturation Vent Mode Mechanical Rate FiO2 Tidal Volume PEEP Pressure Support Sodium Potassium Chloride Carbon Dioxide Anion Gap BUN Creatinine Est GFR ( Amer) Est GFR (Non-Af Amer) POC Glucose (mg/dL) 361 H 310 H 291 H Random Glucose Lactic Acid Calcium Phosphorus Magnesium Total Bilirubin AST ALT Alkaline Phosphatase Ammonia Total Protein Albumin Globulin Albumin/Globulin Ratio 01/19/19 01/19/19 01/19/19 02:00 02:57 03:58 WBC RBC Hgb Hct MCV MCH MCHC RDW Plt Count MPV Neut % (Auto) Lymph % (Auto) [place] % (Auto) Eos % (Auto) Baso % (Auto) Neut # (Auto) Lymph # (Auto) [place] # (Auto) Eos # (Auto) Baso # (Auto) Neutrophils % (Manual) Lymphocytes % (Manual) Monocytes % (Manual) Eosinophils % (Manual) Myelocytes % Platelet Estimate Large Platelets Anisocytosis (manual) Macrocytosis (manual) Tear Drop Cells pCO2 pO2 HCO3 ABG pH ABG Total CO2 ABG O2 Saturation ABG O2 Content ABG Base Excess ABG Hemoglobin ABG Carboxyhemoglobin POC ABG HHb (Measured) ABG Methemoglobin ABG O2 Capacity [place] Test A-a O2 Difference Hgb O2 Saturation Vent Mode Mechanical Rate FiO2 Tidal Volume PEEP Pressure Support Sodium Potassium Chloride Carbon Dioxide Anion Gap BUN Creatinine Est GFR ( Amer) Est GFR (Non-Af Amer) POC Glucose (mg/dL) 276 H 271 H 276 H Random Glucose Lactic Acid Calcium Phosphorus Magnesium Total Bilirubin AST ALT Alkaline Phosphatase Ammonia Total Protein Albumin Globulin Albumin/Globulin Ratio 01/19/19 01/19/19 01/19/19 04:04 04:30 04:30 WBC 11.9 H RBC 3.22 L Hgb 12.3 Hct 36.3 MCV 112.5 H MCH 38.1 H MCHC 33.8 RDW 18.0 H Plt Count 134 MPV 10.1 Neut % (Auto) 79.4 H Lymph % (Auto) 5.4 L [place] % (Auto) 12.7 H Eos % (Auto) 2.3 Baso % (Auto) 0.2 Neut # (Auto) 9.5 H Lymph # (Auto) 0.6 L [place] # (Auto) 1.5 H Eos # (Auto) 0.3 Baso # (Auto) 0.0 Neutrophils % (Manual) 81 H Lymphocytes % (Manual) 5 L Monocytes % (Manual) 10 Eosinophils % (Manual) 3 Myelocytes % 1 H Platelet Estimate Normal Large Platelets Present Anisocytosis (manual) Slight Macrocytosis (manual) Slight Tear Drop Cells Slight pCO2 35 pO2 85 HCO3 29.9 H ABG pH 7.53 H ABG Total CO2 30.3 H ABG O2 Saturation 98.8 H ABG O2 Content 16.9 ABG Base Excess 6.4 H ABG Hemoglobin 12.6 ABG Carboxyhemoglobin 2.0 H POC ABG HHb (Measured) 1.2 ABG Methemoglobin 1.8 ABG O2 Capacity 17.1 [place] Test Yes A-a O2 Difference 85.0 Hgb O2 Saturation 95.0 Vent Mode A/c Mechanical Rate 10 FiO2 30.0 Tidal Volume 400 PEEP 5 Pressure Support Sodium 144 Potassium 4.3 Chloride 112 H Carbon Dioxide 30 Anion Gap 6 L BUN 77 H Creatinine 1.4 Est GFR ( Amer) > 60 Est GFR (Non-Af Amer) 50 POC Glucose (mg/dL) Random Glucose 219 H Lactic Acid Calcium 8.5 Phosphorus 2.8 Magnesium 3.9 H Total Bilirubin 1.8 H AST 94 H ALT 64 Alkaline Phosphatase 388 H Ammonia Total Protein 6.0 L Albumin 2.2 L Globulin 3.8 Albumin/Globulin Ratio 0.6 L 01/19/19 01/19/19 01/19/19 04:30 04:30 04:58 WBC RBC Hgb Hct MCV MCH MCHC RDW Plt Count MPV Neut % (Auto) Lymph % (Auto) [place] % (Auto) Eos % (Auto) Baso % (Auto) Neut # (Auto) Lymph # (Auto) [place] # (Auto) Eos # (Auto) Baso # (Auto) Neutrophils % (Manual) Lymphocytes % (Manual) Monocytes % (Manual) Eosinophils % (Manual) Myelocytes % Platelet Estimate Large Platelets Anisocytosis (manual) Macrocytosis (manual) Tear Drop Cells pCO2 pO2 HCO3 ABG pH ABG Total CO2 ABG O2 Saturation ABG O2 Content ABG Base Excess ABG Hemoglobin ABG Carboxyhemoglobin POC ABG HHb (Measured) ABG Methemoglobin ABG O2 Capacity [place] Test A-a O2 Difference Hgb O2 Saturation Vent Mode Mechanical Rate FiO2 Tidal Volume PEEP Pressure Support Sodium Potassium Chloride Carbon Dioxide Anion Gap BUN Creatinine Est GFR ( Amer) Est GFR (Non-Af Amer) POC Glucose (mg/dL) 225 H Random Glucose Lactic Acid 1.2 Calcium Phosphorus Magnesium Total Bilirubin AST ALT Alkaline Phosphatase Ammonia 60 H D Total Protein Albumin Globulin Albumin/Globulin Ratio 01/19/19 01/19/19 01/19/19 05:26 06:14 07:16 WBC RBC Hgb Hct MCV MCH MCHC RDW Plt Count MPV Neut % (Auto) Lymph % (Auto) [place] % (Auto) Eos % (Auto) Baso % (Auto) Neut # (Auto) Lymph # (Auto) [place] # (Auto) Eos # (Auto) Baso # (Auto) Neutrophils % (Manual) Lymphocytes % (Manual) Monocytes % (Manual) Eosinophils % (Manual) Myelocytes % Platelet Estimate Large Platelets Anisocytosis (manual) Macrocytosis (manual) Tear Drop Cells pCO2 pO2 HCO3 ABG pH ABG Total CO2 ABG O2 Saturation ABG O2 Content ABG Base Excess ABG Hemoglobin ABG Carboxyhemoglobin POC ABG HHb (Measured) ABG Methemoglobin ABG O2 Capacity [place] Test A-a O2 Difference Hgb O2 Saturation Vent Mode Mechanical Rate FiO2 Tidal Volume PEEP Pressure Support Sodium Potassium Chloride Carbon Dioxide Anion Gap BUN Creatinine Est GFR ( Amer) Est GFR (Non-Af Amer) POC Glucose (mg/dL) 221 H 180 H 161 H Random Glucose Lactic Acid Calcium Phosphorus Magnesium Total Bilirubin AST ALT Alkaline Phosphatase Ammonia Total Protein Albumin Globulin Albumin/Globulin Ratio 01/19/19 01/19/19 01/19/19 08:02 09:07 10:10 WBC RBC Hgb Hct MCV MCH MCHC RDW Plt Count MPV Neut % (Auto) Lymph % (Auto) [place] % (Auto) Eos % (Auto) Baso % (Auto) Neut # (Auto) Lymph # (Auto) [place] # (Auto) Eos # (Auto) Baso # (Auto) Neutrophils % (Manual) Lymphocytes % (Manual) Monocytes % (Manual) Eosinophils % (Manual) Myelocytes % Platelet Estimate Large Platelets Anisocytosis (manual) Macrocytosis (manual) Tear Drop Cells pCO2 pO2 HCO3 ABG pH ABG Total CO2 ABG O2 Saturation ABG O2 Content ABG Base Excess ABG Hemoglobin ABG Carboxyhemoglobin POC ABG HHb (Measured) ABG Methemoglobin ABG O2 Capacity [place] Test A-a O2 Difference Hgb O2 Saturation Vent Mode Mechanical Rate FiO2 Tidal Volume PEEP Pressure Support Sodium Potassium Chloride Carbon Dioxide Anion Gap BUN Creatinine Est GFR ( Amer) Est GFR (Non-Af Amer) POC Glucose (mg/dL) 186 H 245 H 281 H Random Glucose Lactic Acid Calcium Phosphorus Magnesium Total Bilirubin AST ALT Alkaline Phosphatase Ammonia Total Protein Albumin Globulin Albumin/Globulin Ratio 01/19/19 01/19/19 01/19/19 11:07 12:18 14:01 WBC RBC Hgb Hct MCV MCH MCHC RDW Plt Count MPV Neut % (Auto) Lymph % (Auto) [place] % (Auto) Eos % (Auto) Baso % (Auto) Neut # (Auto) Lymph # (Auto) [place] # (Auto) Eos # (Auto) Baso # (Auto) Neutrophils % (Manual) Lymphocytes % (Manual) Monocytes % (Manual) Eosinophils % (Manual) Myelocytes % Platelet Estimate Large Platelets Anisocytosis (manual) Macrocytosis (manual) Tear Drop Cells pCO2 pO2 HCO3 ABG pH ABG Total CO2 ABG O2 Saturation ABG O2 Content ABG Base Excess ABG Hemoglobin ABG Carboxyhemoglobin POC ABG HHb (Measured) ABG Methemoglobin ABG O2 Capacity [place] Test A-a O2 Difference Hgb O2 Saturation Vent Mode Mechanical Rate FiO2 Tidal Volume PEEP Pressure Support Sodium Potassium Chloride Carbon Dioxide Anion Gap BUN Creatinine Est GFR ( Amer) Est GFR (Non-Af Amer) POC Glucose (mg/dL) 291 H 251 H 203 H Random Glucose Lactic Acid Calcium Phosphorus Magnesium Total Bilirubin AST ALT Alkaline Phosphatase Ammonia Total Protein Albumin Globulin Albumin/Globulin Ratio 01/19/19 01/19/19 01/19/19 15:23 16:00 17:02 WBC RBC Hgb Hct MCV MCH MCHC RDW Plt Count MPV Neut % (Auto) Lymph % (Auto) [place] % (Auto) Eos % (Auto) Baso % (Auto) Neut # (Auto) Lymph # (Auto) [place] # (Auto) Eos # (Auto) Baso # (Auto) Neutrophils % (Manual) Lymphocytes % (Manual) Monocytes % (Manual) Eosinophils % (Manual) Myelocytes % Platelet Estimate Large Platelets Anisocytosis (manual) Macrocytosis (manual) Tear Drop Cells pCO2 pO2 HCO3 ABG pH ABG Total CO2 ABG O2 Saturation ABG O2 Content ABG Base Excess ABG Hemoglobin ABG Carboxyhemoglobin POC ABG HHb (Measured) ABG Methemoglobin ABG O2 Capacity [place] Test A-a O2 Difference Hgb O2 Saturation Vent Mode Mechanical Rate FiO2 Tidal Volume PEEP Pressure Support Sodium Potassium Chloride Carbon Dioxide Anion Gap BUN Creatinine Est GFR ( Amer) Est GFR (Non-Af Amer) POC Glucose (mg/dL) 223 H 225 H 238 H Random Glucose Lactic Acid Calcium Phosphorus Magnesium Total Bilirubin AST ALT Alkaline Phosphatase Ammonia Total Protein Albumin Globulin Albumin/Globulin Ratio 01/19/19 01/19/19 01/19/19 17:57 19:05 19:56 WBC RBC Hgb Hct MCV MCH MCHC RDW Plt Count MPV Neut % (Auto) Lymph % (Auto) [place] % (Auto) Eos % (Auto) Baso % (Auto) Neut # (Auto) Lymph # (Auto) [place] # (Auto) Eos # (Auto) Baso # (Auto) Neutrophils % (Manual) Lymphocytes % (Manual) Monocytes % (Manual) Eosinophils % (Manual) Myelocytes % Platelet Estimate Large Platelets Anisocytosis (manual) Macrocytosis (manual) Tear Drop Cells pCO2 pO2 HCO3 ABG pH ABG Total CO2 ABG O2 Saturation ABG O2 Content ABG Base Excess ABG Hemoglobin ABG Carboxyhemoglobin POC ABG HHb (Measured) ABG Methemoglobin ABG O2 Capacity [place] Test A-a O2 Difference Hgb O2 Saturation Vent Mode Mechanical Rate FiO2 Tidal Volume PEEP Pressure Support Sodium Potassium Chloride Carbon Dioxide Anion Gap BUN Creatinine Est GFR ( Amer) Est GFR (Non-Af Amer) POC Glucose (mg/dL) 234 H 209 H 168 H Random Glucose Lactic Acid Calcium Phosphorus Magnesium Total Bilirubin AST ALT Alkaline Phosphatase Ammonia Total Protein Albumin Globulin Albumin/Globulin Ratio 01/19/19 01/19/19 01/19/19 21:03 22:01 23:00 WBC RBC Hgb Hct MCV MCH MCHC RDW Plt Count MPV Neut % (Auto) Lymph % (Auto) [place] % (Auto) Eos % (Auto) Baso % (Auto) Neut # (Auto) Lymph # (Auto) [place] # (Auto) Eos # (Auto) Baso # (Auto) Neutrophils % (Manual) Lymphocytes % (Manual) Monocytes % (Manual) Eosinophils % (Manual) Myelocytes % Platelet Estimate Large Platelets Anisocytosis (manual) Macrocytosis (manual) Tear Drop Cells pCO2 pO2 HCO3 ABG pH ABG Total CO2 ABG O2 Saturation ABG O2 Content ABG Base Excess ABG Hemoglobin ABG Carboxyhemoglobin POC ABG HHb (Measured) ABG Methemoglobin ABG O2 Capacity [place] Test A-a O2 Difference Hgb O2 Saturation Vent Mode Mechanical Rate FiO2 Tidal Volume PEEP Pressure Support Sodium Potassium Chloride Carbon Dioxide Anion Gap BUN Creatinine Est GFR ( Amer) Est GFR (Non-Af Amer) POC Glucose (mg/dL) 166 H 212 H 228 H Random Glucose Lactic Acid Calcium Phosphorus Magnesium Total Bilirubin AST ALT Alkaline Phosphatase Ammonia Total Protein Albumin Globulin Albumin/Globulin Ratio 01/20/19 01/20/19 01/20/19 00:00 00:57 01:59 WBC RBC Hgb Hct MCV MCH MCHC RDW Plt Count MPV Neut % (Auto) Lymph % (Auto) [place] % (Auto) Eos % (Auto) Baso % (Auto) Neut # (Auto) Lymph # (Auto) [place] # (Auto) Eos # (Auto) Baso # (Auto) Neutrophils % (Manual) Lymphocytes % (Manual) Monocytes % (Manual) Eosinophils % (Manual) Myelocytes % Platelet Estimate Large Platelets Anisocytosis (manual) Macrocytosis (manual) Tear Drop Cells pCO2 pO2 HCO3 ABG pH ABG Total CO2 ABG O2 Saturation ABG O2 Content ABG Base Excess ABG Hemoglobin ABG Carboxyhemoglobin POC ABG HHb (Measured) ABG Methemoglobin ABG O2 Capacity [place] Test A-a O2 Difference Hgb O2 Saturation Vent Mode Mechanical Rate FiO2 Tidal Volume PEEP Pressure Support Sodium Potassium Chloride Carbon Dioxide Anion Gap BUN Creatinine Est GFR ( Amer) Est GFR (Non-Af Amer) POC Glucose (mg/dL) 259 H 232 H 235 H Random Glucose Lactic Acid Calcium Phosphorus Magnesium Total Bilirubin AST ALT Alkaline Phosphatase Ammonia Total Protein Albumin Globulin Albumin/Globulin Ratio 01/20/19 01/20/19 01/20/19 02:54 03:57 04:30 WBC 12.5 H RBC 3.07 L Hgb 11.9 L Hct 34.7 L MCV 113.3 H MCH 38.8 H MCHC 34.3 RDW 17.6 H Plt Count 133 MPV Neut % (Auto) Lymph % (Auto) [place] % (Auto) Eos % (Auto) Baso % (Auto) Neut # (Auto) Lymph # (Auto) [place] # (Auto) Eos # (Auto) Baso # (Auto) Neutrophils % (Manual) Lymphocytes % (Manual) Monocytes % (Manual) Eosinophils % (Manual) Myelocytes % Platelet Estimate Large Platelets Anisocytosis (manual) Macrocytosis (manual) Tear Drop Cells pCO2 pO2 HCO3 ABG pH ABG Total CO2 ABG O2 Saturation ABG O2 Content ABG Base Excess ABG Hemoglobin ABG Carboxyhemoglobin POC ABG HHb (Measured) ABG Methemoglobin ABG O2 Capacity [place] Test A-a O2 Difference Hgb O2 Saturation Vent Mode Mechanical Rate FiO2 Tidal Volume PEEP Pressure Support Sodium Potassium Chloride Carbon Dioxide Anion Gap BUN Creatinine Est GFR ( Amer) Est GFR (Non-Af Amer) POC Glucose (mg/dL) 248 H 244 H Random Glucose Lactic Acid Calcium Phosphorus Magnesium Total Bilirubin AST ALT Alkaline Phosphatase Ammonia Total Protein Albumin Globulin Albumin/Globulin Ratio 01/20/19 01/20/19 01/20/19 04:30 05:01 05:06 WBC RBC Hgb Hct MCV MCH MCHC RDW Plt Count MPV Neut % (Auto) Lymph % (Auto) [place] % (Auto) Eos % (Auto) Baso % (Auto) Neut # (Auto) Lymph # (Auto) [place] # (Auto) Eos # (Auto) Baso # (Auto) Neutrophils % (Manual) Lymphocytes % (Manual) Monocytes % (Manual) Eosinophils % (Manual) Myelocytes % Platelet Estimate Large Platelets Anisocytosis (manual) Macrocytosis (manual) Tear Drop Cells pCO2 37 pO2 83 HCO3 30.3 H ABG pH 7.52 H ABG Total CO2 31.3 H ABG O2 Saturation 99.4 H ABG O2 Content 18.3 ABG Base Excess 7.0 H ABG Hemoglobin 13.6 ABG Carboxyhemoglobin 2.3 H POC ABG HHb (Measured) 0.6 ABG Methemoglobin 1.5 ABG O2 Capacity 18.4 [place] Test Yes A-a O2 Difference 85.0 Hgb O2 Saturation 95.6 Vent Mode A/c Mechanical Rate 10 FiO2 30.0 Tidal Volume 400 PEEP 5 Pressure Support Sodium 147 Potassium 3.9 Chloride 114 H Carbon Dioxide 30 Anion Gap 7 L BUN 67 H Creatinine 1.1 Est GFR ( Amer) > 60 Est GFR (Non-Af Amer) > 60 POC Glucose (mg/dL) 238 H Random Glucose 239 H Lactic Acid Calcium 8.6 Phosphorus 2.7 Magnesium 3.5 H Total Bilirubin 1.7 H AST 81 H ALT 60 Alkaline Phosphatase 345 H Ammonia Total Protein 5.8 L Albumin 2.0 L Globulin 3.7 Albumin/Globulin Ratio 0.5 L 01/20/19 01/20/19 01/20/19 06:07 06:55 08:00 WBC RBC Hgb Hct MCV MCH MCHC RDW Plt Count MPV Neut % (Auto) Lymph % (Auto) [place] % (Auto) Eos % (Auto) Baso % (Auto) Neut # (Auto) Lymph # (Auto) [place] # (Auto) Eos # (Auto) Baso # (Auto) Neutrophils % (Manual) Lymphocytes % (Manual) Monocytes % (Manual) Eosinophils % (Manual) Myelocytes % Platelet Estimate Large Platelets Anisocytosis (manual) Macrocytosis (manual) Tear Drop Cells pCO2 pO2 HCO3 ABG pH ABG Total CO2 ABG O2 Saturation ABG O2 Content ABG Base Excess ABG Hemoglobin ABG Carboxyhemoglobin POC ABG HHb (Measured) ABG Methemoglobin ABG O2 Capacity [place] Test A-a O2 Difference Hgb O2 Saturation Vent Mode Mechanical Rate FiO2 Tidal Volume PEEP Pressure Support Sodium Potassium Chloride Carbon Dioxide Anion Gap BUN Creatinine Est GFR ( Amer) Est GFR (Non-Af Amer) POC Glucose (mg/dL) 220 H 221 H 239 H Random Glucose Lactic Acid Calcium Phosphorus Magnesium Total Bilirubin AST ALT Alkaline Phosphatase Ammonia Total Protein Albumin Globulin Albumin/Globulin Ratio 01/20/19 01/20/19 01/20/19 08:31 09:04 10:01 WBC RBC Hgb Hct MCV MCH MCHC RDW Plt Count MPV Neut % (Auto) Lymph % (Auto) [place] % (Auto) Eos % (Auto) Baso % (Auto) Neut # (Auto) Lymph # (Auto) [place] # (Auto) Eos # (Auto) Baso # (Auto) Neutrophils % (Manual) Lymphocytes % (Manual) Monocytes % (Manual) Eosinophils % (Manual) Myelocytes % Platelet Estimate Large Platelets Anisocytosis (manual) Macrocytosis (manual) Tear Drop Cells pCO2 38 pO2 83 HCO3 30.8 H ABG pH 7.52 H ABG Total CO2 32.2 H ABG O2 Saturation 99.0 H ABG O2 Content 15.6 ABG Base Excess 7.6 H ABG Hemoglobin 11.5 L ABG Carboxyhemoglobin 1.8 H POC ABG HHb (Measured) 1.0 ABG Methemoglobin 1.3 ABG O2 Capacity 15.8 L [place] Test Yes A-a O2 Difference 83.0 Hgb O2 Saturation 95.8 Vent Mode Cpap+ps Mechanical Rate FiO2 30.0 Tidal Volume PEEP 10 Pressure Support 5 Sodium Potassium Chloride Carbon Dioxide Anion Gap BUN Creatinine Est GFR ( Amer) Est GFR (Non-Af Amer) POC Glucose (mg/dL) 237 H 178 H Random Glucose Lactic Acid Calcium Phosphorus Magnesium Total Bilirubin AST ALT Alkaline Phosphatase Ammonia Total Protein Albumin Globulin Albumin/Globulin Ratio 01/20/19 01/20/19 01/20/19 10:58 12:00 12:04 WBC RBC Hgb Hct MCV MCH MCHC RDW Plt Count MPV Neut % (Auto) Lymph % (Auto) [place] % (Auto) Eos % (Auto) Baso % (Auto) Neut # (Auto) Lymph # (Auto) [place] # (Auto) Eos # (Auto) Baso # (Auto) Neutrophils % (Manual) Lymphocytes % (Manual) Monocytes % (Manual) Eosinophils % (Manual) Myelocytes % Platelet Estimate Large Platelets Anisocytosis (manual) Macrocytosis (manual) Tear Drop Cells pCO2 pO2 HCO3 ABG pH ABG Total CO2 ABG O2 Saturation ABG O2 Content ABG Base Excess ABG Hemoglobin ABG Carboxyhemoglobin POC ABG HHb (Measured) ABG Methemoglobin ABG O2 Capacity [place] Test A-a O2 Difference Hgb O2 Saturation Vent Mode Mechanical Rate FiO2 Tidal Volume PEEP Pressure Support Sodium Potassium Chloride Carbon Dioxide Anion Gap BUN Creatinine Est GFR ( Amer) Est GFR (Non-Af Amer) POC Glucose (mg/dL) 167 H 192 H Random Glucose Lactic Acid Calcium Phosphorus Magnesium Total Bilirubin AST ALT Alkaline Phosphatase Ammonia 33 D Total Protein Albumin Globulin Albumin/Globulin Ratio 01/20/19 01/20/19 01/20/19 13:02 14:03 14:58 WBC RBC Hgb Hct MCV MCH MCHC RDW Plt Count MPV Neut % (Auto) Lymph % (Auto) [place] % (Auto) Eos % (Auto) Baso % (Auto) Neut # (Auto) Lymph # (Auto) [place] # (Auto) Eos # (Auto) Baso # (Auto) Neutrophils % (Manual) Lymphocytes % (Manual) Monocytes % (Manual) Eosinophils % (Manual) Myelocytes % Platelet Estimate Large Platelets Anisocytosis (manual) Macrocytosis (manual) Tear Drop Cells pCO2 pO2 HCO3 ABG pH ABG Total CO2 ABG O2 Saturation ABG O2 Content ABG Base Excess ABG Hemoglobin ABG Carboxyhemoglobin POC ABG HHb (Measured) ABG Methemoglobin ABG O2 Capacity [place] Test A-a O2 Difference Hgb O2 Saturation Vent Mode Mechanical Rate FiO2 Tidal Volume PEEP Pressure Support Sodium Potassium Chloride Carbon Dioxide Anion Gap BUN Creatinine Est GFR ( Amer) Est GFR (Non-Af Amer) POC Glucose (mg/dL) 201 H 191 H 213 H Random Glucose Lactic Acid Calcium Phosphorus Magnesium Total Bilirubin AST ALT Alkaline Phosphatase Ammonia Total Protein Albumin Globulin Albumin/Globulin Ratio 01/20/19 01/20/19 01/20/19 16:03 17:09 18:02 WBC RBC Hgb Hct MCV MCH MCHC RDW Plt Count MPV Neut % (Auto) Lymph % (Auto) [place] % (Auto) Eos % (Auto) Baso % (Auto) Neut # (Auto) Lymph # (Auto) [place] # (Auto) Eos # (Auto) Baso # (Auto) Neutrophils % (Manual) Lymphocytes % (Manual) Monocytes % (Manual) Eosinophils % (Manual) Myelocytes % Platelet Estimate Large Platelets Anisocytosis (manual) Macrocytosis (manual) Tear Drop Cells pCO2 pO2 HCO3 ABG pH ABG Total CO2 ABG O2 Saturation ABG O2 Content ABG Base Excess ABG Hemoglobin ABG Carboxyhemoglobin POC ABG HHb (Measured) ABG Methemoglobin ABG O2 Capacity [place] Test A-a O2 Difference Hgb O2 Saturation Vent Mode Mechanical Rate FiO2 Tidal Volume PEEP Pressure Support Sodium Potassium Chloride Carbon Dioxide Anion Gap BUN Creatinine Est GFR ( Amer) Est GFR (Non-Af Amer) POC Glucose (mg/dL) 233 H 244 H 238 H Random Glucose Lactic Acid Calcium Phosphorus Magnesium Total Bilirubin AST ALT Alkaline Phosphatase Ammonia Total Protein Albumin Globulin Albumin/Globulin Ratio 01/20/19 01/20/19 01/20/19 18:57 20:03 21:01 WBC RBC Hgb Hct MCV MCH MCHC RDW Plt Count MPV Neut % (Auto) Lymph % (Auto) [place] % (Auto) Eos % (Auto) Baso % (Auto) Neut # (Auto) Lymph # (Auto) [place] # (Auto) Eos # (Auto) Baso # (Auto) Neutrophils % (Manual) Lymphocytes % (Manual) Monocytes % (Manual) Eosinophils % (Manual) Myelocytes % Platelet Estimate Large Platelets Anisocytosis (manual) Macrocytosis (manual) Tear Drop Cells pCO2 pO2 HCO3 ABG pH ABG Total CO2 ABG O2 Saturation ABG O2 Content ABG Base Excess ABG Hemoglobin ABG Carboxyhemoglobin POC ABG HHb (Measured) ABG Methemoglobin ABG O2 Capacity [place] Test A-a O2 Difference Hgb O2 Saturation Vent Mode Mechanical Rate FiO2 Tidal Volume PEEP Pressure Support Sodium Potassium Chloride Carbon Dioxide Anion Gap BUN Creatinine Est GFR ( Amer) Est GFR (Non-Af Amer) POC Glucose (mg/dL) 239 H 245 H 228 H Random Glucose Lactic Acid Calcium Phosphorus Magnesium Total Bilirubin AST ALT Alkaline Phosphatase Ammonia Total Protein Albumin Globulin Albumin/Globulin Ratio 01/20/19 01/20/19 01/20/19 22:03 23:00 23:57 WBC RBC Hgb Hct MCV MCH MCHC RDW Plt Count MPV Neut % (Auto) Lymph % (Auto) [place] % (Auto) Eos % (Auto) Baso % (Auto) Neut # (Auto) Lymph # (Auto) [place] # (Auto) Eos # (Auto) Baso # (Auto) Neutrophils % (Manual) Lymphocytes % (Manual) Monocytes % (Manual) Eosinophils % (Manual) Myelocytes % Platelet Estimate Large Platelets Anisocytosis (manual) Macrocytosis (manual) Tear Drop Cells pCO2 pO2 HCO3 ABG pH ABG Total CO2 ABG O2 Saturation ABG O2 Content ABG Base Excess ABG Hemoglobin ABG Carboxyhemoglobin POC ABG HHb (Measured) ABG Methemoglobin ABG O2 Capacity [place] Test A-a O2 Difference Hgb O2 Saturation Vent Mode Mechanical Rate FiO2 Tidal Volume PEEP Pressure Support Sodium Potassium Chloride Carbon Dioxide Anion Gap BUN Creatinine Est GFR ( Amer) Est GFR (Non-Af Amer) POC Glucose (mg/dL) 257 H 178 H 185 H Random Glucose Lactic Acid Calcium Phosphorus Magnesium Total Bilirubin AST ALT Alkaline Phosphatase Ammonia Total Protein Albumin Globulin Albumin/Globulin Ratio 01/21/19 01/21/19 01/21/19 01:01 02:00 02:59 WBC RBC Hgb Hct MCV MCH MCHC RDW Plt Count MPV Neut % (Auto) Lymph % (Auto) [place] % (Auto) Eos % (Auto) Baso % (Auto) Neut # (Auto) Lymph # (Auto) [place] # (Auto) Eos # (Auto) Baso # (Auto) Neutrophils % (Manual) Lymphocytes % (Manual) Monocytes % (Manual) Eosinophils % (Manual) Myelocytes % Platelet Estimate Large Platelets Anisocytosis (manual) Macrocytosis (manual) Tear Drop Cells pCO2 pO2 HCO3 ABG pH ABG Total CO2 ABG O2 Saturation ABG O2 Content ABG Base Excess ABG Hemoglobin ABG Carboxyhemoglobin POC ABG HHb (Measured) ABG Methemoglobin ABG O2 Capacity [place] Test A-a O2 Difference Hgb O2 Saturation Vent Mode Mechanical Rate FiO2 Tidal Volume PEEP Pressure Support Sodium Potassium Chloride Carbon Dioxide Anion Gap BUN Creatinine Est GFR ( Amer) Est GFR (Non-Af Amer) POC Glucose (mg/dL) 234 H 258 H 242 H Random Glucose Lactic Acid Calcium Phosphorus Magnesium Total Bilirubin AST ALT Alkaline Phosphatase Ammonia Total Protein Albumin Globulin Albumin/Globulin Ratio 01/21/19 01/21/19 01/21/19 04:05 05:01 05:19 WBC 9.1 RBC 2.94 L Hgb 11.4 L Hct 33.7 L MCV 114.4 H MCH 38.7 H MCHC 33.8 RDW 17.6 H Plt Count 133 MPV 10.3 Neut % (Auto) 80.9 H Lymph % (Auto) 7.0 L [place] % (Auto) 10.1 H Eos % (Auto) 1.7 Baso % (Auto) 0.3 Neut # (Auto) 7.4 H Lymph # (Auto) 0.6 L [place] # (Auto) 0.9 H Eos # (Auto) 0.2 Baso # (Auto) 0.0 Neutrophils % (Manual) Lymphocytes % (Manual) Monocytes % (Manual) Eosinophils % (Manual) Myelocytes % Platelet Estimate Large Platelets Anisocytosis (manual) Macrocytosis (manual) Tear Drop Cells pCO2 pO2 HCO3 ABG pH ABG Total CO2 ABG O2 Saturation ABG O2 Content ABG Base Excess ABG Hemoglobin ABG Carboxyhemoglobin POC ABG HHb (Measured) ABG Methemoglobin ABG O2 Capacity [place] Test A-a O2 Difference Hgb O2 Saturation Vent Mode Mechanical Rate FiO2 Tidal Volume PEEP Pressure Support Sodium Potassium Chloride Carbon Dioxide Anion Gap BUN Creatinine Est GFR ( Amer) Est GFR (Non-Af Amer) POC Glucose (mg/dL) 219 H 206 H Random Glucose Lactic Acid Calcium Phosphorus Magnesium Total Bilirubin AST ALT Alkaline Phosphatase Ammonia Total Protein Albumin Globulin Albumin/Globulin Ratio 01/21/19 01/21/19 01/21/19 05:19 06:00 06:56 WBC RBC Hgb Hct MCV MCH MCHC RDW Plt Count MPV Neut % (Auto) Lymph % (Auto) [place] % (Auto) Eos % (Auto) Baso % (Auto) Neut # (Auto) Lymph # (Auto) [place] # (Auto) Eos # (Auto) Baso # (Auto) Neutrophils % (Manual) Lymphocytes % (Manual) Monocytes % (Manual) Eosinophils % (Manual) Myelocytes % Platelet Estimate Large Platelets Anisocytosis (manual) Macrocytosis (manual) Tear Drop Cells pCO2 pO2 HCO3 ABG pH ABG Total CO2 ABG O2 Saturation ABG O2 Content ABG Base Excess ABG Hemoglobin ABG Carboxyhemoglobin POC ABG HHb (Measured) ABG Methemoglobin ABG O2 Capacity [place] Test A-a O2 Difference Hgb O2 Saturation Vent Mode Mechanical Rate FiO2 Tidal Volume PEEP Pressure Support Sodium 150 H Potassium 3.9 Chloride 119 H Carbon Dioxide 29 Anion Gap 6 L BUN 60 H Creatinine 1.1 Est GFR ( Amer) > 60 Est GFR (Non-Af Amer) > 60 POC Glucose (mg/dL) 214 H 246 H Random Glucose 199 H Lactic Acid Calcium 8.6 Phosphorus Magnesium 3.3 H Total Bilirubin 1.7 H AST 99 H D ALT 56 Alkaline Phosphatase 333 H Ammonia Total Protein 5.7 L Albumin 2.0 L Globulin 3.8 Albumin/Globulin Ratio 0.5 L 01/21/19 01/21/19 01/21/19 08:02 09:03 10:01 WBC RBC Hgb Hct MCV MCH MCHC RDW Plt Count MPV Neut % (Auto) Lymph % (Auto) [place] % (Auto) Eos % (Auto) Baso % (Auto) Neut # (Auto) Lymph # (Auto) [place] # (Auto) Eos # (Auto) Baso # (Auto) Neutrophils % (Manual) Lymphocytes % (Manual) Monocytes % (Manual) Eosinophils % (Manual) Myelocytes % Platelet Estimate Large Platelets Anisocytosis (manual) Macrocytosis (manual) Tear Drop Cells pCO2 pO2 HCO3 ABG pH ABG Total CO2 ABG O2 Saturation ABG O2 Content ABG Base Excess ABG Hemoglobin ABG Carboxyhemoglobin POC ABG HHb (Measured) ABG Methemoglobin ABG O2 Capacity [place] Test A-a O2 Difference Hgb O2 Saturation Vent Mode Mechanical Rate FiO2 Tidal Volume PEEP Pressure Support Sodium Potassium Chloride Carbon Dioxide Anion Gap BUN Creatinine Est GFR ( Amer) Est GFR (Non-Af Amer) POC Glucose (mg/dL) 226 H 207 H 203 H Random Glucose Lactic Acid Calcium Phosphorus Magnesium Total Bilirubin AST ALT Alkaline Phosphatase Ammonia Total Protein Albumin Globulin Albumin/Globulin Ratio 01/21/19 11:34 WBC RBC Hgb Hct MCV MCH MCHC RDW Plt Count MPV Neut % (Auto) Lymph % (Auto) [place] % (Auto) Eos % (Auto) Baso % (Auto) Neut # (Auto) Lymph # (Auto) [place] # (Auto) Eos # (Auto) Baso # (Auto) Neutrophils % (Manual) Lymphocytes % (Manual) Monocytes % (Manual) Eosinophils % (Manual) Myelocytes % Platelet Estimate Large Platelets Anisocytosis (manual) Macrocytosis (manual) Tear Drop Cells pCO2 pO2 HCO3 ABG pH ABG Total CO2 ABG O2 Saturation ABG O2 Content ABG Base Excess ABG Hemoglobin ABG Carboxyhemoglobin POC ABG HHb (Measured) ABG Methemoglobin ABG O2 Capacity [place] Test A-a O2 Difference Hgb O2 Saturation Vent Mode Mechanical Rate FiO2 Tidal Volume PEEP Pressure Support Sodium Potassium Chloride Carbon Dioxide Anion Gap BUN Creatinine Est GFR ( Amer) Est GFR (Non-Af Amer) POC Glucose (mg/dL) 209 H Random Glucose Lactic Acid Calcium Phosphorus Magnesium Total Bilirubin AST ALT Alkaline Phosphatase Ammonia Total Protein Albumin Globulin Albumin/Globulin Ratio Microbiology 01/18/19 12:20 Blood-Venous Blood Culture - Preliminary NO GROWTH AFTER 3 DAYS 01/15/19 18:40 Blood Blood Culture - Final NO GROWTH AFTER 5 DAYS 01/15/19 18:40 Blood Gram Stain - Final TEST NOT PERFORMED 01/15/19 17:45 Blood Blood Culture - Final NO GROWTH AFTER 5 DAYS 01/15/19 17:45 Blood Gram Stain - Final TEST NOT PERFORMED 01/18/19 17:39 Blood-Venous Blood Culture - Preliminary NO GROWTH AFTER 48 HOURS 01/17/19 18:20 Sputum Gram Stain - Final 01/17/19 18:20 Sputum Sputum Culture - Final Pseudomonas Aeruginosa 01/15/19 07:16 Urine,Howe Urine Culture - Final Beta Hemolytic Strep Group B 01/10/19 21:25 Trachasp Gram Stain - Preliminary 01/10/19 21:25 Trachasp Sputum Culture - Final Klebsiella Oxytoca Pseudomonas Aeruginosa 01/07/19 18:08 Urine,Howe Urine Culture - Final Beta Hemolytic Strep Group B 01/06/19 10:41 Naris MRSA Culture (Admit) - Final MRSA NOT DETECTED Accession No. : [id number] Patient Name / ID : SUSAN Quiros / [id number] Exam Date : 01/20/2019 05:03:37 ( Approved ) Study Comment : Sex / Age : M / [id number] Creator : Adrián Joshi MD Dictator : Adrián Joshi MD Folder Tier : Student Advisor : Adrián Joshi MD Approver2 : Report Date : 01/20/2019 08:16:13 My Comment : Date of service: 01/20/2019 HISTORY: vented COMPARISON: Portable chest 01/19/2019. TECHNIQUE: 1 view obtained. FINDINGS: LUNGS: Stable endotracheal and orogastric tube deployment. Persistent medial basilar patchy opacity potentially slightly increased. Left basilar patchy opacity now identified by the retrocardiac space potentially reflecting atelectasis. PLEURA: No significant pleural effusion identified, no pneumothorax apparent. CARDIOVASCULAR: No aortic atherosclerotic calcification present. Normal cardiac size. No pulmonary vascular congestion. OSSEOUS STRUCTURES: No significant abnormalities. VISUALIZED UPPER ABDOMEN: Normal. OTHER FINDINGS: None. IMPRESSION: Mild increase in limited medial basilar patchy opacity at the right with probable interval atelectasis developing at the retrocardiac left base. No pulmonary vascular congestion. Assessment and Plan (1) Hospital-acquired bacterial pneumonia Status: Acute (2) Acute respiratory failure Status: Acute - Assessment and Plan (Free Text) Assessment: A/P- 69 year old male with h/o ETOH abuse, liver cirrhosis, liver cancer undergoing chemo who was admitted with change in MS . s/p extubation 2 days ago. clinically much improved. afebrile past 48 hours blood cx- neg x 4 Et tube cx- KLebsilele and pseudomonas not ESBL sputum cx- pseudomonas cx Plan- continue with Meropnem 1 gram IV q8 hours.day #4. advise at least 4 more days of IV meropnem for both pseudomonas and klebsiella pneumonia treatment. d/c vancomycin. monitor aspiration precautions. All imaging and labs and chart notes reviewed. Critical care time spent 35 minutes.
--- NOTE | 2019-01-21 16:40 | CP.CCUPN ---
CCU Subjective - Physician Review Subjective (Free Text): 01/14/19 18:43 The patient was Seen and examined by me at the bedside during ICU round, Medical records reviewed and Management issues were discussed and formulated with the house staff. Events reviewed Patient is 68 years old male with past medical history of Diabetes, Gastritis, HTN, Hypercholesterolemia, Chronic Kidney Disease, liver cirrhosis, hepatic encephalopathy and liver malignancy Who was brought in to the emergency room by the family for evaluation of altered mental status, confusion and abdominal pain Patient was transferred to the intensive care unit the following morning for his worsening of his mental status in the setting of markedly elevated ammonia level up to 367 also overnight he received Ativan for agitation, patient was anxious getting out of bed and unsteady on his feet so Ativan was given Patient was found to be agonal breathing shallow respiration minimal response to pain, [place] Was ordered but he was urgently intubated and mechanically ventilated ICU course noted for improvement of the mental status and he was successfully extubated yesterday Patient is comfortable, in no apparent distress Afebrile, NSR on the monitor Last 24H I&O 3150/2150 Tolerating tube feeding, and planning for swallow evaluation today 01/21/19 Patient blood sugar has been better controlled, will discontinue the insulin drip Switch Accu-Chek II every 4 hours CCU Objective - Vital Signs / Intake & Output Vital Signs (Last 4 hours): Vital Signs Temp Pulse Resp BP 01/21/19 16:08 83 130/72 01/21/19 15:57 88 118/59 L 01/21/19 15:35 99.1 F 21 L 100 H 130/72 Intake and Output (Last 8hrs): Intake & Output 01/21/19 01/21/19 01/21/19 06:59 14:59 22:59 Intake Total 812 1048 Output Total 1000 Balance -188 1048 Weight 203 lb 4.8 oz Intake: IV 12 98 Intake, Piggyback 100 100 Tube Feeding 400 400 Free Water Flush 300 450 Output: Stool 1000 Other: # Voids Urine, Voided 1 - Physical Exam Head: Positive for: Atraumatic, Normocephalic Pupils: Positive for: PERRL Extroacular Muscles: Positive for: EOMI Conjunctiva: Positive for: Icteric Ears: Positive for: Normal Mouth: Positive for: Moist Mucous Membranes Nose (External): Positive for: Atraumatic Respiratory/Chest: Positive for: Clear to Auscultation, Good Air Exchange Cardiovascular: Positive for: Regular Rate and Rhythm Abdomen: Positive for: Normal Bowel Sounds. Negative for: Tenderness, Distention Upper Extremity: Positive for: Edema, Swelling (b/l upper extremities swelling and edema, 2+) Lower Extremity: Positive for: Edema Psychiatric: Negative for: Alert - Medications Active Medications: Active Medications Generic Name Dose Route Start Last Admin Trade Name Freq PRN Reason Stop Dose Admin Acetaminophen 650 mg 01/18/19 13:39 Tylenol 650mg/20.3ml Solution Ud NG Q6 PRN for temp>100.4 deg f Acetylcysteine 2 ml 01/17/19 20:00 01/21/19 08:36 Acetylcysteine 20% INH 2 ml RBID JOANNA Administration Albuterol Sulfate 2.5 mg 01/19/19 20:00 01/21/19 08:36 Albuterol 0.083% Inhal Mana (2.5 Mg/3 Ml) Ud INH 2.5 mg RBID JOANNA Administration Carvedilol 6.25 mg 01/06/19 21:00 01/21/19 08:44 Coreg NG Not Given Q12 JOANNA Cilostazol 50 mg 01/06/19 10:30 01/07/19 10:22 Pletal PO Not Given Q12 JOANNA Folic Acid 1 mg 01/10/19 09:00 01/21/19 09:50 Folic Acid GT 1 mg DAILY JOANNA Administration Hydralazine HCl 25 mg 01/12/19 13:00 01/21/19 16:08 Apresoline PO 25 mg TID JOANNA Administration Meropenem 1 gm/ Sodium 100 mls @ 100 mls/hr 01/18/19 17:15 01/21/19 16:09 Chloride IVPB 100 mls/hr Q8 JOANNA Administration Protocol Lactulose 20 gm 01/13/19 06:15 01/21/19 16:00 Enulose GT 20 gm Q4H JOANNA Administration Levothyroxine Sodium 50 mcg 01/09/19 06:30 01/21/19 06:38 Synthroid PO 50 mcg DAILY@0630 JOANNA Administration Pantoprazole Sodium 40 mg 01/07/19 13:15 01/21/19 10:10 Protonix Susp NG 40 mg DAILY JOANNA Administration Rifaximin 550 mg 01/11/19 17:00 01/21/19 16:10 Xifaxan PO 550 mg BID JOANNA Administration Protocol Thiamine HCl 100 mg 01/10/19 09:00 01/21/19 10:13 Vitamin B1 Tab GT 100 mg DAILY JOANNA Administration - Patient Studies Lab Studies: Microbiology Studies 01/18/19 12:20 Blood Culture - Preliminary Blood-Venous NO GROWTH AFTER 3 DAYS 01/15/19 18:40 Blood Culture - Final Blood NO GROWTH AFTER 5 DAYS Gram Stain - Final TEST NOT PERFORMED 01/15/19 17:45 Blood Culture - Final Blood NO GROWTH AFTER 5 DAYS Gram Stain - Final TEST NOT PERFORMED 01/18/19 17:39 Blood Culture - Preliminary Blood-Venous NO GROWTH AFTER 48 HOURS Lab Studies 01/21/19 01/21/19 01/21/19 Range/Units 14:42 11:34 10:01 WBC (4.8-10.8) K/uL RBC (4.40-5.90) Mil/uL Hgb (12.0-18.0) g/dL Hct (35.0-51.0) % MCV (80.0-94.0) fl MCH (27.0-31.0) pg MCHC (33.0-37.0) g/dL RDW (11.5-14.5) % Plt Count (130-400) K/uL MPV (7.2-11.7) fl Neut % (Auto) (50.0-75.0) % Lymph % (Auto) (20.0-40.0) % Coffey % (Auto) (0.0-10.0) % Eos % (Auto) (0.0-4.0) % Baso % (Auto) (0.0-2.0) % Neut # (Auto) (1.8-7.0) K/uL Lymph # (Auto) (1.0-4.3) K/uL Coffey # (Auto) (0.0-0.8) K/uL Eos # (Auto) (0.0-0.7) K/uL Baso # (Auto) (0.0-0.2) K/uL Sodium (132-148) mmol/l Potassium (3.6-5.0) MMOL/L Chloride (98-107) mmol/L Carbon Dioxide (22-30) mmol/L Anion Gap (10-20) BUN (9-20) mg/dl Creatinine (0.8-1.5) mg/dl Est GFR ( Amer) Est GFR (Non-Af Amer) POC Glucose (mg/dL) 207 H 209 H 203 H (65-110) mg/dL Random Glucose (75-110) mg/dL Calcium (8.4-10.2) mg/dL Magnesium (1.6-2.3) MG/DL Total Bilirubin (0.2-1.3) mg/dl AST (17-59) U/L ALT (21-72) U/L Alkaline Phosphatase (38-126) U/L Total Protein (6.3-8.2) G/DL Albumin (3.5-5.0) g/dL Globulin (2.2-3.9) gm/dL Albumin/Globulin Ratio (1.0-2.1) 01/21/19 01/21/19 01/21/19 Range/Units 09:03 08:02 06:56 WBC (4.8-10.8) K/uL RBC (4.40-5.90) Mil/uL Hgb (12.0-18.0) g/dL Hct (35.0-51.0) % MCV (80.0-94.0) fl MCH (27.0-31.0) pg MCHC (33.0-37.0) g/dL RDW (11.5-14.5) % Plt Count (130-400) K/uL MPV (7.2-11.7) fl Neut % (Auto) (50.0-75.0) % Lymph % (Auto) (20.0-40.0) % Coffey % (Auto) (0.0-10.0) % Eos % (Auto) (0.0-4.0) % Baso % (Auto) (0.0-2.0) % Neut # (Auto) (1.8-7.0) K/uL Lymph # (Auto) (1.0-4.3) K/uL Coffey # (Auto) (0.0-0.8) K/uL Eos # (Auto) (0.0-0.7) K/uL Baso # (Auto) (0.0-0.2) K/uL Sodium (132-148) mmol/l Potassium (3.6-5.0) MMOL/L Chloride (98-107) mmol/L Carbon Dioxide (22-30) mmol/L Anion Gap (10-20) BUN (9-20) mg/dl Creatinine (0.8-1.5) mg/dl Est GFR ( Amer) Est GFR (Non-Af Amer) POC Glucose (mg/dL) 207 H 226 H 246 H (65-110) mg/dL Random Glucose (75-110) mg/dL Calcium (8.4-10.2) mg/dL Magnesium (1.6-2.3) MG/DL Total Bilirubin (0.2-1.3) mg/dl AST (17-59) U/L ALT (21-72) U/L Alkaline Phosphatase (38-126) U/L Total Protein (6.3-8.2) G/DL Albumin (3.5-5.0) g/dL Globulin (2.2-3.9) gm/dL Albumin/Globulin Ratio (1.0-2.1) 01/21/19 01/21/19 01/21/19 Range/Units 06:00 05:19 05:19 WBC 9.1 (4.8-10.8) K/uL RBC 2.94 L (4.40-5.90) Mil/uL Hgb 11.4 L (12.0-18.0) g/dL Hct 33.7 L (35.0-51.0) % MCV 114.4 H (80.0-94.0) fl MCH 38.7 H (27.0-31.0) pg MCHC 33.8 (33.0-37.0) g/dL RDW 17.6 H (11.5-14.5) % Plt Count 133 (130-400) K/uL MPV 10.3 (7.2-11.7) fl Neut % (Auto) 80.9 H (50.0-75.0) % Lymph % (Auto) 7.0 L (20.0-40.0) % Coffey % (Auto) 10.1 H (0.0-10.0) % Eos % (Auto) 1.7 (0.0-4.0) % Baso % (Auto) 0.3 (0.0-2.0) % Neut # (Auto) 7.4 H (1.8-7.0) K/uL Lymph # (Auto) 0.6 L (1.0-4.3) K/uL Coffey # (Auto) 0.9 H (0.0-0.8) K/uL Eos # (Auto) 0.2 (0.0-0.7) K/uL Baso # (Auto) 0.0 (0.0-0.2) K/uL Sodium 150 H (132-148) mmol/l Potassium 3.9 (3.6-5.0) MMOL/L Chloride 119 H (98-107) mmol/L Carbon Dioxide 29 (22-30) mmol/L Anion Gap 6 L (10-20) BUN 60 H (9-20) mg/dl Creatinine 1.1 (0.8-1.5) mg/dl Est GFR ( Amer) > 60 Est GFR (Non-Af Amer) > 60 POC Glucose (mg/dL) 214 H (65-110) mg/dL Random Glucose 199 H (75-110) mg/dL Calcium 8.6 (8.4-10.2) mg/dL Magnesium 3.3 H (1.6-2.3) MG/DL Total Bilirubin 1.7 H (0.2-1.3) mg/dl AST 99 H D (17-59) U/L ALT 56 (21-72) U/L Alkaline Phosphatase 333 H (38-126) U/L Total Protein 5.7 L (6.3-8.2) G/DL Albumin 2.0 L (3.5-5.0) g/dL Globulin 3.8 (2.2-3.9) gm/dL Albumin/Globulin Ratio 0.5 L (1.0-2.1) 01/21/19 01/21/19 01/21/19 Range/Units 05:01 04:05 02:59 WBC (4.8-10.8) K/uL RBC (4.40-5.90) Mil/uL Hgb (12.0-18.0) g/dL Hct (35.0-51.0) % MCV (80.0-94.0) fl MCH (27.0-31.0) pg MCHC (33.0-37.0) g/dL RDW (11.5-14.5) % Plt Count (130-400) K/uL MPV (7.2-11.7) fl Neut % (Auto) (50.0-75.0) % Lymph % (Auto) (20.0-40.0) % Coffey % (Auto) (0.0-10.0) % Eos % (Auto) (0.0-4.0) % Baso % (Auto) (0.0-2.0) % Neut # (Auto) (1.8-7.0) K/uL Lymph # (Auto) (1.0-4.3) K/uL Coffey # (Auto) (0.0-0.8) K/uL Eos # (Auto) (0.0-0.7) K/uL Baso # (Auto) (0.0-0.2) K/uL Sodium (132-148) mmol/l Potassium (3.6-5.0) MMOL/L Chloride (98-107) mmol/L Carbon Dioxide (22-30) mmol/L Anion Gap (10-20) BUN (9-20) mg/dl Creatinine (0.8-1.5) mg/dl Est GFR ( Amer) Est GFR (Non-Af Amer) POC Glucose (mg/dL) 206 H 219 H 242 H (65-110) mg/dL Random Glucose (75-110) mg/dL Calcium (8.4-10.2) mg/dL Magnesium (1.6-2.3) MG/DL Total Bilirubin (0.2-1.3) mg/dl AST (17-59) U/L ALT (21-72) U/L Alkaline Phosphatase (38-126) U/L Total Protein (6.3-8.2) G/DL Albumin (3.5-5.0) g/dL Globulin (2.2-3.9) gm/dL Albumin/Globulin Ratio (1.0-2.1) 01/21/19 01/21/19 01/20/19 Range/Units 02:00 01:01 23:57 WBC (4.8-10.8) K/uL RBC (4.40-5.90) Mil/uL Hgb (12.0-18.0) g/dL Hct (35.0-51.0) % MCV (80.0-94.0) fl MCH (27.0-31.0) pg MCHC (33.0-37.0) g/dL RDW (11.5-14.5) % Plt Count (130-400) K/uL MPV (7.2-11.7) fl Neut % (Auto) (50.0-75.0) % Lymph % (Auto) (20.0-40.0) % Coffey % (Auto) (0.0-10.0) % Eos % (Auto) (0.0-4.0) % Baso % (Auto) (0.0-2.0) % Neut # (Auto) (1.8-7.0) K/uL Lymph # (Auto) (1.0-4.3) K/uL Coffey # (Auto) (0.0-0.8) K/uL Eos # (Auto) (0.0-0.7) K/uL Baso # (Auto) (0.0-0.2) K/uL Sodium (132-148) mmol/l Potassium (3.6-5.0) MMOL/L Chloride (98-107) mmol/L Carbon Dioxide (22-30) mmol/L Anion Gap (10-20) BUN (9-20) mg/dl Creatinine (0.8-1.5) mg/dl Est GFR ( Amer) Est GFR (Non-Af Amer) POC Glucose (mg/dL) 258 H 234 H 185 H (65-110) mg/dL Random Glucose (75-110) mg/dL Calcium (8.4-10.2) mg/dL Magnesium (1.6-2.3) MG/DL Total Bilirubin (0.2-1.3) mg/dl AST (17-59) U/L ALT (21-72) U/L Alkaline Phosphatase (38-126) U/L Total Protein (6.3-8.2) G/DL Albumin (3.5-5.0) g/dL Globulin (2.2-3.9) gm/dL Albumin/Globulin Ratio (1.0-2.1) 01/20/19 01/20/19 01/20/19 Range/Units 23:00 22:03 21:01 WBC (4.8-10.8) K/uL RBC (4.40-5.90) Mil/uL Hgb (12.0-18.0) g/dL Hct (35.0-51.0) % MCV (80.0-94.0) fl MCH (27.0-31.0) pg MCHC (33.0-37.0) g/dL RDW (11.5-14.5) % Plt Count (130-400) K/uL MPV (7.2-11.7) fl Neut % (Auto) (50.0-75.0) % Lymph % (Auto) (20.0-40.0) % Coffey % (Auto) (0.0-10.0) % Eos % (Auto) (0.0-4.0) % Baso % (Auto) (0.0-2.0) % Neut # (Auto) (1.8-7.0) K/uL Lymph # (Auto) (1.0-4.3) K/uL Coffey # (Auto) (0.0-0.8) K/uL Eos # (Auto) (0.0-0.7) K/uL Baso # (Auto) (0.0-0.2) K/uL Sodium (132-148) mmol/l Potassium (3.6-5.0) MMOL/L Chloride (98-107) mmol/L Carbon Dioxide (22-30) mmol/L Anion Gap (10-20) BUN (9-20) mg/dl Creatinine (0.8-1.5) mg/dl Est GFR ( Amer) Est GFR (Non-Af Amer) POC Glucose (mg/dL) 178 H 257 H 228 H (65-110) mg/dL Random Glucose (75-110) mg/dL Calcium (8.4-10.2) mg/dL Magnesium (1.6-2.3) MG/DL Total Bilirubin (0.2-1.3) mg/dl AST (17-59) U/L ALT (21-72) U/L Alkaline Phosphatase (38-126) U/L Total Protein (6.3-8.2) G/DL Albumin (3.5-5.0) g/dL Globulin (2.2-3.9) gm/dL Albumin/Globulin Ratio (1.0-2.1) 01/20/19 01/20/19 01/20/19 Range/Units 20:03 18:57 18:02 WBC (4.8-10.8) K/uL RBC (4.40-5.90) Mil/uL Hgb (12.0-18.0) g/dL Hct (35.0-51.0) % MCV (80.0-94.0) fl MCH (27.0-31.0) pg MCHC (33.0-37.0) g/dL RDW (11.5-14.5) % Plt Count (130-400) K/uL MPV (7.2-11.7) fl Neut % (Auto) (50.0-75.0) % Lymph % (Auto) (20.0-40.0) % Coffey % (Auto) (0.0-10.0) % Eos % (Auto) (0.0-4.0) % Baso % (Auto) (0.0-2.0) % Neut # (Auto) (1.8-7.0) K/uL Lymph # (Auto) (1.0-4.3) K/uL Coffey # (Auto) (0.0-0.8) K/uL Eos # (Auto) (0.0-0.7) K/uL Baso # (Auto) (0.0-0.2) K/uL Sodium (132-148) mmol/l Potassium (3.6-5.0) MMOL/L Chloride (98-107) mmol/L Carbon Dioxide (22-30) mmol/L Anion Gap (10-20) BUN (9-20) mg/dl Creatinine (0.8-1.5) mg/dl Est GFR ( Amer) Est GFR (Non-Af Amer) POC Glucose (mg/dL) 245 H 239 H 238 H (65-110) mg/dL Random Glucose (75-110) mg/dL Calcium (8.4-10.2) mg/dL Magnesium (1.6-2.3) MG/DL Total Bilirubin (0.2-1.3) mg/dl AST (17-59) U/L ALT (21-72) U/L Alkaline Phosphatase (38-126) U/L Total Protein (6.3-8.2) G/DL Albumin (3.5-5.0) g/dL Globulin (2.2-3.9) gm/dL Albumin/Globulin Ratio (1.0-2.1) 01/20/19 01/20/19 Range/Units 17:09 16:03 WBC (4.8-10.8) K/uL RBC (4.40-5.90) Mil/uL Hgb (12.0-18.0) g/dL Hct (35.0-51.0) % MCV (80.0-94.0) fl MCH (27.0-31.0) pg MCHC (33.0-37.0) g/dL RDW (11.5-14.5) % Plt Count (130-400) K/uL MPV (7.2-11.7) fl Neut % (Auto) (50.0-75.0) % Lymph % (Auto) (20.0-40.0) % Coffey % (Auto) (0.0-10.0) % Eos % (Auto) (0.0-4.0) % Baso % (Auto) (0.0-2.0) % Neut # (Auto) (1.8-7.0) K/uL Lymph # (Auto) (1.0-4.3) K/uL Coffey # (Auto) (0.0-0.8) K/uL Eos # (Auto) (0.0-0.7) K/uL Baso # (Auto) (0.0-0.2) K/uL Sodium (132-148) mmol/l Potassium (3.6-5.0) MMOL/L Chloride (98-107) mmol/L Carbon Dioxide (22-30) mmol/L Anion Gap (10-20) BUN (9-20) mg/dl Creatinine (0.8-1.5) mg/dl Est GFR ( Amer) Est GFR (Non-Af Amer) POC Glucose (mg/dL) 244 H 233 H (65-110) mg/dL Random Glucose (75-110) mg/dL Calcium (8.4-10.2) mg/dL Magnesium (1.6-2.3) MG/DL Total Bilirubin (0.2-1.3) mg/dl AST (17-59) U/L ALT (21-72) U/L Alkaline Phosphatase (38-126) U/L Total Protein (6.3-8.2) G/DL Albumin (3.5-5.0) g/dL Globulin (2.2-3.9) gm/dL Albumin/Globulin Ratio (1.0-2.1) Laboratory Results - last 24 hr 01/20/19 01/20/19 01/20/19 16:03 17:09 18:02 WBC RBC Hgb Hct MCV MCH MCHC RDW Plt Count MPV Neut % (Auto) Lymph % (Auto) Coffey % (Auto) Eos % (Auto) Baso % (Auto) Neut # (Auto) Lymph # (Auto) Coffey # (Auto) Eos # (Auto) Baso # (Auto) Sodium Potassium Chloride Carbon Dioxide Anion Gap BUN Creatinine Est GFR ( Amer) Est GFR (Non-Af Amer) POC Glucose (mg/dL) 233 H 244 H 238 H Random Glucose Calcium Magnesium Total Bilirubin AST ALT Alkaline Phosphatase Total Protein Albumin Globulin Albumin/Globulin Ratio 01/20/19 01/20/19 01/20/19 18:57 20:03 21:01 WBC RBC Hgb Hct MCV MCH MCHC RDW Plt Count MPV Neut % (Auto) Lymph % (Auto) Coffey % (Auto) Eos % (Auto) Baso % (Auto) Neut # (Auto) Lymph # (Auto) Coffey # (Auto) Eos # (Auto) Baso # (Auto) Sodium Potassium Chloride Carbon Dioxide Anion Gap BUN Creatinine Est GFR ( Amer) Est GFR (Non-Af Amer) POC Glucose (mg/dL) 239 H 245 H 228 H Random Glucose Calcium Magnesium Total Bilirubin AST ALT Alkaline Phosphatase Total Protein Albumin Globulin Albumin/Globulin Ratio 01/20/19 01/20/19 01/20/19 22:03 23:00 23:57 WBC RBC Hgb Hct MCV MCH MCHC RDW Plt Count MPV Neut % (Auto) Lymph % (Auto) Coffey % (Auto) Eos % (Auto) Baso % (Auto) Neut # (Auto) Lymph # (Auto) Coffey # (Auto) Eos # (Auto) Baso # (Auto) Sodium Potassium Chloride Carbon Dioxide Anion Gap BUN Creatinine Est GFR ( Amer) Est GFR (Non-Af Amer) POC Glucose (mg/dL) 257 H 178 H 185 H Random Glucose Calcium Magnesium Total Bilirubin AST ALT Alkaline Phosphatase Total Protein Albumin Globulin Albumin/Globulin Ratio 01/21/19 01/21/19 01/21/19 01:01 02:00 02:59 WBC RBC Hgb Hct MCV MCH MCHC RDW Plt Count MPV Neut % (Auto) Lymph % (Auto) Coffey % (Auto) Eos % (Auto) Baso % (Auto) Neut # (Auto) Lymph # (Auto) Coffey # (Auto) Eos # (Auto) Baso # (Auto) Sodium Potassium Chloride Carbon Dioxide Anion Gap BUN Creatinine Est GFR ( Amer) Est GFR (Non-Af Amer) POC Glucose (mg/dL) 234 H 258 H 242 H Random Glucose Calcium Magnesium Total Bilirubin AST ALT Alkaline Phosphatase Total Protein Albumin Globulin Albumin/Globulin Ratio 01/21/19 01/21/19 01/21/19 04:05 05:01 05:19 WBC 9.1 RBC 2.94 L Hgb 11.4 L Hct 33.7 L MCV 114.4 H MCH 38.7 H MCHC 33.8 RDW 17.6 H Plt Count 133 MPV 10.3 Neut % (Auto) 80.9 H Lymph % (Auto) 7.0 L Coffey % (Auto) 10.1 H Eos % (Auto) 1.7 Baso % (Auto) 0.3 Neut # (Auto) 7.4 H Lymph # (Auto) 0.6 L Coffey # (Auto) 0.9 H Eos # (Auto) 0.2 Baso # (Auto) 0.0 Sodium Potassium Chloride Carbon Dioxide Anion Gap BUN Creatinine Est GFR ( Amer) Est GFR (Non-Af Amer) POC Glucose (mg/dL) 219 H 206 H Random Glucose Calcium Magnesium Total Bilirubin AST ALT Alkaline Phosphatase Total Protein Albumin Globulin Albumin/Globulin Ratio 01/21/19 01/21/19 01/21/19 05:19 06:00 06:56 WBC RBC Hgb Hct MCV MCH MCHC RDW Plt Count MPV Neut % (Auto) Lymph % (Auto) Coffey % (Auto) Eos % (Auto) Baso % (Auto) Neut # (Auto) Lymph # (Auto) Coffey # (Auto) Eos # (Auto) Baso # (Auto) Sodium 150 H Potassium 3.9 Chloride 119 H Carbon Dioxide 29 Anion Gap 6 L BUN 60 H Creatinine 1.1 Est GFR ( Amer) > 60 Est GFR (Non-Af Amer) > 60 POC Glucose (mg/dL) 214 H 246 H Random Glucose 199 H Calcium 8.6 Magnesium 3.3 H Total Bilirubin 1.7 H AST 99 H D ALT 56 Alkaline Phosphatase 333 H Total Protein 5.7 L Albumin 2.0 L Globulin 3.8 Albumin/Globulin Ratio 0.5 L 01/21/19 01/21/19 01/21/19 08:02 09:03 10:01 WBC RBC Hgb Hct MCV MCH MCHC RDW Plt Count MPV Neut % (Auto) Lymph % (Auto) Coffey % (Auto) Eos % (Auto) Baso % (Auto) Neut # (Auto) Lymph # (Auto) Coffey # (Auto) Eos # (Auto) Baso # (Auto) Sodium Potassium Chloride Carbon Dioxide Anion Gap BUN Creatinine Est GFR ( Amer) Est GFR (Non-Af Amer) POC Glucose (mg/dL) 226 H 207 H 203 H Random Glucose Calcium Magnesium Total Bilirubin AST ALT Alkaline Phosphatase Total Protein Albumin Globulin Albumin/Globulin Ratio 01/21/19 01/21/19 11:34 14:42 WBC RBC Hgb Hct MCV MCH MCHC RDW Plt Count MPV Neut % (Auto) Lymph % (Auto) Coffey % (Auto) Eos % (Auto) Baso % (Auto) Neut # (Auto) Lymph # (Auto) Coffey # (Auto) Eos # (Auto) Baso # (Auto) Sodium Potassium Chloride Carbon Dioxide Anion Gap BUN Creatinine Est GFR ( Amer) Est GFR (Non-Af Amer) POC Glucose (mg/dL) 209 H 207 H Random Glucose Calcium Magnesium Total Bilirubin AST ALT Alkaline Phosphatase Total Protein Albumin Globulin Albumin/Globulin Ratio Fingerstick Blood Sugar Results: 207 Assessment/Plan (1) Acute respiratory failure Current Visit: Yes Status: Acute Priority: High Comment: Patient was orally intubated and mechanically ventilated due to altered mental status from hepatic encephalopathy and hyperammonemia He was successfully extubated yesterday Continue lactulose 20 gm q4h and rifaximin 550 mg BID; Mag citrate 300 mg given Frequent neuro check Maintain aspiration precaution Mucomyst q12 with albuterol for mucus plug Orgogastric Tube feeding Suplena at 50 cc/hr. (2) Hepatic encephalopathy Current Visit: Yes Status: Acute Priority: High Comment: Continued improvement of mental status c/w lactulose and rifaximin Magnesium citrate 300 cc PRN Frequent neuro check (3) Alcoholic cirrhosis of liver Current Visit: Yes Status: Acute Priority: High (4) Hyperammonemia Current Visit: Yes Status: Acute Priority: High Comment: Improving c/w lactulose and rifaximin (5) Thrombocytopenia Current Visit: Yes Status: Acute Priority: High Comment: Morning labs reviewed platelet count 49K, no signs of active bleeding, hemoglobin/Hct stable
--- NOTE | 2019-01-21 21:14 | CP.PCM.PN ---
Subjective - Date & Time of Evaluation Date of Evaluation: 01/17/19 Time of Evaluation: 12:00 - Subjective Subjective: Vented Objective - Vital Signs/Intake and Output Vital Signs (last 24 hours): Temp Pulse Resp BP Pulse Ox 98.2 F 83 27 H 132/72 100 01/21/19 20:00 01/21/19 20:56 01/21/19 20:00 01/21/19 20:56 01/21/19 20:00 Intake and Output: 01/21/19 01/22/19 18:59 06:59 Intake Total 1552 400 Balance 1552 400 - Medications Medications: Current Medications Acetaminophen (Tylenol 650mg/20.3ml Solution Ud) 650 mg NG Q6 PRN PRN Reason: for temp>100.4 deg f Acetylcysteine (Acetylcysteine 20%) 2 ml INH RBID [facility] Last Admin: 01/21/19 19:14 Dose: 2 ml Albuterol Sulfate (Albuterol 0.083% Inhal Mana (2.5 Mg/3 Ml) Ud) 2.5 mg INH RBID [facility] Last Admin: 01/21/19 19:14 Dose: 2.5 mg Carvedilol (Coreg) 6.25 mg NG Q12 [facility] Last Admin: 01/21/19 20:56 Dose: 6.25 mg Cilostazol (Pletal) 50 mg PO Q12 [facility] Last Admin: 01/07/19 10:22 Dose: Not Given Folic Acid (Folic Acid) 1 mg GT DAILY [facility] Last Admin: 01/21/19 09:50 Dose: 1 mg Hydralazine HCl (Apresoline) 25 mg PO TID [facility] Last Admin: 01/21/19 16:08 Dose: 25 mg Meropenem 1 gm/ Sodium (Chloride) 100 mls @ 100 mls/hr IVPB Q8 [facility]; Protocol Last Admin: 01/21/19 16:09 Dose: 100 mls/hr Lactulose (Enulose) 20 gm GT Q4H [facility] Last Admin: 01/21/19 17:43 Dose: Not Given Levothyroxine Sodium (Synthroid) 50 mcg PO DAILY@0630 [facility] Last Admin: 01/21/19 06:38 Dose: 50 mcg Pantoprazole Sodium (Protonix Susp) 40 mg NG DAILY [facility] Last Admin: 01/21/19 10:10 Dose: 40 mg Rifaximin (Xifaxan) 550 mg PO BID [facility]; Protocol Last Admin: 01/21/19 16:10 Dose: 550 mg Thiamine HCl (Vitamin B1 Tab) 100 mg GT DAILY [facility] Last Admin: 01/21/19 10:13 Dose: 100 mg - Labs Labs: 01/21/19 05:19 01/21/19 05:19 PT 16.1 Seconds (9.8-13.1) H 01/11/19 05:33 INR 1.4 01/11/19 05:33 APTT 32.9 Seconds (25.6-37.1) 01/11/19 05:33 - Head Exam Head Exam: ATRAUMATIC - Eye Exam Eye Exam: Normal appearance - ENT Exam ENT Exam: Mucous Membranes Dry - Respiratory Exam Respiratory Exam: Decreased Breath Sounds - Cardiovascular Exam Cardiovascular Exam: +S1, +S2 - GI/Abdominal Exam GI & Abdominal Exam: Normal Bowel Sounds Assessment and Plan (1) Thrombocytopenia Assessment & Plan: liver cirrhosis and splenic sequestration Status: Acute (2) Coagulopathy Assessment & Plan: liver disease nutritional component vit k and FFP PRN Status: Acute (3) Liver mass Assessment & Plan: ? HCC outpatient f/u with primary environmental health inspector Status: Acute
--- NOTE | 2019-01-21 21:15 | CP.PCM.PN ---
Subjective - Date & Time of Evaluation Date of Evaluation: 01/18/19 Time of Evaluation: 19:00 - Subjective Subjective: Vented Objective - Vital Signs/Intake and Output Vital Signs (last 24 hours): Temp Pulse Resp BP Pulse Ox 98.2 F 83 27 H 132/72 100 01/21/19 20:00 01/21/19 20:56 01/21/19 20:00 01/21/19 20:56 01/21/19 20:00 Intake and Output: 01/21/19 01/22/19 18:59 06:59 Intake Total 1552 400 Balance 1552 400 - Medications Medications: Current Medications Acetaminophen (Tylenol 650mg/20.3ml Solution Ud) 650 mg NG Q6 PRN PRN Reason: for temp>100.4 deg f Acetylcysteine (Acetylcysteine 20%) 2 ml INH RBID [facility] Last Admin: 01/21/19 19:14 Dose: 2 ml Albuterol Sulfate (Albuterol 0.083% Inhal Mana (2.5 Mg/3 Ml) Ud) 2.5 mg INH RBID [facility] Last Admin: 01/21/19 19:14 Dose: 2.5 mg Carvedilol (Coreg) 6.25 mg NG Q12 [facility] Last Admin: 01/21/19 20:56 Dose: 6.25 mg Cilostazol (Pletal) 50 mg PO Q12 [facility] Last Admin: 01/07/19 10:22 Dose: Not Given Folic Acid (Folic Acid) 1 mg GT DAILY [facility] Last Admin: 01/21/19 09:50 Dose: 1 mg Hydralazine HCl (Apresoline) 25 mg PO TID [facility] Last Admin: 01/21/19 16:08 Dose: 25 mg Meropenem 1 gm/ Sodium (Chloride) 100 mls @ 100 mls/hr IVPB Q8 [facility]; Protocol Last Admin: 01/21/19 16:09 Dose: 100 mls/hr Lactulose (Enulose) 20 gm GT Q4H [facility] Last Admin: 01/21/19 17:43 Dose: Not Given Levothyroxine Sodium (Synthroid) 50 mcg PO DAILY@0630 [facility] Last Admin: 01/21/19 06:38 Dose: 50 mcg Pantoprazole Sodium (Protonix Susp) 40 mg NG DAILY [facility] Last Admin: 01/21/19 10:10 Dose: 40 mg Rifaximin (Xifaxan) 550 mg PO BID [facility]; Protocol Last Admin: 01/21/19 16:10 Dose: 550 mg Thiamine HCl (Vitamin B1 Tab) 100 mg GT DAILY [facility] Last Admin: 01/21/19 10:13 Dose: 100 mg - Labs Labs: 01/21/19 05:19 01/21/19 05:19 PT 16.1 Seconds (9.8-13.1) H 01/11/19 05:33 INR 1.4 01/11/19 05:33 APTT 32.9 Seconds (25.6-37.1) 01/11/19 05:33 - Head Exam Head Exam: ATRAUMATIC - Eye Exam Eye Exam: Normal appearance - ENT Exam ENT Exam: Mucous Membranes Dry - Respiratory Exam Respiratory Exam: Decreased Breath Sounds - Cardiovascular Exam Cardiovascular Exam: +S1, +S2 - GI/Abdominal Exam GI & Abdominal Exam: Normal Bowel Sounds Assessment and Plan (1) Thrombocytopenia Assessment & Plan: liver cirrhosis and splenic sequestration Status: Acute (2) Coagulopathy Assessment & Plan: liver disease nutritional component vit k and FFP PRN Status: Acute (3) Liver mass Assessment & Plan: ? HCC outpatient f/u with primary cartridge filler Status: Acute
--- NOTE | 2019-01-21 21:17 | CP.PCM.PN ---
Subjective - Date & Time of Evaluation Date of Evaluation: 01/21/19 Objective - Vital Signs/Intake and Output Vital Signs (last 24 hours): Temp Pulse Resp BP Pulse Ox 98.2 F 83 27 H 132/72 100 01/21/19 20:00 01/21/19 20:56 01/21/19 20:00 01/21/19 20:56 01/21/19 20:00 Intake and Output: 01/21/19 01/22/19 18:59 06:59 Intake Total 1552 400 Balance 1552 400 - Medications Medications: Current Medications Acetaminophen (Tylenol 650mg/20.3ml Solution Ud) 650 mg NG Q6 PRN PRN Reason: for temp>100.4 deg f Acetylcysteine (Acetylcysteine 20%) 2 ml INH RBID [facility] Last Admin: 01/21/19 19:14 Dose: 2 ml Albuterol Sulfate (Albuterol 0.083% Inhal Mana (2.5 Mg/3 Ml) Ud) 2.5 mg INH RBID [facility] Last Admin: 01/21/19 19:14 Dose: 2.5 mg Carvedilol (Coreg) 6.25 mg NG Q12 [facility] Last Admin: 01/21/19 20:56 Dose: 6.25 mg Cilostazol (Pletal) 50 mg PO Q12 [facility] Last Admin: 01/07/19 10:22 Dose: Not Given Folic Acid (Folic Acid) 1 mg GT DAILY [facility] Last Admin: 01/21/19 09:50 Dose: 1 mg Hydralazine HCl (Apresoline) 25 mg PO TID [facility] Last Admin: 01/21/19 16:08 Dose: 25 mg Meropenem 1 gm/ Sodium (Chloride) 100 mls @ 100 mls/hr IVPB Q8 [facility]; Protocol Last Admin: 01/21/19 16:09 Dose: 100 mls/hr Lactulose (Enulose) 20 gm GT Q4H [facility] Last Admin: 01/21/19 21:16 Dose: 20 gm Levothyroxine Sodium (Synthroid) 50 mcg PO DAILY@0630 [facility] Last Admin: 01/21/19 06:38 Dose: 50 mcg Pantoprazole Sodium (Protonix Susp) 40 mg NG DAILY [facility] Last Admin: 01/21/19 10:10 Dose: 40 mg Rifaximin (Xifaxan) 550 mg PO BID [facility]; Protocol Last Admin: 01/21/19 16:10 Dose: 550 mg Thiamine HCl (Vitamin B1 Tab) 100 mg GT DAILY [facility] Last Admin: 01/21/19 10:13 Dose: 100 mg - Labs Labs: 01/21/19 05:19 01/21/19 05:19 PT 16.1 Seconds (9.8-13.1) H 01/11/19 05:33 INR 1.4 01/11/19 05:33 APTT 32.9 Seconds (25.6-37.1) 01/11/19 05:33 Assessment and Plan (1) Acute respiratory failure Status: Acute (2) Altered mental status Status: Acute (3) Alcoholic cirrhosis of liver Status: Acute (4) Hepatic encephalopathy Status: Acute (5) DM type 2 (diabetes mellitus, type 2) Status: Acute
--- NOTE | 2019-01-21 21:17 | CP.PCM.PN ---
Subjective - Date & Time of Evaluation Date of Evaluation: 01/20/19 Objective - Vital Signs/Intake and Output Vital Signs (last 24 hours): Temp Pulse Resp BP Pulse Ox 98.2 F 83 27 H 132/72 100 01/21/19 20:00 01/21/19 20:56 01/21/19 20:00 01/21/19 20:56 01/21/19 20:00 Intake and Output: 01/21/19 01/22/19 18:59 06:59 Intake Total 1552 400 Balance 1552 400 - Medications Medications: Current Medications Acetaminophen (Tylenol 650mg/20.3ml Solution Ud) 650 mg NG Q6 PRN PRN Reason: for temp>100.4 deg f Acetylcysteine (Acetylcysteine 20%) 2 ml INH RBID [facility] Last Admin: 01/21/19 19:14 Dose: 2 ml Albuterol Sulfate (Albuterol 0.083% Inhal Mana (2.5 Mg/3 Ml) Ud) 2.5 mg INH RBID [facility] Last Admin: 01/21/19 19:14 Dose: 2.5 mg Carvedilol (Coreg) 6.25 mg NG Q12 [facility] Last Admin: 01/21/19 20:56 Dose: 6.25 mg Cilostazol (Pletal) 50 mg PO Q12 [facility] Last Admin: 01/07/19 10:22 Dose: Not Given Folic Acid (Folic Acid) 1 mg GT DAILY [facility] Last Admin: 01/21/19 09:50 Dose: 1 mg Hydralazine HCl (Apresoline) 25 mg PO TID [facility] Last Admin: 01/21/19 16:08 Dose: 25 mg Meropenem 1 gm/ Sodium (Chloride) 100 mls @ 100 mls/hr IVPB Q8 [facility]; Protocol Last Admin: 01/21/19 16:09 Dose: 100 mls/hr Lactulose (Enulose) 20 gm GT Q4H [facility] Last Admin: 01/21/19 17:43 Dose: Not Given Levothyroxine Sodium (Synthroid) 50 mcg PO DAILY@0630 [facility] Last Admin: 01/21/19 06:38 Dose: 50 mcg Pantoprazole Sodium (Protonix Susp) 40 mg NG DAILY [facility] Last Admin: 01/21/19 10:10 Dose: 40 mg Rifaximin (Xifaxan) 550 mg PO BID [facility]; Protocol Last Admin: 01/21/19 16:10 Dose: 550 mg Thiamine HCl (Vitamin B1 Tab) 100 mg GT DAILY [facility] Last Admin: 01/21/19 10:13 Dose: 100 mg - Labs Labs: 01/21/19 05:19 01/21/19 05:19 PT 16.1 Seconds (9.8-13.1) H 01/11/19 05:33 INR 1.4 01/11/19 05:33 APTT 32.9 Seconds (25.6-37.1) 01/11/19 05:33 Assessment and Plan (1) Acute respiratory failure Status: Acute (2) Altered mental status Status: Acute (3) Alcoholic cirrhosis of liver Status: Acute (4) Hepatic encephalopathy Status: Acute (5) DM type 2 (diabetes mellitus, type 2) Status: Acute
--- NOTE | 2019-01-21 21:17 | CP.PCM.PN ---
Subjective - Date & Time of Evaluation Date of Evaluation: 01/19/19 Time of Evaluation: 17:00 - Subjective Subjective: Vented Objective - Vital Signs/Intake and Output Vital Signs (last 24 hours): Temp Pulse Resp BP Pulse Ox 98.2 F 83 27 H 132/72 100 01/21/19 20:00 01/21/19 20:56 01/21/19 20:00 01/21/19 20:56 01/21/19 20:00 Intake and Output: 01/21/19 01/22/19 18:59 06:59 Intake Total 1552 400 Balance 1552 400 - Medications Medications: Current Medications Acetaminophen (Tylenol 650mg/20.3ml Solution Ud) 650 mg NG Q6 PRN PRN Reason: for temp>100.4 deg f Acetylcysteine (Acetylcysteine 20%) 2 ml INH RBID [facility] Last Admin: 01/21/19 19:14 Dose: 2 ml Albuterol Sulfate (Albuterol 0.083% Inhal Mana (2.5 Mg/3 Ml) Ud) 2.5 mg INH RBID [facility] Last Admin: 01/21/19 19:14 Dose: 2.5 mg Carvedilol (Coreg) 6.25 mg NG Q12 [facility] Last Admin: 01/21/19 20:56 Dose: 6.25 mg Cilostazol (Pletal) 50 mg PO Q12 [facility] Last Admin: 01/07/19 10:22 Dose: Not Given Folic Acid (Folic Acid) 1 mg GT DAILY [facility] Last Admin: 01/21/19 09:50 Dose: 1 mg Hydralazine HCl (Apresoline) 25 mg PO TID [facility] Last Admin: 01/21/19 16:08 Dose: 25 mg Meropenem 1 gm/ Sodium (Chloride) 100 mls @ 100 mls/hr IVPB Q8 [facility]; Protocol Last Admin: 01/21/19 16:09 Dose: 100 mls/hr Lactulose (Enulose) 20 gm GT Q4H [facility] Last Admin: 01/21/19 17:43 Dose: Not Given Levothyroxine Sodium (Synthroid) 50 mcg PO DAILY@0630 [facility] Last Admin: 01/21/19 06:38 Dose: 50 mcg Pantoprazole Sodium (Protonix Susp) 40 mg NG DAILY [facility] Last Admin: 01/21/19 10:10 Dose: 40 mg Rifaximin (Xifaxan) 550 mg PO BID [facility]; Protocol Last Admin: 01/21/19 16:10 Dose: 550 mg Thiamine HCl (Vitamin B1 Tab) 100 mg GT DAILY [facility] Last Admin: 01/21/19 10:13 Dose: 100 mg - Labs Labs: 01/21/19 05:19 01/21/19 05:19 PT 16.1 Seconds (9.8-13.1) H 01/11/19 05:33 INR 1.4 01/11/19 05:33 APTT 32.9 Seconds (25.6-37.1) 01/11/19 05:33 - Head Exam Head Exam: ATRAUMATIC - Eye Exam Eye Exam: Normal appearance - ENT Exam ENT Exam: Mucous Membranes Dry - Respiratory Exam Respiratory Exam: Decreased Breath Sounds - Cardiovascular Exam Cardiovascular Exam: +S1, +S2 - GI/Abdominal Exam GI & Abdominal Exam: Normal Bowel Sounds Assessment and Plan (1) Thrombocytopenia Assessment & Plan: liver cirrhosis and splenic sequestration Status: Acute (2) Coagulopathy Assessment & Plan: liver disease nutritional component vit k and FFP PRN Status: Acute (3) Liver mass Assessment & Plan: ? HCC outpatient f/u with primary customer advocate Status: Acute
--- NOTE | 2019-01-21 21:18 | CP.PCM.PN ---
Subjective - Date & Time of Evaluation Date of Evaluation: 01/21/19 Time of Evaluation: 20:00 - Subjective Subjective: Vented Objective - Vital Signs/Intake and Output Vital Signs (last 24 hours): Temp Pulse Resp BP Pulse Ox 98.2 F 83 27 H 132/72 100 01/21/19 20:00 01/21/19 20:56 01/21/19 20:00 01/21/19 20:56 01/21/19 20:00 Intake and Output: 01/21/19 01/22/19 18:59 06:59 Intake Total 1552 400 Balance 1552 400 - Medications Medications: Current Medications Acetaminophen (Tylenol 650mg/20.3ml Solution Ud) 650 mg NG Q6 PRN PRN Reason: for temp>100.4 deg f Acetylcysteine (Acetylcysteine 20%) 2 ml INH RBID [facility] Last Admin: 01/21/19 19:14 Dose: 2 ml Albuterol Sulfate (Albuterol 0.083% Inhal Mana (2.5 Mg/3 Ml) Ud) 2.5 mg INH RBID [facility] Last Admin: 01/21/19 19:14 Dose: 2.5 mg Carvedilol (Coreg) 6.25 mg NG Q12 [facility] Last Admin: 01/21/19 20:56 Dose: 6.25 mg Cilostazol (Pletal) 50 mg PO Q12 [facility] Last Admin: 01/07/19 10:22 Dose: Not Given Folic Acid (Folic Acid) 1 mg GT DAILY [facility] Last Admin: 01/21/19 09:50 Dose: 1 mg Hydralazine HCl (Apresoline) 25 mg PO TID [facility] Last Admin: 01/21/19 16:08 Dose: 25 mg Meropenem 1 gm/ Sodium (Chloride) 100 mls @ 100 mls/hr IVPB Q8 [facility]; Protocol Last Admin: 01/21/19 16:09 Dose: 100 mls/hr Lactulose (Enulose) 20 gm GT Q4H [facility] Last Admin: 01/21/19 21:16 Dose: 20 gm Levothyroxine Sodium (Synthroid) 50 mcg PO DAILY@0630 [facility] Last Admin: 01/21/19 06:38 Dose: 50 mcg Pantoprazole Sodium (Protonix Susp) 40 mg NG DAILY [facility] Last Admin: 01/21/19 10:10 Dose: 40 mg Rifaximin (Xifaxan) 550 mg PO BID [facility]; Protocol Last Admin: 01/21/19 16:10 Dose: 550 mg Thiamine HCl (Vitamin B1 Tab) 100 mg GT DAILY [facility] Last Admin: 01/21/19 10:13 Dose: 100 mg - Labs Labs: 01/21/19 05:19 01/21/19 05:19 PT 16.1 Seconds (9.8-13.1) H 01/11/19 05:33 INR 1.4 01/11/19 05:33 APTT 32.9 Seconds (25.6-37.1) 01/11/19 05:33 - Head Exam Head Exam: ATRAUMATIC - Eye Exam Eye Exam: Normal appearance - ENT Exam ENT Exam: Mucous Membranes Dry - Respiratory Exam Respiratory Exam: Decreased Breath Sounds - Cardiovascular Exam Cardiovascular Exam: +S1, +S2 - GI/Abdominal Exam GI & Abdominal Exam: Normal Bowel Sounds Assessment and Plan (1) Thrombocytopenia Assessment & Plan: liver cirrhosis and splenic sequestration Status: Acute (2) Coagulopathy Assessment & Plan: liver disease nutritional component vit k and FFP PRN Status: Acute (3) Liver mass Assessment & Plan: ? HCC outpatient f/u with primary talent engineer Status: Acute
[2019-01-21] MEDS ORDERED: Dextrose 50% SYRINGE Inj (50 ml) IV PRN (21:26)
[2019-01-21] MEDS ORDERED: Glucagon Recombinant 1 mg Inj IM PRN (21:26)
[2019-01-21] MEDS ORDERED: Insulin Lispro (humaLOG) 100 Units/ml Inj SC SCH (21:30)
[2019-01-22] MEDS: Meropenem 1 GM in Sodium Chloride 0.9% 100 ML IVPB SCH ×3 (00:30→16:57)
[2019-01-22] MEDS: Insulin Lispro (humaLOG) 100 Units/ml Inj SC SCH ×6 (00:44→21:14)
[2019-01-22 05:18] LABS: HEMOGLOBIN 11.1 g/dL (12.0-18.0); MEAN CORPUSCULAR HEMOGLOBIN 38.5 pg (27.0-31.0); MEAN CORPUSCULAR HGB CONC 33.6 g/dL (33.0-37.0); RBC 2.89 Mil/uL (4.40-5.90); RED CELL DISTRIBUTION WIDTH 17.4 % (11.5-14.5); WHITE BLOOD COUNT 8.1 K/uL (4.8-10.8)
[2019-01-22 05:20] LABS: BLOOD UREA NITROGEN 53 mg/dl (9-20); CALCIUM 8.7 mg/dL (8.4-10.2); GFR NON-AFRICAN AMERICAN > 60
[2019-01-22] MEDS: Levothyroxine 50 MCG TAB PO SCH (05:34)
[2019-01-22 05:37] LABS: MEAN CELL VOLUME 114.8 fl (80.0-94.0)
--- NOTE | 2019-01-22 07:54 | CP.CCUPN ---
<Sultan Raina - Last Filed: 01/22/19 11:55> CCU Subjective - Physician Review Subjective (Free Text): 01/22/19 7:42 68 yo Male with PMHx of DMII, Gastritis, HTN, Hypercholesterolemia, Chronic Kidney Disease, liver cirrhosis, hepatic encephalopathy and liver malignancy was brought in to the emergency room on 01/06/19 by the family for evaluation of altered mental status, confusion and abdominal pain. Patient was initially admitted to Med/surg unit, however was transferred to the intensive care unit later in the evening for his worsening of his mental status and intubated. Patient was intubated from 01/06/19 to 01/20/19. Patient was extubated on 01/20/19, saturating well at 98-99% with VM at 40% with 8L Oxygen. Patient seen and examined this morning. Overnight events and nurses notes reviewed. He is awake, alert, and follows command. Not in acute distress. Denies any chest pain, abdominal pain, nausea, vomiting, fever or chills. Patient removed his VM and NG tube this morning but NG tube was reinserted. Patient has been afebrile since 01/18/19 and has stable vitals. Patient's ammonia level was 33 on 01/20/19. Serum sodium is 149 and patient is receiving 300 cc saline flush q4 hrs Patient had urinary retention and straight cath drained 600 cc urine this morning. I/O 3152/900 over last 24 hours. NG tube feeding with Suplena at 50 ml/hr with 300 cc saline flush every 4 hours. Insulin drip was discontinued yesterday. Patient's blood sugar is trending up in 300's. Insulin coverage with Lispro q4hr started in the morning and will start Levemir 20 units q12 hrs. CCU Objective - Vital Signs / Intake & Output Vital Signs (Last 4 hours): Vital Signs Temp Pulse Resp BP Pulse Ox 01/22/19 06:00 68 14 123/64 100 01/22/19 04:00 97.7 F 72 19 124/60 100 Intake and Output (Last 8hrs): Intake & Output 01/21/19 01/22/19 01/22/19 22:59 06:59 14:59 Intake Total 1004 1100 Output Total 900 Balance 1004 200 Weight 95.708 kg Intake: IV 4 Intake, Piggyback 100 Tube Feeding 400 400 Free Water Flush 600 600 Output: Urine 600 Straight 600 Stool 300 - Physical Exam Head: Positive for: Atraumatic, Normocephalic Pupils: Positive for: PERRL Extroacular Muscles: Positive for: EOMI Conjunctiva: Positive for: Icteric Ears: Positive for: Normal Mouth: Positive for: Moist Mucous Membranes Nose (External): Positive for: Atraumatic Respiratory/Chest: Positive for: Clear to Auscultation, Good Air Exchange, Other (increased breath sounds) Cardiovascular: Positive for: Regular Rate and Rhythm Abdomen: Positive for: Normal Bowel Sounds. Negative for: Tenderness, Distention Upper Extremity: Positive for: Swelling (improved and eccymosis on medial aspects of right forearm.) Lower Extremity: Positive for: Normal Inspection. Negative for: Tenderness Skin: Positive for: Warm, Normal Color Psychiatric: Positive for: Alert - Medications Active Medications: Active Medications Generic Name Dose Route Start Last Admin Trade Name Freq PRN Reason Stop Dose Admin Acetaminophen 650 mg 01/18/19 13:39 Tylenol 650mg/20.3ml Solution Ud NG Q6 PRN for temp>100.4 deg f Acetylcysteine 2 ml 01/17/19 20:00 01/21/19 19:14 Acetylcysteine 20% INH 2 ml RBID JOANNA Administration Albuterol Sulfate 2.5 mg 01/19/19 20:00 01/21/19 19:14 Albuterol 0.083% Inhal Mana (2.5 Mg/3 Ml) Ud INH 2.5 mg RBID JOANNA Administration Carvedilol 6.25 mg 01/06/19 21:00 01/21/19 20:56 Coreg NG 6.25 mg Q12 JOANNA Administration Cilostazol 50 mg 01/06/19 10:30 01/07/19 10:22 Pletal PO Not Given Q12 JOANNA Dextrose 0 ml 01/21/19 21:26 Dextrose 50% Inj IV STAT PRN Hypoglycemia Protocol Protocol Dextrose 0 gm 01/21/19 21:26 Glutose 15 PO ONCE PRN Hypoglycemia Protocol Protocol Folic Acid 1 mg 01/10/19 09:00 01/21/19 09:50 Folic Acid GT 1 mg DAILY JOANNA Administration Glucagon 0 mg 01/21/19 21:26 Glucagen Diagnostic Kit IM STAT PRN Hypoglycemia Protocol Protocol Hydralazine HCl 25 mg 01/12/19 13:00 01/21/19 16:08 Apresoline PO 25 mg TID JOANNA Administration Meropenem 1 gm/ Sodium 100 mls @ 100 mls/hr 01/18/19 17:15 01/22/19 00:30 Chloride IVPB 100 mls/hr Q8 [facility] Administration Protocol Insulin Detemir 20 units 01/22/19 09:00 Levemir SC Q12 [facility] Insulin Human Lispro 0 units 01/22/19 01:00 01/22/19 05:40 Humalog SC 5 units Q4 [facility] Administration Protocol Lactulose 20 gm 01/13/19 06:15 01/22/19 05:33 Enulose GT 20 gm Q4H JOANNA Administration Levothyroxine Sodium 50 mcg 01/09/19 06:30 01/22/19 05:34 Synthroid PO 50 mcg DAILY@0630 JOANNA Administration Pantoprazole Sodium 40 mg 01/07/19 13:15 01/21/19 10:10 Protonix Susp NG 40 mg DAILY JOANNA Administration Rifaximin 550 mg 01/11/19 17:00 01/21/19 16:10 Xifaxan PO 550 mg BID [facility] Administration Protocol Thiamine HCl 100 mg 01/10/19 09:00 01/21/19 10:13 Vitamin B1 Tab GT 100 mg DAILY [facility] Administration - Patient Studies Lab Studies: Microbiology Studies 01/10/19 21:25 Gram Stain - Final Trachasp Sputum Culture - Final Klebsiella Oxytoca Pseudomonas Aeruginosa 01/18/19 17:39 Blood Culture - Preliminary Blood-Venous NO GROWTH AFTER 3 DAYS 01/18/19 12:20 Blood Culture - Preliminary Blood-Venous NO GROWTH AFTER 3 DAYS Lab Studies 01/22/19 01/22/19 01/22/19 Range/Units 05:39 05:02 05:02 WBC 8.1 (4.8-10.8) K/uL RBC 2.89 L (4.40-5.90) Mil/uL Hgb 11.1 L (12.0-18.0) g/dL Hct 33.2 L (35.0-51.0) % MCV 114.8 H (80.0-94.0) fl MCH 38.5 H (27.0-31.0) pg MCHC 33.6 (33.0-37.0) g/dL RDW 17.4 H (11.5-14.5) % Plt Count 131 (130-400) K/uL Sodium 149 H (132-148) mmol/l Potassium 4.2 (3.6-5.0) MMOL/L Chloride 119 H (98-107) mmol/L Carbon Dioxide 27 (22-30) mmol/L Anion Gap 7 L (10-20) BUN 53 H (9-20) mg/dl Creatinine 1.0 (0.8-1.5) mg/dl Est GFR ( Amer) > 60 Est GFR (Non-Af Amer) > 60 POC Glucose (mg/dL) 360 H (65-110) mg/dL Random Glucose 390 H (75-110) mg/dL Calcium 8.7 (8.4-10.2) mg/dL 01/22/19 01/21/19 01/21/19 Range/Units 00:19 21:11 15:49 WBC (4.8-10.8) K/uL RBC (4.40-5.90) Mil/uL Hgb (12.0-18.0) g/dL Hct (35.0-51.0) % MCV (80.0-94.0) fl MCH (27.0-31.0) pg MCHC (33.0-37.0) g/dL RDW (11.5-14.5) % Plt Count (130-400) K/uL Sodium (132-148) mmol/l Potassium (3.6-5.0) MMOL/L Chloride (98-107) mmol/L Carbon Dioxide (22-30) mmol/L Anion Gap (10-20) BUN (9-20) mg/dl Creatinine (0.8-1.5) mg/dl Est GFR ( Amer) Est GFR (Non-Af Amer) POC Glucose (mg/dL) 373 H 314 H 195 H (65-110) mg/dL Random Glucose (75-110) mg/dL Calcium (8.4-10.2) mg/dL 01/21/19 01/21/19 01/21/19 Range/Units 14:42 11:34 10:01 WBC (4.8-10.8) K/uL RBC (4.40-5.90) Mil/uL Hgb (12.0-18.0) g/dL Hct (35.0-51.0) % MCV (80.0-94.0) fl MCH (27.0-31.0) pg MCHC (33.0-37.0) g/dL RDW (11.5-14.5) % Plt Count (130-400) K/uL Sodium (132-148) mmol/l Potassium (3.6-5.0) MMOL/L Chloride (98-107) mmol/L Carbon Dioxide (22-30) mmol/L Anion Gap (10-20) BUN (9-20) mg/dl Creatinine (0.8-1.5) mg/dl Est GFR ( Amer) Est GFR (Non-Af Amer) POC Glucose (mg/dL) 207 H 209 H 203 H (65-110) mg/dL Random Glucose (75-110) mg/dL Calcium (8.4-10.2) mg/dL 01/21/19 01/21/19 01/21/19 Range/Units 09:03 08:02 06:56 WBC (4.8-10.8) K/uL RBC (4.40-5.90) Mil/uL Hgb (12.0-18.0) g/dL Hct (35.0-51.0) % MCV (80.0-94.0) fl MCH (27.0-31.0) pg MCHC (33.0-37.0) g/dL RDW (11.5-14.5) % Plt Count (130-400) K/uL Sodium (132-148) mmol/l Potassium (3.6-5.0) MMOL/L Chloride (98-107) mmol/L Carbon Dioxide (22-30) mmol/L Anion Gap (10-20) BUN (9-20) mg/dl Creatinine (0.8-1.5) mg/dl Est GFR ( Amer) Est GFR (Non-Af Amer) POC Glucose (mg/dL) 207 H 226 H 246 H (65-110) mg/dL Random Glucose (75-110) mg/dL Calcium (8.4-10.2) mg/dL Laboratory Results - last 24 hr 01/21/19 01/21/19 01/21/19 06:56 08:02 09:03 WBC RBC Hgb Hct MCV MCH MCHC RDW Plt Count Sodium Potassium Chloride Carbon Dioxide Anion Gap BUN Creatinine Est GFR ( Amer) Est GFR (Non-Af Amer) POC Glucose (mg/dL) 246 H 226 H 207 H Random Glucose Calcium 01/21/19 01/21/19 01/21/19 10:01 11:34 14:42 WBC RBC Hgb Hct MCV MCH MCHC RDW Plt Count Sodium Potassium Chloride Carbon Dioxide Anion Gap BUN Creatinine Est GFR ( Amer) Est GFR (Non-Af Amer) POC Glucose (mg/dL) 203 H 209 H 207 H Random Glucose Calcium 01/21/19 01/21/19 01/22/19 15:49 21:11 00:19 WBC RBC Hgb Hct MCV MCH MCHC RDW Plt Count Sodium Potassium Chloride Carbon Dioxide Anion Gap BUN Creatinine Est GFR ( Amer) Est GFR (Non-Af Amer) POC Glucose (mg/dL) 195 H 314 H 373 H Random Glucose Calcium 01/22/19 01/22/19 01/22/19 05:02 05:02 05:39 WBC 8.1 RBC 2.89 L Hgb 11.1 L Hct 33.2 L MCV 114.8 H MCH 38.5 H MCHC 33.6 RDW 17.4 H Plt Count 131 Sodium 149 H Potassium 4.2 Chloride 119 H Carbon Dioxide 27 Anion Gap 7 L BUN 53 H Creatinine 1.0 Est GFR ( Amer) > 60 Est GFR (Non-Af Amer) > 60 POC Glucose (mg/dL) 360 H Random Glucose 390 H Calcium 8.7 Fingerstick Blood Sugar Results: 360 Review of Systems - Review of Systems Review of Systems: All 12 systems reviewed and negative except as mentioned in HPI Assessment/Plan (1) Acute respiratory failure Current Visit: Yes Status: Acute Priority: High Comment: Patient was orally intubated and mechanically ventilated from 01/06/19 to 01/20/19 due to altered mental status from hepatic encephalopathy and hyperammonemia Patient was successfully extubated on 01/20/19, saturating well on VM. Frequent neuro check Maintain aspiration precaution Mucomyst q12 with albuterol for mucus plug Orgogastric Tube feeding Suplena at 50 cc/hr. Swallow evaluation today. c/w physical therapy (2) Hospital-acquired bacterial pneumonia Current Visit: Yes Status: Acute Comment: Sputum culture o n 01/17/19 grew pseudomonas Sputum culture on 01/10/19 showed Pseudomonas and Klebsiella chest CT on 01/15/19 shows posterior bibasilar pneumonic consolidation -ID consult: recs appreciated -c/w Meropenem 1 gm q8 (day 5) (3) Altered mental status Current Visit: Yes Status: Acute Priority: High Comment: -Head CT on 01/15/19 is negative for intracranial pathology -Improved -successfully extubed on 01/20/19 (4) Hepatic encephalopathy Current Visit: Yes Status: Acute Priority: High Comment: Continued improvement of mental status c/w lactulose and rifaximin Magnesium citrate 300 cc PRN Frequent neuro check (5) Hypernatremia Current Visit: Yes Status: Acute Comment: -Nephologist Dr. Lorenzo on board -Serum Na 149 today. Patient's water flush was increased to 300 cc q4h yesterday. (6) Hyperammonemia Current Visit: Yes Status: Acute Priority: High Comment: -Resolved -Ammonia level 33 on 01/20/19 -c/w lactulose and rifaximin (7) Thrombocytopenia Current Visit: Yes Status: Acute Comment: improving (8) DM type 2 (diabetes mellitus, type 2) Current Visit: No Status: Acute Comment: not controlled -start levemir 20 units SC Q12 -C/W lispro sliding scale q4 -Monitor blood glucose <LatefDarrick M - Last Filed: 01/22/19 11:59> CCU Objective - Vital Signs / Intake & Output Vital Signs (Last 4 hours): Vital Signs Temp Pulse Resp BP Pulse Ox 01/22/19 10:00 71 22 108/48 L 99 01/22/19 08:29 67 124/64 01/22/19 08:00 97 F L 66 21 124/64 100 Intake and Output (Last 8hrs): Intake & Output 01/21/19 01/22/19 01/22/19 22:59 06:59 14:59 Intake Total 1004 1100 600 Output Total 900 Balance 1004 200 600 Weight 211 lb Intake: IV 4 Intake, Piggyback 100 100 Tube Feeding 400 400 500 Free Water Flush 600 600 Output: Urine 600 Straight 600 Stool 300 - Medications Active Medications: Active Medications Generic Name Dose Route Start Last Admin Trade Name Freq PRN Reason Stop Dose Admin Acetaminophen 650 mg 01/18/19 13:39 Tylenol 650mg/20.3ml Solution Ud NG Q6 PRN for temp>100.4 deg f Acetylcysteine 2 ml 01/17/19 20:00 01/22/19 08:06 Acetylcysteine 20% INH 2 ml RBID JOANNA Administration Albuterol Sulfate 2.5 mg 01/19/19 20:00 01/22/19 08:06 Albuterol 0.083% Inhal Mana (2.5 Mg/3 Ml) Ud INH 2.5 mg RBID JOANNA Administration Carvedilol 6.25 mg 01/06/19 21:00 01/22/19 08:29 Coreg NG 6.25 mg Q12 JOANNA Administration Cilostazol 50 mg 01/06/19 10:30 01/07/19 10:22 Pletal PO Not Given Q12 JOANNA Dextrose 0 ml 01/21/19 21:26 Dextrose 50% Inj IV STAT PRN Hypoglycemia Protocol Protocol Dextrose 0 gm 01/21/19 21:26 Glutose 15 PO ONCE PRN Hypoglycemia Protocol Protocol Folic Acid 1 mg 01/10/19 09:00 01/22/19 08:30 Folic Acid GT 1 mg DAILY JOANNA Administration Glucagon 0 mg 01/21/19 21:26 Glucagen Diagnostic Kit IM STAT PRN Hypoglycemia Protocol Protocol Hydralazine HCl 25 mg 01/12/19 13:00 01/22/19 08:29 Apresoline PO 25 mg TID JOANNA Administration Meropenem 1 gm/ Sodium 100 mls @ 100 mls/hr 01/18/19 17:15 01/22/19 08:27 Chloride IVPB 100 mls/hr Q8 [facility]NA Administration Protocol Insulin Detemir 20 units 01/22/19 09:00 01/22/19 08:30 Levemir SC 20 unit Q12 JOANNA Administration Insulin Human Lispro 0 units 01/22/19 01:00 01/22/19 10:07 Humalog SC 5 units Q4 [facility]ANNA Administration Protocol Lactulose 20 gm 01/13/19 06:15 01/22/19 09:59 Enulose GT 20 gm Q4H JOANNA Administration Levothyroxine Sodium 50 mcg 01/09/19 06:30 01/22/19 05:34 Synthroid PO 50 mcg DAILY@0630 JOANNA Administration Pantoprazole Sodium 40 mg 01/07/19 13:15 01/22/19 08:28 Protonix Susp NG 40 mg DAILY JOANNA Administration Rifaximin 550 mg 01/11/19 17:00 01/22/19 08:32 Xifaxan PO 550 mg BID JOANNA Administration Protocol Thiamine HCl 100 mg 01/10/19 09:00 01/22/19 08:28 Vitamin B1 Tab GT 100 mg DAILY JOANNA Administration - Patient Studies Lab Studies: Microbiology Studies 01/10/19 21:25 Gram Stain - Final Trachasp Sputum Culture - Final Klebsiella Oxytoca Pseudomonas Aeruginosa 01/18/19 17:39 Blood Culture - Preliminary Blood-Venous NO GROWTH AFTER 3 DAYS 01/18/19 12:20 Blood Culture - Preliminary Blood-Venous NO GROWTH AFTER 3 DAYS Lab Studies 01/22/19 01/22/19 01/22/19 Range/Units 05:39 05:02 05:02 WBC 8.1 (4.8-10.8) K/uL RBC 2.89 L (4.40-5.90) Mil/uL Hgb 11.1 L (12.0-18.0) g/dL Hct 33.2 L (35.0-51.0) % MCV 114.8 H (80.0-94.0) fl MCH 38.5 H (27.0-31.0) pg MCHC 33.6 (33.0-37.0) g/dL RDW 17.4 H (11.5-14.5) % Plt Count 131 (130-400) K/uL Sodium 149 H (132-148) mmol/l Potassium 4.2 (3.6-5.0) MMOL/L Chloride 119 H (98-107) mmol/L Carbon Dioxide 27 (22-30) mmol/L Anion Gap 7 L (10-20) BUN 53 H (9-20) mg/dl Creatinine 1.0 (0.8-1.5) mg/dl Est GFR ( Amer) > 60 Est GFR (Non-Af Amer) > 60 POC Glucose (mg/dL) 360 H (65-110) mg/dL Random Glucose 390 H (75-110) mg/dL Calcium 8.7 (8.4-10.2) mg/dL 01/22/19 01/21/19 01/21/19 Range/Units 00:19 21:11 15:49 WBC (4.8-10.8) K/uL RBC (4.40-5.90) Mil/uL Hgb (12.0-18.0) g/dL Hct (35.0-51.0) % MCV (80.0-94.0) fl MCH (27.0-31.0) pg MCHC (33.0-37.0) g/dL RDW (11.5-14.5) % Plt Count (130-400) K/uL Sodium (132-148) mmol/l Potassium (3.6-5.0) MMOL/L Chloride (98-107) mmol/L Carbon Dioxide (22-30) mmol/L Anion Gap (10-20) BUN (9-20) mg/dl Creatinine (0.8-1.5) mg/dl Est GFR ( Amer) Est GFR (Non-Af Amer) POC Glucose (mg/dL) 373 H 314 H 195 H (65-110) mg/dL Random Glucose (75-110) mg/dL Calcium (8.4-10.2) mg/dL 01/21/19 Range/Units 14:42 WBC (4.8-10.8) K/uL RBC (4.40-5.90) Mil/uL Hgb (12.0-18.0) g/dL Hct (35.0-51.0) % MCV (80.0-94.0) fl MCH (27.0-31.0) pg MCHC (33.0-37.0) g/dL RDW (11.5-14.5) % Plt Count (130-400) K/uL Sodium (132-148) mmol/l Potassium (3.6-5.0) MMOL/L Chloride (98-107) mmol/L Carbon Dioxide (22-30) mmol/L Anion Gap (10-20) BUN (9-20) mg/dl Creatinine (0.8-1.5) mg/dl Est GFR ( Amer) Est GFR (Non-Af Amer) POC Glucose (mg/dL) 207 H (65-110) mg/dL Random Glucose (75-110) mg/dL Calcium (8.4-10.2) mg/dL Laboratory Results - last 24 hr 04/08/19 04/08/19 04/08/19 14:42 15:49 21:11 WBC RBC Hgb Hct MCV MCH MCHC RDW Plt Count Sodium Potassium Chloride Carbon Dioxide Anion Gap BUN Creatinine Est GFR ( Amer) Est GFR (Non-Af Amer) POC Glucose (mg/dL) 207 H 195 H 314 H Random Glucose Calcium 01/22/19 01/22/19 01/22/19 00:19 05:02 05:02 WBC 8.1 RBC 2.89 L Hgb 11.1 L Hct 33.2 L MCV 114.8 H MCH 38.5 H MCHC 33.6 RDW 17.4 H Plt Count 131 Sodium 149 H Potassium 4.2 Chloride 119 H Carbon Dioxide 27 Anion Gap 7 L BUN 53 H Creatinine 1.0 Est GFR ( Amer) > 60 Est GFR (Non-Af Amer) > 60 POC Glucose (mg/dL) 373 H Random Glucose 390 H Calcium 8.7 01/22/19 05:39 WBC RBC Hgb Hct MCV MCH MCHC RDW Plt Count Sodium Potassium Chloride Carbon Dioxide Anion Gap BUN Creatinine Est GFR ( Amer) Est GFR (Non-Af Amer) POC Glucose (mg/dL) 360 H Random Glucose Calcium Assessment/Plan (1) Acute respiratory failure Current Visit: Yes Status: Acute Priority: High Comment: Patient was orally intubated and mechanically ventilated from 01/06/19 to 01/20/19 due to altered mental status from hepatic encephalopathy and hyperammonemia Patient was successfully extubated on 01/20/19, saturating well on VM. Frequent neuro check Maintain aspiration precaution Mucomyst q12 with albuterol for mucus plug Orgogastric Tube feeding Suplena at 50 cc/hr. Swallow evaluation today. c/w physical therapy (2) Hepatic encephalopathy Current Visit: Yes Status: Acute Priority: High Comment: Continued improvement of mental status c/w lactulose and rifaximin Magnesium citrate 300 cc PRN Frequent neuro check (3) Alcoholic cirrhosis of liver Current Visit: Yes Status: Acute Priority: High (4) Hyperammonemia Current Visit: Yes Status: Acute Priority: High Comment: -Resolved -Ammonia level 33 on 01/20/19 -c/w lactulose and rifaximin (5) Thrombocytopenia Current Visit: Yes Status: Acute Priority: High Comment: Morning labs reviewed platelet count 49K, no signs of active bleeding, hemoglobin/Hct stable Attending/Attestation - Attestation I have personally seen and examined this patient.: Yes I have fully participated in the care of the patient.: Yes I have reviewed all pertinent clinical information: Yes Notes (Text): 01/22/19 11:59 The patient was Seen/interviewed and examined by me at the bedside during ICU round, Medical records reviewed and Management issues were discussed and formulated with the house staff. Events reviewed I have reviewed all the relevant clinical, laboratory, hemodynamic, radiographic data and medications Pain issues, skin care, head of the bed elevation, glycemic control were addressed. I concur with resident's assessment and plan of care as transcribed in Dr. Romeo note.
[2019-01-22] MEDS ORDERED: Chlorhexidine Gluconate 1 APPL/PKT TP ONE (08:00)
[2019-01-22] MEDS: Acetylcysteine 20% Inhal Soln (4ml) INH SCH ×2 (08:06→19:02)
[2019-01-22] MEDS: Albuterol 0.083% Inhal Sol (2.5 mg/3 mL) UD INH SCH ×2 (08:06→19:02)
[2019-01-22] MEDS: Pantoprazole 40 mg Susp UD NG SCH (08:28)
[2019-01-22] MEDS: Insulin Detemir 100 Units/ml Inj SC SCH ×2 (08:30→21:14)
--- NOTE | 2019-01-22 10:08 | CP.PCM.PN ---
Subjective - Date & Time of Evaluation Date of Evaluation: 01/22/19 Time of Evaluation: 10:08 - Subjective Subjective: ID Note- Patient seen and examined today in ICU. pt. awake and alert and answers questions. He is on FM for oxygen. denies any sob. denies any fever. Objective - Vital Signs/Intake and Output Vital Signs (last 24 hours): Temp Pulse Resp BP Pulse Ox 97 F L 67 21 124/64 100 01/22/19 08:00 01/22/19 08:29 01/22/19 08:00 01/22/19 08:29 01/22/19 08:00 Intake and Output: 01/22/19 01/22/19 06:59 18:59 Intake Total 1600 100 Output Total 900 Balance 700 100 - Medications Medications: Current Medications Acetaminophen (Tylenol 650mg/20.3ml Solution Ud) 650 mg NG Q6 PRN PRN Reason: for temp>100.4 deg f Acetylcysteine (Acetylcysteine 20%) 2 ml INH RBID [facility] Last Admin: 01/22/19 08:06 Dose: 2 ml Albuterol Sulfate (Albuterol 0.083% Inhal Mana (2.5 Mg/3 Ml) Ud) 2.5 mg INH RBID [facility] Last Admin: 01/22/19 08:06 Dose: 2.5 mg Carvedilol (Coreg) 6.25 mg NG Q12 [facility] Last Admin: 01/22/19 08:29 Dose: 6.25 mg Cilostazol (Pletal) 50 mg PO Q12 [facility] Last Admin: 01/07/19 10:22 Dose: Not Given Dextrose (Dextrose 50% Inj) 0 ml IV STAT PRN; Protocol PRN Reason: Hypoglycemia Protocol Dextrose (Glutose 15) 0 gm PO ONCE PRN; Protocol PRN Reason: Hypoglycemia Protocol Folic Acid (Folic Acid) 1 mg GT DAILY [facility] Last Admin: 01/22/19 08:30 Dose: 1 mg Glucagon (Glucagen Diagnostic Kit) 0 mg IM STAT PRN; Protocol PRN Reason: Hypoglycemia Protocol Hydralazine HCl (Apresoline) 25 mg PO TID [facility] Last Admin: 01/22/19 08:29 Dose: 25 mg Meropenem 1 gm/ Sodium (Chloride) 100 mls @ 100 mls/hr IVPB Q8 JOANNA; Protocol Last Admin: 04/09/19 08:27 Dose: 100 mls/hr Insulin Detemir (Levemir) 20 units SC Q12 [facility] Last Admin: 01/22/19 08:30 Dose: 20 unit Insulin Human Lispro (Humalog) 0 units SC Q4 [facility]; Protocol Last Admin: 01/22/19 05:40 Dose: 5 units Lactulose (Enulose) 20 gm GT Q4H [facility] Last Admin: 01/22/19 05:33 Dose: 20 gm Levothyroxine Sodium (Synthroid) 50 mcg PO DAILY@0630 [facility] Last Admin: 01/22/19 05:34 Dose: 50 mcg Pantoprazole Sodium (Protonix Susp) 40 mg NG DAILY [facility] Last Admin: 01/22/19 08:28 Dose: 40 mg Rifaximin (Xifaxan) 550 mg PO BID [facility]; Protocol Last Admin: 01/22/19 08:32 Dose: 550 mg Thiamine HCl (Vitamin B1 Tab) 100 mg GT DAILY [facility] Last Admin: 01/22/19 08:28 Dose: 100 mg - Labs Labs: - Additional Findings Additional findings: - Constitutional Additional comments: awake and more alert today - Neck Exam Neck exam: Positive for: Full Rom - Respiratory Exam Additional comments: good aeration b/l no wheezing - Cardiovascular Exam Cardiovascular Exam: RRR, +S1, +S2 - GI/Abdominal Exam GI & Abdominal Exam: Normal Bowel Sounds, Soft Additional comments: NT, ND - Extremities Exam Extremities exam: Positive for: normal inspection - Neurological Exam Neurological exam: awake and much more alert and can answer questions Laboratory Results - last 72 hr 01/19/19 01/19/19 01/19/19 11:07 12:18 14:01 WBC RBC Hgb Hct MCV MCH MCHC RDW Plt Count MPV Neut % (Auto) Lymph % (Auto) [place] % (Auto) Eos % (Auto) Baso % (Auto) Neut # (Auto) Lymph # (Auto) [place] # (Auto) Eos # (Auto) Baso # (Auto) pCO2 pO2 HCO3 ABG pH ABG Total CO2 ABG O2 Saturation ABG O2 Content ABG Base Excess ABG Hemoglobin ABG Carboxyhemoglobin POC ABG HHb (Measured) ABG Methemoglobin ABG O2 Capacity [place] Test A-a O2 Difference Hgb O2 Saturation Vent Mode Mechanical Rate FiO2 Tidal Volume PEEP Pressure Support Sodium Potassium Chloride Carbon Dioxide Anion Gap BUN Creatinine Est GFR ( Amer) Est GFR (Non-Af Amer) POC Glucose (mg/dL) 291 H 251 H 203 H Random Glucose Calcium Phosphorus Magnesium Total Bilirubin AST ALT Alkaline Phosphatase Ammonia Total Protein Albumin Globulin Albumin/Globulin Ratio 01/19/19 01/19/19 01/19/19 15:23 16:00 17:02 WBC RBC Hgb Hct MCV MCH MCHC RDW Plt Count MPV Neut % (Auto) Lymph % (Auto) [place] % (Auto) Eos % (Auto) Baso % (Auto) Neut # (Auto) Lymph # (Auto) [place] # (Auto) Eos # (Auto) Baso # (Auto) pCO2 pO2 HCO3 ABG pH ABG Total CO2 ABG O2 Saturation ABG O2 Content ABG Base Excess ABG Hemoglobin ABG Carboxyhemoglobin POC ABG HHb (Measured) ABG Methemoglobin ABG O2 Capacity [place] Test A-a O2 Difference Hgb O2 Saturation Vent Mode Mechanical Rate FiO2 Tidal Volume PEEP Pressure Support Sodium Potassium Chloride Carbon Dioxide Anion Gap BUN Creatinine Est GFR ( Amer) Est GFR (Non-Af Amer) POC Glucose (mg/dL) 223 H 225 H 238 H Random Glucose Calcium Phosphorus Magnesium Total Bilirubin AST ALT Alkaline Phosphatase Ammonia Total Protein Albumin Globulin Albumin/Globulin Ratio 01/19/19 01/19/19 01/19/19 17:57 19:05 19:56 WBC RBC Hgb Hct MCV MCH MCHC RDW Plt Count MPV Neut % (Auto) Lymph % (Auto) [place] % (Auto) Eos % (Auto) Baso % (Auto) Neut # (Auto) Lymph # (Auto) [place] # (Auto) Eos # (Auto) Baso # (Auto) pCO2 pO2 HCO3 ABG pH ABG Total CO2 ABG O2 Saturation ABG O2 Content ABG Base Excess ABG Hemoglobin ABG Carboxyhemoglobin POC ABG HHb (Measured) ABG Methemoglobin ABG O2 Capacity [place] Test A-a O2 Difference Hgb O2 Saturation Vent Mode Mechanical Rate FiO2 Tidal Volume PEEP Pressure Support Sodium Potassium Chloride Carbon Dioxide Anion Gap BUN Creatinine Est GFR ( Amer) Est GFR (Non-Af Amer) POC Glucose (mg/dL) 234 H 209 H 168 H Random Glucose Calcium Phosphorus Magnesium Total Bilirubin AST ALT Alkaline Phosphatase Ammonia Total Protein Albumin Globulin Albumin/Globulin Ratio 01/19/19 01/19/19 01/19/19 21:03 22:01 23:00 WBC RBC Hgb Hct MCV MCH MCHC RDW Plt Count MPV Neut % (Auto) Lymph % (Auto) [place] % (Auto) Eos % (Auto) Baso % (Auto) Neut # (Auto) Lymph # (Auto) [place] # (Auto) Eos # (Auto) Baso # (Auto) pCO2 pO2 HCO3 ABG pH ABG Total CO2 ABG O2 Saturation ABG O2 Content ABG Base Excess ABG Hemoglobin ABG Carboxyhemoglobin POC ABG HHb (Measured) ABG Methemoglobin ABG O2 Capacity [place] Test A-a O2 Difference Hgb O2 Saturation Vent Mode Mechanical Rate FiO2 Tidal Volume PEEP Pressure Support Sodium Potassium Chloride Carbon Dioxide Anion Gap BUN Creatinine Est GFR ( Amer) Est GFR (Non-Af Amer) POC Glucose (mg/dL) 166 H 212 H 228 H Random Glucose Calcium Phosphorus Magnesium Total Bilirubin AST ALT Alkaline Phosphatase Ammonia Total Protein Albumin Globulin Albumin/Globulin Ratio 01/20/19 01/20/19 01/20/19 00:00 00:57 01:59 WBC RBC Hgb Hct MCV MCH MCHC RDW Plt Count MPV Neut % (Auto) Lymph % (Auto) [place] % (Auto) Eos % (Auto) Baso % (Auto) Neut # (Auto) Lymph # (Auto) [place] # (Auto) Eos # (Auto) Baso # (Auto) pCO2 pO2 HCO3 ABG pH ABG Total CO2 ABG O2 Saturation ABG O2 Content ABG Base Excess ABG Hemoglobin ABG Carboxyhemoglobin POC ABG HHb (Measured) ABG Methemoglobin ABG O2 Capacity [place] Test A-a O2 Difference Hgb O2 Saturation Vent Mode Mechanical Rate FiO2 Tidal Volume PEEP Pressure Support Sodium Potassium Chloride Carbon Dioxide Anion Gap BUN Creatinine Est GFR ( Amer) Est GFR (Non-Af Amer) POC Glucose (mg/dL) 259 H 232 H 235 H Random Glucose Calcium Phosphorus Magnesium Total Bilirubin AST ALT Alkaline Phosphatase Ammonia Total Protein Albumin Globulin Albumin/Globulin Ratio 01/20/19 01/20/19 01/20/19 02:54 03:57 04:30 WBC 12.5 H RBC 3.07 L Hgb 11.9 L Hct 34.7 L MCV 113.3 H MCH 38.8 H MCHC 34.3 RDW 17.6 H Plt Count 133 MPV Neut % (Auto) Lymph % (Auto) [place] % (Auto) Eos % (Auto) Baso % (Auto) Neut # (Auto) Lymph # (Auto) [place] # (Auto) Eos # (Auto) Baso # (Auto) pCO2 pO2 HCO3 ABG pH ABG Total CO2 ABG O2 Saturation ABG O2 Content ABG Base Excess ABG Hemoglobin ABG Carboxyhemoglobin POC ABG HHb (Measured) ABG Methemoglobin ABG O2 Capacity [place] Test A-a O2 Difference Hgb O2 Saturation Vent Mode Mechanical Rate FiO2 Tidal Volume PEEP Pressure Support Sodium Potassium Chloride Carbon Dioxide Anion Gap BUN Creatinine Est GFR ( Amer) Est GFR (Non-Af Amer) POC Glucose (mg/dL) 248 H 244 H Random Glucose Calcium Phosphorus Magnesium Total Bilirubin AST ALT Alkaline Phosphatase Ammonia Total Protein Albumin Globulin Albumin/Globulin Ratio 01/20/19 01/20/19 01/20/19 04:30 05:01 05:06 WBC RBC Hgb Hct MCV MCH MCHC RDW Plt Count MPV Neut % (Auto) Lymph % (Auto) [place] % (Auto) Eos % (Auto) Baso % (Auto) Neut # (Auto) Lymph # (Auto) [place] # (Auto) Eos # (Auto) Baso # (Auto) pCO2 37 pO2 83 HCO3 30.3 H ABG pH 7.52 H ABG Total CO2 31.3 H ABG O2 Saturation 99.4 H ABG O2 Content 18.3 ABG Base Excess 7.0 H ABG Hemoglobin 13.6 ABG Carboxyhemoglobin 2.3 H POC ABG HHb (Measured) 0.6 ABG Methemoglobin 1.5 ABG O2 Capacity 18.4 [place] Test Yes A-a O2 Difference 85.0 Hgb O2 Saturation 95.6 Vent Mode A/c Mechanical Rate 10 FiO2 30.0 Tidal Volume 400 PEEP 5 Pressure Support Sodium 147 Potassium 3.9 Chloride 114 H Carbon Dioxide 30 Anion Gap 7 L BUN 67 H Creatinine 1.1 Est GFR ( Amer) > 60 Est GFR (Non-Af Amer) > 60 POC Glucose (mg/dL) 238 H Random Glucose 239 H Calcium 8.6 Phosphorus 2.7 Magnesium 3.5 H Total Bilirubin 1.7 H AST 81 H ALT 60 Alkaline Phosphatase 345 H Ammonia Total Protein 5.8 L Albumin 2.0 L Globulin 3.7 Albumin/Globulin Ratio 0.5 L 01/20/19 01/20/19 01/20/19 06:07 06:55 08:00 WBC RBC Hgb Hct MCV MCH MCHC RDW Plt Count MPV Neut % (Auto) Lymph % (Auto) [place] % (Auto) Eos % (Auto) Baso % (Auto) Neut # (Auto) Lymph # (Auto) [place] # (Auto) Eos # (Auto) Baso # (Auto) pCO2 pO2 HCO3 ABG pH ABG Total CO2 ABG O2 Saturation ABG O2 Content ABG Base Excess ABG Hemoglobin ABG Carboxyhemoglobin POC ABG HHb (Measured) ABG Methemoglobin ABG O2 Capacity [place] Test A-a O2 Difference Hgb O2 Saturation Vent Mode Mechanical Rate FiO2 Tidal Volume PEEP Pressure Support Sodium Potassium Chloride Carbon Dioxide Anion Gap BUN Creatinine Est GFR ( Amer) Est GFR (Non-Af Amer) POC Glucose (mg/dL) 220 H 221 H 239 H Random Glucose Calcium Phosphorus Magnesium Total Bilirubin AST ALT Alkaline Phosphatase Ammonia Total Protein Albumin Globulin Albumin/Globulin Ratio 01/20/19 01/20/19 01/20/19 08:31 09:04 10:01 WBC RBC Hgb Hct MCV MCH MCHC RDW Plt Count MPV Neut % (Auto) Lymph % (Auto) [place] % (Auto) Eos % (Auto) Baso % (Auto) Neut # (Auto) Lymph # (Auto) [place] # (Auto) Eos # (Auto) Baso # (Auto) pCO2 38 pO2 83 HCO3 30.8 H ABG pH 7.52 H ABG Total CO2 32.2 H ABG O2 Saturation 99.0 H ABG O2 Content 15.6 ABG Base Excess 7.6 H ABG Hemoglobin 11.5 L ABG Carboxyhemoglobin 1.8 H POC ABG HHb (Measured) 1.0 ABG Methemoglobin 1.3 ABG O2 Capacity 15.8 L [place] Test Yes A-a O2 Difference 83.0 Hgb O2 Saturation 95.8 Vent Mode Cpap+ps Mechanical Rate FiO2 30.0 Tidal Volume PEEP 10 Pressure Support 5 Sodium Potassium Chloride Carbon Dioxide Anion Gap BUN Creatinine Est GFR ( Amer) Est GFR (Non-Af Amer) POC Glucose (mg/dL) 237 H 178 H Random Glucose Calcium Phosphorus Magnesium Total Bilirubin AST ALT Alkaline Phosphatase Ammonia Total Protein Albumin Globulin Albumin/Globulin Ratio 01/20/19 01/20/19 01/20/19 10:58 12:00 12:04 WBC RBC Hgb Hct MCV MCH MCHC RDW Plt Count MPV Neut % (Auto) Lymph % (Auto) [place] % (Auto) Eos % (Auto) Baso % (Auto) Neut # (Auto) Lymph # (Auto) [place] # (Auto) Eos # (Auto) Baso # (Auto) pCO2 pO2 HCO3 ABG pH ABG Total CO2 ABG O2 Saturation ABG O2 Content ABG Base Excess ABG Hemoglobin ABG Carboxyhemoglobin POC ABG HHb (Measured) ABG Methemoglobin ABG O2 Capacity [place] Test A-a O2 Difference Hgb O2 Saturation Vent Mode Mechanical Rate FiO2 Tidal Volume PEEP Pressure Support Sodium Potassium Chloride Carbon Dioxide Anion Gap BUN Creatinine Est GFR ( Amer) Est GFR (Non-Af Amer) POC Glucose (mg/dL) 167 H 192 H Random Glucose Calcium Phosphorus Magnesium Total Bilirubin AST ALT Alkaline Phosphatase Ammonia 33 D Total Protein Albumin Globulin Albumin/Globulin Ratio 01/20/19 01/20/19 01/20/19 13:02 14:03 14:58 WBC RBC Hgb Hct MCV MCH MCHC RDW Plt Count MPV Neut % (Auto) Lymph % (Auto) [place] % (Auto) Eos % (Auto) Baso % (Auto) Neut # (Auto) Lymph # (Auto) [place] # (Auto) Eos # (Auto) Baso # (Auto) pCO2 pO2 HCO3 ABG pH ABG Total CO2 ABG O2 Saturation ABG O2 Content ABG Base Excess ABG Hemoglobin ABG Carboxyhemoglobin POC ABG HHb (Measured) ABG Methemoglobin ABG O2 Capacity [place] Test A-a O2 Difference Hgb O2 Saturation Vent Mode Mechanical Rate FiO2 Tidal Volume PEEP Pressure Support Sodium Potassium Chloride Carbon Dioxide Anion Gap BUN Creatinine Est GFR ( Amer) Est GFR (Non-Af Amer) POC Glucose (mg/dL) 201 H 191 H 213 H Random Glucose Calcium Phosphorus Magnesium Total Bilirubin AST ALT Alkaline Phosphatase Ammonia Total Protein Albumin Globulin Albumin/Globulin Ratio 01/20/19 01/20/19 01/20/19 16:03 17:09 18:02 WBC RBC Hgb Hct MCV MCH MCHC RDW Plt Count MPV Neut % (Auto) Lymph % (Auto) [place] % (Auto) Eos % (Auto) Baso % (Auto) Neut # (Auto) Lymph # (Auto) [place] # (Auto) Eos # (Auto) Baso # (Auto) pCO2 pO2 HCO3 ABG pH ABG Total CO2 ABG O2 Saturation ABG O2 Content ABG Base Excess ABG Hemoglobin ABG Carboxyhemoglobin POC ABG HHb (Measured) ABG Methemoglobin ABG O2 Capacity [place] Test A-a O2 Difference Hgb O2 Saturation Vent Mode Mechanical Rate FiO2 Tidal Volume PEEP Pressure Support Sodium Potassium Chloride Carbon Dioxide Anion Gap BUN Creatinine Est GFR ( Amer) Est GFR (Non-Af Amer) POC Glucose (mg/dL) 233 H 244 H 238 H Random Glucose Calcium Phosphorus Magnesium Total Bilirubin AST ALT Alkaline Phosphatase Ammonia Total Protein Albumin Globulin Albumin/Globulin Ratio 01/20/19 01/20/19 01/20/19 18:57 20:03 21:01 WBC RBC Hgb Hct MCV MCH MCHC RDW Plt Count MPV Neut % (Auto) Lymph % (Auto) [place] % (Auto) Eos % (Auto) Baso % (Auto) Neut # (Auto) Lymph # (Auto) [place] # (Auto) Eos # (Auto) Baso # (Auto) pCO2 pO2 HCO3 ABG pH ABG Total CO2 ABG O2 Saturation ABG O2 Content ABG Base Excess ABG Hemoglobin ABG Carboxyhemoglobin POC ABG HHb (Measured) ABG Methemoglobin ABG O2 Capacity [place] Test A-a O2 Difference Hgb O2 Saturation Vent Mode Mechanical Rate FiO2 Tidal Volume PEEP Pressure Support Sodium Potassium Chloride Carbon Dioxide Anion Gap BUN Creatinine Est GFR ( Amer) Est GFR (Non-Af Amer) POC Glucose (mg/dL) 239 H 245 H 228 H Random Glucose Calcium Phosphorus Magnesium Total Bilirubin AST ALT Alkaline Phosphatase Ammonia Total Protein Albumin Globulin Albumin/Globulin Ratio 01/20/19 01/20/19 01/20/19 22:03 23:00 23:57 WBC RBC Hgb Hct MCV MCH MCHC RDW Plt Count MPV Neut % (Auto) Lymph % (Auto) [place] % (Auto) Eos % (Auto) Baso % (Auto) Neut # (Auto) Lymph # (Auto) [place] # (Auto) Eos # (Auto) Baso # (Auto) pCO2 pO2 HCO3 ABG pH ABG Total CO2 ABG O2 Saturation ABG O2 Content ABG Base Excess ABG Hemoglobin ABG Carboxyhemoglobin POC ABG HHb (Measured) ABG Methemoglobin ABG O2 Capacity [place] Test A-a O2 Difference Hgb O2 Saturation Vent Mode Mechanical Rate FiO2 Tidal Volume PEEP Pressure Support Sodium Potassium Chloride Carbon Dioxide Anion Gap BUN Creatinine Est GFR ( Amer) Est GFR (Non-Af Amer) POC Glucose (mg/dL) 257 H 178 H 185 H Random Glucose Calcium Phosphorus Magnesium Total Bilirubin AST ALT Alkaline Phosphatase Ammonia Total Protein Albumin Globulin Albumin/Globulin Ratio 01/21/19 01/21/19 01/21/19 01:01 02:00 02:59 WBC RBC Hgb Hct MCV MCH MCHC RDW Plt Count MPV Neut % (Auto) Lymph % (Auto) [place] % (Auto) Eos % (Auto) Baso % (Auto) Neut # (Auto) Lymph # (Auto) [place] # (Auto) Eos # (Auto) Baso # (Auto) pCO2 pO2 HCO3 ABG pH ABG Total CO2 ABG O2 Saturation ABG O2 Content ABG Base Excess ABG Hemoglobin ABG Carboxyhemoglobin POC ABG HHb (Measured) ABG Methemoglobin ABG O2 Capacity [place] Test A-a O2 Difference Hgb O2 Saturation Vent Mode Mechanical Rate FiO2 Tidal Volume PEEP Pressure Support Sodium Potassium Chloride Carbon Dioxide Anion Gap BUN Creatinine Est GFR ( Amer) Est GFR (Non-Af Amer) POC Glucose (mg/dL) 234 H 258 H 242 H Random Glucose Calcium Phosphorus Magnesium Total Bilirubin AST ALT Alkaline Phosphatase Ammonia Total Protein Albumin Globulin Albumin/Globulin Ratio 01/21/19 01/21/19 01/21/19 04:05 05:01 05:19 WBC 9.1 RBC 2.94 L Hgb 11.4 L Hct 33.7 L MCV 114.4 H MCH 38.7 H MCHC 33.8 RDW 17.6 H Plt Count 133 MPV 10.3 Neut % (Auto) 80.9 H Lymph % (Auto) 7.0 L [place] % (Auto) 10.1 H Eos % (Auto) 1.7 Baso % (Auto) 0.3 Neut # (Auto) 7.4 H Lymph # (Auto) 0.6 L [place] # (Auto) 0.9 H Eos # (Auto) 0.2 Baso # (Auto) 0.0 pCO2 pO2 HCO3 ABG pH ABG Total CO2 ABG O2 Saturation ABG O2 Content ABG Base Excess ABG Hemoglobin ABG Carboxyhemoglobin POC ABG HHb (Measured) ABG Methemoglobin ABG O2 Capacity [place] Test A-a O2 Difference Hgb O2 Saturation Vent Mode Mechanical Rate FiO2 Tidal Volume PEEP Pressure Support Sodium Potassium Chloride Carbon Dioxide Anion Gap BUN Creatinine Est GFR ( Amer) Est GFR (Non-Af Amer) POC Glucose (mg/dL) 219 H 206 H Random Glucose Calcium Phosphorus Magnesium Total Bilirubin AST ALT Alkaline Phosphatase Ammonia Total Protein Albumin Globulin Albumin/Globulin Ratio 01/21/19 01/21/19 01/21/19 05:19 06:00 06:56 WBC RBC Hgb Hct MCV MCH MCHC RDW Plt Count MPV Neut % (Auto) Lymph % (Auto) [place] % (Auto) Eos % (Auto) Baso % (Auto) Neut # (Auto) Lymph # (Auto) [place] # (Auto) Eos # (Auto) Baso # (Auto) pCO2 pO2 HCO3 ABG pH ABG Total CO2 ABG O2 Saturation ABG O2 Content ABG Base Excess ABG Hemoglobin ABG Carboxyhemoglobin POC ABG HHb (Measured) ABG Methemoglobin ABG O2 Capacity [place] Test A-a O2 Difference Hgb O2 Saturation Vent Mode Mechanical Rate FiO2 Tidal Volume PEEP Pressure Support Sodium 150 H Potassium 3.9 Chloride 119 H Carbon Dioxide 29 Anion Gap 6 L BUN 60 H Creatinine 1.1 Est GFR ( Amer) > 60 Est GFR (Non-Af Amer) > 60 POC Glucose (mg/dL) 214 H 246 H Random Glucose 199 H Calcium 8.6 Phosphorus Magnesium 3.3 H Total Bilirubin 1.7 H AST 99 H D ALT 56 Alkaline Phosphatase 333 H Ammonia Total Protein 5.7 L Albumin 2.0 L Globulin 3.8 Albumin/Globulin Ratio 0.5 L 01/21/19 01/21/19 01/21/19 08:02 09:03 10:01 WBC RBC Hgb Hct MCV MCH MCHC RDW Plt Count MPV Neut % (Auto) Lymph % (Auto) [place] % (Auto) Eos % (Auto) Baso % (Auto) Neut # (Auto) Lymph # (Auto) [place] # (Auto) Eos # (Auto) Baso # (Auto) pCO2 pO2 HCO3 ABG pH ABG Total CO2 ABG O2 Saturation ABG O2 Content ABG Base Excess ABG Hemoglobin ABG Carboxyhemoglobin POC ABG HHb (Measured) ABG Methemoglobin ABG O2 Capacity [place] Test A-a O2 Difference Hgb O2 Saturation Vent Mode Mechanical Rate FiO2 Tidal Volume PEEP Pressure Support Sodium Potassium Chloride Carbon Dioxide Anion Gap BUN Creatinine Est GFR ( Amer) Est GFR (Non-Af Amer) POC Glucose (mg/dL) 226 H 207 H 203 H Random Glucose Calcium Phosphorus Magnesium Total Bilirubin AST ALT Alkaline Phosphatase Ammonia Total Protein Albumin Globulin Albumin/Globulin Ratio 01/21/19 01/21/19 01/21/19 11:34 14:42 15:49 WBC RBC Hgb Hct MCV MCH MCHC RDW Plt Count MPV Neut % (Auto) Lymph % (Auto) [place] % (Auto) Eos % (Auto) Baso % (Auto) Neut # (Auto) Lymph # (Auto) [place] # (Auto) Eos # (Auto) Baso # (Auto) pCO2 pO2 HCO3 ABG pH ABG Total CO2 ABG O2 Saturation ABG O2 Content ABG Base Excess ABG Hemoglobin ABG Carboxyhemoglobin POC ABG HHb (Measured) ABG Methemoglobin ABG O2 Capacity [place] Test A-a O2 Difference Hgb O2 Saturation Vent Mode Mechanical Rate FiO2 Tidal Volume PEEP Pressure Support Sodium Potassium Chloride Carbon Dioxide Anion Gap BUN Creatinine Est GFR ( Amer) Est GFR (Non-Af Amer) POC Glucose (mg/dL) 209 H 207 H 195 H Random Glucose Calcium Phosphorus Magnesium Total Bilirubin AST ALT Alkaline Phosphatase Ammonia Total Protein Albumin Globulin Albumin/Globulin Ratio 01/21/19 01/22/19 01/22/19 21:11 00:19 05:02 WBC 8.1 RBC 2.89 L Hgb 11.1 L Hct 33.2 L MCV 114.8 H MCH 38.5 H MCHC 33.6 RDW 17.4 H Plt Count 131 MPV Neut % (Auto) Lymph % (Auto) [place] % (Auto) Eos % (Auto) Baso % (Auto) Neut # (Auto) Lymph # (Auto) [place] # (Auto) Eos # (Auto) Baso # (Auto) pCO2 pO2 HCO3 ABG pH ABG Total CO2 ABG O2 Saturation ABG O2 Content ABG Base Excess ABG Hemoglobin ABG Carboxyhemoglobin POC ABG HHb (Measured) ABG Methemoglobin ABG O2 Capacity [place] Test A-a O2 Difference Hgb O2 Saturation Vent Mode Mechanical Rate FiO2 Tidal Volume PEEP Pressure Support Sodium Potassium Chloride Carbon Dioxide Anion Gap BUN Creatinine Est GFR ( Amer) Est GFR (Non-Af Amer) POC Glucose (mg/dL) 314 H 373 H Random Glucose Calcium Phosphorus Magnesium Total Bilirubin AST ALT Alkaline Phosphatase Ammonia Total Protein Albumin Globulin Albumin/Globulin Ratio 01/22/19 01/22/19 01/22/19 05:02 05:39 10:05 WBC RBC Hgb Hct MCV MCH MCHC RDW Plt Count MPV Neut % (Auto) Lymph % (Auto) [place] % (Auto) Eos % (Auto) Baso % (Auto) Neut # (Auto) Lymph # (Auto) [place] # (Auto) Eos # (Auto) Baso # (Auto) pCO2 pO2 HCO3 ABG pH ABG Total CO2 ABG O2 Saturation ABG O2 Content ABG Base Excess ABG Hemoglobin ABG Carboxyhemoglobin POC ABG HHb (Measured) ABG Methemoglobin ABG O2 Capacity [place] Test A-a O2 Difference Hgb O2 Saturation Vent Mode Mechanical Rate FiO2 Tidal Volume PEEP Pressure Support Sodium 149 H Potassium 4.2 Chloride 119 H Carbon Dioxide 27 Anion Gap 7 L BUN 53 H Creatinine 1.0 Est GFR ( Amer) > 60 Est GFR (Non-Af Amer) > 60 POC Glucose (mg/dL) 360 H 356 H Random Glucose 390 H Calcium 8.7 Phosphorus Magnesium Total Bilirubin AST ALT Alkaline Phosphatase Ammonia Total Protein Albumin Globulin Albumin/Globulin Ratio Microbiology 01/18/19 12:20 Blood-Venous Blood Culture - Preliminary NO GROWTH AFTER 4 DAYS 01/10/19 21:25 Trachasp Gram Stain - Final 01/10/19 21:25 Trachasp Sputum Culture - Final Klebsiella Oxytoca Pseudomonas Aeruginosa 01/18/19 17:39 Blood-Venous Blood Culture - Preliminary NO GROWTH AFTER 3 DAYS 01/15/19 18:40 Blood Blood Culture - Final NO GROWTH AFTER 5 DAYS 01/15/19 18:40 Blood Gram Stain - Final TEST NOT PERFORMED 01/15/19 17:45 Blood Blood Culture - Final NO GROWTH AFTER 5 DAYS 01/15/19 17:45 Blood Gram Stain - Final TEST NOT PERFORMED 01/17/19 18:20 Sputum Gram Stain - Final 01/17/19 18:20 Sputum Sputum Culture - Final Pseudomonas Aeruginosa 01/15/19 07:16 Urine,Howe Urine Culture - Final Beta Hemolytic Strep Group B 01/07/19 18:08 Urine,Howe Urine Culture - Final Beta Hemolytic Strep Group B 01/06/19 10:41 Naris MRSA Culture (Admit) - Final MRSA NOT DETECTED Assessment and Plan (1) Hospital-acquired bacterial pneumonia Status: Acute (2) Acute respiratory failure Status: Acute - Assessment and Plan (Free Text) Assessment: A/P- 69 year old male with h/o ETOH abuse, liver cirrhosis, liver cancer undergoing chemo who was admitted with change in MS . s/p extubation 3 days ago. clinically much improved. afebrile past 72 hours blood cx- neg x 4 Et tube cx- KLebsilele and pseudomonas not ESBL sputum cx- pseudomonas cx Plan- continue with Meropnem 1 gram IV q8 hours.day #5. advise at least 3 more days of IV meropnem for both pseudomonas and klebsiella pneumonia treatment. monitor aspiration precautions. All imaging and labs and chart notes reviewed. Critical care time spent 35 minutes.
--- NOTE | 2019-01-22 11:17 | CP.PCM.PN ---
Subjective - Date & Time of Evaluation Date of Evaluation: 01/22/19 Time of Evaluation: 11:17 - Subjective Subjective: Patient awake and doing much better Extubated Vital sign appears to be stable Objective - Vital Signs/Intake and Output Vital Signs (last 24 hours): Temp Pulse Resp BP Pulse Ox 97 F L 71 22 108/48 L 99 01/22/19 08:00 01/22/19 10:00 01/22/19 10:00 01/22/19 10:00 01/22/19 10:00 Intake and Output: 01/22/19 01/22/19 06:59 18:59 Intake Total 1600 600 Output Total 900 Balance 700 600 - Medications Medications: Current Medications Acetaminophen (Tylenol 650mg/20.3ml Solution Ud) 650 mg NG Q6 PRN PRN Reason: for temp>100.4 deg f Acetylcysteine (Acetylcysteine 20%) 2 ml INH RBID [facility] Last Admin: 01/22/19 08:06 Dose: 2 ml Albuterol Sulfate (Albuterol 0.083% Inhal Mana (2.5 Mg/3 Ml) Ud) 2.5 mg INH RBID [facility] Last Admin: 01/22/19 08:06 Dose: 2.5 mg Carvedilol (Coreg) 6.25 mg NG Q12 [facility] Last Admin: 01/22/19 08:29 Dose: 6.25 mg Cilostazol (Pletal) 50 mg PO Q12 [facility] Last Admin: 01/07/19 10:22 Dose: Not Given Dextrose (Dextrose 50% Inj) 0 ml IV STAT PRN; Protocol PRN Reason: Hypoglycemia Protocol Dextrose (Glutose 15) 0 gm PO ONCE PRN; Protocol PRN Reason: Hypoglycemia Protocol Folic Acid (Folic Acid) 1 mg GT DAILY [facility] Last Admin: 01/22/19 08:30 Dose: 1 mg Glucagon (Glucagen Diagnostic Kit) 0 mg IM STAT PRN; Protocol PRN Reason: Hypoglycemia Protocol Hydralazine HCl (Apresoline) 25 mg PO TID [facility] Last Admin: 01/22/19 08:29 Dose: 25 mg Meropenem 1 gm/ Sodium (Chloride) 100 mls @ 100 mls/hr IVPB Q8 [facility]; Protocol Last Admin: 01/22/19 08:27 Dose: 100 mls/hr Insulin Detemir (Levemir) 20 units SC Q12 [facility] Last Admin: 01/22/19 08:30 Dose: 20 unit Insulin Human Lispro (Humalog) 0 units SC Q4 [facility]; Protocol Last Admin: 01/22/19 10:07 Dose: 5 units Lactulose (Enulose) 20 gm GT Q4H [facility] Last Admin: 01/22/19 09:59 Dose: 20 gm Levothyroxine Sodium (Synthroid) 50 mcg PO DAILY@0630 [facility] Last Admin: 01/22/19 05:34 Dose: 50 mcg Pantoprazole Sodium (Protonix Susp) 40 mg NG DAILY [facility] Last Admin: 01/22/19 08:28 Dose: 40 mg Rifaximin (Xifaxan) 550 mg PO BID [facility]; Protocol Last Admin: 01/22/19 08:32 Dose: 550 mg Thiamine HCl (Vitamin B1 Tab) 100 mg GT DAILY [facility] Last Admin: 01/22/19 08:28 Dose: 100 mg - Labs Labs: 01/22/19 05:02 01/22/19 05:02 PT 16.1 Seconds (9.8-13.1) H 01/11/19 05:33 INR 1.4 01/11/19 05:33 APTT 32.9 Seconds (25.6-37.1) 01/11/19 05:33 - Constitutional Appears: No Acute Distress - ENT Exam ENT Exam: Mucous Membranes Moist - Respiratory Exam Respiratory Exam: absent: Chest Wall Tenderness - Cardiovascular Exam Cardiovascular Exam: absent: Gallop, JVD, Rubs - GI/Abdominal Exam GI & Abdominal Exam: Soft, Normal Bowel Sounds - Extremities Exam Extremities Exam: absent: Calf Tenderness - Back Exam Back Exam: absent: CVA tenderness (L), CVA tenderness (R) - Neurological Exam Neurological Exam: Alert - Skin Skin Exam: absent: Cyanosis Assessment and Plan (1) Hyponatremia Status: Acute (2) NIRAJ (acute kidney injury) Assessment & Plan: Acute kidney injury recovering hypernatremia Patient diagnosed with liver cirrhosis and liver malignancy as noted Hepatic encephalopathy Diabetes mellitus Recommendation Patient extubated Serum sodium came down to 149 continue NG tube water flushing with 300 cc Kidney function stable Rest of medical problem as per primary team with the intensive care unit team Status: Resolved (3) Acute respiratory failure Status: Acute (4) Altered mental status Status: Acute (5) Hepatic encephalopathy Status: Acute (6) Hyperammonemia Status: Acute (7) Liver mass Status: Acute (8) Thrombocytopenia Status: Acute
--- NOTE | 2019-01-22 15:20 | CP.PCM.PN ---
Subjective - Date & Time of Evaluation Date of Evaluation: 01/22/19 Time of Evaluation: 12:00 - Subjective Subjective: Extubated, at bedside. Objective - Vital Signs/Intake and Output Vital Signs (last 24 hours): Temp Pulse Resp BP Pulse Ox 97.6 F 67 18 106/55 L 98 01/22/19 12:00 01/22/19 12:00 01/22/19 12:00 01/22/19 12:00 01/22/19 12:00 Intake and Output: 01/22/19 01/22/19 06:59 18:59 Intake Total 1600 1000 Output Total 900 Balance 700 1000 - Medications Medications: Current Medications Acetaminophen (Tylenol 650mg/20.3ml Solution Ud) 650 mg NG Q6 PRN PRN Reason: for temp>100.4 deg f Acetylcysteine (Acetylcysteine 20%) 2 ml INH RBID [facility] Last Admin: 01/22/19 08:06 Dose: 2 ml Albuterol Sulfate (Albuterol 0.083% Inhal Mana (2.5 Mg/3 Ml) Ud) 2.5 mg INH RBID [facility] Last Admin: 01/22/19 08:06 Dose: 2.5 mg Carvedilol (Coreg) 6.25 mg NG Q12 [facility] Last Admin: 01/22/19 08:29 Dose: 6.25 mg Cilostazol (Pletal) 50 mg PO Q12 [facility] Last Admin: 01/07/19 10:22 Dose: Not Given Dextrose (Dextrose 50% Inj) 0 ml IV STAT PRN; Protocol PRN Reason: Hypoglycemia Protocol Dextrose (Glutose 15) 0 gm PO ONCE PRN; Protocol PRN Reason: Hypoglycemia Protocol Folic Acid (Folic Acid) 1 mg GT DAILY [facility] Last Admin: 01/22/19 08:30 Dose: 1 mg Glucagon (Glucagen Diagnostic Kit) 0 mg IM STAT PRN; Protocol PRN Reason: Hypoglycemia Protocol Hydralazine HCl (Apresoline) 25 mg PO TID [facility] Last Admin: 01/22/19 08:29 Dose: 25 mg Meropenem 1 gm/ Sodium (Chloride) 100 mls @ 100 mls/hr IVPB Q8 [facility]; Protocol Last Admin: 01/22/19 08:27 Dose: 100 mls/hr Insulin Detemir (Levemir) 20 units SC Q12 [facility] Last Admin: 01/22/19 08:30 Dose: 20 unit Insulin Human Lispro (Humalog) 0 units SC Q4 [facility]; Protocol Last Admin: 01/22/19 13:47 Dose: 5 units Lactulose (Enulose) 20 gm GT Q4H [facility] Last Admin: 01/22/19 13:46 Dose: 20 gm Levothyroxine Sodium (Synthroid) 50 mcg PO DAILY@0630 [facility] Last Admin: 01/22/19 05:34 Dose: 50 mcg Pantoprazole Sodium (Protonix Susp) 40 mg NG DAILY [facility] Last Admin: 01/22/19 08:28 Dose: 40 mg Rifaximin (Xifaxan) 550 mg PO BID [facility]; Protocol Last Admin: 01/22/19 08:32 Dose: 550 mg Tamsulosin HCl (Flomax) 0.4 mg NG DAILY [facility] Last Admin: 01/22/19 13:45 Dose: 0.4 mg Thiamine HCl (Vitamin B1 Tab) 100 mg GT DAILY [facility] Last Admin: 01/22/19 08:28 Dose: 100 mg - Labs Labs: 01/22/19 05:02 01/22/19 05:02 PT 16.1 Seconds (9.8-13.1) H 01/11/19 05:33 INR 1.4 01/11/19 05:33 APTT 32.9 Seconds (25.6-37.1) 01/11/19 05:33 - Head Exam Head Exam: ATRAUMATIC - Eye Exam Eye Exam: Normal appearance - ENT Exam ENT Exam: Mucous Membranes Dry - Respiratory Exam Respiratory Exam: NORMAL BREATHING PATTERN - Cardiovascular Exam Cardiovascular Exam: +S1, +S2 - GI/Abdominal Exam GI & Abdominal Exam: Normal Bowel Sounds Assessment and Plan (1) Thrombocytopenia Assessment & Plan: liver cirrhosis and splenic sequestration Status: Acute (2) Coagulopathy Assessment & Plan: liver disease nutritional component vit k and FFP PRN Status: Acute (3) Liver mass Assessment & Plan: HCC 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
--- NOTE | 2019-01-22 23:51 | CP.PCM.PN ---
Subjective - Date & Time of Evaluation Date of Evaluation: 01/22/19 Time of Evaluation: 10:15 - Subjective Subjective: Seen and examined at the bed side. S/P extubation Day#2, and able to give history. Denies any pain. Objective - Vital Signs/Intake and Output Vital Signs (last 24 hours): Temp Pulse Resp BP Pulse Ox 97 F L 71 14 105/57 L 98 01/22/19 20:00 01/22/19 22:00 01/22/19 22:00 01/22/19 22:00 01/22/19 22:00 Intake and Output: 01/22/19 01/23/19 18:59 06:59 Intake Total 1508 500 Output Total 1400 Balance 108 500 - Medications Medications: Current Medications Acetaminophen (Tylenol 650mg/20.3ml Solution Ud) 650 mg NG Q6 PRN PRN Reason: for temp>100.4 deg f Acetylcysteine (Acetylcysteine 20%) 2 ml INH RBID [facility] Last Admin: 01/22/19 19:02 Dose: 2 ml Albuterol Sulfate (Albuterol 0.083% Inhal Mana (2.5 Mg/3 Ml) Ud) 2.5 mg INH RBID [facility] Last Admin: 01/22/19 19:02 Dose: 2.5 mg Carvedilol (Coreg) 6.25 mg NG Q12 [facility] Last Admin: 01/22/19 21:16 Dose: Not Given Cilostazol (Pletal) 50 mg PO Q12 [facility] Last Admin: 01/07/19 10:22 Dose: Not Given Dextrose (Dextrose 50% Inj) 0 ml IV STAT PRN; Protocol PRN Reason: Hypoglycemia Protocol Dextrose (Glutose 15) 0 gm PO ONCE PRN; Protocol PRN Reason: Hypoglycemia Protocol Folic Acid (Folic Acid) 1 mg GT DAILY [facility] Last Admin: 01/22/19 08:30 Dose: 1 mg Glucagon (Glucagen Diagnostic Kit) 0 mg IM STAT PRN; Protocol PRN Reason: Hypoglycemia Protocol Hydralazine HCl (Apresoline) 25 mg PO TID [facility] Last Admin: 01/22/19 16:58 Dose: Not Given Meropenem 1 gm/ Sodium (Chloride) 100 mls @ 100 mls/hr IVPB Q8 [facility]; Protocol Last Admin: 01/22/19 16:57 Dose: 100 mls/hr Insulin Detemir (Levemir) 20 units SC Q12 [facility] Last Admin: 01/22/19 21:14 Dose: 20 unit Insulin Human Lispro (Humalog) 0 units SC Q4 [facility]; Protocol Last Admin: 01/22/19 21:14 Dose: Not Given Lactulose (Enulose) 20 gm GT Q4H [facility] Last Admin: 01/22/19 21:15 Dose: 20 gm Levothyroxine Sodium (Synthroid) 50 mcg PO DAILY@0630 [facility] Last Admin: 01/22/19 05:34 Dose: 50 mcg Pantoprazole Sodium (Protonix Susp) 40 mg NG DAILY [facility] Last Admin: 01/22/19 08:28 Dose: 40 mg Rifaximin (Xifaxan) 550 mg PO BID [facility]; Protocol Last Admin: 01/22/19 17:02 Dose: 550 mg Tamsulosin HCl (Flomax) 0.4 mg NG DAILY [facility] Last Admin: 01/22/19 13:45 Dose: 0.4 mg Thiamine HCl (Vitamin B1 Tab) 100 mg GT DAILY [facility] Last Admin: 01/22/19 08:28 Dose: 100 mg - Labs Labs: 01/22/19 05:02 01/22/19 05:02 PT 16.1 Seconds (9.8-13.1) H 01/11/19 05:33 INR 1.4 01/11/19 05:33 APTT 32.9 Seconds (25.6-37.1) 01/11/19 05:33 Assessment and Plan (1) Acute respiratory failure Status: Resolved (2) Altered mental status Status: Resolved (3) Alcoholic cirrhosis of liver Status: Chronic (4) Hepatic encephalopathy Status: Resolved (5) DM type 2 (diabetes mellitus, type 2) Status: Acute - Assessment and Plan (Free Text) Plan: Continue Current Care PT/OT evaluation
[2019-01-23] MEDS: Insulin Lispro (humaLOG) 100 Units/ml Inj SC SCH ×6 (01:24→21:40)
[2019-01-23] MEDS: Meropenem 1 GM in Sodium Chloride 0.9% 100 ML IVPB SCH ×3 (01:25→16:26)
[2019-01-23] MEDS: Levothyroxine 50 MCG TAB PO SCH (05:35)
[2019-01-23 06:02] LABS: BASO % 0.5 % (0.0-2.0); EOS # 0.3 K/uL (0.0-0.7); EOS % 3.2 % (0.0-4.0); HEMOGLOBIN 11.2 g/dL (12.0-18.0); LYMPH # 0.7 K/uL (1.0-4.3); LYMPH % 8.1 % (20.0-40.0); MEAN CORPUSCULAR HEMOGLOBIN 39.3 pg (27.0-31.0); MEAN CORPUSCULAR HGB CONC 34.1 g/dL (33.0-37.0); MONO # 0.8 K/uL (0.0-0.8); MONO % 8.6 % (0.0-10.0); NEUT # 6.9 K/uL (1.8-7.0); NEUT % 79.6 % (50.0-75.0); NRBC % 0.1 % (0.0-0.0); PLATELET COUNT 126 K/uL (130-400); RBC 2.84 Mil/uL (4.40-5.90); RED CELL DISTRIBUTION WIDTH 16.7 % (11.5-14.5); WHITE BLOOD COUNT 8.7 K/uL (4.8-10.8)
[2019-01-23 06:08] LABS: ALB/GLOB RATIO 0.5 (1.0-2.1); ALBUMIN 1.9 g/dL (3.5-5.0); ALT/SGPT 62 U/L (21-72); AST/SGOT 94 U/L (17-59); BLOOD UREA NITROGEN 47 mg/dl (9-20); CALCIUM 8.7 mg/dL (8.4-10.2); GFR NON-AFRICAN AMERICAN > 60; MEAN CELL VOLUME 115.3 fl (80.0-94.0)
[2019-01-23] MEDS: Albuterol 0.083% Inhal Sol (2.5 mg/3 mL) UD INH SCH ×2 (07:23→19:04)
[2019-01-23] MEDS: Acetylcysteine 20% Inhal Soln (4ml) INH SCH ×2 (07:23→19:04)
[2019-01-23 08:14] LABS: ANISOCYTOSIS SLIGHT; BASOPHIL 1 % (0-2); EOSINOPHIL 2 % (0-7); LYMPHOCYTE 10 % (20-50); MONOCYTE 8 % (0-10); NEUTROPHIL 79 % (42-75); PLATELET ESTIMATE DECREASED (NORMAL); TOTAL CELLS COUNTED 100
[2019-01-23 08:15] LABS: HYPOCHROMIC SLIGHT; TOXIC GRANULATION PRESENT
[2019-01-23] MEDS: Pantoprazole 40 mg Susp UD NG SCH (08:45)
--- NOTE | 2019-01-23 09:13 | CP.PCM.PN ---
Subjective - Date & Time of Evaluation Date of Evaluation: 01/23/19 Time of Evaluation: 09:13 - Subjective Subjective: ID note- Patient seen and examined in ICU . pt. awake and alert and his family is at his bedside. he denies any cough or sob. denies any fever. Objective - Vital Signs/Intake and Output Vital Signs (last 24 hours): Temp Pulse Resp BP Pulse Ox 97.7 F 78 21 113/56 L 96 01/23/19 08:00 01/23/19 08:47 01/23/19 08:00 01/23/19 08:47 01/23/19 08:00 Intake and Output: 01/23/19 01/23/19 06:59 18:59 Intake Total 1300 50 Output Total 1200 Balance 100 50 - Medications Medications: Current Medications Acetaminophen (Tylenol 650mg/20.3ml Solution Ud) 650 mg NG Q6 PRN PRN Reason: for temp>100.4 deg f Acetylcysteine (Acetylcysteine 20%) 2 ml INH RBID [facility] Last Admin: 01/23/19 07:23 Dose: 2 ml Albuterol Sulfate (Albuterol 0.083% Inhal Mana (2.5 Mg/3 Ml) Ud) 2.5 mg INH RBID [facility] Last Admin: 01/23/19 07:23 Dose: 2.5 mg Carvedilol (Coreg) 6.25 mg NG Q12 [facility] Last Admin: 01/23/19 08:47 Dose: 6.25 mg Cilostazol (Pletal) 50 mg PO Q12 [facility] Last Admin: 01/07/19 10:22 Dose: Not Given Dextrose (Dextrose 50% Inj) 0 ml IV STAT PRN; Protocol PRN Reason: Hypoglycemia Protocol Dextrose (Glutose 15) 0 gm PO ONCE PRN; Protocol PRN Reason: Hypoglycemia Protocol Folic Acid (Folic Acid) 1 mg GT DAILY [facility] Last Admin: 01/23/19 08:46 Dose: 1 mg Glucagon (Glucagen Diagnostic Kit) 0 mg IM STAT PRN; Protocol PRN Reason: Hypoglycemia Protocol Hydralazine HCl (Apresoline) 25 mg PO TID [facility] Last Admin: 01/23/19 08:45 Dose: 25 mg Meropenem 1 gm/ Sodium (Chloride) 100 mls @ 100 mls/hr IVPB Q8 JOANNA; Protocol Last Admin: 01/23/19 08:43 Dose: 100 mls/hr Insulin Detemir (Levemir) 25 units SC Q12 [facility] Insulin Human Lispro (Humalog) 0 units SC Q4 [facility]; Protocol Last Admin: 01/23/19 05:35 Dose: 2 units Lactulose (Enulose) 20 gm GT Q4H [facility] Last Admin: 01/23/19 05:35 Dose: 20 gm Levothyroxine Sodium (Synthroid) 50 mcg PO DAILY@0630 [facility] Last Admin: 01/23/19 05:35 Dose: 50 mcg Pantoprazole Sodium (Protonix Susp) 40 mg NG DAILY [facility] Last Admin: 01/23/19 08:45 Dose: 40 mg Rifaximin (Xifaxan) 550 mg PO BID [facility]; Protocol Last Admin: 01/23/19 08:45 Dose: 550 mg Tamsulosin HCl (Flomax) 0.4 mg NG DAILY [facility] Last Admin: 01/23/19 08:45 Dose: 0.4 mg Thiamine HCl (Vitamin B1 Tab) 100 mg GT DAILY [facility] Last Admin: 01/23/19 08:46 Dose: 100 mg - Labs Labs: - Additional Findings Additional findings: - Constitutional Additional comments: awake and more alert today - Neck Exam Neck exam: Positive for: Full Rom - Respiratory Exam Additional comments: good aeration b/l no wheezing - Cardiovascular Exam Cardiovascular Exam: RRR, +S1, +S2 - GI/Abdominal Exam GI & Abdominal Exam: Normal Bowel Sounds, Soft Additional comments: NT, ND - Extremities Exam Extremities exam: Positive for: normal inspection - Neurological Exam Neurological exam: awake and much more alert and can answer questions Laboratory Results - last 72 hr 01/20/19 01/20/19 01/20/19 17:09 18:02 18:57 WBC RBC Hgb Hct MCV MCH MCHC RDW Plt Count MPV Neut % (Auto) Lymph % (Auto) Franklin % (Auto) Eos % (Auto) Baso % (Auto) Neut # (Auto) Lymph # (Auto) Franklin # (Auto) Eos # (Auto) Baso # (Auto) Neutrophils % (Manual) Lymphocytes % (Manual) Monocytes % (Manual) Eosinophils % (Manual) Basophils % (Manual) Toxic Granulation Platelet Estimate Hypochromasia (manual) Anisocytosis (manual) Macrocytosis (manual) PT INR APTT Sodium Potassium Chloride Carbon Dioxide Anion Gap BUN Creatinine Est GFR ( Amer) Est GFR (Non-Af Amer) POC Glucose (mg/dL) 244 H 238 H 239 H Random Glucose Calcium Phosphorus Magnesium Total Bilirubin AST ALT Alkaline Phosphatase Ammonia Total Protein Albumin Globulin Albumin/Globulin Ratio Prostate Specific Ag 01/20/19 01/20/19 01/20/19 20:03 21:01 22:03 WBC RBC Hgb Hct MCV MCH MCHC RDW Plt Count MPV Neut % (Auto) Lymph % (Auto) Franklin % (Auto) Eos % (Auto) Baso % (Auto) Neut # (Auto) Lymph # (Auto) Franklin # (Auto) Eos # (Auto) Baso # (Auto) Neutrophils % (Manual) Lymphocytes % (Manual) Monocytes % (Manual) Eosinophils % (Manual) Basophils % (Manual) Toxic Granulation Platelet Estimate Hypochromasia (manual) Anisocytosis (manual) Macrocytosis (manual) PT INR APTT Sodium Potassium Chloride Carbon Dioxide Anion Gap BUN Creatinine Est GFR ( Amer) Est GFR (Non-Af Amer) POC Glucose (mg/dL) 245 H 228 H 257 H Random Glucose Calcium Phosphorus Magnesium Total Bilirubin AST ALT Alkaline Phosphatase Ammonia Total Protein Albumin Globulin Albumin/Globulin Ratio Prostate Specific Ag 01/20/19 01/20/19 01/21/19 23:00 23:57 01:01 WBC RBC Hgb Hct MCV MCH MCHC RDW Plt Count MPV Neut % (Auto) Lymph % (Auto) Franklin % (Auto) Eos % (Auto) Baso % (Auto) Neut # (Auto) Lymph # (Auto) [place] # (Auto) Eos # (Auto) Baso # (Auto) Neutrophils % (Manual) Lymphocytes % (Manual) Monocytes % (Manual) Eosinophils % (Manual) Basophils % (Manual) Toxic Granulation Platelet Estimate Hypochromasia (manual) Anisocytosis (manual) Macrocytosis (manual) PT INR APTT Sodium Potassium Chloride Carbon Dioxide Anion Gap BUN Creatinine Est GFR ( Amer) Est GFR (Non-Af Amer) POC Glucose (mg/dL) 178 H 185 H 234 H Random Glucose Calcium Phosphorus Magnesium Total Bilirubin AST ALT Alkaline Phosphatase Ammonia Total Protein Albumin Globulin Albumin/Globulin Ratio Prostate Specific Ag 01/21/19 01/21/19 01/21/19 02:00 02:59 04:05 WBC RBC Hgb Hct MCV MCH MCHC RDW Plt Count MPV Neut % (Auto) Lymph % (Auto) Franklin % (Auto) Eos % (Auto) Baso % (Auto) Neut # (Auto) Lymph # (Auto) Franklin # (Auto) Eos # (Auto) Baso # (Auto) Neutrophils % (Manual) Lymphocytes % (Manual) Monocytes % (Manual) Eosinophils % (Manual) Basophils % (Manual) Toxic Granulation Platelet Estimate Hypochromasia (manual) Anisocytosis (manual) Macrocytosis (manual) PT INR APTT Sodium Potassium Chloride Carbon Dioxide Anion Gap BUN Creatinine Est GFR ( Amer) Est GFR (Non-Af Amer) POC Glucose (mg/dL) 258 H 242 H 219 H Random Glucose Calcium Phosphorus Magnesium Total Bilirubin AST ALT Alkaline Phosphatase Ammonia Total Protein Albumin Globulin Albumin/Globulin Ratio Prostate Specific Ag 01/21/19 01/21/19 01/21/19 05:01 05:19 05:19 WBC 9.1 RBC 2.94 L Hgb 11.4 L Hct 33.7 L MCV 114.4 H MCH 38.7 H MCHC 33.8 RDW 17.6 H Plt Count 133 MPV 10.3 Neut % (Auto) 80.9 H Lymph % (Auto) 7.0 L Franklin % (Auto) 10.1 H Eos % (Auto) 1.7 Baso % (Auto) 0.3 Neut # (Auto) 7.4 H Lymph # (Auto) 0.6 L Franklin # (Auto) 0.9 H Eos # (Auto) 0.2 Baso # (Auto) 0.0 Neutrophils % (Manual) Lymphocytes % (Manual) Monocytes % (Manual) Eosinophils % (Manual) Basophils % (Manual) Toxic Granulation Platelet Estimate Hypochromasia (manual) Anisocytosis (manual) Macrocytosis (manual) PT INR APTT Sodium 150 H Potassium 3.9 Chloride 119 H Carbon Dioxide 29 Anion Gap 6 L BUN 60 H Creatinine 1.1 Est GFR ( Amer) > 60 Est GFR (Non-Af Amer) > 60 POC Glucose (mg/dL) 206 H Random Glucose 199 H Calcium 8.6 Phosphorus Magnesium 3.3 H Total Bilirubin 1.7 H AST 99 H D ALT 56 Alkaline Phosphatase 333 H Ammonia Total Protein 5.7 L Albumin 2.0 L Globulin 3.8 Albumin/Globulin Ratio 0.5 L Prostate Specific Ag 01/21/19 01/21/19 01/21/19 06:00 06:56 08:02 WBC RBC Hgb Hct MCV MCH MCHC RDW Plt Count MPV Neut % (Auto) Lymph % (Auto) Franklin % (Auto) Eos % (Auto) Baso % (Auto) Neut # (Auto) Lymph # (Auto) Franklin # (Auto) Eos # (Auto) Baso # (Auto) Neutrophils % (Manual) Lymphocytes % (Manual) Monocytes % (Manual) Eosinophils % (Manual) Basophils % (Manual) Toxic Granulation Platelet Estimate Hypochromasia (manual) Anisocytosis (manual) Macrocytosis (manual) PT INR APTT Sodium Potassium Chloride Carbon Dioxide Anion Gap BUN Creatinine Est GFR ( Amer) Est GFR (Non-Af Amer) POC Glucose (mg/dL) 214 H 246 H 226 H Random Glucose Calcium Phosphorus Magnesium Total Bilirubin AST ALT Alkaline Phosphatase Ammonia Total Protein Albumin Globulin Albumin/Globulin Ratio Prostate Specific Ag 01/21/19 01/21/19 01/21/19 09:03 10:01 11:34 WBC RBC Hgb Hct MCV MCH MCHC RDW Plt Count MPV Neut % (Auto) Lymph % (Auto) Franklin % (Auto) Eos % (Auto) Baso % (Auto) Neut # (Auto) Lymph # (Auto) Franklin # (Auto) Eos # (Auto) Baso # (Auto) Neutrophils % (Manual) Lymphocytes % (Manual) Monocytes % (Manual) Eosinophils % (Manual) Basophils % (Manual) Toxic Granulation Platelet Estimate Hypochromasia (manual) Anisocytosis (manual) Macrocytosis (manual) PT INR APTT Sodium Potassium Chloride Carbon Dioxide Anion Gap BUN Creatinine Est GFR ( Amer) Est GFR (Non-Af Amer) POC Glucose (mg/dL) 207 H 203 H 209 H Random Glucose Calcium Phosphorus Magnesium Total Bilirubin AST ALT Alkaline Phosphatase Ammonia Total Protein Albumin Globulin Albumin/Globulin Ratio Prostate Specific Ag 01/21/19 01/21/19 01/21/19 14:42 15:49 21:11 WBC RBC Hgb Hct MCV MCH MCHC RDW Plt Count MPV Neut % (Auto) Lymph % (Auto) Franklin % (Auto) Eos % (Auto) Baso % (Auto) Neut # (Auto) Lymph # (Auto) Franklin # (Auto) Eos # (Auto) Baso # (Auto) Neutrophils % (Manual) Lymphocytes % (Manual) Monocytes % (Manual) Eosinophils % (Manual) Basophils % (Manual) Toxic Granulation Platelet Estimate Hypochromasia (manual) Anisocytosis (manual) Macrocytosis (manual) PT INR APTT Sodium Potassium Chloride Carbon Dioxide Anion Gap BUN Creatinine Est GFR ( Amer) Est GFR (Non-Af Amer) POC Glucose (mg/dL) 207 H 195 H 314 H Random Glucose Calcium Phosphorus Magnesium Total Bilirubin AST ALT Alkaline Phosphatase Ammonia Total Protein Albumin Globulin Albumin/Globulin Ratio Prostate Specific Ag 01/22/19 01/22/19 01/22/19 00:19 05:02 05:02 WBC 8.1 RBC 2.89 L Hgb 11.1 L Hct 33.2 L MCV 114.8 H MCH 38.5 H MCHC 33.6 RDW 17.4 H Plt Count 131 MPV Neut % (Auto) Lymph % (Auto) Franklin % (Auto) Eos % (Auto) Baso % (Auto) Neut # (Auto) Lymph # (Auto) Franklin # (Auto) Eos # (Auto) Baso # (Auto) Neutrophils % (Manual) Lymphocytes % (Manual) Monocytes % (Manual) Eosinophils % (Manual) Basophils % (Manual) Toxic Granulation Platelet Estimate Hypochromasia (manual) Anisocytosis (manual) Macrocytosis (manual) PT INR APTT Sodium 149 H Potassium 4.2 Chloride 119 H Carbon Dioxide 27 Anion Gap 7 L BUN 53 H Creatinine 1.0 Est GFR ( Amer) > 60 Est GFR (Non-Af Amer) > 60 POC Glucose (mg/dL) 373 H Random Glucose 390 H Calcium 8.7 Phosphorus Magnesium Total Bilirubin AST ALT Alkaline Phosphatase Ammonia Total Protein Albumin Globulin Albumin/Globulin Ratio Prostate Specific Ag 01/22/19 01/22/19 01/22/19 05:39 10:05 13:43 WBC RBC Hgb Hct MCV MCH MCHC RDW Plt Count MPV Neut % (Auto) Lymph % (Auto) Franklin % (Auto) Eos % (Auto) Baso % (Auto) Neut # (Auto) Lymph # (Auto) Franklin # (Auto) Eos # (Auto) Baso # (Auto) Neutrophils % (Manual) Lymphocytes % (Manual) Monocytes % (Manual) Eosinophils % (Manual) Basophils % (Manual) Toxic Granulation Platelet Estimate Hypochromasia (manual) Anisocytosis (manual) Macrocytosis (manual) PT INR APTT Sodium Potassium Chloride Carbon Dioxide Anion Gap BUN Creatinine Est GFR ( Amer) Est GFR (Non-Af Amer) POC Glucose (mg/dL) 360 H 356 H 362 H Random Glucose Calcium Phosphorus Magnesium Total Bilirubin AST ALT Alkaline Phosphatase Ammonia Total Protein Albumin Globulin Albumin/Globulin Ratio Prostate Specific Ag 01/22/19 01/22/19 01/23/19 16:53 21:08 01:22 WBC RBC Hgb Hct MCV MCH MCHC RDW Plt Count MPV Neut % (Auto) Lymph % (Auto) Franklin % (Auto) Eos % (Auto) Baso % (Auto) Neut # (Auto) Lymph # (Auto) Franklin # (Auto) Eos # (Auto) Baso # (Auto) Neutrophils % (Manual) Lymphocytes % (Manual) Monocytes % (Manual) Eosinophils % (Manual) Basophils % (Manual) Toxic Granulation Platelet Estimate Hypochromasia (manual) Anisocytosis (manual) Macrocytosis (manual) PT INR APTT Sodium Potassium Chloride Carbon Dioxide Anion Gap BUN Creatinine Est GFR ( Amer) Est GFR (Non-Af Amer) POC Glucose (mg/dL) 312 H 299 H 236 H Random Glucose Calcium Phosphorus Magnesium Total Bilirubin AST ALT Alkaline Phosphatase Ammonia Total Protein Albumin Globulin Albumin/Globulin Ratio Prostate Specific Ag 01/23/19 01/23/19 01/23/19 05:31 05:40 05:40 WBC 8.7 RBC 2.84 L Hgb 11.2 L Hct 32.7 L MCV 115.3 H MCH 39.3 H MCHC 34.1 RDW 16.7 H Plt Count 126 L MPV 11.0 Neut % (Auto) 79.6 H Lymph % (Auto) 8.1 L Franklin % (Auto) 8.6 Eos % (Auto) 3.2 Baso % (Auto) 0.5 Neut # (Auto) 6.9 Lymph # (Auto) 0.7 L Franklin # (Auto) 0.8 Eos # (Auto) 0.3 Baso # (Auto) 0.0 Neutrophils % (Manual) 79 H Lymphocytes % (Manual) 10 L Monocytes % (Manual) 8 Eosinophils % (Manual) 2 Basophils % (Manual) 1 Toxic Granulation Present Platelet Estimate Decreased L Hypochromasia (manual) Slight Anisocytosis (manual) Slight Macrocytosis (manual) Moderate PT INR APTT Sodium 148 Potassium 3.8 Chloride 121 H Carbon Dioxide 27 Anion Gap 4 L BUN 47 H Creatinine 0.8 Est GFR ( Amer) > 60 Est GFR (Non-Af Amer) > 60 POC Glucose (mg/dL) 224 H Random Glucose 237 H Calcium 8.7 Phosphorus 2.8 Magnesium 2.6 H Total Bilirubin 2.0 H AST 94 H ALT 62 Alkaline Phosphatase 415 H D Ammonia Total Protein 5.6 L Albumin 1.9 L Globulin 3.7 Albumin/Globulin Ratio 0.5 L Prostate Specific Ag 0.215 01/23/19 01/23/19 01/23/19 09:19 10:30 10:30 WBC RBC Hgb Hct MCV MCH MCHC RDW Plt Count MPV Neut % (Auto) Lymph % (Auto) Franklin % (Auto) Eos % (Auto) Baso % (Auto) Neut # (Auto) Lymph # (Auto) Franklin # (Auto) Eos # (Auto) Baso # (Auto) Neutrophils % (Manual) Lymphocytes % (Manual) Monocytes % (Manual) Eosinophils % (Manual) Basophils % (Manual) Toxic Granulation Platelet Estimate Hypochromasia (manual) Anisocytosis (manual) Macrocytosis (manual) PT 16.1 H INR 1.4 APTT 31.5 Sodium Potassium Chloride Carbon Dioxide Anion Gap BUN Creatinine Est GFR ( Amer) Est GFR (Non-Af Amer) POC Glucose (mg/dL) 212 H Random Glucose Calcium Phosphorus Magnesium Total Bilirubin AST ALT Alkaline Phosphatase Ammonia 40 H D Total Protein Albumin Globulin Albumin/Globulin Ratio Prostate Specific Ag 01/23/19 16:22 WBC RBC Hgb Hct MCV MCH MCHC RDW Plt Count MPV Neut % (Auto) Lymph % (Auto) Franklin % (Auto) Eos % (Auto) Baso % (Auto) Neut # (Auto) Lymph # (Auto) [place] # (Auto) Eos # (Auto) Baso # (Auto) Neutrophils % (Manual) Lymphocytes % (Manual) Monocytes % (Manual) Eosinophils % (Manual) Basophils % (Manual) Toxic Granulation Platelet Estimate Hypochromasia (manual) Anisocytosis (manual) Macrocytosis (manual) PT INR APTT Sodium Potassium Chloride Carbon Dioxide Anion Gap BUN Creatinine Est GFR ( Amer) Est GFR (Non-Af Amer) POC Glucose (mg/dL) 187 H Random Glucose Calcium Phosphorus Magnesium Total Bilirubin AST ALT Alkaline Phosphatase Ammonia Total Protein Albumin Globulin Albumin/Globulin Ratio Prostate Specific Ag Microbiology 01/18/19 12:20 Blood-Venous Blood Culture - Final NO GROWTH AFTER 5 DAYS 01/18/19 12:20 Blood-Venous Gram Stain - Final TEST NOT PERFORMED 01/18/19 17:39 Blood-Venous Blood Culture - Preliminary NO GROWTH AFTER 4 DAYS 01/10/19 21:25 Trachasp Gram Stain - Final 01/10/19 21:25 Trachasp Sputum Culture - Final Klebsiella Oxytoca Pseudomonas Aeruginosa 01/15/19 18:40 Blood Blood Culture - Final NO GROWTH AFTER 5 DAYS 01/15/19 18:40 Blood Gram Stain - Final TEST NOT PERFORMED 01/15/19 17:45 Blood Blood Culture - Final NO GROWTH AFTER 5 DAYS 01/15/19 17:45 Blood Gram Stain - Final TEST NOT PERFORMED 01/17/19 18:20 Sputum Gram Stain - Final 01/17/19 18:20 Sputum Sputum Culture - Final Pseudomonas Aeruginosa 01/15/19 07:16 Urine,Howe Urine Culture - Final Beta Hemolytic Strep Group B 01/07/19 18:08 Urine,Howe Urine Culture - Final Beta Hemolytic Strep Group B 01/06/19 10:41 Naris MRSA Culture (Admit) - Final MRSA NOT DETECTED Assessment and Plan (1) Hospital-acquired bacterial pneumonia Status: Acute (2) Acute respiratory failure Status: Resolved - Assessment and Plan (Free Text) Assessment: A/P- 69 year old male with h/o ETOH abuse, liver cirrhosis, liver cancer undergoing chemo who was admitted with change in MS . s/p extubation 4 days ago. clinically much improved. afebrile past 4 days. blood cx- neg x 4 Et tube cx- KLebsilele and pseudomonas not ESBL sputum cx- pseudomonas cx Plan- continue with Meropnem 1 gram IV q8 hours.day #6. advise at least 2 more days of IV meropenem for both pseudomonas and klebsiella pneumonia treatment. monitor aspiration precautions. all labs and imaging reviewed. Critical care time spent 40 minutes.
--- NOTE | 2019-01-23 09:51 | CP.CCUPN ---
<[place]Sultan - Last Filed: 01/23/19 09:57> CCU Subjective - Physician Review Subjective (Free Text): 01/23/19 09:48 68 yo Male with PMHx of DMII, Gastritis, HTN, Hypercholesterolemia, Chronic Kidney Disease, liver cirrhosis, hepatic encephalopathy and liver malignancy was brought in to the emergency room on 01/06/19 by the family for evaluation of altered mental status, confusion and abdominal pain. Patient was initially admitted to Med/surg unit, however was transferred to the intensive care unit later in the evening for his worsening of his mental status and intubated. Patient was intubated from 01/06/19 to 01/20/19. Patient was extubated on 01/20/19, saturating well at 98-99% with VM at 35% with 7L Oxygen. Patient seen and examined in ICU this AM. Overnight events and nurses notes reviewed. He is awake, alert, and follows simple command. Not in acute distress. Patient is on Venti mask 35% with 7 L O2 saturating well. Patient has been afebrile since 01/18/19 and has stable vitals. Denies any chest pain, abdominal pain, nausea, vomiting, fever or chills. Failed swallow eval yesterday Will get PICC line for better IV access. Serum sodium is 148 and patient is receiving 300 cc saline flush q4 hrs Patient has flexiseal placed due to loose stool (had 1 L stool output last night) and straight cath performed this morning draining 450 cc urine. I/O 2808/2600 over last 24 hours. NG tube feeding with Suplena at 50 ml/hr with 300 cc saline flush every 4 hours. Has insulin coverage with Lispro q4hr and will increase Levemir to 25 units q12 hrs. CCU Objective - Vital Signs / Intake & Output Vital Signs (Last 4 hours): Vital Signs Temp Pulse Resp BP Pulse Ox 01/23/19 08:47 78 113/56 L 01/23/19 08:45 78 113/56 L 01/23/19 08:00 97.7 F 79 21 113/56 L 96 01/23/19 06:00 97 F L 74 19 111/60 99 Intake and Output (Last 8hrs): Intake & Output 01/22/19 01/23/19 01/23/19 22:59 06:59 14:59 Intake Total 904 800 50 Output Total 1000 1200 Balance -96 -400 50 Weight 95.254 kg Intake: IV 4 Intake, Piggyback 100 100 Tube Feeding 400 400 50 Free Water Flush 400 300 Output: Urine 450 Straight 450 Stool 1000 750 Other: # Voids Urine, Voided 1 - Physical Exam Head: Positive for: Atraumatic, Normocephalic Pupils: Positive for: PERRL Extroacular Muscles: Positive for: EOMI Conjunctiva: Positive for: Icteric Ears: Positive for: Normal Mouth: Positive for: Moist Mucous Membranes Nose (External): Positive for: Atraumatic Respiratory/Chest: Positive for: Clear to Auscultation, Good Air Exchange, Other (increased breath sounds) Cardiovascular: Positive for: Regular Rate and Rhythm Abdomen: Positive for: Normal Bowel Sounds. Negative for: Tenderness, Distention Upper Extremity: Positive for: Swelling (improved and eccymosis on medial aspects of right forearm.) Lower Extremity: Positive for: Normal Inspection. Negative for: Tenderness Skin: Positive for: Warm, Normal Color Psychiatric: Positive for: Alert - Medications Active Medications: Active Medications Generic Name Dose Route Start Last Admin Trade Name Freq PRN Reason Stop Dose Admin Acetaminophen 650 mg 01/18/19 13:39 Tylenol 650mg/20.3ml Solution Ud NG Q6 PRN for temp>100.4 deg f Acetylcysteine 2 ml 01/17/19 20:00 01/23/19 07:23 Acetylcysteine 20% INH 2 ml RBID JOANNA Administration Albuterol Sulfate 2.5 mg 01/19/19 20:00 01/23/19 07:23 Albuterol 0.083% Inhal Mana (2.5 Mg/3 Ml) Ud INH 2.5 mg RBID JOANNA Administration Carvedilol 6.25 mg 01/06/19 21:00 01/23/19 08:47 Coreg NG 6.25 mg Q12 JOANNA Administration Cilostazol 50 mg 01/06/19 10:30 01/07/19 10:22 Pletal PO Not Given Q12 JOANNA Dextrose 0 ml 01/21/19 21:26 Dextrose 50% Inj IV STAT PRN Hypoglycemia Protocol Protocol Dextrose 0 gm 01/21/19 21:26 Glutose 15 PO ONCE PRN Hypoglycemia Protocol Protocol Folic Acid 1 mg 01/10/19 09:00 01/23/19 08:46 Folic Acid GT 1 mg DAILY JOANNA Administration Glucagon 0 mg 01/21/19 21:26 Glucagen Diagnostic Kit IM STAT PRN Hypoglycemia Protocol Protocol Hydralazine HCl 25 mg 01/12/19 13:00 01/23/19 08:45 Apresoline PO 25 mg TID JOANNA Administration Meropenem 1 gm/ Sodium 100 mls @ 100 mls/hr 01/18/19 17:15 01/23/19 08:43 Chloride IVPB 100 mls/hr Q8 JOANNA Administration Protocol Insulin Detemir 25 units 01/23/19 09:00 Levemir SC Q12 JOANNA Insulin Human Lispro 0 units 01/22/19 01:00 01/23/19 09:21 Humalog SC 2 units Q4 JOANNA Administration Protocol Lactulose 20 gm 01/13/19 06:15 01/23/19 09:43 Enulose GT 20 gm Q4H JOANNA Administration Levothyroxine Sodium 50 mcg 01/09/19 06:30 01/23/19 05:35 Synthroid PO 50 mcg DAILY@0630 JOANNA Administration Pantoprazole Sodium 40 mg 01/07/19 13:15 01/23/19 08:45 Protonix Susp NG 40 mg DAILY JOANNA Administration Rifaximin 550 mg 01/11/19 17:00 01/23/19 08:45 Xifaxan PO 550 mg BID JOANNA Administration Protocol Tamsulosin HCl 0.4 mg 01/22/19 12:15 01/23/19 08:45 Flomax NG 0.4 mg DAILY JOANNA Administration Thiamine HCl 100 mg 01/10/19 09:00 01/23/19 08:46 Vitamin B1 Tab GT 100 mg DAILY JOANNA Administration - Patient Studies Lab Studies: Microbiology Studies 01/18/19 17:39 Blood Culture - Preliminary Blood-Venous NO GROWTH AFTER 4 DAYS 01/18/19 12:20 Blood Culture - Preliminary Blood-Venous NO GROWTH AFTER 4 DAYS Lab Studies 01/23/19 01/23/19 01/23/19 Range/Units 05:40 05:40 05:31 WBC 8.7 (4.8-10.8) K/uL RBC 2.84 L (4.40-5.90) Mil/uL Hgb 11.2 L (12.0-18.0) g/dL Hct 32.7 L (35.0-51.0) % MCV 115.3 H (80.0-94.0) fl MCH 39.3 H (27.0-31.0) pg MCHC 34.1 (33.0-37.0) g/dL RDW 16.7 H (11.5-14.5) % Plt Count 126 L (130-400) K/uL MPV 11.0 (7.2-11.7) fl Neut % (Auto) 79.6 H (50.0-75.0) % Lymph % (Auto) 8.1 L (20.0-40.0) % [place] % (Auto) 8.6 (0.0-10.0) % Eos % (Auto) 3.2 (0.0-4.0) % Baso % (Auto) 0.5 (0.0-2.0) % Neut # (Auto) 6.9 (1.8-7.0) K/uL Lymph # (Auto) 0.7 L (1.0-4.3) K/uL [place] # (Auto) 0.8 (0.0-0.8) K/uL Eos # (Auto) 0.3 (0.0-0.7) K/uL Baso # (Auto) 0.0 (0.0-0.2) K/uL Neutrophils % (Manual) 79 H (42-75) % Lymphocytes % (Manual) 10 L (20-50) % Monocytes % (Manual) 8 (0-10) % Eosinophils % (Manual) 2 (0-7) % Basophils % (Manual) 1 (0-2) % Toxic Granulation Present Platelet Estimate Decreased L (NORMAL) Hypochromasia (manual) Slight Anisocytosis (manual) Slight Macrocytosis (manual) Moderate Sodium 148 (132-148) mmol/l Potassium 3.8 (3.6-5.0) MMOL/L Chloride 121 H (98-107) mmol/L Carbon Dioxide 27 (22-30) mmol/L Anion Gap 4 L (10-20) BUN 47 H (9-20) mg/dl Creatinine 0.8 (0.8-1.5) mg/dl Est GFR ( Amer) > 60 Est GFR (Non-Af Amer) > 60 POC Glucose (mg/dL) 224 H (65-110) mg/dL Random Glucose 237 H (75-110) mg/dL Calcium 8.7 (8.4-10.2) mg/dL Phosphorus 2.8 (2.5-4.5) mg/dl Magnesium 2.6 H (1.6-2.3) MG/DL Total Bilirubin 2.0 H (0.2-1.3) mg/dl AST 94 H (17-59) U/L ALT 62 (21-72) U/L Alkaline Phosphatase 415 H D (38-126) U/L Total Protein 5.6 L (6.3-8.2) G/DL Albumin 1.9 L (3.5-5.0) g/dL Globulin 3.7 (2.2-3.9) gm/dL Albumin/Globulin Ratio 0.5 L (1.0-2.1) Prostate Specific Ag 0.215 (0.00-4.0) ng/ML 01/23/19 01/22/19 01/22/19 Range/Units 01:22 21:08 16:53 WBC (4.8-10.8) K/uL RBC (4.40-5.90) Mil/uL Hgb (12.0-18.0) g/dL Hct (35.0-51.0) % MCV (80.0-94.0) fl MCH (27.0-31.0) pg MCHC (33.0-37.0) g/dL RDW (11.5-14.5) % Plt Count (130-400) K/uL MPV (7.2-11.7) fl Neut % (Auto) (50.0-75.0) % Lymph % (Auto) (20.0-40.0) % [place] % (Auto) (0.0-10.0) % Eos % (Auto) (0.0-4.0) % Baso % (Auto) (0.0-2.0) % Neut # (Auto) (1.8-7.0) K/uL Lymph # (Auto) (1.0-4.3) K/uL [place] # (Auto) (0.0-0.8) K/uL Eos # (Auto) (0.0-0.7) K/uL Baso # (Auto) (0.0-0.2) K/uL Neutrophils % (Manual) (42-75) % Lymphocytes % (Manual) (20-50) % Monocytes % (Manual) (0-10) % Eosinophils % (Manual) (0-7) % Basophils % (Manual) (0-2) % Toxic Granulation Platelet Estimate (NORMAL) Hypochromasia (manual) Anisocytosis (manual) Macrocytosis (manual) Sodium (132-148) mmol/l Potassium (3.6-5.0) MMOL/L Chloride (98-107) mmol/L Carbon Dioxide (22-30) mmol/L Anion Gap (10-20) BUN (9-20) mg/dl Creatinine (0.8-1.5) mg/dl Est GFR ( Amer) Est GFR (Non-Af Amer) POC Glucose (mg/dL) 236 H 299 H 312 H (65-110) mg/dL Random Glucose (75-110) mg/dL Calcium (8.4-10.2) mg/dL Phosphorus (2.5-4.5) mg/dl Magnesium (1.6-2.3) MG/DL Total Bilirubin (0.2-1.3) mg/dl AST (17-59) U/L ALT (21-72) U/L Alkaline Phosphatase (38-126) U/L Total Protein (6.3-8.2) G/DL Albumin (3.5-5.0) g/dL Globulin (2.2-3.9) gm/dL Albumin/Globulin Ratio (1.0-2.1) Prostate Specific Ag (0.00-4.0) ng/ML 01/22/19 01/22/19 Range/Units 13:43 10:05 WBC (4.8-10.8) K/uL RBC (4.40-5.90) Mil/uL Hgb (12.0-18.0) g/dL Hct (35.0-51.0) % MCV (80.0-94.0) fl MCH (27.0-31.0) pg MCHC (33.0-37.0) g/dL RDW (11.5-14.5) % Plt Count (130-400) K/uL MPV (7.2-11.7) fl Neut % (Auto) (50.0-75.0) % Lymph % (Auto) (20.0-40.0) % [place] % (Auto) (0.0-10.0) % Eos % (Auto) (0.0-4.0) % Baso % (Auto) (0.0-2.0) % Neut # (Auto) (1.8-7.0) K/uL Lymph # (Auto) (1.0-4.3) K/uL [place] # (Auto) (0.0-0.8) K/uL Eos # (Auto) (0.0-0.7) K/uL Baso # (Auto) (0.0-0.2) K/uL Neutrophils % (Manual) (42-75) % Lymphocytes % (Manual) (20-50) % Monocytes % (Manual) (0-10) % Eosinophils % (Manual) (0-7) % Basophils % (Manual) (0-2) % Toxic Granulation Platelet Estimate (NORMAL) Hypochromasia (manual) Anisocytosis (manual) Macrocytosis (manual) Sodium (132-148) mmol/l Potassium (3.6-5.0) MMOL/L Chloride (98-107) mmol/L Carbon Dioxide (22-30) mmol/L Anion Gap (10-20) BUN (9-20) mg/dl Creatinine (0.8-1.5) mg/dl Est GFR ( Amer) Est GFR (Non-Af Amer) POC Glucose (mg/dL) 362 H 356 H (65-110) mg/dL Random Glucose (75-110) mg/dL Calcium (8.4-10.2) mg/dL Phosphorus (2.5-4.5) mg/dl Magnesium (1.6-2.3) MG/DL Total Bilirubin (0.2-1.3) mg/dl AST (17-59) U/L ALT (21-72) U/L Alkaline Phosphatase (38-126) U/L Total Protein (6.3-8.2) G/DL Albumin (3.5-5.0) g/dL Globulin (2.2-3.9) gm/dL Albumin/Globulin Ratio (1.0-2.1) Prostate Specific Ag (0.00-4.0) ng/ML Laboratory Results - last 24 hr 01/22/19 01/22/19 01/22/19 10:05 13:43 16:53 WBC RBC Hgb Hct MCV MCH MCHC RDW Plt Count MPV Neut % (Auto) Lymph % (Auto) [place] % (Auto) Eos % (Auto) Baso % (Auto) Neut # (Auto) Lymph # (Auto) [place] # (Auto) Eos # (Auto) Baso # (Auto) Neutrophils % (Manual) Lymphocytes % (Manual) Monocytes % (Manual) Eosinophils % (Manual) Basophils % (Manual) Toxic Granulation Platelet Estimate Hypochromasia (manual) Anisocytosis (manual) Macrocytosis (manual) Sodium Potassium Chloride Carbon Dioxide Anion Gap BUN Creatinine Est GFR ( Amer) Est GFR (Non-Af Amer) POC Glucose (mg/dL) 356 H 362 H 312 H Random Glucose Calcium Phosphorus Magnesium Total Bilirubin AST ALT Alkaline Phosphatase Total Protein Albumin Globulin Albumin/Globulin Ratio Prostate Specific Ag 01/22/19 01/23/19 01/23/19 21:08 01:22 05:31 WBC RBC Hgb Hct MCV MCH MCHC RDW Plt Count MPV Neut % (Auto) Lymph % (Auto) [place] % (Auto) Eos % (Auto) Baso % (Auto) Neut # (Auto) Lymph # (Auto) [place] # (Auto) Eos # (Auto) Baso # (Auto) Neutrophils % (Manual) Lymphocytes % (Manual) Monocytes % (Manual) Eosinophils % (Manual) Basophils % (Manual) Toxic Granulation Platelet Estimate Hypochromasia (manual) Anisocytosis (manual) Macrocytosis (manual) Sodium Potassium Chloride Carbon Dioxide Anion Gap BUN Creatinine Est GFR ( Amer) Est GFR (Non-Af Amer) POC Glucose (mg/dL) 299 H 236 H 224 H Random Glucose Calcium Phosphorus Magnesium Total Bilirubin AST ALT Alkaline Phosphatase Total Protein Albumin Globulin Albumin/Globulin Ratio Prostate Specific Ag 01/23/19 01/23/19 05:40 05:40 WBC 8.7 RBC 2.84 L Hgb 11.2 L Hct 32.7 L MCV 115.3 H MCH 39.3 H MCHC 34.1 RDW 16.7 H Plt Count 126 L MPV 11.0 Neut % (Auto) 79.6 H Lymph % (Auto) 8.1 L [place] % (Auto) 8.6 Eos % (Auto) 3.2 Baso % (Auto) 0.5 Neut # (Auto) 6.9 Lymph # (Auto) 0.7 L [place] # (Auto) 0.8 Eos # (Auto) 0.3 Baso # (Auto) 0.0 Neutrophils % (Manual) 79 H Lymphocytes % (Manual) 10 L Monocytes % (Manual) 8 Eosinophils % (Manual) 2 Basophils % (Manual) 1 Toxic Granulation Present Platelet Estimate Decreased L Hypochromasia (manual) Slight Anisocytosis (manual) Slight Macrocytosis (manual) Moderate Sodium 148 Potassium 3.8 Chloride 121 H Carbon Dioxide 27 Anion Gap 4 L BUN 47 H Creatinine 0.8 Est GFR ( Amer) > 60 Est GFR (Non-Af Amer) > 60 POC Glucose (mg/dL) Random Glucose 237 H Calcium 8.7 Phosphorus 2.8 Magnesium 2.6 H Total Bilirubin 2.0 H AST 94 H ALT 62 Alkaline Phosphatase 415 H D Total Protein 5.6 L Albumin 1.9 L Globulin 3.7 Albumin/Globulin Ratio 0.5 L Prostate Specific Ag 0.215 Fingerstick Blood Sugar Results: 212 Review of Systems - Review of Systems All systems: reviewed and no additional remarkable complaints except (as mentioned in HPI) Assessment/Plan (1) Acute respiratory failure Current Visit: Yes Status: Resolved Priority: High Comment: Patient was orally intubated and mechanically ventilated from 01/06/19 to 01/20/19 due to altered mental status from hepatic encephalopathy and hyperammonemia Patient was successfully extubated on 01/20/19, saturating well on VM. Frequent neuro check Maintain aspiration precaution Mucomyst q12 with albuterol for mucus plug Orgogastric Tube feeding Suplena at 50 cc/hr. Failed swallow eval yesterday. c/w physical therapy (2) Hospital-acquired bacterial pneumonia Current Visit: Yes Status: Acute Comment: Sputum culture o n 01/17/19 grew pseudomonas Sputum culture on 01/10/19 showed Pseudomonas and Klebsiella chest CT on 01/15/19 shows posterior bibasilar pneumonic consolidation -ID consult: recs appreciated -c/w Meropenem 1 gm q8 (day 6) -Repeat CXR tomorrow (3) Altered mental status Current Visit: Yes Status: Resolved Priority: High Comment: -Head CT on 01/15/19 is negative for intracranial pathology -Improving -successfully extubed on 01/20/19 (4) Hepatic encephalopathy Current Visit: Yes Status: Resolved Priority: High Comment: Continued improvement of mental status c/w lactulose and rifaximin Magnesium citrate 300 cc PRN Frequent neuro check (5) Hypernatremia Current Visit: Yes Status: Acute Comment: -Nephologist Dr. Lorenzo on board -Serum Na 148 today. -c/w water flush 300 cc q4hr per nephro necs (6) Hyperammonemia Current Visit: Yes Status: Acute Priority: High Comment: -Resolved -Ammonia level 33 on 01/20/19 -c/w lactulose and rifaximin -f/u ammonia level (7) Thrombocytopenia Current Visit: Yes Status: Acute Comment: improving (8) DM type 2 (diabetes mellitus, type 2) Current Visit: No Status: Acute Comment: -not controlled -Increase levemir to 25 units SC Q12 -C/W lispro sliding scale q4 -Monitor blood glucose -Consider endocrine consult if glucose remains uncontrolled. <Sinan Santana - Last Filed: 01/23/19 23:10> Assessment/Plan - Assessment and Plan (Free Text) Plan: Attestation: Patient seen and examined at the bedside with Resident Dr. Lzieth Paris; and I agree with his outline of plans and management documented above as discussed on AM rounds reflecting my review of all applicable clinical data, and participation in the care of the patient throughout the day in ICU; today, January 23, 2019.
[2019-01-23 11:03] LABS: INR 1.4; PROTHROMBIN TIME 16.1 Seconds (9.8-13.1)
[2019-01-23 11:05] LABS: PARTIAL THROMBOPLASTIN TIME 31.5 Seconds (25.6-37.1)
[2019-01-23] MEDS: Insulin Detemir 100 Units/ml Inj SC SCH ×2 (11:15→21:39)
--- NOTE | 2019-01-23 12:40 | CP.PCM.PN ---
Subjective - Date & Time of Evaluation Date of Evaluation: 01/23/19 Time of Evaluation: 12:42 - Subjective Subjective: Patient awake Patient responding Vital signs stable Objective - Vital Signs/Intake and Output Vital Signs (last 24 hours): Temp Pulse Resp BP Pulse Ox 97.7 F 75 22 104/74 97 01/23/19 08:00 01/23/19 12:12 01/23/19 11:06 01/23/19 12:12 01/23/19 11:06 Intake and Output: 01/23/19 01/23/19 06:59 18:59 Intake Total 1300 550 Output Total 1200 Balance 100 550 - Medications Medications: Current Medications Acetaminophen (Tylenol 650mg/20.3ml Solution Ud) 650 mg NG Q6 PRN PRN Reason: for temp>100.4 deg f Acetylcysteine (Acetylcysteine 20%) 2 ml INH RBID JOANNA Last Admin: 01/23/19 07:23 Dose: 2 ml Albuterol Sulfate (Albuterol 0.083% Inhal Mana (2.5 Mg/3 Ml) Ud) 2.5 mg INH RBID [facility] Last Admin: 01/23/19 07:23 Dose: 2.5 mg Carvedilol (Coreg) 6.25 mg NG Q12 [facility] Last Admin: 01/23/19 08:47 Dose: 6.25 mg Cilostazol (Pletal) 50 mg PO Q12 [facility] Last Admin: 01/07/19 10:22 Dose: Not Given Dextrose (Dextrose 50% Inj) 0 ml IV STAT PRN; Protocol PRN Reason: Hypoglycemia Protocol Dextrose (Glutose 15) 0 gm PO ONCE PRN; Protocol PRN Reason: Hypoglycemia Protocol Folic Acid (Folic Acid) 1 mg GT DAILY [facility] Last Admin: 01/23/19 08:46 Dose: 1 mg Glucagon (Glucagen Diagnostic Kit) 0 mg IM STAT PRN; Protocol PRN Reason: Hypoglycemia Protocol Hydralazine HCl (Apresoline) 25 mg PO TID [facility] Last Admin: 01/23/19 12:12 Dose: Not Given Meropenem 1 gm/ Sodium (Chloride) 100 mls @ 100 mls/hr IVPB Q8 JOANNA; Protocol Last Admin: 01/23/19 08:43 Dose: 100 mls/hr Insulin Detemir (Levemir) 25 units SC Q12 [facility] Last Admin: 01/23/19 11:15 Dose: 25 u Insulin Human Lispro (Humalog) 0 units SC Q4 [facility]; Protocol Last Admin: 01/23/19 09:21 Dose: 2 units Lactulose (Enulose) 20 gm GT Q4H [facility] Last Admin: 01/23/19 09:43 Dose: 20 gm Levothyroxine Sodium (Synthroid) 50 mcg PO DAILY@0630 [facility] Last Admin: 01/23/19 05:35 Dose: 50 mcg Pantoprazole Sodium (Protonix Susp) 40 mg NG DAILY [facility] Last Admin: 01/23/19 08:45 Dose: 40 mg Rifaximin (Xifaxan) 550 mg PO BID [facility]; Protocol Last Admin: 01/23/19 08:45 Dose: 550 mg Tamsulosin HCl (Flomax) 0.4 mg NG DAILY [facility] Last Admin: 01/23/19 08:45 Dose: 0.4 mg Thiamine HCl (Vitamin B1 Tab) 100 mg GT DAILY [facility] Last Admin: 01/23/19 08:46 Dose: 100 mg - Labs Labs: 01/23/19 05:40 01/23/19 05:40 PT 16.1 Seconds (9.8-13.1) H 01/23/19 10:30 INR 1.4 01/23/19 10:30 APTT 31.5 Seconds (25.6-37.1) 01/23/19 10:30 - Constitutional Appears: No Acute Distress - Eye Exam Eye Exam: Conjunctival injection - ENT Exam ENT Exam: Mucous Membranes Moist - Respiratory Exam Respiratory Exam: NORMAL BREATHING PATTERN. absent: Chest Wall Tenderness - Cardiovascular Exam Cardiovascular Exam: absent: Gallop, JVD, Rubs - GI/Abdominal Exam GI & Abdominal Exam: Soft, Normal Bowel Sounds - Extremities Exam Extremities Exam: absent: Calf Tenderness - Back Exam Back Exam: absent: CVA tenderness (L), CVA tenderness (R) - Neurological Exam Neurological Exam: Alert, Awake - Skin Skin Exam: absent: Cyanosis Assessment and Plan (1) Hyponatremia Status: Acute (2) NIRAJ (acute kidney injury) Assessment & Plan: Acute kidney injury recovering hypernatremia Patient diagnosed with liver cirrhosis and liver malignancy ?? Hepatic encephalopathy Diabetes mellitus Recommendation Patient extubated Serum sodium came down to 148 continue NG tube with water flushing with 300 cc Kidney function stable Status: Resolved (3) Acute respiratory failure Status: Resolved (4) Altered mental status Status: Resolved (5) Hepatic encephalopathy Status: Resolved (6) Hyperammonemia Status: Acute (7) Liver mass Status: Acute (8) Thrombocytopenia Status: Acute
--- NOTE | 2019-01-23 18:12 | CP.PCM.PN ---
Subjective - Date & Time of Evaluation Date of Evaluation: 01/23/19 Objective - Vital Signs/Intake and Output Vital Signs (last 24 hours): Temp Pulse Resp BP Pulse Ox 96.5 F L 75 17 98/44 L 98 01/23/19 16:00 01/23/19 17:00 01/23/19 17:00 01/23/19 17:00 01/23/19 17:00 Intake and Output: 01/23/19 01/23/19 06:59 18:59 Intake Total 1300 1450 Output Total 1200 350 Balance 100 1100 - Medications Medications: Current Medications Acetaminophen (Tylenol 650mg/20.3ml Solution Ud) 650 mg NG Q6 PRN PRN Reason: for temp>100.4 deg f Acetylcysteine (Acetylcysteine 20%) 2 ml INH RBID JOANNA Last Admin: 01/23/19 07:23 Dose: 2 ml Albuterol Sulfate (Albuterol 0.083% Inhal Mana (2.5 Mg/3 Ml) Ud) 2.5 mg INH RBID JOANNA Last Admin: 01/23/19 07:23 Dose: 2.5 mg Carvedilol (Coreg) 6.25 mg NG Q12 [facility]ANNA Last Admin: 01/23/19 08:47 Dose: 6.25 mg Cilostazol (Pletal) 50 mg PO Q12 [facility] Last Admin: 01/07/19 10:22 Dose: Not Given Dextrose (Dextrose 50% Inj) 0 ml IV STAT PRN; Protocol PRN Reason: Hypoglycemia Protocol Dextrose (Glutose 15) 0 gm PO ONCE PRN; Protocol PRN Reason: Hypoglycemia Protocol Folic Acid (Folic Acid) 1 mg GT DAILY [facility] Last Admin: 01/23/19 08:46 Dose: 1 mg Glucagon (Glucagen Diagnostic Kit) 0 mg IM STAT PRN; Protocol PRN Reason: Hypoglycemia Protocol Hydralazine HCl (Apresoline) 25 mg PO TID [facility] Last Admin: 01/23/19 16:31 Dose: Not Given Meropenem 1 gm/ Sodium (Chloride) 100 mls @ 100 mls/hr IVPB Q8 JOANNA; Protocol Last Admin: 01/23/19 16:26 Dose: 100 mls/hr Insulin Detemir (Levemir) 25 units SC Q12 JOANNA Last Admin: 01/23/19 11:15 Dose: 25 u Insulin Human Lispro (Humalog) 0 units SC Q4 JOANNA; Protocol Last Admin: 01/23/19 16:27 Dose: 1 units Lactulose (Enulose) 20 gm GT Q4H [facility]ANNA Last Admin: 01/23/19 17:48 Dose: 20 gm Levothyroxine Sodium (Synthroid) 50 mcg PO DAILY@0630 [facility] Last Admin: 01/23/19 05:35 Dose: 50 mcg Pantoprazole Sodium (Protonix Susp) 40 mg NG DAILY [facility]AN[facility] Last Admin: 01/23/19 08:45 Dose: 40 mg Rifaximin (Xifaxan) 550 mg PO BID JOANNA; Protocol Last Admin: 01/23/19 16:26 Dose: 550 mg Tamsulosin HCl (Flomax) 0.4 mg NG DAILY [facility] Last Admin: 01/23/19 08:45 Dose: 0.4 mg Thiamine HCl (Vitamin B1 Tab) 100 mg GT DAILY [facility] Last Admin: 01/23/19 08:46 Dose: 100 mg - Labs Labs: 01/23/19 05:40 01/23/19 05:40 PT 16.1 Seconds (9.8-13.1) H 01/23/19 10:30 INR 1.4 01/23/19 10:30 APTT 31.5 Seconds (25.6-37.1) 01/23/19 10:30 Assessment and Plan (1) Acute respiratory failure Status: Resolved (2) Altered mental status Status: Resolved (3) Alcoholic cirrhosis of liver Status: Chronic (4) Hepatic encephalopathy Status: Resolved (5) DM type 2 (diabetes mellitus, type 2) Status: Acute
[2019-01-24] MEDS: Meropenem 1 GM in Sodium Chloride 0.9% 100 ML IVPB SCH ×3 (00:59→16:16)
[2019-01-24] MEDS: Insulin Lispro (humaLOG) 100 Units/ml Inj SC SCH ×6 (01:00→22:05)
[2019-01-24 05:30] LABS: BASO % 0.5 % (0.0-2.0); EOS # 0.2 K/uL (0.0-0.7); EOS % 2.7 % (0.0-4.0); HEMOGLOBIN 11.6 g/dL (12.0-18.0); LYMPH # 0.8 K/uL (1.0-4.3); LYMPH % 9.1 % (20.0-40.0); MEAN CORPUSCULAR HEMOGLOBIN 39.1 pg (27.0-31.0); MEAN CORPUSCULAR HGB CONC 34.2 g/dL (33.0-37.0); MONO # 0.8 K/uL (0.0-0.8); MONO % 9.3 % (0.0-10.0); NEUT # 6.7 K/uL (1.8-7.0); NEUT % 78.4 % (50.0-75.0); RBC 2.97 Mil/uL (4.40-5.90); RED CELL DISTRIBUTION WIDTH 16.9 % (11.5-14.5); WHITE BLOOD COUNT 8.6 K/uL (4.8-10.8)
[2019-01-24] MEDS: Levothyroxine 50 MCG TAB PO SCH (05:36)
[2019-01-24 05:49] LABS: ALB/GLOB RATIO 0.5 (1.0-2.1); ALBUMIN 2.1 g/dL (3.5-5.0); ALT/SGPT 62 U/L (21-72); AST/SGOT 130 U/L (17-59); BLOOD UREA NITROGEN 41 mg/dl (9-20); CALCIUM 9.1 mg/dL (8.4-10.2); GFR NON-AFRICAN AMERICAN > 60
[2019-01-24 05:57] LABS: MEAN CELL VOLUME 114.4 fl (80.0-94.0)
[2019-01-24] MEDS: Acetylcysteine 20% Inhal Soln (4ml) INH SCH ×2 (08:01→19:03)
[2019-01-24] MEDS: Albuterol 0.083% Inhal Sol (2.5 mg/3 mL) UD INH SCH ×2 (08:02→19:03)
[2019-01-24] MEDS: Pantoprazole 40 mg Susp UD NG SCH (08:25)
[2019-01-24] MEDS: Insulin Detemir 100 Units/ml Inj SC SCH ×2 (08:28→22:04)
--- NOTE | 2019-01-24 08:50 | CP.PCM.PN ---
Subjective - Date & Time of Evaluation Date of Evaluation: 01/24/19 Time of Evaluation: 08:49 - Subjective Subjective: Patient doing much better more awake. Vital signs stable Patient pulled the NG tube and it is back in place and is being evaluated for s wallow evaluation Objective - Vital Signs/Intake and Output Vital Signs (last 24 hours): Temp Pulse Resp BP Pulse Ox 96.4 F L 78 13 117/52 L 99 01/24/19 08:00 01/24/19 08:28 01/24/19 08:00 01/24/19 08:28 01/24/19 08:00 Intake and Output: 01/24/19 01/24/19 06:59 18:59 Intake Total 800 350 Output Total 1550 Balance -750 350 - Medications Medications: Current Medications Acetaminophen (Tylenol 650mg/20.3ml Solution Ud) 650 mg NG Q6 PRN PRN Reason: for temp>100.4 deg f Acetylcysteine (Acetylcysteine 20%) 2 ml INH RBID JOANNA Last Admin: 01/24/19 08:01 Dose: 2 ml Albuterol Sulfate (Albuterol 0.083% Inhal Mana (2.5 Mg/3 Ml) Ud) 2.5 mg INH RBID JOANNA Last Admin: 01/24/19 08:02 Dose: 2.5 mg Carvedilol (Coreg) 6.25 mg NG Q12 JOANNA Last Admin: 01/23/19 21:39 Dose: Not Given Cilostazol (Pletal) 50 mg PO Q12 [facility] Last Admin: 01/07/19 10:22 Dose: Not Given Dextrose (Dextrose 50% Inj) 0 ml IV STAT PRN; Protocol PRN Reason: Hypoglycemia Protocol Last Admin: 01/24/19 04:36 Dose: 50 ml Dextrose (Glutose 15) 0 gm PO ONCE PRN; Protocol PRN Reason: Hypoglycemia Protocol Folic Acid (Folic Acid) 1 mg GT DAILY [facility] Last Admin: 01/24/19 08:25 Dose: 1 mg Glucagon (Glucagen Diagnostic Kit) 0 mg IM STAT PRN; Protocol PRN Reason: Hypoglycemia Protocol Hydralazine HCl (Apresoline) 25 mg PO TID [facility] Last Admin: 01/24/19 08:28 Dose: 25 mg Meropenem 1 gm/ Sodium (Chloride) 100 mls @ 100 mls/hr IVPB Q8 JOANNA; Protocol Last Admin: 01/24/19 08:26 Dose: 100 mls/hr Insulin Detemir (Levemir) 25 units SC Q12 [facility] Last Admin: 01/24/19 08:28 Dose: 25 u Insulin Human Lispro (Humalog) 0 units SC Q4 [facility]; Protocol Last Admin: 01/24/19 05:19 Dose: Not Given Lactulose (Enulose) 20 gm GT Q4H [facility] Last Admin: 01/24/19 05:19 Dose: 20 gm Levothyroxine Sodium (Synthroid) 50 mcg PO DAILY@0630 [facility] Last Admin: 01/24/19 05:36 Dose: 50 mcg Pantoprazole Sodium (Protonix Susp) 40 mg NG DAILY [facility] Last Admin: 01/24/19 08:25 Dose: 40 mg Rifaximin (Xifaxan) 550 mg PO BID [facility]; Protocol Last Admin: 01/24/19 08:24 Dose: 550 mg Tamsulosin HCl (Flomax) 0.4 mg NG DAILY [facility] Last Admin: 01/24/19 08:25 Dose: 0.4 mg Thiamine HCl (Vitamin B1 Tab) 100 mg GT DAILY [facility] Last Admin: 01/24/19 08:24 Dose: 100 mg - Labs Labs: 01/24/19 04:18 01/24/19 04:18 PT 16.1 Seconds (9.8-13.1) H 01/23/19 10:30 INR 1.4 01/23/19 10:30 APTT 31.5 Seconds (25.6-37.1) 01/23/19 10:30 - Constitutional Appears: No Acute Distress - Eye Exam Eye Exam: Conjunctival injection - ENT Exam ENT Exam: Mucous Membranes Dry - Respiratory Exam Respiratory Exam: absent: Chest Wall Tenderness, NORMAL BREATHING PATTERN - Cardiovascular Exam Cardiovascular Exam: absent: Gallop, JVD, Rubs - GI/Abdominal Exam GI & Abdominal Exam: Soft, Normal Bowel Sounds - Extremities Exam Extremities Exam: absent: Calf Tenderness - Back Exam Back Exam: absent: CVA tenderness (L), CVA tenderness (R) - Neurological Exam Neurological Exam: Awake - Skin Skin Exam: absent: Cyanosis Assessment and Plan (1) Hyponatremia Status: Acute (2) NIRAJ (acute kidney injury) Status: Resolved (3) Acute respiratory failure Status: Resolved (4) Altered mental status Status: Resolved (5) Hepatic encephalopathy Status: Resolved (6) Hyperammonemia Assessment & Plan: Acute kidney injury recovering hypernatremia Patient diagnosed with liver cirrhosis and liver malignancy ?? Hepatic encephalopathy improving Diabetes mellitus Recommendation Patient extubated Serum sodium came 149 continue NG tube with free water flushing with 300 cc, discussed with the resident to make sure he is receiving free water and not saline every 4 hours Kidney function stable Status: Acute (7) Liver mass Status: Acute (8) Thrombocytopenia Status: Acute
--- NOTE | 2019-01-24 10:34 | CP.CCUPN ---
<La FontaineColeman - Last Filed: 01/24/19 10:30> CCU Subjective - Physician Review Subjective (Free Text): 01/24/19 10:34 68 yo Male with PMHx of DMII, Gastritis, HTN, Hypercholesterolemia, Chronic Kidney Disease, liver cirrhosis, hepatic encephalopathy and liver malignancy was brought in to the emergency room on 01/06/19 by the family for evaluation of altered mental status, confusion and abdominal pain. Patient was initially admitted to Med/surg unit, however was transferred to the intensive care unit later in the evening for his worsening of his mental status and intubated. Patient was intubated from 01/06/19 to 01/20/19. Patient was extubated on 01/20/19, saturating well at 98-99% with 4 L NC oxygen. Patient seen and evaluated in ICU this AM. Overnight events and nurses notes reviewed. Patient was agitated last night and pulled out NG tube. Patient was off tube feeds for 1-2 hours and has an episode of hypoglycemia with glucose of 52 and received an amp of D50. This morning, he is awake, alert, and follows simple command. Not in acute distress. Remains afebrile with stable vitals. Patient feels thirsty and wants to drink. Swallow eval done today, patient's swallowing is improving but not passed yet. Denies any chest pain, abdominal pain, nausea, vomiting, fever or chills. PICC line today for better IV access. Serum sodium is 149 with serum osmolality of 343. Patient is receiving 300 cc free water flush q4 hrs. I/O 2750/2700 over last 24 hours. Patient is getting straight cath every 12 hours NG tube feeding with Suplena at 50 ml/hr with 300 cc free water flush every 4 hours. Has insulin coverage with Lispro q4hr and Levemir 25 units q12 hrs. Participating daily PT/OT CCU Objective - Vital Signs / Intake & Output Vital Signs (Last 4 hours): Vital Signs Temp Pulse Resp BP Pulse Ox 01/24/19 10:00 83 20 102/49 L 98 01/24/19 09:24 86 103/47 L 01/24/19 08:28 78 117/52 L 01/24/19 08:00 96.4 F L 79 13 117/52 L 99 Intake and Output (Last 8hrs): Intake & Output 01/23/19 01/24/19 01/24/19 22:59 06:59 14:59 Intake Total 1100 600 850 Output Total 1150 1550 Balance -50 -950 850 Intake: Intake, Piggyback 100 100 100 Oral 300 Tube Feeding 400 200 150 Free Water Flush 600 600 Output: Urine 350 750 Straight 350 750 Stool 800 800 - Physical Exam Head: Positive for: Atraumatic, Normocephalic Pupils: Positive for: PERRL Extroacular Muscles: Positive for: EOMI Conjunctiva: Positive for: Icteric Ears: Positive for: Normal Mouth: Positive for: Moist Mucous Membranes Nose (External): Positive for: Atraumatic Respiratory/Chest: Positive for: Clear to Auscultation, Good Air Exchange, Other (increased breath sounds) Cardiovascular: Positive for: Regular Rate and Rhythm Abdomen: Positive for: Normal Bowel Sounds. Negative for: Tenderness, Distention Upper Extremity: Positive for: Swelling (Left >Right and eccymosis on medial aspects of right forearm.) Lower Extremity: Positive for: Normal Inspection. Negative for: Tenderness Skin: Positive for: Warm, Normal Color Psychiatric: Positive for: Alert - Medications Active Medications: Active Medications Generic Name Dose Route Start Last Admin Trade Name Freq PRN Reason Stop Dose Admin Acetaminophen 650 mg 01/18/19 13:39 Tylenol 650mg/20.3ml Solution Ud NG Q6 PRN for temp>100.4 deg f Acetylcysteine 2 ml 01/17/19 20:00 01/24/19 08:01 Acetylcysteine 20% INH 2 ml RBID JOANNA Administration Albuterol Sulfate 2.5 mg 01/19/19 20:00 01/24/19 08:02 Albuterol 0.083% Inhal Mana (2.5 Mg/3 Ml) Ud INH 2.5 mg RBID JOANNA Administration Carvedilol 6.25 mg 01/06/19 21:00 01/24/19 09:24 Coreg NG Not Given Q12 JOANNA Cilostazol 50 mg 01/06/19 10:30 01/07/19 10:22 Pletal PO Not Given Q12 JOANNA Dextrose 0 ml 01/21/19 21:26 01/24/19 04:36 Dextrose 50% Inj IV 50 ml STAT PRN Administration Hypoglycemia Protocol Protocol Dextrose 0 gm 01/21/19 21:26 Glutose 15 PO ONCE PRN Hypoglycemia Protocol Protocol Folic Acid 1 mg 01/10/19 09:00 01/24/19 08:25 Folic Acid GT 1 mg DAILY JOANNA Administration Glucagon 0 mg 01/21/19 21:26 Glucagen Diagnostic Kit IM STAT PRN Hypoglycemia Protocol Protocol Hydralazine HCl 25 mg 01/12/19 13:00 01/24/19 08:28 Apresoline PO 25 mg TID JOANNA Administration Meropenem 1 gm/ Sodium 100 mls @ 100 mls/hr 01/18/19 17:15 01/24/19 08:26 Chloride IVPB 100 mls/hr Q8 JOANNA Administration Protocol Dextrose/Sodium Chloride 1,000 mls @ 80 mls/hr 01/24/19 10:30 Dextrose 5%/0.45% Ns 1000 Ml IV 01/25/19 10:29 .[id number] [facility] Insulin Detemir 25 units 01/23/19 09:00 01/24/19 08:28 Levemir SC 25 u Q12 JOANNA Administration Insulin Human Lispro 0 units 01/22/19 01:00 01/24/19 09:20 Humalog SC 1 units Q4 JOANNA Administration Protocol Lactulose 20 gm 01/13/19 06:15 01/24/19 09:20 Enulose GT 20 gm Q4H JOANNA Administration Levothyroxine Sodium 50 mcg 01/09/19 06:30 01/24/19 05:36 Synthroid PO 50 mcg DAILY@0630 JOANNA Administration Pantoprazole Sodium 40 mg 01/07/19 13:15 01/24/19 08:25 Protonix Susp NG 40 mg DAILY JOANNA Administration Rifaximin 550 mg 01/11/19 17:00 01/24/19 08:24 Xifaxan PO 550 mg BID JOANNA Administration Protocol Tamsulosin HCl 0.4 mg 01/22/19 12:15 01/24/19 08:25 Flomax NG 0.4 mg DAILY JOANNA Administration Thiamine HCl 100 mg 01/10/19 09:00 01/24/19 08:24 Vitamin B1 Tab GT 100 mg DAILY JOANNA Administration - Patient Studies Lab Studies: Microbiology Studies 01/18/19 17:39 Blood Culture - Final Blood-Venous NO GROWTH AFTER 5 DAYS Gram Stain - Final TEST NOT PERFORMED 01/18/19 12:20 Blood Culture - Final Blood-Venous NO GROWTH AFTER 5 DAYS Gram Stain - Final TEST NOT PERFORMED Lab Studies 01/24/19 01/24/19 01/24/19 Range/Units 05:17 04:32 04:18 WBC (4.8-10.8) K/uL RBC (4.40-5.90) Mil/uL Hgb (12.0-18.0) g/dL Hct (35.0-51.0) % MCV (80.0-94.0) fl MCH (27.0-31.0) pg MCHC (33.0-37.0) g/dL RDW (11.5-14.5) % Plt Count (130-400) K/uL MPV (7.2-11.7) fl Neut % (Auto) (50.0-75.0) % Lymph % (Auto) (20.0-40.0) % [place] % (Auto) (0.0-10.0) % Eos % (Auto) (0.0-4.0) % Baso % (Auto) (0.0-2.0) % Neut # (Auto) (1.8-7.0) K/uL Lymph # (Auto) (1.0-4.3) K/uL [place] # (Auto) (0.0-0.8) K/uL Eos # (Auto) (0.0-0.7) K/uL Baso # (Auto) (0.0-0.2) K/uL PT (9.8-13.1) Seconds INR APTT (25.6-37.1) Seconds Sodium 149 H (132-148) mmol/l Potassium 4.1 (3.6-5.0) MMOL/L Chloride 122 H (98-107) mmol/L Carbon Dioxide 29 (22-30) mmol/L Anion Gap 2 L (10-20) BUN 41 H (9-20) mg/dl Creatinine 0.7 L (0.8-1.5) mg/dl Est GFR ( Amer) > 60 Est GFR (Non-Af Amer) > 60 POC Glucose (mg/dL) 148 H 52 L (65-110) mg/dL Random Glucose 206 H (75-110) mg/dL Serum Osmolality (272-300) mosm/kg Calcium 9.1 (8.4-10.2) mg/dL Phosphorus 3.1 (2.5-4.5) mg/dl Magnesium 2.5 H (1.6-2.3) MG/DL Total Bilirubin 2.3 H (0.2-1.3) mg/dl AST 130 H D (17-59) U/L ALT 62 (21-72) U/L Alkaline Phosphatase 358 H (38-126) U/L Ammonia (9-33) umol/L Total Protein 6.4 (6.3-8.2) G/DL Albumin 2.1 L (3.5-5.0) g/dL Globulin 4.2 H (2.2-3.9) gm/dL Albumin/Globulin Ratio 0.5 L (1.0-2.1) 01/24/19 01/24/19 01/24/19 Range/Units 04:18 04:18 04:18 WBC 8.6 (4.8-10.8) K/uL RBC 2.97 L (4.40-5.90) Mil/uL Hgb 11.6 L (12.0-18.0) g/dL Hct 34.0 L (35.0-51.0) % MCV 114.4 H (80.0-94.0) fl MCH 39.1 H (27.0-31.0) pg MCHC 34.2 (33.0-37.0) g/dL RDW 16.9 H (11.5-14.5) % Plt Count 131 (130-400) K/uL MPV 11.0 (7.2-11.7) fl Neut % (Auto) 78.4 H (50.0-75.0) % Lymph % (Auto) 9.1 L (20.0-40.0) % [place] % (Auto) 9.3 (0.0-10.0) % Eos % (Auto) 2.7 (0.0-4.0) % Baso % (Auto) 0.5 (0.0-2.0) % Neut # (Auto) 6.7 (1.8-7.0) K/uL Lymph # (Auto) 0.8 L (1.0-4.3) K/uL [place] # (Auto) 0.8 (0.0-0.8) K/uL Eos # (Auto) 0.2 (0.0-0.7) K/uL Baso # (Auto) 0.0 (0.0-0.2) K/uL PT (9.8-13.1) Seconds INR APTT (25.6-37.1) Seconds Sodium (132-148) mmol/l Potassium (3.6-5.0) MMOL/L Chloride (98-107) mmol/L Carbon Dioxide (22-30) mmol/L Anion Gap (10-20) BUN (9-20) mg/dl Creatinine (0.8-1.5) mg/dl Est GFR ( Amer) Est GFR (Non-Af Amer) POC Glucose (mg/dL) (65-110) mg/dL Random Glucose (75-110) mg/dL Serum Osmolality 343 H (272-300) mosm/kg Calcium (8.4-10.2) mg/dL Phosphorus (2.5-4.5) mg/dl Magnesium (1.6-2.3) MG/DL Total Bilirubin (0.2-1.3) mg/dl AST (17-59) U/L ALT (21-72) U/L Alkaline Phosphatase (38-126) U/L Ammonia 47 H (9-33) umol/L Total Protein (6.3-8.2) G/DL Albumin (3.5-5.0) g/dL Globulin (2.2-3.9) gm/dL Albumin/Globulin Ratio (1.0-2.1) 01/24/19 01/23/19 01/23/19 Range/Units 00:55 20:11 16:22 WBC (4.8-10.8) K/uL RBC (4.40-5.90) Mil/uL Hgb (12.0-18.0) g/dL Hct (35.0-51.0) % MCV (80.0-94.0) fl MCH (27.0-31.0) pg MCHC (33.0-37.0) g/dL RDW (11.5-14.5) % Plt Count (130-400) K/uL MPV (7.2-11.7) fl Neut % (Auto) (50.0-75.0) % Lymph % (Auto) (20.0-40.0) % [place] % (Auto) (0.0-10.0) % Eos % (Auto) (0.0-4.0) % Baso % (Auto) (0.0-2.0) % Neut # (Auto) (1.8-7.0) K/uL Lymph # (Auto) (1.0-4.3) K/uL [place] # (Auto) (0.0-0.8) K/uL Eos # (Auto) (0.0-0.7) K/uL Baso # (Auto) (0.0-0.2) K/uL PT (9.8-13.1) Seconds INR APTT (25.6-37.1) Seconds Sodium (132-148) mmol/l Potassium (3.6-5.0) MMOL/L Chloride (98-107) mmol/L Carbon Dioxide (22-30) mmol/L Anion Gap (10-20) BUN (9-20) mg/dl Creatinine (0.8-1.5) mg/dl Est GFR ( Amer) Est GFR (Non-Af Amer) POC Glucose (mg/dL) 78 182 H 187 H (65-110) mg/dL Random Glucose (75-110) mg/dL Serum Osmolality (272-300) mosm/kg Calcium (8.4-10.2) mg/dL Phosphorus (2.5-4.5) mg/dl Magnesium (1.6-2.3) MG/DL Total Bilirubin (0.2-1.3) mg/dl AST (17-59) U/L ALT (21-72) U/L Alkaline Phosphatase (38-126) U/L Ammonia (9-33) umol/L Total Protein (6.3-8.2) G/DL Albumin (3.5-5.0) g/dL Globulin (2.2-3.9) gm/dL Albumin/Globulin Ratio (1.0-2.1) 01/23/19 01/23/19 01/23/19 Range/Units 10:30 10:30 09:19 WBC (4.8-10.8) K/uL RBC (4.40-5.90) Mil/uL Hgb (12.0-18.0) g/dL Hct (35.0-51.0) % MCV (80.0-94.0) fl MCH (27.0-31.0) pg MCHC (33.0-37.0) g/dL RDW (11.5-14.5) % Plt Count (130-400) K/uL MPV (7.2-11.7) fl Neut % (Auto) (50.0-75.0) % Lymph % (Auto) (20.0-40.0) % [place] % (Auto) (0.0-10.0) % Eos % (Auto) (0.0-4.0) % Baso % (Auto) (0.0-2.0) % Neut # (Auto) (1.8-7.0) K/uL Lymph # (Auto) (1.0-4.3) K/uL [place] # (Auto) (0.0-0.8) K/uL Eos # (Auto) (0.0-0.7) K/uL Baso # (Auto) (0.0-0.2) K/uL PT 16.1 H (9.8-13.1) Seconds INR 1.4 APTT 31.5 (25.6-37.1) Seconds Sodium (132-148) mmol/l Potassium (3.6-5.0) MMOL/L Chloride (98-107) mmol/L Carbon Dioxide (22-30) mmol/L Anion Gap (10-20) BUN (9-20) mg/dl Creatinine (0.8-1.5) mg/dl Est GFR ( Amer) Est GFR (Non-Af Amer) POC Glucose (mg/dL) 212 H (65-110) mg/dL Random Glucose (75-110) mg/dL Serum Osmolality (272-300) mosm/kg Calcium (8.4-10.2) mg/dL Phosphorus (2.5-4.5) mg/dl Magnesium (1.6-2.3) MG/DL Total Bilirubin (0.2-1.3) mg/dl AST (17-59) U/L ALT (21-72) U/L Alkaline Phosphatase (38-126) U/L Ammonia 40 H D (9-33) umol/L Total Protein (6.3-8.2) G/DL Albumin (3.5-5.0) g/dL Globulin (2.2-3.9) gm/dL Albumin/Globulin Ratio (1.0-2.1) Laboratory Results - last 24 hr 01/23/19 01/23/19 01/23/19 09:19 10:30 10:30 WBC RBC Hgb Hct MCV MCH MCHC RDW Plt Count MPV Neut % (Auto) Lymph % (Auto) [place] % (Auto) Eos % (Auto) Baso % (Auto) Neut # (Auto) Lymph # (Auto) [place] # (Auto) Eos # (Auto) Baso # (Auto) PT 16.1 H INR 1.4 APTT 31.5 Sodium Potassium Chloride Carbon Dioxide Anion Gap BUN Creatinine Est GFR ( Amer) Est GFR (Non-Af Amer) POC Glucose (mg/dL) 212 H Random Glucose Serum Osmolality Calcium Phosphorus Magnesium Total Bilirubin AST ALT Alkaline Phosphatase Ammonia 40 H D Total Protein Albumin Globulin Albumin/Globulin Ratio 01/23/19 01/23/19 01/24/19 16:22 20:11 00:55 WBC RBC Hgb Hct MCV MCH MCHC RDW Plt Count MPV Neut % (Auto) Lymph % (Auto) [place] % (Auto) Eos % (Auto) Baso % (Auto) Neut # (Auto) Lymph # (Auto) [place] # (Auto) Eos # (Auto) Baso # (Auto) PT INR APTT Sodium Potassium Chloride Carbon Dioxide Anion Gap BUN Creatinine Est GFR ( Amer) Est GFR (Non-Af Amer) POC Glucose (mg/dL) 187 H 182 H 78 Random Glucose Serum Osmolality Calcium Phosphorus Magnesium Total Bilirubin AST ALT Alkaline Phosphatase Ammonia Total Protein Albumin Globulin Albumin/Globulin Ratio 01/24/19 01/24/19 01/24/19 04:18 04:18 04:18 WBC 8.6 RBC 2.97 L Hgb 11.6 L Hct 34.0 L MCV 114.4 H MCH 39.1 H MCHC 34.2 RDW 16.9 H Plt Count 131 MPV 11.0 Neut % (Auto) 78.4 H Lymph % (Auto) 9.1 L [place] % (Auto) 9.3 Eos % (Auto) 2.7 Baso % (Auto) 0.5 Neut # (Auto) 6.7 Lymph # (Auto) 0.8 L [place] # (Auto) 0.8 Eos # (Auto) 0.2 Baso # (Auto) 0.0 PT INR APTT Sodium Potassium Chloride Carbon Dioxide Anion Gap BUN Creatinine Est GFR ( Amer) Est GFR (Non-Af Amer) POC Glucose (mg/dL) Random Glucose Serum Osmolality 343 H Calcium Phosphorus Magnesium Total Bilirubin AST ALT Alkaline Phosphatase Ammonia 47 H Total Protein Albumin Globulin Albumin/Globulin Ratio 01/24/19 01/24/19 01/24/19 04:18 04:32 05:17 WBC RBC Hgb Hct MCV MCH MCHC RDW Plt Count MPV Neut % (Auto) Lymph % (Auto) [place] % (Auto) Eos % (Auto) Baso % (Auto) Neut # (Auto) Lymph # (Auto) [place] # (Auto) Eos # (Auto) Baso # (Auto) PT INR APTT Sodium 149 H Potassium 4.1 Chloride 122 H Carbon Dioxide 29 Anion Gap 2 L BUN 41 H Creatinine 0.7 L Est GFR ( Amer) > 60 Est GFR (Non-Af Amer) > 60 POC Glucose (mg/dL) 52 L 148 H Random Glucose 206 H Serum Osmolality Calcium 9.1 Phosphorus 3.1 Magnesium 2.5 H Total Bilirubin 2.3 H AST 130 H D ALT 62 Alkaline Phosphatase 358 H Ammonia Total Protein 6.4 Albumin 2.1 L Globulin 4.2 H Albumin/Globulin Ratio 0.5 L Fingerstick Blood Sugar Results: 153 Review of Systems - Review of Systems All systems: reviewed and no additional remarkable complaints except (as menti oned in HPI) Assessment/Plan (1) Acute respiratory failure Current Visit: Yes Status: Resolved Priority: High Comment: Patient was orally intubated and mechanically ventilated from 01/06/19 to 01/20/19 due to altered mental status from hepatic encephalopathy and hyperammonemia Patient was successfully extubated on 01/20/19, saturating well on NC 4 L O2 Frequent neuro check Maintain aspiration precaution Mucomyst q12 with albuterol for mucus plug Orgogastric Tube feeding Suplena at 50 cc/hr. Swallow eval c/w physical therapy (2) Hospital-acquired bacterial pneumonia Current Visit: Yes Status: Acute Comment: Sputum culture o n 01/17/19 grew pseudomonas Sputum culture on 01/10/19 showed Pseudomonas and Klebsiella chest CT on 01/15/19 shows posterior bibasilar pneumonic consolidation -ID consult: recs appreciated -c/w Meropenem 1 gm q8 (day 7) -Repeat CXR tomorrow (3) Altered mental status Current Visit: Yes Status: Resolved Priority: High Comment: -Head CT on 01/15/19 is negative for intracranial pathology -Improving -successfully extubed on 01/20/19 (4) Hepatic encephalopathy Current Visit: Yes Status: Resolved Priority: High Comment: Continued improvement of mental status c/w lactulose and rifaximin Frequent neuro check (5) Hypernatremia Current Visit: Yes Status: Acute Comment: -Nephologist Dr. Lorenzo on board -Serum Na 149 today. -c/w free water flush 300 cc q4hr per nephro necs (6) DM type 2 (diabetes mellitus, type 2) Current Visit: No Status: Acute Comment: -not controlled -c/w levemir to 25 units SC Q12 -C/W lispro sliding scale q4 -Monitor blood glucose -Consider endocrine consult if glucose remains uncontrolled. (7) Hyperosmolality Current Visit: Yes Status: Acute Comment: Serum Osmolality 343 Start D5 1/2 NS @80 cc/hr c/w accucheck q4 with sliding scale insulin (8) Thrombocytopenia Current Visit: Yes Status: Acute Comment: improving (9) Physical deconditioning Current Visit: Yes Status: Acute Comment: c/w daily PT/OT <Sinan Santana - Last Filed: 01/24/19 17:39> Assessment/Plan - Assessment and Plan (Free Text) Plan: Attestation: Patient seen and examined at the bedside with Resident Dr. Lizeth Paris; and I agree with his outline of plans and management documented above as discussed on AM rounds reflecting my review of all applicable clinical data, and participation in the care of the patient throughout the day in ICU; today, January 24, 2019.
[2019-01-24] MEDS: Dextrose 5%/0.45% NS 1,000 ML IV SCH ×2 (10:39→23:00)
--- NOTE | 2019-01-24 10:43 | RAD ---
Date of service: 01/24/2019 HISTORY: s/p extubation on 01/20/19, f/u on PNA COMPARISON: No prior. TECHNIQUE: 1 view obtained. FINDINGS: LUNGS: No active pulmonary disease. PLEURA: No significant pleural effusion identified, no pneumothorax apparent. CARDIOVASCULAR: No aortic atherosclerotic calcification present. Normal cardiac size. The ET tube has been removed. The nasogastric tube remains unchanged in position grossly OSSEOUS STRUCTURES: No significant abnormalities. VISUALIZED UPPER ABDOMEN: Normal. OTHER FINDINGS: None. IMPRESSION: No active disease.
[2019-01-24] MEDS ORDERED: Chlorhexidine Gluconate 1 APPL/PKT TP ONE ×2 (13:26→14:09)
[2019-01-24 16:34] LABS: URINE BILIRUBIN NEGATIVE (NEGATIVE); URINE BLOOD NEGATIVE (NEGATIVE); URINE CLARITY SLIGHTY-CLOUDY (Clear); URINE COLOR AMBER (YELLOW); URINE GLUCOSE (UA) 50 mg/dL (NEGATIVE); URINE LEUKOCYTE ESTERASE NEG Leu/uL (Negative); URINE PROTEIN 30 mg/dL (NEGATIVE); URINE UROBILINOGEN 0.2-1.0 mg/dL (0.2-1.0)
--- NOTE | 2019-01-24 20:22 | CP.PCM.PN ---
Subjective - Date & Time of Evaluation Date of Evaluation: 01/23/19 Time of Evaluation: 15:00 - Subjective Subjective: Seen sitting in chair, family at bedside. Objective - Vital Signs/Intake and Output Vital Signs (last 24 hours): Temp Pulse Resp BP Pulse Ox 96.2 F L 84 17 100/58 L 99 01/24/19 16:00 01/24/19 18:00 01/24/19 18:00 01/24/19 18:00 01/24/19 18:00 Intake and Output: 01/24/19 01/25/19 18:59 06:59 Intake Total 2489 Output Total 800 Balance 1689 - Medications Medications: Current Medications Acetaminophen (Tylenol 650mg/20.3ml Solution Ud) 650 mg NG Q6 PRN PRN Reason: for temp>100.4 deg f Acetylcysteine (Acetylcysteine 20%) 2 ml INH RBID JOANNA Last Admin: 01/24/19 19:03 Dose: 2 ml Albuterol Sulfate (Albuterol 0.083% Inhal Mana (2.5 Mg/3 Ml) Ud) 2.5 mg INH RBID JOANNA Last Admin: 01/24/19 19:03 Dose: 2.5 mg Carvedilol (Coreg) 6.25 mg NG Q12 JOANNA Last Admin: 01/24/19 09:24 Dose: Not Given Cilostazol (Pletal) 50 mg PO Q12 [facility] Last Admin: 01/07/19 10:22 Dose: Not Given Dextrose (Dextrose 50% Inj) 0 ml IV STAT PRN; Protocol PRN Reason: Hypoglycemia Protocol Last Admin: 01/24/19 04:36 Dose: 50 ml Dextrose (Glutose 15) 0 gm PO ONCE PRN; Protocol PRN Reason: Hypoglycemia Protocol Folic Acid (Folic Acid) 1 mg GT DAILY [facility] Last Admin: 01/24/19 08:25 Dose: 1 mg Glucagon (Glucagen Diagnostic Kit) 0 mg IM STAT PRN; Protocol PRN Reason: Hypoglycemia Protocol Hydralazine HCl (Apresoline) 25 mg PO TID [facility] Last Admin: 01/24/19 16:18 Dose: Not Given Meropenem 1 gm/ Sodium (Chloride) 100 mls @ 100 mls/hr IVPB Q8 [facility]AN[facility]; Protocol Last Admin: 01/24/19 16:16 Dose: 100 mls/hr Dextrose/Sodium Chloride (Dextrose 5%/0.45% Ns 1000 Ml) 1,000 mls @ 80 mls/hr IV .[id number] [facility] Stop: 01/25/19 10:29 Last Admin: 01/24/19 10:39 Dose: 80 mls/hr Insulin Detemir (Levemir) 25 units SC Q12 [facility] Last Admin: 01/24/19 08:28 Dose: 25 u Insulin Human Lispro (Humalog) 0 units SC Q4 [facility]; Protocol Last Admin: 01/24/19 16:22 Dose: 1 units Lactulose (Enulose) 20 gm GT Q4H [facility] Last Admin: 01/24/19 17:41 Dose: 20 gm Levothyroxine Sodium (Synthroid) 50 mcg PO DAILY@0630 [facility] Last Admin: 01/24/19 05:36 Dose: 50 mcg Pantoprazole Sodium (Protonix Susp) 40 mg NG DAILY [facility] Last Admin: 01/24/19 08:25 Dose: 40 mg Rifaximin (Xifaxan) 550 mg PO BID [facility]; Protocol Last Admin: 01/24/19 16:17 Dose: 550 mg Tamsulosin HCl (Flomax) 0.4 mg NG DAILY [facility] Last Admin: 01/24/19 08:25 Dose: 0.4 mg Thiamine HCl (Vitamin B1 Tab) 100 mg GT DAILY [facility] Last Admin: 01/24/19 08:24 Dose: 100 mg - Labs Labs: 01/24/19 04:18 01/24/19 04:18 PT 16.1 Seconds (9.8-13.1) H 01/23/19 10:30 INR 1.4 01/23/19 10:30 APTT 31.5 Seconds (25.6-37.1) 01/23/19 10:30 - Head Exam Head Exam: ATRAUMATIC - Eye Exam Eye Exam: Normal appearance - ENT Exam ENT Exam: Mucous Membranes Dry - Respiratory Exam Respiratory Exam: Decreased Breath Sounds - Cardiovascular Exam Cardiovascular Exam: +S1, +S2 - GI/Abdominal Exam GI & Abdominal Exam: Normal Bowel Sounds Assessment and Plan (1) Thrombocytopenia Assessment & Plan: liver cirrhosis and splenic sequestration mild Status: Acute (2) Coagulopathy Assessment & Plan: liver disease nutritional component vit k and FFP PRN Status: Acute (3) Liver mass Assessment & Plan: HCC outpatient f/u 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
--- NOTE | 2019-01-24 20:23 | CP.PCM.PN ---
Subjective - Date & Time of Evaluation Date of Evaluation: 01/24/19 Time of Evaluation: 12:00 - Subjective Subjective: Seen sitting in chair, pulled NGT out. Objective - Vital Signs/Intake and Output Vital Signs (last 24 hours): Temp Pulse Resp BP Pulse Ox 96.2 F L 84 17 100/58 L 99 01/24/19 16:00 01/24/19 18:00 01/24/19 18:00 01/24/19 18:00 01/24/19 18:00 Intake and Output: 01/24/19 01/25/19 18:59 06:59 Intake Total 2489 Output Total 800 Balance 1689 - Medications Medications: Current Medications Acetaminophen (Tylenol 650mg/20.3ml Solution Ud) 650 mg NG Q6 PRN PRN Reason: for temp>100.4 deg f Acetylcysteine (Acetylcysteine 20%) 2 ml INH RBID JOANNA Last Admin: 01/24/19 19:03 Dose: 2 ml Albuterol Sulfate (Albuterol 0.083% Inhal Mana (2.5 Mg/3 Ml) Ud) 2.5 mg INH RBID JOANNA Last Admin: 01/24/19 19:03 Dose: 2.5 mg Carvedilol (Coreg) 6.25 mg NG Q12 JOANNA Last Admin: 01/24/19 09:24 Dose: Not Given Cilostazol (Pletal) 50 mg PO Q12 [facility] Last Admin: 01/07/19 10:22 Dose: Not Given Dextrose (Dextrose 50% Inj) 0 ml IV STAT PRN; Protocol PRN Reason: Hypoglycemia Protocol Last Admin: 01/24/19 04:36 Dose: 50 ml Dextrose (Glutose 15) 0 gm PO ONCE PRN; Protocol PRN Reason: Hypoglycemia Protocol Folic Acid (Folic Acid) 1 mg GT DAILY [facility] Last Admin: 01/24/19 08:25 Dose: 1 mg Glucagon (Glucagen Diagnostic Kit) 0 mg IM STAT PRN; Protocol PRN Reason: Hypoglycemia Protocol Hydralazine HCl (Apresoline) 25 mg PO TID [facility] Last Admin: 01/24/19 16:18 Dose: Not Given Meropenem 1 gm/ Sodium (Chloride) 100 mls @ 100 mls/hr IVPB Q8 JOANNA; Protocol Last Admin: 01/24/19 16:16 Dose: 100 mls/hr Dextrose/Sodium Chloride (Dextrose 5%/0.45% Ns 1000 Ml) 1,000 mls @ 80 mls/hr IV .[id number] [facility] Stop: 01/25/19 10:29 Last Admin: 01/24/19 10:39 Dose: 80 mls/hr Insulin Detemir (Levemir) 25 units SC Q12 [facility] Last Admin: 01/24/19 08:28 Dose: 25 u Insulin Human Lispro (Humalog) 0 units SC Q4 [facility]; Protocol Last Admin: 01/24/19 16:22 Dose: 1 units Lactulose (Enulose) 20 gm GT Q4H [facility] Last Admin: 01/24/19 17:41 Dose: 20 gm Levothyroxine Sodium (Synthroid) 50 mcg PO DAILY@0630 [facility] Last Admin: 01/24/19 05:36 Dose: 50 mcg Pantoprazole Sodium (Protonix Susp) 40 mg NG DAILY [facility] Last Admin: 01/24/19 08:25 Dose: 40 mg Rifaximin (Xifaxan) 550 mg PO BID [facility]; Protocol Last Admin: 01/24/19 16:17 Dose: 550 mg Tamsulosin HCl (Flomax) 0.4 mg NG DAILY [facility] Last Admin: 01/24/19 08:25 Dose: 0.4 mg Thiamine HCl (Vitamin B1 Tab) 100 mg GT DAILY [facility] Last Admin: 01/24/19 08:24 Dose: 100 mg - Labs Labs: 01/24/19 04:18 01/24/19 04:18 PT 16.1 Seconds (9.8-13.1) H 01/23/19 10:30 INR 1.4 01/23/19 10:30 APTT 31.5 Seconds (25.6-37.1) 01/23/19 10:30 - Head Exam Head Exam: ATRAUMATIC - Eye Exam Eye Exam: Normal appearance - ENT Exam ENT Exam: Mucous Membranes Dry - Respiratory Exam Respiratory Exam: Decreased Breath Sounds - Cardiovascular Exam Cardiovascular Exam: +S1, +S2 - GI/Abdominal Exam GI & Abdominal Exam: Normal Bowel Sounds Assessment and Plan (1) Thrombocytopenia Assessment & Plan: liver cirrhosis and splenic sequestration mild Status: Acute (2) Coagulopathy Assessment & Plan: liver disease nutritional component vit k and FFP PRN Status: Acute (3) Liver mass Assessment & Plan: HCC outpatient f/u with primary business continuity consultant Status: Acute
[2019-01-24] MEDS ORDERED: Sodium Chloride 0.9% 250 ML IV SCH (21:00)
[2019-01-25] MEDS: Meropenem 1 GM in Sodium Chloride 0.9% 100 ML IVPB SCH ×3 (01:25→17:33)
[2019-01-25] MEDS ORDERED: Strong Iodine Topical Sol. 5%-10% TOP ONE (05:41)
[2019-01-25] MEDS ORDERED: Povidone Iodine Topical 10% Sol TOP ONE (05:45)
[2019-01-25 05:49] LABS: BASO % 0.7 % (0.0-2.0); EOS # 0.2 K/uL (0.0-0.7); EOS % 3.5 % (0.0-4.0); HEMOGLOBIN 9.9 g/dL (12.0-18.0); LYMPH # 0.8 K/uL (1.0-4.3); LYMPH % 11.7 % (20.0-40.0); MEAN CELL VOLUME 114.3 fl (80.0-94.0); MEAN CORPUSCULAR HEMOGLOBIN 38.3 pg (27.0-31.0); MEAN CORPUSCULAR HGB CONC 33.5 g/dL (33.0-37.0); MONO # 0.7 K/uL (0.0-0.8); MONO % 9.6 % (0.0-10.0); NEUT # 5.1 K/uL (1.8-7.0); NEUT % 74.5 % (50.0-75.0); NRBC % 0.1 % (0.0-0.0); RBC 2.58 Mil/uL (4.40-5.90); RED CELL DISTRIBUTION WIDTH 16.8 % (11.5-14.5); WHITE BLOOD COUNT 6.8 K/uL (4.8-10.8)
[2019-01-25 06:58] LABS: ALB/GLOB RATIO 0.5 (1.0-2.1); ALBUMIN 1.8 g/dL (3.5-5.0); ALT/SGPT 62 U/L (21-72); AST/SGOT 95 U/L (17-59); BLOOD UREA NITROGEN 36 mg/dl (9-20); CALCIUM 8.6 mg/dL (8.4-10.2); GFR NON-AFRICAN AMERICAN > 60
[2019-01-25] MEDS: Dextrose 5%/0.45% NS 1,000 ML IV SCH (08:35)
[2019-01-25] MEDS: Insulin Detemir 100 Units/ml Inj SC SCH (08:37)
[2019-01-25] MEDS: Insulin Lispro (humaLOG) 100 Units/ml Inj SC SCH ×5 (08:37→21:35)
[2019-01-25] MEDS: Albuterol 0.083% Inhal Sol (2.5 mg/3 mL) UD INH SCH (08:37)
[2019-01-25] MEDS: Acetylcysteine 20% Inhal Soln (4ml) INH SCH (08:37)
[2019-01-25] MEDS: Pantoprazole 40 mg Susp UD NG SCH (08:39)
--- NOTE | 2019-01-25 11:43 | CP.CCUPN ---
<Sultan Raina - Last Filed: 01/25/19 12:42> CCU Subjective - Physician Review Subjective (Free Text): 01/25/19 11:28 68 yo Male with PMHx of DMII, Gastritis, HTN, Hypercholesterolemia, Chronic Kidney Disease, liver cirrhosis, hepatic encephalopathy and liver malignancy was brought in to the emergency room on 01/06/19 by the family for evaluation of altered mental status, confusion and abdominal pain. Patient was initially admitted to Med/surg unit, however was transferred to the intensive care unit later in the evening for his worsening of his mental status and intubated. Patient was intubated from 01/06/19 to 01/20/19. Patient was extubated on 01/20/19, saturating well at 98-99% with 3 L NC oxygen. Patient seen and examined in ICU this AM. Overnight events and nurses notes reviewed. Patient is awake and alert, NAD Remains afebrile with stable vitals. Denies any chest pain, abdominal pain, nausea, vomiting, fever or chills. Failed swallow test today PICC line inserted this AM. Participating daily PT/OT Serum sodium improved to 147 Serum osmolality improved to 328 I/O 2750/2700 over last 24 hours. CCU Objective - Vital Signs / Intake & Output Vital Signs (Last 4 hours): Vital Signs Temp Pulse Resp BP Pulse Ox 01/25/19 08:34 77 121/61 01/25/19 08:33 77 121/61 01/25/19 08:00 98.1 F 77 18 126/63 99 Intake and Output (Last 8hrs): Intake & Output 01/24/19 01/25/19 01/25/19 22:59 06:59 14:59 Intake Total 1609 1040 Output Total 800 300 Balance 809 740 Intake: IV 710 640 Intake, Piggyback 100 Tube Feeding 299 Free Water Flush 600 300 Output: Urine 300 300 Straight 300 300 Stool 500 - Physical Exam Head: Positive for: Atraumatic, Normocephalic Pupils: Positive for: PERRL Extroacular Muscles: Positive for: EOMI Conjunctiva: Positive for: Icteric Ears: Positive for: Normal Mouth: Positive for: Moist Mucous Membranes Nose (External): Positive for: Atraumatic Respiratory/Chest: Positive for: Clear to Auscultation, Good Air Exchange. Negative for: Respiratory Distress, Accessory Muscle Use, Wheezes, Rales, Rhonchi Cardiovascular: Positive for: Regular Rate and Rhythm, Normal S1, S2 Abdomen: Positive for: Normal Bowel Sounds. Negative for: Tenderness, Distention, Peritoneal Signs Upper Extremity: Positive for: Swelling (Left >Right and eccymosis on medial aspects of right forearm.) Lower Extremity: Positive for: Normal Inspection. Negative for: Tenderness Skin: Positive for: Warm, Normal Color Psychiatric: Positive for: Alert - Medications Active Medications: Active Medications Generic Name Dose Route Start Last Admin Trade Name Freq PRN Reason Stop Dose Admin Acetaminophen 650 mg 01/18/19 13:39 Tylenol 650mg/20.3ml Solution Ud NG Q6 PRN for temp>100.4 deg f Acetylcysteine 2 ml 01/17/19 20:00 01/25/19 08:37 Acetylcysteine 20% INH 2 ml RBID JOANNA Administration Albuterol Sulfate 2.5 mg 01/19/19 20:00 01/25/19 08:37 Albuterol 0.083% Inhal Mana (2.5 Mg/3 Ml) Ud INH 2.5 mg RBID JOANNA Administration Carvedilol 6.25 mg 01/06/19 21:00 01/25/19 08:34 Coreg NG 6.25 mg Q12 JOANNA Administration Cilostazol 50 mg 01/06/19 10:30 01/07/19 10:22 Pletal PO Not Given Q12 JOANNA Dextrose 0 ml 01/21/19 21:26 01/24/19 04:36 Dextrose 50% Inj IV 50 ml STAT PRN Administration Hypoglycemia Protocol Protocol Dextrose 0 gm 01/21/19 21:26 Glutose 15 PO ONCE PRN Hypoglycemia Protocol Protocol Folic Acid 1 mg 01/10/19 09:00 01/25/19 08:36 Folic Acid GT 1 mg DAILY JOANNA Administration Glucagon 0 mg 01/21/19 21:26 Glucagen Diagnostic Kit IM STAT PRN Hypoglycemia Protocol Protocol Hydralazine HCl 25 mg 01/12/19 13:00 01/25/19 08:33 Apresoline PO 25 mg TID JOANNA Administration Meropenem 1 gm/ Sodium 100 mls @ 100 mls/hr 01/18/19 17:15 01/25/19 08:38 Chloride IVPB 100 mls/hr Q8 JOANNA Administration Protocol Insulin Detemir 25 units 01/23/19 09:00 01/25/19 08:37 Levemir SC Not Given Q12 JOANNA Insulin Human Lispro 0 units 01/22/19 01:00 01/25/19 08:37 Humalog SC Not Given Q4 [facility] Protocol Lactulose 20 gm 01/13/19 06:15 01/25/19 10:28 Enulose GT 20 gm Q4H JOANNA Administration Levothyroxine Sodium 50 mcg 01/09/19 06:30 01/24/19 05:36 Synthroid PO 50 mcg DAILY@0630 JOANNA Administration Pantoprazole Sodium 40 mg 01/07/19 13:15 01/25/19 08:39 Protonix Susp NG 40 mg DAILY JOANNA Administration Rifaximin 550 mg 01/11/19 17:00 01/25/19 08:40 Xifaxan PO 550 mg BID JOANNA Administration Protocol Tamsulosin HCl 0.4 mg 01/22/19 12:15 01/25/19 08:36 Flomax NG 0.4 mg DAILY JOANNA Administration Thiamine HCl 100 mg 01/10/19 09:00 01/25/19 08:39 Vitamin B1 Tab GT 100 mg DAILY JOANNA Administration - Patient Studies Lab Studies: Lab Studies 01/25/19 01/25/19 01/25/19 Range/Units 08:15 07:04 05:25 WBC (4.8-10.8) K/uL RBC (4.40-5.90) Mil/uL Hgb (12.0-18.0) g/dL Hct (35.0-51.0) % MCV (80.0-94.0) fl MCH (27.0-31.0) pg MCHC (33.0-37.0) g/dL RDW (11.5-14.5) % Plt Count (130-400) K/uL MPV (7.2-11.7) fl Neut % (Auto) (50.0-75.0) % Lymph % (Auto) (20.0-40.0) % Victoria % (Auto) (0.0-10.0) % Eos % (Auto) (0.0-4.0) % Baso % (Auto) (0.0-2.0) % Neut # (Auto) (1.8-7.0) K/uL Lymph # (Auto) (1.0-4.3) K/uL Victoria # (Auto) (0.0-0.8) K/uL Eos # (Auto) (0.0-0.7) K/uL Baso # (Auto) (0.0-0.2) K/uL Sodium (132-148) mmol/l Potassium (3.6-5.0) MMOL/L Chloride (98-107) mmol/L Carbon Dioxide (22-30) mmol/L Anion Gap (10-20) BUN (9-20) mg/dl Creatinine (0.8-1.5) mg/dl Est GFR ( Amer) Est GFR (Non-Af Amer) POC Glucose (mg/dL) 75 98 (65-110) mg/dL Random Glucose (75-110) mg/dL Serum Osmolality 328 H (272-300) mosm/kg Calcium (8.4-10.2) mg/dL Phosphorus (2.5-4.5) mg/dl Magnesium (1.6-2.3) MG/DL Total Bilirubin (0.2-1.3) mg/dl GGT (8-78) U/L AST (17-59) U/L ALT (21-72) U/L Alkaline Phosphatase (38-126) U/L Ammonia (9-33) umol/L Total Protein (6.3-8.2) G/DL Albumin (3.5-5.0) g/dL Globulin (2.2-3.9) gm/dL Albumin/Globulin Ratio (1.0-2.1) Urine Color (YELLOW) Urine Clarity (Clear) Urine pH (5.0-8.0) Ur Specific [place] (1.003-1.030) Urine Protein (NEGATIVE) mg/dL Urine Glucose (UA) (NEGATIVE) mg/dL Urine Ketones (NEGATIVE) mg/dL Urine Blood (NEGATIVE) Urine Nitrate (NEGATIVE) Urine Bilirubin (NEGATIVE) Urine Urobilinogen (0.2-1.0) mg/dL Ur Leukocyte Esterase (Negative) Kim/uL Urine RBC (Auto) (0-3) /hpf Urine Microscopic WBC (0-5) /hpf Hyaline Casts (0-2) /hpf 01/25/19 01/25/19 01/25/19 Range/Units 05:25 05:25 05:25 WBC 6.8 (4.8-10.8) K/uL RBC 2.58 L (4.40-5.90) Mil/uL Hgb 9.9 L (12.0-18.0) g/dL Hct 29.5 L (35.0-51.0) % MCV 114.3 H (80.0-94.0) fl MCH 38.3 H (27.0-31.0) pg MCHC 33.5 (33.0-37.0) g/dL RDW 16.8 H (11.5-14.5) % Plt Count 111 L D (130-400) K/uL MPV 11.0 (7.2-11.7) fl Neut % (Auto) 74.5 (50.0-75.0) % Lymph % (Auto) 11.7 L (20.0-40.0) % Victoria % (Auto) 9.6 (0.0-10.0) % Eos % (Auto) 3.5 (0.0-4.0) % Baso % (Auto) 0.7 (0.0-2.0) % Neut # (Auto) 5.1 (1.8-7.0) K/uL Lymph # (Auto) 0.8 L (1.0-4.3) K/uL Victoria # (Auto) 0.7 (0.0-0.8) K/uL Eos # (Auto) 0.2 (0.0-0.7) K/uL Baso # (Auto) 0.0 (0.0-0.2) K/uL Sodium 147 (132-148) mmol/l Potassium 3.6 (3.6-5.0) MMOL/L Chloride 122 H (98-107) mmol/L Carbon Dioxide 26 (22-30) mmol/L Anion Gap 3 L (10-20) BUN 36 H (9-20) mg/dl Creatinine 0.8 (0.8-1.5) mg/dl Est GFR ( Amer) > 60 Est GFR (Non-Af Amer) > 60 POC Glucose (mg/dL) (65-110) mg/dL Random Glucose 104 (75-110) mg/dL Serum Osmolality (272-300) mosm/kg Calcium 8.6 (8.4-10.2) mg/dL Phosphorus 2.9 (2.5-4.5) mg/dl Magnesium 2.3 (1.6-2.3) MG/DL Total Bilirubin 1.7 H (0.2-1.3) mg/dl GGT (8-78) U/L AST 95 H D (17-59) U/L ALT 62 (21-72) U/L Alkaline Phosphatase 292 H (38-126) U/L Ammonia 32 D (9-33) umol/L Total Protein 5.6 L (6.3-8.2) G/DL Albumin 1.8 L (3.5-5.0) g/dL Globulin 3.8 (2.2-3.9) gm/dL Albumin/Globulin Ratio 0.5 L (1.0-2.1) Urine Color (YELLOW) Urine Clarity (Clear) Urine pH (5.0-8.0) Ur Specific [place] (1.003-1.030) Urine Protein (NEGATIVE) mg/dL Urine Glucose (UA) (NEGATIVE) mg/dL Urine Ketones (NEGATIVE) mg/dL Urine Blood (NEGATIVE) Urine Nitrate (NEGATIVE) Urine Bilirubin (NEGATIVE) Urine Urobilinogen (0.2-1.0) mg/dL Ur Leukocyte Esterase (Negative) Kim/uL Urine RBC (Auto) (0-3) /hpf Urine Microscopic WBC (0-5) /hpf Hyaline Casts (0-2) /hpf 01/25/19 01/24/19 01/24/19 Range/Units 00:38 21:09 16:21 WBC (4.8-10.8) K/uL RBC (4.40-5.90) Mil/uL Hgb (12.0-18.0) g/dL Hct (35.0-51.0) % MCV (80.0-94.0) fl MCH (27.0-31.0) pg MCHC (33.0-37.0) g/dL RDW (11.5-14.5) % Plt Count (130-400) K/uL MPV (7.2-11.7) fl Neut % (Auto) (50.0-75.0) % Lymph % (Auto) (20.0-40.0) % Victoria % (Auto) (0.0-10.0) % Eos % (Auto) (0.0-4.0) % Baso % (Auto) (0.0-2.0) % Neut # (Auto) (1.8-7.0) K/uL Lymph # (Auto) (1.0-4.3) K/uL Victoria # (Auto) (0.0-0.8) K/uL Eos # (Auto) (0.0-0.7) K/uL Baso # (Auto) (0.0-0.2) K/uL Sodium (132-148) mmol/l Potassium (3.6-5.0) MMOL/L Chloride (98-107) mmol/L Carbon Dioxide (22-30) mmol/L Anion Gap (10-20) BUN (9-20) mg/dl Creatinine (0.8-1.5) mg/dl Est GFR ( Amer) Est GFR (Non-Af Amer) POC Glucose (mg/dL) 122 H 106 152 H (65-110) mg/dL Random Glucose (75-110) mg/dL Serum Osmolality (272-300) mosm/kg Calcium (8.4-10.2) mg/dL Phosphorus (2.5-4.5) mg/dl Magnesium (1.6-2.3) MG/DL Total Bilirubin (0.2-1.3) mg/dl GGT (8-78) U/L AST (17-59) U/L ALT (21-72) U/L Alkaline Phosphatase (38-126) U/L Ammonia (9-33) umol/L Total Protein (6.3-8.2) G/DL Albumin (3.5-5.0) g/dL Globulin (2.2-3.9) gm/dL Albumin/Globulin Ratio (1.0-2.1) Urine Color (YELLOW) Urine Clarity (Clear) Urine pH (5.0-8.0) Ur Specific [place] (1.003-1.030) Urine Protein (NEGATIVE) mg/dL Urine Glucose (UA) (NEGATIVE) mg/dL Urine Ketones (NEGATIVE) mg/dL Urine Blood (NEGATIVE) Urine Nitrate (NEGATIVE) Urine Bilirubin (NEGATIVE) Urine Urobilinogen (0.2-1.0) mg/dL Ur Leukocyte Esterase (Negative) Kim/uL Urine RBC (Auto) (0-3) /hpf Urine Microscopic WBC (0-5) /hpf Hyaline Casts (0-2) /hpf 01/24/19 01/24/19 01/24/19 Range/Units 16:17 13:21 09:09 WBC (4.8-10.8) K/uL RBC (4.40-5.90) Mil/uL Hgb (12.0-18.0) g/dL Hct (35.0-51.0) % MCV (80.0-94.0) fl MCH (27.0-31.0) pg MCHC (33.0-37.0) g/dL RDW (11.5-14.5) % Plt Count (130-400) K/uL MPV (7.2-11.7) fl Neut % (Auto) (50.0-75.0) % Lymph % (Auto) (20.0-40.0) % Victoria % (Auto) (0.0-10.0) % Eos % (Auto) (0.0-4.0) % Baso % (Auto) (0.0-2.0) % Neut # (Auto) (1.8-7.0) K/uL Lymph # (Auto) (1.0-4.3) K/uL Victoria # (Auto) (0.0-0.8) K/uL Eos # (Auto) (0.0-0.7) K/uL Baso # (Auto) (0.0-0.2) K/uL Sodium (132-148) mmol/l Potassium (3.6-5.0) MMOL/L Chloride (98-107) mmol/L Carbon Dioxide (22-30) mmol/L Anion Gap (10-20) BUN (9-20) mg/dl Creatinine (0.8-1.5) mg/dl Est GFR ( Amer) Est GFR (Non-Af Amer) POC Glucose (mg/dL) 179 H 153 H (65-110) mg/dL Random Glucose (75-110) mg/dL Serum Osmolality (272-300) mosm/kg Calcium (8.4-10.2) mg/dL Phosphorus (2.5-4.5) mg/dl Magnesium (1.6-2.3) MG/DL Total Bilirubin (0.2-1.3) mg/dl GGT (8-78) U/L AST (17-59) U/L ALT (21-72) U/L Alkaline Phosphatase (38-126) U/L Ammonia (9-33) umol/L Total Protein (6.3-8.2) G/DL Albumin (3.5-5.0) g/dL Globulin (2.2-3.9) gm/dL Albumin/Globulin Ratio (1.0-2.1) Urine Color Yana (YELLOW) Urine Clarity Slighty-cloudy (Clear) Urine pH 5.0 (5.0-8.0) Ur Specific [place] 1.033 H (1.003-1.030) Urine Protein 30 (NEGATIVE) mg/dL Urine Glucose (UA) 50 (NEGATIVE) mg/dL Urine Ketones Negative (NEGATIVE) mg/dL Urine Blood Negative (NEGATIVE) Urine Nitrate Negative (NEGATIVE) Urine Bilirubin Negative (NEGATIVE) Urine Urobilinogen 0.2-1.0 (0.2-1.0) mg/dL Ur Leukocyte Esterase Neg (Negative) Kim/uL Urine RBC (Auto) 3 (0-3) /hpf Urine Microscopic WBC 2 (0-5) /hpf Hyaline Casts 3-5 H (0-2) /hpf 01/23/19 Range/Units 10:30 WBC (4.8-10.8) K/uL RBC (4.40-5.90) Mil/uL Hgb (12.0-18.0) g/dL Hct (35.0-51.0) % MCV (80.0-94.0) fl MCH (27.0-31.0) pg MCHC (33.0-37.0) g/dL RDW (11.5-14.5) % Plt Count (130-400) K/uL MPV (7.2-11.7) fl Neut % (Auto) (50.0-75.0) % Lymph % (Auto) (20.0-40.0) % Victoria % (Auto) (0.0-10.0) % Eos % (Auto) (0.0-4.0) % Baso % (Auto) (0.0-2.0) % Neut # (Auto) (1.8-7.0) K/uL Lymph # (Auto) (1.0-4.3) K/uL Victoria # (Auto) (0.0-0.8) K/uL Eos # (Auto) (0.0-0.7) K/uL Baso # (Auto) (0.0-0.2) K/uL Sodium (132-148) mmol/l Potassium (3.6-5.0) MMOL/L Chloride (98-107) mmol/L Carbon Dioxide (22-30) mmol/L Anion Gap (10-20) BUN (9-20) mg/dl Creatinine (0.8-1.5) mg/dl Est GFR ( Amer) Est GFR (Non-Af Amer) POC Glucose (mg/dL) (65-110) mg/dL Random Glucose (75-110) mg/dL Serum Osmolality (272-300) mosm/kg Calcium (8.4-10.2) mg/dL Phosphorus (2.5-4.5) mg/dl Magnesium (1.6-2.3) MG/DL Total Bilirubin (0.2-1.3) mg/dl GGT 303 H (8-78) U/L AST (17-59) U/L ALT (21-72) U/L Alkaline Phosphatase (38-126) U/L Ammonia (9-33) umol/L Total Protein (6.3-8.2) G/DL Albumin (3.5-5.0) g/dL Globulin (2.2-3.9) gm/dL Albumin/Globulin Ratio (1.0-2.1) Urine Color (YELLOW) Urine Clarity (Clear) Urine pH (5.0-8.0) Ur Specific [place] (1.003-1.030) Urine Protein (NEGATIVE) mg/dL Urine Glucose (UA) (NEGATIVE) mg/dL Urine Ketones (NEGATIVE) mg/dL Urine Blood (NEGATIVE) Urine Nitrate (NEGATIVE) Urine Bilirubin (NEGATIVE) Urine Urobilinogen (0.2-1.0) mg/dL Ur Leukocyte Esterase (Negative) Kim/uL Urine RBC (Auto) (0-3) /hpf Urine Microscopic WBC (0-5) /hpf Hyaline Casts (0-2) /hpf Laboratory Results - last 24 hr 01/23/19 01/24/19 01/24/19 10:30 09:09 13:21 WBC RBC Hgb Hct MCV MCH MCHC RDW Plt Count MPV Neut % (Auto) Lymph % (Auto) Victoria % (Auto) Eos % (Auto) Baso % (Auto) Neut # (Auto) Lymph # (Auto) Victoria # (Auto) Eos # (Auto) Baso # (Auto) Sodium Potassium Chloride Carbon Dioxide Anion Gap BUN Creatinine Est GFR ( Amer) Est GFR (Non-Af Amer) POC Glucose (mg/dL) 153 H 179 H Random Glucose Serum Osmolality Calcium Phosphorus Magnesium Total Bilirubin GGT 303 H AST ALT Alkaline Phosphatase Ammonia Total Protein Albumin Globulin Albumin/Globulin Ratio Urine Color Urine Clarity Urine pH Ur Specific [place] Urine Protein Urine Glucose (UA) Urine Ketones Urine Blood Urine Nitrate Urine Bilirubin Urine Urobilinogen Ur Leukocyte Esterase Urine RBC (Auto) Urine Microscopic WBC Hyaline Casts 01/24/19 01/24/19 01/24/19 16:17 16:21 21:09 WBC RBC Hgb Hct MCV MCH MCHC RDW Plt Count MPV Neut % (Auto) Lymph % (Auto) Victoria % (Auto) Eos % (Auto) Baso % (Auto) Neut # (Auto) Lymph # (Auto) Victoria # (Auto) Eos # (Auto) Baso # (Auto) Sodium Potassium Chloride Carbon Dioxide Anion Gap BUN Creatinine Est GFR ( Amer) Est GFR (Non-Af Amer) POC Glucose (mg/dL) 152 H 106 Random Glucose Serum Osmolality Calcium Phosphorus Magnesium Total Bilirubin GGT AST ALT Alkaline Phosphatase Ammonia Total Protein Albumin Globulin Albumin/Globulin Ratio Urine Color Yana Urine Clarity Slighty-cloudy Urine pH 5.0 Ur Specific [place] 1.033 H Urine Protein 30 Urine Glucose (UA) 50 Urine Ketones Negative Urine Blood Negative Urine Nitrate Negative Urine Bilirubin Negative Urine Urobilinogen 0.2-1.0 Ur Leukocyte Esterase Neg Urine RBC (Auto) 3 Urine Microscopic WBC 2 Hyaline Casts 3-5 H 01/25/19 01/25/19 01/25/19 00:38 05:25 05:25 WBC 6.8 RBC 2.58 L Hgb 9.9 L Hct 29.5 L MCV 114.3 H MCH 38.3 H MCHC 33.5 RDW 16.8 H Plt Count 111 L D MPV 11.0 Neut % (Auto) 74.5 Lymph % (Auto) 11.7 L Victoria % (Auto) 9.6 Eos % (Auto) 3.5 Baso % (Auto) 0.7 Neut # (Auto) 5.1 Lymph # (Auto) 0.8 L Victoria # (Auto) 0.7 Eos # (Auto) 0.2 Baso # (Auto) 0.0 Sodium 147 Potassium 3.6 Chloride 122 H Carbon Dioxide 26 Anion Gap 3 L BUN 36 H Creatinine 0.8 Est GFR ( Amer) > 60 Est GFR (Non-Af Amer) > 60 POC Glucose (mg/dL) 122 H Random Glucose 104 Serum Osmolality Calcium 8.6 Phosphorus 2.9 Magnesium 2.3 Total Bilirubin 1.7 H GGT AST 95 H D ALT 62 Alkaline Phosphatase 292 H Ammonia Total Protein 5.6 L Albumin 1.8 L Globulin 3.8 Albumin/Globulin Ratio 0.5 L Urine Color Urine Clarity Urine pH Ur Specific [place] Urine Protein Urine Glucose (UA) Urine Ketones Urine Blood Urine Nitrate Urine Bilirubin Urine Urobilinogen Ur Leukocyte Esterase Urine RBC (Auto) Urine Microscopic WBC Hyaline Casts 01/25/19 01/25/19 01/25/19 05:25 05:25 07:04 WBC RBC Hgb Hct MCV MCH MCHC RDW Plt Count MPV Neut % (Auto) Lymph % (Auto) Victoria % (Auto) Eos % (Auto) Baso % (Auto) Neut # (Auto) Lymph # (Auto) Victoria # (Auto) Eos # (Auto) Baso # (Auto) Sodium Potassium Chloride Carbon Dioxide Anion Gap BUN Creatinine Est GFR ( Amer) Est GFR (Non-Af Amer) POC Glucose (mg/dL) 98 Random Glucose Serum Osmolality 328 H Calcium Phosphorus Magnesium Total Bilirubin GGT AST ALT Alkaline Phosphatase Ammonia 32 D Total Protein Albumin Globulin Albumin/Globulin Ratio Urine Color Urine Clarity Urine pH Ur Specific [place] Urine Protein Urine Glucose (UA) Urine Ketones Urine Blood Urine Nitrate Urine Bilirubin Urine Urobilinogen Ur Leukocyte Esterase Urine RBC (Auto) Urine Microscopic WBC Hyaline Casts 01/25/19 08:15 WBC RBC Hgb Hct MCV MCH MCHC RDW Plt Count MPV Neut % (Auto) Lymph % (Auto) Victoria % (Auto) Eos % (Auto) Baso % (Auto) Neut # (Auto) Lymph # (Auto) Victoria # (Auto) Eos # (Auto) Baso # (Auto) Sodium Potassium Chloride Carbon Dioxide Anion Gap BUN Creatinine Est GFR ( Amer) Est GFR (Non-Af Amer) POC Glucose (mg/dL) 75 Random Glucose Serum Osmolality Calcium Phosphorus Magnesium Total Bilirubin GGT AST ALT Alkaline Phosphatase Ammonia Total Protein Albumin Globulin Albumin/Globulin Ratio Urine Color Urine Clarity Urine pH Ur Specific [place] Urine Protein Urine Glucose (UA) Urine Ketones Urine Blood Urine Nitrate Urine Bilirubin Urine Urobilinogen Ur Leukocyte Esterase Urine RBC (Auto) Urine Microscopic WBC Hyaline Casts Fingerstick Blood Sugar Results: 75 Assessment/Plan (1) Acute respiratory failure Current Visit: Yes Status: Resolved Priority: High Comment: Patient was orally intubated and mechanically ventilated from 01/06/19 to 01/20/19 due to altered mental status from hepatic encephalopathy and hyperammonemia Patient was successfully extubated on 01/20/19, saturating well on NC 4 L O2 Frequent neuro check Maintain aspiration precaution Mucomyst q12 with albuterol for mucus plug Orgogastric Tube feeding Suplena at 50 cc/hr. Swallow evaluation failed today c/w physical therapy (2) Hospital-acquired bacterial pneumonia Current Visit: Yes Status: Acute Comment: Sputum culture o n 01/17/19 grew pseudomonas Sputum culture on 01/10/19 showed Pseudomonas and Klebsiella chest CT on 01/15/19 shows posterior bibasilar pneumonic consolidation chest x-ray shows haziness on right middle lobe along the right heart border -ID consult: recrishabh appreciated -c/w Meropenem 1 gm q8 (day 8) (3) Hepatic encephalopathy Current Visit: Yes Status: Resolved Priority: High Comment: Continued improvement of mental status c/w lactulose and rifaximin Frequent neuro check Ammonia level 32 today (4) Hypernatremia Current Visit: Yes Status: Resolved Comment: -Nephologist Dr. Lorenzo on board -Serum Na 147 -c/w free water flush 300 cc q4hr per nephro necs (5) DM type 2 (diabetes mellitus, type 2) Current Visit: No Status: Acute Comment: -Had blood sugar of 75 this morning. -decreased levemir to 25 units SC Qdaily -C/W lispro sliding scale q4 -Monitor blood glucose (6) Hyperosmolality Current Visit: Yes Status: Acute Comment: -Improved -Serum Osmolality 328 -Decrease D5 1/2 NS to 42 cc/hr -c/w accucheck q4 with sliding scale insulin (7) Urinary retention Current Visit: Yes Status: Acute Comment: -PSA 0.215 -c/w Flomax 0.4 mg OGT daily -Repeat UA in neg for signs of infection -Intermittent cath daily -Consider Howe placement (8) Thrombocytopenia Current Visit: Yes Status: Acute Comment: improving (9) Physical deconditioning Current Visit: Yes Status: Acute Comment: c/w daily PT/OT <Sinan Santana - Last Filed: 01/25/19 15:31> Assessment/Plan - Assessment and Plan (Free Text) Plan: Attestation: Patient seen and examined at the bedside with Resident Dr. Lizeth Paris; and I agree with his outline of plans and management documented above as discussed on AM rounds reflecting my review of all applicable clinical data, and participation in the care of the patient throughout the day in ICU; today, January 25, 2019.
[2019-01-25] MEDS ORDERED: Dextrose 5%/0.45% NS 1,000 ML IV SCH (11:45)
--- NOTE | 2019-01-25 11:54 | CP.PCM.PN ---
Subjective - Date & Time of Evaluation Date of Evaluation: 01/25/19 Time of Evaluation: 11:54 - Subjective Subjective: ID note- Patient seen and examined today in ICU. awake and alert. denies any cough or sob. c/o thirst. denies any pain. denies any fever or chills. Objective - Vital Signs/Intake and Output Vital Signs (last 24 hours): Temp Pulse Resp BP Pulse Ox 98.1 F 77 18 121/61 99 01/25/19 08:00 01/25/19 08:34 01/25/19 08:00 01/25/19 08:34 01/25/19 08:00 Intake and Output: 01/25/19 01/25/19 06:59 18:59 Intake Total 1730 Output Total 300 Balance 1430 - Medications Medications: Current Medications Acetaminophen (Tylenol 650mg/20.3ml Solution Ud) 650 mg NG Q6 PRN PRN Reason: for temp>100.4 deg f Acetylcysteine (Acetylcysteine 20%) 2 ml INH RBID [facility] Last Admin: 01/25/19 08:37 Dose: 2 ml Albuterol Sulfate (Albuterol 0.083% Inhal Mana (2.5 Mg/3 Ml) Ud) 2.5 mg INH RBID [facility] Last Admin: 01/25/19 08:37 Dose: 2.5 mg Carvedilol (Coreg) 6.25 mg NG Q12 [facility] Last Admin: 01/25/19 08:34 Dose: 6.25 mg Cilostazol (Pletal) 50 mg PO Q12 [facility] Last Admin: 01/07/19 10:22 Dose: Not Given Dextrose (Dextrose 50% Inj) 0 ml IV STAT PRN; Protocol PRN Reason: Hypoglycemia Protocol Last Admin: 01/24/19 04:36 Dose: 50 ml Dextrose (Glutose 15) 0 gm PO ONCE PRN; Protocol PRN Reason: Hypoglycemia Protocol Folic Acid (Folic Acid) 1 mg GT DAILY [facility] Last Admin: 01/25/19 08:36 Dose: 1 mg Glucagon (Glucagen Diagnostic Kit) 0 mg IM STAT PRN; Protocol PRN Reason: Hypoglycemia Protocol Hydralazine HCl (Apresoline) 25 mg PO TID [facility] Last Admin: 01/25/19 08:33 Dose: 25 mg Meropenem 1 gm/ Sodium (Chloride) 100 mls @ 100 mls/hr IVPB Q8 [facility]; Protocol Last Admin: 01/25/19 08:38 Dose: 100 mls/hr Dextrose/Sodium Chloride (Dextrose 5%/0.45% Ns 1000 Ml) 1,000 mls @ 42 mls/hr IV .[id number] [facility] Stop: 01/26/19 11:38 Insulin Detemir (Levemir) 25 units SC HS [facility] Insulin Human Lispro (Humalog) 0 units SC Q4 [facility]; Protocol Last Admin: 01/25/19 08:37 Dose: Not Given Lactulose (Enulose) 20 gm GT Q4H [facility] Last Admin: 01/25/19 10:28 Dose: 20 gm Levothyroxine Sodium (Synthroid) 50 mcg PO DAILY@0630 [facility] Last Admin: 01/24/19 05:36 Dose: 50 mcg Pantoprazole Sodium (Protonix Susp) 40 mg NG DAILY [facility] Last Admin: 01/25/19 08:39 Dose: 40 mg Rifaximin (Xifaxan) 550 mg PO BID [facility]; Protocol Last Admin: 01/25/19 08:40 Dose: 550 mg Tamsulosin HCl (Flomax) 0.4 mg NG DAILY [facility] Last Admin: 01/25/19 08:36 Dose: 0.4 mg Thiamine HCl (Vitamin B1 Tab) 100 mg GT DAILY [facility] Last Admin: 01/25/19 08:39 Dose: 100 mg - Labs Labs: - Additional Findings Additional findings: - Constitutional Additional comments: awake and more alert today - Neck Exam Neck exam: Positive for: Full Rom - Respiratory Exam Additional comments: good aeration b/l no wheezing - Cardiovascular Exam Cardiovascular Exam: RRR, +S1, +S2 - GI/Abdominal Exam GI & Abdominal Exam: Normal Bowel Sounds, Soft Additional comments: NT, ND - Extremities Exam Extremities exam: Positive for: normal inspection - Neurological Exam Neurological exam: awake and much more alert and can answer questions Laboratory Results - last 72 hr 01/22/19 01/22/19 01/23/19 16:53 21:08 01:22 WBC RBC Hgb Hct MCV MCH MCHC RDW Plt Count MPV Neut % (Auto) Lymph % (Auto) [place] % (Auto) Eos % (Auto) Baso % (Auto) Neut # (Auto) Lymph # (Auto) [place] # (Auto) Eos # (Auto) Baso # (Auto) Neutrophils % (Manual) Lymphocytes % (Manual) Monocytes % (Manual) Eosinophils % (Manual) Basophils % (Manual) Toxic Granulation Platelet Estimate Hypochromasia (manual) Anisocytosis (manual) Macrocytosis (manual) PT INR APTT Sodium Potassium Chloride Carbon Dioxide Anion Gap BUN Creatinine Est GFR ( Amer) Est GFR (Non-Af Amer) POC Glucose (mg/dL) 312 H 299 H 236 H Random Glucose Serum Osmolality Calcium Phosphorus Magnesium Total Bilirubin GGT AST ALT Alkaline Phosphatase Ammonia Total Protein Albumin Globulin Albumin/Globulin Ratio Prostate Specific Ag Urine Color Urine Clarity Urine pH Ur Specific [place] Urine Protein Urine Glucose (UA) Urine Ketones Urine Blood Urine Nitrate Urine Bilirubin Urine Urobilinogen Ur Leukocyte Esterase Urine RBC (Auto) Urine Microscopic WBC Hyaline Casts 01/23/19 01/23/19 01/23/19 05:31 05:40 05:40 WBC 8.7 RBC 2.84 L Hgb 11.2 L Hct 32.7 L MCV 115.3 H MCH 39.3 H MCHC 34.1 RDW 16.7 H Plt Count 126 L MPV 11.0 Neut % (Auto) 79.6 H Lymph % (Auto) 8.1 L [place] % (Auto) 8.6 Eos % (Auto) 3.2 Baso % (Auto) 0.5 Neut # (Auto) 6.9 Lymph # (Auto) 0.7 L [place] # (Auto) 0.8 Eos # (Auto) 0.3 Baso # (Auto) 0.0 Neutrophils % (Manual) 79 H Lymphocytes % (Manual) 10 L Monocytes % (Manual) 8 Eosinophils % (Manual) 2 Basophils % (Manual) 1 Toxic Granulation Present Platelet Estimate Decreased L Hypochromasia (manual) Slight Anisocytosis (manual) Slight Macrocytosis (manual) Moderate PT INR APTT Sodium 148 Potassium 3.8 Chloride 121 H Carbon Dioxide 27 Anion Gap 4 L BUN 47 H Creatinine 0.8 Est GFR ( Amer) > 60 Est GFR (Non-Af Amer) > 60 POC Glucose (mg/dL) 224 H Random Glucose 237 H Serum Osmolality Calcium 8.7 Phosphorus 2.8 Magnesium 2.6 H Total Bilirubin 2.0 H GGT AST 94 H ALT 62 Alkaline Phosphatase 415 H D Ammonia Total Protein 5.6 L Albumin 1.9 L Globulin 3.7 Albumin/Globulin Ratio 0.5 L Prostate Specific Ag 0.215 Urine Color Urine Clarity Urine pH Ur Specific [place] Urine Protein Urine Glucose (UA) Urine Ketones Urine Blood Urine Nitrate Urine Bilirubin Urine Urobilinogen Ur Leukocyte Esterase Urine RBC (Auto) Urine Microscopic WBC Hyaline Casts 01/23/19 01/23/19 01/23/19 09:19 10:30 10:30 WBC RBC Hgb Hct MCV MCH MCHC RDW Plt Count MPV Neut % (Auto) Lymph % (Auto) [place] % (Auto) Eos % (Auto) Baso % (Auto) Neut # (Auto) Lymph # (Auto) [place] # (Auto) Eos # (Auto) Baso # (Auto) Neutrophils % (Manual) Lymphocytes % (Manual) Monocytes % (Manual) Eosinophils % (Manual) Basophils % (Manual) Toxic Granulation Platelet Estimate Hypochromasia (manual) Anisocytosis (manual) Macrocytosis (manual) PT 16.1 H INR 1.4 APTT 31.5 Sodium Potassium Chloride Carbon Dioxide Anion Gap BUN Creatinine Est GFR ( Amer) Est GFR (Non-Af Amer) POC Glucose (mg/dL) 212 H Random Glucose Serum Osmolality Calcium Phosphorus Magnesium Total Bilirubin GGT 303 H AST ALT Alkaline Phosphatase Ammonia Total Protein Albumin Globulin Albumin/Globulin Ratio Prostate Specific Ag Urine Color Urine Clarity Urine pH Ur Specific [place] Urine Protein Urine Glucose (UA) Urine Ketones Urine Blood Urine Nitrate Urine Bilirubin Urine Urobilinogen Ur Leukocyte Esterase Urine RBC (Auto) Urine Microscopic WBC Hyaline Casts 01/23/19 01/23/19 01/23/19 10:30 16:22 20:11 WBC RBC Hgb Hct MCV MCH MCHC RDW Plt Count MPV Neut % (Auto) Lymph % (Auto) [place] % (Auto) Eos % (Auto) Baso % (Auto) Neut # (Auto) Lymph # (Auto) [place] # (Auto) Eos # (Auto) Baso # (Auto) Neutrophils % (Manual) Lymphocytes % (Manual) Monocytes % (Manual) Eosinophils % (Manual) Basophils % (Manual) Toxic Granulation Platelet Estimate Hypochromasia (manual) Anisocytosis (manual) Macrocytosis (manual) PT INR APTT Sodium Potassium Chloride Carbon Dioxide Anion Gap BUN Creatinine Est GFR ( Amer) Est GFR (Non-Af Amer) POC Glucose (mg/dL) 187 H 182 H Random Glucose Serum Osmolality Calcium Phosphorus Magnesium Total Bilirubin GGT AST ALT Alkaline Phosphatase Ammonia 40 H D Total Protein Albumin Globulin Albumin/Globulin Ratio Prostate Specific Ag Urine Color Urine Clarity Urine pH Ur Specific [place] Urine Protein Urine Glucose (UA) Urine Ketones Urine Blood Urine Nitrate Urine Bilirubin Urine Urobilinogen Ur Leukocyte Esterase Urine RBC (Auto) Urine Microscopic WBC Hyaline Casts 01/24/19 01/24/19 01/24/19 00:55 04:18 04:18 WBC RBC Hgb Hct MCV MCH MCHC RDW Plt Count MPV Neut % (Auto) Lymph % (Auto) [place] % (Auto) Eos % (Auto) Baso % (Auto) Neut # (Auto) Lymph # (Auto) [place] # (Auto) Eos # (Auto) Baso # (Auto) Neutrophils % (Manual) Lymphocytes % (Manual) Monocytes % (Manual) Eosinophils % (Manual) Basophils % (Manual) Toxic Granulation Platelet Estimate Hypochromasia (manual) Anisocytosis (manual) Macrocytosis (manual) PT INR APTT Sodium Potassium Chloride Carbon Dioxide Anion Gap BUN Creatinine Est GFR ( Amer) Est GFR (Non-Af Amer) POC Glucose (mg/dL) 78 Random Glucose Serum Osmolality 343 H Calcium Phosphorus Magnesium Total Bilirubin GGT AST ALT Alkaline Phosphatase Ammonia 47 H Total Protein Albumin Globulin Albumin/Globulin Ratio Prostate Specific Ag Urine Color Urine Clarity Urine pH Ur Specific [place] Urine Protein Urine Glucose (UA) Urine Ketones Urine Blood Urine Nitrate Urine Bilirubin Urine Urobilinogen Ur Leukocyte Esterase Urine RBC (Auto) Urine Microscopic WBC Hyaline Casts 01/24/19 01/24/19 01/24/19 04:18 04:18 04:32 WBC 8.6 RBC 2.97 L Hgb 11.6 L Hct 34.0 L MCV 114.4 H MCH 39.1 H MCHC 34.2 RDW 16.9 H Plt Count 131 MPV 11.0 Neut % (Auto) 78.4 H Lymph % (Auto) 9.1 L [place] % (Auto) 9.3 Eos % (Auto) 2.7 Baso % (Auto) 0.5 Neut # (Auto) 6.7 Lymph # (Auto) 0.8 L [place] # (Auto) 0.8 Eos # (Auto) 0.2 Baso # (Auto) 0.0 Neutrophils % (Manual) Lymphocytes % (Manual) Monocytes % (Manual) Eosinophils % (Manual) Basophils % (Manual) Toxic Granulation Platelet Estimate Hypochromasia (manual) Anisocytosis (manual) Macrocytosis (manual) PT INR APTT Sodium 149 H Potassium 4.1 Chloride 122 H Carbon Dioxide 29 Anion Gap 2 L BUN 41 H Creatinine 0.7 L Est GFR ( Amer) > 60 Est GFR (Non-Af Amer) > 60 POC Glucose (mg/dL) 52 L Random Glucose 206 H Serum Osmolality Calcium 9.1 Phosphorus 3.1 Magnesium 2.5 H Total Bilirubin 2.3 H GGT AST 130 H D ALT 62 Alkaline Phosphatase 358 H Ammonia Total Protein 6.4 Albumin 2.1 L Globulin 4.2 H Albumin/Globulin Ratio 0.5 L Prostate Specific Ag Urine Color Urine Clarity Urine pH Ur Specific [place] Urine Protein Urine Glucose (UA) Urine Ketones Urine Blood Urine Nitrate Urine Bilirubin Urine Urobilinogen Ur Leukocyte Esterase Urine RBC (Auto) Urine Microscopic WBC Hyaline Casts 01/24/19 01/24/19 01/24/19 05:17 09:09 13:21 WBC RBC Hgb Hct MCV MCH MCHC RDW Plt Count MPV Neut % (Auto) Lymph % (Auto) [place] % (Auto) Eos % (Auto) Baso % (Auto) Neut # (Auto) Lymph # (Auto) [place] # (Auto) Eos # (Auto) Baso # (Auto) Neutrophils % (Manual) Lymphocytes % (Manual) Monocytes % (Manual) Eosinophils % (Manual) Basophils % (Manual) Toxic Granulation Platelet Estimate Hypochromasia (manual) Anisocytosis (manual) Macrocytosis (manual) PT INR APTT Sodium Potassium Chloride Carbon Dioxide Anion Gap BUN Creatinine Est GFR ( Amer) Est GFR (Non-Af Amer) POC Glucose (mg/dL) 148 H 153 H 179 H Random Glucose Serum Osmolality Calcium Phosphorus Magnesium Total Bilirubin GGT AST ALT Alkaline Phosphatase Ammonia Total Protein Albumin Globulin Albumin/Globulin Ratio Prostate Specific Ag Urine Color Urine Clarity Urine pH Ur Specific [place] Urine Protein Urine Glucose (UA) Urine Ketones Urine Blood Urine Nitrate Urine Bilirubin Urine Urobilinogen Ur Leukocyte Esterase Urine RBC (Auto) Urine Microscopic WBC Hyaline Casts 01/24/19 01/24/19 01/24/19 16:17 16:21 21:09 WBC RBC Hgb Hct MCV MCH MCHC RDW Plt Count MPV Neut % (Auto) Lymph % (Auto) [place] % (Auto) Eos % (Auto) Baso % (Auto) Neut # (Auto) Lymph # (Auto) [place] # (Auto) Eos # (Auto) Baso # (Auto) Neutrophils % (Manual) Lymphocytes % (Manual) Monocytes % (Manual) Eosinophils % (Manual) Basophils % (Manual) Toxic Granulation Platelet Estimate Hypochromasia (manual) Anisocytosis (manual) Macrocytosis (manual) PT INR APTT Sodium Potassium Chloride Carbon Dioxide Anion Gap BUN Creatinine Est GFR ( Amer) Est GFR (Non-Af Amer) POC Glucose (mg/dL) 152 H 106 Random Glucose Serum Osmolality Calcium Phosphorus Magnesium Total Bilirubin GGT AST ALT Alkaline Phosphatase Ammonia Total Protein Albumin Globulin Albumin/Globulin Ratio Prostate Specific Ag Urine Color [place] Urine Clarity Slighty-cloudy Urine pH 5.0 Ur Specific [place] 1.033 H Urine Protein 30 Urine Glucose (UA) 50 Urine Ketones Negative Urine Blood Negative Urine Nitrate Negative Urine Bilirubin Negative Urine Urobilinogen 0.2-1.0 Ur Leukocyte Esterase Neg Urine RBC (Auto) 3 Urine Microscopic WBC 2 Hyaline Casts 3-5 H 01/25/19 01/25/19 01/25/19 00:38 05:25 05:25 WBC 6.8 RBC 2.58 L Hgb 9.9 L Hct 29.5 L MCV 114.3 H MCH 38.3 H MCHC 33.5 RDW 16.8 H Plt Count 111 L D MPV 11.0 Neut % (Auto) 74.5 Lymph % (Auto) 11.7 L [place] % (Auto) 9.6 Eos % (Auto) 3.5 Baso % (Auto) 0.7 Neut # (Auto) 5.1 Lymph # (Auto) 0.8 L [place] # (Auto) 0.7 Eos # (Auto) 0.2 Baso # (Auto) 0.0 Neutrophils % (Manual) Lymphocytes % (Manual) Monocytes % (Manual) Eosinophils % (Manual) Basophils % (Manual) Toxic Granulation Platelet Estimate Hypochromasia (manual) Anisocytosis (manual) Macrocytosis (manual) PT INR APTT Sodium 147 Potassium 3.6 Chloride 122 H Carbon Dioxide 26 Anion Gap 3 L BUN 36 H Creatinine 0.8 Est GFR ( Amer) > 60 Est GFR (Non-Af Amer) > 60 POC Glucose (mg/dL) 122 H Random Glucose 104 Serum Osmolality Calcium 8.6 Phosphorus 2.9 Magnesium 2.3 Total Bilirubin 1.7 H GGT AST 95 H D ALT 62 Alkaline Phosphatase 292 H Ammonia Total Protein 5.6 L Albumin 1.8 L Globulin 3.8 Albumin/Globulin Ratio 0.5 L Prostate Specific Ag Urine Color Urine Clarity Urine pH Ur Specific [place] Urine Protein Urine Glucose (UA) Urine Ketones Urine Blood Urine Nitrate Urine Bilirubin Urine Urobilinogen Ur Leukocyte Esterase Urine RBC (Auto) Urine Microscopic WBC Hyaline Casts 01/25/19 01/25/19 01/25/19 05:25 05:25 07:04 WBC RBC Hgb Hct MCV MCH MCHC RDW Plt Count MPV Neut % (Auto) Lymph % (Auto) [place] % (Auto) Eos % (Auto) Baso % (Auto) Neut # (Auto) Lymph # (Auto) [place] # (Auto) Eos # (Auto) Baso # (Auto) Neutrophils % (Manual) Lymphocytes % (Manual) Monocytes % (Manual) Eosinophils % (Manual) Basophils % (Manual) Toxic Granulation Platelet Estimate Hypochromasia (manual) Anisocytosis (manual) Macrocytosis (manual) PT INR APTT Sodium Potassium Chloride Carbon Dioxide Anion Gap BUN Creatinine Est GFR ( Amer) Est GFR (Non-Af Amer) POC Glucose (mg/dL) 98 Random Glucose Serum Osmolality 328 H Calcium Phosphorus Magnesium Total Bilirubin GGT AST ALT Alkaline Phosphatase Ammonia 32 D Total Protein Albumin Globulin Albumin/Globulin Ratio Prostate Specific Ag Urine Color Urine Clarity Urine pH Ur Specific [place] Urine Protein Urine Glucose (UA) Urine Ketones Urine Blood Urine Nitrate Urine Bilirubin Urine Urobilinogen Ur Leukocyte Esterase Urine RBC (Auto) Urine Microscopic WBC Hyaline Casts 01/25/19 01/25/19 08:15 12:02 WBC RBC Hgb Hct MCV MCH MCHC RDW Plt Count MPV Neut % (Auto) Lymph % (Auto) [place] % (Auto) Eos % (Auto) Baso % (Auto) Neut # (Auto) Lymph # (Auto) [place] # (Auto) Eos # (Auto) Baso # (Auto) Neutrophils % (Manual) Lymphocytes % (Manual) Monocytes % (Manual) Eosinophils % (Manual) Basophils % (Manual) Toxic Granulation Platelet Estimate Hypochromasia (manual) Anisocytosis (manual) Macrocytosis (manual) PT INR APTT Sodium Potassium Chloride Carbon Dioxide Anion Gap BUN Creatinine Est GFR ( Amer) Est GFR (Non-Af Amer) POC Glucose (mg/dL) 75 89 Random Glucose Serum Osmolality Calcium Phosphorus Magnesium Total Bilirubin GGT AST ALT Alkaline Phosphatase Ammonia Total Protein Albumin Globulin Albumin/Globulin Ratio Prostate Specific Ag Urine Color Urine Clarity Urine pH Ur Specific [place] Urine Protein Urine Glucose (UA) Urine Ketones Urine Blood Urine Nitrate Urine Bilirubin Urine Urobilinogen Ur Leukocyte Esterase Urine RBC (Auto) Urine Microscopic WBC Hyaline Casts Microbiology 01/18/19 17:39 Blood-Venous Blood Culture - Final NO GROWTH AFTER 5 DAYS 01/18/19 17:39 Blood-Venous Gram Stain - Final TEST NOT PERFORMED 01/18/19 12:20 Blood-Venous Blood Culture - Final NO GROWTH AFTER 5 DAYS 01/18/19 12:20 Blood-Venous Gram Stain - Final TEST NOT PERFORMED 01/10/19 21:25 Trachasp Gram Stain - Final 01/10/19 21:25 Trachasp Sputum Culture - Final Klebsiella Oxytoca Pseudomonas Aeruginosa 01/15/19 18:40 Blood Blood Culture - Final NO GROWTH AFTER 5 DAYS 01/15/19 18:40 Blood Gram Stain - Final TEST NOT PERFORMED 01/15/19 17:45 Blood Blood Culture - Final NO GROWTH AFTER 5 DAYS 01/15/19 17:45 Blood Gram Stain - Final TEST NOT PERFORMED 01/17/19 18:20 Sputum Gram Stain - Final 01/17/19 18:20 Sputum Sputum Culture - Final Pseudomonas Aeruginosa 01/15/19 07:16 Urine,Howe Urine Culture - Final Beta Hemolytic Strep Group B 01/07/19 18:08 Urine,Howe Urine Culture - Final Beta Hemolytic Strep Group B 01/06/19 10:41 Naris MRSA Culture (Admit) - Final MRSA NOT DETECTED Accession No. : [id number] Patient Name / ID : SUSAN ROMERO / [id number] Exam Date : 01/25/2019 12:40:45 ( Approved ) Study Comment : Sex / Age : M / 69Y Creator : Dictator : Adrián Joshi MD Privacy Officer : Professor Of Forestry : Adrián Joshi MD Approver2 : Report Date : My Comment : Date of service: 01/25/2019 HISTORY: PICC REVERIFICATION AFTER OVER THE WIRE EXCHANGE COMPARISON: Portable chest 01/25/2019 10:34 a.m.. TECHNIQUE: 1 view obtained. FINDINGS: There has been interval replacement of the left PICC now terminating at the superior vena cava mid to distal segment. LUNGS: Low inspiratory volumes remain with no definite alveolitis bilaterally although linear atelectasis seen at both bases minimally. PLEURA: No significant pleural effusion identified, no pneumothorax apparent. CARDIOVASCULAR: No aortic atherosclerotic calcification present. Normal cardiac size. No pulmonary vascular congestion. OSSEOUS STRUCTURES: No significant abnormalities. VISUALIZED UPPER ABDOMEN: Normal. OTHER FINDINGS: None. IMPRESSION: Placement at the left upper extremity now terminates at appear vena cava. No pneumothorax bilaterally. Linear atelectasis both bases. Low pulmonary inspiration volumes again evident. Assessment and Plan (1) Hospital-acquired bacterial pneumonia Status: Acute (2) Acute respiratory failure Status: Resolved - Assessment and Plan (Free Text) Assessment: A/P- 69 year old male with h/o ETOH abuse, liver cirrhosis, liver cancer undergoing chemo who was admitted with change in MS . s/p extubation 6 days ago. clinically much improved. afebrile past 6 days. blood cx- neg x 4 Et tube cx- KLebsilele and pseudomonas not ESBL sputum cx- pseudomonas cx Plan- continue with Meropnem 1 gram IV q8 hours.day #8. advise 2 more days of IV meropenem for both pseudomonas and klebsiella pneumonia treatment . monitor aspiration precautions. all labs and imaging reviewed. Critical care time spent 30 minutes.
--- NOTE | 2019-01-25 12:05 | CP.PCM.PN ---
Subjective - Date & Time of Evaluation Date of Evaluation: 01/25/19 Time of Evaluation: 12:04 - Subjective Subjective: Patient awake and conscious improving sitting up in bed Vital signs stable Objective - Vital Signs/Intake and Output Vital Signs (last 24 hours): Temp Pulse Resp BP Pulse Ox 98.1 F 77 18 121/61 99 01/25/19 08:00 01/25/19 08:34 01/25/19 08:00 01/25/19 08:34 01/25/19 08:00 Intake and Output: 01/25/19 01/25/19 06:59 18:59 Intake Total 1730 Output Total 300 Balance 1430 - Medications Medications: Current Medications Acetaminophen (Tylenol 650mg/20.3ml Solution Ud) 650 mg NG Q6 PRN PRN Reason: for temp>100.4 deg f Acetylcysteine (Acetylcysteine 20%) 2 ml INH RBID [facility] Last Admin: 01/25/19 08:37 Dose: 2 ml Albuterol Sulfate (Albuterol 0.083% Inhal Mana (2.5 Mg/3 Ml) Ud) 2.5 mg INH RBID [facility] Last Admin: 01/25/19 08:37 Dose: 2.5 mg Carvedilol (Coreg) 6.25 mg NG Q12 [facility] Last Admin: 01/25/19 08:34 Dose: 6.25 mg Cilostazol (Pletal) 50 mg PO Q12 [facility] Last Admin: 01/07/19 10:22 Dose: Not Given Dextrose (Dextrose 50% Inj) 0 ml IV STAT PRN; Protocol PRN Reason: Hypoglycemia Protocol Last Admin: 01/24/19 04:36 Dose: 50 ml Dextrose (Glutose 15) 0 gm PO ONCE PRN; Protocol PRN Reason: Hypoglycemia Protocol Folic Acid (Folic Acid) 1 mg GT DAILY [facility] Last Admin: 01/25/19 08:36 Dose: 1 mg Glucagon (Glucagen Diagnostic Kit) 0 mg IM STAT PRN; Protocol PRN Reason: Hypoglycemia Protocol Hydralazine HCl (Apresoline) 25 mg PO TID [facility] Last Admin: 01/25/19 08:33 Dose: 25 mg Meropenem 1 gm/ Sodium (Chloride) 100 mls @ 100 mls/hr IVPB Q8 [facility]; Protocol Last Admin: 01/25/19 08:38 Dose: 100 mls/hr Dextrose/Sodium Chloride (Dextrose 5%/0.45% Ns 1000 Ml) 1,000 mls @ 42 mls/hr IV .[id number] [facility] Stop: 01/26/19 11:38 Insulin Detemir (Levemir) 25 units SC HS [facility] Insulin Human Lispro (Humalog) 0 units SC Q4 [facility]; Protocol Last Admin: 01/25/19 08:37 Dose: Not Given Lactulose (Enulose) 20 gm GT Q4H [facility] Last Admin: 01/25/19 10:28 Dose: 20 gm Levothyroxine Sodium (Synthroid) 50 mcg PO DAILY@0630 [facility] Last Admin: 01/24/19 05:36 Dose: 50 mcg Pantoprazole Sodium (Protonix Susp) 40 mg NG DAILY [facility] Last Admin: 01/25/19 08:39 Dose: 40 mg Rifaximin (Xifaxan) 550 mg PO BID [facility]; Protocol Last Admin: 01/25/19 08:40 Dose: 550 mg Tamsulosin HCl (Flomax) 0.4 mg NG DAILY [facility] Last Admin: 01/25/19 08:36 Dose: 0.4 mg Thiamine HCl (Vitamin B1 Tab) 100 mg GT DAILY [facility] Last Admin: 01/25/19 08:39 Dose: 100 mg - Labs Labs: 01/25/19 05:25 01/25/19 05:25 PT 16.1 Seconds (9.8-13.1) H 01/23/19 10:30 INR 1.4 01/23/19 10:30 APTT 31.5 Seconds (25.6-37.1) 01/23/19 10:30 - Constitutional Appears: No Acute Distress - Eye Exam Eye Exam: Conjunctival injection - Respiratory Exam Respiratory Exam: NORMAL BREATHING PATTERN. absent: Chest Wall Tenderness - GI/Abdominal Exam GI & Abdominal Exam: Soft - Extremities Exam Extremities Exam: absent: Calf Tenderness - Back Exam Back Exam: absent: CVA tenderness (L) - Neurological Exam Neurological Exam: Alert - Skin Skin Exam: absent: Cyanosis Assessment and Plan (1) Hyponatremia Status: Acute (2) NIRAJ (acute kidney injury) Assessment & Plan: Acute kidney injury recovering hypernatremia Patient diagnosed with liver cirrhosis and liver malignancy ?? Hepatic encephalopathy improving Diabetes mellitus Recommendation Serum sodium corrected Knee function stable and recovered from acute kidney injury Electrolytes stable Will follow-up as needed thank you Status: Resolved (3) Acute respiratory failure Status: Resolved (4) Altered mental status Status: Resolved (5) Hepatic encephalopathy Status: Resolved (6) Hyperammonemia Status: Acute (7) Liver mass Status: Acute (8) Thrombocytopenia Status: Acute
--- NOTE | 2019-01-25 12:19 | RAD ---
Date of service: 01/25/2019 HISTORY: PICC LINE INSERTION VERIFICATION COMPARISON: No prior. TECHNIQUE: 1 view obtained. FINDINGS: LUNGS: Left PICC now inserted terminating at proximal brachiocephalic vein. Advancement at least 4-5 cm is advised to access distal superior vena cava. Orogastric tube unchanged in position as imaged. No interval infiltrate bilaterally. Linear atelectasis or fibrosis in the bilateral bases once again. PLEURA: No significant pleural effusion identified, no pneumothorax apparent. CARDIOVASCULAR: No aortic atherosclerotic calcification present. Stable cardiac size. No pulmonary vascular congestion. OSSEOUS STRUCTURES: No significant abnormalities. VISUALIZED UPPER ABDOMEN: Normal. OTHER FINDINGS: None. IMPRESSION: No interval infiltrate, pleural effusion or pneumothorax. No pulmonary vascular congestion. Left upper extremity PICC has been inserted and terminates in brachiocephalic vein. Advancement into superior vena cava is advised or replacement. Orogastric tube unchanged grossly.
--- NOTE | 2019-01-25 14:26 | RAD ---
Date of service: 01/25/2019 HISTORY: PICC REVERIFICATION AFTER OVER THE WIRE EXCHANGE COMPARISON: Portable chest 01/25/2019 10:34 a.m.. TECHNIQUE: 1 view obtained. FINDINGS: There has been interval replacement of the left PICC now terminating at the superior vena cava mid to distal segment. LUNGS: Low inspiratory volumes remain with no definite alveolitis bilaterally although linear atelectasis seen at both bases minimally. PLEURA: No significant pleural effusion identified, no pneumothorax apparent. CARDIOVASCULAR: No aortic atherosclerotic calcification present. Normal cardiac size. No pulmonary vascular congestion. OSSEOUS STRUCTURES: No significant abnormalities. VISUALIZED UPPER ABDOMEN: Normal. OTHER FINDINGS: None. IMPRESSION: Placement at the left upper extremity now terminates at appear vena cava. No pneumothorax bilaterally. Linear atelectasis both bases. Low pulmonary inspiration volumes again evident.
--- NOTE | 2019-01-25 19:54 | CP.PCM.PN ---
Subjective - Date & Time of Evaluation Date of Evaluation: 01/25/19 Time of Evaluation: 12:00 - Subjective Subjective: Sitting in chair Objective - Vital Signs/Intake and Output Vital Signs (last 24 hours): Temp Pulse Resp BP Pulse Ox 98.1 F 69 15 101/49 L 99 01/25/19 16:00 01/25/19 18:00 01/25/19 18:00 01/25/19 18:00 01/25/19 18:00 Intake and Output: 01/25/19 01/26/19 18:59 06:59 Intake Total 2302 Output Total 1 Balance 2301 - Medications Medications: Current Medications Acetaminophen (Tylenol 650mg/20.3ml Solution Ud) 650 mg NG Q6 PRN PRN Reason: for temp>100.4 deg f Acetylcysteine (Acetylcysteine 20%) 2 ml INH RBID JOANNA Last Admin: 01/25/19 08:37 Dose: 2 ml Albuterol Sulfate (Albuterol 0.083% Inhal Mana (2.5 Mg/3 Ml) Ud) 2.5 mg INH RBID JOANNA Last Admin: 01/25/19 08:37 Dose: 2.5 mg Carvedilol (Coreg) 6.25 mg NG Q12 JOANNA Last Admin: 01/25/19 08:34 Dose: 6.25 mg Cilostazol (Pletal) 50 mg PO Q12 [facility] Last Admin: 01/07/19 10:22 Dose: Not Given Dextrose (Dextrose 50% Inj) 0 ml IV STAT PRN; Protocol PRN Reason: Hypoglycemia Protocol Last Admin: 01/24/19 04:36 Dose: 50 ml Dextrose (Glutose 15) 0 gm PO ONCE PRN; Protocol PRN Reason: Hypoglycemia Protocol Folic Acid (Folic Acid) 1 mg GT DAILY [facility] Last Admin: 01/25/19 08:36 Dose: 1 mg Glucagon (Glucagen Diagnostic Kit) 0 mg IM STAT PRN; Protocol PRN Reason: Hypoglycemia Protocol Meropenem 1 gm/ Sodium (Chloride) 100 mls @ 100 mls/hr IVPB Q8 [facility]; Protocol Last Admin: 01/25/19 17:33 Dose: 100 mls/hr Dextrose/Sodium Chloride (Dextrose 5%/0.45% Ns 1000 Ml) 1,000 mls @ 42 mls/hr IV .[id number] [facility] Stop: 01/26/19 11:38 Last Admin: 01/25/19 12:23 Dose: 42 mls/hr Insulin Detemir (Levemir) 25 units SC HS [facility] Insulin Human Lispro (Humalog) 0 units SC Q4 [facility]; Protocol Last Admin: 01/25/19 17:32 Dose: Not Given Lactulose (Enulose) 20 gm GT Q4H [facility] Last Admin: 01/25/19 17:36 Dose: 20 gm Levothyroxine Sodium (Synthroid) 50 mcg PO DAILY@0630 [facility] Last Admin: 01/24/19 05:36 Dose: 50 mcg Pantoprazole Sodium (Protonix Susp) 40 mg NG DAILY [facility] Last Admin: 01/25/19 08:39 Dose: 40 mg Rifaximin (Xifaxan) 550 mg PO BID [facility]; Protocol Last Admin: 01/25/19 17:35 Dose: 550 mg Tamsulosin HCl (Flomax) 0.4 mg NG DAILY [facility] Last Admin: 01/25/19 08:36 Dose: 0.4 mg Thiamine HCl (Vitamin B1 Tab) 100 mg GT DAILY [facility] Last Admin: 01/25/19 08:39 Dose: 100 mg - Labs Labs: 01/25/19 05:25 01/25/19 05:25 PT 16.1 Seconds (9.8-13.1) H 01/23/19 10:30 INR 1.4 01/23/19 10:30 APTT 31.5 Seconds (25.6-37.1) 01/23/19 10:30 - Head Exam Head Exam: ATRAUMATIC - Eye Exam Eye Exam: Normal appearance - ENT Exam ENT Exam: Mucous Membranes Dry - Respiratory Exam Respiratory Exam: Decreased Breath Sounds - Cardiovascular Exam Cardiovascular Exam: +S1, +S2 - GI/Abdominal Exam GI & Abdominal Exam: Normal Bowel Sounds Assessment and Plan (1) Thrombocytopenia Assessment & Plan: liver cirrhosis and splenic sequestration mild Status: Acute (2) Coagulopathy Assessment & Plan: liver disease nutritional component vit k and FFP PRN Status: Acute (3) Liver mass Assessment & Plan: HCC outpatient f/u with primary caseworker protective services Status: Acute
[2019-01-25] MEDS ORDERED: Insulin Detemir 100 Units/ml Inj SC SCH (22:00)
[2019-01-26] MEDS: Insulin Lispro (humaLOG) 100 Units/ml Inj SC SCH ×6 (01:15→21:21)
[2019-01-26] MEDS: Meropenem 1 GM in Sodium Chloride 0.9% 100 ML IVPB SCH ×3 (01:16→17:20)
[2019-01-26] MEDS: Levothyroxine 50 MCG TAB PO SCH (06:43)
[2019-01-26 07:29] LABS: BASO % 0.8 % (0.0-2.0); EOS # 0.2 K/uL (0.0-0.7); EOS % 4.8 % (0.0-4.0); HEMOGLOBIN 9.2 g/dL (12.0-18.0); LYMPH # 0.6 K/uL (1.0-4.3); LYMPH % 12.4 % (20.0-40.0); MEAN CELL VOLUME 116.3 fl (80.0-94.0); MEAN CORPUSCULAR HEMOGLOBIN 38.6 pg (27.0-31.0); MEAN CORPUSCULAR HGB CONC 33.2 g/dL (33.0-37.0); MEAN PLATELET VOLUME 11.3 fl (7.2-11.7); MONO # 0.6 K/uL (0.0-0.8); NEUT # 3.6 K/uL (1.8-7.0); NRBC % 0.1 % (0.0-0.0); RBC 2.38 Mil/uL (4.40-5.90)
[2019-01-26 07:49] LABS: ALB/GLOB RATIO 0.5 (1.0-2.1); ALBUMIN 1.6 g/dL (3.5-5.0); ALT/SGPT 50 U/L (21-72); AST/SGOT 82 U/L (17-59); BLOOD UREA NITROGEN 33 mg/dl (9-20); CALCIUM 8.4 mg/dL (8.4-10.2); GFR NON-AFRICAN AMERICAN > 60
[2019-01-26] MEDS: Pantoprazole 40 mg Susp UD NG SCH (08:06)
[2019-01-26] MEDS: Acetylcysteine 20% Inhal Soln (4ml) INH SCH ×3 (08:30→19:06)
[2019-01-26] MEDS: Albuterol 0.083% Inhal Sol (2.5 mg/3 mL) UD INH SCH ×3 (08:30→19:06)
--- NOTE | 2019-01-26 11:51 | CP.PCM.PN ---
Subjective - Date & Time of Evaluation Date of Evaluation: 01/26/19 Time of Evaluation: 11:51 - Subjective Subjective: Id note- Pt. seen and examined today in ICU. pt. awake and alert. denies any fever. denies any cough or sob. Objective - Vital Signs/Intake and Output Vital Signs (last 24 hours): Temp Pulse Resp BP Pulse Ox 96.8 F L 68 18 90/54 L 97 01/26/19 08:00 01/26/19 10:00 01/26/19 10:00 01/26/19 10:00 01/26/19 10:00 Intake and Output: 01/26/19 01/26/19 06:59 18:59 Intake Total 2062 768 Output Total 501 Balance 1561 768 - Medications Medications: Current Medications Acetaminophen (Tylenol 650mg/20.3ml Solution Ud) 650 mg NG Q6 PRN PRN Reason: for temp>100.4 deg f Acetylcysteine (Acetylcysteine 20%) 2 ml INH RBID [facility] Last Admin: 01/26/19 08:30 Dose: 2 ml Albuterol Sulfate (Albuterol 0.083% Inhal Mana (2.5 Mg/3 Ml) Ud) 2.5 mg INH RBID JOANNA Last Admin: 01/26/19 08:30 Dose: 2.5 mg Carvedilol (Coreg) 6.25 mg NG Q12 [facility] Last Admin: 01/26/19 08:04 Dose: Not Given Cilostazol (Pletal) 50 mg PO Q12 [facility] Last Admin: 01/07/19 10:22 Dose: Not Given Dextrose (Dextrose 50% Inj) 0 ml IV STAT PRN; Protocol PRN Reason: Hypoglycemia Protocol Last Admin: 01/24/19 04:36 Dose: 50 ml Dextrose (Glutose 15) 0 gm PO ONCE PRN; Protocol PRN Reason: Hypoglycemia Protocol Folic Acid (Folic Acid) 1 mg GT DAILY [facility] Last Admin: 01/26/19 08:06 Dose: 1 mg Glucagon (Glucagen Diagnostic Kit) 0 mg IM STAT PRN; Protocol PRN Reason: Hypoglycemia Protocol Meropenem 1 gm/ Sodium (Chloride) 100 mls @ 100 mls/hr IVPB Q8 [facility]; Protocol Last Admin: 01/26/19 08:07 Dose: 100 mls/hr Insulin Detemir (Levemir) 25 units SC HS [facility] Last Admin: 01/25/19 21:36 Dose: 25 units Insulin Human Lispro (Humalog) 0 units SC Q4 [facility]; Protocol Last Admin: 01/26/19 09:01 Dose: Not Given Lactulose (Enulose) 20 gm GT Q4H [facility] Last Admin: 01/26/19 09:15 Dose: 20 gm Levothyroxine Sodium (Synthroid) 50 mcg PO DAILY@0630 [facility] Last Admin: 01/26/19 06:43 Dose: 50 mcg Pantoprazole Sodium (Protonix Susp) 40 mg NG DAILY [facility] Last Admin: 01/26/19 08:06 Dose: 40 mg Rifaximin (Xifaxan) 550 mg PO BID [facility]; Protocol Last Admin: 01/26/19 08:07 Dose: 550 mg Tamsulosin HCl (Flomax) 0.4 mg NG DAILY [facility] Last Admin: 01/26/19 08:05 Dose: 0.4 mg Thiamine HCl (Vitamin B1 Tab) 100 mg GT DAILY [facility] Last Admin: 01/26/19 08:05 Dose: 100 mg - Labs Labs: - Additional Findings Additional findings: - Constitutional Additional comments: awake and more alert today - Neck Exam Neck exam: Positive for: Full Rom - Respiratory Exam Additional comments: good aeration b/l no wheezing - Cardiovascular Exam Cardiovascular Exam: RRR, +S1, +S2 - GI/Abdominal Exam GI & Abdominal Exam: Normal Bowel Sounds, Soft Additional comments: NT, ND - Extremities Exam Extremities exam: Positive for: normal inspection - Neurological Exam Neurological exam: awake and much more alert and can answer questions Laboratory Results - last 72 hr 01/23/19 01/23/19 01/23/19 10:30 16:22 20:11 WBC RBC Hgb Hct MCV MCH MCHC RDW Plt Count MPV Neut % (Auto) Lymph % (Auto) [place] % (Auto) Eos % (Auto) Baso % (Auto) Neut # (Auto) Lymph # (Auto) [place] # (Auto) Eos # (Auto) Baso # (Auto) Sodium Potassium Chloride Carbon Dioxide Anion Gap BUN Creatinine Est GFR ( Amer) Est GFR (Non-Af Amer) POC Glucose (mg/dL) 187 H 182 H Random Glucose Serum Osmolality Calcium Phosphorus Magnesium Total Bilirubin GGT 303 H AST ALT Alkaline Phosphatase Ammonia Total Protein Albumin Globulin Albumin/Globulin Ratio Urine Color Urine Clarity Urine pH Ur Specific [place] Urine Protein Urine Glucose (UA) Urine Ketones Urine Blood Urine Nitrate Urine Bilirubin Urine Urobilinogen Ur Leukocyte Esterase Urine RBC (Auto) Urine Microscopic WBC Hyaline Casts 01/24/19 01/24/19 01/24/19 00:55 04:18 04:18 WBC RBC Hgb Hct MCV MCH MCHC RDW Plt Count MPV Neut % (Auto) Lymph % (Auto) [place] % (Auto) Eos % (Auto) Baso % (Auto) Neut # (Auto) Lymph # (Auto) [place] # (Auto) Eos # (Auto) Baso # (Auto) Sodium Potassium Chloride Carbon Dioxide Anion Gap BUN Creatinine Est GFR ( Amer) Est GFR (Non-Af Amer) POC Glucose (mg/dL) 78 Random Glucose Serum Osmolality 343 H Calcium Phosphorus Magnesium Total Bilirubin GGT AST ALT Alkaline Phosphatase Ammonia 47 H Total Protein Albumin Globulin Albumin/Globulin Ratio Urine Color Urine Clarity Urine pH Ur Specific [place] Urine Protein Urine Glucose (UA) Urine Ketones Urine Blood Urine Nitrate Urine Bilirubin Urine Urobilinogen Ur Leukocyte Esterase Urine RBC (Auto) Urine Microscopic WBC Hyaline Casts 01/24/19 01/24/19 01/24/19 04:18 04:18 04:32 WBC 8.6 RBC 2.97 L Hgb 11.6 L Hct 34.0 L MCV 114.4 H MCH 39.1 H MCHC 34.2 RDW 16.9 H Plt Count 131 MPV 11.0 Neut % (Auto) 78.4 H Lymph % (Auto) 9.1 L [place] % (Auto) 9.3 Eos % (Auto) 2.7 Baso % (Auto) 0.5 Neut # (Auto) 6.7 Lymph # (Auto) 0.8 L [place] # (Auto) 0.8 Eos # (Auto) 0.2 Baso # (Auto) 0.0 Sodium 149 H Potassium 4.1 Chloride 122 H Carbon Dioxide 29 Anion Gap 2 L BUN 41 H Creatinine 0.7 L Est GFR ( Amer) > 60 Est GFR (Non-Af Amer) > 60 POC Glucose (mg/dL) 52 L Random Glucose 206 H Serum Osmolality Calcium 9.1 Phosphorus 3.1 Magnesium 2.5 H Total Bilirubin 2.3 H GGT AST 130 H D ALT 62 Alkaline Phosphatase 358 H Ammonia Total Protein 6.4 Albumin 2.1 L Globulin 4.2 H Albumin/Globulin Ratio 0.5 L Urine Color Urine Clarity Urine pH Ur Specific [place] Urine Protein Urine Glucose (UA) Urine Ketones Urine Blood Urine Nitrate Urine Bilirubin Urine Urobilinogen Ur Leukocyte Esterase Urine RBC (Auto) Urine Microscopic WBC Hyaline Casts 01/24/19 01/24/19 01/24/19 05:17 09:09 13:21 WBC RBC Hgb Hct MCV MCH MCHC RDW Plt Count MPV Neut % (Auto) Lymph % (Auto) [place] % (Auto) Eos % (Auto) Baso % (Auto) Neut # (Auto) Lymph # (Auto) [place] # (Auto) Eos # (Auto) Baso # (Auto) Sodium Potassium Chloride Carbon Dioxide Anion Gap BUN Creatinine Est GFR ( Amer) Est GFR (Non-Af Amer) POC Glucose (mg/dL) 148 H 153 H 179 H Random Glucose Serum Osmolality Calcium Phosphorus Magnesium Total Bilirubin GGT AST ALT Alkaline Phosphatase Ammonia Total Protein Albumin Globulin Albumin/Globulin Ratio Urine Color Urine Clarity Urine pH Ur Specific [place] Urine Protein Urine Glucose (UA) Urine Ketones Urine Blood Urine Nitrate Urine Bilirubin Urine Urobilinogen Ur Leukocyte Esterase Urine RBC (Auto) Urine Microscopic WBC Hyaline Casts 01/24/19 01/24/19 01/24/19 16:17 16:21 21:09 WBC RBC Hgb Hct MCV MCH MCHC RDW Plt Count MPV Neut % (Auto) Lymph % (Auto) [place] % (Auto) Eos % (Auto) Baso % (Auto) Neut # (Auto) Lymph # (Auto) [place] # (Auto) Eos # (Auto) Baso # (Auto) Sodium Potassium Chloride Carbon Dioxide Anion Gap BUN Creatinine Est GFR ( Amer) Est GFR (Non-Af Amer) POC Glucose (mg/dL) 152 H 106 Random Glucose Serum Osmolality Calcium Phosphorus Magnesium Total Bilirubin GGT AST ALT Alkaline Phosphatase Ammonia Total Protein Albumin Globulin Albumin/Globulin Ratio Urine Color Y[place] Urine Clarity Slighty-cloudy Urine pH 5.0 Ur Specific [place] 1.033 H Urine Protein 30 Urine Glucose (UA) 50 Urine Ketones Negative Urine Blood Negative Urine Nitrate Negative Urine Bilirubin Negative Urine Urobilinogen 0.2-1.0 Ur Leukocyte Esterase Neg Urine RBC (Auto) 3 Urine Microscopic WBC 2 Hyaline Casts 3-5 H 01/25/19 01/25/19 01/25/19 00:38 05:25 05:25 WBC 6.8 RBC 2.58 L Hgb 9.9 L Hct 29.5 L MCV 114.3 H MCH 38.3 H MCHC 33.5 RDW 16.8 H Plt Count 111 L D MPV 11.0 Neut % (Auto) 74.5 Lymph % (Auto) 11.7 L [place] % (Auto) 9.6 Eos % (Auto) 3.5 Baso % (Auto) 0.7 Neut # (Auto) 5.1 Lymph # (Auto) 0.8 L [place] # (Auto) 0.7 Eos # (Auto) 0.2 Baso # (Auto) 0.0 Sodium 147 Potassium 3.6 Chloride 122 H Carbon Dioxide 26 Anion Gap 3 L BUN 36 H Creatinine 0.8 Est GFR ( Amer) > 60 Est GFR (Non-Af Amer) > 60 POC Glucose (mg/dL) 122 H Random Glucose 104 Serum Osmolality Calcium 8.6 Phosphorus 2.9 Magnesium 2.3 Total Bilirubin 1.7 H GGT AST 95 H D ALT 62 Alkaline Phosphatase 292 H Ammonia Total Protein 5.6 L Albumin 1.8 L Globulin 3.8 Albumin/Globulin Ratio 0.5 L Urine Color Urine Clarity Urine pH Ur Specific [place] Urine Protein Urine Glucose (UA) Urine Ketones Urine Blood Urine Nitrate Urine Bilirubin Urine Urobilinogen Ur Leukocyte Esterase Urine RBC (Auto) Urine Microscopic WBC Hyaline Casts 01/25/19 01/25/19 01/25/19 05:25 05:25 07:04 WBC RBC Hgb Hct MCV MCH MCHC RDW Plt Count MPV Neut % (Auto) Lymph % (Auto) [place] % (Auto) Eos % (Auto) Baso % (Auto) Neut # (Auto) Lymph # (Auto) [place] # (Auto) Eos # (Auto) Baso # (Auto) Sodium Potassium Chloride Carbon Dioxide Anion Gap BUN Creatinine Est GFR ( Amer) Est GFR (Non-Af Amer) POC Glucose (mg/dL) 98 Random Glucose Serum Osmolality 328 H Calcium Phosphorus Magnesium Total Bilirubin GGT AST ALT Alkaline Phosphatase Ammonia 32 D Total Protein Albumin Globulin Albumin/Globulin Ratio Urine Color Urine Clarity Urine pH Ur Specific [place] Urine Protein Urine Glucose (UA) Urine Ketones Urine Blood Urine Nitrate Urine Bilirubin Urine Urobilinogen Ur Leukocyte Esterase Urine RBC (Auto) Urine Microscopic WBC Hyaline Casts 01/25/19 01/25/19 01/25/19 08:15 12:02 16:22 WBC RBC Hgb Hct MCV MCH MCHC RDW Plt Count MPV Neut % (Auto) Lymph % (Auto) [place] % (Auto) Eos % (Auto) Baso % (Auto) Neut # (Auto) Lymph # (Auto) [place] # (Auto) Eos # (Auto) Baso # (Auto) Sodium Potassium Chloride Carbon Dioxide Anion Gap BUN Creatinine Est GFR ( Amer) Est GFR (Non-Af Amer) POC Glucose (mg/dL) 75 89 115 H Random Glucose Serum Osmolality Calcium Phosphorus Magnesium Total Bilirubin GGT AST ALT Alkaline Phosphatase Ammonia Total Protein Albumin Globulin Albumin/Globulin Ratio Urine Color Urine Clarity Urine pH Ur Specific [place] Urine Protein Urine Glucose (UA) Urine Ketones Urine Blood Urine Nitrate Urine Bilirubin Urine Urobilinogen Ur Leukocyte Esterase Urine RBC (Auto) Urine Microscopic WBC Hyaline Casts 01/25/19 01/26/19 01/26/19 21:31 01:13 05:00 WBC 5.0 RBC 2.38 L Hgb 9.2 L Hct 27.7 L MCV 116.3 H D MCH 38.6 H MCHC 33.2 RDW 17.0 H Plt Count 83 L D MPV 11.3 Neut % (Auto) 71.0 Lymph % (Auto) 12.4 L [place] % (Auto) 11.0 H Eos % (Auto) 4.8 H Baso % (Auto) 0.8 Neut # (Auto) 3.6 Lymph # (Auto) 0.6 L [place] # (Auto) 0.6 Eos # (Auto) 0.2 Baso # (Auto) 0.0 Sodium Potassium Chloride Carbon Dioxide Anion Gap BUN Creatinine Est GFR ( Amer) Est GFR (Non-Af Amer) POC Glucose (mg/dL) 173 H 170 H Random Glucose Serum Osmolality Calcium Phosphorus Magnesium Total Bilirubin GGT AST ALT Alkaline Phosphatase Ammonia Total Protein Albumin Globulin Albumin/Globulin Ratio Urine Color Urine Clarity Urine pH Ur Specific [place] Urine Protein Urine Glucose (UA) Urine Ketones Urine Blood Urine Nitrate Urine Bilirubin Urine Urobilinogen Ur Leukocyte Esterase Urine RBC (Auto) Urine Microscopic WBC Hyaline Casts 01/26/19 01/26/19 01/26/19 05:00 05:00 06:07 WBC RBC Hgb Hct MCV MCH MCHC RDW Plt Count MPV Neut % (Auto) Lymph % (Auto) [place] % (Auto) Eos % (Auto) Baso % (Auto) Neut # (Auto) Lymph # (Auto) [place] # (Auto) Eos # (Auto) Baso # (Auto) Sodium 146 Potassium 3.7 Chloride 121 H Carbon Dioxide 26 Anion Gap 3 L BUN 33 H Creatinine 0.8 Est GFR ( Amer) > 60 Est GFR (Non-Af Amer) > 60 POC Glucose (mg/dL) 140 H Random Glucose 134 H Serum Osmolality 324 H Calcium 8.4 Phosphorus 3.1 Magnesium 2.2 Total Bilirubin 1.2 GGT AST 82 H ALT 50 Alkaline Phosphatase 328 H Ammonia Total Protein 5.0 L Albumin 1.6 L Globulin 3.4 Albumin/Globulin Ratio 0.5 L Urine Color Urine Clarity Urine pH Ur Specific [place] Urine Protein Urine Glucose (UA) Urine Ketones Urine Blood Urine Nitrate Urine Bilirubin Urine Urobilinogen Ur Leukocyte Esterase Urine RBC (Auto) Urine Microscopic WBC Hyaline Casts Microbiology 01/18/19 17:39 Blood-Venous Blood Culture - Final NO GROWTH AFTER 5 DAYS 01/18/19 17:39 Blood-Venous Gram Stain - Final TEST NOT PERFORMED 01/18/19 12:20 Blood-Venous Blood Culture - Final NO GROWTH AFTER 5 DAYS 01/18/19 12:20 Blood-Venous Gram Stain - Final TEST NOT PERFORMED 01/10/19 21:25 Trachasp Gram Stain - Final 01/10/19 21:25 Trachasp Sputum Culture - Final Klebsiella Oxytoca Pseudomonas Aeruginosa 01/15/19 18:40 Blood Blood Culture - Final NO GROWTH AFTER 5 DAYS 01/15/19 18:40 Blood Gram Stain - Final TEST NOT PERFORMED 01/15/19 17:45 Blood Blood Culture - Final NO GROWTH AFTER 5 DAYS 01/15/19 17:45 Blood Gram Stain - Final TEST NOT PERFORMED 01/17/19 18:20 Sputum Gram Stain - Final 01/17/19 18:20 Sputum Sputum Culture - Final Pseudomonas Aeruginosa 01/15/19 07:16 Urine,Howe Urine Culture - Final Beta Hemolytic Strep Group B 01/07/19 18:08 Urine,Howe Urine Culture - Final Beta Hemolytic Strep Group B 01/06/19 10:41 Naris MRSA Culture (Admit) - Final MRSA NOT DETECTED Assessment and Plan (1) Hospital-acquired bacterial pneumonia Status: Acute (2) Acute respiratory failure Status: Resolved - Assessment and Plan (Free Text) Assessment: A/P- 69 year old male with h/o ETOH abuse, liver cirrhosis, liver cancer undergoing chemo who was admitted with change in MS . s/p extubation 7 days ago. clinically much improved. afebrile past 7 days. blood cx- neg x 4 Et tube cx- KLebsilele and pseudomonas not ESBL sputum cx- pseudomonas cx Plan- continue with Meropnem 1 gram IV q8 hours.day #9. advise 1 more day of IV meropenem for both pseudomonas and klebsiella pneumonia treatment . monitor aspiration precautions. all labs and imaging reviewed. Critical care time spent 30 minutes.
--- NOTE | 2019-01-26 12:17 | CP.CCUPN ---
CCU Subjective - Physician Review Subjective (Free Text): Awake, alert and appropriately responsive, no distress, still has acceptable diarrheal BMs on Lactulose and Rifaximin, NGT in for tube feeds, still has not passed Swallow evals for safe PO feeding. Temps mostly 98; SBPs 90-100s, HR 60s. Approx 3.8 liter positive fluid balance. On room air at times and SPO2 100%. ROS: No other pertinent negs or positive on 10+ system review Other PMSFH: All other Nursing and physician documentation reviewed to date; no new pertinent info noted relevant to current medical problems. EXAM- HEENT: very slight icterus, pupils equal, 3 mm and reactive, no gaze preference, no nystagmus NECK: no visible JVD, supple, carotids equal upstroke bilat/no bruits CHEST: decreased BS bases, no wheezes audible HEART: regular, distant, S1S2, no murmur audible, no rubs. ABD: soft, no distention, no focal tenderness, BS hypoactive EXT: ++ edema; no calf tenderness or palpable cords, distal pulses intact and symmetrical NEURO: No focal motor deficits, tone decreased. SKIN: no rashes LABS: WBC= 5.0 HGB= 9.2 PLTs = 83K Na= 146 K= 3.7 Cl= 121 HCO3= 26 BUN/Cr= 33/0.8 BS= 134 Ammonia = 32 4/12 CXR: (my interp)- increase in R sided interstitial changes worse than L, R horizontal fissure prominent. IMPRESSION / MAJOR PROBLEMS NOW: 1. s/p Acute hypoxemic Resp Failure on MV, 2 metabolic encephalopathy 2. Hyperammonemia- resolved 3. Azotemia / Dehydration, doubt HRS, ATN, NIRAJ, mild Hyperosmolar state evid ent 4. Uncontrolled DM II 5. Thrombocytopenia / Mild Coagulopathy 2 liver disease. 6. 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 PLAN: 1. Marked ++fluid balance with recent IVFs in response to treat and correct for Hyperosmolar state. Will hold IVFs today, add Aldactone, may give Lasix and Albumin prn. 2. Incentive Spirometry, continue to mobilize OOB as tolerated with Physical therapy. Check repeat CXR. 3. Ongoing insulin adjustments: may need to decrease dosages. 4. Meropenam coverge for P. aeruginosa and Klen. 5. Platelets remain low, but Hgb stable.
[2019-01-26] MEDS ORDERED: Albumin Human 5% (12.5 gm/250 ml) IV ONE (12:19)
[2019-01-26] MEDS ORDERED: Chlorhexidine Gluconate 1 APPL/PKT TP ONE (20:25)
[2019-01-26] MEDS: Insulin Detemir 100 Units/ml Inj SC SCH (21:22)
[2019-01-27] MEDS: Meropenem 1 GM in Sodium Chloride 0.9% 100 ML IVPB SCH ×3 (01:20→16:49)
[2019-01-27] MEDS: Insulin Lispro (humaLOG) 100 Units/ml Inj SC SCH ×6 (01:21→21:24)
[2019-01-27 05:13] LABS: MEAN CORPUSCULAR HEMOGLOBIN 38.8 pg (27.0-31.0); MEAN CORPUSCULAR HGB CONC 33.8 g/dL (33.0-37.0); RBC 2.32 Mil/uL (4.40-5.90); RED CELL DISTRIBUTION WIDTH 16.7 % (11.5-14.5)
[2019-01-27 05:27] LABS: ALB/GLOB RATIO 0.6 (1.0-2.1); ALBUMIN 1.9 g/dL (3.5-5.0); ALT/SGPT 51 U/L (21-72); AST/SGOT 79 U/L (17-59); BLOOD UREA NITROGEN 29 mg/dl (9-20); CALCIUM 8.6 mg/dL (8.4-10.2); GFR NON-AFRICAN AMERICAN > 60
[2019-01-27] MEDS: Levothyroxine 50 MCG TAB PO SCH (05:43)
[2019-01-27 05:49] LABS: MEAN CELL VOLUME 114.7 fl (80.0-94.0)
[2019-01-27] MEDS: Albuterol 0.083% Inhal Sol (2.5 mg/3 mL) UD INH SCH ×2 (07:42→20:02)
[2019-01-27] MEDS: Acetylcysteine 20% Inhal Soln (4ml) INH SCH ×2 (07:43→20:02)
[2019-01-27] MEDS: Pantoprazole 40 mg Susp UD NG SCH (08:24)
--- NOTE | 2019-01-27 08:48 | CP.CCUPN ---
CCU Subjective - Physician Review Subjective (Free Text): Awake, alert and remains appropriately responsive, no distress, still has acceptable diarrheal BMs on Lactulose and Rifaximin, NGT in for tube feeds, still has not passed Swallow evals for safe PO feeding. Howe remains out. Temps mostly 98; SBPs 110s, HR 70s. Approx 3.0 liter positive fluid balance. On RA oxygen and SPO2 100%. ROS: No other pertinent negs or positive on 10+ system review Other PMSFH: All other Nursing and physician documentation reviewed to date; no new pertinent info noted relevant to current medical problems. EXAM- HEENT: very slight icterus, pupils equal, 3 mm and reactive, no gaze preference, no nystagmus NECK: no visible JVD, supple, carotids equal upstroke bilat/no bruits CHEST: decreased BS bases, no wheezes audible HEART: regular, distant, S1S2, no murmur audible, no rubs. ABD: soft, no distention, no focal tenderness, BS hypoactive EXT: ++ edema; no calf tenderness or palpable cords, distal pulses intact and symmetrical NEURO: No focal motor deficits, tone decreased. SKIN: no rashes LABS: WBC= 5.0 HGB= 9.0 PLTs = 79K Na= 146 K= 3.7 Cl= 121 HCO3= 26 BUN/Cr= 33/0.8 BS= 134 4/12 CXR: (my interp)- increase in R sided interstitial changes worse than L, R horizontal fissure prominent. IMPRESSION / MAJOR PROBLEMS NOW: 1. s/p Acute hypoxemic Resp Failure on MV, 2 metabolic encephalopathy 2. Hyperammonemia- resolved 3. Azotemia / Dehydration, doubt HRS, ATN, NIRAJ, mild Hyperosmolar state mars dent 4. Uncontrolled DM II 5. Thrombocytopenia / Mild Coagulopathy 2 liver disease. 6. 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 PLAN: 1. Marked ++fluid balance with recent IVFs in response to treat and correct for Hyperosmolar state. IVFs stopped, maintenance hydration with tube feeds noted, Aldactone started, may give Lasix and Albumin prn. 2. Incentive Spirometry, continue to mobilize OOB as tolerated with Physical therapy. Check repeat CXR. 3. Ongoing insulin adjustments: may need to decrease dosages. 4. Meropenam coverge for P. aeruginosa and Kleb. 5. Platelets remain low, but Hgb stable. 6. Stable for transfer to regular med/surg bed.
--- NOTE | 2019-01-27 10:49 | CP.PCM.PN ---
Subjective - Date & Time of Evaluation Date of Evaluation: 01/24/19 Objective - Vital Signs/Intake and Output Vital Signs (last 24 hours): Temp Pulse Resp BP Pulse Ox 97.3 F L 76 20 119/66 97 01/27/19 08:00 01/27/19 08:21 01/27/19 08:00 01/27/19 08:21 01/27/19 08:00 Intake and Output: 01/27/19 01/27/19 06:59 18:59 Intake Total 1500 Output Total 651 Balance 849 - Medications Medications: Current Medications Acetaminophen (Tylenol 650mg/20.3ml Solution Ud) 650 mg NG Q6 PRN PRN Reason: for temp>100.4 deg f Acetylcysteine (Acetylcysteine 20%) 2 ml INH RBID JOANNA Last Admin: 01/27/19 07:43 Dose: 2 ml Albuterol Sulfate (Albuterol 0.083% Inhal Mana (2.5 Mg/3 Ml) Ud) 2.5 mg INH RBID JOANNA Last Admin: 01/27/19 07:42 Dose: 2.5 mg Carvedilol (Coreg) 6.25 mg NG Q12 JOANNA Last Admin: 01/27/19 08:21 Dose: 6.25 mg Cilostazol (Pletal) 50 mg PO Q12 JOANNA Last Admin: 01/07/19 10:22 Dose: Not Given Dextrose (Dextrose 50% Inj) 0 ml IV STAT PRN; Protocol PRN Reason: Hypoglycemia Protocol Last Admin: 01/24/19 04:36 Dose: 50 ml Dextrose (Glutose 15) 0 gm PO ONCE PRN; Protocol PRN Reason: Hypoglycemia Protocol Folic Acid (Folic Acid) 1 mg GT DAILY [facility] Last Admin: 01/27/19 08:23 Dose: 1 mg Glucagon (Glucagen Diagnostic Kit) 0 mg IM STAT PRN; Protocol PRN Reason: Hypoglycemia Protocol Meropenem 1 gm/ Sodium (Chloride) 100 mls @ 100 mls/hr IVPB Q8 JOANNA; Protocol Last Admin: 01/27/19 08:23 Dose: 100 mls/hr Insulin Detemir (Levemir) 18 units SC HS JOANNA Last Admin: 01/26/19 21:22 Dose: 18 units Insulin Human Lispro (Humalog) 0 units SC Q4 JOANNA; Protocol Last Admin: 01/27/19 08:47 Dose: Not Given Lactulose (Enulose) 20 gm GT Q4H [facility] Last Admin: 01/27/19 09:45 Dose: 20 gm Levothyroxine Sodium (Synthroid) 50 mcg PO DAILY@0630 [facility] Last Admin: 01/27/19 05:43 Dose: 50 mcg Pantoprazole Sodium (Protonix Susp) 40 mg NG DAILY [facility] Last Admin: 01/27/19 08:24 Dose: 40 mg Spironolactone (Aldactone) 50 mg NG DAILY [facility] Last Admin: 01/27/19 08:21 Dose: 50 mg Tamsulosin HCl (Flomax) 0.4 mg NG DAILY [facility] Last Admin: 01/27/19 08:22 Dose: 0.4 mg Thiamine HCl (Vitamin B1 Tab) 100 mg GT DAILY [facility] Last Admin: 01/27/19 08:24 Dose: 100 mg - Labs Labs: 01/27/19 04:37 01/27/19 04:37 PT 16.1 Seconds (9.8-13.1) H 01/23/19 10:30 INR 1.4 01/23/19 10:30 APTT 31.5 Seconds (25.6-37.1) 01/23/19 10:30 Assessment and Plan (1) Acute respiratory failure Status: Resolved (2) Altered mental status Status: Resolved (3) Alcoholic cirrhosis of liver Status: Chronic (4) Hepatic encephalopathy Status: Resolved (5) DM type 2 (diabetes mellitus, type 2) Status: Acute
--- NOTE | 2019-01-27 10:50 | CP.PCM.PN ---
Subjective - Date & Time of Evaluation Date of Evaluation: 01/26/19 Objective - Vital Signs/Intake and Output Vital Signs (last 24 hours): Temp Pulse Resp BP Pulse Ox 97.3 F L 76 20 119/66 97 01/27/19 08:00 01/27/19 08:21 01/27/19 08:00 01/27/19 08:21 01/27/19 08:00 Intake and Output: 01/27/19 01/27/19 06:59 18:59 Intake Total 1500 Output Total 651 Balance 849 - Medications Medications: Current Medications Acetaminophen (Tylenol 650mg/20.3ml Solution Ud) 650 mg NG Q6 PRN PRN Reason: for temp>100.4 deg f Acetylcysteine (Acetylcysteine 20%) 2 ml INH RBID JAONNA Last Admin: 01/27/19 07:43 Dose: 2 ml Albuterol Sulfate (Albuterol 0.083% Inhal Mana (2.5 Mg/3 Ml) Ud) 2.5 mg INH RBID JOANNA Last Admin: 01/27/19 07:42 Dose: 2.5 mg Carvedilol (Coreg) 6.25 mg NG Q12 JOANNA Last Admin: 01/27/19 08:21 Dose: 6.25 mg Cilostazol (Pletal) 50 mg PO Q12 JOANNA Last Admin: 01/07/19 10:22 Dose: Not Given Dextrose (Dextrose 50% Inj) 0 ml IV STAT PRN; Protocol PRN Reason: Hypoglycemia Protocol Last Admin: 01/24/19 04:36 Dose: 50 ml Dextrose (Glutose 15) 0 gm PO ONCE PRN; Protocol PRN Reason: Hypoglycemia Protocol Folic Acid (Folic Acid) 1 mg GT DAILY [facility] Last Admin: 01/27/19 08:23 Dose: 1 mg Glucagon (Glucagen Diagnostic Kit) 0 mg IM STAT PRN; Protocol PRN Reason: Hypoglycemia Protocol Meropenem 1 gm/ Sodium (Chloride) 100 mls @ 100 mls/hr IVPB Q8 JOANNA; Protocol Last Admin: 01/27/19 08:23 Dose: 100 mls/hr Insulin Detemir (Levemir) 18 units SC HS JOANNA Last Admin: 01/26/19 21:22 Dose: 18 units Insulin Human Lispro (Humalog) 0 units SC Q4 JOANNA; Protocol Last Admin: 01/27/19 08:47 Dose: Not Given Lactulose (Enulose) 20 gm GT Q4H [facility] Last Admin: 01/27/19 09:45 Dose: 20 gm Levothyroxine Sodium (Synthroid) 50 mcg PO DAILY@0630 [facility] Last Admin: 01/27/19 05:43 Dose: 50 mcg Pantoprazole Sodium (Protonix Susp) 40 mg NG DAILY [facility] Last Admin: 01/27/19 08:24 Dose: 40 mg Spironolactone (Aldactone) 50 mg NG DAILY [facility] Last Admin: 01/27/19 08:21 Dose: 50 mg Tamsulosin HCl (Flomax) 0.4 mg NG DAILY [facility] Last Admin: 01/27/19 08:22 Dose: 0.4 mg Thiamine HCl (Vitamin B1 Tab) 100 mg GT DAILY [facility] Last Admin: 01/27/19 08:24 Dose: 100 mg - Labs Labs: 01/27/19 04:37 01/27/19 04:37 PT 16.1 Seconds (9.8-13.1) H 01/23/19 10:30 INR 1.4 01/23/19 10:30 APTT 31.5 Seconds (25.6-37.1) 01/23/19 10:30 Assessment and Plan (1) Acute respiratory failure Status: Resolved (2) Altered mental status Status: Resolved (3) Alcoholic cirrhosis of liver Status: Chronic (4) Hepatic encephalopathy Status: Resolved (5) DM type 2 (diabetes mellitus, type 2) Status: Acute
--- NOTE | 2019-01-27 10:50 | CP.PCM.PN ---
Subjective - Date & Time of Evaluation Date of Evaluation: 01/25/19 Objective - Vital Signs/Intake and Output Vital Signs (last 24 hours): Temp Pulse Resp BP Pulse Ox 97.3 F L 76 20 119/66 97 01/27/19 08:00 01/27/19 08:21 01/27/19 08:00 01/27/19 08:21 01/27/19 08:00 Intake and Output: 01/27/19 01/27/19 06:59 18:59 Intake Total 1500 Output Total 651 Balance 849 - Medications Medications: Current Medications Acetaminophen (Tylenol 650mg/20.3ml Solution Ud) 650 mg NG Q6 PRN PRN Reason: for temp>100.4 deg f Acetylcysteine (Acetylcysteine 20%) 2 ml INH RBID JOANNA Last Admin: 01/27/19 07:43 Dose: 2 ml Albuterol Sulfate (Albuterol 0.083% Inhal Mana (2.5 Mg/3 Ml) Ud) 2.5 mg INH RBID JOANNA Last Admin: 01/27/19 07:42 Dose: 2.5 mg Carvedilol (Coreg) 6.25 mg NG Q12 JOANNA Last Admin: 01/27/19 08:21 Dose: 6.25 mg Cilostazol (Pletal) 50 mg PO Q12 JOANNA Last Admin: 01/07/19 10:22 Dose: Not Given Dextrose (Dextrose 50% Inj) 0 ml IV STAT PRN; Protocol PRN Reason: Hypoglycemia Protocol Last Admin: 01/24/19 04:36 Dose: 50 ml Dextrose (Glutose 15) 0 gm PO ONCE PRN; Protocol PRN Reason: Hypoglycemia Protocol Folic Acid (Folic Acid) 1 mg GT DAILY [facility] Last Admin: 01/27/19 08:23 Dose: 1 mg Glucagon (Glucagen Diagnostic Kit) 0 mg IM STAT PRN; Protocol PRN Reason: Hypoglycemia Protocol Meropenem 1 gm/ Sodium (Chloride) 100 mls @ 100 mls/hr IVPB Q8 JOANNA; Protocol Last Admin: 01/27/19 08:23 Dose: 100 mls/hr Insulin Detemir (Levemir) 18 units SC HS JOANNA Last Admin: 01/26/19 21:22 Dose: 18 units Insulin Human Lispro (Humalog) 0 units SC Q4 JOANNA; Protocol Last Admin: 01/27/19 08:47 Dose: Not Given Lactulose (Enulose) 20 gm GT Q4H [facility] Last Admin: 01/27/19 09:45 Dose: 20 gm Levothyroxine Sodium (Synthroid) 50 mcg PO DAILY@0630 [facility] Last Admin: 01/27/19 05:43 Dose: 50 mcg Pantoprazole Sodium (Protonix Susp) 40 mg NG DAILY [facility] Last Admin: 01/27/19 08:24 Dose: 40 mg Spironolactone (Aldactone) 50 mg NG DAILY [facility] Last Admin: 01/27/19 08:21 Dose: 50 mg Tamsulosin HCl (Flomax) 0.4 mg NG DAILY [facility] Last Admin: 01/27/19 08:22 Dose: 0.4 mg Thiamine HCl (Vitamin B1 Tab) 100 mg GT DAILY [facility] Last Admin: 01/27/19 08:24 Dose: 100 mg - Labs Labs: 01/27/19 04:37 01/27/19 04:37 PT 16.1 Seconds (9.8-13.1) H 01/23/19 10:30 INR 1.4 01/23/19 10:30 APTT 31.5 Seconds (25.6-37.1) 01/23/19 10:30 Assessment and Plan (1) Acute respiratory failure Status: Resolved (2) Altered mental status Status: Resolved (3) Alcoholic cirrhosis of liver Status: Chronic (4) Hepatic encephalopathy Status: Resolved (5) DM type 2 (diabetes mellitus, type 2) Status: Acute
[2019-01-27] MEDS: DiphenhydrAMINE 50 mg/ml Inj IVP PRN ×2 (15:07→20:57)
--- NOTE | 2019-01-27 21:10 | CP.PCM.PN ---
Subjective - Date & Time of Evaluation Date of Evaluation: 01/26/19 Time of Evaluation: 17:00 - Subjective Subjective: Appears comfortable. Objective - Vital Signs/Intake and Output Vital Signs (last 24 hours): Temp Pulse Resp BP Pulse Ox 98.6 F 79 25 H 93/63 L 100 01/27/19 16:00 01/27/19 20:13 01/27/19 18:00 01/27/19 20:13 01/27/19 18:00 Intake and Output: 01/27/19 01/28/19 18:59 06:59 Intake Total 2000 Output Total 300 Balance 1700 - Medications Medications: Current Medications Acetaminophen (Tylenol 650mg/20.3ml Solution Ud) 650 mg NG Q6 PRN PRN Reason: for temp>100.4 deg f Acetylcysteine (Acetylcysteine 20%) 2 ml INH RBID JOANNA Last Admin: 01/27/19 20:02 Dose: Not Given Albuterol Sulfate (Albuterol 0.083% Inhal Mana (2.5 Mg/3 Ml) Ud) 2.5 mg INH RBID JOANNA Last Admin: 01/27/19 20:02 Dose: Not Given Carvedilol (Coreg) 6.25 mg NG Q12 JOANNA Last Admin: 01/27/19 20:13 Dose: Not Given Cilostazol (Pletal) 50 mg PO Q12 JOANNA Last Admin: 01/07/19 10:22 Dose: Not Given Dextrose (Dextrose 50% Inj) 0 ml IV STAT PRN; Protocol PRN Reason: Hypoglycemia Protocol Last Admin: 01/24/19 04:36 Dose: 50 ml Dextrose (Glutose 15) 0 gm PO ONCE PRN; Protocol PRN Reason: Hypoglycemia Protocol Diphenhydramine HCl (Benadryl) 50 mg IVP Q6 PRN PRN Reason: Agitation Last Admin: 01/27/19 20:57 Dose: 50 mg Folic Acid (Folic Acid) 1 mg GT DAILY [facility] Last Admin: 01/27/19 08:23 Dose: 1 mg Glucagon (Glucagen Diagnostic Kit) 0 mg IM STAT PRN; Protocol PRN Reason: Hypoglycemia Protocol Haloperidol Lactate (Haldol) 5 mg IVP Q6 PRN PRN Reason: Agitation Meropenem 1 gm/ Sodium (Chloride) 100 mls @ 100 mls/hr IVPB Q8 JOANNA; Protocol Last Admin: 01/27/19 16:49 Dose: 100 mls/hr Insulin Detemir (Levemir) 18 units SC HS [facility] Last Admin: 01/26/19 21:22 Dose: 18 units Insulin Human Lispro (Humalog) 0 units SC Q4 [facility]; Protocol Last Admin: 01/27/19 16:48 Dose: 1 units Lactulose (Enulose) 20 gm GT Q4H [facility] Last Admin: 01/27/19 18:31 Dose: 20 gm Levothyroxine Sodium (Synthroid) 50 mcg PO DAILY@0630 [facility] Last Admin: 01/27/19 05:43 Dose: 50 mcg Pantoprazole Sodium (Protonix Susp) 40 mg NG DAILY [facility] Last Admin: 01/27/19 08:24 Dose: 40 mg Spironolactone (Aldactone) 50 mg NG DAILY [facility] Last Admin: 01/27/19 08:21 Dose: 50 mg Tamsulosin HCl (Flomax) 0.4 mg NG DAILY [facility] Last Admin: 01/27/19 08:22 Dose: 0.4 mg Thiamine HCl (Vitamin B1 Tab) 100 mg GT DAILY [facility] Last Admin: 01/27/19 08:24 Dose: 100 mg - Labs Labs: 01/27/19 04:37 01/27/19 04:37 PT 16.1 Seconds (9.8-13.1) H 01/23/19 10:30 INR 1.4 01/23/19 10:30 APTT 31.5 Seconds (25.6-37.1) 01/23/19 10:30 - Head Exam Head Exam: ATRAUMATIC - Eye Exam Eye Exam: Normal appearance - ENT Exam ENT Exam: Mucous Membranes Dry - Respiratory Exam Respiratory Exam: NORMAL BREATHING PATTERN - Cardiovascular Exam Cardiovascular Exam: +S1, +S2 - GI/Abdominal Exam GI & Abdominal Exam: Normal Bowel Sounds Assessment and Plan (1) Thrombocytopenia Assessment & Plan: liver cirrhosis and splenic sequestration mild Status: Acute (2) Coagulopathy Assessment & Plan: liver disease nutritional component vit k and FFP PRN Status: Acute (3) Liver mass Assessment & Plan: HCC outpatient f/u with primary field laborer Status: Acute
--- NOTE | 2019-01-27 21:11 | CP.PCM.PN ---
Subjective - Date & Time of Evaluation Date of Evaluation: 01/27/19 Time of Evaluation: 19:00 - Subjective Subjective: Appears comfortable Objective - Vital Signs/Intake and Output Vital Signs (last 24 hours): Temp Pulse Resp BP Pulse Ox 98.6 F 79 25 H 93/63 L 100 01/27/19 16:00 01/27/19 20:13 01/27/19 18:00 01/27/19 20:13 01/27/19 18:00 Intake and Output: 01/27/19 01/28/19 18:59 06:59 Intake Total 2000 Output Total 300 Balance 1700 - Medications Medications: Current Medications Acetaminophen (Tylenol 650mg/20.3ml Solution Ud) 650 mg NG Q6 PRN PRN Reason: for temp>100.4 deg f Acetylcysteine (Acetylcysteine 20%) 2 ml INH RBID JOANNA Last Admin: 01/27/19 20:02 Dose: Not Given Albuterol Sulfate (Albuterol 0.083% Inhal Mana (2.5 Mg/3 Ml) Ud) 2.5 mg INH RBID JOANNA Last Admin: 01/27/19 20:02 Dose: Not Given Carvedilol (Coreg) 6.25 mg NG Q12 JOANNA Last Admin: 01/27/19 20:13 Dose: Not Given Cilostazol (Pletal) 50 mg PO Q12 JOANNA Last Admin: 01/07/19 10:22 Dose: Not Given Dextrose (Dextrose 50% Inj) 0 ml IV STAT PRN; Protocol PRN Reason: Hypoglycemia Protocol Last Admin: 01/24/19 04:36 Dose: 50 ml Dextrose (Glutose 15) 0 gm PO ONCE PRN; Protocol PRN Reason: Hypoglycemia Protocol Diphenhydramine HCl (Benadryl) 50 mg IVP Q6 PRN PRN Reason: Agitation Last Admin: 01/27/19 20:57 Dose: 50 mg Folic Acid (Folic Acid) 1 mg GT DAILY [facility] Last Admin: 01/27/19 08:23 Dose: 1 mg Glucagon (Glucagen Diagnostic Kit) 0 mg IM STAT PRN; Protocol PRN Reason: Hypoglycemia Protocol Haloperidol Lactate (Haldol) 5 mg IVP Q6 PRN PRN Reason: Agitation Meropenem 1 gm/ Sodium (Chloride) 100 mls @ 100 mls/hr IVPB Q8 JOANNA; Protocol Last Admin: 01/27/19 16:49 Dose: 100 mls/hr Insulin Detemir (Levemir) 18 units SC HS [facility] Last Admin: 01/26/19 21:22 Dose: 18 units Insulin Human Lispro (Humalog) 0 units SC Q4 [facility]; Protocol Last Admin: 01/27/19 16:48 Dose: 1 units Lactulose (Enulose) 20 gm GT Q4H [facility] Last Admin: 01/27/19 18:31 Dose: 20 gm Levothyroxine Sodium (Synthroid) 50 mcg PO DAILY@0630 [facility] Last Admin: 01/27/19 05:43 Dose: 50 mcg Pantoprazole Sodium (Protonix Susp) 40 mg NG DAILY [facility] Last Admin: 01/27/19 08:24 Dose: 40 mg Spironolactone (Aldactone) 50 mg NG DAILY [facility] Last Admin: 01/27/19 08:21 Dose: 50 mg Tamsulosin HCl (Flomax) 0.4 mg NG DAILY [facility] Last Admin: 01/27/19 08:22 Dose: 0.4 mg Thiamine HCl (Vitamin B1 Tab) 100 mg GT DAILY [facility] Last Admin: 01/27/19 08:24 Dose: 100 mg - Labs Labs: 01/27/19 04:37 01/27/19 04:37 PT 16.1 Seconds (9.8-13.1) H 01/23/19 10:30 INR 1.4 01/23/19 10:30 APTT 31.5 Seconds (25.6-37.1) 01/23/19 10:30 - Head Exam Head Exam: ATRAUMATIC - Eye Exam Eye Exam: Normal appearance - ENT Exam ENT Exam: Mucous Membranes Dry - Respiratory Exam Respiratory Exam: NORMAL BREATHING PATTERN - Cardiovascular Exam Cardiovascular Exam: +S1, +S2 - GI/Abdominal Exam GI & Abdominal Exam: Normal Bowel Sounds Assessment and Plan (1) Thrombocytopenia Assessment & Plan: liver cirrhosis and splenic sequestration mild Status: Acute (2) Coagulopathy Assessment & Plan: liver disease nutritional component vit k and FFP PRN Status: Acute (3) Liver mass Assessment & Plan: HCC outpatient f/u with primary thoracic surgeon Status: Acute
[2019-01-27] MEDS: Insulin Detemir 100 Units/ml Inj SC SCH (21:23)
[2019-01-28] MEDS: Insulin Lispro (humaLOG) 100 Units/ml Inj SC SCH ×6 (01:41→21:29)
[2019-01-28] MEDS: Meropenem 1 GM in Sodium Chloride 0.9% 100 ML IVPB SCH ×2 (01:49→08:20)
[2019-01-28] MEDS: DiphenhydrAMINE 50 mg/ml Inj IVP PRN (02:53)
[2019-01-28 05:52] LABS: BASO % 0.7 % (0.0-2.0); EOS # 0.2 K/uL (0.0-0.7); EOS % 3.5 % (0.0-4.0); HEMOGLOBIN 9.5 g/dL (12.0-18.0); LYMPH # 0.9 K/uL (1.0-4.3); LYMPH % 16.6 % (20.0-40.0); MEAN CELL VOLUME 114.1 fl (80.0-94.0); MEAN CORPUSCULAR HEMOGLOBIN 38.4 pg (27.0-31.0); MEAN CORPUSCULAR HGB CONC 33.7 g/dL (33.0-37.0); MEAN PLATELET VOLUME 11.6 fl (7.2-11.7); MONO # 0.6 K/uL (0.0-0.8); NEUT # 3.7 K/uL (1.8-7.0); NEUT % 68.2 % (50.0-75.0); NRBC % 0.1 % (0.0-0.0); RBC 2.47 Mil/uL (4.40-5.90); RED CELL DISTRIBUTION WIDTH 16.6 % (11.5-14.5); WHITE BLOOD COUNT 5.4 K/uL (4.8-10.8)
[2019-01-28 06:28] LABS: ALB/GLOB RATIO 0.5 (1.0-2.1); ALBUMIN 1.9 g/dL (3.5-5.0); ALT/SGPT 54 U/L (21-72); AST/SGOT 88 U/L (17-59); BLOOD UREA NITROGEN 23 mg/dl (9-20); CALCIUM 8.5 mg/dL (8.4-10.2); GFR NON-AFRICAN AMERICAN > 60
[2019-01-28] MEDS: Levothyroxine 50 MCG TAB PO SCH (06:50)
[2019-01-28] MEDS: Acetylcysteine 20% Inhal Soln (4ml) INH SCH ×2 (08:00→20:45)
[2019-01-28] MEDS: Albuterol 0.083% Inhal Sol (2.5 mg/3 mL) UD INH SCH ×2 (08:00→20:45)
[2019-01-28] MEDS: Pantoprazole 40 mg Susp UD NG SCH (08:15)
--- NOTE | 2019-01-28 09:44 | CP.PCM.PN ---
Subjective - Date & Time of Evaluation Date of Evaluation: 01/28/19 Time of Evaluation: 09:44 - Subjective Subjective: Id Note- Patient seen and examined today in ICU. pt. agitated today and as per his family wants to go home. as per nurse he is confused today. Objective - Vital Signs/Intake and Output Vital Signs (last 24 hours): Temp Pulse Resp BP Pulse Ox 98 F 87 26 H 137/78 99 01/28/19 08:00 01/28/19 08:14 01/28/19 08:00 01/28/19 08:14 01/28/19 08:00 Intake and Output: 01/28/19 01/28/19 06:59 18:59 Intake Total 1600 100 Balance 1600 100 - Medications Medications: Current Medications Acetaminophen (Tylenol 650mg/20.3ml Solution Ud) 650 mg NG Q6 PRN PRN Reason: for temp>100.4 deg f Acetylcysteine (Acetylcysteine 20%) 2 ml INH RBID [facility] Last Admin: 01/28/19 08:00 Dose: 2 ml Albuterol Sulfate (Albuterol 0.083% Inhal Mana (2.5 Mg/3 Ml) Ud) 2.5 mg INH RBID [facility] Last Admin: 01/28/19 08:00 Dose: 2.5 mg Carvedilol (Coreg) 6.25 mg NG Q12 [facility] Last Admin: 01/28/19 08:14 Dose: 6.25 mg Cilostazol (Pletal) 50 mg PO Q12 [facility] Last Admin: 01/07/19 10:22 Dose: Not Given Dextrose (Dextrose 50% Inj) 0 ml IV STAT PRN; Protocol PRN Reason: Hypoglycemia Protocol Last Admin: 01/24/19 04:36 Dose: 50 ml Dextrose (Glutose 15) 0 gm PO ONCE PRN; Protocol PRN Reason: Hypoglycemia Protocol Diphenhydramine HCl (Benadryl) 50 mg IVP Q6 PRN PRN Reason: Agitation Last Admin: 01/28/19 02:53 Dose: 50 mg Folic Acid (Folic Acid) 1 mg GT DAILY [facility] Last Admin: 01/28/19 08:19 Dose: 1 mg Glucagon (Glucagen Diagnostic Kit) 0 mg IM STAT PRN; Protocol PRN Reason: Hypoglycemia Protocol Haloperidol Lactate (Haldol) 5 mg IVP Q6 PRN PRN Reason: Agitation Meropenem 1 gm/ Sodium (Chloride) 100 mls @ 100 mls/hr IVPB Q8 [facility]; Protocol Last Admin: 01/28/19 08:20 Dose: 100 mls/hr Insulin Detemir (Levemir) 18 units SC HS [facility] Last Admin: 01/27/19 21:23 Dose: 18 units Insulin Human Lispro (Humalog) 0 units SC Q4 [facility]; Protocol Last Admin: 01/28/19 05:54 Dose: Not Given Levothyroxine Sodium (Synthroid) 50 mcg PO DAILY@0630 [facility] Last Admin: 01/28/19 06:50 Dose: 50 mcg Pantoprazole Sodium (Protonix Susp) 40 mg NG DAILY [facility] Last Admin: 01/28/19 08:15 Dose: 40 mg Spironolactone (Aldactone) 50 mg NG DAILY [facility] Last Admin: 01/28/19 08:18 Dose: 50 mg Tamsulosin HCl (Flomax) 0.4 mg NG DAILY [facility] Last Admin: 01/28/19 08:15 Dose: 0.4 mg Thiamine HCl (Vitamin B1 Tab) 100 mg GT DAILY [facility] Last Admin: 01/28/19 08:14 Dose: 100 mg - Labs Labs: - Additional Findings Additional findings: - Constitutional Additional comments: awake but agitated today - Neck Exam Neck exam: Positive for: Full Rom - Respiratory Exam Additional comments: good aeration b/l no wheezing - Cardiovascular Exam Cardiovascular Exam: RRR, +S1, +S2 - GI/Abdominal Exam GI & Abdominal Exam: Normal Bowel Sounds, Soft Additional comments: NT, ND - Extremities Exam Extremities exam: Positive for: 2+ LE edema B/l - Neurological Exam Neurological exam: agitated and somewhat confused today Laboratory Results - last 72 hr 01/25/19 01/25/19 01/26/19 16:22 21:31 01:13 WBC RBC Hgb Hct MCV MCH MCHC RDW Plt Count MPV Neut % (Auto) Lymph % (Auto) [place] % (Auto) Eos % (Auto) Baso % (Auto) Neut # (Auto) Lymph # (Auto) [place] # (Auto) Eos # (Auto) Baso # (Auto) Sodium Potassium Chloride Carbon Dioxide Anion Gap BUN Creatinine Est GFR ( Amer) Est GFR (Non-Af Amer) POC Glucose (mg/dL) 115 H 173 H 170 H Random Glucose Serum Osmolality Calcium Phosphorus Magnesium Total Bilirubin AST ALT Alkaline Phosphatase Total Protein Albumin Globulin Albumin/Globulin Ratio 01/26/19 01/26/19 01/26/19 05:00 05:00 05:00 WBC 5.0 RBC 2.38 L Hgb 9.2 L Hct 27.7 L MCV 116.3 H D MCH 38.6 H MCHC 33.2 RDW 17.0 H Plt Count 83 L D MPV 11.3 Neut % (Auto) 71.0 Lymph % (Auto) 12.4 L Thur[place] % (Auto) 11.0 H Eos % (Auto) 4.8 H Baso % (Auto) 0.8 Neut # (Auto) 3.6 Lymph # (Auto) 0.6 L [place] # (Auto) 0.6 Eos # (Auto) 0.2 Baso # (Auto) 0.0 Sodium 146 Potassium 3.7 Chloride 121 H Carbon Dioxide 26 Anion Gap 3 L BUN 33 H Creatinine 0.8 Est GFR ( Amer) > 60 Est GFR (Non-Af Amer) > 60 POC Glucose (mg/dL) Random Glucose 134 H Serum Osmolality 324 H Calcium 8.4 Phosphorus 3.1 Magnesium 2.2 Total Bilirubin 1.2 AST 82 H ALT 50 Alkaline Phosphatase 328 H Total Protein 5.0 L Albumin 1.6 L Globulin 3.4 Albumin/Globulin Ratio 0.5 L 01/26/19 01/26/19 01/26/19 06:07 08:57 11:34 WBC RBC Hgb Hct MCV MCH MCHC RDW Plt Count MPV Neut % (Auto) Lymph % (Auto) [place] % (Auto) Eos % (Auto) Baso % (Auto) Neut # (Auto) Lymph # (Auto) [place] # (Auto) Eos # (Auto) Baso # (Auto) Sodium Potassium Chloride Carbon Dioxide Anion Gap BUN Creatinine Est GFR ( Amer) Est GFR (Non-Af Amer) POC Glucose (mg/dL) 140 H 130 H 107 Random Glucose Serum Osmolality Calcium Phosphorus Magnesium Total Bilirubin AST ALT Alkaline Phosphatase Total Protein Albumin Globulin Albumin/Globulin Ratio 01/26/19 01/26/19 01/27/19 17:03 20:59 00:54 WBC RBC Hgb Hct MCV MCH MCHC RDW Plt Count MPV Neut % (Auto) Lymph % (Auto) Thur[place] % (Auto) Eos % (Auto) Baso % (Auto) Neut # (Auto) Lymph # (Auto) [place] # (Auto) Eos # (Auto) Baso # (Auto) Sodium Potassium Chloride Carbon Dioxide Anion Gap BUN Creatinine Est GFR ( Amer) Est GFR (Non-Af Amer) POC Glucose (mg/dL) 90 120 H 165 H Random Glucose Serum Osmolality Calcium Phosphorus Magnesium Total Bilirubin AST ALT Alkaline Phosphatase Total Protein Albumin Globulin Albumin/Globulin Ratio 01/27/19 01/27/19 01/27/19 04:37 04:37 05:59 WBC 5.0 RBC 2.32 L Hgb 9.0 L Hct 26.6 L MCV 114.7 H MCH 38.8 H MCHC 33.8 RDW 16.7 H Plt Count 79 L MPV Neut % (Auto) Lymph % (Auto) [place] % (Auto) Eos % (Auto) Baso % (Auto) Neut # (Auto) Lymph # (Auto) [place] # (Auto) Eos # (Auto) Baso # (Auto) Sodium 146 Potassium 3.7 Chloride 121 H Carbon Dioxide 26 Anion Gap 3 L BUN 29 H Creatinine 0.7 L Est GFR ( Amer) > 60 Est GFR (Non-Af Amer) > 60 POC Glucose (mg/dL) 77 Random Glucose 71 L Serum Osmolality Calcium 8.6 Phosphorus Magnesium Total Bilirubin 1.6 H AST 79 H ALT 51 Alkaline Phosphatase 254 H D Total Protein 5.3 L Albumin 1.9 L Globulin 3.4 Albumin/Globulin Ratio 0.6 L 01/27/19 01/27/19 01/27/19 08:42 11:33 16:46 WBC RBC Hgb Hct MCV MCH MCHC RDW Plt Count MPV Neut % (Auto) Lymph % (Auto) Thur[place] % (Auto) Eos % (Auto) Baso % (Auto) Neut # (Auto) Lymph # (Auto) [place] # (Auto) Eos # (Auto) Baso # (Auto) Sodium Potassium Chloride Carbon Dioxide Anion Gap BUN Creatinine Est GFR ( Amer) Est GFR (Non-Af Amer) POC Glucose (mg/dL) 142 H 148 H 163 H Random Glucose Serum Osmolality Calcium Phosphorus Magnesium Total Bilirubin AST ALT Alkaline Phosphatase Total Protein Albumin Globulin Albumin/Globulin Ratio 01/27/19 01/28/19 01/28/19 21:23 01:31 05:31 WBC 5.4 RBC 2.47 L Hgb 9.5 L Hct 28.2 L MCV 114.1 H MCH 38.4 H MCHC 33.7 RDW 16.6 H Plt Count 81 L MPV 11.6 Neut % (Auto) 68.2 Lymph % (Auto) 16.6 L Thurston % (Auto) 11.0 H Eos % (Auto) 3.5 Baso % (Auto) 0.7 Neut # (Auto) 3.7 Lymph # (Auto) 0.9 L [place]ston # (Auto) 0.6 Eos # (Auto) 0.2 Baso # (Auto) 0.0 Sodium Potassium Chloride Carbon Dioxide Anion Gap BUN Creatinine Est GFR ( Amer) Est GFR (Non-Af Amer) POC Glucose (mg/dL) 182 H 154 H Random Glucose Serum Osmolality Calcium Phosphorus Magnesium Total Bilirubin AST ALT Alkaline Phosphatase Total Protein Albumin Globulin Albumin/Globulin Ratio 01/28/19 01/28/19 01/28/19 05:31 05:54 09:46 WBC RBC Hgb Hct MCV MCH MCHC RDW Plt Count MPV Neut % (Auto) Lymph % (Auto) [place] % (Auto) Eos % (Auto) Baso % (Auto) Neut # (Auto) Lymph # (Auto) [place] # (Auto) Eos # (Auto) Baso # (Auto) Sodium 145 Potassium 3.7 Chloride 119 H Carbon Dioxide 24 Anion Gap 6 L BUN 23 H Creatinine 0.7 L Est GFR ( Amer) > 60 Est GFR (Non-Af Amer) > 60 POC Glucose (mg/dL) 135 H 140 H Random Glucose 113 H Serum Osmolality Calcium 8.5 Phosphorus 2.3 L Magnesium 1.9 Total Bilirubin 1.8 H AST 88 H ALT 54 Alkaline Phosphatase 309 H D Total Protein 5.5 L Albumin 1.9 L Globulin 3.6 Albumin/Globulin Ratio 0.5 L Microbiology 01/18/19 17:39 Blood-Venous Blood Culture - Final NO GROWTH AFTER 5 DAYS 01/18/19 17:39 Blood-Venous Gram Stain - Final TEST NOT PERFORMED 01/18/19 12:20 Blood-Venous Blood Culture - Final NO GROWTH AFTER 5 DAYS 01/18/19 12:20 Blood-Venous Gram Stain - Final TEST NOT PERFORMED 01/10/19 21:25 Trachasp Gram Stain - Final 01/10/19 21:25 Trachasp Sputum Culture - Final Klebsiella Oxytoca Pseudomonas Aeruginosa 01/15/19 18:40 Blood Blood Culture - Final NO GROWTH AFTER 5 DAYS 01/15/19 18:40 Blood Gram Stain - Final TEST NOT PERFORMED 01/15/19 17:45 Blood Blood Culture - Final NO GROWTH AFTER 5 DAYS 01/15/19 17:45 Blood Gram Stain - Final TEST NOT PERFORMED 01/17/19 18:20 Sputum Gram Stain - Final 01/17/19 18:20 Sputum Sputum Culture - Final Pseudomonas Aeruginosa 01/15/19 07:16 Urine,Howe Urine Culture - Final Beta Hemolytic Strep Group B 01/07/19 18:08 Urine,Howe Urine Culture - Final Beta Hemolytic Strep Group B 01/06/19 10:41 Naris MRSA Culture (Admit) - Final MRSA NOT DETECTED Assessment and Plan (1) Hospital-acquired bacterial pneumonia Status: Acute (2) Acute respiratory failure Status: Resolved - Assessment and Plan (Free Text) Assessment: A/P- 69 year old male with h/o ETOH abuse, liver cirrhosis, liver cancer undergoing chemo who was admitted with change in MS . agitated today afebrile for past 9 days blood cx- neg x 4 Et tube cx- KLebsilele and pseudomonas not ESBL sputum cx- pseudomonas cx Plan-has completed 11 days of of IV meropenem for both pseudomonas and klebsiella pneumonia treatment . d/c meropnem today. monitor aspiration precautions. agitation evaluation as per ICu team. Critical care time spent 30 minutes.
[2019-01-28] MEDS: Insulin Detemir 100 Units/ml Inj SC SCH (21:30)
[2019-01-29] MEDS: Insulin Lispro (humaLOG) 100 Units/ml Inj SC SCH ×6 (01:21→21:07)
[2019-01-29 04:52] LABS: MEAN CELL VOLUME 114.1 fl (80.0-94.0); MEAN CORPUSCULAR HEMOGLOBIN 39.2 pg (27.0-31.0); MEAN CORPUSCULAR HGB CONC 34.3 g/dL (33.0-37.0); RBC 2.29 Mil/uL (4.40-5.90); RED CELL DISTRIBUTION WIDTH 16.4 % (11.5-14.5); WHITE BLOOD COUNT 4.6 K/uL (4.8-10.8)
[2019-01-29 05:03] LABS: BLOOD UREA NITROGEN 23 mg/dl (9-20); CALCIUM 8.4 mg/dL (8.4-10.2); GFR NON-AFRICAN AMERICAN > 60
[2019-01-29] MEDS: Levothyroxine 50 MCG TAB PO SCH (06:03)
[2019-01-29] MEDS ORDERED: Chlorhexidine Gluconate 1 APPL/PKT TP ONE (06:43)
[2019-01-29] MEDS: Acetylcysteine 20% Inhal Soln (4ml) INH SCH ×2 (07:46→19:20)
[2019-01-29] MEDS: Albuterol 0.083% Inhal Sol (2.5 mg/3 mL) UD INH SCH ×2 (07:47→19:20)
[2019-01-29] MEDS: Pantoprazole 40 mg Susp UD NG SCH (08:10)
--- NOTE | 2019-01-29 08:19 | PN ---
DATE: 01/28/2019 CRITICAL CARE PROGRESS NOTE LOCATION: The patient in ICU, bed 431. TIME SPENT: 35 minutes. The patient is seen and evaluated at the bedside. Past medical, surgical, family, and social history reviewed. Case was discussed in multidisciplinary ICU rounds this morning. SUBJECTIVE: A 68-year-old male with history significant for alcohol-related liver cirrhosis, mass in the liver, status post embolic treatment, suspected malignant neoplasm, hypertension, recent admission for hepatic encephalopathy, admitted with altered mental status, status post [employer], intubated, admitted to ICU, currently extubated, remains on 2 liters nasal cannula. Overnight afebrile, normotensive. Remains confused. Had two large bowel movements. Discussed with the patient's family at the bedside who finds him confused and not quite coherent. OBJECTIVE: VITAL SIGNS: Temperature 98, heart rate 69 and regular, blood pressure 116/70, respiratory rate 22, saturation 96%. Intake 3600, output 300, positive balance of 3300. Weight 215 pounds. HEAD, EYES, EARS, NOSE, AND THROAT: Pupils are reactive. Sclerae muddy. No nystagmus. LUNGS: Bilateral breath sounds clear to auscultation. HEART: Rhythm regular. S1, S2 normal intensity. ABDOMEN: Bowel sounds present. Soft and nontender. EXTREMITIES: No edema. NEUROLOGIC: Remains alert and awake, but confused. CURRENT MEDICATIONS: Include Tylenol 650 every 6 hours p.r.n., Mucomyst 2 mL via nebulizer every 12 hours, albuterol/Atrovent inhalation 2.5 mg twice daily, Coreg 6.25 mg every 12 hours, Pletal 50 mg every 12 hours, Benadryl 50 mg IV every 6 hours p.r.n. for agitation, folic acid 1 mg daily, haloperidol 5 mg IV every 6 hours p.r.n., Levemir 18 units subcu at bedtime as needed, Synthroid 50 mcg p.o. daily, meropenem 1 g IV every 8 hours, Protonix 40 mg daily, Aldactone 50 mg daily, Flomax 0.4 mg daily, thiamine 100 mg daily. IMPRESSION: 1. Neurologic: Remains confused. No significant improvement from his baseline metabolic encephalopathy. Repeat ammonia level is 32, two days ago. Lactulose on hold secondary to large bowel movement. 2. Pulmonary: Status post extubation. Remains stable with oxygen saturation over 94% and no respiratory distress. 3. Cardiac: Hemodynamically stable. Hypertension improved. On Coreg 6.25 mg every 12 hours. 4. Endocrine: History of hypothyroidism and diabetes. Controlled on levothyroxine 50 mcg p.o. daily, Levemir 18 units subcu daily, Accu-Chek with regular insulin coverage. 5. Peripheral vascular disease, on Pletal. Renal function stable with BUN 23 and creatinine 0.7. 6. Gastrointestinal: Hepatic encephalopathy related to chronic liver disease secondary to alcohol dependence and mass in the liver. The patient is not a candidate for liver transplant due to the underlying malignant neoplasm in the liver. Continue supportive care. Discussed with the patient's family, antibiotic being weaned off. On vancomycin and meropenem for Pseudomonas aeruginosa and Klebsiella. Awaiting for transfer to Med Surgical Floor. Stephon Peters MD
[2019-01-29] MEDS: Insulin Detemir 100 Units/ml Inj SC SCH (21:33)
--- NOTE | 2019-01-29 22:26 | CP.PCM.PN ---
Subjective - Date & Time of Evaluation Date of Evaluation: 01/28/19 Time of Evaluation: 10:00 - Subjective Subjective: Appears comfortable but confused Objective - Vital Signs/Intake and Output Vital Signs (last 24 hours): Temp Pulse Resp BP Pulse Ox 98.5 F 73 20 101/53 L 96 01/29/19 16:00 01/29/19 21:08 01/29/19 16:00 01/29/19 21:08 01/29/19 16:00 Intake and Output: 01/29/19 01/30/19 18:59 06:59 Intake Total 200 480 Output Total 400 150 Balance -200 330 - Medications Medications: Current Medications Acetaminophen (Tylenol 650mg/20.3ml Solution Ud) 650 mg NG Q6 PRN PRN Reason: for temp>100.4 deg f Acetylcysteine (Acetylcysteine 20%) 2 ml INH RBID [facility] Last Admin: 01/29/19 19:20 Dose: 2 ml Albuterol Sulfate (Albuterol 0.083% Inhal Mana (2.5 Mg/3 Ml) Ud) 2.5 mg INH RBID [facility] Last Admin: 01/29/19 19:20 Dose: 2.5 mg Carvedilol (Coreg) 6.25 mg NG Q12 [facility] Last Admin: 01/29/19 21:08 Dose: Not Given Cilostazol (Pletal) 50 mg PO Q12 [facility] Last Admin: 01/07/19 10:22 Dose: Not Given Dextrose (Dextrose 50% Inj) 0 ml IV STAT PRN; Protocol PRN Reason: Hypoglycemia Protocol Last Admin: 01/24/19 04:36 Dose: 50 ml Dextrose (Glutose 15) 0 gm PO ONCE PRN; Protocol PRN Reason: Hypoglycemia Protocol Diphenhydramine HCl (Benadryl) 50 mg IVP Q6 PRN PRN Reason: Agitation Last Admin: 01/28/19 02:53 Dose: 50 mg Folic Acid (Folic Acid) 1 mg GT DAILY [facility] Last Admin: 01/29/19 08:09 Dose: 1 mg Glucagon (Glucagen Diagnostic Kit) 0 mg IM STAT PRN; Protocol PRN Reason: Hypoglycemia Protocol Haloperidol Lactate (Haldol) 5 mg IVP Q6 PRN PRN Reason: Agitation Insulin Detemir (Levemir) 18 units SC HS [facility] Last Admin: 01/29/19 21:33 Dose: 18 units Insulin Human Lispro (Humalog) 0 units SC Q4 [facility]; Protocol Last Admin: 01/29/19 21:07 Dose: Not Given Levothyroxine Sodium (Synthroid) 50 mcg PO DAILY@0630 [facility] Last Admin: 01/29/19 06:03 Dose: 50 mcg Pantoprazole Sodium (Protonix Susp) 40 mg NG DAILY [facility] Last Admin: 01/29/19 08:10 Dose: 40 mg Spironolactone (Aldactone) 50 mg NG DAILY [facility] Last Admin: 01/29/19 08:08 Dose: 50 mg Tamsulosin HCl (Flomax) 0.4 mg NG DAILY [facility] Last Admin: 01/29/19 08:09 Dose: 0.4 mg Thiamine HCl (Vitamin B1 Tab) 100 mg GT DAILY [facility] Last Admin: 01/29/19 08:10 Dose: 100 mg - Labs Labs: 01/29/19 04:10 01/29/19 04:10 PT 16.1 Seconds (9.8-13.1) H 01/23/19 10:30 INR 1.4 01/23/19 10:30 APTT 31.5 Seconds (25.6-37.1) 01/23/19 10:30 - Head Exam Head Exam: ATRAUMATIC - Eye Exam Eye Exam: Normal appearance - ENT Exam ENT Exam: Mucous Membranes Dry - Respiratory Exam Respiratory Exam: Decreased Breath Sounds - Cardiovascular Exam Cardiovascular Exam: +S1, +S2 - GI/Abdominal Exam GI & Abdominal Exam: Normal Bowel Sounds Assessment and Plan (1) Thrombocytopenia Assessment & Plan: liver cirrhosis and splenic sequestration mild Status: Acute (2) Coagulopathy Assessment & Plan: liver disease nutritional component vit k and FFP PRN Status: Acute (3) Liver mass Assessment & Plan: HCC outpatient f/u with primary pack master Status: Acute
--- NOTE | 2019-01-29 22:28 | CP.PCM.PN ---
Subjective - Date & Time of Evaluation Date of Evaluation: 01/29/19 Time of Evaluation: 12:00 - Subjective Subjective: Appears comfortable, family at bedside. Objective - Vital Signs/Intake and Output Vital Signs (last 24 hours): Temp Pulse Resp BP Pulse Ox 98.5 F 73 20 101/53 L 96 01/29/19 16:00 01/29/19 21:08 01/29/19 16:00 01/29/19 21:08 01/29/19 16:00 Intake and Output: 01/29/19 01/30/19 18:59 06:59 Intake Total 200 480 Output Total 400 150 Balance -200 330 - Medications Medications: Current Medications Acetaminophen (Tylenol 650mg/20.3ml Solution Ud) 650 mg NG Q6 PRN PRN Reason: for temp>100.4 deg f Acetylcysteine (Acetylcysteine 20%) 2 ml INH RBID [facility] Last Admin: 01/29/19 19:20 Dose: 2 ml Albuterol Sulfate (Albuterol 0.083% Inhal Mana (2.5 Mg/3 Ml) Ud) 2.5 mg INH RBID [facility] Last Admin: 01/29/19 19:20 Dose: 2.5 mg Carvedilol (Coreg) 6.25 mg NG Q12 [facility] Last Admin: 01/29/19 21:08 Dose: Not Given Cilostazol (Pletal) 50 mg PO Q12 [facility] Last Admin: 01/07/19 10:22 Dose: Not Given Dextrose (Dextrose 50% Inj) 0 ml IV STAT PRN; Protocol PRN Reason: Hypoglycemia Protocol Last Admin: 01/24/19 04:36 Dose: 50 ml Dextrose (Glutose 15) 0 gm PO ONCE PRN; Protocol PRN Reason: Hypoglycemia Protocol Diphenhydramine HCl (Benadryl) 50 mg IVP Q6 PRN PRN Reason: Agitation Last Admin: 01/28/19 02:53 Dose: 50 mg Folic Acid (Folic Acid) 1 mg GT DAILY [facility] Last Admin: 01/29/19 08:09 Dose: 1 mg Glucagon (Glucagen Diagnostic Kit) 0 mg IM STAT PRN; Protocol PRN Reason: Hypoglycemia Protocol Haloperidol Lactate (Haldol) 5 mg IVP Q6 PRN PRN Reason: Agitation Insulin Detemir (Levemir) 18 units SC HS [facility] Last Admin: 01/29/19 21:33 Dose: 18 units Insulin Human Lispro (Humalog) 0 units SC Q4 [facility]; Protocol Last Admin: 01/29/19 21:07 Dose: Not Given Levothyroxine Sodium (Synthroid) 50 mcg PO DAILY@0630 [facility] Last Admin: 01/29/19 06:03 Dose: 50 mcg Pantoprazole Sodium (Protonix Susp) 40 mg NG DAILY [facility] Last Admin: 01/29/19 08:10 Dose: 40 mg Spironolactone (Aldactone) 50 mg NG DAILY [facility] Last Admin: 01/29/19 08:08 Dose: 50 mg Tamsulosin HCl (Flomax) 0.4 mg NG DAILY [facility] Last Admin: 01/29/19 08:09 Dose: 0.4 mg Thiamine HCl (Vitamin B1 Tab) 100 mg GT DAILY [facility] Last Admin: 01/29/19 08:10 Dose: 100 mg - Labs Labs: 01/29/19 04:10 01/29/19 04:10 PT 16.1 Seconds (9.8-13.1) H 01/23/19 10:30 INR 1.4 01/23/19 10:30 APTT 31.5 Seconds (25.6-37.1) 01/23/19 10:30 - Head Exam Head Exam: ATRAUMATIC - Eye Exam Eye Exam: Normal appearance - ENT Exam ENT Exam: Mucous Membranes Dry - Respiratory Exam Respiratory Exam: Decreased Breath Sounds - Cardiovascular Exam Cardiovascular Exam: +S1, +S2 - GI/Abdominal Exam GI & Abdominal Exam: Normal Bowel Sounds Assessment and Plan (1) Thrombocytopenia Assessment & Plan: liver cirrhosis and splenic sequestration downtrending Status: Acute (2) Coagulopathy Assessment & Plan: liver disease nutritional component vit k and FFP PRN Status: Acute (3) Liver mass Assessment & Plan: HCC outpatient f/u with primary college hire Status: Acute
--- NOTE | 2019-01-29 23:21 | CP.PCM.PN ---
Subjective - Date & Time of Evaluation Date of Evaluation: 01/28/19 Objective - Vital Signs/Intake and Output Vital Signs (last 24 hours): Temp Pulse Resp BP Pulse Ox 98.5 F 73 20 101/53 L 96 01/29/19 16:00 01/29/19 21:08 01/29/19 16:00 01/29/19 21:08 01/29/19 16:00 Intake and Output: 01/29/19 01/30/19 18:59 06:59 Intake Total 200 480 Output Total 400 150 Balance -200 330 - Medications Medications: Current Medications Acetaminophen (Tylenol 650mg/20.3ml Solution Ud) 650 mg NG Q6 PRN PRN Reason: for temp>100.4 deg f Acetylcysteine (Acetylcysteine 20%) 2 ml INH RBID [facility] Last Admin: 01/29/19 19:20 Dose: 2 ml Albuterol Sulfate (Albuterol 0.083% Inhal Mana (2.5 Mg/3 Ml) Ud) 2.5 mg INH RBID [facility] Last Admin: 01/29/19 19:20 Dose: 2.5 mg Carvedilol (Coreg) 6.25 mg NG Q12 [facility] Last Admin: 01/29/19 21:08 Dose: Not Given Cilostazol (Pletal) 50 mg PO Q12 [facility] Last Admin: 01/07/19 10:22 Dose: Not Given Dextrose (Dextrose 50% Inj) 0 ml IV STAT PRN; Protocol PRN Reason: Hypoglycemia Protocol Last Admin: 01/24/19 04:36 Dose: 50 ml Dextrose (Glutose 15) 0 gm PO ONCE PRN; Protocol PRN Reason: Hypoglycemia Protocol Diphenhydramine HCl (Benadryl) 50 mg IVP Q6 PRN PRN Reason: Agitation Last Admin: 01/28/19 02:53 Dose: 50 mg Folic Acid (Folic Acid) 1 mg GT DAILY [facility] Last Admin: 01/29/19 08:09 Dose: 1 mg Glucagon (Glucagen Diagnostic Kit) 0 mg IM STAT PRN; Protocol PRN Reason: Hypoglycemia Protocol Haloperidol Lactate (Haldol) 5 mg IVP Q6 PRN PRN Reason: Agitation Insulin Detemir (Levemir) 18 units SC HS [facility] Last Admin: 01/29/19 21:33 Dose: 18 units Insulin Human Lispro (Humalog) 0 units SC Q4 [facility]; Protocol Last Admin: 01/29/19 21:07 Dose: Not Given Levothyroxine Sodium (Synthroid) 50 mcg PO DAILY@0630 [facility] Last Admin: 01/29/19 06:03 Dose: 50 mcg Pantoprazole Sodium (Protonix Susp) 40 mg NG DAILY [facility] Last Admin: 01/29/19 08:10 Dose: 40 mg Spironolactone (Aldactone) 50 mg NG DAILY [facility] Last Admin: 01/29/19 08:08 Dose: 50 mg Tamsulosin HCl (Flomax) 0.4 mg NG DAILY [facility] Last Admin: 01/29/19 08:09 Dose: 0.4 mg Thiamine HCl (Vitamin B1 Tab) 100 mg GT DAILY [facility] Last Admin: 01/29/19 08:10 Dose: 100 mg - Labs Labs: 01/29/19 04:10 01/29/19 04:10 PT 16.1 Seconds (9.8-13.1) H 01/23/19 10:30 INR 1.4 01/23/19 10:30 APTT 31.5 Seconds (25.6-37.1) 01/23/19 10:30 Assessment and Plan (1) Acute respiratory failure Status: Resolved (2) Altered mental status Status: Resolved (3) Alcoholic cirrhosis of liver Status: Chronic (4) Hepatic encephalopathy Status: Resolved (5) DM type 2 (diabetes mellitus, type 2) Status: Acute
--- NOTE | 2019-01-29 23:21 | CP.PCM.PN ---
Subjective - Date & Time of Evaluation Date of Evaluation: 01/27/19 Objective - Vital Signs/Intake and Output Vital Signs (last 24 hours): Temp Pulse Resp BP Pulse Ox 98.5 F 73 20 101/53 L 96 01/29/19 16:00 01/29/19 21:08 01/29/19 16:00 01/29/19 21:08 01/29/19 16:00 Intake and Output: 01/29/19 01/30/19 18:59 06:59 Intake Total 200 480 Output Total 400 150 Balance -200 330 - Medications Medications: Current Medications Acetaminophen (Tylenol 650mg/20.3ml Solution Ud) 650 mg NG Q6 PRN PRN Reason: for temp>100.4 deg f Acetylcysteine (Acetylcysteine 20%) 2 ml INH RBID JOANNA Last Admin: 01/29/19 19:20 Dose: 2 ml Albuterol Sulfate (Albuterol 0.083% Inhal Mana (2.5 Mg/3 Ml) Ud) 2.5 mg INH RBID JOANNA Last Admin: 01/29/19 19:20 Dose: 2.5 mg Carvedilol (Coreg) 6.25 mg NG Q12 JOANNA Last Admin: 01/29/19 21:08 Dose: Not Given Cilostazol (Pletal) 50 mg PO Q12 JOANNA Last Admin: 01/07/19 10:22 Dose: Not Given Dextrose (Dextrose 50% Inj) 0 ml IV STAT PRN; Protocol PRN Reason: Hypoglycemia Protocol Last Admin: 01/24/19 04:36 Dose: 50 ml Dextrose (Glutose 15) 0 gm PO ONCE PRN; Protocol PRN Reason: Hypoglycemia Protocol Diphenhydramine HCl (Benadryl) 50 mg IVP Q6 PRN PRN Reason: Agitation Last Admin: 01/28/19 02:53 Dose: 50 mg Folic Acid (Folic Acid) 1 mg GT DAILY JOANNA Last Admin: 01/29/19 08:09 Dose: 1 mg Glucagon (Glucagen Diagnostic Kit) 0 mg IM STAT PRN; Protocol PRN Reason: Hypoglycemia Protocol Haloperidol Lactate (Haldol) 5 mg IVP Q6 PRN PRN Reason: Agitation Insulin Detemir (Levemir) 18 units SC HS JOANNA Last Admin: 01/29/19 21:33 Dose: 18 units Insulin Human Lispro (Humalog) 0 units SC Q4 JOANNA; Protocol Last Admin: 01/29/19 21:07 Dose: Not Given Levothyroxine Sodium (Synthroid) 50 mcg PO DAILY@0630 [facility] Last Admin: 01/29/19 06:03 Dose: 50 mcg Pantoprazole Sodium (Protonix Susp) 40 mg NG DAILY [facility] Last Admin: 01/29/19 08:10 Dose: 40 mg Spironolactone (Aldactone) 50 mg NG DAILY [facility] Last Admin: 01/29/19 08:08 Dose: 50 mg Tamsulosin HCl (Flomax) 0.4 mg NG DAILY [facility] Last Admin: 01/29/19 08:09 Dose: 0.4 mg Thiamine HCl (Vitamin B1 Tab) 100 mg GT DAILY [facility] Last Admin: 01/29/19 08:10 Dose: 100 mg - Labs Labs: 01/29/19 04:10 01/29/19 04:10 PT 16.1 Seconds (9.8-13.1) H 01/23/19 10:30 INR 1.4 01/23/19 10:30 APTT 31.5 Seconds (25.6-37.1) 01/23/19 10:30 Assessment and Plan (1) Acute respiratory failure Status: Resolved (2) Altered mental status Status: Resolved (3) Alcoholic cirrhosis of liver Status: Chronic (4) Hepatic encephalopathy Status: Resolved (5) DM type 2 (diabetes mellitus, type 2) Status: Acute
--- NOTE | 2019-01-29 23:21 | CP.PCM.PN ---
Subjective - Date & Time of Evaluation Date of Evaluation: 01/29/19 Objective - Vital Signs/Intake and Output Vital Signs (last 24 hours): Temp Pulse Resp BP Pulse Ox 98.5 F 73 20 101/53 L 96 01/29/19 16:00 01/29/19 21:08 01/29/19 16:00 01/29/19 21:08 01/29/19 16:00 Intake and Output: 01/29/19 01/30/19 18:59 06:59 Intake Total 200 480 Output Total 400 150 Balance -200 330 - Medications Medications: Current Medications Acetaminophen (Tylenol 650mg/20.3ml Solution Ud) 650 mg NG Q6 PRN PRN Reason: for temp>100.4 deg f Acetylcysteine (Acetylcysteine 20%) 2 ml INH RBID JOANNA Last Admin: 01/29/19 19:20 Dose: 2 ml Albuterol Sulfate (Albuterol 0.083% Inhal Mana (2.5 Mg/3 Ml) Ud) 2.5 mg INH RBID JOANNA Last Admin: 01/29/19 19:20 Dose: 2.5 mg Carvedilol (Coreg) 6.25 mg NG Q12 JOANNA Last Admin: 01/29/19 21:08 Dose: Not Given Cilostazol (Pletal) 50 mg PO Q12 JOANNA Last Admin: 01/07/19 10:22 Dose: Not Given Dextrose (Dextrose 50% Inj) 0 ml IV STAT PRN; Protocol PRN Reason: Hypoglycemia Protocol Last Admin: 01/24/19 04:36 Dose: 50 ml Dextrose (Glutose 15) 0 gm PO ONCE PRN; Protocol PRN Reason: Hypoglycemia Protocol Diphenhydramine HCl (Benadryl) 50 mg IVP Q6 PRN PRN Reason: Agitation Last Admin: 01/28/19 02:53 Dose: 50 mg Folic Acid (Folic Acid) 1 mg GT DAILY JOANNA Last Admin: 01/29/19 08:09 Dose: 1 mg Glucagon (Glucagen Diagnostic Kit) 0 mg IM STAT PRN; Protocol PRN Reason: Hypoglycemia Protocol Haloperidol Lactate (Haldol) 5 mg IVP Q6 PRN PRN Reason: Agitation Insulin Detemir (Levemir) 18 units SC HS JOANNA Last Admin: 01/29/19 21:33 Dose: 18 units Insulin Human Lispro (Humalog) 0 units SC Q4 JOANNA; Protocol Last Admin: 01/29/19 21:07 Dose: Not Given Levothyroxine Sodium (Synthroid) 50 mcg PO DAILY@0630 [facility] Last Admin: 01/29/19 06:03 Dose: 50 mcg Pantoprazole Sodium (Protonix Susp) 40 mg NG DAILY [facility] Last Admin: 01/29/19 08:10 Dose: 40 mg Spironolactone (Aldactone) 50 mg NG DAILY [facility] Last Admin: 01/29/19 08:08 Dose: 50 mg Tamsulosin HCl (Flomax) 0.4 mg NG DAILY [facility] Last Admin: 01/29/19 08:09 Dose: 0.4 mg Thiamine HCl (Vitamin B1 Tab) 100 mg GT DAILY [facility] Last Admin: 01/29/19 08:10 Dose: 100 mg - Labs Labs: 01/29/19 04:10 01/29/19 04:10 PT 16.1 Seconds (9.8-13.1) H 01/23/19 10:30 INR 1.4 01/23/19 10:30 APTT 31.5 Seconds (25.6-37.1) 01/23/19 10:30 Assessment and Plan (1) Acute respiratory failure Status: Resolved (2) Altered mental status Status: Resolved (3) Alcoholic cirrhosis of liver Status: Chronic (4) Hepatic encephalopathy Status: Resolved (5) DM type 2 (diabetes mellitus, type 2) Status: Acute
[2019-01-30] MEDS: Insulin Lispro (humaLOG) 100 Units/ml Inj SC SCH ×6 (01:10→21:27)
[2019-01-30 05:49] LABS: BASO % 0.8 % (0.0-2.0); EOS # 0.2 K/uL (0.0-0.7); EOS % 3.6 % (0.0-4.0); INR 1.6; LYMPH # 1.1 K/uL (1.0-4.3); LYMPH % 23.5 % (20.0-40.0); MEAN CELL VOLUME 114.1 fl (80.0-94.0); MEAN CORPUSCULAR HEMOGLOBIN 38.4 pg (27.0-31.0); MEAN CORPUSCULAR HGB CONC 33.7 g/dL (33.0-37.0); MEAN PLATELET VOLUME 11.7 fl (7.2-11.7); MONO # 0.6 K/uL (0.0-0.8); MONO % 13.7 % (0.0-10.0); NEUT # 2.7 K/uL (1.8-7.0); NEUT % 58.4 % (50.0-75.0); NRBC % 0.1 % (0.0-0.0); PROTHROMBIN TIME 18.3 Seconds (9.8-13.1); RBC 2.34 Mil/uL (4.40-5.90); RED CELL DISTRIBUTION WIDTH 16.4 % (11.5-14.5); WHITE BLOOD COUNT 4.7 K/uL (4.8-10.8)
[2019-01-30 05:52] LABS: PARTIAL THROMBOPLASTIN TIME 35.2 Seconds (25.6-37.1)
[2019-01-30 06:19] LABS: ALB/GLOB RATIO 0.5 (1.0-2.1); ALBUMIN 1.8 g/dL (3.5-5.0); ALT/SGPT 52 U/L (21-72); AST/SGOT 76 U/L (17-59); BLOOD UREA NITROGEN 24 mg/dl (9-20); CALCIUM 7.9 mg/dL (8.4-10.2); GFR NON-AFRICAN AMERICAN > 60
[2019-01-30] MEDS: Levothyroxine 50 MCG TAB PO SCH (06:57)
[2019-01-30] MEDS: Albuterol 0.083% Inhal Sol (2.5 mg/3 mL) UD INH SCH ×2 (07:23→19:04)
[2019-01-30] MEDS: Acetylcysteine 20% Inhal Soln (4ml) INH SCH ×2 (07:23→19:03)
--- NOTE | 2019-01-30 08:09 | RAD ---
Date of service: 01/30/2019 HISTORY: f/u PNA COMPARISON: 01/25/2019 TECHNIQUE: 1 view obtained. FINDINGS: LUNGS: Shallow lung volumes-similar Going for slight differences in technique no interval change in the low-density ground-glass opacity over right hemithorax slightly accentuation density in the right mid lung zone some interval increased pleural thickening and/or fluid in the right-sided minor fissure possible. No dense consolidation noted. Some linear discoid atelectatic changes crisscrossing left mid lung zone over left heart border also possible. PLEURA: Probable minimal spot lateral pleural effusions-no change suspect. Pneumothorax appreciated CARDIOVASCULAR: No aortic atherosclerotic calcification present. Cardiomegaly-similar. Pulmonary venous congestion probably slightly increased. Left-sided PICC line tip superior vena cava-similar. OSSEOUS STRUCTURES: Thoracic spondylosis. Bilateral shoulder arthrosis VISUALIZED UPPER ABDOMEN: Normal. OTHER FINDINGS: None. IMPRESSION: Slight interval increase in pulmonary venous congestion Other findings-as referenced above similar.
[2019-01-30] MEDS: Pantoprazole 40 mg Susp UD NG SCH (08:42)
--- NOTE | 2019-01-30 09:23 | CP.PCM.PN ---
Subjective - Date & Time of Evaluation Date of Evaluation: 01/30/19 Time of Evaluation: 09:22 - Subjective Subjective: Id note- Patietn seen and examined today in ICU. pt. awake and alert today and not in any distress. he is in good spirits and not agitated. denies any fever or any sob. Objective - Vital Signs/Intake and Output Vital Signs (last 24 hours): Temp Pulse Resp BP Pulse Ox 97.9 F 71 17 101/47 L 96 01/30/19 08:00 01/30/19 08:42 01/30/19 08:00 01/30/19 08:42 01/30/19 08:00 Intake and Output: 01/30/19 01/30/19 06:59 18:59 Intake Total 650 100 Output Total 150 Balance 500 100 - Medications Medications: Current Medications Acetaminophen (Tylenol 650mg/20.3ml Solution Ud) 650 mg NG Q6 PRN PRN Reason: for temp>100.4 deg f Acetylcysteine (Acetylcysteine 20%) 2 ml INH RBID [facility] Last Admin: 01/30/19 07:23 Dose: 2 ml Albuterol Sulfate (Albuterol 0.083% Inhal Mana (2.5 Mg/3 Ml) Ud) 2.5 mg INH RBID [facility] Last Admin: 01/30/19 07:23 Dose: 2.5 mg Carvedilol (Coreg) 6.25 mg NG Q12 [facility] Last Admin: 01/30/19 08:42 Dose: Not Given Cilostazol (Pletal) 50 mg PO Q12 [facility] Last Admin: 01/07/19 10:22 Dose: Not Given Dextrose (Dextrose 50% Inj) 0 ml IV STAT PRN; Protocol PRN Reason: Hypoglycemia Protocol Last Admin: 01/24/19 04:36 Dose: 50 ml Dextrose (Glutose 15) 0 gm PO ONCE PRN; Protocol PRN Reason: Hypoglycemia Protocol Diphenhydramine HCl (Benadryl) 50 mg IVP Q6 PRN PRN Reason: Agitation Last Admin: 01/28/19 02:53 Dose: 50 mg Folic Acid (Folic Acid) 1 mg GT DAILY [facility] Last Admin: 01/30/19 09:10 Dose: 1 mg Glucagon (Glucagen Diagnostic Kit) 0 mg IM STAT PRN; Protocol PRN Reason: Hypoglycemia Protocol Haloperidol Lactate (Haldol) 5 mg IVP Q6 PRN PRN Reason: Agitation Insulin Detemir (Levemir) 18 units SC HS [facility] Last Admin: 01/29/19 21:33 Dose: 18 units Insulin Human Lispro (Humalog) 0 units SC Q4 [facility]; Protocol Last Admin: 01/30/19 05:47 Dose: Not Given Levothyroxine Sodium (Synthroid) 50 mcg PO DAILY@0630 [facility] Last Admin: 01/30/19 06:57 Dose: 50 mcg Pantoprazole Sodium (Protonix Susp) 40 mg NG DAILY [facility] Last Admin: 01/30/19 08:42 Dose: 40 mg Spironolactone (Aldactone) 50 mg NG DAILY [facility] Last Admin: 01/30/19 08:42 Dose: 50 mg Tamsulosin HCl (Flomax) 0.4 mg NG DAILY [facility] Last Admin: 01/30/19 08:42 Dose: 0.4 mg Thiamine HCl (Vitamin B1 Tab) 100 mg GT DAILY [facility] Last Admin: 01/30/19 08:41 Dose: 100 mg - Labs Labs: - Additional Findings Additional findings: - Constitutional Additional comments: awake but agitated today - Neck Exam Neck exam: Positive for: Full Rom - Respiratory Exam Additional comments: good aeration b/l no wheezing - Cardiovascular Exam Cardiovascular Exam: RRR, +S1, +S2 - GI/Abdominal Exam GI & Abdominal Exam: Normal Bowel Sounds, Soft Additional comments: NT, ND - Extremities Exam Extremities exam: Positive for: 2+ LE edema B/l - Neurological Exam Neurological exam: AAO x 3 today Laboratory Results - last 72 hr 01/26/19 01/26/19 01/26/19 08:57 11:34 17:03 WBC RBC Hgb Hct MCV MCH MCHC RDW Plt Count MPV Neut % (Auto) Lymph % (Auto) [place] % (Auto) Eos % (Auto) Baso % (Auto) Neut # (Auto) Lymph # (Auto) [place] # (Auto) Eos # (Auto) Baso # (Auto) PT INR APTT Sodium Potassium Chloride Carbon Dioxide Anion Gap BUN Creatinine Est GFR ( Amer) Est GFR (Non-Af Amer) POC Glucose (mg/dL) 130 H 107 90 Random Glucose Calcium Phosphorus Magnesium Total Bilirubin AST ALT Alkaline Phosphatase Ammonia Total Protein Albumin Globulin Albumin/Globulin Ratio 01/26/19 01/27/19 01/27/19 20:59 00:54 05:59 WBC RBC Hgb Hct MCV MCH MCHC RDW Plt Count MPV Neut % (Auto) Lymph % (Auto) [place] % (Auto) Eos % (Auto) Baso % (Auto) Neut # (Auto) Lymph # (Auto) [place] # (Auto) Eos # (Auto) Baso # (Auto) PT INR APTT Sodium Potassium Chloride Carbon Dioxide Anion Gap BUN Creatinine Est GFR ( Amer) Est GFR (Non-Af Amer) POC Glucose (mg/dL) 120 H 165 H 77 Random Glucose Calcium Phosphorus Magnesium Total Bilirubin AST ALT Alkaline Phosphatase Ammonia Total Protein Albumin Globulin Albumin/Globulin Ratio 01/27/19 01/27/19 01/27/19 08:42 11:33 16:46 WBC RBC Hgb Hct MCV MCH MCHC RDW Plt Count MPV Neut % (Auto) Lymph % (Auto) [place] % (Auto) Eos % (Auto) Baso % (Auto) Neut # (Auto) Lymph # (Auto) [place] # (Auto) Eos # (Auto) Baso # (Auto) PT INR APTT Sodium Potassium Chloride Carbon Dioxide Anion Gap BUN Creatinine Est GFR ( Amer) Est GFR (Non-Af Amer) POC Glucose (mg/dL) 142 H 148 H 163 H Random Glucose Calcium Phosphorus Magnesium Total Bilirubin AST ALT Alkaline Phosphatase Ammonia Total Protein Albumin Globulin Albumin/Globulin Ratio 01/27/19 01/28/19 01/28/19 21:23 01:31 05:31 WBC 5.4 RBC 2.47 L Hgb 9.5 L Hct 28.2 L MCV 114.1 H MCH 38.4 H MCHC 33.7 RDW 16.6 H Plt Count 81 L MPV 11.6 Neut % (Auto) 68.2 Lymph % (Auto) 16.6 L [place] % (Auto) 11.0 H Eos % (Auto) 3.5 Baso % (Auto) 0.7 Neut # (Auto) 3.7 Lymph # (Auto) 0.9 L [place] # (Auto) 0.6 Eos # (Auto) 0.2 Baso # (Auto) 0.0 PT INR APTT Sodium Potassium Chloride Carbon Dioxide Anion Gap BUN Creatinine Est GFR ( Amer) Est GFR (Non-Af Amer) POC Glucose (mg/dL) 182 H 154 H Random Glucose Calcium Phosphorus Magnesium Total Bilirubin AST ALT Alkaline Phosphatase Ammonia Total Protein Albumin Globulin Albumin/Globulin Ratio 01/28/19 01/28/19 01/28/19 05:31 05:54 09:46 WBC RBC Hgb Hct MCV MCH MCHC RDW Plt Count MPV Neut % (Auto) Lymph % (Auto) [place] % (Auto) Eos % (Auto) Baso % (Auto) Neut # (Auto) Lymph # (Auto) [place] # (Auto) Eos # (Auto) Baso # (Auto) PT INR APTT Sodium 145 Potassium 3.7 Chloride 119 H Carbon Dioxide 24 Anion Gap 6 L BUN 23 H Creatinine 0.7 L Est GFR ( Amer) > 60 Est GFR (Non-Af Amer) > 60 POC Glucose (mg/dL) 135 H 140 H Random Glucose 113 H Calcium 8.5 Phosphorus 2.3 L Magnesium 1.9 Total Bilirubin 1.8 H AST 88 H ALT 54 Alkaline Phosphatase 309 H D Ammonia Total Protein 5.5 L Albumin 1.9 L Globulin 3.6 Albumin/Globulin Ratio 0.5 L 01/28/19 01/28/19 01/28/19 13:01 16:40 20:36 WBC RBC Hgb Hct MCV MCH MCHC RDW Plt Count MPV Neut % (Auto) Lymph % (Auto) [place] % (Auto) Eos % (Auto) Baso % (Auto) Neut # (Auto) Lymph # (Auto) [place] # (Auto) Eos # (Auto) Baso # (Auto) PT INR APTT Sodium Potassium Chloride Carbon Dioxide Anion Gap BUN Creatinine Est GFR ( Amer) Est GFR (Non-Af Amer) POC Glucose (mg/dL) 61 L 95 157 H Random Glucose Calcium Phosphorus Magnesium Total Bilirubin AST ALT Alkaline Phosphatase Ammonia Total Protein Albumin Globulin Albumin/Globulin Ratio 01/29/19 01/29/19 01/29/19 01:11 04:10 04:10 WBC 4.6 L RBC 2.29 L Hgb 9.0 L Hct 26.1 L MCV 114.1 H MCH 39.2 H MCHC 34.3 RDW 16.4 H Plt Count 64 L MPV Neut % (Auto) Lymph % (Auto) [place] % (Auto) Eos % (Auto) Baso % (Auto) Neut # (Auto) Lymph # (Auto) [place] # (Auto) Eos # (Auto) Baso # (Auto) PT INR APTT Sodium 143 Potassium 3.9 Chloride 117 H Carbon Dioxide 24 Anion Gap 6 L BUN 23 H Creatinine 0.8 Est GFR ( Amer) > 60 Est GFR (Non-Af Amer) > 60 POC Glucose (mg/dL) 97 Random Glucose 47 L Calcium 8.4 Phosphorus Magnesium Total Bilirubin AST ALT Alkaline Phosphatase Ammonia Total Protein Albumin Globulin Albumin/Globulin Ratio 01/29/19 01/29/19 01/29/19 05:56 06:07 06:11 WBC RBC Hgb Hct MCV MCH MCHC RDW Plt Count MPV Neut % (Auto) Lymph % (Auto) [place] % (Auto) Eos % (Auto) Baso % (Auto) Neut # (Auto) Lymph # (Auto) [place] # (Auto) Eos # (Auto) Baso # (Auto) PT INR APTT Sodium Potassium Chloride Carbon Dioxide Anion Gap BUN Creatinine Est GFR ( Amer) Est GFR (Non-Af Amer) POC Glucose (mg/dL) 44 L 47 L 46 L Random Glucose Calcium Phosphorus Magnesium Total Bilirubin AST ALT Alkaline Phosphatase Ammonia Total Protein Albumin Globulin Albumin/Globulin Ratio 01/29/19 01/29/19 01/29/19 06:33 11:13 15:14 WBC RBC Hgb Hct MCV MCH MCHC RDW Plt Count MPV Neut % (Auto) Lymph % (Auto) [place] % (Auto) Eos % (Auto) Baso % (Auto) Neut # (Auto) Lymph # (Auto) [place] # (Auto) Eos # (Auto) Baso # (Auto) PT INR APTT Sodium Potassium Chloride Carbon Dioxide Anion Gap BUN Creatinine Est GFR ( Amer) Est GFR (Non-Af Amer) POC Glucose (mg/dL) 72 173 H 144 H Random Glucose Calcium Phosphorus Magnesium Total Bilirubin AST ALT Alkaline Phosphatase Ammonia Total Protein Albumin Globulin Albumin/Globulin Ratio 01/29/19 01/29/19 01/30/19 17:17 20:09 00:16 WBC RBC Hgb Hct MCV MCH MCHC RDW Plt Count MPV Neut % (Auto) Lymph % (Auto) [place] % (Auto) Eos % (Auto) Baso % (Auto) Neut # (Auto) Lymph # (Auto) [place] # (Auto) Eos # (Auto) Baso # (Auto) PT INR APTT Sodium Potassium Chloride Carbon Dioxide Anion Gap BUN Creatinine Est GFR ( Amer) Est GFR (Non-Af Amer) POC Glucose (mg/dL) 122 H 146 H 123 H Random Glucose Calcium Phosphorus Magnesium Total Bilirubin AST ALT Alkaline Phosphatase Ammonia Total Protein Albumin Globulin Albumin/Globulin Ratio 01/30/19 01/30/19 01/30/19 04:24 05:00 05:00 WBC 4.7 L RBC 2.34 L Hgb 9.0 L Hct 26.7 L MCV 114.1 H MCH 38.4 H MCHC 33.7 RDW 16.4 H Plt Count 63 L MPV 11.7 Neut % (Auto) 58.4 Lymph % (Auto) 23.5 [place] % (Auto) 13.7 H Eos % (Auto) 3.6 Baso % (Auto) 0.8 Neut # (Auto) 2.7 Lymph # (Auto) 1.1 [place] # (Auto) 0.6 Eos # (Auto) 0.2 Baso # (Auto) 0.0 PT INR APTT Sodium 139 Potassium 4.0 Chloride 115 H Carbon Dioxide 24 Anion Gap 4 L BUN 24 H Creatinine 0.8 Est GFR ( Amer) > 60 Est GFR (Non-Af Amer) > 60 POC Glucose (mg/dL) 72 Random Glucose 58 L Calcium 7.9 L Phosphorus 2.5 Magnesium 1.8 Total Bilirubin 1.7 H AST 76 H ALT 52 Alkaline Phosphatase 168 H D Ammonia Total Protein 5.5 L Albumin 1.8 L Globulin 3.6 Albumin/Globulin Ratio 0.5 L 01/30/19 01/30/19 05:00 06:35 WBC RBC Hgb Hct MCV MCH MCHC RDW Plt Count MPV Neut % (Auto) Lymph % (Auto) [place] % (Auto) Eos % (Auto) Baso % (Auto) Neut # (Auto) Lymph # (Auto) [place] # (Auto) Eos # (Auto) Baso # (Auto) PT 18.3 H INR 1.6 APTT 35.2 Sodium Potassium Chloride Carbon Dioxide Anion Gap BUN Creatinine Est GFR ( Amer) Est GFR (Non-Af Amer) POC Glucose (mg/dL) Random Glucose Calcium Phosphorus Magnesium Total Bilirubin AST ALT Alkaline Phosphatase Ammonia 51 H D Total Protein Albumin Globulin Albumin/Globulin Ratio Laboratory Results - last 72 hr 01/26/19 01/26/19 01/26/19 08:57 11:34 17:03 WBC RBC Hgb Hct MCV MCH MCHC RDW Plt Count MPV Neut % (Auto) Lymph % (Auto) [place] % (Auto) Eos % (Auto) Baso % (Auto) Neut # (Auto) Lymph # (Auto) [place] # (Auto) Eos # (Auto) Baso # (Auto) PT INR APTT Sodium Potassium Chloride Carbon Dioxide Anion Gap BUN Creatinine Est GFR ( Amer) Est GFR (Non-Af Amer) POC Glucose (mg/dL) 130 H 107 90 Random Glucose Calcium Phosphorus Magnesium Total Bilirubin AST ALT Alkaline Phosphatase Ammonia Total Protein Albumin Globulin Albumin/Globulin Ratio 01/26/19 01/27/19 01/27/19 20:59 00:54 05:59 WBC RBC Hgb Hct MCV MCH MCHC RDW Plt Count MPV Neut % (Auto) Lymph % (Auto) [place] % (Auto) Eos % (Auto) Baso % (Auto) Neut # (Auto) Lymph # (Auto) [place] # (Auto) Eos # (Auto) Baso # (Auto) PT INR APTT Sodium Potassium Chloride Carbon Dioxide Anion Gap BUN Creatinine Est GFR ( Amer) Est GFR (Non-Af Amer) POC Glucose (mg/dL) 120 H 165 H 77 Random Glucose Calcium Phosphorus Magnesium Total Bilirubin AST ALT Alkaline Phosphatase Ammonia Total Protein Albumin Globulin Albumin/Globulin Ratio 01/27/19 01/27/19 01/27/19 08:42 11:33 16:46 WBC RBC Hgb Hct MCV MCH MCHC RDW Plt Count MPV Neut % (Auto) Lymph % (Auto) [place] % (Auto) Eos % (Auto) Baso % (Auto) Neut # (Auto) Lymph # (Auto) [place] # (Auto) Eos # (Auto) Baso # (Auto) PT INR APTT Sodium Potassium Chloride Carbon Dioxide Anion Gap BUN Creatinine Est GFR ( Amer) Est GFR (Non-Af Amer) POC Glucose (mg/dL) 142 H 148 H 163 H Random Glucose Calcium Phosphorus Magnesium Total Bilirubin AST ALT Alkaline Phosphatase Ammonia Total Protein Albumin Globulin Albumin/Globulin Ratio 01/27/19 01/28/19 01/28/19 21:23 01:31 05:31 WBC 5.4 RBC 2.47 L Hgb 9.5 L Hct 28.2 L MCV 114.1 H MCH 38.4 H MCHC 33.7 RDW 16.6 H Plt Count 81 L MPV 11.6 Neut % (Auto) 68.2 Lymph % (Auto) 16.6 L [place] % (Auto) 11.0 H Eos % (Auto) 3.5 Baso % (Auto) 0.7 Neut # (Auto) 3.7 Lymph # (Auto) 0.9 L [place] # (Auto) 0.6 Eos # (Auto) 0.2 Baso # (Auto) 0.0 PT INR APTT Sodium Potassium Chloride Carbon Dioxide Anion Gap BUN Creatinine Est GFR ( Amer) Est GFR (Non-Af Amer) POC Glucose (mg/dL) 182 H 154 H Random Glucose Calcium Phosphorus Magnesium Total Bilirubin AST ALT Alkaline Phosphatase Ammonia Total Protein Albumin Globulin Albumin/Globulin Ratio 01/28/19 01/28/19 01/28/19 05:31 05:54 09:46 WBC RBC Hgb Hct MCV MCH MCHC RDW Plt Count MPV Neut % (Auto) Lymph % (Auto) [place] % (Auto) Eos % (Auto) Baso % (Auto) Neut # (Auto) Lymph # (Auto) [place] # (Auto) Eos # (Auto) Baso # (Auto) PT INR APTT Sodium 145 Potassium 3.7 Chloride 119 H Carbon Dioxide 24 Anion Gap 6 L BUN 23 H Creatinine 0.7 L Est GFR ( Amer) > 60 Est GFR (Non-Af Amer) > 60 POC Glucose (mg/dL) 135 H 140 H Random Glucose 113 H Calcium 8.5 Phosphorus 2.3 L Magnesium 1.9 Total Bilirubin 1.8 H AST 88 H ALT 54 Alkaline Phosphatase 309 H D Ammonia Total Protein 5.5 L Albumin 1.9 L Globulin 3.6 Albumin/Globulin Ratio 0.5 L 01/28/19 01/28/19 01/28/19 13:01 16:40 20:36 WBC RBC Hgb Hct MCV MCH MCHC RDW Plt Count MPV Neut % (Auto) Lymph % (Auto) [place] % (Auto) Eos % (Auto) Baso % (Auto) Neut # (Auto) Lymph # (Auto) [place] # (Auto) Eos # (Auto) Baso # (Auto) PT INR APTT Sodium Potassium Chloride Carbon Dioxide Anion Gap BUN Creatinine Est GFR ( Amer) Est GFR (Non-Af Amer) POC Glucose (mg/dL) 61 L 95 157 H Random Glucose Calcium Phosphorus Magnesium Total Bilirubin AST ALT Alkaline Phosphatase Ammonia Total Protein Albumin Globulin Albumin/Globulin Ratio 0401/29/19 01/29/19 01:11 04:10 04:10 WBC 4.6 L RBC 2.29 L Hgb 9.0 L Hct 26.1 L MCV 114.1 H MCH 39.2 H MCHC 34.3 RDW 16.4 H Plt Count 64 L MPV Neut % (Auto) Lymph % (Auto) [place] % (Auto) Eos % (Auto) Baso % (Auto) Neut # (Auto) Lymph # (Auto) [place] # (Auto) Eos # (Auto) Baso # (Auto) PT INR APTT Sodium 143 Potassium 3.9 Chloride 117 H Carbon Dioxide 24 Anion Gap 6 L BUN 23 H Creatinine 0.8 Est GFR ( Amer) > 60 Est GFR (Non-Af Amer) > 60 POC Glucose (mg/dL) 97 Random Glucose 47 L Calcium 8.4 Phosphorus Magnesium Total Bilirubin AST ALT Alkaline Phosphatase Ammonia Total Protein Albumin Globulin Albumin/Globulin Ratio 01/29/19 01/29/19 01/29/19 05:56 06:07 06:11 WBC RBC Hgb Hct MCV MCH MCHC RDW Plt Count MPV Neut % (Auto) Lymph % (Auto) [place] % (Auto) Eos % (Auto) Baso % (Auto) Neut # (Auto) Lymph # (Auto) [place] # (Auto) Eos # (Auto) Baso # (Auto) PT INR APTT Sodium Potassium Chloride Carbon Dioxide Anion Gap BUN Creatinine Est GFR ( Amer) Est GFR (Non-Af Amer) POC Glucose (mg/dL) 44 L 47 L 46 L Random Glucose Calcium Phosphorus Magnesium Total Bilirubin AST ALT Alkaline Phosphatase Ammonia Total Protein Albumin Globulin Albumin/Globulin Ratio 01/29/19 01/29/19 01/29/19 06:33 11:13 15:14 WBC RBC Hgb Hct MCV MCH MCHC RDW Plt Count MPV Neut % (Auto) Lymph % (Auto) [place] % (Auto) Eos % (Auto) Baso % (Auto) Neut # (Auto) Lymph # (Auto) [place] # (Auto) Eos # (Auto) Baso # (Auto) PT INR APTT Sodium Potassium Chloride Carbon Dioxide Anion Gap BUN Creatinine Est GFR ( Amer) Est GFR (Non-Af Amer) POC Glucose (mg/dL) 72 173 H 144 H Random Glucose Calcium Phosphorus Magnesium Total Bilirubin AST ALT Alkaline Phosphatase Ammonia Total Protein Albumin Globulin Albumin/Globulin Ratio 01/29/19 01/29/19 01/30/19 17:17 20:09 00:16 WBC RBC Hgb Hct MCV MCH MCHC RDW Plt Count MPV Neut % (Auto) Lymph % (Auto) [place] % (Auto) Eos % (Auto) Baso % (Auto) Neut # (Auto) Lymph # (Auto) [place] # (Auto) Eos # (Auto) Baso # (Auto) PT INR APTT Sodium Potassium Chloride Carbon Dioxide Anion Gap BUN Creatinine Est GFR ( Amer) Est GFR (Non-Af Amer) POC Glucose (mg/dL) 122 H 146 H 123 H Random Glucose Calcium Phosphorus Magnesium Total Bilirubin AST ALT Alkaline Phosphatase Ammonia Total Protein Albumin Globulin Albumin/Globulin Ratio 01/30/19 01/30/19 01/30/19 04:24 05:00 05:00 WBC 4.7 L RBC 2.34 L Hgb 9.0 L Hct 26.7 L MCV 114.1 H MCH 38.4 H MCHC 33.7 RDW 16.4 H Plt Count 63 L MPV 11.7 Neut % (Auto) 58.4 Lymph % (Auto) 23.5 [place] % (Auto) 13.7 H Eos % (Auto) 3.6 Baso % (Auto) 0.8 Neut # (Auto) 2.7 Lymph # (Auto) 1.1 [place] # (Auto) 0.6 Eos # (Auto) 0.2 Baso # (Auto) 0.0 PT INR APTT Sodium 139 Potassium 4.0 Chloride 115 H Carbon Dioxide 24 Anion Gap 4 L BUN 24 H Creatinine 0.8 Est GFR ( Amer) > 60 Est GFR (Non-Af Amer) > 60 POC Glucose (mg/dL) 72 Random Glucose 58 L Calcium 7.9 L Phosphorus 2.5 Magnesium 1.8 Total Bilirubin 1.7 H AST 76 H ALT 52 Alkaline Phosphatase 168 H D Ammonia Total Protein 5.5 L Albumin 1.8 L Globulin 3.6 Albumin/Globulin Ratio 0.5 L 01/30/19 01/30/19 05:00 06:35 WBC RBC Hgb Hct MCV MCH MCHC RDW Plt Count MPV Neut % (Auto) Lymph % (Auto) [place] % (Auto) Eos % (Auto) Baso % (Auto) Neut # (Auto) Lymph # (Auto) [place] # (Auto) Eos # (Auto) Baso # (Auto) PT 18.3 H INR 1.6 APTT 35.2 Sodium Potassium Chloride Carbon Dioxide Anion Gap BUN Creatinine Est GFR ( Amer) Est GFR (Non-Af Amer) POC Glucose (mg/dL) Random Glucose Calcium Phosphorus Magnesium Total Bilirubin AST ALT Alkaline Phosphatase Ammonia 51 H D Total Protein Albumin Globulin Albumin/Globulin Ratio Microbiology 01/18/19 17:39 Blood-Venous Blood Culture - Final NO GROWTH AFTER 5 DAYS 01/18/19 17:39 Blood-Venous Gram Stain - Final TEST NOT PERFORMED 01/18/19 12:20 Blood-Venous Blood Culture - Final NO GROWTH AFTER 5 DAYS 01/18/19 12:20 Blood-Venous Gram Stain - Final TEST NOT PERFORMED 01/10/19 21:25 Trachasp Gram Stain - Final 01/10/19 21:25 Trachasp Sputum Culture - Final Klebsiella Oxytoca Pseudomonas Aeruginosa 01/15/19 18:40 Blood Blood Culture - Final NO GROWTH AFTER 5 DAYS 01/15/19 18:40 Blood Gram Stain - Final TEST NOT PERFORMED 01/15/19 17:45 Blood Blood Culture - Final NO GROWTH AFTER 5 DAYS 01/15/19 17:45 Blood Gram Stain - Final TEST NOT PERFORMED 01/17/19 18:20 Sputum Gram Stain - Final 01/17/19 18:20 Sputum Sputum Culture - Final Pseudomonas Aeruginosa 01/15/19 07:16 Urine,Howe Urine Culture - Final Beta Hemolytic Strep Group B 01/07/19 18:08 Urine,Howe Urine Culture - Final Beta Hemolytic Strep Group B 01/06/19 10:41 Naris MRSA Culture (Admit) - Final MRSA NOT DETECTED Accession No. 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 FINDINGS: LUNGS: Shallow lung volumes-similar Going for slight differences in technique no interval change in the low-density ground-glass opacity over right hemithorax slightly accentuation density in the right mid lung zone some interval increased pleural thickening and/or fluid in the right-sided minor fissure possible. No dense consolidation noted. Some linear discoid atelectatic changes crisscrossing left mid lung zone over left heart border also possible. PLEURA: Probable minimal spot lateral pleural effusions-no change suspect. Pneumothorax appreciated CARDIOVASCULAR: No aortic atherosclerotic calcification present. Cardiomegaly-similar. Pulmonary venous congestion probably slightly increased. Left-sided PICC line tip superior vena cava-similar. OSSEOUS STRUCTURES: Thoracic spondylosis. Bilateral shoulder arthrosis VISUALIZED UPPER ABDOMEN: Normal. OTHER FINDINGS: None. IMPRESSION: Slight interval increase in pulmonary venous congestion Other findings-as referenced above similar. Assessment and Plan (1) Hospital-acquired bacterial pneumonia Status: Acute (2) Acute respiratory failure Status: Resolved - Assessment and Plan (Free Text) Assessment: A/P- 69 year old male with h/o ETOH abuse, liver cirrhosis, liver cancer undergoing chemo who was admitted with change in MS . alert and in good spirits today. afebrile for past 11 days blood cx- neg x 4 Et tube cx- KLebsilele and pseudomonas not ESBL sputum cx- pseudomonas cx Plan- has completed 11 days of of IV meropenem for both pseudomonas and klebsiella pneumonia treatment . monitor aspiration precautions. observe off antibiotics at this time. Critical care time spent 30 minutes.
--- NOTE | 2019-01-30 19:46 | CP.CCUPN ---
CCU Subjective - Physician Review Subjective (Free Text): Awake, alert and appropriately responsive, has pulled out NGT several days ago, passed swallow eval and on PO diet. Shyam remains out. Temps mostly 98; SBPs 90-100s, HR 70s. Approx 1.0 liter positive fluid balance. On RA oxygen and SPO2 97%. ROS: No other pertinent negs or positive on 10+ system review Other PMSFH: All other Nursing and physician documentation reviewed to date; no new pertinent info noted relevant to current medical problems. EXAM- HEENT: very slight icterus, pupils equal, 3 mm and reactive, no gaze preference, no nystagmus NECK: no visible JVD, supple, carotids equal upstroke bilat/no bruits CHEST: decreased BS bases, no wheezes audible HEART: regular, distant, S1S2, no murmur audible, no rubs. ABD: soft, no distention, no focal tenderness, BS hypoactive EXT: ++ edema; no calf tenderness or palpable cords, distal pulses intact and symmetrical NEURO: No focal motor deficits, tone decreased. SKIN: no rashes LABS: WBC= 4.7 HGB= 9.0 PLTs = 63K Na= 139 K= 4.0 Cl= 115 HCO3= 24 BUN/Cr= 24/0.8 BS= 58 CXR: (my interp)- R basilar haziness, Interstitial changes seen near RML. IMPRESSION / MAJOR PROBLEMS NOW: 1. s/p Acute hypoxemic Resp Failure on MV, 2 metabolic encephalopathy 2. Hyperammonemia- resolved 3. Azotemia / Dehydration, doubt HRS, ATN, NIRAJ, mild Hyperosmolar state evident 4. Uncontrolled DM II 5. Thrombocytopenia / Mild Coagulopathy 2 liver disease. 6. 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 PLAN: 1. Would resume Lactulose and or Rifaximin. Serum ammonia levels increasing. Having large BMs do not preclude stopping Lactulose as ammonia production continues. Hvac Journeyman to adjust PO dietary intake as well. 2. Adjust Levemir. Hypoglycemic episodes noted. 3. Aldactone to help mobilize 3rd space fluid accumulation. 4. Needs medical clearance for Acute Rehab therapy. 5. Stable to leave ICU for further mgmt on regular Med/Surg bed.
--- NOTE | 2019-01-31 00:31 | CP.PCM.PN ---
Subjective - Date & Time of Evaluation Date of Evaluation: 01/30/19 Objective - Vital Signs/Intake and Output Vital Signs (last 24 hours): Temp Pulse Resp BP Pulse Ox 98.6 F 82 28 H 94/41 L 94 L 01/30/19 20:00 01/30/19 22:00 01/30/19 22:00 01/30/19 22:00 01/30/19 22:00 Intake and Output: 01/30/19 01/31/19 18:59 06:59 Intake Total 1280 25 Output Total 600 Balance 680 25 - Medications Medications: Current Medications Acetaminophen (Tylenol 650mg/20.3ml Solution Ud) 650 mg NG Q6 PRN PRN Reason: for temp>100.4 deg f Acetylcysteine (Acetylcysteine 20%) 2 ml INH RBID [facility] Last Admin: 01/30/19 19:03 Dose: 2 ml Albuterol Sulfate (Albuterol 0.083% Inhal Mana (2.5 Mg/3 Ml) Ud) 2.5 mg INH RBID [facility] Last Admin: 01/30/19 19:04 Dose: 2.5 mg Benzonatate (Tessalon Perles) 100 mg PO Q8 PRN PRN Reason: Cough Last Admin: 01/30/19 16:35 Dose: 100 mg Carvedilol (Coreg) 6.25 mg NG Q12 [facility] Last Admin: 01/30/19 21:07 Dose: Not Given Cilostazol (Pletal) 50 mg PO Q12 [facility] Last Admin: 01/07/19 10:22 Dose: Not Given Dextrose (Dextrose 50% Inj) 0 ml IV STAT PRN; Protocol PRN Reason: Hypoglycemia Protocol Last Admin: 01/24/19 04:36 Dose: 50 ml Dextrose (Glutose 15) 0 gm PO ONCE PRN; Protocol PRN Reason: Hypoglycemia Protocol Diphenhydramine HCl (Benadryl) 50 mg IVP Q6 PRN PRN Reason: Agitation Last Admin: 01/28/19 02:53 Dose: 50 mg Folic Acid (Folic Acid) 1 mg GT DAILY [facility] Last Admin: 01/30/19 09:10 Dose: 1 mg Glucagon (Glucagen Diagnostic Kit) 0 mg IM STAT PRN; Protocol PRN Reason: Hypoglycemia Protocol Haloperidol Lactate (Haldol) 5 mg IVP Q6 PRN PRN Reason: Agitation Insulin Detemir (Levemir) 18 units SC HS [facility] Last Admin: 01/29/19 21:33 Dose: 18 units Insulin Human Lispro (Humalog) 0 units SC Q4 [facility]; Protocol Last Admin: 01/30/19 21:27 Dose: 1 units Lactulose (Enulose) 20 gm NG Q12 [facility] Last Admin: 01/30/19 21:11 Dose: 20 gm Levothyroxine Sodium (Synthroid) 50 mcg PO DAILY@0630 [facility] Last Admin: 01/30/19 06:57 Dose: 50 mcg Pantoprazole Sodium (Protonix Susp) 40 mg NG DAILY [facility] Last Admin: 01/30/19 08:42 Dose: 40 mg Spironolactone (Aldactone) 50 mg NG DAILY [facility] Last Admin: 01/30/19 08:42 Dose: 50 mg Tamsulosin HCl (Flomax) 0.4 mg NG DAILY [facility] Last Admin: 01/30/19 08:42 Dose: 0.4 mg Thiamine HCl (Vitamin B1 Tab) 100 mg GT DAILY [facility] Last Admin: 01/30/19 08:41 Dose: 100 mg - Labs Labs: 01/30/19 05:00 01/30/19 05:00 PT 18.3 Seconds (9.8-13.1) H 01/30/19 05:00 INR 1.6 01/30/19 05:00 APTT 35.2 Seconds (25.6-37.1) 01/30/19 05:00 Assessment and Plan (1) Acute respiratory failure Status: Resolved (2) Altered mental status Status: Resolved (3) Alcoholic cirrhosis of liver Status: Chronic (4) Hepatic encephalopathy Status: Resolved (5) DM type 2 (diabetes mellitus, type 2) Status: Acute
[2019-01-31] MEDS: Insulin Lispro (humaLOG) 100 Units/ml Inj SC SCH ×6 (02:30→21:58)
[2019-01-31 05:11] LABS: BASO % 0.6 % (0.0-2.0); EOS # 0.2 K/uL (0.0-0.7); EOS % 3.9 % (0.0-4.0); HEMOGLOBIN 8.6 g/dL (12.0-18.0); MEAN CELL VOLUME 113.7 fl (80.0-94.0); MEAN CORPUSCULAR HEMOGLOBIN 38.8 pg (27.0-31.0); MEAN CORPUSCULAR HGB CONC 34.1 g/dL (33.0-37.0); MEAN PLATELET VOLUME 11.4 fl (7.2-11.7); MONO # 0.6 K/uL (0.0-0.8); MONO % 13.7 % (0.0-10.0); NEUT # 2.6 K/uL (1.8-7.0); NEUT % 59.8 % (50.0-75.0); NRBC % 0.1 % (0.0-0.0); RBC 2.23 Mil/uL (4.40-5.90); RED CELL DISTRIBUTION WIDTH 16.2 % (11.5-14.5); WHITE BLOOD COUNT 4.4 K/uL (4.8-10.8)
[2019-01-31 05:12] LABS: ALB/GLOB RATIO 0.5 (1.0-2.1); ALBUMIN 1.8 g/dL (3.5-5.0); ALT/SGPT 52 U/L (21-72); AST/SGOT 77 U/L (17-59); BLOOD UREA NITROGEN 20 mg/dl (9-20); GFR NON-AFRICAN AMERICAN > 60
[2019-01-31] MEDS: Levothyroxine 50 MCG TAB PO SCH (06:09)
[2019-01-31] MEDS: Acetylcysteine 20% Inhal Soln (4ml) INH SCH ×2 (07:57→19:08)
[2019-01-31] MEDS: Albuterol 0.083% Inhal Sol (2.5 mg/3 mL) UD INH SCH ×2 (07:57→19:08)
[2019-01-31] MEDS: Pantoprazole 40 mg Susp UD NG SCH (08:51)
--- NOTE | 2019-01-31 18:07 | CP.CCUPN ---
CCU Subjective - Physician Review Subjective (Free Text): Awake, alert and oriented x 3, observed ability to take short shuffling steps from bed to chair, +mild dyspnea on exertion, but no CP, dizziness, palpitations, or new focal weakness. Temps mostly 98; SBPs 110s, HR 80s. Urine output 600mlovernight. On RA oxygen and SPO2 97%. Weight down to 200 lb from 215. ROS: No other pertinent negs or positive on 10+ system review Other PMSFH: All other Nursing and physician documentation reviewed to date; no new pertinent info noted relevant to current medical problems. EXAM- HEENT: very slight icterus, pupils equal, 3 mm and reactive, no gaze preference, no nystagmus NECK: no visible JVD, supple, carotids equal upstroke bilat/no bruits CHEST: decreased BS bases, no wheezes audible HEART: regular, distant, S1S2, no murmur audible, no rubs. ABD: soft, no distention, no focal tenderness, BS hypoactive EXT: ++ edema; no calf tenderness or palpable cords, distal pulses intact and symmetrical NEURO: No focal motor deficits, tone decreased. SKIN: no rashes LABS: WBC= 4.4 HGB= 8.6 PLTs = 60K Na= 138 K= 4.2 Cl= 112 HCO3= 25 BUN/Cr= 20/0.7 BS= 95 IMPRESSION / MAJOR PROBLEMS NOW: 1. s/p Acute hypoxemic Resp Failure on MV, 2 metabolic encephalopathy 2. Hyperammonemia- resolved / controlled 3. Azotemia / Dehydration, doubt HRS, ATN, NIRAJ, mild Hyperosmolar state evident 4. Uncontrolled DM II 5. Thrombocytopenia / Mild Coagulopathy 2 liver disease. 6. 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 PLAN: 1. After resuming Lactulose (stopped when patient pulled out NGT), Serum ammonia levels stabilizing and have not exceeded 100. Cash Room Clerk adjusted PO dietary intake as well. 2. Holding / Adjust Levemir. Hypoglycemic episodes noted. 3. Aldactone to help mobilize 3rd space fluid accumulation. 4. Acute Rehab therapy pending medical clearance. 5. Stable to leave ICU for further mgmt on regular Med/Surg bed.
--- NOTE | 2019-01-31 20:45 | CP.PCM.PN ---
Subjective - Date & Time of Evaluation Date of Evaluation: 01/30/19 Time of Evaluation: 19:00 - Subjective Subjective: No complaints. Objective - Vital Signs/Intake and Output Vital Signs (last 24 hours): Temp Pulse Resp BP Pulse Ox 97.7 F 83 18 111/64 94 L 01/31/19 20:12 01/31/19 20:12 01/31/19 20:12 01/31/19 20:12 01/31/19 20:12 Intake and Output: 01/31/19 02/01/19 18:59 06:59 Intake Total 480 Output Total 600 Balance -120 - Medications Medications: Current Medications Acetaminophen (Tylenol 650mg/20.3ml Solution Ud) 650 mg NG Q6 PRN PRN Reason: for temp>100.4 deg f Acetylcysteine (Acetylcysteine 20%) 2 ml INH RBID [facility] Last Admin: 01/31/19 19:08 Dose: 2 ml Albuterol Sulfate (Albuterol 0.083% Inhal Mana (2.5 Mg/3 Ml) Ud) 2.5 mg INH RBID [facility] Last Admin: 01/31/19 19:08 Dose: 2.5 mg Benzonatate (Tessalon Perles) 100 mg PO Q8 PRN PRN Reason: Cough Last Admin: 01/30/19 16:35 Dose: 100 mg Carvedilol (Coreg) 6.25 mg PO Q12 [facility] Cilostazol (Pletal) 50 mg PO Q12 [facility] Last Admin: 01/07/19 10:22 Dose: Not Given Dextrose (Dextrose 50% Inj) 0 ml IV STAT PRN; Protocol PRN Reason: Hypoglycemia Protocol Last Admin: 01/24/19 04:36 Dose: 50 ml Dextrose (Glutose 15) 0 gm PO ONCE PRN; Protocol PRN Reason: Hypoglycemia Protocol Diphenhydramine HCl (Benadryl) 50 mg IVP Q6 PRN PRN Reason: Agitation Last Admin: 01/28/19 02:53 Dose: 50 mg Folic Acid (Folic Acid) 1 mg GT DAILY [facility] Last Admin: 01/31/19 08:51 Dose: 1 mg Glucagon (Glucagen Diagnostic Kit) 0 mg IM STAT PRN; Protocol PRN Reason: Hypoglycemia Protocol Haloperidol Lactate (Haldol) 5 mg IVP Q6 PRN PRN Reason: Agitation Insulin Detemir (Levemir) 18 units SC [facility] Last Admin: 01/29/19 21:33 Dose: 18 units Insulin Human Lispro (Humalog) 0 units SC ACHS [facility]; Protocol Last Admin: 01/31/19 16:34 Dose: Not Given Lactulose (Enulose) 20 gm PO Q12 [facility] Levothyroxine Sodium (Synthroid) 50 mcg PO DAILY@0630 [facility] Last Admin: 01/31/19 06:09 Dose: 50 mcg Pantoprazole Sodium (Protonix Susp) 40 mg NG DAILY [facility] Last Admin: 01/31/19 08:51 Dose: 40 mg Spironolactone (Aldactone) 50 mg NG DAILY [facility] Last Admin: 01/31/19 08:51 Dose: 50 mg Tamsulosin HCl (Flomax) 0.4 mg NG DAILY [facility] Last Admin: 01/31/19 08:50 Dose: 0.4 mg Thiamine HCl (Vitamin B1 Tab) 100 mg GT DAILY [facility] Last Admin: 01/31/19 08:51 Dose: 100 mg - Labs Labs: 01/31/19 04:55 01/31/19 04:55 PT 18.3 Seconds (9.8-13.1) H 01/30/19 05:00 INR 1.6 01/30/19 05:00 APTT 35.2 Seconds (25.6-37.1) 01/30/19 05:00 - Head Exam Head Exam: ATRAUMATIC - Eye Exam Eye Exam: Normal appearance - ENT Exam ENT Exam: Mucous Membranes Dry - Respiratory Exam Respiratory Exam: NORMAL BREATHING PATTERN - Cardiovascular Exam Cardiovascular Exam: +S1, +S2 - GI/Abdominal Exam GI & Abdominal Exam: Normal Bowel Sounds - Extremities Exam Extremities Exam: Pedal Edema Assessment and Plan (1) Thrombocytopenia Assessment & Plan: liver cirrhosis and splenic sequestration downtrending Status: Acute (2) Coagulopathy Assessment & Plan: liver disease nutritional component vit k and FFP PRN Status: Acute (3) Liver mass Assessment & Plan: HCC outpatient f/u with 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
--- NOTE | 2019-01-31 21:01 | CP.PCM.PN ---
Subjective - Date & Time of Evaluation Date of Evaluation: 01/31/19 Time of Evaluation: 12:00 - Subjective Subjective: No complaints, at bedside. Objective - Vital Signs/Intake and Output Vital Signs (last 24 hours): Temp Pulse Resp BP Pulse Ox 97.7 F 83 18 111/64 94 L 01/31/19 20:12 01/31/19 20:12 01/31/19 20:12 01/31/19 20:12 01/31/19 20:12 Intake and Output: 01/31/19 02/01/19 18:59 06:59 Intake Total 480 Output Total 600 Balance -120 - Medications Medications: Current Medications Acetaminophen (Tylenol 650mg/20.3ml Solution Ud) 650 mg NG Q6 PRN PRN Reason: for temp>100.4 deg f Acetylcysteine (Acetylcysteine 20%) 2 ml INH RBID [facility] Last Admin: 01/31/19 19:08 Dose: 2 ml Albuterol Sulfate (Albuterol 0.083% Inhal Mana (2.5 Mg/3 Ml) Ud) 2.5 mg INH RBID [facility] Last Admin: 01/31/19 19:08 Dose: 2.5 mg Benzonatate (Tessalon Perles) 100 mg PO Q8 PRN PRN Reason: Cough Last Admin: 01/30/19 16:35 Dose: 100 mg Carvedilol (Coreg) 6.25 mg PO Q12 [facility] Cilostazol (Pletal) 50 mg PO Q12 [facility] Last Admin: 01/07/19 10:22 Dose: Not Given Dextrose (Dextrose 50% Inj) 0 ml IV STAT PRN; Protocol PRN Reason: Hypoglycemia Protocol Last Admin: 01/24/19 04:36 Dose: 50 ml Dextrose (Glutose 15) 0 gm PO ONCE PRN; Protocol PRN Reason: Hypoglycemia Protocol Diphenhydramine HCl (Benadryl) 50 mg IVP Q6 PRN PRN Reason: Agitation Last Admin: 01/28/19 02:53 Dose: 50 mg Folic Acid (Folic Acid) 1 mg GT DAILY [facility] Last Admin: 01/31/19 08:51 Dose: 1 mg Glucagon (Glucagen Diagnostic Kit) 0 mg IM STAT PRN; Protocol PRN Reason: Hypoglycemia Protocol Haloperidol Lactate (Haldol) 5 mg IVP Q6 PRN PRN Reason: Agitation Insulin Detemir (Levemir) 18 units SC [facility] Last Admin: 01/29/19 21:33 Dose: 18 units Insulin Human Lispro (Humalog) 0 units SC [facility]; Protocol Last Admin: 01/31/19 16:34 Dose: Not Given Lactulose (Enulose) 20 gm PO Q12 [facility] Levothyroxine Sodium (Synthroid) 50 mcg PO DAILY@0630 [facility] Last Admin: 01/31/19 06:09 Dose: 50 mcg Pantoprazole Sodium (Protonix Susp) 40 mg NG DAILY [facility] Last Admin: 01/31/19 08:51 Dose: 40 mg Spironolactone (Aldactone) 50 mg NG DAILY [facility] Last Admin: 01/31/19 08:51 Dose: 50 mg Tamsulosin HCl (Flomax) 0.4 mg NG DAILY [facility] Last Admin: 01/31/19 08:50 Dose: 0.4 mg Thiamine HCl (Vitamin B1 Tab) 100 mg GT DAILY [facility] Last Admin: 01/31/19 08:51 Dose: 100 mg - Labs Labs: 01/31/19 04:55 01/31/19 04:55 PT 18.3 Seconds (9.8-13.1) H 01/30/19 05:00 INR 1.6 01/30/19 05:00 APTT 35.2 Seconds (25.6-37.1) 01/30/19 05:00 - Head Exam Head Exam: ATRAUMATIC - Eye Exam Eye Exam: Normal appearance - ENT Exam ENT Exam: Mucous Membranes Dry - Respiratory Exam Respiratory Exam: NORMAL BREATHING PATTERN Assessment and Plan (1) Thrombocytopenia Assessment & Plan: liver cirrhosis and splenic sequestration downtrending Status: Acute (2) Coagulopathy Assessment & Plan: liver disease nutritional component vit k and FFP PRN Status: Acute (3) Liver mass Assessment & Plan: HCC 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
--- NOTE | 2019-01-31 23:26 | CP.PCM.PN ---
Subjective - Date & Time of Evaluation Date of Evaluation: 01/31/19 Objective - Vital Signs/Intake and Output Vital Signs (last 24 hours): Temp Pulse Resp BP Pulse Ox 97.7 F 79 18 99/58 L 94 L 01/31/19 20:12 01/31/19 21:22 01/31/19 20:12 01/31/19 21:22 01/31/19 20:12 Intake and Output: 01/31/19 02/01/19 18:59 06:59 Intake Total 480 Output Total 600 Balance -120 - Medications Medications: Current Medications Acetaminophen (Tylenol 650mg/20.3ml Solution Ud) 650 mg NG Q6 PRN PRN Reason: for temp>100.4 deg f Acetylcysteine (Acetylcysteine 20%) 2 ml INH RBID [facility] Last Admin: 01/31/19 19:08 Dose: 2 ml Albuterol Sulfate (Albuterol 0.083% Inhal Mana (2.5 Mg/3 Ml) Ud) 2.5 mg INH RBID [facility] Last Admin: 01/31/19 19:08 Dose: 2.5 mg Benzonatate (Tessalon Perles) 100 mg PO Q8 PRN PRN Reason: Cough Last Admin: 01/30/19 16:35 Dose: 100 mg Carvedilol (Coreg) 6.25 mg PO Q12 [facility] Last Admin: 01/31/19 21:22 Dose: Not Given Cilostazol (Pletal) 50 mg PO Q12 [facility] Last Admin: 01/07/19 10:22 Dose: Not Given Dextrose (Dextrose 50% Inj) 0 ml IV STAT PRN; Protocol PRN Reason: Hypoglycemia Protocol Last Admin: 01/24/19 04:36 Dose: 50 ml Dextrose (Glutose 15) 0 gm PO ONCE PRN; Protocol PRN Reason: Hypoglycemia Protocol Diphenhydramine HCl (Benadryl) 50 mg IVP Q6 PRN PRN Reason: Agitation Last Admin: 01/28/19 02:53 Dose: 50 mg Folic Acid (Folic Acid) 1 mg GT DAILY [facility] Last Admin: 01/31/19 08:51 Dose: 1 mg Glucagon (Glucagen Diagnostic Kit) 0 mg IM STAT PRN; Protocol PRN Reason: Hypoglycemia Protocol Haloperidol Lactate (Haldol) 5 mg IVP Q6 PRN PRN Reason: Agitation Insulin Detemir (Levemir) 18 units SC [facility] Last Admin: 01/29/19 21:33 Dose: 18 units Insulin Human Lispro (Humalog) 0 units SC [facility]; Protocol Last Admin: 01/31/19 21:58 Dose: Not Given Lactulose (Enulose) 20 gm PO Q12 [facility] Last Admin: 01/31/19 21:10 Dose: 20 gm Levothyroxine Sodium (Synthroid) 50 mcg PO DAILY@0630 [facility] Last Admin: 01/31/19 06:09 Dose: 50 mcg Pantoprazole Sodium (Protonix Susp) 40 mg NG DAILY [facility] Last Admin: 01/31/19 08:51 Dose: 40 mg Spironolactone (Aldactone) 50 mg NG DAILY [facility] Last Admin: 01/31/19 08:51 Dose: 50 mg Tamsulosin HCl (Flomax) 0.4 mg NG DAILY [facility] Last Admin: 01/31/19 08:50 Dose: 0.4 mg Thiamine HCl (Vitamin B1 Tab) 100 mg GT DAILY [facility] Last Admin: 01/31/19 08:51 Dose: 100 mg - Labs Labs: 01/31/19 04:55 01/31/19 04:55 PT 18.3 Seconds (9.8-13.1) H 01/30/19 05:00 INR 1.6 01/30/19 05:00 APTT 35.2 Seconds (25.6-37.1) 01/30/19 05:00 Assessment and Plan (1) Acute respiratory failure Status: Resolved (2) Altered mental status Status: Resolved (3) Alcoholic cirrhosis of liver Status: Chronic (4) Hepatic encephalopathy Status: Resolved (5) DM type 2 (diabetes mellitus, type 2) Status: Acute
[2019-01-31 23:50] VITALS: O2SAT 97
[2019-02-01] MEDS: Levothyroxine 50 MCG TAB PO SCH (05:44)
[2019-02-01] MEDS: Albuterol 0.083% Inhal Sol (2.5 mg/3 mL) UD INH SCH (07:47)
[2019-02-01] MEDS: Acetylcysteine 20% Inhal Soln (4ml) INH SCH (07:47)
[2019-02-01] MEDS: Insulin Lispro (humaLOG) 100 Units/ml Inj SC SCH ×3 (08:36→16:54)
[2019-02-01] MEDS: Pantoprazole 40 mg Susp UD NG SCH (08:52)
[2019-02-01] MEDS ORDERED: Acetaminophen 650mg/20.3ml solution UD PO PRN (11:20)
[2019-02-01 14:17] LABS: BASO % 0.8 % (0.0-2.0); EOS # 0.1 K/uL (0.0-0.7); EOS % 3.2 % (0.0-4.0); HEMOGLOBIN 8.8 g/dL (12.0-18.0); LYMPH # 0.9 K/uL (1.0-4.3); LYMPH % 19.5 % (20.0-40.0); MEAN CELL VOLUME 114.1 fl (80.0-94.0); MEAN CORPUSCULAR HEMOGLOBIN 38.3 pg (27.0-31.0); MEAN CORPUSCULAR HGB CONC 33.6 g/dL (33.0-37.0); MEAN PLATELET VOLUME 10.8 fl (7.2-11.7); MONO # 0.6 K/uL (0.0-0.8); MONO % 13.1 % (0.0-10.0); NEUT # 2.8 K/uL (1.8-7.0); NEUT % 63.4 % (50.0-75.0); NRBC % 0.1 % (0.0-0.0); RBC 2.29 Mil/uL (4.40-5.90); WHITE BLOOD COUNT 4.4 K/uL (4.8-10.8)
[2019-02-01 14:28] LABS: ALB/GLOB RATIO 0.5 (1.0-2.1); ALT/SGPT 52 U/L (21-72); AST/SGOT 75 U/L (17-59); BLOOD UREA NITROGEN 18 mg/dl (9-20); CALCIUM 8.1 mg/dL (8.4-10.2); GFR NON-AFRICAN AMERICAN > 60
[2019-02-01 15:55] VITALS: BP 104/66; PULSE 73; RESP 20; TEMP 97.8
[2019-02-02] MEDS ORDERED: Pantoprazole 40 mg Susp UD PO SCH (09:00)
--- NOTE | 2019-02-03 23:45 | CP.PCM.DIS ---
Provider - Provider Date of Admission: 01/06/19 00:33 Attending physician: Kiana Rowe MD Consults: 01/06/19 09:00 Case Management Referral Routine Comment: Physician Instructions: Reason For Exam: requesting home care svs for pt Reason for Referral: Discharge Planning Nursing Referral for Palliative Care Routine Comment: Consulting Provider: Marlen Giron Physician Instructions: Reason For Exam: liver CA Nursing Referral for Wound Care Routine Comment: Physician Instructions: Reason For Exam: low jaimie scale 01/06/19 18:56 Hematology Oncology Consult Routine Comment: liver ca Consulting Provider: Dane Ruano Consulting Physician: Dane Ruano Reason for Consult: liver ca 01/08/19 09:35 Pulmonology Consult Routine Comment: Consulting Provider: Jose Lagos Consulting Physician: Jose Lagos Reason for Consult: S/P Intubation on MV, Vent Management 01/08/19 10:17 Gastroenterology Consult Routine Comment: Consulting Provider: Naeem Paulino Consulting Physician: Naeem Paulino Reason for Consult: liver cirrhosis, hepatic failure 01/15/19 09:43 Nephrology Consult Routine Comment: Acute kidney injury with Hyperkalemia Consulting Provider: Darryl Lorenzo Consulting Physician: Darryl Lorenzo Reason for Consult: Acute kidney injury with Hyperkalemia 01/18/19 15:47 Infectious Disease Consult Routine Comment: Consulting Provider: Shaggy Menjivar Consulting Physician: Shaggy Menjivar Reason for Consult: HAP on vanco, cefepime and ciprofloxacin. Time Spent in preparation of Discharge (in minutes): 30 Diagnosis - Discharge Diagnosis (1) Acute respiratory failure Status: Resolved Priority: High (2) Altered mental status Status: Resolved Priority: High (3) Alcoholic cirrhosis of liver Status: Chronic Priority: High (4) Hepatic encephalopathy Status: Resolved Priority: High (5) DM type 2 (diabetes mellitus, type 2) Status: Acute Hospital Course - Lab Results Lab Results: Micro Results 01/31/19 08:12 Naris MRSA Culture (Admit) - Final MRSA NOT DETECTED 01/18/19 17:39 Blood-Venous Blood Culture - Final NO GROWTH AFTER 5 DAYS 01/18/19 17:39 Blood-Venous Gram Stain - Final TEST NOT PERFORMED 01/18/19 12:20 Blood-Venous Blood Culture - Final NO GROWTH AFTER 5 DAYS 01/18/19 12:20 Blood-Venous Gram Stain - Final TEST NOT PERFORMED 01/10/19 21:25 Trachasp Gram Stain - Final 01/10/19 21:25 Trachasp Sputum Culture - Final Klebsiella Oxytoca Pseudomonas Aeruginosa 01/15/19 18:40 Blood Blood Culture - Final NO GROWTH AFTER 5 DAYS 01/15/19 18:40 Blood Gram Stain - Final TEST NOT PERFORMED 01/15/19 17:45 Blood Blood Culture - Final NO GROWTH AFTER 5 DAYS 01/15/19 17:45 Blood Gram Stain - Final TEST NOT PERFORMED 01/17/19 18:20 Sputum Gram Stain - Final 01/17/19 18:20 Sputum Sputum Culture - Final Pseudomonas Aeruginosa 01/15/19 07:16 Urine,Howe Urine Culture - Final Beta Hemolytic Strep Group B 01/07/19 18:08 Urine,Howe Urine Culture - Final Beta Hemolytic Strep Group B 01/06/19 10:41 Naris MRSA Culture (Admit) - Final MRSA NOT DETECTED Most Recent Lab Values WBC 4.4 K/uL (4.8-10.8) L 02/01/19 14:02 RBC 2.29 Mil/uL (4.40-5.90) L 02/01/19 14:02 Hgb 8.8 g/dL (12.0-18.0) L 02/01/19 14:02 Hct 26.1 % (35.0-51.0) L 02/01/19 14:02 MCV 114.1 fl (80.0-94.0) H 02/01/19 14:02 MCH 38.3 pg (27.0-31.0) H 02/01/19 14:02 MCHC 33.6 g/dL (33.0-37.0) 02/01/19 14:02 RDW 16.0 % (11.5-14.5) H 02/01/19 14:02 Plt Count 67 K/uL (130-400) L 02/01/19 14:02 MPV 10.8 fl (7.2-11.7) 02/01/19 14:02 Neut % (Auto) 63.4 % (50.0-75.0) 02/01/19 14:02 Lymph % (Auto) 19.5 % (20.0-40.0) L 02/01/19 14:02 Schleicher % (Auto) 13.1 % (0.0-10.0) H 02/01/19 14:02 Eos % (Auto) 3.2 % (0.0-4.0) 02/01/19 14:02 Baso % (Auto) 0.8 % (0.0-2.0) 02/01/19 14:02 Neut # (Auto) 2.8 K/uL (1.8-7.0) 02/01/19 14:02 Lymph # (Auto) 0.9 K/uL (1.0-4.3) L 02/01/19 14:02 Schleicher # (Auto) 0.6 K/uL (0.0-0.8) 02/01/19 14:02 Eos # (Auto) 0.1 K/uL (0.0-0.7) 02/01/19 14:02 Baso # (Auto) 0.0 K/uL (0.0-0.2) 02/01/19 14:02 Neutrophils % (Manual) 79 % (42-75) H 01/23/19 05:40 Band Neutrophils % 1 % (0-2) 01/11/19 05:33 Lymphocytes % (Manual) 10 % (20-50) L 01/23/19 05:40 Monocytes % (Manual) 8 % (0-10) 01/23/19 05:40 Eosinophils % (Manual) 2 % (0-7) 01/23/19 05:40 Basophils % (Manual) 1 % (0-2) 01/23/19 05:40 Myelocytes % 1 % (0-0) H 01/19/19 04:30 Toxic Granulation Present 01/23/19 05:40 Platelet Estimate Decreased (NORMAL) L 01/23/19 05:40 Large Platelets Present 01/19/19 04:30 Hypochromasia (manual) Slight 01/23/19 05:40 Anisocytosis (manual) Slight 01/23/19 05:40 Microcytosis (manual) Slight 01/16/19 04:10 Macrocytosis (manual) Moderate 01/23/19 05:40 Tear Drop Cells Slight 01/19/19 04:30 Ovalocytes Slight 01/16/19 04:10 PT 18.3 Seconds (9.8-13.1) H 01/30/19 05:00 INR 1.6 01/30/19 05:00 APTT 35.2 Seconds (25.6-37.1) 01/30/19 05:00 pCO2 38 mm/Hg (35-45) 01/20/19 08:31 pO2 83 mm/Hg (80-100) 01/20/19 08:31 HCO3 30.8 mmol/L (21-28) H 01/20/19 08:31 ABG pH 7.52 (7.35-7.45) H 01/20/19 08:31 ABG Total CO2 32.2 mmol/L (22-28) H 01/20/19 08:31 ABG O2 Saturation 99.0 % (95-98) H 01/20/19 08:31 ABG O2 Content 15.6 ML/dL (15-23) 01/20/19 08:31 ABG Base Excess 7.6 mmol/L (-2.0-3.0) H 01/20/19 08:31 ABG Hemoglobin 11.5 g/dL (11.7-17.4) L 01/20/19 08:31 ABG Carboxyhemoglobin 1.8 % (0.5-1.5) H 01/20/19 08:31 POC ABG HHb (Measured) 1.0 % (0.0-5.0) 01/20/19 08:31 ABG Methemoglobin 1.3 % (0.0-3.0) 01/20/19 08:31 ABG O2 Capacity 15.8 mL/dL (16-24) L 01/20/19 08:31 Lupillo Test Yes 01/20/19 08:31 A-a O2 Difference 83.0 mm/Hg 01/20/19 08:31 Hgb O2 Saturation 95.8 % (95.0-98.0) 01/20/19 08:31 Vent Mode Cpap+ps 01/20/19 08:31 Mechanical Rate 10 01/20/19 05:06 FiO2 30.0 % 01/20/19 08:31 Tidal Volume 400 01/20/19 05:06 PEEP 10 01/20/19 08:31 Pressure Support 5 01/20/19 08:31 Sodium 137 mmol/l (132-148) 02/01/19 14:02 Potassium 4.4 MMOL/L (3.6-5.0) 02/01/19 14:02 Chloride 109 mmol/L (98-107) H 02/01/19 14:02 Carbon Dioxide 24 mmol/L (22-30) 02/01/19 14:02 Anion Gap 8 (10-20) L 02/01/19 14:02 BUN 18 mg/dl (9-20) 02/01/19 14:02 Creatinine 0.7 mg/dl (0.8-1.5) L 02/01/19 14:02 Est GFR ( Amer) > 60 02/01/19 14:02 Est GFR (Non-Af Amer) > 60 02/01/19 14:02 POC Glucose (mg/dL) 141 mg/dL (65-110) H 02/01/19 16:03 Random Glucose 141 mg/dL (75-110) H 02/01/19 14:02 Serum Osmolality 324 mosm/kg (272-300) H 01/26/19 05:00 Lactic Acid 1.2 mmol/L (0.7-2.1) 01/19/19 04:30 Calcium 8.1 mg/dL (8.4-10.2) L 02/01/19 14:02 Phosphorus 3.0 mg/dl (2.5-4.5) 02/01/19 14:02 Magnesium 1.7 MG/DL (1.6-2.3) 02/01/19 14:02 Total Bilirubin 1.7 mg/dl (0.2-1.3) H 02/01/19 14:02 GGT 303 U/L (8-78) H 01/23/19 10:30 AST 75 U/L (17-59) H 02/01/19 14:02 ALT 52 U/L (21-72) 02/01/19 14:02 Alkaline Phosphatase 167 U/L (38-126) H 02/01/19 14:02 Ammonia 38 umol/L (9-33) H D 01/31/19 04:55 Total Protein 5.8 G/DL (6.3-8.2) L 02/01/19 14:02 Albumin 2.0 g/dL (3.5-5.0) L 02/01/19 14:02 Globulin 3.8 gm/dL (2.2-3.9) 02/01/19 14:02 Albumin/Globulin Ratio 0.5 (1.0-2.1) L 02/01/19 14:02 Lipase 139 U/L (23-300) 01/05/19 23:56 Prostate Specific Ag 0.215 ng/ML (0.00-4.0) 01/23/19 05:40 Vitamin B12 > 1000 pg/mL (239-931) H 01/06/19 06:30 Procalcitonin 1.10 NG/ML (0.19-0.49) H 01/16/19 04:10 Free T4 0.95 ng/dL (0.78-2.19) 01/08/19 09:55 Free T3 pg/mL 2.80 pg/mL (2.77-5.27) 01/08/19 10:13 TSH 3rd Generation 4.43 mIU/ML (0.46-4.68) 01/08/19 10:13 Urine Color Yana (YELLOW) 01/24/19 16:17 Urine Clarity Slighty-cloudy (Clear) 01/24/19 16:17 Urine pH 5.0 (5.0-8.0) 01/24/19 16:17 Ur Specific [place] 1.033 (1.003-1.030) H 01/24/19 16:17 Urine Protein 30 mg/dL (NEGATIVE) 01/24/19 16:17 Urine Glucose (UA) 50 mg/dL (NEGATIVE) 01/24/19 16:17 Urine Ketones Negative mg/dL (NEGATIVE) 01/24/19 16:17 Urine Blood Negative (NEGATIVE) 01/24/19 16:17 Urine Nitrate Negative (NEGATIVE) 01/24/19 16:17 Urine Bilirubin Negative (NEGATIVE) 01/24/19 16:17 Urine Urobilinogen 0.2-1.0 mg/dL (0.2-1.0) 01/24/19 16:17 Ur Leukocyte Esterase Neg Kim/uL (Negative) 01/24/19 16:17 Urine RBC (Auto) 3 /hpf (0-3) 01/24/19 16:17 Urine Microscopic WBC 2 /hpf (0-5) 01/24/19 16:17 Ur Squamous Epith Cells < 1 /hpf (0-5) 01/07/19 18:08 Urine Bacteria Many (<OCC) H 01/07/19 18:08 Hyaline Casts 3-5 /hpf (0-2) H 01/24/19 16:17 Urine Osmolality 504 mosm/kg (300-1000) 01/15/19 14:36 Ur Random Creatinine 89.9 mg/dL 01/15/19 14:36 U Random Total Protein 12.0 mg/dL (0.0-12.0) 01/15/19 14:36 Ur Random Sodium < 5 mmol/L 01/15/19 14:36 Ur Random Potassium 28.5 mmol/L 01/08/19 13:00 Stool Occult Blood Negative (NEGATIVE) 01/16/19 16:00 Random Vancomycin 5.8 ug/mL 01/18/19 10:55 Discharge Exam - Head Exam Head Exam: ATRAUMATIC Discharge Plan - Follow Up Plan Condition: FAIR Disposition: REHAB FACILITY/REHAB UNIT Instructions: Hepatic Encephalopathy (DC)
== END 2019-02-01 18:30 | DRG 207 ==
LOC: H.ER 23:19 → H.ERHOLD 01-06 00:33 → H.MEDSURG1 01-06 04:16 → H.ICU/CCU 01-06 07:28 → H.MEDSURG1 01-31 18:58
PROVIDERS: ADMIT Internal Medicine; ATTEND Internal Medicine
PROC: 0BH17EZ Insertion of Endotracheal Airway into Trachea, Via Natural or Artificial Opening (ICD-10-PCS; principal; 2019-01-06)
PROC: 5A1955Z Respiratory Ventilation, Greater than 96 Consecutive Hours (ICD-10-PCS; 2019-01-06)
PROC: 05HY33Z Insertion of Infusion Device into Upper Vein, Percutaneous Approach (ICD-10-PCS; 2019-01-25)
DX: J96.01 Acute respiratory failure with hypoxia (principal); G93.41 Metabolic encephalopathy; I46.9 Cardiac arrest, cause unspecified; J15.9 Unspecified bacterial pneumonia; K76.7 Hepatorenal syndrome; J15.0 Pneumonia due to Klebsiella pneumoniae; C22.0 Liver cell carcinoma; D68.9 Coagulation defect, unspecified; E87.0 Hyperosmolality and hypernatremia; E87.1 Hypo-osmolality and hyponatremia; J95.851 Ventilator associated pneumonia; J98.11 Atelectasis; N17.9 Acute kidney failure, unspecified; N39.0 Urinary tract infection, site not specified; K70.40 Alcoholic hepatic failure without coma; K70.30 Alcoholic cirrhosis of liver without ascites; D69.59 Other secondary thrombocytopenia; E03.9 Hypothyroidism, unspecified; E11.22 Type 2 diabetes mellitus with diabetic chronic kidney disease; Z78.1 Physical restraint status; E11.51 Type 2 diabetes mellitus with diabetic peripheral angiopathy without gangrene; E66.9 Obesity, unspecified; Z68.27 Body mass index [BMI] 27.0-27.9, adult; E78.00 Pure hypercholesterolemia, unspecified; E78.5 Hyperlipidemia, unspecified; E83.41 Hypermagnesemia; F10.20 Alcohol dependence, uncomplicated; I12.9 Hypertensive chronic kidney disease with stage 1 through stage 4 chronic kidney disease, or unspecified chronic kidney disease; I16.0 Hypertensive urgency; K27.9 Peptic ulcer, site unspecified, unspecified as acute or chronic, without hemorrhage or perforation; K52.9 Noninfective gastroenteritis and colitis, unspecified; N18.9 Chronic kidney disease, unspecified; R31.9 Hematuria, unspecified; Y84.8 Other medical procedures as the cause of abnormal reaction of the patient, or of later complication, without mention of misadventure at the time of the procedure; Z79.4 Long term (current) use of insulin; Z79.899 Other long term (current) drug therapy; Z92.21 Personal history of antineoplastic chemotherapy; E16.2 Hypoglycemia, unspecified; H26.9 Unspecified cataract; K29.70 Gastritis, unspecified, without bleeding; E11.65 Type 2 diabetes mellitus with hyperglycemia; R33.9 Retention of urine, unspecified; E87.5 Hyperkalemia

== ENCOUNTER 2019-02-01 15:45 | Inpatient (IN) | payer MEDICARE ==
[2019-02-01 18:56] VITALS: BMI 31.3
[2019-02-01] MEDS ORDERED: Acetaminophen 650mg/20.3ml solution UD PO PRN (20:20)
[2019-02-01] MEDS ORDERED: Acetylcysteine 20% Inhal Soln (4ml) IH SCH (20:30)
[2019-02-01] MEDS: Albuterol 0.083% Inhal Sol (2.5 mg/3 mL) UD IH SCH (21:03)
[2019-02-01] MEDS: Insulin Lispro (humaLOG) 100 Units/ml Inj SC SCH (22:13)
[2019-02-01] MEDS ORDERED: DiphenhydrAMINE 50 mg/ml Inj IVP PRN (22:47)
[2019-02-02] MEDS ORDERED: DiphenhydrAMINE 50 mg/ml Inj IVP SCH
[2019-02-02] MEDS: Levothyroxine 50 MCG TAB PO SCH ×2 (05:45→12:35)
[2019-02-02] MEDS: Insulin Lispro (humaLOG) 100 Units/ml Inj SC SCH ×4 (06:32→21:54)
[2019-02-02] MEDS: Albuterol 0.083% Inhal Sol (2.5 mg/3 mL) UD IH SCH ×2 (07:10→19:03)
[2019-02-02] MEDS: Acetylcysteine 20% Inhal Soln (4ml) IH SCH ×2 (07:10→19:04)
[2019-02-02 07:28] LABS: HEMOGLOBIN 8.4 g/dL (12.0-18.0); MEAN CELL VOLUME 112.6 fl (80.0-94.0); MEAN CORPUSCULAR HGB CONC 34.7 g/dL (33.0-37.0); RBC 2.16 Mil/uL (4.40-5.90); RED CELL DISTRIBUTION WIDTH 15.7 % (11.5-14.5); WHITE BLOOD COUNT 4.6 K/uL (4.8-10.8)
[2019-02-02] MEDS ORDERED: Glucagon Recombinant 1 mg Inj IM PRN (07:44)
[2019-02-02] MEDS ORDERED: Dextrose 50% SYRINGE Inj (50 ml) IVP PRN (07:44)
[2019-02-02 07:50] LABS: ALB/GLOB RATIO 0.5 (1.0-2.1); ALBUMIN 1.9 g/dL (3.5-5.0); ALT/SGPT 49 U/L (21-72); AST/SGOT 67 U/L (17-59); BLOOD UREA NITROGEN 15 mg/dl (9-20); CALCIUM 8.2 mg/dL (8.4-10.2); GFR NON-AFRICAN AMERICAN > 60
[2019-02-02] MEDS: Pantoprazole 40 mg Susp UD PO SCH (08:50)
--- NOTE | 2019-02-02 13:27 | CP.PCM.CON ---
History of Present Illness - History of Present Illness History of Present Illness: Nephrology Consultation Note: Assessment: Stable Acute Kidney Injury (N17.9) resolved DM, obesity HCC on chemo respi failure, hepatic enceph Plan No acute need for renal replacement therapy at this time. Maintain hemodynamics stable. Avoid hypotension. Patient on aldactone as raas anthony Monitor Input/Output, daily weights and renal function with basic metabolic panel will add lasix 20 mg/d. can uptitrate further as needed/tolerated by BP Dose meds/antibiotics for GFR >60 Glycemic control Further work up/management as per primary team Thanks for allowing me to participate in care of your patient. Will follow patient with you further PRN. Please call if any Qs Dr Binu Worley Office: [phone] Chief Complaint; none at this time Reason for consult: Acute Kidney Injury follow up HPI: Pt is a 69 M with hx of diabetes Mellitus ( years), obesity HCC on chemo recently admitted to hospital ICU with respi failure, hepatic enceph. also had Alex with peaked cr 1.8, also with lytes abnormalities which improved. pt d/c to rehab and hence renal consulted for follow up Denies OTC/herbal meds or NSAIDs No recent iodinated contrast exposure. pt feels better ROS: has leg swelling Cardiovascular: No chest pain. Pulmonary: No shortness of breath Gastrointestinal: denies abdominal pain No nausea. No vomiting. Genitourinary: No pain while urinating. Denies blood in urine. All other negative except as mentioned in HPI Physical Examination: General Appearance: Comfortable, in no acute respiratory distress, co-operative . obese Vitals reviewed and noted as below Head; Atraumatic, normocephalic ENT: no ulcers no thrush. Tongue is midline. Oropharynx: no rash or ulcers. EYES: Pupils are equal, round and reactive to light accommodation. Eye muscles and extraocular movement intact. Sclera is anicteric. Neck; supple no lymphadenopathy, no thyromegaly or bruit Lungs: Normal respiratory rate/effort. Breath sounds bilateral somewhat reduced at bases Heart: Normal rate. s1s2 normal. No rub or gallop. Extremities: 2+ edema. No varicose veins Neurological: Patient is alert, awake and oriented to person, place and time. No focal deficit. Strength bilateral appropriate and equal Skin: Warm and dry. Normal turgor. No rash. Palpitation: Normal elasticity for age Abdomen: Abdomen is soft. Bowel sounds +. There is no abdominal tenderness, no guarding/rigidity no organomegaly Psych: normal insight and normal affect/mood MSK: no joint tenderness or swelling. Digits and nails normal, no deformity : kidney or bladder not palpable Labs/imaging reviewed. Past medical history, past surgical history, family history, social history, allergy reviewed and noted as below Family hx: no hx of CKD. Rest non-contributory UA 30 prot normal renal imaging Past Patient History - Infectious Disease Hx of Infectious Diseases: None - Past Medical History & Family History Past Medical History?: Yes - Past Social History Smoking Status: Never Smoked - CARDIAC Hx Hypercholesterolemia: Yes Hx Hypertension: Yes Hx Pacemaker: No - PULMONARY Hx Respiratory Disorders: No Other/Comment: h/o acute respiratory failure, bacterial pneumonia. 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 - GENITOURINARY/GYNECOLOGICAL Hx Genitourinary Disorders: No - PSYCHIATRIC Hx Substance Use: No - SURGICAL HISTORY Hx Mastectomy: No - ANESTHESIA Hx Anesthesia: Yes Hx Anesthesia Reactions: No Hx Malignant Hyperthermia: No Has any member of the family had a problem w/ anesthesia?: No Meds Allergies/Adverse Reactions: Allergies Allergy/AdvReac Type Severity Reaction Status Date / Time No Known Allergies Allergy Verified 02/01/19 20:20 - Medications Medications: Current Medications Acetaminophen (Tylenol 650mg/20.3ml Solution Ud) 650 mg PO Q6 PRN PRN Reason: Temp >100.4 Acetylcysteine (Acetylcysteine 20%) 2 ml IH RBID [facility] Last Admin: 02/02/19 07:10 Dose: 2 ml Albuterol Sulfate (Albuterol 0.083% Inhal Mana (2.5 Mg/3 Ml) Ud) 2.5 mg IH RBID [facility] Last Admin: 02/02/19 07:10 Dose: 2.5 mg Benzonatate (Tessalon Perles) 100 mg PO Q8 PRN PRN Reason: Cough Last Admin: 02/02/19 08:51 Dose: 100 mg Carvedilol (Coreg) 6.25 mg PO Q12 [facility] Last Admin: 02/02/19 08:51 Dose: 6.25 mg Dextrose (Dextrose 50% Inj) 50 ml IVP STAT PRN PRN Reason: hypoglycemia protocol Dextrose (Glutose 15) 15 gm PO ONCE PRN PRN Reason: Hypoglycemia protocol Diphenhydramine HCl (Benadryl) 50 mg IVP Q6 PRN PRN Reason: Agitation Folic Acid (Folic Acid) 1 mg PO DAILY [facility] Last Admin: 02/02/19 08:53 Dose: 1 mg Furosemide (Lasix) 20 mg PO DAILY [facility] Glucagon (Glucagen Diagnostic Kit) 1 mg IM ONCE PRN PRN Reason: Hypoglycemia protocol Haloperidol Lactate (Haldol) 5 mg IM Q6 PRN PRN Reason: Agitation Insulin Human Lispro (Humalog) 0 units SC [facility]; Protocol Last Admin: 02/02/19 11:30 Dose: 2 units Lactulose (Enulose) 20 gm PO Q12 [facility] Last Admin: 02/02/19 08:53 Dose: 20 gm Levothyroxine Sodium (Synthroid) 50 mcg PO DAILY [facility] Last Admin: 02/02/19 12:35 Dose: Not Given Pantoprazole Sodium (Protonix Susp) 40 mg PO DAILY [facility] Last Admin: 02/02/19 08:50 Dose: 40 mg Spironolactone (Aldactone) 50 mg PO DAILY [facility] Last Admin: 02/02/19 08:51 Dose: 50 mg Tamsulosin HCl (Flomax) 0.4 mg PO DAILY [facility] Last Admin: 02/02/19 08:53 Dose: 0.4 mg Thiamine HCl (Vitamin B1 Tab) 100 mg PO DAILY [facility] Last Admin: 02/02/19 08:53 Dose: 100 mg Results - Vital Signs Recent Vital Signs: Last Vital Signs Temp 98.1 F 02/01/19 19:00 Pulse 81 02/02/19 08:51 Resp 20 02/01/19 20:08 BP 113/60 02/02/19 08:51 Pulse Ox 99 02/02/19 08:22 - Labs Result Diagrams: 02/02/19 05:30 02/02/19 05:30 Labs: Laboratory Results - last 24 hr 02/01/19 02/02/19 02/02/19 21:21 05:03 05:30 WBC 4.6 L RBC 2.16 L Hgb 8.4 L Hct 24.3 L MCV 112.6 H MCH 39.0 H MCHC 34.7 RDW 15.7 H Plt Count 67 L Sodium Potassium Chloride Carbon Dioxide Anion Gap BUN Creatinine Est GFR ( Amer) Est GFR (Non-Af Amer) POC Glucose (mg/dL) 167 H 113 H Random Glucose Calcium Magnesium Total Bilirubin AST ALT Alkaline Phosphatase Ammonia Total Protein Albumin Globulin Albumin/Globulin Ratio 02/02/19 02/02/19 02/02/19 05:30 05:30 11:15 WBC RBC Hgb Hct MCV MCH MCHC RDW Plt Count Sodium 138 Potassium 4.1 Chloride 110 H Carbon Dioxide 26 Anion Gap 6 L BUN 15 Creatinine 0.7 L Est GFR ( Amer) > 60 Est GFR (Non-Af Amer) > 60 POC Glucose (mg/dL) 248 H Random Glucose 101 Calcium 8.2 L Magnesium 1.7 Total Bilirubin 1.6 H AST 67 H ALT 49 Alkaline Phosphatase 180 H Ammonia 66 H D Total Protein 5.6 L Albumin 1.9 L Globulin 3.6 Albumin/Globulin Ratio 0.5 L
--- NOTE | 2019-02-02 15:13 | PCM.CPAPS ---
History of Present Illness - History of Present Illness History of Present Illness: 69 year old thai speaking male admitted to acute rehab with history of hepatic encephalopathy , alcoholic cirrhosis of liver, liver ca, htn, dm , gastritis Review of Systems - Musculoskeletal Musculoskeletal: Muscle Weakness Past Patient History - Infectious Disease Hx of Infectious Diseases: None - Past Medical History & Family History Past Medical History?: Yes - Past Social History Smoking Status: Never Smoked - CARDIAC Hx Hypercholesterolemia: Yes Hx Hypertension: Yes Hx Pacemaker: No - PULMONARY Hx Respiratory Disorders: No Other/Comment: h/o acute respiratory failure, bacterial pneumonia. 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 - GENITOURINARY/GYNECOLOGICAL Hx Genitourinary Disorders: No - PSYCHIATRIC Hx Substance Use: No - SURGICAL HISTORY Hx Mastectomy: No - ANESTHESIA Hx Anesthesia: Yes Hx Anesthesia Reactions: No Hx Malignant Hyperthermia: No Has any member of the family had a problem w/ anesthesia?: No Meds Allergies/Adverse Reactions: Allergies Allergy/AdvReac Type Severity Reaction Status Date / Time No Known Allergies Allergy Verified 02/01/19 20:20 - Medications Medications: Current Medications Acetaminophen (Tylenol 650mg/20.3ml Solution Ud) 650 mg PO Q6 PRN PRN Reason: Temp >100.4 Acetylcysteine (Acetylcysteine 20%) 2 ml IH RBID [facility] Last Admin: 02/02/19 07:10 Dose: 2 ml Albuterol Sulfate (Albuterol 0.083% Inhal Mana (2.5 Mg/3 Ml) Ud) 2.5 mg IH RBID [facility] Last Admin: 02/02/19 07:10 Dose: 2.5 mg Benzonatate (Tessalon Perles) 100 mg PO Q8 PRN PRN Reason: Cough Last Admin: 02/02/19 08:51 Dose: 100 mg Carvedilol (Coreg) 6.25 mg PO Q12 [facility] Last Admin: 02/02/19 08:51 Dose: 6.25 mg Dextrose (Dextrose 50% Inj) 50 ml IVP STAT PRN PRN Reason: hypoglycemia protocol Dextrose (Glutose 15) 15 gm PO ONCE PRN PRN Reason: Hypoglycemia protocol Diphenhydramine HCl (Benadryl) 50 mg IVP Q6 PRN PRN Reason: Agitation Folic Acid (Folic Acid) 1 mg PO DAILY [facility] Last Admin: 02/02/19 08:53 Dose: 1 mg Furosemide (Lasix) 20 mg PO DAILY [facility] Glucagon (Glucagen Diagnostic Kit) 1 mg IM ONCE PRN PRN Reason: Hypoglycemia protocol Haloperidol Lactate (Haldol) 5 mg IM Q6 PRN PRN Reason: Agitation Insulin Human Lispro (Humalog) 0 units SC [facility]; Protocol Last Admin: 02/02/19 11:30 Dose: 2 units Lactulose (Enulose) 20 gm PO Q12 [facility] Last Admin: 02/02/19 08:53 Dose: 20 gm Levothyroxine Sodium (Synthroid) 50 mcg PO DAILY [facility] Last Admin: 02/02/19 12:35 Dose: Not Given Pantoprazole Sodium (Protonix Susp) 40 mg PO DAILY [facility] Last Admin: 02/02/19 08:50 Dose: 40 mg Spironolactone (Aldactone) 50 mg PO DAILY [facility] Last Admin: 02/02/19 08:51 Dose: 50 mg Tamsulosin HCl (Flomax) 0.4 mg PO DAILY [facility] Last Admin: 02/02/19 08:53 Dose: 0.4 mg Thiamine HCl (Vitamin B1 Tab) 100 mg PO DAILY [facility] Last Admin: 02/02/19 08:53 Dose: 100 mg Physical Exam - Constitutional Appears: Well - Head Exam Head Exam: ATRAUMATIC, NORMAL INSPECTION, NORMOCEPHALIC - Eye Exam Eye Exam: EOMI, Normal appearance, PERRL Pupil Exam: NORMAL ACCOMODATION, PERRL - ENT Exam ENT Exam: Mucous Membranes Moist, Normal Exam - Neck Exam Neck exam: Positive for: Normal Inspection - Respiratory Exam Respiratory Exam: Clear to Auscultation Bilateral, NORMAL BREATHING PATTERN - Cardiovascular Exam Cardiovascular Exam: REGULAR RHYTHM - GI/Abdominal Exam GI & Abdominal Exam: Normal Bowel Sounds - Rectal Exam Rectal Exam: NORMAL INSPECTION - Exam External exam: NORMAL EXTERNAL EXAM - Extremities Exam Extremities exam: Positive for: normal inspection - Back Exam Back exam: NORMAL INSPECTION - Neurological Exam Neurological exam: Alert Additional comments: motor both upper and lower extremities 3/5 problems with balance and coordination - Psychiatric Exam Psychiatric exam: Normal Affect - Skin Skin Exam: Dry, Normal Color Results - Vital Signs Recent Vital Signs: Last Vital Signs Temp 98 F 02/02/19 10:00 Pulse 81 02/02/19 10:00 Resp 20 02/02/19 10:00 BP 113/60 02/02/19 10:00 Pulse Ox 98 02/02/19 10:00 - Labs Result Diagrams: 02/02/19 05:30 02/02/19 05:30 Labs: Laboratory Results - last 24 hr 02/01/19 02/02/19 02/02/19 21:21 05:03 05:30 WBC 4.6 L RBC 2.16 L Hgb 8.4 L Hct 24.3 L MCV 112.6 H MCH 39.0 H MCHC 34.7 RDW 15.7 H Plt Count 67 L Sodium Potassium Chloride Carbon Dioxide Anion Gap BUN Creatinine Est GFR ( Amer) Est GFR (Non-Af Amer) POC Glucose (mg/dL) 167 H 113 H Random Glucose Calcium Magnesium Total Bilirubin AST ALT Alkaline Phosphatase Ammonia Total Protein Albumin Globulin Albumin/Globulin Ratio 02/02/19 02/02/19 02/02/19 05:30 05:30 11:15 WBC RBC Hgb Hct MCV MCH MCHC RDW Plt Count Sodium 138 Potassium 4.1 Chloride 110 H Carbon Dioxide 26 Anion Gap 6 L BUN 15 Creatinine 0.7 L Est GFR ( Amer) > 60 Est GFR (Non-Af Amer) > 60 POC Glucose (mg/dL) 248 H Random Glucose 101 Calcium 8.2 L Magnesium 1.7 Total Bilirubin 1.6 H AST 67 H ALT 49 Alkaline Phosphatase 180 H Ammonia 66 H D Total Protein 5.6 L Albumin 1.9 L Globulin 3.6 Albumin/Globulin Ratio 0.5 L Assessment & Plan (1) Cholelithiasis Assessment and Plan: plan for physical, occupational, rec and speech therapy program goals for MOdified Independent length of stay 2 to 3 weeks Status: Acute (2) Cirrhosis of liver Status: Acute Priority: High (3) Coagulopathy Status: Acute (4) Colitis Status: Acute (5) DM type 2 (diabetes mellitus, type 2) Status: Acute (6) Diabetes mellitus Status: Acute Priority: High (7) Encephalopathy Status: Acute - Functional Status Prior to Admission: patient was independent Current Status: now needs assistance in adls, transfers and gait Impairment Code: hepatic encephalotphy K72.91 /16
--- NOTE | 2019-02-02 15:21 | PCM.OPOC ---
Physiatry Overall Plan of Care - Overall Plan of Care Estimated Length of Stay in Weeks: 3 Rehab Impairment: Mobility, Gait, Cognition, Speech, Balance, Coordination Etiologic Diagnosis: Other Rehab/Medical Prognosis: Fair - Anticipated Interventions Physical Therapy:: Yes Number of Hours: 1 Number of times per week: 5 Number of Week(s) Duration: 3 Occupational Therapy:: Yes Number of Hours: 1 Number of times per week: 5 Number of Week(s) Duration: 3 Speech Therapy:: Yes Number of Hours: 1 Number of times per week: 5 Number of Week(s) Duration: 3 Recreational Therapy:: Yes Number of Hours: 1 Number of times per week: 5 Number of Week(s) Duration: 3 - Therapy Goals Bed Mobility: Independent Ambulation: Independent Functional Positional Changes:: Independent - Functional Status Prior to Admission: independent Current Status: now needs assistance in adls, transfers and gait - Functional Outcomes Functional Outcomes: fair - Discharge Plan Identification of Barriers to Discharge: Home Situation Discharge Destination: Home
--- NOTE | 2019-02-02 18:28 | CP.PCM.CON ---
History of Present Illness - History of Present Illness History of Present Illness: 69 year old male with a history of HTN, HL, liver cirrhosis, hepatocellular carcinoma, transferred to TCU after treatment for hepatic encephalopathy, respiratory failure, and pancytopenia. He reports to feeling better. He feels his mind is more clear and denies abnormal bleeding and bruising. Past medical history: HTN, HL, liver cirrhosis, HCC Past surgical history: Denies Family history: Denies hematologic and oncologic problems Social history: Denies tobacco, alcohol, and illicit drug use. Allergies: NKA Review of systems: All remaining review of systems including HEENT, cardiovascular, respiratory, gastrointestinal, genitourinary, musculoskeletal, deramtologic, neurologic, and psychiatric are negative unless mentioned in the HPI. Past Patient History - Infectious Disease Hx of Infectious Diseases: None - Past Medical History & Family History Past Medical History?: Yes - Past Social History Smoking Status: Never Smoked - CARDIAC Hx Hypercholesterolemia: Yes Hx Hypertension: Yes Hx Pacemaker: No - PULMONARY Hx Respiratory Disorders: No Other/Comment: h/o acute respiratory failure, bacterial pneumonia. 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 - GENITOURINARY/GYNECOLOGICAL Hx Genitourinary Disorders: No - PSYCHIATRIC Hx Substance Use: No - SURGICAL HISTORY Hx Mastectomy: No - ANESTHESIA Hx Anesthesia: Yes Hx Anesthesia Reactions: No Hx Malignant Hyperthermia: No Has any member of the family had a problem w/ anesthesia?: No Meds Allergies/Adverse Reactions: Allergies Allergy/AdvReac Type Severity Reaction Status Date / Time No Known Allergies Allergy Verified 02/01/19 20:20 - Medications Medications: Current Medications Acetaminophen (Tylenol 650mg/20.3ml Solution Ud) 650 mg PO Q6 PRN PRN Reason: Temp >100.4 Acetylcysteine (Acetylcysteine 20%) 2 ml IH RBID [facility] Last Admin: 02/02/19 07:10 Dose: 2 ml Albuterol Sulfate (Albuterol 0.083% Inhal Mana (2.5 Mg/3 Ml) Ud) 2.5 mg IH RBID [facility] Last Admin: 02/02/19 07:10 Dose: 2.5 mg Benzonatate (Tessalon Perles) 100 mg PO Q8 PRN PRN Reason: Cough Last Admin: 02/02/19 17:37 Dose: 100 mg Carvedilol (Coreg) 6.25 mg PO Q12 [facility] Dextrose (Dextrose 50% Inj) 50 ml IVP STAT PRN PRN Reason: hypoglycemia protocol Dextrose (Glutose 15) 15 gm PO ONCE PRN PRN Reason: Hypoglycemia protocol Diphenhydramine HCl (Benadryl) 50 mg IVP Q6 PRN PRN Reason: Agitation Folic Acid (Folic Acid) 1 mg PO DAILY [facility] Last Admin: 02/02/19 08:53 Dose: 1 mg Furosemide (Lasix) 20 mg PO DAILY [facility] Last Admin: 02/02/19 17:32 Dose: 20 mg Glucagon (Glucagen Diagnostic Kit) 1 mg IM ONCE PRN PRN Reason: Hypoglycemia protocol Haloperidol Lactate (Haldol) 5 mg IM Q6 PRN PRN Reason: Agitation Insulin Human Lispro (Humalog) 0 units SC [facility]; Protocol Last Admin: 02/02/19 17:31 Dose: 1 units Lactulose (Enulose) 20 gm PO Q12 [facility] Last Admin: 02/02/19 08:53 Dose: 20 gm Levothyroxine Sodium (Synthroid) 50 mcg PO DAILY [facility] Last Admin: 02/02/19 12:35 Dose: Not Given Pantoprazole Sodium (Protonix Susp) 40 mg PO DAILY [facility] Last Admin: 02/02/19 08:50 Dose: 40 mg Spironolactone (Aldactone) 50 mg PO DAILY [facility] Last Admin: 02/02/19 08:51 Dose: 50 mg Tamsulosin HCl (Flomax) 0.4 mg PO DAILY [facility] Last Admin: 02/02/19 08:53 Dose: 0.4 mg Thiamine HCl (Vitamin B1 Tab) 100 mg PO DAILY [facility] Last Admin: 02/02/19 08:53 Dose: 100 mg Physical Exam - Head Exam Head Exam: ATRAUMATIC - Eye Exam Eye Exam: Normal appearance - ENT Exam ENT Exam: Mucous Membranes Dry - Respiratory Exam Respiratory Exam: NORMAL BREATHING PATTERN - Cardiovascular Exam Cardiovascular Exam: +S1, +S2 - GI/Abdominal Exam GI & Abdominal Exam: Normal Bowel Sounds - Extremities Exam Extremities exam: Positive for: pedal edema - Neurological Exam Neurological exam: Oriented x3 - Psychiatric Exam Psychiatric exam: Normal Affect, Normal Mood - Skin Skin Exam: Warm Results - Vital Signs Recent Vital Signs: Last Vital Signs Temp 98 F 02/02/19 10:00 Pulse 81 02/02/19 10:00 Resp 20 02/02/19 10:00 BP 120/80 02/02/19 17:32 Pulse Ox 98 02/02/19 10:00 - Labs Result Diagrams: 02/05/19 06:00 02/05/19 06:00 Labs: Laboratory Results - last 24 hr 02/01/19 02/02/19 02/02/19 21:21 05:03 05:30 WBC 4.6 L RBC 2.16 L Hgb 8.4 L Hct 24.3 L MCV 112.6 H MCH 39.0 H MCHC 34.7 RDW 15.7 H Plt Count 67 L Sodium Potassium Chloride Carbon Dioxide Anion Gap BUN Creatinine Est GFR ( Amer) Est GFR (Non-Af Amer) POC Glucose (mg/dL) 167 H 113 H Random Glucose Calcium Magnesium Total Bilirubin AST ALT Alkaline Phosphatase Ammonia Total Protein Albumin Globulin Albumin/Globulin Ratio 02/02/19 02/02/19 02/02/19 05:30 05:30 11:15 WBC RBC Hgb Hct MCV MCH MCHC RDW Plt Count Sodium 138 Potassium 4.1 Chloride 110 H Carbon Dioxide 26 Anion Gap 6 L BUN 15 Creatinine 0.7 L Est GFR ( Amer) > 60 Est GFR (Non-Af Amer) > 60 POC Glucose (mg/dL) 248 H Random Glucose 101 Calcium 8.2 L Magnesium 1.7 Total Bilirubin 1.6 H AST 67 H ALT 49 Alkaline Phosphatase 180 H Ammonia 66 H D Total Protein 5.6 L Albumin 1.9 L Globulin 3.6 Albumin/Globulin Ratio 0.5 L Assessment & Plan (1) Pancytopenia Assessment and Plan: liver cirrhosis splenic sequestration transfusion support PRN Status: Acute (2) Hepatocellular carcinoma Assessment and Plan: outpatient treatment Thank you for this interesting consult. Status: Acute
[2019-02-03] MEDS: Levothyroxine 50 MCG TAB PO SCH (06:06)
[2019-02-03] MEDS: Insulin Lispro (humaLOG) 100 Units/ml Inj SC SCH ×4 (06:34→21:36)
[2019-02-03] MEDS: Acetylcysteine 20% Inhal Soln (4ml) IH SCH (07:11)
[2019-02-03] MEDS: Albuterol 0.083% Inhal Sol (2.5 mg/3 mL) UD IH SCH (07:11)
[2019-02-03] MEDS: Pantoprazole 40 mg Susp UD PO SCH (08:24)
[2019-02-03] MEDS: Albuterol-Ipratrop 3 mg / 0.5 (3 ml) UD INH SCH ×2 (15:14→19:16)
--- NOTE | 2019-02-03 23:46 | CP.PCM.HP ---
History of Present Illness - History of Present Illness History of Present Illness: CC: Physical Decondtioning, generalized weakness and dysphagia HPI 69 years old male patient with history of alcoholic cirrhosis and liver cancer was admitted to ICU for hepatic encephalopathy with ammonia level of 360 and acute renal failure adding to metabolic encephalopathy with prolonged intubation. Patient extubated currently weak and having difficulty swallowing. Patient admitted to acute rehab for PT OT speech therapy and speech for swallow training. Present on Admission - Present on Admission Any Indicators Present on Admission: No Review of Systems - Review of Systems All systems: reviewed and no additional remarkable complaints except Past Patient History - Infectious Disease Hx of Infectious Diseases: None - Past Medical History & Family History Past Medical History?: Yes Past Family History: Reviewed and not pertinent - Past Social History Smoking Status: Never Smoked Alcohol: > 2 Drinks/Day Drugs: Denies - CARDIAC Hx Hypercholesterolemia: Yes Hx Hypertension: Yes Hx Pacemaker: No - PULMONARY Hx Respiratory Disorders: No Other/Comment: h/o acute respiratory failure, bacterial pneumonia. 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 - GENITOURINARY/GYNECOLOGICAL Hx Genitourinary Disorders: No - PSYCHIATRIC Hx Substance Use: No - SURGICAL HISTORY Hx Mastectomy: No - ANESTHESIA Hx Anesthesia: Yes Hx Anesthesia Reactions: No Hx Malignant Hyperthermia: No Has any member of the family had a problem w/ anesthesia?: No Meds Allergies/Adverse Reactions: Allergies Allergy/AdvReac Type Severity Reaction Status Date / Time No Known Allergies Allergy Verified 02/01/19 20:20 Physical Exam - Constitutional Appears: No Acute Distress, Chronically Ill - Head Exam Head Exam: ATRAUMATIC, NORMAL INSPECTION, NORMOCEPHALIC - Eye Exam Eye Exam: EOMI, Normal appearance, PERRL Pupil Exam: NORMAL ACCOMODATION, PERRL - ENT Exam ENT Exam: Mucous Membranes Moist, Normal Exam - Neck Exam Neck exam: Positive for: Normal Inspection - Respiratory Exam Respiratory Exam: Clear to Auscultation Bilateral, NORMAL BREATHING PATTERN - Cardiovascular Exam Cardiovascular Exam: REGULAR RHYTHM, +S1, +S2 - GI/Abdominal Exam GI & Abdominal Exam: Normal Bowel Sounds, Soft. absent: Tenderness - Extremities Exam Extremities exam: Positive for: pedal edema Additional comments: Edema to upper and lower extremity, pitting - Back Exam Back exam: NORMAL INSPECTION - Neurological Exam Neurological exam: Abnormal Gait, CN II-XII Intact, Oriented x3, Reflexes Normal - Psychiatric Exam Psychiatric exam: Normal Affect, Normal Mood - Skin Skin Exam: Dry, Intact, Normal Color, Warm Results - Vital Signs Recent Vital Signs: Last Vital Signs Temp 98.1 F 02/03/19 10:00 Pulse 76 02/03/19 21:38 Resp 19 02/03/19 10:00 BP 102/58 L 02/03/19 21:38 Pulse Ox 99 02/03/19 18:29 - Labs Result Diagrams: 02/05/19 06:00 02/05/19 06:00 Labs: Laboratory Results - last 24 hr 02/03/19 02/03/19 02/03/19 06:06 11:00 16:10 POC Glucose (mg/dL) 131 H 243 H 154 H Assessment & Plan (1) Physical deconditioning Status: Acute (2) Generalized weakness Status: Acute (3) DM type 2 (diabetes mellitus, type 2) Status: Acute (4) Liver mass Status: Acute (5) Thrombocytopenia Status: Acute (6) HTN (hypertension) Status: Chronic Priority: Medium (7) Hepatic encephalopathy Status: Resolved Priority: High - Assessment and Plan (Free Text) Plan: Continue medication as now Physical therapy occupational therapy speech, speech therapy and swallow trainin g by speech Follow-up with oncologist.
--- NOTE | 2019-02-03 23:47 | CP.PCM.PN ---
Subjective - Date & Time of Evaluation Date of Evaluation: 02/03/19 Time of Evaluation: 19:15 - Subjective Subjective: Seen and examined at the bedside. No new complaints. Objective - Vital Signs/Intake and Output Vital Signs (last 24 hours): Temp Pulse Resp BP Pulse Ox 98.1 F 76 19 102/58 L 99 02/03/19 10:00 02/03/19 21:38 02/03/19 10:00 02/03/19 21:38 02/03/19 18:29 - Medications Medications: Current Medications Acetaminophen (Tylenol 650mg/20.3ml Solution Ud) 650 mg PO Q6 PRN PRN Reason: Temp >100.4 Albuterol/Ipratropium (Duoneb 3 Mg/0.5 Mg (3 Ml) Ud) 3 ml INH RQ6 [facility] Last Admin: 02/03/19 19:16 Dose: 3 ml Benzonatate (Tessalon Perles) 100 mg PO Q8 PRN PRN Reason: Cough Last Admin: 02/03/19 18:35 Dose: 100 mg Carvedilol (Coreg) 6.25 mg PO Q12 [facility] Last Admin: 02/03/19 21:38 Dose: 6.25 mg Dextrose (Dextrose 50% Inj) 50 ml IVP STAT PRN PRN Reason: hypoglycemia protocol Dextrose (Glutose 15) 15 gm PO ONCE PRN PRN Reason: Hypoglycemia protocol Diphenhydramine HCl (Benadryl) 50 mg IVP Q6 PRN PRN Reason: Agitation Folic Acid (Folic Acid) 1 mg PO DAILY [facility] Last Admin: 02/03/19 08:25 Dose: 1 mg Furosemide (Lasix) 20 mg PO DAILY [facility] Last Admin: 02/03/19 08:25 Dose: 20 mg Glucagon (Glucagen Diagnostic Kit) 1 mg IM ONCE PRN PRN Reason: Hypoglycemia protocol Haloperidol Lactate (Haldol) 5 mg IM Q6 PRN PRN Reason: Agitation Insulin Human Lispro (Humalog) [facility]; Protocol Last Admin: 02/03/19 21:36 Dose: Not Given Lactulose (Enulose) 20 gm PO Q6 [facility] Last Admin: 02/03/19 18:06 Dose: 20 gm Levothyroxine Sodium (Synthroid) 50 mcg PO DAILY@0630 [facility] Last Admin: 02/03/19 06:06 Dose: 50 mcg Pantoprazole Sodium (Protonix Susp) 40 mg PO DAILY [facility] Last Admin: 02/03/19 08:24 Dose: 40 mg Spironolactone (Aldactone) 50 mg PO DAILY [facility] Last Admin: 02/03/19 08:25 Dose: 50 mg Tamsulosin HCl (Flomax) 0.4 mg PO DAILY [facility] Last Admin: 02/03/19 08:24 Dose: 0.4 mg Thiamine HCl (Vitamin B1 Tab) 100 mg PO DAILY [facility] Last Admin: 02/03/19 08:24 Dose: 100 mg - Labs Labs: 02/02/19 05:30 02/02/19 05:30 Assessment and Plan (1) Generalized weakness Status: Acute (2) Physical deconditioning Status: Acute (3) DM type 2 (diabetes mellitus, type 2) Status: Acute (4) Thrombocytopenia Status: Acute (5) 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
[2019-02-04] MEDS: Albuterol-Ipratrop 3 mg / 0.5 (3 ml) UD INH SCH ×4 (01:08→19:08)
[2019-02-04] MEDS: Levothyroxine 50 MCG TAB PO SCH (06:17)
[2019-02-04] MEDS: Insulin Lispro (humaLOG) 100 Units/ml Inj SC SCH ×4 (07:08→21:16)
[2019-02-04] MEDS: Pantoprazole 40 mg Susp UD PO SCH (08:57)
--- NOTE | 2019-02-04 10:38 | CP.PCM.PN ---
Subjective - Date & Time of Evaluation Date of Evaluation: 02/04/19 Time of Evaluation: 10:37 - Subjective Subjective: Patient is awake and conscious not in acute distress. Vital signs stable. Objective - Vital Signs/Intake and Output Vital Signs (last 24 hours): Temp Pulse Resp BP Pulse Ox 97.5 F L 77 20 100/58 L 97 02/04/19 10:00 02/04/19 10:00 02/04/19 10:00 02/04/19 10:00 02/04/19 10:00 - Medications Medications: Current Medications Acetaminophen (Tylenol 650mg/20.3ml Solution Ud) 650 mg PO Q6 PRN PRN Reason: Temp >100.4 Albuterol/Ipratropium (Duoneb 3 Mg/0.5 Mg (3 Ml) Ud) 3 ml INH RQ6 [facility] Last Admin: 02/04/19 07:10 Dose: 3 ml Benzonatate (Tessalon Perles) 100 mg PO Q8 PRN PRN Reason: Cough Last Admin: 02/04/19 05:15 Dose: 100 mg Carvedilol (Coreg) 6.25 mg PO Q12 [facility] Last Admin: 02/04/19 08:56 Dose: 6.25 mg Dextrose (Dextrose 50% Inj) 50 ml IVP STAT PRN PRN Reason: hypoglycemia protocol Dextrose (Glutose 15) 15 gm PO ONCE PRN PRN Reason: Hypoglycemia protocol Diphenhydramine HCl (Benadryl) 50 mg IVP Q6 PRN PRN Reason: Agitation Folic Acid (Folic Acid) 1 mg PO DAILY [facility] Last Admin: 02/04/19 08:55 Dose: 1 mg Furosemide (Lasix) 20 mg PO DAILY [facility] Last Admin: 02/04/19 08:56 Dose: 20 mg Glucagon (Glucagen Diagnostic Kit) 1 mg IM ONCE PRN PRN Reason: Hypoglycemia protocol Haloperidol Lactate (Haldol) 5 mg IM Q6 PRN PRN Reason: Agitation Insulin Human Lispro (Humalog) 0 units SC [facility]; Protocol Last Admin: 02/04/19 07:08 Dose: Not Given Lactulose (Enulose) 20 gm PO Q6 [facility] Last Admin: 02/04/19 05:15 Dose: 20 gm Levothyroxine Sodium (Synthroid) 50 mcg PO DAILY@0630 [facility] Last Admin: 02/04/19 06:17 Dose: 50 mcg Pantoprazole Sodium (Protonix Susp) 40 mg PO DAILY [facility] Last Admin: 02/04/19 08:57 Dose: 40 mg Spironolactone (Aldactone) 50 mg PO DAILY [facility] Last Admin: 02/04/19 08:55 Dose: 50 mg Tamsulosin HCl (Flomax) 0.4 mg PO DAILY [facility] Last Admin: 02/04/19 08:55 Dose: 0.4 mg Thiamine HCl (Vitamin B1 Tab) 100 mg PO DAILY [facility] Last Admin: 02/04/19 08:57 Dose: 100 mg - Labs Labs: 02/02/19 05:30 02/02/19 05:30 - Constitutional Appears: No Acute Distress - Eye Exam Eye Exam: Conjunctival injection - ENT Exam ENT Exam: Mucous Membranes Moist - Respiratory Exam Respiratory Exam: NORMAL BREATHING PATTERN. absent: Chest Wall Tenderness - Cardiovascular Exam Cardiovascular Exam: absent: Gallop, JVD, Rubs - GI/Abdominal Exam GI & Abdominal Exam: Soft, Normal Bowel Sounds - Extremities Exam Extremities Exam: absent: Calf Tenderness - Back Exam Back Exam: absent: CVA tenderness (L), CVA tenderness (R) - Neurological Exam Neurological Exam: Alert - Psychiatric Exam Psychiatric exam: Normal Affect - Skin Skin Exam: absent: Cyanosis Assessment and Plan - Assessment and Plan (Free Text) Assessment: Assessment: Stable Acute Kidney Injury (N17.9) resolved DM, obesity HCC on chemo S/P respi failure, hepatic enceph Kidney function stable continue monitoring electrolytes intermittently
--- NOTE | 2019-02-04 12:16 | CP.PCM.CON ---
History of Present Illness - History of Present Illness History of Present Illness: 69 yo male referred for management of liver cirrhosis. Patient on lactulose Q6h and developing diarrhea. However he is also prone to elevated ammonia level and encephelopathy. Had portocaval venous shunt in the past. Has elevated AFP and stable liver masses on CT for which he has been seen by Oncology. Review of Systems - Constitutional Constitutional: absent: Chills - EENT Eyes: absent: Blurred Vision Ears: absent: Ear Discharge Nose/Mouth/Throat: absent: Epistaxis - Cardiovascular Cardiovascular: absent: Chest Pain - Respiratory Respiratory: Dyspnea - Gastrointestinal Gastrointestinal: absent: Abdominal Pain - Genitourinary Genitourinary: absent: Change in Urinary Stream Past Patient History - Infectious Disease Hx of Infectious Diseases: None - Past Medical History & Family History Past Medical History?: Yes - Past Social History Smoking Status: Never Smoked - CARDIAC Hx Hypercholesterolemia: Yes Hx Hypertension: Yes Hx Pacemaker: No - PULMONARY Hx Respiratory Disorders: No Other/Comment: h/o acute respiratory failure, bacterial pneumonia. 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 - GENITOURINARY/GYNECOLOGICAL Hx Genitourinary Disorders: No - PSYCHIATRIC Hx Substance Use: No - SURGICAL HISTORY Hx Mastectomy: No - ANESTHESIA Hx Anesthesia: Yes Hx Anesthesia Reactions: No Hx Malignant Hyperthermia: No Has any member of the family had a problem w/ anesthesia?: No Meds Allergies/Adverse Reactions: Allergies Allergy/AdvReac Type Severity Reaction Status Date / Time No Known Allergies Allergy Verified 02/01/19 20:20 - Medications Medications: Current Medications Acetaminophen (Tylenol 650mg/20.3ml Solution Ud) 650 mg PO Q6 PRN PRN Reason: Temp >100.4 Albuterol/Ipratropium (Duoneb 3 Mg/0.5 Mg (3 Ml) Ud) 3 ml INH RQ6 [facility] Last Admin: 02/04/19 07:10 Dose: 3 ml Benzonatate (Tessalon Perles) 100 mg PO Q8 PRN PRN Reason: Cough Last Admin: 02/04/19 05:15 Dose: 100 mg Carvedilol (Coreg) 6.25 mg PO Q12 [facility] Last Admin: 02/04/19 08:56 Dose: 6.25 mg Dextrose (Dextrose 50% Inj) 50 ml IVP STAT PRN PRN Reason: hypoglycemia protocol Dextrose (Glutose 15) 15 gm PO ONCE PRN PRN Reason: Hypoglycemia protocol Diphenhydramine HCl (Benadryl) 50 mg IVP Q6 PRN PRN Reason: Agitation Folic Acid (Folic Acid) 1 mg PO DAILY [facility] Last Admin: 02/04/19 08:55 Dose: 1 mg Furosemide (Lasix) 20 mg PO DAILY [facility] Last Admin: 02/04/19 08:56 Dose: 20 mg Glucagon (Glucagen Diagnostic Kit) 1 mg IM ONCE PRN PRN Reason: Hypoglycemia protocol Haloperidol Lactate (Haldol) 5 mg IM Q6 PRN PRN Reason: Agitation Insulin Human Lispro (Humalog) 0 units SC ACHS [facility]; Protocol Last Admin: 02/04/19 07:08 Dose: Not Given Lactulose (Enulose) 20 gm PO TID [facility] Levothyroxine Sodium (Synthroid) 50 mcg PO DAILY@0630 [facility] Last Admin: 02/04/19 06:17 Dose: 50 mcg Rifaximin (Xifaxan) 550 mg PO BID [facility]; Protocol Spironolactone (Aldactone) 50 mg PO DAILY [facility] Last Admin: 02/04/19 08:55 Dose: 50 mg Tamsulosin HCl (Flomax) 0.4 mg PO DAILY [facility] Last Admin: 02/04/19 08:55 Dose: 0.4 mg Thiamine HCl (Vitamin B1 Tab) 100 mg PO DAILY [facility] Last Admin: 02/04/19 08:57 Dose: 100 mg Physical Exam - Constitutional Appears: No Acute Distress - Head Exam Head Exam: ATRAUMATIC - Eye Exam Eye Exam: Periorbital tenderness - ENT Exam ENT Exam: Normal Exam - Neck Exam Neck exam: Positive for: Normal Inspection - Respiratory Exam Respiratory Exam: absent: Respiratory Distress - Cardiovascular Exam Cardiovascular Exam: REGULAR RHYTHM - GI/Abdominal Exam GI & Abdominal Exam: Distended, Normal Bowel Sounds, Soft Results - Vital Signs Recent Vital Signs: Last Vital Signs Temp 97.5 F L 02/04/19 10:00 Pulse 77 02/04/19 10:00 Resp 20 02/04/19 10:00 BP 100/58 L 02/04/19 10:00 Pulse Ox 97 02/04/19 10:00 - Labs Result Diagrams: 02/02/19 05:30 02/02/19 05:30 Labs: Laboratory Results - last 24 hr 02/03/19 02/03/19 02/04/19 16:10 21:30 05:21 POC Glucose (mg/dL) 154 H 150 H 119 H 02/04/19 12:04 POC Glucose (mg/dL) 181 H Assessment & Plan (1) Cirrhosis of liver Assessment and Plan: Ammonia level now 62 though having diarrhea with each lactulose dose . Will taper lactulose to TID and start rifaximin 550 BID. Continue furosemide and aldactone . Will hold PPI. F/u with Oncology for liver masses and elevated AFP. Status: Acute Priority: High
[2019-02-05] MEDS: Albuterol-Ipratrop 3 mg / 0.5 (3 ml) UD INH SCH ×4 (00:59→19:20)
[2019-02-05] MEDS: Levothyroxine 50 MCG TAB PO SCH (06:07)
[2019-02-05 06:43] LABS: BASO % 0.7 % (0.0-2.0); EOS # 0.3 K/uL (0.0-0.7); EOS % 5.9 % (0.0-4.0); HEMOGLOBIN 8.6 g/dL (12.0-18.0); LYMPH % 21.7 % (20.0-40.0); MEAN CELL VOLUME 112.2 fl (80.0-94.0); MEAN CORPUSCULAR HGB CONC 34.8 g/dL (33.0-37.0); MEAN PLATELET VOLUME 9.8 fl (7.2-11.7); MONO # 0.8 K/uL (0.0-0.8); MONO % 18.2 % (0.0-10.0); NEUT # 2.3 K/uL (1.8-7.0); NEUT % 53.5 % (50.0-75.0); NRBC % 0.1 % (0.0-0.0); RBC 2.2 Mil/uL (4.40-5.90); RED CELL DISTRIBUTION WIDTH 15.3 % (11.5-14.5); WHITE BLOOD COUNT 4.4 K/uL (4.8-10.8)
[2019-02-05 07:01] LABS: BLOOD UREA NITROGEN 13 mg/dl (9-20); CALCIUM 8.1 mg/dL (8.4-10.2); GFR NON-AFRICAN AMERICAN > 60
[2019-02-05] MEDS: Insulin Lispro (humaLOG) 100 Units/ml Inj SC SCH ×4 (07:54→21:45)
[2019-02-05] MEDS: Pantoprazole 40 mg Susp UD PO SCH (09:08)
[2019-02-05] MEDS ORDERED: Barium Sulfate Susp 0.1% w/v, 0.1% w/w 450 mL Bottle PO ONE (10:20)
--- NOTE | 2019-02-05 17:59 | CP.PCM.PN ---
Subjective - Date & Time of Evaluation Date of Evaluation: 02/05/19 Time of Evaluation: 09:00 - Subjective Subjective: Patient with apparently less diarrhea today. Lactulose dosage reduced. Had swallowing study and tolerated bite size nectar sweetened diet Objective - Vital Signs/Intake and Output Vital Signs (last 24 hours): Temp Pulse Resp BP Pulse Ox 97.2 F L 77 22 108/63 100 02/05/19 07:33 02/05/19 13:43 02/05/19 07:33 02/05/19 13:43 02/05/19 13:43 - Medications Medications: Current Medications Acetaminophen (Tylenol 650mg/20.3ml Solution Ud) 650 mg PO Q6 PRN PRN Reason: Temp >100.4 Albuterol/Ipratropium (Duoneb 3 Mg/0.5 Mg (3 Ml) Ud) 3 ml INH RQ6 [facility] Last Admin: 02/05/19 13:10 Dose: Not Given Benzonatate (Tessalon Perles) 100 mg PO Q8 PRN PRN Reason: Cough Last Admin: 02/05/19 11:48 Dose: 100 mg Carvedilol (Coreg) 6.25 mg PO Q12 [facility] Last Admin: 02/05/19 09:05 Dose: Not Given Dextrose (Dextrose 50% Inj) 50 ml IVP STAT PRN PRN Reason: hypoglycemia protocol Dextrose (Glutose 15) 15 gm PO ONCE PRN PRN Reason: Hypoglycemia protocol Diphenhydramine HCl (Benadryl) 50 mg IVP Q6 PRN PRN Reason: Agitation Folic Acid (Folic Acid) 1 mg PO DAILY [facility] Last Admin: 02/05/19 09:07 Dose: 1 mg Furosemide (Lasix) 20 mg PO DAILY [facility] Last Admin: 02/05/19 09:07 Dose: Not Given Glucagon (Glucagen Diagnostic Kit) 1 mg IM ONCE PRN PRN Reason: Hypoglycemia protocol Haloperidol Lactate (Haldol) 5 mg IM Q6 PRN PRN Reason: Agitation Insulin Human Lispro (Humalog) 0 units SC ACHS [facility]; Protocol Last Admin: 02/05/19 17:00 Dose: Not Given Lactulose (Enulose) 20 gm PO TID [facility] Last Admin: 02/05/19 17:01 Dose: 20 gm Levothyroxine Sodium (Synthroid) 50 mcg PO DAILY@0630 [facility] Last Admin: 02/05/19 06:07 Dose: 50 mcg Pantoprazole Sodium (Protonix Susp) 40 mg PO DAILY [facility] Last Admin: 02/05/19 09:08 Dose: 40 mg Spironolactone (Aldactone) 50 mg PO DAILY [facility] Last Admin: 02/05/19 09:09 Dose: Not Given Tamsulosin HCl (Flomax) 0.4 mg PO DAILY [facility] Last Admin: 02/05/19 09:06 Dose: 0.4 mg Thiamine HCl (Vitamin B1 Tab) 100 mg PO DAILY [facility] Last Admin: 02/05/19 09:08 Dose: 100 mg - Labs Labs: 02/05/19 06:00 02/05/19 06:00 - Head Exam Head Exam: ATRAUMATIC - Eye Exam Eye Exam: Normal appearance - ENT Exam ENT Exam: Normal Exam - Cardiovascular Exam Cardiovascular Exam: REGULAR RHYTHM - GI/Abdominal Exam GI & Abdominal Exam: Soft, Normal Bowel Sounds Assessment and Plan (1) Cirrhosis of liver Assessment & Plan: Ammonia level in 30s. Continue current rifaximin/ lactulose regimen Status: Acute
--- NOTE | 2019-02-05 22:09 | CP.PCM.PN ---
Subjective - Date & Time of Evaluation Date of Evaluation: 02/04/19 Time of Evaluation: 19:00 - Subjective Subjective: Has some diarrhea Objective - Vital Signs/Intake and Output Vital Signs (last 24 hours): Temp Pulse Resp BP Pulse Ox 97.2 F L 84 22 110/61 100 02/05/19 07:33 02/05/19 21:44 02/05/19 07:33 02/05/19 21:44 02/05/19 13:43 - Medications Medications: Current Medications Acetaminophen (Tylenol 650mg/20.3ml Solution Ud) 650 mg PO Q6 PRN PRN Reason: Temp >100.4 Albuterol/Ipratropium (Duoneb 3 Mg/0.5 Mg (3 Ml) Ud) 3 ml INH RQ6 [facility] Last Admin: 02/05/19 19:20 Dose: 3 ml Benzonatate (Tessalon Perles) 100 mg PO Q8 PRN PRN Reason: Cough Last Admin: 02/05/19 11:48 Dose: 100 mg Carvedilol (Coreg) 6.25 mg PO Q12 [facility] Last Admin: 02/05/19 21:44 Dose: 6.25 mg Dextrose (Dextrose 50% Inj) 50 ml IVP STAT PRN PRN Reason: hypoglycemia protocol Dextrose (Glutose 15) 15 gm PO ONCE PRN PRN Reason: Hypoglycemia protocol Diphenhydramine HCl (Benadryl) 50 mg IVP Q6 PRN PRN Reason: Agitation Folic Acid (Folic Acid) 1 mg PO DAILY [facility] Last Admin: 02/05/19 09:07 Dose: 1 mg Furosemide (Lasix) 20 mg PO DAILY [facility] Last Admin: 02/05/19 09:07 Dose: Not Given Glucagon (Glucagen Diagnostic Kit) 1 mg IM ONCE PRN PRN Reason: Hypoglycemia protocol Haloperidol Lactate (Haldol) 5 mg IM Q6 PRN PRN Reason: Agitation Insulin Human Lispro (Humalog) 0 units SC ACHS [facility]; Protocol Last Admin: 02/05/19 21:45 Dose: Not Given Lactulose (Enulose) 20 gm PO TID [facility] Last Admin: 02/05/19 17:01 Dose: 20 gm Levothyroxine Sodium (Synthroid) 50 mcg PO DAILY@0630 [facility] Last Admin: 02/05/19 06:07 Dose: 50 mcg Pantoprazole Sodium (Protonix Susp) 40 mg PO DAILY [facility] Last Admin: 02/05/19 09:08 Dose: 40 mg Spironolactone (Aldactone) 50 mg PO DAILY [facility] Last Admin: 02/05/19 09:09 Dose: Not Given Tamsulosin HCl (Flomax) 0.4 mg PO DAILY [facility] Last Admin: 02/05/19 09:06 Dose: 0.4 mg Thiamine HCl (Vitamin B1 Tab) 100 mg PO DAILY [facility] Last Admin: 02/05/19 09:08 Dose: 100 mg - Labs Labs: 02/05/19 06:00 02/05/19 06:00 - Head Exam Head Exam: ATRAUMATIC - Eye Exam Eye Exam: Normal appearance - ENT Exam ENT Exam: Mucous Membranes Dry - Respiratory Exam Respiratory Exam: NORMAL BREATHING PATTERN - Cardiovascular Exam Cardiovascular Exam: +S1, +S2 - GI/Abdominal Exam GI & Abdominal Exam: Normal Bowel Sounds Assessment and Plan (1) Pancytopenia Assessment & Plan: liver cirrhosis splenic sequestration transfusion support PRN Status: Acute (2) Hepatocellular carcinoma Assessment & Plan: outpatient treatment Status: Acute
[2019-02-06] MEDS: Albuterol-Ipratrop 3 mg / 0.5 (3 ml) UD INH SCH ×3 (02:14→13:37)
[2019-02-06] MEDS ORDERED: Albuterol-Ipratrop 3 mg / 0.5 (3 ml) UD INH STA (05:00)
--- NOTE | 2019-02-06 05:11 | CP.PCM.PCO ---
Addendum Addendum: 02/06/19 05:03 Called by nurse due to pt c/o sob and wheezing onset 3 hrs ago. On Duonebs lety, last one at 2 am. VSS, O2 sat 100% on NC at 2 lpm P. Exam: Mild distress, AAO x3 Lungs: decrease breath sounds, diffuse wheezing b/l, no accessory muscles use or retractions noted. CVS: RRR, + s1s2 Plan: - Duoneb stat - Solumedrol 125 mg IV once 02/06/19 05:35 On re eval pt feeling little better, continue wheezing O2 sat RA 97%; on NC 100% at 2 lpm - Xopenex ordered
[2019-02-06] MEDS: Levothyroxine 50 MCG TAB PO SCH (05:48)
[2019-02-06] MEDS ORDERED: Levalbuterol 0.63 MG/3 ML Inhal Soln UD IH ONE (06:00)
[2019-02-06] MEDS: Insulin Lispro (humaLOG) 100 Units/ml Inj SC SCH ×4 (06:54→22:08)
[2019-02-06] MEDS: Pantoprazole 40 mg Susp UD PO SCH (08:37)
[2019-02-06 11:23] VITALS: O2SAT 99
--- NOTE | 2019-02-06 12:04 | PCM.PSYTMC ---
Acute Rehab Team Conference - - Vital Signs: Vital Signs (Last 8 Hours): Vital Signs 02/06/19 02/06/19 02/06/19 07:25 08:34 08:36 Temperature 97.2 F L Pulse Rate 87 96 H 87 Respiratory 22 Rate Blood Pressure 111/73 111/73 O2 Sat by Pulse 100 99 Oximetry 02/06/19 02/06/19 08:39 09:00 Temperature 97.2 F L Pulse Rate 87 Respiratory 22 Rate Blood Pressure 111/73 111/73 O2 Sat by Pulse Oximetry Pain: 0 - Precautions: Precautions: Fall Prevention, Aspiration, Cardiac/Pulmonary - Medications/Other Issues: Comment: RIFAXAN outdated , needs re-order will ff-up w/ Dr Paulino - Consults: Comment: Dr Lorenzo. Dr Ruano. Dr. Paulino - Skin: Incision Site: N/A - Toileting: Toileting: Maximal Assistance - Bladder Management: Bladder Pattern: Normal Voiding Method: Toilet, Urinal Bladder Management: Maximal Assistance Other Intervention:: Flomax 0.4 mg po Daily - Transfers: Transfers: Maximal Assistance - ADL's: ADL's: Maximal Assistance - Pain Management: Other Intervention:: N/A - Patient/Family Teaching: Other Intervention:: Safe transfers,. Aspiration precaution. Medications indication and side effects. Monitor for unusual bleeding. Deep breathing and coughing exercises - Goals/Time Frame: Comment: Next team Rehab Conference - Provider: Registered Nurse:: Grace Dover Physical Therapy - Bed Mobility Bed Mobility: Minimal Assistance Comment: Supine to sit on EOB with head of bed slightly elevated without use of bedrails with minimal assistance of 1 and VC's for safe technique. - Transfers Wheelchair to Mat: Minimal Assistance Sit to Stand: Minimal Assistance Comment: Sit to stand with RW with minimal assistance of 1 and VC's for safe hand placement. Stand pivot transfer bed to w/c with minimal/moderate assistance of 1 and VC's for safe technique. - Ambulation Level of Assistance: Minimal Assistance Distance (ft.): 50 Assistive Devices: Rolling Walker Comment: Patient ambulated with a RW x 50 feet x 2 times with minimal assistance of 1 with a slow gait, portable NCO2 at 2L, slow gait, step through pattern, narrow JOHN, unsteady, VC's to increase step height and to walk within the confines of the RW. - Stair Negotiation Comment: Unable at this time. - Standing Balance Static Stand: Contact Guard Assist - Pain Pain (assessed during therapy session): 0 Comment: Patient without complaints of pain during this therapy session. - Insight/Carryover Insight/Carryover: Fair - Patient/Family Education Comment: Safe hand placement with transfers with RW and stand pivot bed to chair, energy conservation, deep breathing techniques. - Assessment/Plan Assessment: Patient presents with decreased functional mobility including bed mobility, transfers, ambulation, balance, endurance and muscle strength. Pa tient is also limited by respiratory status requiring 2L of NCO2 at all times, requires frequent rest breaks between activities. - Goals Timeframe: 2 weeks Goals: Goals (2 weeks). Increase bed mobility to close supervision. Increase transfers to close supervision. Increase ambulation with RW x 150 feet x 1 time with close supervision. - Provider Physical Therapist:: Carlita Valdes License Number:: [id number] Occupational Therapy - Arousal/Attention/Orientation Level of Consciousness: Awake, Alert Patient Orientation: Person, Place, Time - ADL/IADL Self Feeding: Supervision, Verbal Cues, Set-up Help Grooming: Supervision, Verbal Cues, Set-up Help Bathing-Upper Ext: Moderate Assistance Bathing-Lower Ext: Maximum Assistance Dressing-Upper Ext: Moderate Assistance Dressing-Lower Ext: Maximum Assistance - Sitting Balance Static Sitting: Supervision Dynamic Sitting: Contact Guard Assist - Transfers Wheelchair to Bed Transfers: Maximum Assistance Toilet Transfers: Maximum Assistance, Dependent Comment: tub transfers TBA - Wheelchair Management Level of Assistance: Maximum Assistance Distance (ft.): 50 - Upper Extremity Status Right Upper Extremity Comment: PROM WFLs. AROM shoulder flexion approx 90 degrees Left Upper Extremity Comment: +severe pitting LUE edema. shoulder flexion approx 70 degrees - Pain Pain (assessed during therapy session): 0 - Insight/Carryover Insight/Carryover: Fair - Patient/Family Education Comment: safety awareness, therapy schedule, role of OT, goals in therapy, plan of care - Assessment/Plan Assessment: Pt is a 69 year old male with dx: hepatic encephalopathy. pt is limited by impaired AROM in BUEs, trunk, impaired activty tolerance/endurance, impaired safety awareness, impaired respiratory function, impaired BUEs/BLEs strength, gross motor function, impaired knowledge of adaptive/compensatory strategies which all impact on performance of self care, transfers/mobility. patint has made gains thus far with transfers and self care tasks. patient's seated tolerance has greaty improved. Acivity tolerance still continues to be barrier for the pt as he needs frequent rest breaks secondary to labored breathing during activitiy . patient is on supplemental O2 2liters O2 thru nc during therapy , pt desaturates to 98% post act. Recommend continue skilled OT services 5-6x/week to maximize pt's functional ability to complete adls, transfers and mobility safely and effectively as well as to reduce caregiver burden - Goals Timeframe: 2 weeks Comment: goal: intermittent supervision with ADLs - Provider Occupational Therapist:: Brittney Jones License Number: [id number] Speech Therapy - Consult Information Patient on Program: Yes Medical Diagnosis: Encephalophy, s/p extubation Treatment Diagnosis: Encephalophy - Assessment Expressive Language Impairment: Mild Receptive Language Impairment: Mild Problem Solving Impairment: Moderate Memory Impairment: Moderate Speech/Articulation Impairment: Mild Dysphagia/Swallowing Impairment: Moderate - Plan Assessment: Pt presents with a moderate oropharyngeal dysphagia and a moderate cognitive communication impairment. Please see full evaluation for details. Plan: Continue Dysphagia Therapy, Continue Speech/Language Therapy Frequency: 3-5 times per week Duration: 1 week - Provider Therapist: Beth Goff License Number: [id number] Recreational Therapy - Participation Participation: Participates in Individual and/or Group Sessions - Attendance Attendance: 3-5 times per week - Activities Leisure Activities: Cards and Games - Socialization Level of Socialization: Initiates/interacts freely with care givers and peer - Diversional Time Diversional Time: watching television - Assessment Assessment/Plan: Pt is agreeable to participate in recreation therapy sessions. Pt has participated in modified dafne card task and was oriented to task. Pt required min verbal cues for task carryover. Pt demonstrated improved activity tolerance level as he was able to tolerate participating in more than 30 minutes of task without rest breaks. Pt will continue to benefit from recreation therapy sessions to improve leisure awareness level and improve overall activity tolerance level by staying awake and sitting in wheelchair. Problems Currently Limiting Participation: decrease endurance level, decrease activity tolerance level, decrease leisure awareness level, fatigue/weakness Goals and Time Frame: Pt will tolerate participating in 30 minutes of recreation therapy session with min A by date of discharge. - Provider Therapist: Ondina Zhang Nutrition - Current Diet Current Diet/Supplement/Feedings: Moderate consistent CHO low fat/low cholesterol pureed honey thick liquids - Appetite Percent Meal Consumed: 50-74% - Assessment/Goals/Time Frame Assessments/Goals/Time Frame: Pt at high nutritional risk. goals: 1) Pt to consume at least 75% meals without GI upset or s/s aspiration x 3-5 days(partially met,continue). 2) Pt to have glucose controlled 80-180mg/dL x 3- 5 days(partially met,continue). Follow-up due on 02/09/2019. [ End ] - Provider Provider: Bernadette Cantu Case Management - Psychosocial Assessment Support Systems: [place] () - [phone] Psychological Interventions/Needs: Patient is AAO and able to verbalize needs. Discharge Concerns: Patient is very deconditioned and requiring assistands with ambulation and ADLs Patient/Family Meeting: CM met with patient and rehab team. Intervention/Goal/Outcome: 1. Goal: 24hr supervision 2. Plan: home with VNS vs RINKU pending progress 3. discuss DME recommendations with team and order accordingly 4. schedule f/u appts 5. continued emotional support 6. caregiver training with - Discharge Plan Discharge Plan: Home with services Home Services: [facility] - Provider Provider: Raine Zhao License Number: [id number] Rehabilitation Plan - Treatment Plan Treatment Plan: Physical Therapy, Occupational Therapy, Speech, Dietary, Patient/Family Education - Recommendation Recommendation: Physical Therapy, Occupational Therapy, Speech, Dietary, Patient/Family Education - Discharge Plan Discharge to: Home (Dc february 16)
--- NOTE | 2019-02-06 14:08 | CP.PCM.PN ---
Subjective - Date & Time of Evaluation Date of Evaluation: 02/06/19 Time of Evaluation: 13:00 - Subjective Subjective: no acute complaints just weakness generalized Objective - Vital Signs/Intake and Output Vital Signs (last 24 hours): Temp Pulse Resp BP Pulse Ox 97.2 F L 87 22 111/73 99 02/06/19 09:00 02/06/19 09:00 02/06/19 09:00 02/06/19 09:00 02/06/19 08:34 - Medications Medications: Current Medications Acetaminophen (Tylenol 650mg/20.3ml Solution Ud) 650 mg PO Q6 PRN PRN Reason: Temp >100.4 Albuterol/Ipratropium (Duoneb 3 Mg/0.5 Mg (3 Ml) Ud) 3 ml INH RQ6 [facility] Last Admin: 02/06/19 13:37 Dose: Not Given Benzonatate (Tessalon Perles) 100 mg PO Q8 PRN PRN Reason: Cough Last Admin: 02/06/19 11:43 Dose: 100 mg Carvedilol (Coreg) 6.25 mg PO Q12 [facility] Last Admin: 02/06/19 08:36 Dose: 6.25 mg Dextrose (Dextrose 50% Inj) 50 ml IVP STAT PRN PRN Reason: hypoglycemia protocol Dextrose (Glutose 15) 15 gm PO ONCE PRN PRN Reason: Hypoglycemia protocol Diphenhydramine HCl (Benadryl) 50 mg IVP Q6 PRN PRN Reason: Agitation Folic Acid (Folic Acid) 1 mg PO DAILY [facility] Last Admin: 02/06/19 08:37 Dose: 1 mg Furosemide (Lasix) 20 mg PO DAILY [facility] Last Admin: 02/06/19 08:39 Dose: 20 mg Glucagon (Glucagen Diagnostic Kit) 1 mg IM ONCE PRN PRN Reason: Hypoglycemia protocol Haloperidol Lactate (Haldol) 5 mg IM Q6 PRN PRN Reason: Agitation Insulin Human Lispro (Humalog) 0 units SC ACHS [facility]; Protocol Last Admin: 02/06/19 11:42 Dose: 3 units Lactulose (Enulose) 20 gm PO TID [facility] Last Admin: 02/06/19 12:51 Dose: 20 gm Levothyroxine Sodium (Synthroid) 50 mcg PO DAILY@0630 [facility] Last Admin: 02/06/19 05:48 Dose: 50 mcg Pantoprazole Sodium (Protonix Susp) 40 mg PO DAILY [facility] Last Admin: 02/06/19 08:37 Dose: 40 mg Rifaximin (Xifaxan) 550 mg PO BID [facility]; Protocol Spironolactone (Aldactone) 50 mg PO DAILY [facility] Last Admin: 02/06/19 08:38 Dose: 50 mg Tamsulosin HCl (Flomax) 0.4 mg PO DAILY [facility] Last Admin: 02/06/19 08:38 Dose: 0.4 mg Thiamine HCl (Vitamin B1 Tab) 100 mg PO DAILY [facility] Last Admin: 02/06/19 08:39 Dose: 100 mg - Labs Labs: 02/05/19 06:00 02/05/19 06:00 - Constitutional Appears: Well - Head Exam Head Exam: ATRAUMATIC, NORMAL INSPECTION, NORMOCEPHALIC - Eye Exam Eye Exam: EOMI, Normal appearance, PERRL Pupil Exam: NORMAL ACCOMODATION - ENT Exam ENT Exam: Mucous Membranes Moist, Normal Exam - Neck Exam Neck Exam: Full ROM - Respiratory Exam Respiratory Exam: Clear to Ausculation Bilateral, NORMAL BREATHING PATTERN - Cardiovascular Exam Cardiovascular Exam: REGULAR RHYTHM - GI/Abdominal Exam GI & Abdominal Exam: Soft, Normal Bowel Sounds - Rectal Exam Rectal Exam: NORMAL INSPECTION - Exam External exam: NORMAL EXTERNAL EXAM - Extremities Exam Extremities Exam: Full ROM, Normal Capillary Refill, Normal Inspection - Back Exam Back Exam: NORMAL INSPECTION - Neurological Exam Neurological Exam: Alert, Awake Neuro motor strength exam: Left Upper Extremity: 3, Right Upper Extremity: 3, Left Lower Extremity: 3, Right Lower Extremity: 3 - Psychiatric Exam Psychiatric exam: Normal Affect, Normal Mood - Skin Skin Exam: Dry, Intact Assessment and Plan (1) Cholelithiasis Status: Acute (2) Cirrhosis of liver Status: Acute (3) Coagulopathy Status: Acute (4) Colitis Status: Acute (5) DM type 2 (diabetes mellitus, type 2) Status: Acute (6) Diabetes mellitus Status: Acute (7) Encephalopathy Assessment & Plan: plan for physical, occupational rec and speech therapy Dc for MAy 4ht may need subacute Status: Acute
--- NOTE | 2019-02-06 14:16 | CP.PCM.PN ---
Subjective - Date & Time of Evaluation Date of Evaluation: 02/05/19 Time of Evaluation: 16:00 - Subjective Subjective: no acute complaints of neck or back back , on oxygen with generalized weakness Objective - Vital Signs/Intake and Output Vital Signs (last 24 hours): Temp Pulse Resp BP Pulse Ox 97.2 F L 87 22 111/73 99 02/06/19 09:00 02/06/19 09:00 02/06/19 09:00 02/06/19 09:00 02/06/19 08:34 - Medications Medications: Current Medications Acetaminophen (Tylenol 650mg/20.3ml Solution Ud) 650 mg PO Q6 PRN PRN Reason: Temp >100.4 Albuterol/Ipratropium (Duoneb 3 Mg/0.5 Mg (3 Ml) Ud) 3 ml INH RQ6 [facility] Last Admin: 02/06/19 13:37 Dose: Not Given Benzonatate (Tessalon Perles) 100 mg PO Q8 PRN PRN Reason: Cough Last Admin: 02/06/19 11:43 Dose: 100 mg Carvedilol (Coreg) 6.25 mg PO Q12 [facility] Last Admin: 02/06/19 08:36 Dose: 6.25 mg Dextrose (Dextrose 50% Inj) 50 ml IVP STAT PRN PRN Reason: hypoglycemia protocol Dextrose (Glutose 15) 15 gm PO ONCE PRN PRN Reason: Hypoglycemia protocol Diphenhydramine HCl (Benadryl) 50 mg IVP Q6 PRN PRN Reason: Agitation Folic Acid (Folic Acid) 1 mg PO DAILY [facility] Last Admin: 02/06/19 08:37 Dose: 1 mg Furosemide (Lasix) 20 mg PO DAILY [facility] Last Admin: 02/06/19 08:39 Dose: 20 mg Glucagon (Glucagen Diagnostic Kit) 1 mg IM ONCE PRN PRN Reason: Hypoglycemia protocol Haloperidol Lactate (Haldol) 5 mg IM Q6 PRN PRN Reason: Agitation Insulin Human Lispro (Humalog) 0 units SC ACHS [facility]; Protocol Last Admin: 02/06/19 11:42 Dose: 3 units Lactulose (Enulose) 20 gm PO TID [facility] Last Admin: 02/06/19 12:51 Dose: 20 gm Levothyroxine Sodium (Synthroid) 50 mcg PO DAILY@0630 [facility] Last Admin: 02/06/19 05:48 Dose: 50 mcg Pantoprazole Sodium (Protonix Susp) 40 mg PO DAILY [facility] Last Admin: 02/06/19 08:37 Dose: 40 mg Rifaximin (Xifaxan) 550 mg PO BID [facility]; Protocol Spironolactone (Aldactone) 50 mg PO DAILY [facility] Last Admin: 02/06/19 08:38 Dose: 50 mg Tamsulosin HCl (Flomax) 0.4 mg PO DAILY [facility] Last Admin: 02/06/19 08:38 Dose: 0.4 mg Thiamine HCl (Vitamin B1 Tab) 100 mg PO DAILY [facility] Last Admin: 02/06/19 08:39 Dose: 100 mg - Labs Labs: 02/05/19 06:00 02/05/19 06:00 - Constitutional Appears: Well - Head Exam Head Exam: ATRAUMATIC, NORMAL INSPECTION, NORMOCEPHALIC - Eye Exam Eye Exam: EOMI, Normal appearance, PERRL Pupil Exam: NORMAL ACCOMODATION - ENT Exam ENT Exam: Mucous Membranes Moist, Normal Exam - Neck Exam Neck Exam: Full ROM, Normal Inspection - Respiratory Exam Respiratory Exam: Clear to Ausculation Bilateral, NORMAL BREATHING PATTERN - Cardiovascular Exam Cardiovascular Exam: REGULAR RHYTHM - GI/Abdominal Exam GI & Abdominal Exam: Soft, Normal Bowel Sounds - Rectal Exam Rectal Exam: NORMAL INSPECTION - Exam External exam: NORMAL EXTERNAL EXAM - Extremities Exam Extremities Exam: Full ROM, Normal Capillary Refill, Normal Inspection - Back Exam Back Exam: NORMAL INSPECTION - Neurological Exam Neurological Exam: Alert, Awake Neuro motor strength exam: Left Upper Extremity: 3, Right Upper Extremity: 3, Left Lower Extremity: 3, Right Lower Extremity: 3 - Psychiatric Exam Psychiatric exam: Normal Affect, Normal Mood - Skin Skin Exam: Dry Assessment and Plan (1) Cholelithiasis Status: Acute (2) Cirrhosis of liver Status: Acute (3) Coagulopathy Status: Acute (4) Colitis Status: Acute (5) DM type 2 (diabetes mellitus, type 2) Status: Acute (6) Diabetes mellitus Status: Acute (7) Encephalopathy Assessment & Plan: plan for physical,occupational, rec and speech therapy. monitor renal function, ammonia level Status: Acute
--- NOTE | 2019-02-06 14:31 | CP.PCM.PN ---
Subjective - Date & Time of Evaluation Date of Evaluation: 02/03/19 Time of Evaluation: 12:00 - Subjective Subjective: patient with generalized weakness Objective - Vital Signs/Intake and Output Vital Signs (last 24 hours): Temp Pulse Resp BP Pulse Ox 97.2 F L 87 22 111/73 99 02/06/19 09:00 02/06/19 09:00 02/06/19 09:00 02/06/19 09:00 02/06/19 08:34 - Medications Medications: Current Medications Acetaminophen (Tylenol 650mg/20.3ml Solution Ud) 650 mg PO Q6 PRN PRN Reason: Temp >100.4 Albuterol/Ipratropium (Duoneb 3 Mg/0.5 Mg (3 Ml) Ud) 3 ml INH RQ6 [facility] Last Admin: 02/06/19 13:37 Dose: Not Given Benzonatate (Tessalon Perles) 100 mg PO Q8 PRN PRN Reason: Cough Last Admin: 02/06/19 11:43 Dose: 100 mg Carvedilol (Coreg) 6.25 mg PO Q12 [facility] Last Admin: 02/06/19 08:36 Dose: 6.25 mg Dextrose (Dextrose 50% Inj) 50 ml IVP STAT PRN PRN Reason: hypoglycemia protocol Dextrose (Glutose 15) 15 gm PO ONCE PRN PRN Reason: Hypoglycemia protocol Diphenhydramine HCl (Benadryl) 50 mg IVP Q6 PRN PRN Reason: Agitation Folic Acid (Folic Acid) 1 mg PO DAILY [facility] Last Admin: 02/06/19 08:37 Dose: 1 mg Furosemide (Lasix) 20 mg PO DAILY [facility] Last Admin: 02/06/19 08:39 Dose: 20 mg Glucagon (Glucagen Diagnostic Kit) 1 mg IM ONCE PRN PRN Reason: Hypoglycemia protocol Haloperidol Lactate (Haldol) 5 mg IM Q6 PRN PRN Reason: Agitation Insulin Human Lispro (Humalog) 0 units SC ACHS [facility]; Protocol Last Admin: 02/06/19 11:42 Dose: 3 units Lactulose (Enulose) 20 gm PO TID [facility] Last Admin: 02/06/19 12:51 Dose: 20 gm Levothyroxine Sodium (Synthroid) 50 mcg PO DAILY@0630 [facility] Last Admin: 02/06/19 05:48 Dose: 50 mcg Pantoprazole Sodium (Protonix Susp) 40 mg PO DAILY [facility] Last Admin: 02/06/19 08:37 Dose: 40 mg Rifaximin (Xifaxan) 550 mg PO BID [facility]; Protocol Spironolactone (Aldactone) 50 mg PO DAILY [facility] Last Admin: 02/06/19 08:38 Dose: 50 mg Tamsulosin HCl (Flomax) 0.4 mg PO DAILY [facility] Last Admin: 02/06/19 08:38 Dose: 0.4 mg Thiamine HCl (Vitamin B1 Tab) 100 mg PO DAILY [facility] Last Admin: 02/06/19 08:39 Dose: 100 mg - Labs Labs: 02/05/19 06:00 02/05/19 06:00 - Constitutional Appears: Well - Head Exam Head Exam: ATRAUMATIC, NORMAL INSPECTION, NORMOCEPHALIC - Eye Exam Eye Exam: EOMI, Normal appearance, PERRL Pupil Exam: NORMAL ACCOMODATION - ENT Exam ENT Exam: Mucous Membranes Moist, Normal Exam - Neck Exam Neck Exam: Full ROM, Normal Inspection - Respiratory Exam Respiratory Exam: Clear to Ausculation Bilateral, NORMAL BREATHING PATTERN - Cardiovascular Exam Cardiovascular Exam: REGULAR RHYTHM - GI/Abdominal Exam GI & Abdominal Exam: Soft, Normal Bowel Sounds - Rectal Exam Rectal Exam: NORMAL INSPECTION - Exam External exam: NORMAL EXTERNAL EXAM - Extremities Exam Extremities Exam: Full ROM, Normal Capillary Refill - Back Exam Back Exam: NORMAL INSPECTION - Neurological Exam Neurological Exam: Alert, Awake Neuro motor strength exam: Left Upper Extremity: 3, Right Upper Extremity: 3, Left Lower Extremity: 3, Right Lower Extremity: 3 - Psychiatric Exam Psychiatric exam: Normal Affect, Normal Mood - Skin Skin Exam: Dry Assessment and Plan (1) Cholelithiasis Status: Acute (2) Cirrhosis of liver Status: Acute (3) Coagulopathy Status: Acute (4) Colitis Status: Acute (5) DM type 2 (diabetes mellitus, type 2) Status: Acute (6) Diabetes mellitus Status: Acute (7) Encephalopathy Assessment & Plan: plan for physical, occupational, rec and speech therapy Status: Acute
--- NOTE | 2019-02-06 16:23 | CP.PCM.PN ---
Subjective - Date & Time of Evaluation Date of Evaluation: 02/06/19 Time of Evaluation: 16:22 - Subjective Subjective: Clinicaaly unchanged Doing well on rifaximin. Objective - Vital Signs/Intake and Output Vital Signs (last 24 hours): Temp Pulse Resp BP Pulse Ox 97.2 F L 87 22 111/73 99 02/06/19 09:00 02/06/19 09:00 02/06/19 09:00 02/06/19 09:00 02/06/19 08:34 - Medications Medications: Current Medications Acetaminophen (Tylenol 650mg/20.3ml Solution Ud) 650 mg PO Q6 PRN PRN Reason: Temp >100.4 Albuterol/Ipratropium (Duoneb 3 Mg/0.5 Mg (3 Ml) Ud) 3 ml INH RQ6 [facility] Last Admin: 02/06/19 13:37 Dose: Not Given Benzonatate (Tessalon Perles) 100 mg PO Q8 PRN PRN Reason: Cough Last Admin: 02/06/19 11:43 Dose: 100 mg Carvedilol (Coreg) 6.25 mg PO Q12 [facility] Last Admin: 02/06/19 08:36 Dose: 6.25 mg Dextrose (Dextrose 50% Inj) 50 ml IVP STAT PRN PRN Reason: hypoglycemia protocol Dextrose (Glutose 15) 15 gm PO ONCE PRN PRN Reason: Hypoglycemia protocol Diphenhydramine HCl (Benadryl) 50 mg IVP Q6 PRN PRN Reason: Agitation Folic Acid (Folic Acid) 1 mg PO DAILY [facility] Last Admin: 02/06/19 08:37 Dose: 1 mg Furosemide (Lasix) 20 mg PO DAILY [facility] Last Admin: 02/06/19 08:39 Dose: 20 mg Glucagon (Glucagen Diagnostic Kit) 1 mg IM ONCE PRN PRN Reason: Hypoglycemia protocol Haloperidol Lactate (Haldol) 5 mg IM Q6 PRN PRN Reason: Agitation Insulin Human Lispro (Humalog) 0 units SC ACHS [facility]; Protocol Last Admin: 02/06/19 11:42 Dose: 3 units Lactulose (Enulose) 20 gm PO TID [facility] Last Admin: 02/06/19 12:51 Dose: 20 gm Levothyroxine Sodium (Synthroid) 50 mcg PO DAILY@0630 [facility] Last Admin: 02/06/19 05:48 Dose: 50 mcg Pantoprazole Sodium (Protonix Susp) 40 mg PO DAILY [facility] Last Admin: 02/06/19 08:37 Dose: 40 mg Prednisolone (Prednisolone Oral Soln) 5 mg PO DAILY [facility] Stop: 02/21/19 23:59 Prednisone (Prednisone Tab) 20 mg PO DAILY [facility] Stop: 02/09/19 23:59 Prednisone (Prednisone Oral Soln) 10 mg PO DAILY [facility] Stop: 02/17/19 23:59 Rifaximin (Xifaxan) 550 mg PO BID [facility]; Protocol Spironolactone (Aldactone) 50 mg PO DAILY [facility] Last Admin: 02/06/19 08:38 Dose: 50 mg Tamsulosin HCl (Flomax) 0.4 mg PO DAILY [facility] Last Admin: 02/06/19 08:38 Dose: 0.4 mg Thiamine HCl (Vitamin B1 Tab) 100 mg PO DAILY [facility] Last Admin: 02/06/19 08:39 Dose: 100 mg - Labs Labs: 02/05/19 06:00 02/05/19 06:00 - Head Exam Head Exam: ATRAUMATIC - Eye Exam Eye Exam: Normal appearance - ENT Exam ENT Exam: Normal Exam - Neck Exam Neck Exam: Full ROM - Respiratory Exam Respiratory Exam: Clear to Ausculation Bilateral - Cardiovascular Exam Cardiovascular Exam: REGULAR RHYTHM - GI/Abdominal Exam GI & Abdominal Exam: Soft, Normal Bowel Sounds. absent: Tenderness Assessment and Plan (1) Cirrhosis of liver Assessment & Plan: Stable on current regimen including lactulose and rifaximin. Status: Acute
--- NOTE | 2019-02-06 16:24 | CP.PCM.PN ---
Subjective - Date & Time of Evaluation Date of Evaluation: 02/04/19 Time of Evaluation: 19:30 - Subjective Subjective: No new complaint Objective - Vital Signs/Intake and Output Vital Signs (last 24 hours): Temp Pulse Resp BP Pulse Ox 97.2 F L 87 22 111/73 99 02/06/19 09:00 02/06/19 09:00 02/06/19 09:00 02/06/19 09:00 02/06/19 08:34 - Medications Medications: Current Medications Acetaminophen (Tylenol 650mg/20.3ml Solution Ud) 650 mg PO Q6 PRN PRN Reason: Temp >100.4 Albuterol/Ipratropium (Duoneb 3 Mg/0.5 Mg (3 Ml) Ud) 3 ml INH RQ4 PRN PRN Reason: Shortness of Breath Benzonatate (Tessalon Perles) 100 mg PO Q8 PRN PRN Reason: Cough Last Admin: 02/06/19 11:43 Dose: 100 mg Carvedilol (Coreg) 6.25 mg PO Q12 [facility] Last Admin: 02/06/19 08:36 Dose: 6.25 mg Dextrose (Dextrose 50% Inj) 50 ml IVP STAT PRN PRN Reason: hypoglycemia protocol Dextrose (Glutose 15) 15 gm PO ONCE PRN PRN Reason: Hypoglycemia protocol Diphenhydramine HCl (Benadryl) 50 mg IVP Q6 PRN PRN Reason: Agitation Folic Acid (Folic Acid) 1 mg PO DAILY [facility] Last Admin: 02/06/19 08:37 Dose: 1 mg Furosemide (Lasix) 20 mg PO DAILY [facility] Last Admin: 02/06/19 08:39 Dose: 20 mg Glucagon (Glucagen Diagnostic Kit) 1 mg IM ONCE PRN PRN Reason: Hypoglycemia protocol Haloperidol Lactate (Haldol) 5 mg IM Q6 PRN PRN Reason: Agitation Insulin Human Lispro (Humalog) 0 units SC ACHS [facility]; Protocol Last Admin: 02/06/19 11:42 Dose: 3 units Lactulose (Enulose) 20 gm PO TID [facility] Last Admin: 02/06/19 12:51 Dose: 20 gm Levothyroxine Sodium (Synthroid) 50 mcg PO DAILY@0630 [facility] Last Admin: 02/06/19 05:48 Dose: 50 mcg Pantoprazole Sodium (Protonix Susp) 40 mg PO DAILY [facility] Last Admin: 02/06/19 08:37 Dose: 40 mg Prednisolone (Prednisolone Oral Soln) 5 mg PO DAILY [facility] Stop: 02/21/19 23:59 Prednisone (Prednisone Tab) 20 mg PO DAILY [facility] Stop: 02/09/19 23:59 Prednisone (Prednisone Oral Soln) 10 mg PO DAILY [facility] Stop: 02/17/19 23:59 Rifaximin (Xifaxan) 550 mg PO BID [facility]; Protocol Spironolactone (Aldactone) 50 mg PO DAILY [facility] Last Admin: 02/06/19 08:38 Dose: 50 mg Tamsulosin HCl (Flomax) 0.4 mg PO DAILY [facility] Last Admin: 02/06/19 08:38 Dose: 0.4 mg Thiamine HCl (Vitamin B1 Tab) 100 mg PO DAILY [facility] Last Admin: 02/06/19 08:39 Dose: 100 mg - Labs Labs: 02/05/19 06:00 02/05/19 06:00 Assessment and Plan (1) Generalized weakness Status: Acute (2) Physical deconditioning Status: Acute (3) DM type 2 (diabetes mellitus, type 2) Status: Acute (4) Thrombocytopenia Status: Acute (5) 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
--- NOTE | 2019-02-06 16:26 | CP.PCM.PN ---
Subjective - Date & Time of Evaluation Date of Evaluation: 02/05/19 Time of Evaluation: 19:25 - Subjective Subjective: Seen and examined at the bed side. On and off dyspnea. Edema has subsided. Objective - Vital Signs/Intake and Output Vital Signs (last 24 hours): Temp Pulse Resp BP Pulse Ox 97.2 F L 87 22 111/73 99 02/06/19 09:00 02/06/19 09:00 02/06/19 09:00 02/06/19 09:00 02/06/19 08:34 - Medications Medications: Current Medications Acetaminophen (Tylenol 650mg/20.3ml Solution Ud) 650 mg PO Q6 PRN PRN Reason: Temp >100.4 Albuterol/Ipratropium (Duoneb 3 Mg/0.5 Mg (3 Ml) Ud) 3 ml INH RQ4 PRN PRN Reason: Shortness of Breath Benzonatate (Tessalon Perles) 100 mg PO Q8 PRN PRN Reason: Cough Last Admin: 02/06/19 11:43 Dose: 100 mg Carvedilol (Coreg) 6.25 mg PO Q12 [facility] Last Admin: 02/06/19 08:36 Dose: 6.25 mg Dextrose (Dextrose 50% Inj) 50 ml IVP STAT PRN PRN Reason: hypoglycemia protocol Dextrose (Glutose 15) 15 gm PO ONCE PRN PRN Reason: Hypoglycemia protocol Diphenhydramine HCl (Benadryl) 50 mg IVP Q6 PRN PRN Reason: Agitation Folic Acid (Folic Acid) 1 mg PO DAILY [facility] Last Admin: 02/06/19 08:37 Dose: 1 mg Furosemide (Lasix) 20 mg PO DAILY [facility] Last Admin: 02/06/19 08:39 Dose: 20 mg Glucagon (Glucagen Diagnostic Kit) 1 mg IM ONCE PRN PRN Reason: Hypoglycemia protocol Haloperidol Lactate (Haldol) 5 mg IM Q6 PRN PRN Reason: Agitation Insulin Human Lispro (Humalog) 0 units SC ACHS [facility]; Protocol Last Admin: 02/06/19 11:42 Dose: 3 units Lactulose (Enulose) 20 gm PO TID [facility] Last Admin: 02/06/19 12:51 Dose: 20 gm Levothyroxine Sodium (Synthroid) 50 mcg PO DAILY@0630 [facility] Last Admin: 02/06/19 05:48 Dose: 50 mcg Pantoprazole Sodium (Protonix Susp) 40 mg PO DAILY [facility] Last Admin: 02/06/19 08:37 Dose: 40 mg Prednisolone (Prednisolone Oral Soln) 5 mg PO DAILY [facility] Stop: 02/21/19 23:59 Prednisone (Prednisone Tab) 20 mg PO DAILY [facility] Stop: 02/09/19 23:59 Prednisone (Prednisone Oral Soln) 10 mg PO DAILY [facility] Stop: 02/17/19 23:59 Rifaximin (Xifaxan) 550 mg PO BID [facility]; Protocol Spironolactone (Aldactone) 50 mg PO DAILY [facility] Last Admin: 02/06/19 08:38 Dose: 50 mg Tamsulosin HCl (Flomax) 0.4 mg PO DAILY [facility] Last Admin: 02/06/19 08:38 Dose: 0.4 mg Thiamine HCl (Vitamin B1 Tab) 100 mg PO DAILY [facility] Last Admin: 02/06/19 08:39 Dose: 100 mg - Labs Labs: 02/05/19 06:00 02/05/19 06:00 Assessment and Plan (1) Generalized weakness Status: Acute (2) Physical deconditioning Status: Acute (3) DM type 2 (diabetes mellitus, type 2) Status: Acute (4) Thrombocytopenia Status: Acute (5) 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
--- NOTE | 2019-02-06 16:28 | CP.PCM.PN ---
Subjective - Date & Time of Evaluation Date of Evaluation: 02/06/19 Time of Evaluation: 20:10 - Subjective Subjective: Seen and examined at the bed side. at the bed side. C/O Dyspnea and Wheezing. Recent Intubation. Denies fever or chills. Objective - Vital Signs/Intake and Output Vital Signs (last 24 hours): Temp Pulse Resp BP Pulse Ox 97.2 F L 87 22 111/73 99 02/06/19 09:00 02/06/19 09:00 02/06/19 09:00 02/06/19 09:00 02/06/19 08:34 - Medications Medications: Current Medications Acetaminophen (Tylenol 650mg/20.3ml Solution Ud) 650 mg PO Q6 PRN PRN Reason: Temp >100.4 Albuterol/Ipratropium (Duoneb 3 Mg/0.5 Mg (3 Ml) Ud) 3 ml INH RQ4 PRN PRN Reason: Shortness of Breath Benzonatate (Tessalon Perles) 100 mg PO Q8 PRN PRN Reason: Cough Last Admin: 02/06/19 11:43 Dose: 100 mg Carvedilol (Coreg) 6.25 mg PO Q12 [facility] Last Admin: 02/06/19 08:36 Dose: 6.25 mg Dextrose (Dextrose 50% Inj) 50 ml IVP STAT PRN PRN Reason: hypoglycemia protocol Dextrose (Glutose 15) 15 gm PO ONCE PRN PRN Reason: Hypoglycemia protocol Diphenhydramine HCl (Benadryl) 50 mg IVP Q6 PRN PRN Reason: Agitation Folic Acid (Folic Acid) 1 mg PO DAILY [facility] Last Admin: 02/06/19 08:37 Dose: 1 mg Furosemide (Lasix) 20 mg PO DAILY [facility] Last Admin: 02/06/19 08:39 Dose: 20 mg Glucagon (Glucagen Diagnostic Kit) 1 mg IM ONCE PRN PRN Reason: Hypoglycemia protocol Haloperidol Lactate (Haldol) 5 mg IM Q6 PRN PRN Reason: Agitation Insulin Human Lispro (Humalog) 0 units SC [facility]; Protocol Last Admin: 02/06/19 11:42 Dose: 3 units Lactulose (Enulose) 20 gm PO TID [facility] Last Admin: 02/06/19 12:51 Dose: 20 gm Levothyroxine Sodium (Synthroid) 50 mcg PO DAILY@0630 [facility] Last Admin: 02/06/19 05:48 Dose: 50 mcg Pantoprazole Sodium (Protonix Susp) 40 mg PO DAILY [facility] Last Admin: 02/06/19 08:37 Dose: 40 mg Prednisolone (Prednisolone Oral Soln) 5 mg PO DAILY [facility] Stop: 02/21/19 23:59 Prednisone (Prednisone Tab) 20 mg PO DAILY [facility] Stop: 02/09/19 23:59 Prednisone (Prednisone Oral Soln) 10 mg PO DAILY [facility] Stop: 02/17/19 23:59 Rifaximin (Xifaxan) 550 mg PO BID [facility]; Protocol Spironolactone (Aldactone) 50 mg PO DAILY [facility] Last Admin: 02/06/19 08:38 Dose: 50 mg Tamsulosin HCl (Flomax) 0.4 mg PO DAILY [facility] Last Admin: 02/06/19 08:38 Dose: 0.4 mg Thiamine HCl (Vitamin B1 Tab) 100 mg PO DAILY [facility] Last Admin: 02/06/19 08:39 Dose: 100 mg - Labs Labs: 02/05/19 06:00 02/05/19 06:00 Assessment and Plan (1) Generalized weakness Status: Acute (2) Physical deconditioning Status: Acute (3) DM type 2 (diabetes mellitus, type 2) Status: Acute (4) Thrombocytopenia Status: Acute (5) 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
[2019-02-06] MEDS: Albuterol-Ipratrop 3 mg / 0.5 (3 ml) UD INH PRN (22:26)
--- NOTE | 2019-02-06 23:20 | CP.PCM.PN ---
Subjective - Date & Time of Evaluation Date of Evaluation: 02/06/19 Time of Evaluation: 17:00 - Subjective Subjective: Appears comfortable but wheezing at times. Objective - Vital Signs/Intake and Output Vital Signs (last 24 hours): Temp Pulse Resp BP Pulse Ox 97.0 F L 98 H 20 106/54 L 99 02/06/19 20:00 02/06/19 22:07 02/06/19 20:00 02/06/19 22:07 02/06/19 20:00 - Medications Medications: Current Medications Acetaminophen (Tylenol 650mg/20.3ml Solution Ud) 650 mg PO Q6 PRN PRN Reason: Temp >100.4 Albuterol/Ipratropium (Duoneb 3 Mg/0.5 Mg (3 Ml) Ud) 3 ml INH RQ4 PRN PRN Reason: Shortness of Breath Last Admin: 02/06/19 22:26 Dose: 3 ml Benzonatate (Tessalon Perles) 100 mg PO Q8 PRN PRN Reason: Cough Last Admin: 02/06/19 22:08 Dose: 100 mg Carvedilol (Coreg) 6.25 mg PO Q12 [facility] Last Admin: 02/06/19 22:07 Dose: 6.25 mg Dextrose (Dextrose 50% Inj) 50 ml IVP STAT PRN PRN Reason: hypoglycemia protocol Dextrose (Glutose 15) 15 gm PO ONCE PRN PRN Reason: Hypoglycemia protocol Diphenhydramine HCl (Benadryl) 50 mg IVP Q6 PRN PRN Reason: Agitation Folic Acid (Folic Acid) 1 mg PO DAILY [facility] Last Admin: 02/06/19 08:37 Dose: 1 mg Furosemide (Lasix) 20 mg PO DAILY [facility] Last Admin: 02/06/19 08:39 Dose: 20 mg Glucagon (Glucagen Diagnostic Kit) 1 mg IM ONCE PRN PRN Reason: Hypoglycemia protocol Haloperidol Lactate (Haldol) 5 mg IM Q6 PRN PRN Reason: Agitation Insulin Human Lispro (Humalog) 0 units SC [facility]; Protocol Last Admin: 02/06/19 22:08 Dose: Not Given Lactulose (Enulose) 20 gm PO TID [facility] Last Admin: 02/06/19 16:25 Dose: 20 gm Levothyroxine Sodium (Synthroid) 50 mcg PO DAILY@0630 [facility] Last Admin: 02/06/19 05:48 Dose: 50 mcg Pantoprazole Sodium (Protonix Susp) 40 mg PO DAILY [facility] Last Admin: 02/06/19 08:37 Dose: 40 mg Prednisone (Prednisone Tab) 20 mg PO DAILY [facility] Stop: 02/09/19 09:01 Last Admin: 02/06/19 17:15 Dose: 20 mg Prednisone (Prednisone Tab) 10 mg PO DAILY [facility] Stop: 02/17/19 23:59 Prednisone (Prednisone Tab) 5 mg PO DAILY [facility] Stop: 02/21/19 23:59 Prednisone (Prednisone Tab) 15 mg PO DAILY [facility] Stop: 02/14/19 23:59 Rifaximin (Xifaxan) 550 mg PO BID [facility]; Protocol Last Admin: 02/06/19 16:26 Dose: 550 mg Spironolactone (Aldactone) 50 mg PO DAILY [facility] Last Admin: 02/06/19 08:38 Dose: 50 mg Tamsulosin HCl (Flomax) 0.4 mg PO DAILY [facility] Last Admin: 02/06/19 08:38 Dose: 0.4 mg Thiamine HCl (Vitamin B1 Tab) 100 mg PO DAILY [facility] Last Admin: 02/06/19 08:39 Dose: 100 mg - Labs Labs: 02/05/19 06:00 02/05/19 06:00 - Head Exam Head Exam: ATRAUMATIC - Eye Exam Eye Exam: Normal appearance - ENT Exam ENT Exam: Mucous Membranes Dry - Respiratory Exam Respiratory Exam: NORMAL BREATHING PATTERN - Cardiovascular Exam Cardiovascular Exam: +S1, +S2 - GI/Abdominal Exam GI & Abdominal Exam: Normal Bowel Sounds Assessment and Plan (1) Pancytopenia Assessment & Plan: liver cirrhosis splenic sequestration transfusion support PRN Status: Acute (2) Hepatocellular carcinoma Assessment & Plan: outpatient treatment Status: Acute
[2019-02-07] MEDS: Albuterol-Ipratrop 3 mg / 0.5 (3 ml) UD INH PRN ×3 (03:49→17:01)
[2019-02-07] MEDS: Levothyroxine 50 MCG TAB PO SCH (06:17)
[2019-02-07] MEDS: Insulin Lispro (humaLOG) 100 Units/ml Inj SC SCH ×3 (07:38→16:35)
[2019-02-07 07:54] VITALS: RESP 22; TEMP 97.7
[2019-02-07] MEDS: Pantoprazole 40 mg Susp UD PO SCH (08:22)
[2019-02-07 09:22] VITALS: PULSE 93
[2019-02-07 20:40] VITALS: BP 135/54
[2019-02-11] MEDS ORDERED: PrednisoLONE 15 mg/5 ml Oral Syrup (240 ml) PO SCH (09:00)
== END 2019-02-07 18:00 | disposition short-term general hospital (02) | DRG 441 ==
PROVIDERS: ADMIT Internal Medicine; ATTEND Internal Medicine
DX: K72.90 Hepatic failure, unspecified without coma (principal); G93.41 Metabolic encephalopathy; J96.90 Respiratory failure, unspecified, unspecified whether with hypoxia or hypercapnia; C22.0 Liver cell carcinoma; D61.818 Other pancytopenia; N17.9 Acute kidney failure, unspecified; I85.10 Secondary esophageal varices without bleeding; D68.9 Coagulation defect, unspecified; K70.30 Alcoholic cirrhosis of liver without ascites; I10 Essential (primary) hypertension; E78.5 Hyperlipidemia, unspecified; E11.9 Type 2 diabetes mellitus without complications; K52.9 Noninfective gastroenteritis and colitis, unspecified; E66.9 Obesity, unspecified; K80.20 Calculus of gallbladder without cholecystitis without obstruction; R13.10 Dysphagia, unspecified

== ENCOUNTER 2019-02-07 18:18 | Inpatient (IN) | payer MEDICARE ==
[2019-02-07 18:19] VITALS: BMI 33.6
--- NOTE | 2019-02-07 19:10 | ED PDOC ---
HPI: SOB/CHF/COPD Time Seen by Provider: 02/07/19 18:43 Chief Complaint (Nursing): Shortness Of Breath Chief Complaint (Provider): Hepatic encephalopathy History Per: Patient Additional Complaint(s): 69 years old male patient with history of alcoholic cirrhosis and liver cancer was admitted to ICU for hepatic encephalopathy with ammonia level of 360 and acute renal failure adding to metabolic encephalopathy with prolonged intubation. Patient extubated currently weak and having difficulty swallowing. Patient admitted to acute rehab for PT OT speech therapy and speech for swallow training; however, due to complaints of wheezing and SOB. Pt sent to ED for further evaluation and management. Pts PMD, Dr. Rowe, contacted and requesting admit to tele Past Medical History Reviewed: Nursing Documentation, Vital Signs Vital Signs: Last Vital Signs Temp 98.1 F 02/07/19 18:20 Pulse 119 H 02/07/19 18:30 Resp 21 02/07/19 18:30 BP 113/60 02/07/19 18:30 Pulse Ox 98 02/07/19 18:30 - Medical History PMH: Diabetes, Gastritis, HTN, Hypercholesterolemia Denies: Depression, Deep Vein Thrombosis, HIV, Chronic Kidney Disease ( denies hx) - Surgical History Surgical History: Denies: Pacemaker - Family History Family History: States: Unknown Family Hx - Living Arrangements Living Arrangements: Other (Came from Rehab) - Social History Current smoker - smoking cessation education provided: No Alcohol: None Drugs: Denies - Immunization History Hx Tetanus Toxoid Vaccination: No Hx Influenza Vaccination: No Hx Pneumococcal Vaccination: No - Home Medications Home Medications: Ambulatory Orders Medication Instructions Recorded Carvedilol [Coreg] 6.25 mg PO Q12 09/24/18 Acetaminophen [Tylenol 650 mg PO Q6 PRN 02/01/19 650mg/20.3ml solution UD] Acetylcysteine 20% [Acetylcysteine 4 ml IH BID 02/01/19 4 Ml] Albuterol 0.083% [Albuterol 3 ml IH BID 02/01/19 Sulfate 3 Ml] Benzonatate [Tessalon Perles] 100 mg PO Q8 PRN 02/01/19 Cilostazol [Pletal] 50 mg PO Q12 02/01/19 DiphenhydrAMINE [Benadryl] 50 mg IVP Q6 02/01/19 Folic Acid 1 mg PO DAILY 02/01/19 Haloperidol Lactate [Haloperidol 5 mg IM Q6 02/01/19 Lactate [facility]] Insulin Detemir [Levemir] 18 unit SC HS 02/01/19 Lactulose [Enulose] 20 gm PO Q12 02/01/19 Levothyroxine [Synthroid] 50 mcg PO DAILY 02/01/19 Pantoprazole [Protonix] 40 mg PO DAILY 02/01/19 Spironolactone [Aldactone] 50 mg PO DAILY 02/01/19 Tamsulosin [Flomax] 0.4 mg PO DAILY 02/01/19 Thiamine HCl [Vitamin B-1] 100 mg PO DAILY 02/01/19 Dextrose 50% [Dextrose 50% Inj] 50 ml IVP STAT PRN 02/02/19 Dextrose Oral [Glutose 15] 15 gm PO ONCE PRN 02/02/19 Glucagon [Glucagen Diagnostic Kit] 1 mg IM ONCE PRN 02/02/19 - Allergies Allergies/Adverse Reactions: Allergies Allergy/AdvReac Type Severity Reaction Status Date / Time No Known Allergies Allergy Verified 02/01/19 20:20 Review of Systems ROS Statement: Except As Marked, All Systems Reviewed And Found Negative - ECG O2 Sat by Pulse Oximetry: 98 Medical Decision Making Medical Decision Making: Case discussed with ED MD, Dr. Comer. Arrangements made for admission. Dr. Jae garcia orders Disposition - Clinical Impression Clinical Impression: Encephalopathy - Patient ED Disposition Is Patient to be Admitted: Yes - Disposition Disposition Time: 19:13 Condition: STABLE Instructions: Hepatic Encephalopathy (DC) Forms: [employer] (Setswana)
[2019-02-07 20:29] LABS: BASO % 0.1 % (0.0-2.0); HEMOGLOBIN 9.4 g/dL (12.0-18.0); LYMPH # 0.7 K/uL (1.0-4.3); LYMPH % 7.2 % (20.0-40.0); MEAN CELL VOLUME 112.2 fl (80.0-94.0); MEAN CORPUSCULAR HEMOGLOBIN 39.2 pg (27.0-31.0); MEAN CORPUSCULAR HGB CONC 34.9 g/dL (33.0-37.0); MEAN PLATELET VOLUME 9.8 fl (7.2-11.7); MONO # 0.8 K/uL (0.0-0.8); MONO % 8.3 % (0.0-10.0); NEUT # 8.3 K/uL (1.8-7.0); NEUT % 84.4 % (50.0-75.0); NRBC % 0.1 % (0.0-0.0); PLATELET COUNT 80 K/uL (130-400); WHITE BLOOD COUNT 9.8 K/uL (4.8-10.8)
[2019-02-07 21:00] LABS: ALB/GLOB RATIO 0.6 (1.0-2.1); ALBUMIN 2.6 g/dL (3.5-5.0); ALT/SGPT 48 U/L (21-72); AST/SGOT 55 U/L (17-59); BLOOD UREA NITROGEN 30 mg/dl (9-20); GFR NON-AFRICAN AMERICAN > 60
[2019-02-07 21:06] LABS: BANDS 4 % (0-2); LYMPHOCYTE 11 % (20-50); MONOCYTE 8 % (0-10); NEUTROPHIL 77 % (42-75); PLATELET ESTIMATE DECREASED (NORMAL); TOTAL CELLS COUNTED 100
[2019-02-07 21:07] LABS: ANISOCYTOSIS MODERATE; OVALOCYTES SLIGHT; POIKILOCYTOSIS MODERATE; POLYCHROMIC SLIGHT
[2019-02-07] MEDS ORDERED: Iodixanol 320 MG/ML 100 ML BOTTLE IV ONE (21:11)
[2019-02-07] MEDS ORDERED: Sodium Chloride 0.9% 50 ML IV ONE (21:11)
[2019-02-07] MEDS ORDERED: Albuterol-Ipratrop 3 mg / 0.5 (3 ml) UD IH STA (22:32)
[2019-02-07] MEDS ORDERED: Albuterol-Ipratrop 3 mg / 0.5 (3 ml) UD ONE (22:41)
[2019-02-07] MEDS ORDERED: Piperacillin/Tazobact 3.375 GM in Sodium Chloride 0.9% 100 ML IV ONE (22:48)
--- NOTE | 2019-02-07 22:50 | ED PDOC ---
- Laboratory Results Result Diagrams: 02/07/19 20:00 02/07/19 20:00 Lab Results: Total Bilirubin 1.3 mg/dl (0.2-1.3) 02/07/19 20:00 AST 55 U/L (17-59) 02/07/19 20:00 ALT 48 U/L (21-72) 02/07/19 20:00 Alkaline Phosphatase 166 U/L (38-126) H 02/07/19 20:00 Total Protein 6.9 G/DL (6.3-8.2) 02/07/19 20:00 Albumin 2.6 g/dL (3.5-5.0) L D 02/07/19 20:00 Globulin 4.3 gm/dL (2.2-3.9) H 02/07/19 20:00 Albumin/Globulin Ratio 0.6 (1.0-2.1) L 02/07/19 20:00 - ECG O2 Sat by Pulse Oximetry: 100 - Progress ED Course And Treament: Case endorsed to writer producer from Rosalia MAHER pending labs, CT and telemetry admission EXAM: CTA Chest with Intravenous Contrast for Pulmonary Embolism CLINICAL HISTORY: SOB TECHNIQUE: Axial CTA images of the chest with intravenous contrast using a pulmonary embolism protocol. Reconstructed images were created and reviewed. 324.79 mGy-cm CONTRAST: With; [id number] 73ML was administered without incident. COMPARISON: None provided. FINDINGS: TRACHEA: Aspirated gastric contents are seen in the upper thoracic trachea. PULMONARY ARTERIES No evidence of central or segmental pulmonary embolism is seen. AORTA There is no evidence for aneurysm or dissection of the thoracic aorta. LUNGS Moderate size posterior bibasilar pneumonic consolidations are noted likely compatible with aspiration pneumonitis. PLEURAL SPACES No pneumothorax evident. No pleural effusions. HEART Normal heart size. No pericardial effusion. A left upper extremity PICC line is identified with its lower tip in the SVC. LYMPH NODES No lymphadenopathy is evident. BONES No focal osseous abnormality or acute fracture. BREASTS: Moderate bilateral gynecomastia is noted. UPPER ABDOMEN Images of the upper abdomen demonstrates the presence of a CBD biliary drainage catheter. Additionally, there is small size of the liver with a nodular hepatic surface contour compatible with cirrhosis. IMPRESSION: 1. No identification of PE. 2. Moderate bibasilar aspiration pneumonitis. 3. Aspirated gastric contents are seen in the upper thoracic tracheal lumen. 4. A left upper extremity PICC line is present appearing to reside in satisfactory position. 5. Evidence of cirrhosis of the liver. 6. A CBD biliary drainage catheter is noted. 7. Moderate bilateral gynecomastia Case discussed with ED attending Dr. Comer, will start IV Zosyn and draw blood cultures Findings discussed with Dr. Rowe, recommends checking PT/PTT and admit to telemetry as planned Disposition - Clinical Impression Clinical Impression: Encephalopathy, Aspiration pneumonitis - POA Present On Arrival: None - Disposition Disposition: Admitted as In-Patient Disposition Time: 23:06 Condition: FAIR
[2019-02-07] MEDS ORDERED: Piperacillin/Tazobact 3.375 gm Inj IVPB ONE (23:09)
[2019-02-07 23:30] LABS: INR 1.6; PROTHROMBIN TIME 17.7 Seconds (9.8-13.1)
[2019-02-07 23:33] LABS: PARTIAL THROMBOPLASTIN TIME 26.2 Seconds (25.6-37.1)
[2019-02-08] MEDS ORDERED: DiphenhydrAMINE 50 mg/ml Inj IVP PRN (01:13)
[2019-02-08] MEDS ORDERED: Glucagon Recombinant 1 mg Inj IM ONE (01:18)
[2019-02-08] MEDS ORDERED: Dextrose 50% SYRINGE Inj (50 ml) IV PRN (01:21)
[2019-02-08] MEDS ORDERED: Acetaminophen 650mg/20.3ml solution UD PO PRN (01:35)
[2019-02-08] MEDS: Sodium Chloride 0.9% 1,000 ML IV SCH (02:48)
[2019-02-08] MEDS: Piperacillin/Tazobact 3.375 GM in Sodium Chloride 0.9% 100 ML IVPB SCH ×2 (04:43→10:00)
[2019-02-08] MEDS: Insulin Lispro (humaLOG) 100 Units/ml Inj SC SCH ×4 (06:33→22:47)
[2019-02-08] MEDS: Levothyroxine 50 MCG TAB PO SCH (06:37)
--- NOTE | 2019-02-08 08:35 | RAD ---
Date of service: 02/07/2019 HISTORY: SOB COMPARISON: Portable chest 01/30/2019. TECHNIQUE: 1 view obtained. FINDINGS: LUNGS: Limited medial basilar patchy density left base questionable air bronchograms. Overall aeration is improved bilaterally nevertheless. No right-sided infiltrate appreciable. PLEURA: No significant pleural effusion identified, no pneumothorax apparent. CARDIOVASCULAR: No aortic atherosclerotic calcification present. Stable cardiac silhouette appreciated. No pulmonary vascular congestion. OSSEOUS STRUCTURES: No significant abnormalities. VISUALIZED UPPER ABDOMEN: Questionable embolic material left upper quadrant abdomen. OTHER FINDINGS: None. IMPRESSION: Improved aeration bilaterally with limited airspace disease question medial left base. No pulmonary vascular congestion.
[2019-02-08] MEDS ORDERED: Piperacillin/Tazobact 3.375 GM in Sodium Chloride 0.9% 100 ML IVPB SCH (09:00)
--- NOTE | 2019-02-08 09:38 | CARD ---
APPROVED REPORT Date of service: 02/07/2019 EKG Measurement Heart [id number] <Conclusion> Normal sinus rhythm Minimal voltage criteria for LVH, may be normal variant Borderline ECG
--- NOTE | 2019-02-08 10:19 | CT ---
Date of service: 02/07/2019 PROCEDURE: 01/15/2019. CT thorax HISTORY: SOB, hx malignancy COMPARISON: None available. TECHNIQUE: Axial computed tomography images were obtained of the chest in the pulmonary arterial phase of enhancement. Coronal and sagittal reformatted images were created and reviewed. Intravenous contrast dose: 73 cc Visipaque 320. Mean Hounsfield value in the main pulmonary artery: 239.07 Radiation dose: Total exam DLP = 324.79 mGy-cm. This CT exam was performed using one or more of the following dose reduction techniques: Automated exposure control, adjustment of the mA and/or kV according to patient size, and/or use of iterative reconstruction technique. FINDINGS: PULMONARY ARTERIES: Unremarkable. No pulmonary embolism. AORTA: No acute findings. No thoracic aortic aneurysm. No atherosclerotic calcification or mural plaque present. LUNGS: Persistent lower lobe infiltrates unchanged. Debris identified in the trachea. The patient was previously intubated now extubated. PLEURAL SPACES: Trace bilateral pleural effusions unchanged. HEART: Unremarkable. No cardiomegaly. No significant pericardial effusion. LYMPH NODES: No lymphadenopathy. BONES, CHEST WALL: Unremarkable. No fracture or destructive lesion OTHER FINDINGS: Gynecomastia. Incomplete visualization of cirrhotic liver and portosystemic shunt. IMPRESSION: Unremarkable CT pulmonary angiogram. No pulmonary embolus. Limitations of the current study both qualitative and quantitative assessment of opacification of the pulmonary arterial system precludes assessment at and below the segmental branch levels. Stable lower lobe infiltrates/atelectasis. Status post extubation, debris identified within the trachea. Concordant results (preliminary interpretation) provided by [facility]. Procedure Completed: 21:51. Preliminary Report: Interpreted and electronically signed: 22:37. Final Interpretation: 10:15. February 08, 2019.
[2019-02-08] MEDS ORDERED: Sodium Chloride 3% for Inhalation 4 ML VIAL.NEB IH PRN (10:24)
--- NOTE | 2019-02-08 10:59 | CP.PCM.CON ---
History of Present Illness - History of Present Illness History of Present Illness: 69 year old male with a history of HTN, HL, liver cirrhosis, hepatocellular carcinoma, sent from TCU with shortness of breath, admitted with aspiration pneumonia. The patient currently notes to shortness of breath and difficulty clearing his secretions. A CT chest was concerning for aspiration. He is currently on antibiotics. He remains alert and oriented. Past medical history: HTN, HL, liver cirrhosis, HCC Past surgical history: Denies Family history: Denies hematologic and oncologic problems Social history: Denies tobacco, alcohol, and illicit drug use. Allergies: NKA Review of systems: All remaining review of systems including HEENT, cardiovascular, respiratory, gastrointestinal, genitourinary, musculoskeletal, deramtologic, neurologic, and psychiatric are negative unless mentioned in the HPI. Past Patient History - Infectious Disease Hx of Infectious Diseases: None - Past Medical History & Family History Past Medical History?: Yes - Past Social History Smoking Status: Never Smoked - CARDIAC Hx Cardiac Disorders: Yes Hx Hypercholesterolemia: Yes Hx Hypertension: Yes Hx Pacemaker: No - PULMONARY Hx Respiratory Disorders: No Other/Comment: h/o acute respiratory failure, bacterial pneumonia. - NEUROLOGICAL Hx Neurological Disorder: No - HEENT Hx HEENT Problems: Yes Hx Cataracts: Yes - RENAL Hx Chronic Kidney Disease: Yes ( denies hx) Hx Renal Failure: Yes - ENDOCRINE/METABOLIC Hx Endocrine Disorders: Yes Hx Diabetes Mellitus Type 2: Yes - HEMATOLOGICAL/ONCOLOGICAL Hx Blood Disorders: Yes Hx AIDS: No Hx Cancer: Yes Hx Human Immunodeficiency Virus (HIV): No - INTEGUMENTARY Hx Dermatological Problems: No - MUSCULOSKELETAL/RHEUMATOLOGICAL Hx Musculoskeletal Disorders: No Hx Falls: No - GASTROINTESTINAL Hx Gastrointestinal Disorders: Yes Hx Gastritis: Yes - GENITOURINARY/GYNECOLOGICAL Hx Genitourinary Disorders: Yes Hx Prostate Problems: Yes - PSYCHIATRIC Hx Psychophysiologic Disorder: No Hx Substance Use: No - SURGICAL HISTORY Hx Surgeries: No Hx Mastectomy: No - ANESTHESIA Hx Anesthesia: Yes Hx Anesthesia Reactions: Yes (per "coma") Hx Malignant Hyperthermia: No Meds Allergies/Adverse Reactions: Allergies Allergy/AdvReac Type Severity Reaction Status Date / Time No Known Allergies Allergy Verified 02/01/19 20:20 - Medications Medications: Current Medications Acetaminophen (Tylenol 650mg/20.3ml Solution Ud) 650 mg PO Q6 PRN PRN Reason: Temperature Albuterol/Ipratropium (Duoneb 3 Mg/0.5 Mg (3 Ml) Ud) 3 ml INH RQ4 PRN PRN Reason: Shortness of Breath Benzonatate (Tessalon Perles) 100 mg PO Q8 PRN PRN Reason: Cough Carvedilol (Coreg) 6.25 mg PO Q12 [facility] Dextrose (Dextrose 50% Inj) 0 ml IV STAT PRN; Protocol PRN Reason: Hypoglycemia Protocol Dextrose (Glutose 15) 15 gm PO ONCE PRN PRN Reason: Hypoglycemia Dextrose (Glutose 15) 0 gm PO ONCE PRN; Protocol PRN Reason: Hypoglycemia Protocol Diphenhydramine HCl (Benadryl) 50 mg IVP Q6 PRN PRN Reason: Agitation Folic Acid (Folic Acid) 1 mg PO DAILY [facility] Furosemide (Lasix) 20 mg PO DAILY [facility] Haloperidol Lactate (Haldol) 5 mg IM Q6 PRN PRN Reason: Agitation Sodium Chloride (Sodium Chloride 0.9%) 1,000 mls @ 100 mls/hr IV .Q10H [facility] Stop: 02/09/19 01:07 Last Admin: 02/08/19 02:48 Dose: 100 mls/hr Piperacillin Sod/Tazobactam (Sod 3.375 gm/ Sodium Chloride) 100 mls @ 100 mls/hr IVPB Q6 [facility]; Protocol Last Admin: 02/08/19 10:00 Dose: 100 mls/hr Insulin Human Lispro (Humalog) 0 units SC ACHS [facility]; Protocol Last Admin: 02/08/19 06:33 Dose: Not Given Lactulose (Enulose) 20 gm PO TID [facility] Levothyroxine Sodium (Synthroid) 50 mcg PO DAILY@0630 [facility] Last Admin: 02/08/19 06:37 Dose: 50 mcg Pantoprazole Sodium (Protonix Susp) 40 mg PO DAILY [facility] Prednisone (Prednisone Tab) 20 mg PO DAILY [facility] Stop: 02/09/19 09:01 Prednisone (Prednisone Tab) 15 mg PO DAILY [facility] Stop: 02/14/19 23:59 Prednisone (Prednisone Tab) 10 mg PO DAILY [facility] Stop: 02/17/19 23:59 Prednisone (Prednisone Tab) 5 mg PO DAILY [facility] Stop: 02/21/19 23:59 Rifaximin (Xifaxan) 550 mg PO BID [facility]; Protocol Spironolactone (Aldactone) 50 mg PO DAILY [facility] Tamsulosin HCl (Flomax) 0.4 mg PO DAILY [facility] Thiamine HCl (Vitamin B1 Tab) 100 mg PO DAILY [facility] Physical Exam - Head Exam Head Exam: ATRAUMATIC - Eye Exam Eye Exam: Normal appearance - ENT Exam ENT Exam: Mucous Membranes Dry - Respiratory Exam Respiratory Exam: Decreased Breath Sounds - Cardiovascular Exam Cardiovascular Exam: +S1, +S2 - GI/Abdominal Exam GI & Abdominal Exam: Normal Bowel Sounds - Extremities Exam Extremities exam: Positive for: pedal edema - Neurological Exam Neurological exam: Oriented x3 - Psychiatric Exam Psychiatric exam: Normal Affect, Normal Mood - Skin Skin Exam: Warm Results - Vital Signs Recent Vital Signs: Last Vital Signs Temp 98.3 F 02/08/19 08:04 Pulse 87 02/08/19 08:04 Resp 18 02/08/19 08:04 BP 115/72 02/08/19 08:04 Pulse Ox 97 02/08/19 08:04 - Labs Result Diagrams: 02/09/19 16:34 02/09/19 16:34 Labs: Laboratory Results - last 24 hr 02/07/19 02/07/19 02/07/19 20:00 20:00 20:00 WBC 9.8 D RBC 2.40 L Hgb 9.4 L Hct 26.9 L MCV 112.2 H MCH 39.2 H MCHC 34.9 RDW 15.0 H Plt Count 80 L MPV 9.8 Neut % (Auto) 84.4 H Lymph % (Auto) 7.2 L [place] % (Auto) 8.3 Eos % (Auto) 0.0 Baso % (Auto) 0.1 Neut # (Auto) 8.3 H Lymph # (Auto) 0.7 L [place] # (Auto) 0.8 Eos # (Auto) 0.0 Baso # (Auto) 0.0 Neutrophils % (Manual) 77 H Band Neutrophils % 4 H Lymphocytes % (Manual) 11 L Monocytes % (Manual) 8 Platelet Estimate Decreased L Polychromasia Slight Poikilocytosis (manual Moderate Anisocytosis (manual) Moderate Macrocytosis (manual) Slight Ovalocytes Slight PT INR APTT Sodium 133 Potassium 5.3 H Chloride 103 Carbon Dioxide 24 Anion Gap 11 BUN 30 H Creatinine 0.8 Est GFR ( Amer) > 60 Est GFR (Non-Af Amer) > 60 POC Glucose (mg/dL) Random Glucose 176 H Calcium 9.0 Phosphorus 3.3 Magnesium 1.9 Total Bilirubin 1.3 AST 55 ALT 48 Alkaline Phosphatase 166 H Ammonia 23 D Total Protein 6.9 Albumin 2.6 L D Globulin 4.3 H Albumin/Globulin Ratio 0.6 L 02/07/19 02/08/19 02/08/19 23:00 01:24 05:20 WBC RBC Hgb Hct MCV MCH MCHC RDW Plt Count MPV Neut % (Auto) Lymph % (Auto) [place] % (Auto) Eos % (Auto) Baso % (Auto) Neut # (Auto) Lymph # (Auto) [place] # (Auto) Eos # (Auto) Baso # (Auto) Neutrophils % (Manual) Band Neutrophils % Lymphocytes % (Manual) Monocytes % (Manual) Platelet Estimate Polychromasia Poikilocytosis (manual Anisocytosis (manual) Macrocytosis (manual) Ovalocytes PT 17.7 H INR 1.6 APTT 26.2 Sodium Potassium Chloride Carbon Dioxide Anion Gap BUN Creatinine Est GFR ( Amer) Est GFR (Non-Af Amer) POC Glucose (mg/dL) 264 H 284 H Random Glucose Calcium Phosphorus Magnesium Total Bilirubin AST ALT Alkaline Phosphatase Ammonia Total Protein Albumin Globulin Albumin/Globulin Ratio Assessment & Plan (1) Anemia Assessment and Plan: anemia w/u sent Status: Acute (2) Thrombocytopenia Assessment and Plan: secondary to liver disease, splenic sequestration Status: Acute (3) Coagulopathy Assessment and Plan: secondary to liver cirrhosis Status: Acute (4) Hepatocellular carcinoma Assessment and Plan: outpatient treatment Thank you for this interesting consult. Status: Acute
--- NOTE | 2019-02-08 11:17 | CP.PCM.CON ---
History of Present Illness - History of Present Illness History of Present Illness: Infectious Disease Consultation Note- asked to see this patietn for ? aspiration Pneumonia ( follow up consult). HPI- Patient is a 69 year old male with PMH of ETOH kiver cirrhosis, Liver CA, DM II Chronic renal disease . hepatic encephalopathy who was brought in by his family on 01/06/2019 for altered mental status and confusion and was taken to ICU for worsening mental status and was intubated and was intubated and he was found to have fever sputum cx klebsiella and pseudomonas and I had seen him at that time and started hm on both IV meropnem and he was eventually extubated and clinically much improved and completed 11 days of IV meropenem and was trasnferred to acute rehab. apparently yesterday pt. c/o sob and was transferred to ED and evaluated and now is admitted to tele unit and is on nasal canula for oxygenation. Patient explains for past 2 days he has been feeling sob which is new for him. he denies any fever or chills, denies any phlegm but he has been eating past few days. he states he feels better now compared to yesterday. he is alert and oriented. he says he is hungry. Review of Systems - Review of Systems Review of Systems: ROS- denies any fever or chills, denies any HART, had cough yesterday but no phlegm, + Sob for past 2 days, denies any chest pain, denies any nausea or vomiting, denies any abd. pain, denies any dysurea Past Patient History - Infectious Disease Hx of Infectious Diseases: None - Past Medical History & Family History Past Medical History?: Yes - Past Social History Smoking Status: Never Smoked - CARDIAC Hx Cardiac Disorders: Yes Hx Hypercholesterolemia: Yes Hx Hypertension: Yes Hx Pacemaker: No - PULMONARY Hx Respiratory Disorders: No Other/Comment: h/o acute respiratory failure, bacterial pneumonia. - NEUROLOGICAL Hx Neurological Disorder: No - HEENT Hx HEENT Problems: Yes Hx Cataracts: Yes - RENAL Hx Chronic Kidney Disease: Yes ( denies hx) Hx Renal Failure: Yes - ENDOCRINE/METABOLIC Hx Endocrine Disorders: Yes Hx Diabetes Mellitus Type 2: Yes - HEMATOLOGICAL/ONCOLOGICAL Hx Blood Disorders: Yes Hx Cancer: Yes - INTEGUMENTARY Hx Dermatological Problems: No - MUSCULOSKELETAL/RHEUMATOLOGICAL Hx Musculoskeletal Disorders: No Hx Falls: No - GASTROINTESTINAL Hx Gastrointestinal Disorders: Yes Hx Gastritis: Yes - GENITOURINARY/GYNECOLOGICAL Hx Genitourinary Disorders: Yes Hx Prostate Problems: Yes - PSYCHIATRIC Hx Psychophysiologic Disorder: No Hx Substance Use: No - SURGICAL HISTORY Hx Surgeries: No Hx Mastectomy: No - ANESTHESIA Hx Anesthesia: Yes Hx Anesthesia Reactions: Yes (per "coma") Hx Malignant Hyperthermia: No Meds Allergies/Adverse Reactions: Allergies Allergy/AdvReac Type Severity Reaction Status Date / Time No Known Allergies Allergy Verified 02/01/19 20:20 - Medications Medications: Current Medications Acetaminophen (Tylenol 650mg/20.3ml Solution Ud) 650 mg PO Q6 PRN PRN Reason: Temperature Albuterol/Ipratropium (Duoneb 3 Mg/0.5 Mg (3 Ml) Ud) 3 ml INH RQ4 PRN PRN Reason: Shortness of Breath Benzonatate (Tessalon Perles) 100 mg PO Q8 PRN PRN Reason: Cough Carvedilol (Coreg) 6.25 mg PO Q12 [facility] Dextrose (Dextrose 50% Inj) 0 ml IV STAT PRN; Protocol PRN Reason: Hypoglycemia Protocol Dextrose (Glutose 15) 15 gm PO ONCE PRN PRN Reason: Hypoglycemia Dextrose (Glutose 15) 0 gm PO ONCE PRN; Protocol PRN Reason: Hypoglycemia Protocol Diphenhydramine HCl (Benadryl) 50 mg IVP Q6 PRN PRN Reason: Agitation Folic Acid (Folic Acid) 1 mg PO DAILY [facility] Furosemide (Lasix) 20 mg PO DAILY [facility] Haloperidol Lactate (Haldol) 5 mg IM Q6 PRN PRN Reason: Agitation Sodium Chloride (Sodium Chloride 0.9%) 1,000 mls @ 100 mls/hr IV .Q10H [facility] Stop: 02/09/19 01:07 Last Admin: 02/08/19 02:48 Dose: 100 mls/hr Piperacillin Sod/Tazobactam (Sod 3.375 gm/ Sodium Chloride) 100 mls @ 100 mls/hr IVPB Q6 [facility]; Protocol Last Admin: 02/08/19 10:00 Dose: 100 mls/hr Insulin Human Lispro (Humalog) 0 units SC ACHS [facility]; Protocol Last Admin: 02/08/19 06:33 Dose: Not Given Lactulose (Enulose) 20 gm PO TID [facility] Levothyroxine Sodium (Synthroid) 50 mcg PO DAILY@0630 [facility] Last Admin: 02/08/19 06:37 Dose: 50 mcg Pantoprazole Sodium (Protonix Susp) 40 mg PO DAILY [facility] Prednisone (Prednisone Tab) 20 mg PO DAILY [facility] Stop: 02/09/19 09:01 Prednisone (Prednisone Tab) 15 mg PO DAILY [facility] Stop: 02/14/19 23:59 Prednisone (Prednisone Tab) 10 mg PO DAILY [facility] Stop: 02/17/19 23:59 Prednisone (Prednisone Tab) 5 mg PO DAILY [facility] Stop: 02/21/19 23:59 Rifaximin (Xifaxan) 550 mg PO BID [facility]; Protocol Spironolactone (Aldactone) 50 mg PO DAILY [facility] Tamsulosin HCl (Flomax) 0.4 mg PO DAILY [facility] Thiamine HCl (Vitamin B1 Tab) 100 mg PO DAILY [facility] Physical Exam - Constitutional Appears: No Acute Distress - Head Exam Head Exam: ATRAUMATIC - Eye Exam Eye Exam: EOMI - ENT Exam ENT Exam: Normal Oropharynx - Neck Exam Neck exam: Positive for: Full Rom - Respiratory Exam Additional comments: slight tachypnea no wheezing decreased breath sound at right base - Cardiovascular Exam Cardiovascular Exam: RRR, +S1, +S2 - GI/Abdominal Exam GI & Abdominal Exam: Normal Bowel Sounds, Soft Additional comments: NT, ND - Extremities Exam Extremities exam: Positive for: normal inspection - Neurological Exam Neurological exam: Alert, Oriented x3 Results - Vital Signs Recent Vital Signs: Last Vital Signs Temp 98.3 F 02/08/19 08:04 Pulse 87 02/08/19 08:04 Resp 18 02/08/19 08:04 BP 115/72 02/08/19 08:04 Pulse Ox 97 02/08/19 08:04 - Labs Result Diagrams: 02/07/19 20:00 02/07/19 20:00 Labs: Laboratory Results - last 24 hr 02/07/19 02/07/19 02/07/19 20:00 20:00 20:00 WBC 9.8 D RBC 2.40 L Hgb 9.4 L Hct 26.9 L MCV 112.2 H MCH 39.2 H MCHC 34.9 RDW 15.0 H Plt Count 80 L MPV 9.8 Neut % (Auto) 84.4 H Lymph % (Auto) 7.2 L [place] % (Auto) 8.3 Eos % (Auto) 0.0 Baso % (Auto) 0.1 Neut # (Auto) 8.3 H Lymph # (Auto) 0.7 L [place] # (Auto) 0.8 Eos # (Auto) 0.0 Baso # (Auto) 0.0 Neutrophils % (Manual) 77 H Band Neutrophils % 4 H Lymphocytes % (Manual) 11 L Monocytes % (Manual) 8 Platelet Estimate Decreased L Polychromasia Slight Poikilocytosis (manual Moderate Anisocytosis (manual) Moderate Macrocytosis (manual) Slight Ovalocytes Slight PT INR APTT Sodium 133 Potassium 5.3 H Chloride 103 Carbon Dioxide 24 Anion Gap 11 BUN 30 H Creatinine 0.8 Est GFR ( Amer) > 60 Est GFR (Non-Af Amer) > 60 POC Glucose (mg/dL) Random Glucose 176 H Calcium 9.0 Phosphorus 3.3 Magnesium 1.9 Total Bilirubin 1.3 AST 55 ALT 48 Alkaline Phosphatase 166 H Ammonia 23 D Total Protein 6.9 Albumin 2.6 L D Globulin 4.3 H Albumin/Globulin Ratio 0.6 L 02/07/19 02/08/19 02/08/19 23:00 01:24 05:20 WBC RBC Hgb Hct MCV MCH MCHC RDW Plt Count MPV Neut % (Auto) Lymph % (Auto) [place] % (Auto) Eos % (Auto) Baso % (Auto) Neut # (Auto) Lymph # (Auto) [place] # (Auto) Eos # (Auto) Baso # (Auto) Neutrophils % (Manual) Band Neutrophils % Lymphocytes % (Manual) Monocytes % (Manual) Platelet Estimate Polychromasia Poikilocytosis (manual Anisocytosis (manual) Macrocytosis (manual) Ovalocytes PT 17.7 H INR 1.6 APTT 26.2 Sodium Potassium Chloride Carbon Dioxide Anion Gap BUN Creatinine Est GFR ( Amer) Est GFR (Non-Af Amer) POC Glucose (mg/dL) 264 H 284 H Random Glucose Calcium Phosphorus Magnesium Total Bilirubin AST ALT Alkaline Phosphatase Ammonia Total Protein Albumin Globulin Albumin/Globulin Ratio 02/08/19 10:57 WBC RBC Hgb Hct MCV MCH MCHC RDW Plt Count MPV Neut % (Auto) Lymph % (Auto) [place] % (Auto) Eos % (Auto) Baso % (Auto) Neut # (Auto) Lymph # (Auto) [place] # (Auto) Eos # (Auto) Baso # (Auto) Neutrophils % (Manual) Band Neutrophils % Lymphocytes % (Manual) Monocytes % (Manual) Platelet Estimate Polychromasia Poikilocytosis (manual Anisocytosis (manual) Macrocytosis (manual) Ovalocytes PT INR APTT Sodium Potassium Chloride Carbon Dioxide Anion Gap BUN Creatinine Est GFR ( Amer) Est GFR (Non-Af Amer) POC Glucose (mg/dL) 299 H Random Glucose Calcium Phosphorus Magnesium Total Bilirubin AST ALT Alkaline Phosphatase Ammonia Total Protein Albumin Globulin Albumin/Globulin Ratio Microbiology 01/18/19 17:39 Blood-Venous Blood Culture - Final 01/18/19 17:39 Blood-Venous Gram Stain - Final NO GROWTH AFTER 5 DAYS TEST NOT PERFORMED 01/18/19 12:20 Blood-Venous Blood Culture - Final 01/18/19 12:20 Blood-Venous Gram Stain - Final NO GROWTH AFTER 5 DAYS TEST NOT PERFORMED 01/17/19 18:20 Sputum Gram Stain - Final 01/17/19 18:20 Sputum Sputum Culture - Final Pseudomonas Aeruginosa 01/15/19 18:40 Blood Blood Culture - Final 01/15/19 18:40 Blood Gram Stain - Final NO GROWTH AFTER 5 DAYS TEST NOT PERFORMED 01/15/19 17:45 Blood Blood Culture - Final 01/15/19 17:45 Blood Gram Stain - Final NO GROWTH AFTER 5 DAYS TEST NOT PERFORMED 01/10/19 21:25 Trachasp Gram Stain - Final 01/10/19 21:25 Trachasp Sputum Culture - Final Klebsiella Oxytoca Pseudomonas Aeruginosa Accession No. : [id number] Patient Name / ID : SUSAN Quiros / [id number] Exam Date : 02/07/2019 19:55:35 ( Approved ) Study Comment : Sex / Age : M / 69Y Creator : Adrián Joshi MD Dictator : Adrián Joshi MD Mechanical Handyman : Marketing Analytics Specialist : Adrián Joshi MD Approver2 : Report Date : 02/08/2019 08:31:51 My Comment : Date of service: 02/07/2019 HISTORY: SOB COMPARISON: Portable chest 01/30/2019. TECHNIQUE: 1 view obtained. FINDINGS: LUNGS: Limited medial basilar patchy density left base questionable air bronchograms. Overall aeration is improved bilaterally nevertheless. No right-sided infiltrate appreciable. PLEURA: No significant pleural effusion identified, no pneumothorax apparent. CARDIOVASCULAR: No aortic atherosclerotic calcification present. Stable cardiac silhouette appreciated. No pulmonary vascular congestion. OSSEOUS STRUCTURES: No significant abnormalities. VISUALIZED UPPER ABDOMEN: Questionable embolic material left upper quadrant abdomen. OTHER FINDINGS: None. IMPRESSION: Improved aeration bilaterally with limited airspace disease question medial left base. No pulmonary vascular congestion. Accession No. : [id number] Patient Name / ID : SUSAN ROMERO K / [id number] Exam Date : 02/07/2019 21:43:26 ( Approved ) Study Comment : Sex / Age : M / 69Y Creator : Ravi Dozier MD Dictator : Ravi Dozier MD Mechanical Handyman : Marketing Analytics Specialist : Ravi Dozier MD Approver2 : Report Date : 02/08/2019 10:15:22 My Comment : Date of service: 02/07/2019 PROCEDURE: 01/15/2019. CT thorax HISTORY: SOB, hx malignancy COMPARISON: None available. TECHNIQUE: Axial computed tomography images were obtained of the chest in the pulmonary arterial phase of enhancement. Coronal and sagittal reformatted images were created and reviewed. Intravenous contrast dose: 73 cc Visipaque 320. Mean Hounsfield value in the main pulmonary artery: 239.07 Radiation dose: Total exam DLP = 324.79 mGy-cm. This CT exam was performed using one or more of the following dose reduction techniques: Automated exposure control, adjustment of the mA and/or kV according to patient size, and/or use of iterative reconstruction technique. FINDINGS: PULMONARY ARTERIES: Unremarkable. No pulmonary embolism. AORTA: No acute findings. No thoracic aortic aneurysm. No atherosclerotic calcification or mural plaque present. LUNGS: Persistent lower lobe infiltrates unchanged. Debris identified in the trachea. The patient was previously intubated now extubated. PLEURAL SPACES: Trace bilateral pleural effusions unchanged. HEART: Unremarkable. No cardiomegaly. No significant pericardial effusion. LYMPH NODES: No lymphadenopathy. BONES, CHEST WALL: Unremarkable. No fracture or destructive lesion OTHER FINDINGS: Gynecomastia. Incomplete visualization of cirrhotic liver and portosystemic shunt. IMPRESSION: Unremarkable CT pulmonary angiogram. No pulmonary embolus. Limitations of the current study both qualitative and quantitative assessment of opacification of the pulmonary arterial system precludes assessment at and below the segmental branch levels. Stable lower lobe infiltrates/atelectasis. Status post extubation, debris identified within the trachea. Concordant results (preliminary interpretation) provided by [facility]. Procedure Completed: 21:51. Preliminary Report: Interpreted and electronically signed: 22:37. Final Interpretation: 10:15. February 08, 2019. Assessment & Plan (1) Aspiration pneumonitis Status: Acute (2) Cirrhosis of liver Status: Acute Priority: High (3) Hepatocellular carcinoma Status: Acute - Assessment and Plan (Free Text) Assessment: A/P- 69 year old male with h/o ETOH abuse, liver cirrhosis, liver cancer undergoing chemo who was admitted originally with change in MS and was intubated and was in ICU for long time and was treaatd for pseudomonas and k.oxytoca in sputum cx with 11 days of meropnem was extubated and cliniclaly much betetr and was transferred to Acute reb and then yesterday he develops sob and was taken to ED and now is admitted to tele floor. aspiration pneumonitis is very likely since pt. had recently started to eat and had intermittent days of lethargy secondary to his cirhosis . currently he is AAO X 3 states his breathing sis better compared to yesterday. he is ruled out for PE as per CT report. afebrile no leukocytois minimal left shift. Plan- check sputum cx. advise in the meantime to place him back on meropenem since that targets bothe the previous pseudomonas and K.Oxytoca . advise 3 days of this antibiotic since he already had 11 days of it. monitor aspiration precautions. speech/swallow eval. All labs and imaging and chart notes reviewed. Thank you for this consultation. all above also d/w patient and he verbalizes full understanding of all above.
[2019-02-08] MEDS: Pantoprazole 40 mg Susp UD PO SCH (13:33)
[2019-02-08] MEDS: Albuterol-Ipratrop 3 mg / 0.5 (3 ml) UD INH PRN (13:57)
[2019-02-08] MEDS: Meropenem 1 GM in Sodium Chloride 0.9% 100 ML IVPB SCH (17:04)
[2019-02-09] MEDS: Sodium Chloride 0.9% 1,000 ML IV SCH (00:04)
[2019-02-09] MEDS: Meropenem 1 GM in Sodium Chloride 0.9% 100 ML IVPB SCH ×3 (00:05→16:55)
[2019-02-09 05:24] LABS: HEMOGLOBIN 8.7 g/dL (12.0-18.0); MEAN CELL VOLUME 112.6 fl (80.0-94.0); MEAN CORPUSCULAR HEMOGLOBIN 39.1 pg (27.0-31.0); MEAN CORPUSCULAR HGB CONC 34.7 g/dL (33.0-37.0); RBC 2.24 Mil/uL (4.40-5.90); RED CELL DISTRIBUTION WIDTH 14.4 % (11.5-14.5); WHITE BLOOD COUNT 6.9 K/uL (4.8-10.8)
[2019-02-09 05:43] LABS: ALB/GLOB RATIO 0.5 (1.0-2.1); ALT/SGPT 48 U/L (21-72); AST/SGOT 45 U/L (17-59); BLOOD UREA NITROGEN 27 mg/dl (9-20); CALCIUM 8.3 mg/dL (8.4-10.2); GFR NON-AFRICAN AMERICAN > 60
[2019-02-09] MEDS: Levothyroxine 50 MCG TAB PO SCH (06:24)
[2019-02-09] MEDS: Insulin Lispro (humaLOG) 100 Units/ml Inj SC SCH ×4 (06:30→21:26)
[2019-02-09] MEDS: Pantoprazole 40 mg Susp UD PO SCH (08:53)
--- NOTE | 2019-02-09 10:31 | CP.PCM.PN ---
Subjective - Date & Time of Evaluation Date of Evaluation: 02/09/19 Time of Evaluation: 10:31 - Subjective Subjective: alert and awake sob improved Objective - Vital Signs/Intake and Output Vital Signs (last 24 hours): Temp Pulse Resp BP Pulse Ox 98.6 F 67 18 118/75 100 02/09/19 07:40 02/09/19 07:40 02/09/19 07:40 02/09/19 08:52 02/09/19 07:40 - Medications Medications: Current Medications Acetaminophen (Tylenol 650mg/20.3ml Solution Ud) 650 mg PO Q6 PRN PRN Reason: Temperature Albuterol/Ipratropium (Duoneb 3 Mg/0.5 Mg (3 Ml) Ud) 3 ml INH RQ4 PRN PRN Reason: Shortness of Breath Last Admin: 02/08/19 13:57 Dose: 3 ml Benzonatate (Tessalon Perles) 100 mg PO Q8 PRN PRN Reason: Cough Carvedilol (Coreg) 6.25 mg PO Q12 [facility] Last Admin: 02/09/19 08:50 Dose: 6.25 mg Dextrose (Dextrose 50% Inj) 0 ml IV STAT PRN; Protocol PRN Reason: Hypoglycemia Protocol Dextrose (Glutose 15) 15 gm PO ONCE PRN PRN Reason: Hypoglycemia Dextrose (Glutose 15) 0 gm PO ONCE PRN; Protocol PRN Reason: Hypoglycemia Protocol Diphenhydramine HCl (Benadryl) 50 mg IVP Q6 PRN PRN Reason: Agitation Folic Acid (Folic Acid) 1 mg PO DAILY [facility] Last Admin: 02/09/19 08:52 Dose: 1 mg Furosemide (Lasix) 20 mg PO DAILY [facility] Last Admin: 02/09/19 08:52 Dose: 20 mg Haloperidol Lactate (Haldol) 5 mg IM Q6 PRN PRN Reason: Agitation Meropenem 1 gm/ Sodium (Chloride) 100 mls @ 100 mls/hr IVPB Q8 [facility]; Protocol Last Admin: 02/09/19 00:05 Dose: 100 mls/hr Insulin Human Lispro (Humalog) 0 units SC ACHS [facility]; Protocol Last Admin: 02/09/19 06:30 Dose: 2 units Lactulose (Enulose) 20 gm PO TID [facility] Last Admin: 02/09/19 08:51 Dose: 20 gm Levothyroxine Sodium (Synthroid) 50 mcg PO DAILY@0630 [facility] Last Admin: 02/09/19 06:24 Dose: 50 mcg Pantoprazole Sodium (Protonix Susp) 40 mg PO DAILY [facility] Last Admin: 02/09/19 08:53 Dose: 40 mg Prednisone (Prednisone Tab) 15 mg PO DAILY [facility] Stop: 02/14/19 23:59 Prednisone (Prednisone Tab) 10 mg PO DAILY [facility] Stop: 02/17/19 23:59 Prednisone (Prednisone Tab) 5 mg PO DAILY [facility] Stop: 02/21/19 23:59 Rifaximin (Xifaxan) 550 mg PO BID [facility]; Protocol Last Admin: 02/09/19 08:54 Dose: 550 mg Spironolactone (Aldactone) 50 mg PO DAILY [facility] Last Admin: 02/09/19 08:50 Dose: 50 mg Tamsulosin HCl (Flomax) 0.4 mg PO DAILY [facility] Last Admin: 02/09/19 08:51 Dose: 0.4 mg Thiamine HCl (Vitamin B1 Tab) 100 mg PO DAILY [facility] Last Admin: 02/09/19 08:53 Dose: 100 mg - Labs Labs: 02/09/19 04:41 02/09/19 04:41 PT 17.7 Seconds (9.8-13.1) H 02/07/19 23:00 INR 1.6 02/07/19 23:00 APTT 26.2 Seconds (25.6-37.1) 02/07/19 23:00 - Constitutional Appears: No Acute Distress - Head Exam Head Exam: ATRAUMATIC, NORMAL INSPECTION, NORMOCEPHALIC - Eye Exam Eye Exam: EOMI, Normal appearance, PERRL Pupil Exam: NORMAL ACCOMODATION, PERRL - ENT Exam ENT Exam: Mucous Membranes Moist, Normal Exam - Neck Exam Neck Exam: Full ROM, Normal Inspection. absent: Lymphadenopathy - Respiratory Exam Respiratory Exam: Clear to Ausculation Bilateral, Prolonged Expiratory Phase, Rales, NORMAL BREATHING PATTERN - Cardiovascular Exam Cardiovascular Exam: REGULAR RHYTHM, +S1, +S2. absent: Murmur - GI/Abdominal Exam GI & Abdominal Exam: Soft, Normal Bowel Sounds. absent: Tenderness - Rectal Exam Rectal Exam: NORMAL INSPECTION - Extremities Exam Extremities Exam: Full ROM, Normal Capillary Refill, Normal Inspection. absent: Joint Swelling, Pedal Edema - Back Exam Back Exam: NORMAL INSPECTION - Neurological Exam Neurological Exam: Alert, Awake, CN II-XII Intact, Normal Gait, Oriented x3 - Psychiatric Exam Psychiatric exam: Normal Affect, Normal Mood - Skin Skin Exam: Dry, Intact, Normal Color, Warm Assessment and Plan - Assessment and Plan (Free Text) Assessment: aspiration pneumonia chronic alcoholism liver cancer Plan: continue current rx
[2019-02-09] MEDS: Albuterol-Ipratrop 3 mg / 0.5 (3 ml) UD INH PRN (15:36)
[2019-02-09] MEDS ORDERED: Acetylcysteine 20% Inhal Soln (4ml) INH STA (15:49)
[2019-02-09] MEDS ORDERED: Promethazine DM 12.5 mg-30 mg/10 ml Syrup PO PRN (15:49)
[2019-02-09] MEDS ORDERED: Albuterol-Ipratrop 3 mg / 0.5 (3 ml) UD INH STA (16:18)
--- NOTE | 2019-02-09 16:24 | PCM.RRT ---
<Estevan Chandler - Last Filed: 02/09/19 17:04> [employer]PER[employer]OR Nurse Assessment - Ventilator Settings Ventilator Respiratory Rate Settin Ventilator Tidal Volume Settin I.Reason for [employer]SE SUPERVISOR - A) Acute Change in Patient: Subjective: H[employer] SUPERVISOR time: 3:54PM [employer]PER[employer] arrival time: 3:56PM [employer]PER[employer] Location: [facility] S: HOSPITALITY HOUSE SUPERVISOR called by RN after patient started coughing and was suddenly found agitated and with diffculty breathing. As per MR the patient is a 69 years old male with PMHx liver cirrhosis and liver cancer. He was recently admitted in ICU requiring intubation for approxiamtely 2 weeks for heaptic encephalopathy and acute renal failure. Patient went to rehab due to debility for PT-OT and speech therapy treatment, but had to be readmitted to tele due to c/o of SOB and wheezing with diagnosis of aspiration PNA. Patient at this time of encounter during the [employer]SE SUPERVISOR is unable to talk due to respiratory distress. O: GEN: Obvious respiratory distress VS [employer]SE SUPERVISOR Vital signs: CV: S1 S2,RRR RESP: Diffuse wheezing, bilateral base rales, mild stridor. EXT: Ankle edema +1 NEURO: Agitated. unable to assess. A/P and [employer]SE SUPERVISOR interventions: 69 years old male with PMHx liver cirrhosis and liver cancer, with h/o recent ad mission to ICU for acute hepatic encephalopathy and renal F requiring prolonged intubation. Readmitted to tele on 02/07/19 due aspiration PNA, now with acute exacerbation of SOB. IMpression: Respiratory failure vs Congestive HF secondary to liver cirrhosis. -Lasix 40 IV given -CBC, BMP, pro-BNP, ammonia level, latic acid stat -ABG Stat: Shows pH 7.21, w/ hypercapnia -NOn-reabreather -Transfer to ICU for possible stat ET intubation [employer] SUPERVISOR discussed with attending Dr Sandhu <Verito Sandhu - Last Filed: 02/09/19 17:21> [employer]PER[employer]OR Nurse Assessment - Vital Signs Vital Signs: Rapid Response Vital Sign Blood Pressure 168/114 Pulse Rate 92 Respiratory Rate 24 Oxygen Saturation 100 - Vital Signs at end of [employer] SUPERVISOR Vital Signs at end of [employer] SUPERVISOR: Rapid Response End Vital Sign Blood Pressure 187/89 Pulse Rate 111 Respiratory Rate 31 O2 Sat by Pulse Oximetry 100 Attending/Attestation - Attestation I have personally seen and examined this patient.: Yes I have fully participated in the care of the patient.: Yes I have reviewed all pertinent clinical information, including history, physical exam and plan: Yes Notes (Text): Acute Hypoxic and Hypercapneic Respiratory Failure - Pt placed on 100% NRBM - IV Lasix 40 mg - Stat Duoneb tx - ABG -CXR - CBC, BMP, ProBNP, Lactic acid, Ammonia level - ICU consult - discussed case with Dr Peters - accepted pt to ICU - start Bipap - discussed Code Status with and poss need for Intubation , is surrogate decision maker - she would like to speak with daughter first
[2019-02-09 16:25] LABS: ABG ALLEN TEST YES; ARTERIAL BLOOD GAS HCO3 26.1 mmol/L (21-28); ARTERIAL BLOOD GAS O2 SAT 99.3 % (95-98); ARTERIAL BLOOD GAS PCO2 77 mm/Hg (35-45); ARTERIAL BLOOD GAS PH 7.21 (7.35-7.45); ARTERIAL BLOOD GAS PO2 110 mm/Hg (80-100); ARTERIAL BLOOD GAS TCO2 33.2 mmol/L (22-28)
[2019-02-09 16:53] LABS: BLOOD UREA NITROGEN 26 mg/dl (9-20); CALCIUM 8.4 mg/dL (8.4-10.2); GFR NON-AFRICAN AMERICAN > 60
[2019-02-09 16:54] LABS: BASO % 0.3 % (0.0-2.0); EOS % 0.2 % (0.0-4.0); HEMOGLOBIN 10.5 g/dL (12.0-18.0); LYMPH # 1.6 K/uL (1.0-4.3); MEAN CORPUSCULAR HEMOGLOBIN 38.5 pg (27.0-31.0); MEAN CORPUSCULAR HGB CONC 34.1 g/dL (33.0-37.0); MEAN PLATELET VOLUME 9.9 fl (7.2-11.7); MONO % 9.8 % (0.0-10.0); NEUT # 7.8 K/uL (1.8-7.0); NEUT % 74.7 % (50.0-75.0); NRBC % 0.1 % (0.0-0.0); RBC 2.72 Mil/uL (4.40-5.90); RED CELL DISTRIBUTION WIDTH 14.5 % (11.5-14.5)
[2019-02-09 17:01] LABS: B-TYPE NATRIURETIC PEPTIDE 295 pg/ml (0-900)
[2019-02-09 17:23] LABS: WHITE BLOOD COUNT 10.5 K/uL (4.8-10.8)
[2019-02-09 19:03] LABS: ABG ALLEN TEST YES; ARTERIAL BLOOD GAS HCO3 29.2 mmol/L (21-28); ARTERIAL BLOOD GAS HEMOGLOBIN 9.9 g/dL (11.7-17.4); ARTERIAL BLOOD GAS O2 CAPACITY 13.9 mL/dL (16-24); ARTERIAL BLOOD GAS O2 CONTENT 13.9 ML/dL (15-23); ARTERIAL BLOOD GAS O2 SAT 100.2 % (95-98); ARTERIAL BLOOD GAS PCO2 36 mm/Hg (35-45); ARTERIAL BLOOD GAS PH 7.51 (7.35-7.45); ARTERIAL BLOOD GAS PO2 165 mm/Hg (80-100); ARTERIAL BLOOD GAS TCO2 29.8 mmol/L (22-28)
[2019-02-09] MEDS: Acetylcysteine 20% Inhal Soln (4ml) INH SCH (19:32)
[2019-02-09] MEDS ORDERED: Iohexol 300 100 ML IJ ONE (19:54)
[2019-02-09] MEDS ORDERED: Sodium Chloride 0.9% 50 ML IV ONE (19:54)
--- NOTE | 2019-02-09 23:46 | CP.PCM.PN ---
Subjective - Date & Time of Evaluation Date of Evaluation: 02/09/19 Time of Evaluation: 17:00 - Subjective Subjective: Seen in ICU, on bipap family at bedside. Objective - Vital Signs/Intake and Output Vital Signs (last 24 hours): Temp Pulse Resp BP Pulse Ox 97.8 F 66 13 96/52 L 100 02/09/19 20:15 02/09/19 23:44 02/09/19 22:00 02/09/19 22:00 02/09/19 22:00 Intake and Output: 02/09/19 02/10/19 18:59 06:59 Intake Total 100 20 Output Total 800 520 Balance -700 -500 - Medications Medications: Current Medications Acetaminophen (Tylenol 650mg/20.3ml Solution Ud) 650 mg PO Q6 PRN PRN Reason: Temperature Acetylcysteine (Acetylcysteine 20%) 2 ml INH RBID [facility] Last Admin: 02/09/19 19:32 Dose: Not Given Albuterol/Ipratropium (Duoneb 3 Mg/0.5 Mg (3 Ml) Ud) 3 ml INH RQ4 PRN PRN Reason: Shortness of Breath Last Admin: 02/09/19 15:36 Dose: 3 ml Benzonatate (Tessalon Perles) 100 mg PO Q8 PRN PRN Reason: Cough Carvedilol (Coreg) 6.25 mg PO Q12 [facility] Last Admin: 02/09/19 21:25 Dose: 6.25 mg Dextrose (Dextrose 50% Inj) 0 ml IV STAT PRN; Protocol PRN Reason: Hypoglycemia Protocol Dextrose (Glutose 15) 15 gm PO ONCE PRN PRN Reason: Hypoglycemia Dextrose (Glutose 15) 0 gm PO ONCE PRN; Protocol PRN Reason: Hypoglycemia Protocol Diphenhydramine HCl (Benadryl) 50 mg IVP Q6 PRN PRN Reason: Agitation Folic Acid (Folic Acid) 1 mg PO DAILY [facility] Last Admin: 02/09/19 08:52 Dose: 1 mg Furosemide (Lasix) 20 mg PO DAILY [facility] Last Admin: 02/09/19 08:52 Dose: 20 mg Haloperidol Lactate (Haldol) 5 mg IM Q6 PRN PRN Reason: Agitation Meropenem 1 gm/ Sodium (Chloride) 100 mls @ 100 mls/hr IVPB Q8 [facility]; Protocol Last Admin: 02/09/19 16:55 Dose: 100 mls/hr Insulin Human Lispro (Humalog) 0 units SC ACHS [facility]; Protocol Last Admin: 02/09/19 21:26 Dose: 3 units Lactulose (Enulose) 20 gm PO TID [facility] Last Admin: 02/09/19 17:21 Dose: Not Given Levothyroxine Sodium (Synthroid) 50 mcg PO DAILY@0630 [facility] Last Admin: 02/09/19 06:24 Dose: 50 mcg Pantoprazole Sodium (Protonix Susp) 40 mg PO DAILY [facility] Last Admin: 02/09/19 08:53 Dose: 40 mg Prednisone (Prednisone Tab) 15 mg PO DAILY [facility] Stop: 02/14/19 23:59 Prednisone (Prednisone Tab) 10 mg PO DAILY [facility] Stop: 02/17/19 23:59 Prednisone (Prednisone Tab) 5 mg PO DAILY [facility] Stop: 02/21/19 23:59 Promethazine HCl/Dextromethorphan (Phenergan Dm Syrup) 10 ml PO Q6 PRN PRN Reason: Cough Rifaximin (Xifaxan) 550 mg PO BID [facility]; Protocol Last Admin: 02/09/19 16:56 Dose: 550 mg Spironolactone (Aldactone) 50 mg PO DAILY [facility] Last Admin: 02/09/19 08:50 Dose: 50 mg Tamsulosin HCl (Flomax) 0.4 mg PO DAILY [facility] Last Admin: 02/09/19 08:51 Dose: 0.4 mg Thiamine HCl (Vitamin B1 Tab) 100 mg PO DAILY [facility] Last Admin: 02/09/19 08:53 Dose: 100 mg - Labs Labs: 02/09/19 16:34 02/09/19 16:34 PT 17.7 Seconds (9.8-13.1) H 02/07/19 23:00 INR 1.6 02/07/19 23:00 APTT 26.2 Seconds (25.6-37.1) 02/07/19 23:00 - Head Exam Head Exam: ATRAUMATIC - Eye Exam Eye Exam: Normal appearance - ENT Exam ENT Exam: Mucous Membranes Dry - Respiratory Exam Respiratory Exam: Decreased Breath Sounds - Cardiovascular Exam Cardiovascular Exam: +S1, +S2 - GI/Abdominal Exam GI & Abdominal Exam: Normal Bowel Sounds Assessment and Plan (1) Anemia Assessment & Plan: anemia w/u sent Status: Acute (2) Thrombocytopenia Assessment & Plan: mild liver disease Status: Acute (3) Coagulopathy Assessment & Plan: liver disease Status: Acute (4) Hepatocellular carcinoma Assessment & Plan: outpatient treatment Status: Acute
[2019-02-10] MEDS: Meropenem 1 GM in Sodium Chloride 0.9% 100 ML IVPB SCH ×3 (01:00→16:12)
[2019-02-10 05:18] LABS: HEMOGLOBIN 8.9 g/dL (12.0-18.0); MEAN CORPUSCULAR HEMOGLOBIN 38.7 pg (27.0-31.0); MEAN CORPUSCULAR HGB CONC 34.5 g/dL (33.0-37.0); RBC 2.3 Mil/uL (4.40-5.90); RED CELL DISTRIBUTION WIDTH 14.2 % (11.5-14.5); WHITE BLOOD COUNT 6.6 K/uL (4.8-10.8)
[2019-02-10 05:21] LABS: MEAN CELL VOLUME 112.3 fl (80.0-94.0)
[2019-02-10 05:23] LABS: BLOOD UREA NITROGEN 24 mg/dl (9-20); CALCIUM 8.1 mg/dL (8.4-10.2); GFR NON-AFRICAN AMERICAN > 60
[2019-02-10] MEDS: Levothyroxine 50 MCG TAB PO SCH (06:50)
[2019-02-10] MEDS: Albuterol-Ipratrop 3 mg / 0.5 (3 ml) UD INH PRN ×2 (08:08→19:22)
[2019-02-10] MEDS: Acetylcysteine 20% Inhal Soln (4ml) INH SCH ×2 (08:08→19:22)
[2019-02-10] MEDS: Insulin Lispro (humaLOG) 100 Units/ml Inj SC SCH ×4 (08:25→22:55)
[2019-02-10] MEDS: Pantoprazole 40 mg Susp UD PO SCH (08:28)
--- NOTE | 2019-02-10 10:34 | CP.PCM.PN ---
Subjective - Date & Time of Evaluation Date of Evaluation: 02/10/19 Time of Evaluation: 10:36 - Subjective Subjective: TRANSFERRED TO ICU POST [employer]APE YESTERDAY AWAKE AND ALERT AND COMFORTABLE TODAY VITALS STABLE NO CHEST PAINS/SOB Objective - Vital Signs/Intake and Output Vital Signs (last 24 hours): Temp Pulse Resp BP Pulse Ox 97.9 F 69 14 102/50 L 98 02/10/19 08:00 02/10/19 10:00 02/10/19 10:00 02/10/19 10:00 02/10/19 10:00 Intake and Output: 02/10/19 02/10/19 06:59 18:59 Intake Total 145 350 Output Total 1650 400 Balance -1505 -50 - Medications Medications: Current Medications Acetaminophen (Tylenol 650mg/20.3ml Solution Ud) 650 mg PO Q6 PRN PRN Reason: Temperature Acetylcysteine (Acetylcysteine 20%) 2 ml INH RBID [facility] Last Admin: 02/10/19 08:08 Dose: 2 ml Albuterol/Ipratropium (Duoneb 3 Mg/0.5 Mg (3 Ml) Ud) 3 ml INH RQ4 PRN PRN Reason: Shortness of Breath Last Admin: 02/10/19 08:08 Dose: 3 ml Benzonatate (Tessalon Perles) 100 mg PO Q8 PRN PRN Reason: Cough Carvedilol (Coreg) 6.25 mg PO Q12 [facility] Last Admin: 02/10/19 08:21 Dose: 6.25 mg Dextrose (Dextrose 50% Inj) 0 ml IV STAT PRN; Protocol PRN Reason: Hypoglycemia Protocol Dextrose (Glutose 15) 15 gm PO ONCE PRN PRN Reason: Hypoglycemia Dextrose (Glutose 15) 0 gm PO ONCE PRN; Protocol PRN Reason: Hypoglycemia Protocol Diphenhydramine HCl (Benadryl) 50 mg IVP Q6 PRN PRN Reason: Agitation Folic Acid (Folic Acid) 1 mg PO DAILY [facility] Last Admin: 02/10/19 08:23 Dose: 1 mg Furosemide (Lasix) 20 mg PO DAILY [facility] Last Admin: 02/10/19 08:23 Dose: 20 mg Haloperidol Lactate (Haldol) 5 mg IM Q6 PRN PRN Reason: Agitation Meropenem 1 gm/ Sodium (Chloride) 100 mls @ 100 mls/hr IVPB Q8 [facility]; Protocol Last Admin: 02/10/19 08:26 Dose: 100 mls/hr Insulin Human Lispro (Humalog) 0 units SC ACHS [facility]; Protocol Last Admin: 02/10/19 08:25 Dose: 1 units Lactulose (Enulose) 20 gm PO TID [facility] Last Admin: 02/10/19 08:24 Dose: 20 gm Levothyroxine Sodium (Synthroid) 50 mcg PO DAILY@0630 [facility] Last Admin: 02/10/19 06:50 Dose: 50 mcg Pantoprazole Sodium (Protonix Susp) 40 mg PO DAILY [facility] Last Admin: 02/10/19 08:28 Dose: 40 mg Prednisone (Prednisone Tab) 15 mg PO DAILY [facility] Stop: 02/14/19 23:59 Last Admin: 02/10/19 08:27 Dose: 15 mg Prednisone (Prednisone Tab) 10 mg PO DAILY [facility] Stop: 02/17/19 23:59 Prednisone (Prednisone Tab) 5 mg PO DAILY [facility] Stop: 02/21/19 23:59 Promethazine HCl/Dextromethorphan (Phenergan Dm Syrup) 10 ml PO Q6 PRN PRN Reason: Cough Rifaximin (Xifaxan) 550 mg PO BID [facility]; Protocol Last Admin: 02/10/19 08:22 Dose: 550 mg Spironolactone (Aldactone) 50 mg PO DAILY [facility] Last Admin: 02/10/19 08:23 Dose: 50 mg Tamsulosin HCl (Flomax) 0.4 mg PO DAILY [facility] Last Admin: 02/10/19 08:24 Dose: 0.4 mg Thiamine HCl (Vitamin B1 Tab) 100 mg PO DAILY [facility] Last Admin: 02/10/19 08:21 Dose: 100 mg - Labs Labs: 02/10/19 04:20 02/10/19 04:20 PT 17.7 Seconds (9.8-13.1) H 02/07/19 23:00 INR 1.6 02/07/19 23:00 APTT 26.2 Seconds (25.6-37.1) 02/07/19 23:00 - Constitutional Appears: No Acute Distress, Chronically Ill - Head Exam Head Exam: ATRAUMATIC, NORMAL INSPECTION, NORMOCEPHALIC - Eye Exam Eye Exam: EOMI, Normal appearance, PERRL Pupil Exam: NORMAL ACCOMODATION, PERRL - ENT Exam ENT Exam: Mucous Membranes Moist, Normal Exam - Neck Exam Neck Exam: Full ROM, Normal Inspection. absent: Lymphadenopathy - Respiratory Exam Respiratory Exam: Clear to Ausculation Bilateral, Prolonged Expiratory Phase, NORMAL BREATHING PATTERN - Cardiovascular Exam Cardiovascular Exam: REGULAR RHYTHM, +S1, +S2. absent: Murmur - GI/Abdominal Exam GI & Abdominal Exam: Soft, Normal Bowel Sounds. absent: Tenderness - Rectal Exam Rectal Exam: NORMAL INSPECTION - Exam Exam: Circumcision, NORMAL INSPECTION External exam: NORMAL EXTERNAL EXAM Speculum exam: NORMAL SPECULUM EXAM Bimanual exam: NORMAL BIMANUAL EXAM - Extremities Exam Extremities Exam: Full ROM, Normal Capillary Refill, Normal Inspection. absent: Joint Swelling, Pedal Edema - Back Exam Back Exam: NORMAL INSPECTION - Neurological Exam Neurological Exam: Alert, Awake, CN II-XII Intact, Oriented x3 - Psychiatric Exam Psychiatric exam: Normal Affect, Normal Mood - Skin Skin Exam: Dry, Intact, Normal Color, Warm Assessment and Plan - Assessment and Plan (Free Text) Assessment: S/P DRAFTER LANDSCAPE ASPIRATION PNEUMONIA Plan: CONTINUE CURRENT RX
--- NOTE | 2019-02-10 13:06 | CT ---
Date of service: 02/09/2019 PROCEDURE: CT NECK WITH CONTRAST HISTORY: Acute respiratory failure; stridor. COMPARISON: None available. TECHNIQUE: CT of the neck with intravenous contrast. Coronal and sagittal reformats generated. Intravenous contrast dose: 90 cc Omnipaque 300 contrast material. Radiation dose: Total exam DLP = 342.44 mGy-cm. This CT exam was performed using one or more of the following dose reduction techniques: Automated exposure control, adjustment of the mA and/or kV according to patient size, and/or use of iterative reconstruction technique. FINDINGS: NASOPHARYNX: Unremarkable. SUPRAHYOID NECK: Unremarkable oropharynx, oral cavity, parapharyngeal space and retropharyngeal space. INFRAHYOID NECK: Unremarkable larynx, hypopharynx, and supraglottic space. There is slight medial position of the left true vocal cord however the arytenoid cartilage exhibits relatively normal position. Clinical correlation recommended. Direct visualization may be prudent. There is a small amount of air seen within the soft tissues immediately abutting the anterior trachea at the level of the thyroid cartilage as well as along the sub mucosal surfaces posteriorly. MASS: None. GLANDS: Parotid and submandibular glands unremarkable. Normal size thyroid gland, without nodule. LYMPH NODES: No significant cervical lymphadenopathy. CERVICAL SPINE: Mild multilevel degenerative spondylosis of the cervical spine. VASCULAR STRUCTURES: Tiny calcified plaque seen along the posterior aspect of the left carotid bifurcation with no significant stenosis. OTHER FINDINGS: There is a moderate size right-sided effusion and mild atelectasis seen in the right upper lobe. There also appears to be trace left-sided effusion and some minor left basilar atelectasis. In situ left-sided PICC line with tip in the SVC. IMPRESSION: There is a tiny amount of air seen within the soft tissues just anterior to the trachea at the level of the thyroid gland as well as on along the submucosal surfaces posteriorly. In addition, there is a thin linear density which is located in the upper trachea at the level of both clavicular heads that could represent adherent mucus or a small tracheal web. Moderate-sized right-sided effusion and mild atelectasis. Suspect trace left-sided effusion and minimal left atelectasis. Note this report was placed in PA review folder for follow up
--- NOTE | 2019-02-10 14:25 | RAD ---
Date of service: 02/09/2019 HISTORY: DYSPNEA COMPARISON: Comparison chest 02/07/2019 TECHNIQUE: 1 view obtained. FINDINGS: LUNGS: Poor inspiration with low lung volumes common crowded bronchovascular markings and mild bibasilar atelectasis PLEURA: No significant pleural effusion identified, no pneumothorax apparent. CARDIOVASCULAR: No aortic atherosclerotic calcification present. Cardiomegaly. No pulmonary vascular congestion. OSSEOUS STRUCTURES: No significant abnormalities. VISUALIZED UPPER ABDOMEN: Normal. OTHER FINDINGS: None. IMPRESSION: Poor inspiration with low lung volumes common crowded bronchovascular markings and mild bibasilar atelectasis
[2019-02-10 16:55] LABS: ABG ALLEN TEST YES; ARTERIAL BLOOD GAS PCO2 40 mm/Hg (35-45); ARTERIAL BLOOD GAS PH 7.51 (7.35-7.45)
[2019-02-10 16:56] LABS: ARTERIAL BLOOD GAS HCO3 31.4 mmol/L (21-28); ARTERIAL BLOOD GAS HEMOGLOBIN 9.2 g/dL (11.7-17.4); ARTERIAL BLOOD GAS O2 CAPACITY 12.8 mL/dL (16-24); ARTERIAL BLOOD GAS O2 CONTENT 12.8 ML/dL (15-23); ARTERIAL BLOOD GAS O2 SAT 100.1 % (95-98); ARTERIAL BLOOD GAS PO2 96 mm/Hg (80-100); ARTERIAL BLOOD GAS TCO2 33.1 mmol/L (22-28)
--- NOTE | 2019-02-10 21:16 | CP.PCM.PN ---
Subjective - Date & Time of Evaluation Date of Evaluation: 02/10/19 Time of Evaluation: 19:00 - Subjective Subjective: Appears comfortable, family at bedside. Objective - Vital Signs/Intake and Output Vital Signs (last 24 hours): Temp Pulse Resp BP Pulse Ox 98.6 F 82 20 111/62 99 02/10/19 16:00 02/10/19 20:25 02/10/19 18:00 02/10/19 20:25 02/10/19 18:00 Intake and Output: 02/10/19 02/11/19 18:59 06:59 Intake Total 980 Output Total 1680 Balance -700 - Medications Medications: Current Medications Acetaminophen (Tylenol 650mg/20.3ml Solution Ud) 650 mg PO Q6 PRN PRN Reason: Temperature Acetylcysteine (Acetylcysteine 20%) 2 ml INH RBID [facility] Last Admin: 02/10/19 19:22 Dose: 2 ml Albuterol/Ipratropium (Duoneb 3 Mg/0.5 Mg (3 Ml) Ud) 3 ml INH RQ4 PRN PRN Reason: Shortness of Breath Last Admin: 02/10/19 19:22 Dose: 3 ml Benzonatate (Tessalon Perles) 100 mg PO Q8 PRN PRN Reason: Cough Carvedilol (Coreg) 6.25 mg PO Q12 [facility] Last Admin: 02/10/19 20:25 Dose: 6.25 mg Dextrose (Dextrose 50% Inj) 0 ml IV STAT PRN; Protocol PRN Reason: Hypoglycemia Protocol Dextrose (Glutose 15) 15 gm PO ONCE PRN PRN Reason: Hypoglycemia Dextrose (Glutose 15) 0 gm PO ONCE PRN; Protocol PRN Reason: Hypoglycemia Protocol Diphenhydramine HCl (Benadryl) 50 mg IVP Q6 PRN PRN Reason: Agitation Folic Acid (Folic Acid) 1 mg PO DAILY [facility] Last Admin: 02/10/19 08:23 Dose: 1 mg Furosemide (Lasix) 20 mg PO DAILY [facility] Last Admin: 02/10/19 08:23 Dose: 20 mg Haloperidol Lactate (Haldol) 5 mg IM Q6 PRN PRN Reason: Agitation Meropenem 1 gm/ Sodium (Chloride) 100 mls @ 100 mls/hr IVPB Q8 [facility]; Protocol Last Admin: 02/10/19 16:12 Dose: 100 mls/hr Insulin Human Lispro (Humalog) 0 units SC ACHS [facility]; Protocol Last Admin: 02/10/19 16:24 Dose: 4 units Lactulose (Enulose) 20 gm PO TID [facility] Last Admin: 02/10/19 16:11 Dose: 20 gm Levothyroxine Sodium (Synthroid) 50 mcg PO DAILY@0630 [facility] Last Admin: 02/10/19 06:50 Dose: 50 mcg Pantoprazole Sodium (Protonix Susp) 40 mg PO DAILY [facility] Last Admin: 02/10/19 08:28 Dose: 40 mg Prednisone (Prednisone Tab) 15 mg PO DAILY [facility] Stop: 02/14/19 23:59 Last Admin: 02/10/19 08:27 Dose: 15 mg Prednisone (Prednisone Tab) 10 mg PO DAILY [facility] Stop: 02/17/19 23:59 Prednisone (Prednisone Tab) 5 mg PO DAILY [facility] Stop: 02/21/19 23:59 Promethazine HCl/Dextromethorphan (Phenergan Dm Syrup) 10 ml PO Q6 PRN PRN Reason: Cough Rifaximin (Xifaxan) 550 mg PO BID [facility]; Protocol Last Admin: 02/10/19 16:13 Dose: 550 mg Spironolactone (Aldactone) 50 mg PO DAILY [facility] Last Admin: 02/10/19 08:23 Dose: 50 mg Tamsulosin HCl (Flomax) 0.4 mg PO DAILY [facility] Last Admin: 02/10/19 08:24 Dose: 0.4 mg Thiamine HCl (Vitamin B1 Tab) 100 mg PO DAILY [facility] Last Admin: 02/10/19 08:21 Dose: 100 mg - Labs Labs: 02/10/19 04:20 02/10/19 04:20 PT 17.7 Seconds (9.8-13.1) H 02/07/19 23:00 INR 1.6 02/07/19 23:00 APTT 26.2 Seconds (25.6-37.1) 02/07/19 23:00 - Head Exam Head Exam: ATRAUMATIC - Eye Exam Eye Exam: Normal appearance - ENT Exam ENT Exam: Mucous Membranes Dry - Respiratory Exam Respiratory Exam: NORMAL BREATHING PATTERN - Cardiovascular Exam Cardiovascular Exam: +S1, +S2 - GI/Abdominal Exam GI & Abdominal Exam: Normal Bowel Sounds Assessment and Plan (1) Anemia Assessment & Plan: anemia of chronic disease Status: Acute (2) Thrombocytopenia Assessment & Plan: secondary to liver disease and splenic sequestration Status: Acute (3) Coagulopathy Assessment & Plan: liver disease Status: Acute (4) Hepatocellular carcinoma Assessment & Plan: outpatient treatment Status: Acute
[2019-02-11] MEDS: Meropenem 1 GM in Sodium Chloride 0.9% 100 ML IVPB SCH ×3 (01:43→17:24)
--- NOTE | 2019-02-11 04:41 | CP.PCM.PN ---
Subjective - Date & Time of Evaluation Date of Evaluation: 02/08/19 Objective - Vital Signs/Intake and Output Vital Signs (last 24 hours): Temp Pulse Resp BP Pulse Ox 98.4 F 71 15 104/53 L 99 02/11/19 00:00 02/11/19 02:00 02/11/19 02:00 02/11/19 02:00 02/11/19 02:00 Intake and Output: 02/10/19 02/11/19 18:59 06:59 Intake Total 980 150 Output Total 1680 700 Balance -700 -550 - Medications Medications: Current Medications Acetaminophen (Tylenol 650mg/20.3ml Solution Ud) 650 mg PO Q6 PRN PRN Reason: Temperature Acetylcysteine (Acetylcysteine 20%) 2 ml INH RBID JOANNA Last Admin: 02/10/19 19:22 Dose: 2 ml Albuterol/Ipratropium (Duoneb 3 Mg/0.5 Mg (3 Ml) Ud) 3 ml INH RQ4 PRN PRN Reason: Shortness of Breath Last Admin: 02/10/19 19:22 Dose: 3 ml Benzonatate (Tessalon Perles) 100 mg PO Q8 PRN PRN Reason: Cough Carvedilol (Coreg) 6.25 mg PO Q12 [facility]ANNA Last Admin: 02/10/19 20:25 Dose: 6.25 mg Dextrose (Dextrose 50% Inj) 0 ml IV STAT PRN; Protocol PRN Reason: Hypoglycemia Protocol Dextrose (Glutose 15) 15 gm PO ONCE PRN PRN Reason: Hypoglycemia Dextrose (Glutose 15) 0 gm PO ONCE PRN; Protocol PRN Reason: Hypoglycemia Protocol Diphenhydramine HCl (Benadryl) 50 mg IVP Q6 PRN PRN Reason: Agitation Folic Acid (Folic Acid) 1 mg PO DAILY [facility] Last Admin: 02/10/19 08:23 Dose: 1 mg Furosemide (Lasix) 20 mg PO DAILY [facility] Last Admin: 02/10/19 08:23 Dose: 20 mg Haloperidol Lactate (Haldol) 5 mg IM Q6 PRN PRN Reason: Agitation Meropenem 1 gm/ Sodium (Chloride) 100 mls @ 100 mls/hr IVPB Q8 [facility]; Protocol Last Admin: 02/11/19 01:43 Dose: 100 mls/hr Insulin Human Lispro (Humalog) 0 units SC ACHS [facility]; Protocol Last Admin: 02/10/19 22:55 Dose: 4 units Lactulose (Enulose) 20 gm PO TID [facility] Last Admin: 02/10/19 16:11 Dose: 20 gm Levothyroxine Sodium (Synthroid) 50 mcg PO DAILY@0630 [facility] Last Admin: 02/10/19 06:50 Dose: 50 mcg Pantoprazole Sodium (Protonix Susp) 40 mg PO DAILY [facility] Last Admin: 02/10/19 08:28 Dose: 40 mg Prednisone (Prednisone Tab) 15 mg PO DAILY [facility] Stop: 02/14/19 23:59 Last Admin: 02/10/19 08:27 Dose: 15 mg Prednisone (Prednisone Tab) 10 mg PO DAILY [facility] Stop: 02/17/19 23:59 Prednisone (Prednisone Tab) 5 mg PO DAILY [facility] Stop: 02/21/19 23:59 Promethazine HCl/Dextromethorphan (Phenergan Dm Syrup) 10 ml PO Q6 PRN PRN Reason: Cough Rifaximin (Xifaxan) 550 mg PO BID [facility]; Protocol Last Admin: 02/10/19 16:13 Dose: 550 mg Spironolactone (Aldactone) 50 mg PO DAILY [facility] Last Admin: 02/10/19 08:23 Dose: 50 mg Tamsulosin HCl (Flomax) 0.4 mg PO DAILY [facility] Last Admin: 02/10/19 08:24 Dose: 0.4 mg Thiamine HCl (Vitamin B1 Tab) 100 mg PO DAILY [facility] Last Admin: 02/10/19 08:21 Dose: 100 mg - Labs Labs: 02/10/19 04:20 02/10/19 04:20 PT 17.7 Seconds (9.8-13.1) H 02/07/19 23:00 INR 1.6 02/07/19 23:00 APTT 26.2 Seconds (25.6-37.1) 02/07/19 23:00
--- NOTE | 2019-02-11 04:41 | CP.PCM.HP ---
History of Present Illness - History of Present Illness History of Present Illness: CC: Transferred from Acute Rehab for Acute Respiratory Distress History of Present Illness A 69 years old male patient with history of alcoholic cirrhosis and liver cancer was admitted to ICU for hepatic encephalopathy with ammonia level of 360 and acute renal failure adding to metabolic encephalopathy with prolonged intubation. Patient extubated currently weak and having difficulty swallowing. Patient admitted to acute rehab for PT OT speech therapy and speech for swallow training; however, due to complaints of wheezing and SOB. Pt sent to ED for further evaluation and management. Present on Admission - Present on Admission Any Indicators Present on Admission: No Review of Systems - Review of Systems All systems: reviewed and no additional remarkable complaints except Review of Systems: as per HPI Past Patient History - Infectious Disease Hx of Infectious Diseases: None - Past Medical History & Family History Past Medical History?: Yes Past Family History: Reviewed and not pertinent - Past Social History Smoking Status: Never Smoked Alcohol: > 2 Drinks/Day Drugs: Denies - CARDIAC Hx Cardiac Disorders: Yes Hx Hypercholesterolemia: Yes Hx Hypertension: Yes Hx Pacemaker: No - PULMONARY Hx Respiratory Disorders: No Other/Comment: h/o acute respiratory failure, bacterial pneumonia. - NEUROLOGICAL Hx Neurological Disorder: No - HEENT Hx HEENT Problems: Yes Hx Cataracts: Yes - RENAL Hx Chronic Kidney Disease: Yes ( denies hx) Hx Renal Failure: Yes - ENDOCRINE/METABOLIC Hx Endocrine Disorders: Yes Hx Diabetes Mellitus Type 2: Yes - HEMATOLOGICAL/ONCOLOGICAL Hx Blood Disorders: Yes Hx AIDS: No Hx Cancer: Yes Hx Human Immunodeficiency Virus (HIV): No - INTEGUMENTARY Hx Dermatological Problems: No - MUSCULOSKELETAL/RHEUMATOLOGICAL Hx Musculoskeletal Disorders: No Hx Falls: No - GASTROINTESTINAL Hx Gastrointestinal Disorders: Yes Hx Gastritis: Yes - GENITOURINARY/GYNECOLOGICAL Hx Genitourinary Disorders: Yes Hx Prostate Problems: Yes - PSYCHIATRIC Hx Psychophysiologic Disorder: No Hx Substance Use: No - SURGICAL HISTORY Hx Surgeries: No Hx Mastectomy: No - ANESTHESIA Hx Anesthesia: Yes Hx Anesthesia Reactions: Yes (per "coma") Hx Malignant Hyperthermia: No Meds Allergies/Adverse Reactions: Allergies Allergy/AdvReac Type Severity Reaction Status Date / Time No Known Allergies Allergy Verified 02/01/19 20:20 Physical Exam - Constitutional Appears: In Acute Distress, Chronically Ill - Head Exam Head Exam: ATRAUMATIC, NORMAL INSPECTION, NORMOCEPHALIC - Eye Exam Eye Exam: EOMI, Normal appearance, PERRL Pupil Exam: NORMAL ACCOMODATION, PERRL - ENT Exam ENT Exam: Mucous Membranes Moist, Normal Exam - Neck Exam Neck exam: Positive for: Normal Inspection - Respiratory Exam Respiratory Exam: Accessory Muscle Use, Decreased Breath Sounds, Wheezes, Stridor - Cardiovascular Exam Cardiovascular Exam: Tachycardia, +S1, +S2 - GI/Abdominal Exam GI & Abdominal Exam: Normal Bowel Sounds, Soft. absent: Tenderness - Extremities Exam Extremities exam: Positive for: full ROM, normal capillary refill, normal inspection - Back Exam Back exam: NORMAL INSPECTION - Neurological Exam Neurological exam: Abnormal Gait, CN II-XII Intact, Normal Gait, Oriented x3, Reflexes Normal - Psychiatric Exam Psychiatric exam: Normal Affect, Normal Mood - Skin Skin Exam: Dry, Intact, Normal Color, Warm Results - Vital Signs Recent Vital Signs: Last Vital Signs Temp 98.4 F 02/11/19 00:00 Pulse 71 02/11/19 02:00 Resp 15 02/11/19 02:00 BP 104/53 L 02/11/19 02:00 Pulse Ox 99 02/11/19 02:00 - Labs Result Diagrams: 02/13/19 04:19 02/13/19 04:15 Labs: Laboratory Results - last 24 hr 02/09/19 02/10/19 02/10/19 21:24 04:20 04:20 WBC 6.6 RBC 2.30 L Hgb 8.9 L Hct 25.8 L MCV 112.3 H MCH 38.7 H MCHC 34.5 RDW 14.2 Plt Count 68 L D Retic Count pCO2 pO2 HCO3 ABG pH ABG Total CO2 ABG O2 Saturation ABG O2 Content ABG Base Excess ABG Hemoglobin ABG Carboxyhemoglobin POC ABG HHb (Measured) ABG Methemoglobin ABG O2 Capacity [place] Test A-a O2 Difference Hgb O2 Saturation FiO2 Sodium 135 Potassium 4.1 Chloride 103 Carbon Dioxide 31 H Anion Gap 5 L BUN 24 H Creatinine 0.6 L Est GFR ( Amer) > 60 Est GFR (Non-Af Amer) > 60 POC Glucose (mg/dL) 286 H Random Glucose 152 H Calcium 8.1 L Ferritin 367.0 Vitamin B12 > 1000 H 02/10/19 02/10/19 02/10/19 04:20 04:40 05:11 WBC RBC Hgb Hct MCV MCH MCHC RDW Plt Count Retic Count 1.5 pCO2 40 pO2 96 HCO3 31.4 H ABG pH 7.51 H ABG Total CO2 33.1 H ABG O2 Saturation 100.1 H ABG O2 Content 12.8 L ABG Base Excess 8.2 H ABG Hemoglobin 9.2 L ABG Carboxyhemoglobin 1.8 H POC ABG HHb (Measured) -0.1 L ABG Methemoglobin 0.8 ABG O2 Capacity 12.8 L [place] Test Yes A-a O2 Difference 54.0 Hgb O2 Saturation 97.5 FiO2 28.0 Sodium Potassium Chloride Carbon Dioxide Anion Gap BUN Creatinine Est GFR ( Amer) Est GFR (Non-Af Amer) POC Glucose (mg/dL) 167 H Random Glucose Calcium Ferritin Vitamin B12 02/10/19 02/10/19 02/10/19 11:16 16:18 21:40 WBC RBC Hgb Hct MCV MCH MCHC RDW Plt Count Retic Count pCO2 pO2 HCO3 ABG pH ABG Total CO2 ABG O2 Saturation ABG O2 Content ABG Base Excess ABG Hemoglobin ABG Carboxyhemoglobin POC ABG HHb (Measured) ABG Methemoglobin ABG O2 Capacity [place] Test A-a O2 Difference Hgb O2 Saturation FiO2 Sodium Potassium Chloride Carbon Dioxide Anion Gap BUN Creatinine Est GFR ( Amer) Est GFR (Non-Af Amer) POC Glucose (mg/dL) 245 H 307 H 340 H Random Glucose Calcium Ferritin Vitamin B12 - EKG Data EKG Interpreted by: Myself EKG shows normal: Sinus rhythm Rate: Normal - Imaging and Cardiology Chest x-ray Status: Report reviewed by me Additional comment: Date of service: 02/07/2019 HISTORY: SOB COMPARISON: Portable chest 01/30/2019. TECHNIQUE: 1 view obtained. FINDINGS: LUNGS: Limited medial basilar patchy density left base questionable air bronchograms. Overall aeration is improved bilaterally nevertheless. No right-sided infilt rate appreciable. PLEURA: No significant pleural effusion identified, no pneumothorax apparent. CARDIOVASCULAR: No aortic atherosclerotic calcification present. Stable cardiac silhouette appreciated. No pulmonary vascular congestion. OSSEOUS STRUCTURES: No significant abnormalities. VISUALIZED UPPER ABDOMEN: Questionable embolic material left upper quadrant abdomen. OTHER FINDINGS: None. IMPRESSION: Improved aeration bilaterally with limited airspace disease question medial left base. No pulmonary vascular congestion. CT scan - chest Status: Report reviewed by me Additional comment: Date of service: 02/07/2019 PROCEDURE: 01/15/2019. CT thorax HISTORY: SOB, hx malignancy COMPARISON: None available. TECHNIQUE: Axial computed tomography images were obtained of the chest in the pulmonary arterial phase of enhancement. Coronal and sagittal reformatted images were created and reviewed. Intravenous contrast dose: 73 cc Visipaque 320. Mean Hounsfield value in the main pulmonary artery: 239.07 Radiation dose: Total exam DLP = 324.79 mGy-cm. This CT exam was performed using one or more of the following dose reduction techniques: Automated exposure control, adjustment of the mA and/or kV according to patient size, and/or use of iterative reconstruction technique. FINDINGS: PULMONARY ARTERIES: Unremarkable. No pulmonary embolism. AORTA: No acute findings. No thoracic aortic aneurysm. No atherosclerotic calcification or mural plaque present. LUNGS: Persistent lower lobe infiltrates unchanged. Debris identified in the trachea. The patient was previously intubated now extubated. PLEURAL SPACES: Trace bilateral pleural effusions unchanged. HEART: Unremarkable. No cardiomegaly. No significant pericardial effusion. LYMPH NODES: No lymphadenopathy. BONES, CHEST WALL: Unremarkable. No fracture or destructive lesion OTHER FINDINGS: Gynecomastia. Incomplete visualization of cirrhotic liver and portosystemic shunt. IMPRESSION: Unremarkable CT pulmonary angiogram. No pulmonary embolus. Limitations of the current study both qualitative and quantitative assessment of opacification of the pulmonary arterial system precludes assessment at and below the segmental branch levels. Stable lower lobe infiltrates/atelectasis. Status post extubation, debris identified within the trachea. Assessment & Plan (1) Postextubation stridor Status: Acute Priority: High (2) Aspiration pneumonia Status: Acute Priority: High (3) Cirrhosis of liver Status: Acute Priority: High (4) DM type 2 (diabetes mellitus, type 2) Status: Acute (5) Dyspnea Status: Acute (6) Alcoholic cirrhosis of liver Status: Chronic Priority: High (7) HTN (hypertension) Status: Chronic Priority: Medium - Assessment and Plan (Free Text) Plan: BiPAP IV azithromycin and Zosyn IV methylprednisone DuoNeb every 4 hours [id number] ID and pulmonary consult Telemetry monitoring May need racemic epi for stridor worsens
--- NOTE | 2019-02-11 04:42 | CP.PCM.PN ---
Subjective - Date & Time of Evaluation Date of Evaluation: 02/09/19 Objective - Vital Signs/Intake and Output Vital Signs (last 24 hours): Temp Pulse Resp BP Pulse Ox 98.4 F 71 15 104/53 L 99 02/11/19 00:00 02/11/19 02:00 02/11/19 02:00 02/11/19 02:00 02/11/19 02:00 Intake and Output: 02/10/19 02/11/19 18:59 06:59 Intake Total 980 150 Output Total 1680 700 Balance -700 -550 - Medications Medications: Current Medications Acetaminophen (Tylenol 650mg/20.3ml Solution Ud) 650 mg PO Q6 PRN PRN Reason: Temperature Acetylcysteine (Acetylcysteine 20%) 2 ml INH RBID JOANNA Last Admin: 02/10/19 19:22 Dose: 2 ml Albuterol/Ipratropium (Duoneb 3 Mg/0.5 Mg (3 Ml) Ud) 3 ml INH RQ4 PRN PRN Reason: Shortness of Breath Last Admin: 02/10/19 19:22 Dose: 3 ml Benzonatate (Tessalon Perles) 100 mg PO Q8 PRN PRN Reason: Cough Carvedilol (Coreg) 6.25 mg PO Q12 JOANNA Last Admin: 02/10/19 20:25 Dose: 6.25 mg Dextrose (Dextrose 50% Inj) 0 ml IV STAT PRN; Protocol PRN Reason: Hypoglycemia Protocol Dextrose (Glutose 15) 15 gm PO ONCE PRN PRN Reason: Hypoglycemia Dextrose (Glutose 15) 0 gm PO ONCE PRN; Protocol PRN Reason: Hypoglycemia Protocol Diphenhydramine HCl (Benadryl) 50 mg IVP Q6 PRN PRN Reason: Agitation Folic Acid (Folic Acid) 1 mg PO DAILY [facility] Last Admin: 02/10/19 08:23 Dose: 1 mg Furosemide (Lasix) 20 mg PO DAILY [facility] Last Admin: 02/10/19 08:23 Dose: 20 mg Haloperidol Lactate (Haldol) 5 mg IM Q6 PRN PRN Reason: Agitation Meropenem 1 gm/ Sodium (Chloride) 100 mls @ 100 mls/hr IVPB Q8 [facility]; Protocol Last Admin: 02/11/19 01:43 Dose: 100 mls/hr Insulin Human Lispro (Humalog) 0 units SC ACHS [facility]; Protocol Last Admin: 02/10/19 22:55 Dose: 4 units Lactulose (Enulose) 20 gm PO TID [facility] Last Admin: 02/10/19 16:11 Dose: 20 gm Levothyroxine Sodium (Synthroid) 50 mcg PO DAILY@0630 [facility] Last Admin: 02/10/19 06:50 Dose: 50 mcg Pantoprazole Sodium (Protonix Susp) 40 mg PO DAILY [facility] Last Admin: 02/10/19 08:28 Dose: 40 mg Prednisone (Prednisone Tab) 15 mg PO DAILY [facility] Stop: 02/14/19 23:59 Last Admin: 02/10/19 08:27 Dose: 15 mg Prednisone (Prednisone Tab) 10 mg PO DAILY [facility] Stop: 02/17/19 23:59 Prednisone (Prednisone Tab) 5 mg PO DAILY [facility] Stop: 02/21/19 23:59 Promethazine HCl/Dextromethorphan (Phenergan Dm Syrup) 10 ml PO Q6 PRN PRN Reason: Cough Rifaximin (Xifaxan) 550 mg PO BID [facility]; Protocol Last Admin: 02/10/19 16:13 Dose: 550 mg Spironolactone (Aldactone) 50 mg PO DAILY [facility] Last Admin: 02/10/19 08:23 Dose: 50 mg Tamsulosin HCl (Flomax) 0.4 mg PO DAILY [facility] Last Admin: 02/10/19 08:24 Dose: 0.4 mg Thiamine HCl (Vitamin B1 Tab) 100 mg PO DAILY [facility] Last Admin: 02/10/19 08:21 Dose: 100 mg - Labs Labs: 02/10/19 04:20 02/10/19 04:20 PT 17.7 Seconds (9.8-13.1) H 02/07/19 23:00 INR 1.6 02/07/19 23:00 APTT 26.2 Seconds (25.6-37.1) 02/07/19 23:00
--- NOTE | 2019-02-11 04:43 | CP.PCM.PN ---
Subjective - Date & Time of Evaluation Date of Evaluation: 02/10/19 Objective - Vital Signs/Intake and Output Vital Signs (last 24 hours): Temp Pulse Resp BP Pulse Ox 98.4 F 71 15 104/53 L 99 02/11/19 00:00 02/11/19 02:00 02/11/19 02:00 02/11/19 02:00 02/11/19 02:00 Intake and Output: 02/10/19 02/11/19 18:59 06:59 Intake Total 980 150 Output Total 1680 700 Balance -700 -550 - Medications Medications: Current Medications Acetaminophen (Tylenol 650mg/20.3ml Solution Ud) 650 mg PO Q6 PRN PRN Reason: Temperature Acetylcysteine (Acetylcysteine 20%) 2 ml INH RBID JOANNA Last Admin: 02/10/19 19:22 Dose: 2 ml Albuterol/Ipratropium (Duoneb 3 Mg/0.5 Mg (3 Ml) Ud) 3 ml INH RQ4 PRN PRN Reason: Shortness of Breath Last Admin: 02/10/19 19:22 Dose: 3 ml Benzonatate (Tessalon Perles) 100 mg PO Q8 PRN PRN Reason: Cough Carvedilol (Coreg) 6.25 mg PO Q12 [facility] Last Admin: 02/10/19 20:25 Dose: 6.25 mg Dextrose (Dextrose 50% Inj) 0 ml IV STAT PRN; Protocol PRN Reason: Hypoglycemia Protocol Dextrose (Glutose 15) 15 gm PO ONCE PRN PRN Reason: Hypoglycemia Dextrose (Glutose 15) 0 gm PO ONCE PRN; Protocol PRN Reason: Hypoglycemia Protocol Diphenhydramine HCl (Benadryl) 50 mg IVP Q6 PRN PRN Reason: Agitation Folic Acid (Folic Acid) 1 mg PO DAILY [facility] Last Admin: 02/10/19 08:23 Dose: 1 mg Furosemide (Lasix) 20 mg PO DAILY [facility] Last Admin: 02/10/19 08:23 Dose: 20 mg Haloperidol Lactate (Haldol) 5 mg IM Q6 PRN PRN Reason: Agitation Meropenem 1 gm/ Sodium (Chloride) 100 mls @ 100 mls/hr IVPB Q8 [facility]; Protocol Last Admin: 02/11/19 01:43 Dose: 100 mls/hr Insulin Human Lispro (Humalog) 0 units SC ACHS [facility]; Protocol Last Admin: 02/10/19 22:55 Dose: 4 units Lactulose (Enulose) 20 gm PO TID [facility] Last Admin: 02/10/19 16:11 Dose: 20 gm Levothyroxine Sodium (Synthroid) 50 mcg PO DAILY@0630 [facility] Last Admin: 02/10/19 06:50 Dose: 50 mcg Pantoprazole Sodium (Protonix Susp) 40 mg PO DAILY [facility] Last Admin: 02/10/19 08:28 Dose: 40 mg Prednisone (Prednisone Tab) 15 mg PO DAILY [facility] Stop: 02/14/19 23:59 Last Admin: 02/10/19 08:27 Dose: 15 mg Prednisone (Prednisone Tab) 10 mg PO DAILY [facility] Stop: 02/17/19 23:59 Prednisone (Prednisone Tab) 5 mg PO DAILY [facility] Stop: 02/21/19 23:59 Promethazine HCl/Dextromethorphan (Phenergan Dm Syrup) 10 ml PO Q6 PRN PRN Reason: Cough Rifaximin (Xifaxan) 550 mg PO BID [facility]; Protocol Last Admin: 02/10/19 16:13 Dose: 550 mg Spironolactone (Aldactone) 50 mg PO DAILY [facility] Last Admin: 02/10/19 08:23 Dose: 50 mg Tamsulosin HCl (Flomax) 0.4 mg PO DAILY [facility] Last Admin: 02/10/19 08:24 Dose: 0.4 mg Thiamine HCl (Vitamin B1 Tab) 100 mg PO DAILY [facility] Last Admin: 02/10/19 08:21 Dose: 100 mg - Labs Labs: 02/10/19 04:20 02/10/19 04:20 PT 17.7 Seconds (9.8-13.1) H 02/07/19 23:00 INR 1.6 02/07/19 23:00 APTT 26.2 Seconds (25.6-37.1) 02/07/19 23:00
[2019-02-11 05:38] LABS: HEMOGLOBIN 8.5 g/dL (12.0-18.0); MEAN CORPUSCULAR HEMOGLOBIN 38.2 pg (27.0-31.0); MEAN CORPUSCULAR HGB CONC 34.4 g/dL (33.0-37.0); RBC 2.24 Mil/uL (4.40-5.90); RED CELL DISTRIBUTION WIDTH 14.5 % (11.5-14.5); WHITE BLOOD COUNT 7.2 K/uL (4.8-10.8)
[2019-02-11 05:51] LABS: BLOOD UREA NITROGEN 17 mg/dl (9-20); CALCIUM 7.8 mg/dL (8.4-10.2); GFR NON-AFRICAN AMERICAN > 60
[2019-02-11] MEDS: Levothyroxine 50 MCG TAB PO SCH (06:45)
[2019-02-11] MEDS: Albuterol-Ipratrop 3 mg / 0.5 (3 ml) UD INH PRN ×2 (07:27→19:43)
[2019-02-11] MEDS: Acetylcysteine 20% Inhal Soln (4ml) INH SCH ×2 (07:27→19:43)
--- NOTE | 2019-02-11 07:37 | CP.CCUPN ---
CCU Subjective - Physician Review Subjective (Free Text): 02/11/19 18:10 The patient was Seen and examined by me at the bedside during ICU round, Medical records reviewed and Management issues were discussed and formulated with the house staff. Events reviewed Patient is 68 years old male with past medical history of HTN, Hypercholesterolemia, Diabetes, Gastritis, Chronic Kidney Disease, liver cirrhosis, hepatic encephalopathy and liver malignancy Patient with recent hospitalization and ICU admission for acute respiratory failure, intubated for altered mental status, confusion in the setting of markedly elevated ammonia level up to 367 due to hepatic encephalopathy, Patient was found to be agonal breathing shallow respiration minimal response to pain, [place] Was ordered but he was urgently intubated and mechanically ventilated Patient clinically improved and was successfully extubated and transferred out of the ICU, and eventually discharged to acute rehab Patient was brought in to the emergency room from Rehab for evaluation of shortness of breath and wheezing likely in the setting of aspiration pneumonia Today patient is comfortable, in no apparent distress Afebrile, NSR on the monitor Last 24H I&O 1250/2680 CCU Objective - Vital Signs / Intake & Output Vital Signs (Last 4 hours): Vital Signs Temp Pulse Resp BP Pulse Ox 02/11/19 06:00 66 15 116/44 L 99 02/11/19 04:00 97.5 F L 73 18 98/52 L 99 Intake and Output (Last 8hrs): Intake & Output 02/10/19 02/11/19 02/11/19 22:59 06:59 14:59 Intake Total 560 240 Output Total 1580 300 Balance -1020 -60 Weight 198 lb Intake: IV 100 20 Intake, Piggyback 100 Oral 460 120 Output: Urine 1580 300 Urine, Voided 1580 300 Other: # Voids Urine, Voided 1 # Bowel Movements 1 - Physical Exam Physical Exam Limitations: Positive for: Clinical Condition Head: Positive for: Atraumatic, Normocephalic Pupils: Positive for: PERRL. Negative for: Sluggish, Non-Reactive Extroacular Muscles: Positive for: EOMI Conjunctiva: Positive for: Normal. Negative for: Injected, Icteric Ears: Positive for: Normal Mouth: Positive for: Moist Mucous Membranes Neck: Positive for: Normal Range of Motion, Trachea Midline. Negative for: Meningeal Signs, MIDLINE TENDERNESS, Paraspinal Tenderness, JVD, Lymphadenopathy, Bruit, Other Respiratory/Chest: Positive for: Decreased Breath Sounds. Negative for: Rales, Retracting, Rhonchi Cardiovascular: Positive for: Regular Rate and Rhythm, Normal S1, S2, Peripheal Pulses Present. Negative for: Murmurs, Irregular Rhythm, Tachycardic, Bradycardic Abdomen: Positive for: Distention, Normal Bowel Sounds Upper Extremity: Positive for: Edema. Negative for: Cyanosis Psychiatric: Positive for: Alert, Oriented x 3 - Medications Active Medications: Active Medications Generic Name Dose Route Start Last Admin Trade Name Freq PRN Reason Stop Dose Admin Acetaminophen 650 mg 02/08/19 01:35 Tylenol 650mg/20.3ml Solution Ud PO Q6 PRN Temperature Acetylcysteine 2 ml 02/09/19 20:00 02/11/19 07:27 Acetylcysteine 20% INH 2 ml RBID JOANNA Administration Albuterol/Ipratropium 3 ml 02/08/19 01:13 02/11/19 07:27 Duoneb 3 Mg/0.5 Mg (3 Ml) Ud INH 3 ml RQ4 PRN Administration Shortness of Breath Benzonatate 100 mg 02/08/19 01:35 Tessalon Perles PO Q8 PRN Cough Carvedilol 6.25 mg 02/08/19 09:00 02/10/19 20:25 Coreg PO 6.25 mg Q12 JOANNA Administration Dextrose 0 ml 02/08/19 01:21 Dextrose 50% Inj IV STAT PRN Hypoglycemia Protocol Protocol Dextrose 15 gm 02/08/19 01:21 Glutose 15 PO ONCE PRN Hypoglycemia Dextrose 0 gm 02/08/19 01:21 Glutose 15 PO ONCE PRN Hypoglycemia Protocol Protocol Diphenhydramine HCl 50 mg 02/08/19 01:13 Benadryl IVP Q6 PRN Agitation Folic Acid 1 mg 02/08/19 09:00 02/10/19 08:23 Folic Acid PO 1 mg DAILY JOANNA Administration Furosemide 20 mg 02/08/19 09:00 02/10/19 08:23 Lasix PO 20 mg DAILY JOANNA Administration Haloperidol Lactate 5 mg 02/08/19 01:21 Haldol IM Q6 PRN Agitation Meropenem 1 gm/ Sodium 100 mls @ 100 mls/hr 02/08/19 17:00 02/11/19 01:43 Chloride IVPB 100 mls/hr Q8 JOANNA Administration Protocol Insulin Human Lispro 0 units 02/08/19 07:30 02/10/19 22:55 Humalog SC 4 units ACHS JOANNA Administration Protocol Lactulose 20 gm 02/08/19 09:00 02/10/19 16:11 Enulose PO 20 gm TID JOANNA Administration Levothyroxine Sodium 50 mcg 02/08/19 06:30 02/11/19 06:45 Synthroid PO 50 mcg DAILY@0630 JOANNA Administration Pantoprazole Sodium 40 mg 02/08/19 09:00 02/10/19 08:28 Protonix Susp PO 40 mg DAILY JOANNA Administration Prednisone 15 mg 02/10/19 09:00 02/10/19 08:27 Prednisone Tab PO 02/14/19 23:59 15 mg DAILY JOANNA Administration Prednisone 10 mg 02/15/19 09:00 Prednisone Tab PO 02/17/19 23:59 DAILY JOANNA Prednisone 5 mg 02/18/19 09:00 Prednisone Tab PO 02/21/19 23:59 DAILY [facility] Promethazine HCl/Dextromethorphan 10 ml 02/09/19 15:49 Phenergan Dm Syrup PO Q6 PRN Cough Rifaximin 550 mg 02/08/19 09:00 02/10/19 16:13 Xifaxan PO 550 mg BID JOANNA Administration Protocol Spironolactone 50 mg 02/08/19 09:00 02/10/19 08:23 Aldactone PO 50 mg DAILY JOANNA Administration Tamsulosin HCl 0.4 mg 02/08/19 09:00 02/10/19 08:24 Flomax PO 0.4 mg DAILY [facility] Administration Thiamine HCl 100 mg 02/08/19 09:00 02/10/19 08:21 Vitamin B1 Tab PO 100 mg DAILY JOANNA Administration - Patient Studies Lab Studies: Microbiology Studies 02/07/19 23:00 Blood Culture - Preliminary Blood-Venous NO GROWTH AFTER 3 DAYS Lab Studies 02/11/19 02/11/19 02/10/19 Range/Units 04:50 04:50 21:40 WBC 7.2 (4.8-10.8) K/uL RBC 2.24 L (4.40-5.90) Mil/uL Hgb 8.5 L (12.0-18.0) g/dL Hct 24.8 L (35.0-51.0) % MCV 111.0 H (80.0-94.0) fl MCH 38.2 H (27.0-31.0) pg MCHC 34.4 (33.0-37.0) g/dL RDW 14.5 (11.5-14.5) % Plt Count 66 L (130-400) K/uL pCO2 (35-45) mm/Hg pO2 (80-100) mm/Hg HCO3 (21-28) mmol/L ABG pH (7.35-7.45) ABG Total CO2 (22-28) mmol/L ABG O2 Saturation (95-98) % ABG O2 Content (15-23) ML/dL ABG Base Excess (-2.0-3.0) mmol/L ABG Hemoglobin (11.7-17.4) g/dL ABG Carboxyhemoglobin (0.5-1.5) % POC ABG HHb (Measured) (0.0-5.0) % ABG Methemoglobin (0.0-3.0) % ABG O2 Capacity (16-24) mL/dL [place] Test A-a O2 Difference mm/Hg Hgb O2 Saturation (95.0-98.0) % FiO2 % Sodium 134 (132-148) mmol/l Potassium 4.0 (3.6-5.0) MMOL/L Chloride 100 (98-107) mmol/L Carbon Dioxide 32 H (22-30) mmol/L Anion Gap 6 L (10-20) BUN 17 (9-20) mg/dl Creatinine 0.6 L (0.8-1.5) mg/dl Est GFR ( Amer) > 60 Est GFR (Non-Af Amer) > 60 POC Glucose (mg/dL) 340 H (65-110) mg/dL Random Glucose 150 H (75-110) mg/dL Calcium 7.8 L (8.4-10.2) mg/dL 02/10/19 02/10/19 02/10/19 Range/Units 16:18 11:16 05:11 WBC (4.8-10.8) K/uL RBC (4.40-5.90) Mil/uL Hgb (12.0-18.0) g/dL Hct (35.0-51.0) % MCV (80.0-94.0) fl MCH (27.0-31.0) pg MCHC (33.0-37.0) g/dL RDW (11.5-14.5) % Plt Count (130-400) K/uL pCO2 40 (35-45) mm/Hg pO2 96 (80-100) mm/Hg HCO3 31.4 H (21-28) mmol/L ABG pH 7.51 H (7.35-7.45) ABG Total CO2 33.1 H (22-28) mmol/L ABG O2 Saturation 100.1 H (95-98) % ABG O2 Content 12.8 L (15-23) ML/dL ABG Base Excess 8.2 H (-2.0-3.0) mmol/L ABG Hemoglobin 9.2 L (11.7-17.4) g/dL ABG Carboxyhemoglobin 1.8 H (0.5-1.5) % POC ABG HHb (Measured) -0.1 L (0.0-5.0) % ABG Methemoglobin 0.8 (0.0-3.0) % ABG O2 Capacity 12.8 L (16-24) mL/dL [place] Test Yes A-a O2 Difference 54.0 mm/Hg Hgb O2 Saturation 97.5 (95.0-98.0) % FiO2 28.0 % Sodium (132-148) mmol/l Potassium (3.6-5.0) MMOL/L Chloride (98-107) mmol/L Carbon Dioxide (22-30) mmol/L Anion Gap (10-20) BUN (9-20) mg/dl Creatinine (0.8-1.5) mg/dl Est GFR ( Amer) Est GFR (Non-Af Amer) POC Glucose (mg/dL) 307 H 245 H (65-110) mg/dL Random Glucose (75-110) mg/dL Calcium (8.4-10.2) mg/dL 02/10/19 02/09/19 Range/Units 04:40 21:24 WBC (4.8-10.8) K/uL RBC (4.40-5.90) Mil/uL Hgb (12.0-18.0) g/dL Hct (35.0-51.0) % MCV (80.0-94.0) fl MCH (27.0-31.0) pg MCHC (33.0-37.0) g/dL RDW (11.5-14.5) % Plt Count (130-400) K/uL pCO2 (35-45) mm/Hg pO2 (80-100) mm/Hg HCO3 (21-28) mmol/L ABG pH (7.35-7.45) ABG Total CO2 (22-28) mmol/L ABG O2 Saturation (95-98) % ABG O2 Content (15-23) ML/dL ABG Base Excess (-2.0-3.0) mmol/L ABG Hemoglobin (11.7-17.4) g/dL ABG Carboxyhemoglobin (0.5-1.5) % POC ABG HHb (Measured) (0.0-5.0) % ABG Methemoglobin (0.0-3.0) % ABG O2 Capacity (16-24) mL/dL [place] Test A-a O2 Difference mm/Hg Hgb O2 Saturation (95.0-98.0) % FiO2 % Sodium (132-148) mmol/l Potassium (3.6-5.0) MMOL/L Chloride (98-107) mmol/L Carbon Dioxide (22-30) mmol/L Anion Gap (10-20) BUN (9-20) mg/dl Creatinine (0.8-1.5) mg/dl Est GFR ( Amer) Est GFR (Non-Af Amer) POC Glucose (mg/dL) 167 H 286 H (65-110) mg/dL Random Glucose (75-110) mg/dL Calcium (8.4-10.2) mg/dL Laboratory Results - last 24 hr 02/09/19 02/10/19 02/10/19 21:24 04:40 05:11 WBC RBC Hgb Hct MCV MCH MCHC RDW Plt Count pCO2 40 pO2 96 HCO3 31.4 H ABG pH 7.51 H ABG Total CO2 33.1 H ABG O2 Saturation 100.1 H ABG O2 Content 12.8 L ABG Base Excess 8.2 H ABG Hemoglobin 9.2 L ABG Carboxyhemoglobin 1.8 H POC ABG HHb (Measured) -0.1 L ABG Methemoglobin 0.8 ABG O2 Capacity 12.8 L [place]up[place] Test Yes A-a O2 Difference 54.0 Hgb O2 Saturation 97.5 FiO2 28.0 Sodium Potassium Chloride Carbon Dioxide Anion Gap BUN Creatinine Est GFR ( Amer) Est GFR (Non-Af Amer) POC Glucose (mg/dL) 286 H 167 H Random Glucose Calcium 02/10/19 02/10/19 02/10/19 11:16 16:18 21:40 WBC RBC Hgb Hct MCV MCH MCHC RDW Plt Count pCO2 pO2 HCO3 ABG pH ABG Total CO2 ABG O2 Saturation ABG O2 Content ABG Base Excess ABG Hemoglobin ABG Carboxyhemoglobin POC ABG HHb (Measured) ABG Methemoglobin ABG O2 Capacity [place] Test A-a O2 Difference Hgb O2 Saturation FiO2 Sodium Potassium Chloride Carbon Dioxide Anion Gap BUN Creatinine Est GFR ( Amer) Est GFR (Non-Af Amer) POC Glucose (mg/dL) 245 H 307 H 340 H Random Glucose Calcium 02/11/19 02/11/19 04:50 04:50 WBC 7.2 RBC 2.24 L Hgb 8.5 L Hct 24.8 L MCV 111.0 H MCH 38.2 H MCHC 34.4 RDW 14.5 Plt Count 66 L pCO2 pO2 HCO3 ABG pH ABG Total CO2 ABG O2 Saturation ABG O2 Content ABG Base Excess ABG Hemoglobin ABG Carboxyhemoglobin POC ABG HHb (Measured) ABG Methemoglobin ABG O2 Capacity [place] Test A-a O2 Difference Hgb O2 Saturation FiO2 Sodium 134 Potassium 4.0 Chloride 100 Carbon Dioxide 32 H Anion Gap 6 L BUN 17 Creatinine 0.6 L Est GFR ( Amer) > 60 Est GFR (Non-Af Amer) > 60 POC Glucose (mg/dL) Random Glucose 150 H Calcium 7.8 L Radiology Impressions: Radiology Impressions Chest X-Ray 02/09/19 16:18 IMPRESSION: Poor inspiration with low lung volumes common crowded bronchovascular markings and mild bibasilar atelectasis Soft Tissue Neck CT 02/09/19 18:48 IMPRESSION: There is a tiny amount of air seen within the soft tissues just anterior to the trachea at the level of the thyroid gland as well as on along the submucosal surfaces posteriorly. In addition, there is a thin linear density which is located in the upper trachea at the level of both clavicular heads that could represent adherent mucus or a small tracheal web. Moderate-sized right-sided effusion and mild atelectasis. Suspect trace left-sided effusion and minimal left atelectasis. Note this report was placed in PA review folder for follow up Fingerstick Blood Sugar Results: 340 Critical Care Progress Note - Extremities/Vascular Does the Patient have a Central Venous Catheter?: No Does the Patient need a Central Venous Catheter?: No Does the Patient have a Howe Catheter?: No Does the Patient need a Howe Catheter?: No - Nutrition Nutrition: Nutrition Category Date Time Status Pureed [Dysphagia/Modified Consistency Diet] [DIET] Diets 02/08/19 Dinner Active Assessment/Plan (1) Aspiration pneumonitis Current Visit: Yes Status: Acute Comment: Continue current IV antibiotic with meropenem as per ID (2) Encephalopathy Current Visit: Yes Status: Acute Priority: High Comment: Continue lactulose and rifaximin Aldactone 50 mg PO DAILY (3) Cirrhosis of liver Current Visit: Yes Status: Acute Priority: High (4) Coagulopathy Current Visit: No Status: Acute (5) Hepatocellular carcinoma Current Visit: No Status: Acute
--- NOTE | 2019-02-11 08:11 | CP.PCM.PN ---
Subjective - Date & Time of Evaluation Date of Evaluation: 02/11/19 Time of Evaluation: 08:11 - Subjective Subjective: CLINICALLY IMPROVED NO CHEST PAINS/SOB COUGH LESS AWAKE AND ALERT Objective - Vital Signs/Intake and Output Vital Signs (last 24 hours): Temp Pulse Resp BP Pulse Ox 97.5 F L 66 15 116/44 L 99 02/11/19 04:00 02/11/19 06:00 02/11/19 06:00 02/11/19 06:00 02/11/19 06:00 Intake and Output: 02/11/19 02/11/19 06:59 18:59 Intake Total 270 Output Total 1000 Balance -730 - Medications Medications: Current Medications Acetaminophen (Tylenol 650mg/20.3ml Solution Ud) 650 mg PO Q6 PRN PRN Reason: Temperature Acetylcysteine (Acetylcysteine 20%) 2 ml INH RBID JOANNA Last Admin: 02/11/19 07:27 Dose: 2 ml Albuterol/Ipratropium (Duoneb 3 Mg/0.5 Mg (3 Ml) Ud) 3 ml INH RQ4 PRN PRN Reason: Shortness of Breath Last Admin: 02/11/19 07:27 Dose: 3 ml Benzonatate (Tessalon Perles) 100 mg PO Q8 PRN PRN Reason: Cough Carvedilol (Coreg) 6.25 mg PO Q12 [facility] Last Admin: 02/10/19 20:25 Dose: 6.25 mg Dextrose (Dextrose 50% Inj) 0 ml IV STAT PRN; Protocol PRN Reason: Hypoglycemia Protocol Dextrose (Glutose 15) 15 gm PO ONCE PRN PRN Reason: Hypoglycemia Dextrose (Glutose 15) 0 gm PO ONCE PRN; Protocol PRN Reason: Hypoglycemia Protocol Diphenhydramine HCl (Benadryl) 50 mg IVP Q6 PRN PRN Reason: Agitation Folic Acid (Folic Acid) 1 mg PO DAILY [facility] Last Admin: 02/10/19 08:23 Dose: 1 mg Furosemide (Lasix) 20 mg PO DAILY [facility] Last Admin: 02/10/19 08:23 Dose: 20 mg Haloperidol Lactate (Haldol) 5 mg IM Q6 PRN PRN Reason: Agitation Meropenem 1 gm/ Sodium (Chloride) 100 mls @ 100 mls/hr IVPB Q8 JOANNA; Protocol Last Admin: 02/11/19 01:43 Dose: 100 mls/hr Insulin Human Lispro (Humalog) 0 units SC ACHS [facility]; Protocol Last Admin: 02/10/19 22:55 Dose: 4 units Lactulose (Enulose) 20 gm PO TID [facility] Last Admin: 02/10/19 16:11 Dose: 20 gm Levothyroxine Sodium (Synthroid) 50 mcg PO DAILY@0630 [facility] Last Admin: 02/11/19 06:45 Dose: 50 mcg Pantoprazole Sodium (Protonix Susp) 40 mg PO DAILY [facility] Last Admin: 02/10/19 08:28 Dose: 40 mg Prednisone (Prednisone Tab) 15 mg PO DAILY [facility] Stop: 02/14/19 23:59 Last Admin: 02/10/19 08:27 Dose: 15 mg Prednisone (Prednisone Tab) 10 mg PO DAILY [facility] Stop: 02/17/19 23:59 Prednisone (Prednisone Tab) 5 mg PO DAILY [facility] Stop: 02/21/19 23:59 Promethazine HCl/Dextromethorphan (Phenergan Dm Syrup) 10 ml PO Q6 PRN PRN Reason: Cough Rifaximin (Xifaxan) 550 mg PO BID [facility]; Protocol Last Admin: 02/10/19 16:13 Dose: 550 mg Spironolactone (Aldactone) 50 mg PO DAILY [facility] Last Admin: 02/10/19 08:23 Dose: 50 mg Tamsulosin HCl (Flomax) 0.4 mg PO DAILY [facility] Last Admin: 02/10/19 08:24 Dose: 0.4 mg Thiamine HCl (Vitamin B1 Tab) 100 mg PO DAILY [facility] Last Admin: 02/10/19 08:21 Dose: 100 mg - Labs Labs: 02/11/19 04:50 02/11/19 04:50 PT 17.7 Seconds (9.8-13.1) H 02/07/19 23:00 INR 1.6 02/07/19 23:00 APTT 26.2 Seconds (25.6-37.1) 02/07/19 23:00 - Constitutional Appears: No Acute Distress - Head Exam Head Exam: ATRAUMATIC, NORMAL INSPECTION, NORMOCEPHALIC - Eye Exam Eye Exam: EOMI, Normal appearance, PERRL Pupil Exam: NORMAL ACCOMODATION, PERRL - ENT Exam ENT Exam: Mucous Membranes Moist, Normal Exam - Neck Exam Neck Exam: Full ROM, Normal Inspection. absent: Lymphadenopathy - Respiratory Exam Respiratory Exam: Clear to Ausculation Bilateral, Prolonged Expiratory Phase, NORMAL BREATHING PATTERN - Cardiovascular Exam Cardiovascular Exam: REGULAR RHYTHM, +S1, +S2. absent: Murmur - GI/Abdominal Exam GI & Abdominal Exam: Soft, Normal Bowel Sounds. absent: Tenderness - Rectal Exam Rectal Exam: NORMAL INSPECTION - Extremities Exam Extremities Exam: Full ROM, Normal Capillary Refill, Normal Inspection. absent: Joint Swelling, Pedal Edema - Back Exam Back Exam: NORMAL INSPECTION - Neurological Exam Neurological Exam: Alert, Awake, CN II-XII Intact, Oriented x3 - Psychiatric Exam Psychiatric exam: Normal Affect, Normal Mood - Skin Skin Exam: Dry, Intact, Normal Color, Warm Assessment and Plan - Assessment and Plan (Free Text) Assessment: ASPIRATION PNEUMONIA--IMPROVING Plan: CONTINUE PRESENT RX
[2019-02-11] MEDS: Insulin Lispro (humaLOG) 100 Units/ml Inj SC SCH ×4 (08:47→22:08)
[2019-02-11] MEDS: Pantoprazole 40 mg Susp UD PO SCH (08:49)
--- NOTE | 2019-02-11 08:54 | CON ---
DATE: 02/08/2019 HISTORY OF PRESENT ILLNESS: Mr. Hadley is a 69-year-old male who was referred for pulmonary evaluation by Dr. Rowe. He was originally admitted with hepatic encephalopathy requiring endotracheal intubation on ventilation in the Intensive Care Unit, then he was transferred to acute rehab for physical therapy and occupational therapy and then back to the emergency room for shortness of breath and presently, he is on telemetry, be monitored for aspiration pneumonia. He is awake, alert and oriented, still has some difficulty with swallowing and is waiting for speech therapy to evaluate him for swallowing. He indicated that he had been short of breath for quite a few days. He is awake, alert and oriented to person, place and time. PAST MEDICAL HISTORY: He has a past medical history of chronic alcoholism, cirrhosis of the liver, and liver cancer. FAMILY HISTORY: Nonrevealing. SOCIAL HISTORY: He drinks alcohol heavily. No other history is available. PHYSICAL EXAMINATION GENERAL: The patient is alert and oriented. VITAL SIGNS: Remarkable for blood pressure of 115/72 with a pulse of 87, respiratory rate is 18. He is afebrile. O2 sat 97% on facemask. SKIN: Shows . HEENT: Pupils are equal and reactive to light and accommodation. Mouth shows hygiene. NECK: JVP flat. LUNGS: Show bilateral coarse rales, but fair aeration. HEART: S1 and S2. ABDOMEN: Soft. No tenderness. EXTREMITIES: Trace edema. CENTRAL NERVOUS SYSTEM: The patient is alert and oriented. He is responsive appropriately to questions. LABORATORY DATA: Remarkable for WBC of 9.8, hemoglobin 9.4, and platelet count of 80,000. Sodium 133, potassium 5.3, BUN 30, creatinine 0.8, serum glucose 284. Ammonia level 23 down from 95. Chest x-ray is remarkable for improved aeration on both lungs with airspace disease, medial left base. IMPRESSION: This 69-year-old male, chronic alcoholic, who was originally admitted with respiratory distress and still has respiratory distress present. The clinical picture is compatible with aspiration pneumonia. PLAN: We will obtain sputum for Gram stain and cultures. When agrees with present antibiotic therapy and oxygenation, I would continue to monitor with you and follow with you. Further therapy will depend on findings. Edwar Mancilla MD [facility] # [phone]
--- NOTE | 2019-02-11 11:55 | CP.PCM.PN ---
Subjective - Date & Time of Evaluation Date of Evaluation: 02/11/19 Time of Evaluation: 11:54 - Subjective Subjective: ID Note- Patient seen and examined today in ICU. pt. is awake and alert but apparently the other day he became tachypneic and tachycardic and was transferred to ICU. Pt. explains he felt sob and like he could not cough out his sputum the other day but states feels much better today. Objective - Vital Signs/Intake and Output Vital Signs (last 24 hours): Temp Pulse Resp BP Pulse Ox 98.3 F 72 14 106/55 L 99 02/11/19 08:00 02/11/19 10:00 02/11/19 10:00 02/11/19 10:00 02/11/19 10:00 Intake and Output: 02/11/19 02/11/19 06:59 18:59 Intake Total 270 580 Output Total 1000 350 Balance -730 230 - Medications Medications: Current Medications Acetaminophen (Tylenol 650mg/20.3ml Solution Ud) 650 mg PO Q6 PRN PRN Reason: Temperature Acetylcysteine (Acetylcysteine 20%) 2 ml INH RBID [facility] Last Admin: 02/11/19 07:27 Dose: 2 ml Albuterol/Ipratropium (Duoneb 3 Mg/0.5 Mg (3 Ml) Ud) 3 ml INH RQ4 PRN PRN Reason: Shortness of Breath Last Admin: 02/11/19 07:27 Dose: 3 ml Benzonatate (Tessalon Perles) 100 mg PO Q8 PRN PRN Reason: Cough Carvedilol (Coreg) 6.25 mg PO Q12 [facility] Last Admin: 02/11/19 08:43 Dose: 6.25 mg Dextrose (Dextrose 50% Inj) 0 ml IV STAT PRN; Protocol PRN Reason: Hypoglycemia Protocol Dextrose (Glutose 15) 15 gm PO ONCE PRN PRN Reason: Hypoglycemia Dextrose (Glutose 15) 0 gm PO ONCE PRN; Protocol PRN Reason: Hypoglycemia Protocol Diphenhydramine HCl (Benadryl) 50 mg IVP Q6 PRN PRN Reason: Agitation Folic Acid (Folic Acid) 1 mg PO DAILY [facility] Last Admin: 02/11/19 08:44 Dose: 1 mg Furosemide (Lasix) 20 mg PO DAILY [facility] Last Admin: 02/11/19 08:47 Dose: 20 mg Haloperidol Lactate (Haldol) 5 mg IM Q6 PRN PRN Reason: Agitation Meropenem 1 gm/ Sodium (Chloride) 100 mls @ 100 mls/hr IVPB Q8 [facility]; Protocol Last Admin: 02/11/19 08:48 Dose: 100 mls/hr Insulin Human Lispro (Humalog) 0 units SC ACHS [facility]; Protocol Last Admin: 02/11/19 08:47 Dose: 1 units Lactulose (Enulose) 20 gm PO TID [facility] Last Admin: 02/11/19 10:08 Dose: 20 gm Levothyroxine Sodium (Synthroid) 50 mcg PO DAILY@0630 [facility] Last Admin: 02/11/19 06:45 Dose: 50 mcg Pantoprazole Sodium (Protonix Susp) 40 mg PO DAILY [facility] Last Admin: 02/11/19 08:49 Dose: 40 mg Prednisone (Prednisone Tab) 15 mg PO DAILY [facility] Stop: 02/14/19 23:59 Last Admin: 02/11/19 08:48 Dose: 15 mg Prednisone (Prednisone Tab) 10 mg PO DAILY [facility] Stop: 02/17/19 23:59 Prednisone (Prednisone Tab) 5 mg PO DAILY [facility] Stop: 02/21/19 23:59 Promethazine HCl/Dextromethorphan (Phenergan Dm Syrup) 10 ml PO Q6 PRN PRN Reason: Cough Rifaximin (Xifaxan) 550 mg PO BID [facility]; Protocol Last Admin: 02/11/19 08:51 Dose: 550 mg Spironolactone (Aldactone) 50 mg PO DAILY [facility] Last Admin: 02/11/19 08:42 Dose: 50 mg Tamsulosin HCl (Flomax) 0.4 mg PO DAILY [facility] Last Admin: 02/11/19 08:43 Dose: 0.4 mg Thiamine HCl (Vitamin B1 Tab) 100 mg PO DAILY [facility] Last Admin: 02/11/19 08:50 Dose: 100 mg - Labs Labs: 02/11/19 04:50 02/11/19 04:50 PT 17.7 Seconds (9.8-13.1) H 02/07/19 23:00 INR 1.6 02/07/19 23:00 APTT 26.2 Seconds (25.6-37.1) 02/07/19 23:00 - Additional Findings Additional findings: - Constitutional Appears: No Acute Distress - Head Exam Head Exam: ATRAUMATIC - Eye Exam Eye Exam: EOMI - ENT Exam ENT Exam: Normal Oropharynx - Neck Exam Neck exam: Positive for: Full Rom - Respiratory Exam Additional comments: slight tachypnea no wheezing decreased breath sound at right base - Cardiovascular Exam Cardiovascular Exam: RRR, +S1, +S2 - GI/Abdominal Exam GI & Abdominal Exam: Normal Bowel Sounds, Soft Additional comments: NT, ND - Extremities Exam Extremities exam: Positive for: normal inspection - Neurological Exam Neurological exam: Alert, Oriented x 3 Laboratory Results - last 72 hr 02/08/19 02/08/19 02/09/19 16:17 21:33 04:41 WBC 6.9 RBC 2.24 L Hgb 8.7 L Hct 25.2 L MCV 112.6 H MCH 39.1 H MCHC 34.7 RDW 14.4 Plt Count 62 L MPV Neut % (Auto) Lymph % (Auto) Mccone % (Auto) Eos % (Auto) Baso % (Auto) Neut # (Auto) Lymph # (Auto) Mccone # (Auto) Eos # (Auto) Baso # (Auto) Retic Count pCO2 pO2 HCO3 ABG pH ABG Total CO2 ABG O2 Saturation ABG O2 Content ABG Base Excess ABG Hemoglobin ABG Carboxyhemoglobin POC ABG HHb (Measured) ABG Methemoglobin ABG O2 Capacity [place] Test ABG Potassium A-a O2 Difference Hgb O2 Saturation Glucose Lactate Vent Mode Mechanical Rate FiO2 Inspiratory BiPAP Expiratory BiPAP Crit Value Called To Crit Value Called By Crit Value Read Back Blood Gas Notified Time Sodium Potassium Chloride Carbon Dioxide Anion Gap BUN Creatinine Est GFR ( Amer) Est GFR (Non-Af Amer) POC Glucose (mg/dL) 293 H 323 H Random Glucose Lactic Acid Calcium Ferritin Total Bilirubin AST ALT Alkaline Phosphatase Ammonia NT-Pro-B Natriuret Pep Total Protein Albumin Globulin Albumin/Globulin Ratio Vitamin B12 Arterial Blood Potassium 02/09/19 02/09/19 02/09/19 04:41 05:30 11:05 WBC RBC Hgb Hct MCV MCH MCHC RDW Plt Count MPV Neut % (Auto) Lymph % (Auto) Mccone % (Auto) Eos % (Auto) Baso % (Auto) Neut # (Auto) Lymph # (Auto) Mccone # (Auto) Eos # (Auto) Baso # (Auto) Retic Count pCO2 pO2 HCO3 ABG pH ABG Total CO2 ABG O2 Saturation ABG O2 Content ABG Base Excess ABG Hemoglobin ABG Carboxyhemoglobin POC ABG HHb (Measured) ABG Methemoglobin ABG O2 Capacity [place] Test ABG Potassium A-a O2 Difference Hgb O2 Saturation Glucose Lactate Vent Mode Mechanical Rate FiO2 Inspiratory BiPAP Expiratory BiPAP Crit Value Called To Crit Value Called By Crit Value Read Back Blood Gas Notified Time Sodium 136 Potassium 4.8 Chloride 107 Carbon Dioxide 26 Anion Gap 8 L BUN 27 H Creatinine 0.7 L Est GFR ( Amer) > 60 Est GFR (Non-Af Amer) > 60 POC Glucose (mg/dL) 204 H 267 H Random Glucose 225 H Lactic Acid Calcium 8.3 L Ferritin Total Bilirubin 0.9 AST 45 ALT 48 Alkaline Phosphatase 149 H Ammonia NT-Pro-B Natriuret Pep Total Protein 5.7 L Albumin 2.0 L D Globulin 3.7 Albumin/Globulin Ratio 0.5 L Vitamin B12 Arterial Blood Potassium 02/09/19 02/09/19 02/09/19 15:41 16:18 16:34 WBC 10.5 D RBC 2.72 L Hgb 10.5 L Hct 30.7 L MCV 113.0 H MCH 38.5 H MCHC 34.1 RDW 14.5 Plt Count 108 L D MPV 9.9 Neut % (Auto) 74.7 Lymph % (Auto) 15.0 L Mccone % (Auto) 9.8 Eos % (Auto) 0.2 Baso % (Auto) 0.3 Neut # (Auto) 7.8 H Lymph # (Auto) 1.6 Mccone # (Auto) 1.0 H Eos # (Auto) 0.0 Baso # (Auto) 0.0 Retic Count pCO2 77 H* pO2 110 H HCO3 26.1 ABG pH 7.21 L ABG Total CO2 33.2 H ABG O2 Saturation 99.3 H ABG O2 Content ABG Base Excess 1.5 ABG Hemoglobin ABG Carboxyhemoglobin POC ABG HHb (Measured) ABG Methemoglobin ABG O2 Capacity [place] Test Yes ABG Potassium 5.3 H A-a O2 Difference 507.0 Hgb O2 Saturation Glucose 262 H Lactate 2.9 H Vent Mode Mechanical Rate FiO2 100.0 Inspiratory BiPAP Expiratory BiPAP Crit Value Called To Dr ashia marte Crit Value Called By Maya durham rt Crit Value Read Back Y Blood Gas Notified Time 1624 Sodium 135.0 Potassium Chloride 108.0 H Carbon Dioxide Anion Gap BUN Creatinine Est GFR ( Amer) Est GFR (Non-Af Amer) POC Glucose (mg/dL) 298 H Random Glucose Lactic Acid Calcium Ferritin Total Bilirubin AST ALT Alkaline Phosphatase Ammonia NT-Pro-B Natriuret Pep Total Protein Albumin Globulin Albumin/Globulin Ratio Vitamin B12 Arterial Blood Potassium 5.3 H 02/09/19 02/09/19 02/09/19 16:34 16:34 16:34 WBC RBC Hgb Hct MCV MCH MCHC RDW Plt Count MPV Neut % (Auto) Lymph % (Auto) Mccone % (Auto) Eos % (Auto) Baso % (Auto) Neut # (Auto) Lymph # (Auto) Mccone # (Auto) Eos # (Auto) Baso # (Auto) Retic Count pCO2 pO2 HCO3 ABG pH ABG Total CO2 ABG O2 Saturation ABG O2 Content ABG Base Excess ABG Hemoglobin ABG Carboxyhemoglobin POC ABG HHb (Measured) ABG Methemoglobin ABG O2 Capacity [place] Test ABG Potassium A-a O2 Difference Hgb O2 Saturation Glucose Lactate Vent Mode Mechanical Rate FiO2 Inspiratory BiPAP Expiratory BiPAP Crit Value Called To Crit Value Called By Crit Value Read Back Blood Gas Notified Time Sodium 134 Potassium 5.1 H Chloride 103 Carbon Dioxide 26 Anion Gap 10 BUN 26 H Creatinine 0.7 L Est GFR ( Amer) > 60 Est GFR (Non-Af Amer) > 60 POC Glucose (mg/dL) Random Glucose 257 H Lactic Acid 2.4 H Calcium 8.4 Ferritin Total Bilirubin AST ALT Alkaline Phosphatase Ammonia 28 D NT-Pro-B Natriuret Pep 295 Total Protein Albumin Globulin Albumin/Globulin Ratio Vitamin B12 Arterial Blood Potassium 02/09/19 02/09/19 02/10/19 19:00 21:24 04:20 WBC 6.6 RBC 2.30 L Hgb 8.9 L Hct 25.8 L MCV 112.3 H MCH 38.7 H MCHC 34.5 RDW 14.2 Plt Count 68 L D MPV Neut % (Auto) Lymph % (Auto) Mccone % (Auto) Eos % (Auto) Baso % (Auto) Neut # (Auto) Lymph # (Auto) Mccone # (Auto) Eos # (Auto) Baso # (Auto) Retic Count pCO2 36 pO2 165 H HCO3 29.2 H ABG pH 7.51 H ABG Total CO2 29.8 H ABG O2 Saturation 100.2 H ABG O2 Content 13.9 L ABG Base Excess 5.4 H ABG Hemoglobin 9.9 L ABG Carboxyhemoglobin 1.4 POC ABG HHb (Measured) -0.2 L ABG Methemoglobin 1.3 ABG O2 Capacity 13.9 L [place] Test Yes ABG Potassium A-a O2 Difference 147.0 Hgb O2 Saturation 97.5 Glucose Lactate Vent Mode Bipap Mechanical Rate 14 FiO2 50.0 Inspiratory BiPAP 15 Expiratory BiPAP 5 Crit Value Called To Crit Value Called By Crit Value Read Back Blood Gas Notified Time Sodium Potassium Chloride Carbon Dioxide Anion Gap BUN Creatinine Est GFR ( Amer) Est GFR (Non-Af Amer) POC Glucose (mg/dL) 286 H Random Glucose Lactic Acid Calcium Ferritin Total Bilirubin AST ALT Alkaline Phosphatase Ammonia NT-Pro-B Natriuret Pep Total Protein Albumin Globulin Albumin/Globulin Ratio Vitamin B12 Arterial Blood Potassium 02/10/19 02/10/19 02/10/19 04:20 04:20 04:40 WBC RBC Hgb Hct MCV MCH MCHC RDW Plt Count MPV Neut % (Auto) Lymph % (Auto) Mccone % (Auto) Eos % (Auto) Baso % (Auto) Neut # (Auto) Lymph # (Auto) Mccone # (Auto) Eos # (Auto) Baso # (Auto) Retic Count 1.5 pCO2 pO2 HCO3 ABG pH ABG Total CO2 ABG O2 Saturation ABG O2 Content ABG Base Excess ABG Hemoglobin ABG Carboxyhemoglobin POC ABG HHb (Measured) ABG Methemoglobin ABG O2 Capacity [place] Test ABG Potassium A-a O2 Difference Hgb O2 Saturation Glucose Lactate Vent Mode Mechanical Rate FiO2 Inspiratory BiPAP Expiratory BiPAP Crit Value Called To Crit Value Called By Crit Value Read Back Blood Gas Notified Time Sodium 135 Potassium 4.1 Chloride 103 Carbon Dioxide 31 H Anion Gap 5 L BUN 24 H Creatinine 0.6 L Est GFR ( Amer) > 60 Est GFR (Non-Af Amer) > 60 POC Glucose (mg/dL) 167 H Random Glucose 152 H Lactic Acid Calcium 8.1 L Ferritin 367.0 Total Bilirubin AST ALT Alkaline Phosphatase Ammonia NT-Pro-B Natriuret Pep Total Protein Albumin Globulin Albumin/Globulin Ratio Vitamin B12 > 1000 H Arterial Blood Potassium 02/10/19 02/10/19 02/10/19 05:11 11:16 16:18 WBC RBC Hgb Hct MCV MCH MCHC RDW Plt Count MPV Neut % (Auto) Lymph % (Auto) Mccone % (Auto) Eos % (Auto) Baso % (Auto) Neut # (Auto) Lymph # (Auto) Mccone # (Auto) Eos # (Auto) Baso # (Auto) Retic Count pCO2 40 pO2 96 HCO3 31.4 H ABG pH 7.51 H ABG Total CO2 33.1 H ABG O2 Saturation 100.1 H ABG O2 Content 12.8 L ABG Base Excess 8.2 H ABG Hemoglobin 9.2 L ABG Carboxyhemoglobin 1.8 H POC ABG HHb (Measured) -0.1 L ABG Methemoglobin 0.8 ABG O2 Capacity 12.8 L [place] Test Yes ABG Potassium A-a O2 Difference 54.0 Hgb O2 Saturation 97.5 Glucose Lactate Vent Mode Mechanical Rate FiO2 28.0 Inspiratory BiPAP Expiratory BiPAP Crit Value Called To Crit Value Called By Crit Value Read Back Blood Gas Notified Time Sodium Potassium Chloride Carbon Dioxide Anion Gap BUN Creatinine Est GFR ( Amer) Est GFR (Non-Af Amer) POC Glucose (mg/dL) 245 H 307 H Random Glucose Lactic Acid Calcium Ferritin Total Bilirubin AST ALT Alkaline Phosphatase Ammonia NT-Pro-B Natriuret Pep Total Protein Albumin Globulin Albumin/Globulin Ratio Vitamin B12 Arterial Blood Potassium 02/10/19 02/11/19 02/11/19 21:40 04:50 04:50 WBC 7.2 RBC 2.24 L Hgb 8.5 L Hct 24.8 L MCV 111.0 H MCH 38.2 H MCHC 34.4 RDW 14.5 Plt Count 66 L MPV Neut % (Auto) Lymph % (Auto) Mccone % (Auto) Eos % (Auto) Baso % (Auto) Neut # (Auto) Lymph # (Auto) Mccone # (Auto) Eos # (Auto) Baso # (Auto) Retic Count pCO2 pO2 HCO3 ABG pH ABG Total CO2 ABG O2 Saturation ABG O2 Content ABG Base Excess ABG Hemoglobin ABG Carboxyhemoglobin POC ABG HHb (Measured) ABG Methemoglobin ABG O2 Capacity [place] Test ABG Potassium A-a O2 Difference Hgb O2 Saturation Glucose Lactate Vent Mode Mechanical Rate FiO2 Inspiratory BiPAP Expiratory BiPAP Crit Value Called To Crit Value Called By Crit Value Read Back Blood Gas Notified Time Sodium 134 Potassium 4.0 Chloride 100 Carbon Dioxide 32 H Anion Gap 6 L BUN 17 Creatinine 0.6 L Est GFR ( Amer) > 60 Est GFR (Non-Af Amer) > 60 POC Glucose (mg/dL) 340 H Random Glucose 150 H Lactic Acid Calcium 7.8 L Ferritin Total Bilirubin AST ALT Alkaline Phosphatase Ammonia NT-Pro-B Natriuret Pep Total Protein Albumin Globulin Albumin/Globulin Ratio Vitamin B12 Arterial Blood Potassium 02/11/19 02/11/19 04:57 11:24 WBC RBC Hgb Hct MCV MCH MCHC RDW Plt Count MPV Neut % (Auto) Lymph % (Auto) Mccone % (Auto) Eos % (Auto) Baso % (Auto) Neut # (Auto) Lymph # (Auto) Mccone # (Auto) Eos # (Auto) Baso # (Auto) Retic Count pCO2 pO2 HCO3 ABG pH ABG Total CO2 ABG O2 Saturation ABG O2 Content ABG Base Excess ABG Hemoglobin ABG Carboxyhemoglobin POC ABG HHb (Measured) ABG Methemoglobin ABG O2 Capacity [place] Test ABG Potassium A-a O2 Difference Hgb O2 Saturation Glucose Lactate Vent Mode Mechanical Rate FiO2 Inspiratory BiPAP Expiratory BiPAP Crit Value Called To Crit Value Called By Crit Value Read Back Blood Gas Notified Time Sodium Potassium Chloride Carbon Dioxide Anion Gap BUN Creatinine Est GFR ( Amer) Est GFR (Non-Af Amer) POC Glucose (mg/dL) 175 H 332 H Random Glucose Lactic Acid Calcium Ferritin Total Bilirubin AST ALT Alkaline Phosphatase Ammonia NT-Pro-B Natriuret Pep Total Protein Albumin Globulin Albumin/Globulin Ratio Vitamin B12 Arterial Blood Potassium Microbiology 02/07/19 23:00 Blood-Venous Blood Culture - Preliminary NO GROWTH AFTER 3 DAYS Microbiology 01/18/19 17:39 Blood-Venous Blood Culture - Final 01/18/19 17:39 Blood-Venous Gram Stain - Final NO GROWTH AFTER 5 DAYS TEST NOT PERFORMED 01/18/19 12:20 Blood-Venous Blood Culture - Final 01/18/19 12:20 Blood-Venous Gram Stain - Final NO GROWTH AFTER 5 DAYS TEST NOT PERFORMED 01/17/19 18:20 Sputum Gram Stain - Final 01/17/19 18:20 Sputum Sputum Culture - Final Pseudomonas Aeruginosa 01/15/19 18:40 Blood Blood Culture - Final 01/15/19 18:40 Blood Gram Stain - Final NO GROWTH AFTER 5 DAYS TEST NOT PERFORMED 01/15/19 17:45 Blood Blood Culture - Final 01/15/19 17:45 Blood Gram Stain - Final NO GROWTH AFTER 5 DAYS TEST NOT PERFORMED 01/10/19 21:25 Trachasp Gram Stain - Final 01/10/19 21:25 Trachasp Sputum Culture - Final Klebsiella Oxytoca Pseudomonas Aeruginosa Assessment and Plan (1) Aspiration pneumonitis Status: Acute (2) Cirrhosis of liver Status: Acute (3) Hepatocellular carcinoma Status: Acute - Assessment and Plan (Free Text) Assessment: A/P- 69 year old male with h/o ETOH abuse, liver cirrhosis, liver cancer undergoing chemo who was admitted originally with change in MS and was intubated and was in ICU for long time and was treted for pseudomonas and k.oxytoca in sputum cx with 11 days of meropnem was extubated and cliniclaly much betetr and was transferred to Acute rehab and then yesterday he develops sob and was taken to ED and now is admitted to tele floor. s/p [employer] for sob and was transferred to ICU over the weekend. He is clinically much better now. aspiration pneumonitis is very likely since pt. had recently started to eat and had intermittent days of lethargy secondary to his cirhosis . currently he is AAO X 3 states his breathing sis better compared to yesterday. he is ruled out for PE as per CT report. afebrile no leukocytois minimal left shift. blood cx- all negative to date previous spuum cx- pseudomonas and K.Oxytoca ( was treated with meropnem) . Plan- check sputum cx. placed back on meropnem ro cocver for aspiration pneumonia day #3 ( total day #14). monitor aspiration precautions. speech/swallow eval. all labs and imaging and relevant chart notes were reviewed. Critical Care time spent 40 minutes.
[2019-02-11 18:46] LABS: FOLATE 12.2 ng/mL
[2019-02-12] MEDS: Meropenem 1 GM in Sodium Chloride 0.9% 100 ML IVPB SCH ×3 (00:44→16:52)
[2019-02-12 05:19] LABS: MEAN CELL VOLUME 111.3 fl (80.0-94.0); MEAN CORPUSCULAR HEMOGLOBIN 38.4 pg (27.0-31.0); MEAN CORPUSCULAR HGB CONC 34.5 g/dL (33.0-37.0); RBC 2.35 Mil/uL (4.40-5.90); RED CELL DISTRIBUTION WIDTH 14.6 % (11.5-14.5); WHITE BLOOD COUNT 8.4 K/uL (4.8-10.8)
[2019-02-12 05:33] LABS: BLOOD UREA NITROGEN 16 mg/dl (9-20); CALCIUM 8.4 mg/dL (8.4-10.2); GFR NON-AFRICAN AMERICAN > 60
[2019-02-12] MEDS: Levothyroxine 50 MCG TAB PO SCH (05:59)
[2019-02-12] MEDS: Insulin Lispro (humaLOG) 100 Units/ml Inj SC SCH ×3 (06:35→16:49)
[2019-02-12] MEDS: Albuterol-Ipratrop 3 mg / 0.5 (3 ml) UD INH PRN ×2 (08:03→19:24)
[2019-02-12] MEDS: Acetylcysteine 20% Inhal Soln (4ml) INH SCH ×2 (08:03→19:25)
--- NOTE | 2019-02-12 08:48 | CP.PCM.PN ---
Subjective - Date & Time of Evaluation Date of Evaluation: 02/12/19 Time of Evaluation: 08:49 - Subjective Subjective: FEELS BETTER NO APPARENT RESPIRATORY DISTRESS VSS COUGH LESS Objective - Vital Signs/Intake and Output Vital Signs (last 24 hours): Temp Pulse Resp BP Pulse Ox 98.2 F 62 15 123/65 100 02/12/19 08:00 02/12/19 08:00 02/12/19 08:00 02/12/19 08:00 02/12/19 08:00 Intake and Output: 02/12/19 02/12/19 06:59 18:59 Intake Total 340 Output Total 1550 Balance -1210 - Medications Medications: Current Medications Acetaminophen (Tylenol 650mg/20.3ml Solution Ud) 650 mg PO Q6 PRN PRN Reason: Temperature Acetylcysteine (Acetylcysteine 20%) 2 ml INH RBID [facility] Last Admin: 02/12/19 08:03 Dose: 2 ml Albuterol/Ipratropium (Duoneb 3 Mg/0.5 Mg (3 Ml) Ud) 3 ml INH RQ4 PRN PRN Reason: Shortness of Breath Last Admin: 02/12/19 08:03 Dose: 3 ml Benzonatate (Tessalon Perles) 100 mg PO Q8 PRN PRN Reason: Cough Carvedilol (Coreg) 6.25 mg PO Q12 [facility] Last Admin: 02/11/19 20:23 Dose: 6.25 mg Dextrose (Dextrose 50% Inj) 0 ml IV STAT PRN; Protocol PRN Reason: Hypoglycemia Protocol Dextrose (Glutose 15) 15 gm PO ONCE PRN PRN Reason: Hypoglycemia Dextrose (Glutose 15) 0 gm PO ONCE PRN; Protocol PRN Reason: Hypoglycemia Protocol Diphenhydramine HCl (Benadryl) 50 mg IVP Q6 PRN PRN Reason: Agitation Folic Acid (Folic Acid) 1 mg PO DAILY [facility] Last Admin: 02/11/19 08:44 Dose: 1 mg Furosemide (Lasix) 20 mg PO DAILY [facility] Last Admin: 02/11/19 08:47 Dose: 20 mg Haloperidol Lactate (Haldol) 5 mg IM Q6 PRN PRN Reason: Agitation Meropenem 1 gm/ Sodium (Chloride) 100 mls @ 100 mls/hr IVPB Q8 [facility]; Protocol Last Admin: 02/12/19 00:44 Dose: 100 mls/hr Insulin Human Lispro (Humalog) 0 units SC ACHS [facility]; Protocol Last Admin: 02/12/19 06:35 Dose: 2 units Lactulose (Enulose) 20 gm PO TID [facility] Last Admin: 02/11/19 17:23 Dose: 20 gm Levothyroxine Sodium (Synthroid) 50 mcg PO DAILY@0630 [facility] Last Admin: 02/12/19 05:59 Dose: 50 mcg Pantoprazole Sodium (Protonix Susp) 40 mg PO DAILY [facility] Last Admin: 02/11/19 08:49 Dose: 40 mg Prednisone (Prednisone Tab) 15 mg PO DAILY [facility] Stop: 02/14/19 23:59 Last Admin: 02/11/19 08:48 Dose: 15 mg Prednisone (Prednisone Tab) 10 mg PO DAILY [facility] Stop: 02/17/19 23:59 Prednisone (Prednisone Tab) 5 mg PO DAILY [facility] Stop: 02/21/19 23:59 Promethazine HCl/Dextromethorphan (Phenergan Dm Syrup) 10 ml PO Q6 PRN PRN Reason: Cough Rifaximin (Xifaxan) 550 mg PO BID [facility]; Protocol Last Admin: 02/11/19 17:25 Dose: 550 mg Spironolactone (Aldactone) 50 mg PO DAILY [facility] Last Admin: 02/11/19 08:42 Dose: 50 mg Tamsulosin HCl (Flomax) 0.4 mg PO DAILY [facility] Last Admin: 02/11/19 08:43 Dose: 0.4 mg Thiamine HCl (Vitamin B1 Tab) 100 mg PO DAILY [facility] Last Admin: 02/11/19 08:50 Dose: 100 mg - Labs Labs: 02/12/19 04:38 02/12/19 04:38 PT 17.7 Seconds (9.8-13.1) H 02/07/19 23:00 INR 1.6 02/07/19 23:00 APTT 26.2 Seconds (25.6-37.1) 02/07/19 23:00 - Constitutional Appears: No Acute Distress - Head Exam Head Exam: ATRAUMATIC, NORMAL INSPECTION, NORMOCEPHALIC - Eye Exam Eye Exam: EOMI, Normal appearance, PERRL Pupil Exam: NORMAL ACCOMODATION, PERRL - ENT Exam ENT Exam: Mucous Membranes Moist, Normal Exam - Neck Exam Neck Exam: Full ROM, Normal Inspection. absent: Lymphadenopathy - Respiratory Exam Respiratory Exam: Clear to Ausculation Bilateral, Prolonged Expiratory Phase, NORMAL BREATHING PATTERN - Cardiovascular Exam Cardiovascular Exam: REGULAR RHYTHM, +S1, +S2. absent: Murmur - GI/Abdominal Exam GI & Abdominal Exam: Soft, Normal Bowel Sounds. absent: Tenderness - Rectal Exam Rectal Exam: NORMAL INSPECTION - Extremities Exam Extremities Exam: Full ROM, Normal Capillary Refill, Normal Inspection. absent: Joint Swelling, Pedal Edema - Back Exam Back Exam: NORMAL INSPECTION - Neurological Exam Neurological Exam: Abnormal Gait, Alert, Awake, CN II-XII Intact, Oriented x3 - Psychiatric Exam Psychiatric exam: Normal Affect, Normal Mood - Skin Skin Exam: Dry, Intact, Normal Color, Warm Assessment and Plan - Assessment and Plan (Free Text) Assessment: ASPIRATION PNEUMONIA HX OF LIVER CANCER AND CHRONIC ALCOHOLISM Plan: OK TO TRANSFER OUT OF ICU CONTINUE ANTIBIOTIC RX AND ASPIRATION PRECAUTIONS
[2019-02-12] MEDS: Pantoprazole 40 mg Susp UD PO SCH (09:38)
--- NOTE | 2019-02-12 14:15 | PN ---
DATE: 02/12/2019 CRITICAL CARE PROGRESS NOTE LOCATION: The patient in ICU bed 427. Time spent 25 minutes. The patient is seen and evaluated at the bedside. Past medical, surgical, family, social history reviewed. Case discussed in multidisciplinary ICU rounds this morning. SUBJECTIVE: A 69-year-old male with medical history significant for hypertension, hyper lipidemia, diabetes, gastritis, chronic kidney disease, liver cirrhosis, hepatic encephalopathy and liver malignancy status post embolic treatment admitted with acute shortness of breath. Shortness of breath with CO2 retention, placed on BiPAP, improved off BiPAP on oxygen supplement overnight afebrile and normotensive. Telemetry sinus rhythm, tolerating p.o. feeds. No signs or symptoms of aspiration. This morning, alert, awake, follows commands, appropriate. PHYSICAL EXAMINATION: VITAL SIGNS: Temperature 98.2, heart rate 62-77 regular, blood pressure 123/65, respiratory rate of 15-21, saturation 100% oxygen supplement 2 liters nasal cannula. Intake 1500, output 2700 and negative balance of 1200, weight 198 pounds. HEENT: Head, Eyes, Ears, Nose and Throat: Pupils are reactive. Sclerae muddy. NECK: Supple. Trachea central. CHEST: Bilateral breath sounds clear to auscultation. HEART: Rhythm regular. S1, S2 normal intensity. No S3, S4 gallop. No audible murmur. ABDOMEN: Bowel sounds present. Soft. Liver and spleen not palpable. Bladder not distended. EXTREMITIES: Dependent edema. DP palpable. NEUROLOGIC: Alert, awake, follows commands appropriate. CURRENT MEDICATIONS: Tylenol 650 every 6 hours p.r.n., albuterol/Atrovent inhalation 3 mL every 4 hours p.r.n., acetylcysteine 20% 2 mL by inhalation twice daily, Tessalon Perles 100 mg p.o. every 8 hours p.r.n., Coreg 6.25 mg every 12 hours, dextrose 50% p.r.n. to prevent hypoglycemia, Benadryl 50 mg IV every 6 hours p.r.n., folic acid 1 mg daily, furosemide 20 mg p.o. daily, Haldol 5 mg IM every 6 hours p.r.n. for agitation, Accu-Chek with regular insulin coverage, lactulose 20 g p.o. three times daily, Synthroid 50 mcg p.o. daily, meropenem 1 g IV every 8 hours, Protonix 40 p.o. daily; prednisone 15 mg p.o. daily, 10 mg p.o. daily, 02/15, 5 mg p.o. daily from 02/18; promethazine syrup; rifaximin 550 mg b.i.d.; Aldactone 50 mg p.o. daily; Flomax 0.4 mg daily; thiamine 100 mg p.o. daily. IMPRESSION: Aspiration pneumonia, on antibiotic meropenem as per ID; hepatic encephalopathy, improved on lactulose, rifaximin, Aldactone, liver cirrhosis stable, coagulopathy stable, history of hepatocellular carcinoma, keep head of bed 30 degrees up, monitor for aspiration, out of bed to chair as tolerated. OT/PT evaluation requested, stable to transfer to medical surgical floor. Stephon Peters MD
--- NOTE | 2019-02-12 21:40 | CP.PCM.PN ---
Subjective - Date & Time of Evaluation Date of Evaluation: 02/11/19 Time of Evaluation: 19:00 - Subjective Subjective: No complaints. Objective - Vital Signs/Intake and Output Vital Signs (last 24 hours): Temp Pulse Resp BP Pulse Ox 98.1 F 76 20 109/50 L 98 02/12/19 16:00 02/12/19 21:09 02/12/19 16:00 02/12/19 21:09 02/12/19 16:00 - Medications Medications: Current Medications Acetaminophen (Tylenol 650mg/20.3ml Solution Ud) 650 mg PO Q6 PRN PRN Reason: Temperature Acetylcysteine (Acetylcysteine 20%) 2 ml INH RBID [facility] Last Admin: 02/12/19 19:25 Dose: 2 ml Albuterol/Ipratropium (Duoneb 3 Mg/0.5 Mg (3 Ml) Ud) 3 ml INH RQ4 PRN PRN Reason: Shortness of Breath Last Admin: 02/12/19 19:24 Dose: 3 ml Benzonatate (Tessalon Perles) 100 mg PO Q8 PRN PRN Reason: Cough Carvedilol (Coreg) 6.25 mg PO Q12 [facility] Last Admin: 02/12/19 21:09 Dose: Not Given Dextrose (Dextrose 50% Inj) 0 ml IV STAT PRN; Protocol PRN Reason: Hypoglycemia Protocol Dextrose (Glutose 15) 15 gm PO ONCE PRN PRN Reason: Hypoglycemia Dextrose (Glutose 15) 0 gm PO ONCE PRN; Protocol PRN Reason: Hypoglycemia Protocol Diphenhydramine HCl (Benadryl) 50 mg IVP Q6 PRN PRN Reason: Agitation Folic Acid (Folic Acid) 1 mg PO DAILY [facility] Last Admin: 02/12/19 09:27 Dose: 1 mg Furosemide (Lasix) 20 mg PO DAILY [facility] Last Admin: 02/12/19 09:28 Dose: 20 mg Haloperidol Lactate (Haldol) 5 mg IM Q6 PRN PRN Reason: Agitation Meropenem 1 gm/ Sodium (Chloride) 100 mls @ 100 mls/hr IVPB Q8 [facility]; Protocol Last Admin: 02/12/19 16:52 Dose: 100 mls/hr Insulin Human Regular (Humulin R) 0 units SC ACHS [facility]; Protocol Lactulose (Enulose) 20 gm PO TID [facility] Last Admin: 02/12/19 16:49 Dose: 20 gm Levothyroxine Sodium (Synthroid) 50 mcg PO DAILY@0630 [facility] Last Admin: 02/12/19 05:59 Dose: 50 mcg Pantoprazole Sodium (Protonix Susp) 40 mg PO DAILY [facility] Last Admin: 02/12/19 09:38 Dose: 40 mg Prednisone (Prednisone Tab) 15 mg PO DAILY [facility] Stop: 02/14/19 23:59 Last Admin: 02/12/19 09:37 Dose: 15 mg Prednisone (Prednisone Tab) 10 mg PO DAILY [facility] Stop: 02/17/19 23:59 Prednisone (Prednisone Tab) 5 mg PO DAILY [facility] Stop: 02/21/19 23:59 Promethazine HCl/Dextromethorphan (Phenergan Dm Syrup) 10 ml PO Q6 PRN PRN Reason: Cough Rifaximin (Xifaxan) 550 mg PO BID [facility]; Protocol Last Admin: 02/12/19 16:50 Dose: 550 mg Spironolactone (Aldactone) 50 mg PO DAILY [facility] Last Admin: 02/12/19 09:26 Dose: 50 mg Tamsulosin HCl (Flomax) 0.4 mg PO DAILY [facility] Last Admin: 02/12/19 09:27 Dose: 0.4 mg Thiamine HCl (Vitamin B1 Tab) 100 mg PO DAILY [facility] Last Admin: 02/12/19 09:38 Dose: 100 mg - Labs Labs: 02/12/19 04:38 02/12/19 04:38 PT 17.7 Seconds (9.8-13.1) H 02/07/19 23:00 INR 1.6 02/07/19 23:00 APTT 26.2 Seconds (25.6-37.1) 02/07/19 23:00 - Head Exam Head Exam: ATRAUMATIC - Eye Exam Eye Exam: Normal appearance - ENT Exam ENT Exam: Mucous Membranes Dry - Respiratory Exam Respiratory Exam: Decreased Breath Sounds - Cardiovascular Exam Cardiovascular Exam: +S1, +S2 - GI/Abdominal Exam GI & Abdominal Exam: Normal Bowel Sounds Assessment and Plan (1) Anemia Assessment & Plan: anemia of chronic disease Status: Acute (2) Thrombocytopenia Assessment & Plan: secondary to liver disease and splenic sequestration Status: Acute (3) Coagulopathy Assessment & Plan: liver disease Status: Acute (4) Hepatocellular carcinoma Assessment & Plan: outpatient treatment Status: Acute
[2019-02-12] MEDS: Insulin Regular 100 units/ml SC SCH (21:42)
--- NOTE | 2019-02-12 21:42 | CP.PCM.PN ---
Subjective - Date & Time of Evaluation Date of Evaluation: 02/12/19 Time of Evaluation: 20:00 - Subjective Subjective: No complaints. Objective - Vital Signs/Intake and Output Vital Signs (last 24 hours): Temp Pulse Resp BP Pulse Ox 98.1 F 76 20 109/50 L 98 02/12/19 16:00 02/12/19 21:09 02/12/19 16:00 02/12/19 21:09 02/12/19 16:00 - Medications Medications: Current Medications Acetaminophen (Tylenol 650mg/20.3ml Solution Ud) 650 mg PO Q6 PRN PRN Reason: Temperature Acetylcysteine (Acetylcysteine 20%) 2 ml INH RBID [facility] Last Admin: 02/12/19 19:25 Dose: 2 ml Albuterol/Ipratropium (Duoneb 3 Mg/0.5 Mg (3 Ml) Ud) 3 ml INH RQ4 PRN PRN Reason: Shortness of Breath Last Admin: 02/12/19 19:24 Dose: 3 ml Benzonatate (Tessalon Perles) 100 mg PO Q8 PRN PRN Reason: Cough Carvedilol (Coreg) 6.25 mg PO Q12 [facility] Last Admin: 02/12/19 21:09 Dose: Not Given Dextrose (Dextrose 50% Inj) 0 ml IV STAT PRN; Protocol PRN Reason: Hypoglycemia Protocol Dextrose (Glutose 15) 15 gm PO ONCE PRN PRN Reason: Hypoglycemia Dextrose (Glutose 15) 0 gm PO ONCE PRN; Protocol PRN Reason: Hypoglycemia Protocol Diphenhydramine HCl (Benadryl) 50 mg IVP Q6 PRN PRN Reason: Agitation Folic Acid (Folic Acid) 1 mg PO DAILY [facility] Last Admin: 02/12/19 09:27 Dose: 1 mg Furosemide (Lasix) 20 mg PO DAILY [facility] Last Admin: 02/12/19 09:28 Dose: 20 mg Haloperidol Lactate (Haldol) 5 mg IM Q6 PRN PRN Reason: Agitation Meropenem 1 gm/ Sodium (Chloride) 100 mls @ 100 mls/hr IVPB Q8 [facility]; Protocol Last Admin: 02/12/19 16:52 Dose: 100 mls/hr Insulin Human Regular (Humulin R) 0 units SC ACHS [facility]; Protocol Lactulose (Enulose) 20 gm PO TID [facility] Last Admin: 02/12/19 16:49 Dose: 20 gm Levothyroxine Sodium (Synthroid) 50 mcg PO DAILY@0630 [facility] Last Admin: 02/12/19 05:59 Dose: 50 mcg Pantoprazole Sodium (Protonix Susp) 40 mg PO DAILY [facility] Last Admin: 02/12/19 09:38 Dose: 40 mg Prednisone (Prednisone Tab) 15 mg PO DAILY [facility] Stop: 02/14/19 23:59 Last Admin: 02/12/19 09:37 Dose: 15 mg Prednisone (Prednisone Tab) 10 mg PO DAILY [facility] Stop: 02/17/19 23:59 Prednisone (Prednisone Tab) 5 mg PO DAILY [facility] Stop: 02/21/19 23:59 Promethazine HCl/Dextromethorphan (Phenergan Dm Syrup) 10 ml PO Q6 PRN PRN Reason: Cough Rifaximin (Xifaxan) 550 mg PO BID [facility]; Protocol Last Admin: 02/12/19 16:50 Dose: 550 mg Spironolactone (Aldactone) 50 mg PO DAILY [facility] Last Admin: 02/12/19 09:26 Dose: 50 mg Tamsulosin HCl (Flomax) 0.4 mg PO DAILY [facility] Last Admin: 02/12/19 09:27 Dose: 0.4 mg Thiamine HCl (Vitamin B1 Tab) 100 mg PO DAILY [facility] Last Admin: 02/12/19 09:38 Dose: 100 mg - Labs Labs: 02/12/19 04:38 02/12/19 04:38 PT 17.7 Seconds (9.8-13.1) H 02/07/19 23:00 INR 1.6 02/07/19 23:00 APTT 26.2 Seconds (25.6-37.1) 02/07/19 23:00 - Head Exam Head Exam: ATRAUMATIC - Eye Exam Eye Exam: Normal appearance - ENT Exam ENT Exam: Mucous Membranes Dry - Respiratory Exam Respiratory Exam: Decreased Breath Sounds - Cardiovascular Exam Cardiovascular Exam: +S1, +S2 - GI/Abdominal Exam GI & Abdominal Exam: Normal Bowel Sounds Assessment and Plan (1) Anemia Assessment & Plan: anemia of chronic disease Status: Acute (2) Thrombocytopenia Assessment & Plan: secondary to liver disease and splenic sequestration Status: Acute (3) Coagulopathy Assessment & Plan: liver disease Status: Acute (4) Hepatocellular carcinoma Assessment & Plan: outpatient treatment Status: Acute
--- NOTE | 2019-02-13 00:12 | CP.PCM.PN ---
Subjective - Date & Time of Evaluation Date of Evaluation: 02/11/19 Objective - Vital Signs/Intake and Output Vital Signs (last 24 hours): Temp Pulse Resp BP Pulse Ox 98.1 F 76 20 109/50 L 98 02/12/19 16:00 02/12/19 21:09 02/12/19 16:00 02/12/19 21:09 02/12/19 16:00 Intake and Output: 02/12/19 02/13/19 18:59 06:59 Intake Total 0 Balance 0 - Medications Medications: Current Medications Acetaminophen (Tylenol 650mg/20.3ml Solution Ud) 650 mg PO Q6 PRN PRN Reason: Temperature Acetylcysteine (Acetylcysteine 20%) 2 ml INH RBID [facility] Last Admin: 02/12/19 19:25 Dose: 2 ml Albuterol/Ipratropium (Duoneb 3 Mg/0.5 Mg (3 Ml) Ud) 3 ml INH RQ4 PRN PRN Reason: Shortness of Breath Last Admin: 02/12/19 19:24 Dose: 3 ml Benzonatate (Tessalon Perles) 100 mg PO Q8 PRN PRN Reason: Cough Carvedilol (Coreg) 6.25 mg PO Q12 [facility] Last Admin: 02/12/19 21:09 Dose: Not Given Dextrose (Dextrose 50% Inj) 0 ml IV STAT PRN; Protocol PRN Reason: Hypoglycemia Protocol Dextrose (Glutose 15) 15 gm PO ONCE PRN PRN Reason: Hypoglycemia Dextrose (Glutose 15) 0 gm PO ONCE PRN; Protocol PRN Reason: Hypoglycemia Protocol Diphenhydramine HCl (Benadryl) 50 mg IVP Q6 PRN PRN Reason: Agitation Folic Acid (Folic Acid) 1 mg PO DAILY [facility] Last Admin: 02/12/19 09:27 Dose: 1 mg Furosemide (Lasix) 20 mg PO DAILY [facility] Last Admin: 02/12/19 09:28 Dose: 20 mg Haloperidol Lactate (Haldol) 5 mg IM Q6 PRN PRN Reason: Agitation Meropenem 1 gm/ Sodium (Chloride) 100 mls @ 100 mls/hr IVPB Q8 [facility]; Protocol Last Admin: 02/12/19 16:52 Dose: 100 mls/hr Insulin Human Regular (Humulin R) 0 units SC ACHS [facility]; Protocol Last Admin: 02/12/19 21:42 Dose: 2 units Lactulose (Enulose) 20 gm PO TID [facility] Last Admin: 02/12/19 16:49 Dose: 20 gm Levothyroxine Sodium (Synthroid) 50 mcg PO DAILY@0630 [facility] Last Admin: 02/12/19 05:59 Dose: 50 mcg Pantoprazole Sodium (Protonix Susp) 40 mg PO DAILY [facility] Last Admin: 02/12/19 09:38 Dose: 40 mg Prednisone (Prednisone Tab) 15 mg PO DAILY [facility] Stop: 02/14/19 23:59 Last Admin: 02/12/19 09:37 Dose: 15 mg Prednisone (Prednisone Tab) 10 mg PO DAILY [facility] Stop: 02/17/19 23:59 Prednisone (Prednisone Tab) 5 mg PO DAILY [facility] Stop: 02/21/19 23:59 Promethazine HCl/Dextromethorphan (Phenergan Dm Syrup) 10 ml PO Q6 PRN PRN Reason: Cough Rifaximin (Xifaxan) 550 mg PO BID [facility]; Protocol Last Admin: 02/12/19 16:50 Dose: 550 mg Spironolactone (Aldactone) 50 mg PO DAILY [facility] Last Admin: 02/12/19 09:26 Dose: 50 mg Tamsulosin HCl (Flomax) 0.4 mg PO DAILY [facility] Last Admin: 02/12/19 09:27 Dose: 0.4 mg Thiamine HCl (Vitamin B1 Tab) 100 mg PO DAILY [facility] Last Admin: 02/12/19 09:38 Dose: 100 mg - Labs Labs: 02/12/19 04:38 02/12/19 04:38 PT 17.7 Seconds (9.8-13.1) H 02/07/19 23:00 INR 1.6 02/07/19 23:00 APTT 26.2 Seconds (25.6-37.1) 02/07/19 23:00
--- NOTE | 2019-02-13 00:22 | CP.PCM.PN ---
Subjective - Date & Time of Evaluation Date of Evaluation: 02/12/19 Objective - Vital Signs/Intake and Output Vital Signs (last 24 hours): Temp Pulse Resp BP Pulse Ox 98.1 F 76 20 109/50 L 98 02/12/19 16:00 02/12/19 21:09 02/12/19 16:00 02/12/19 21:09 02/12/19 16:00 Intake and Output: 02/12/19 02/13/19 18:59 06:59 Intake Total 0 Balance 0 - Medications Medications: Current Medications Acetaminophen (Tylenol 650mg/20.3ml Solution Ud) 650 mg PO Q6 PRN PRN Reason: Temperature Acetylcysteine (Acetylcysteine 20%) 2 ml INH RBID [facility] Last Admin: 02/12/19 19:25 Dose: 2 ml Albuterol/Ipratropium (Duoneb 3 Mg/0.5 Mg (3 Ml) Ud) 3 ml INH RQ4 PRN PRN Reason: Shortness of Breath Last Admin: 02/12/19 19:24 Dose: 3 ml Benzonatate (Tessalon Perles) 100 mg PO Q8 PRN PRN Reason: Cough Carvedilol (Coreg) 6.25 mg PO Q12 [facility] Last Admin: 02/12/19 21:09 Dose: Not Given Dextrose (Dextrose 50% Inj) 0 ml IV STAT PRN; Protocol PRN Reason: Hypoglycemia Protocol Dextrose (Glutose 15) 15 gm PO ONCE PRN PRN Reason: Hypoglycemia Dextrose (Glutose 15) 0 gm PO ONCE PRN; Protocol PRN Reason: Hypoglycemia Protocol Diphenhydramine HCl (Benadryl) 50 mg IVP Q6 PRN PRN Reason: Agitation Folic Acid (Folic Acid) 1 mg PO DAILY [facility] Last Admin: 02/12/19 09:27 Dose: 1 mg Furosemide (Lasix) 20 mg PO DAILY [facility] Last Admin: 02/12/19 09:28 Dose: 20 mg Haloperidol Lactate (Haldol) 5 mg IM Q6 PRN PRN Reason: Agitation Meropenem 1 gm/ Sodium (Chloride) 100 mls @ 100 mls/hr IVPB Q8 [facility]; Protocol Last Admin: 02/12/19 16:52 Dose: 100 mls/hr Insulin Human Regular (Humulin R) 0 units SC ACHS [facility]; Protocol Last Admin: 02/12/19 21:42 Dose: 2 units Lactulose (Enulose) 20 gm PO TID [facility] Last Admin: 02/12/19 16:49 Dose: 20 gm Levothyroxine Sodium (Synthroid) 50 mcg PO DAILY@0630 [facility] Last Admin: 02/12/19 05:59 Dose: 50 mcg Pantoprazole Sodium (Protonix Susp) 40 mg PO DAILY [facility] Last Admin: 02/12/19 09:38 Dose: 40 mg Prednisone (Prednisone Tab) 15 mg PO DAILY [facility] Stop: 02/14/19 23:59 Last Admin: 02/12/19 09:37 Dose: 15 mg Prednisone (Prednisone Tab) 10 mg PO DAILY [facility] Stop: 02/17/19 23:59 Prednisone (Prednisone Tab) 5 mg PO DAILY [facility] Stop: 02/21/19 23:59 Promethazine HCl/Dextromethorphan (Phenergan Dm Syrup) 10 ml PO Q6 PRN PRN Reason: Cough Rifaximin (Xifaxan) 550 mg PO BID [facility]; Protocol Last Admin: 02/12/19 16:50 Dose: 550 mg Spironolactone (Aldactone) 50 mg PO DAILY [facility] Last Admin: 02/12/19 09:26 Dose: 50 mg Tamsulosin HCl (Flomax) 0.4 mg PO DAILY [facility] Last Admin: 02/12/19 09:27 Dose: 0.4 mg Thiamine HCl (Vitamin B1 Tab) 100 mg PO DAILY [facility] Last Admin: 02/12/19 09:38 Dose: 100 mg - Labs Labs: 02/12/19 04:38 02/12/19 04:38 PT 17.7 Seconds (9.8-13.1) H 02/07/19 23:00 INR 1.6 02/07/19 23:00 APTT 26.2 Seconds (25.6-37.1) 02/07/19 23:00
[2019-02-13] MEDS: Meropenem 1 GM in Sodium Chloride 0.9% 100 ML IVPB SCH ×3 (00:28→16:25)
[2019-02-13 05:32] LABS: BASO % 0.1 % (0.0-2.0); EOS # 0.4 K/uL (0.0-0.7); EOS % 4.1 % (0.0-4.0); LYMPH # 1.8 K/uL (1.0-4.3); LYMPH % 17.6 % (20.0-40.0); MEAN CELL VOLUME 111.7 fl (80.0-94.0); MEAN CORPUSCULAR HEMOGLOBIN 38.8 pg (27.0-31.0); MEAN CORPUSCULAR HGB CONC 34.8 g/dL (33.0-37.0); MEAN PLATELET VOLUME 9.8 fl (7.2-11.7); MONO # 1.1 K/uL (0.0-0.8); MONO % 10.6 % (0.0-10.0); NEUT # 6.9 K/uL (1.8-7.0); NEUT % 67.6 % (50.0-75.0); NRBC % 0.1 % (0.0-0.0); RBC 2.32 Mil/uL (4.40-5.90); WHITE BLOOD COUNT 10.1 K/uL (4.8-10.8)
[2019-02-13 05:47] LABS: BLOOD UREA NITROGEN 13 mg/dl (9-20); CALCIUM 8.3 mg/dL (8.4-10.2); GFR NON-AFRICAN AMERICAN > 60
[2019-02-13] MEDS: Levothyroxine 50 MCG TAB PO SCH (05:57)
[2019-02-13] MEDS: Insulin Regular 100 units/ml SC SCH ×4 (06:34→21:13)
[2019-02-13] MEDS: Albuterol-Ipratrop 3 mg / 0.5 (3 ml) UD INH PRN ×2 (07:37→19:08)
[2019-02-13] MEDS: Acetylcysteine 20% Inhal Soln (4ml) INH SCH ×2 (07:37→19:08)
[2019-02-13] MEDS: Pantoprazole 40 mg Susp UD PO SCH (08:26)
--- NOTE | 2019-02-13 08:34 | CP.PCM.PN ---
Subjective - Date & Time of Evaluation Date of Evaluation: 02/13/19 Time of Evaluation: 08:34 - Subjective Subjective: NO NEW COMPLAINTS OR CLINICAL FINDINGS SOB IMPROVED Objective - Vital Signs/Intake and Output Vital Signs (last 24 hours): Temp Pulse Resp BP Pulse Ox 98.2 F 70 17 82/39 L 97 02/13/19 08:18 02/13/19 08:18 02/13/19 08:18 02/13/19 08:18 02/13/19 08:18 Intake and Output: 02/13/19 02/13/19 06:59 18:59 Intake Total 460 Output Total 1760 Balance -1300 - Medications Medications: Current Medications Acetaminophen (Tylenol 650mg/20.3ml Solution Ud) 650 mg PO Q6 PRN PRN Reason: Temperature Acetylcysteine (Acetylcysteine 20%) 2 ml INH RBID [facility] Last Admin: 02/13/19 07:37 Dose: 2 ml Albuterol/Ipratropium (Duoneb 3 Mg/0.5 Mg (3 Ml) Ud) 3 ml INH RQ4 PRN PRN Reason: Shortness of Breath Last Admin: 02/13/19 07:37 Dose: 3 ml Benzonatate (Tessalon Perles) 100 mg PO Q8 PRN PRN Reason: Cough Carvedilol (Coreg) 6.25 mg PO Q12 [facility] Last Admin: 02/12/19 21:09 Dose: Not Given Dextrose (Dextrose 50% Inj) 0 ml IV STAT PRN; Protocol PRN Reason: Hypoglycemia Protocol Dextrose (Glutose 15) 15 gm PO ONCE PRN PRN Reason: Hypoglycemia Dextrose (Glutose 15) 0 gm PO ONCE PRN; Protocol PRN Reason: Hypoglycemia Protocol Diphenhydramine HCl (Benadryl) 50 mg IVP Q6 PRN PRN Reason: Agitation Folic Acid (Folic Acid) 1 mg PO DAILY [facility] Last Admin: 02/13/19 08:25 Dose: 1 mg Furosemide (Lasix) 20 mg PO DAILY [facility] Last Admin: 02/12/19 09:28 Dose: 20 mg Haloperidol Lactate (Haldol) 5 mg IM Q6 PRN PRN Reason: Agitation Meropenem 1 gm/ Sodium (Chloride) 100 mls @ 100 mls/hr IVPB Q8 [facility]; Protocol Last Admin: 02/13/19 08:25 Dose: 100 mls/hr Insulin Human Regular (Humulin R) 0 units SC ACHS [facility]; Protocol Last Admin: 02/13/19 06:34 Dose: 1 units Lactulose (Enulose) 20 gm PO TID [facility] Last Admin: 02/13/19 08:25 Dose: 20 gm Levothyroxine Sodium (Synthroid) 50 mcg PO DAILY@0630 [facility] Last Admin: 02/13/19 05:57 Dose: 50 mcg Pantoprazole Sodium (Protonix Susp) 40 mg PO DAILY [facility] Last Admin: 02/13/19 08:26 Dose: 40 mg Prednisone (Prednisone Tab) 15 mg PO DAILY [facility] Stop: 02/14/19 23:59 Last Admin: 02/13/19 08:26 Dose: 15 mg Prednisone (Prednisone Tab) 10 mg PO DAILY [facility] Stop: 02/17/19 23:59 Prednisone (Prednisone Tab) 5 mg PO DAILY [facility] Stop: 02/21/19 23:59 Promethazine HCl/Dextromethorphan (Phenergan Dm Syrup) 10 ml PO Q6 PRN PRN Reason: Cough Rifaximin (Xifaxan) 550 mg PO BID [facility]; Protocol Last Admin: 02/13/19 08:27 Dose: 550 mg Spironolactone (Aldactone) 50 mg PO DAILY [facility] Last Admin: 02/13/19 08:24 Dose: 50 mg Tamsulosin HCl (Flomax) 0.4 mg PO DAILY [facility] Last Admin: 02/13/19 08:25 Dose: 0.4 mg Thiamine HCl (Vitamin B1 Tab) 100 mg PO DAILY [facility] Last Admin: 02/13/19 08:27 Dose: 100 mg - Labs Labs: 02/13/19 04:19 02/13/19 04:15 PT 17.7 Seconds (9.8-13.1) H 02/07/19 23:00 INR 1.6 02/07/19 23:00 APTT 26.2 Seconds (25.6-37.1) 02/07/19 23:00 - Constitutional Appears: No Acute Distress - Head Exam Head Exam: ATRAUMATIC, NORMAL INSPECTION, NORMOCEPHALIC - Eye Exam Eye Exam: EOMI, Normal appearance, PERRL Pupil Exam: NORMAL ACCOMODATION, PERRL - ENT Exam ENT Exam: Mucous Membranes Moist, Normal Exam - Neck Exam Neck Exam: Full ROM, Normal Inspection. absent: Lymphadenopathy - Respiratory Exam Respiratory Exam: Clear to Ausculation Bilateral, NORMAL BREATHING PATTERN - Cardiovascular Exam Cardiovascular Exam: REGULAR RHYTHM, +S1, +S2. absent: Murmur - GI/Abdominal Exam GI & Abdominal Exam: Soft, Normal Bowel Sounds. absent: Tenderness - Rectal Exam Rectal Exam: NORMAL INSPECTION - Extremities Exam Extremities Exam: Full ROM, Normal Capillary Refill, Normal Inspection. absent: Joint Swelling, Pedal Edema - Back Exam Back Exam: NORMAL INSPECTION - Neurological Exam Neurological Exam: Alert, Awake, CN II-XII Intact, Oriented x3 - Psychiatric Exam Psychiatric exam: Normal Affect, Normal Mood - Skin Skin Exam: Dry, Intact, Normal Color, Warm Assessment and Plan - Assessment and Plan (Free Text) Assessment: ASPIRATION PNEUMONIA--CLINICALLY IMPROVED HX OF LIVER CANCER HX OF CHRONIC ALCOHOLISM Plan: REPEAT CXR CONTINUE IV ANTIBIOTIC THERAPY
--- NOTE | 2019-02-13 13:09 | CP.PCM.PN ---
Subjective - Date & Time of Evaluation Date of Evaluation: 02/13/19 Time of Evaluation: 12:00 - Subjective Subjective: Feeling better. Objective - Vital Signs/Intake and Output Vital Signs (last 24 hours): Temp Pulse Resp BP Pulse Ox 98.2 F 70 12 96/48 L 100 02/13/19 08:18 02/13/19 12:10 02/13/19 12:10 02/13/19 12:10 02/13/19 12:10 Intake and Output: 02/13/19 02/13/19 06:59 18:59 Intake Total 460 Output Total 1760 Balance -1300 - Medications Medications: Current Medications Acetaminophen (Tylenol 650mg/20.3ml Solution Ud) 650 mg PO Q6 PRN PRN Reason: Temperature Acetylcysteine (Acetylcysteine 20%) 2 ml INH RBID [facility] Last Admin: 02/13/19 07:37 Dose: 2 ml Albuterol/Ipratropium (Duoneb 3 Mg/0.5 Mg (3 Ml) Ud) 3 ml INH RQ4 PRN PRN Reason: Shortness of Breath Last Admin: 02/13/19 07:37 Dose: 3 ml Benzonatate (Tessalon Perles) 100 mg PO Q8 PRN PRN Reason: Cough Carvedilol (Coreg) 6.25 mg PO Q12 [facility] Last Admin: 02/13/19 09:00 Dose: Not Given Dextrose (Dextrose 50% Inj) 0 ml IV STAT PRN; Protocol PRN Reason: Hypoglycemia Protocol Dextrose (Glutose 15) 15 gm PO ONCE PRN PRN Reason: Hypoglycemia Dextrose (Glutose 15) 0 gm PO ONCE PRN; Protocol PRN Reason: Hypoglycemia Protocol Diphenhydramine HCl (Benadryl) 50 mg IVP Q6 PRN PRN Reason: Agitation Folic Acid (Folic Acid) 1 mg PO DAILY [facility] Last Admin: 02/13/19 08:25 Dose: 1 mg Furosemide (Lasix) 20 mg PO DAILY [facility] Last Admin: 02/13/19 09:00 Dose: Not Given Haloperidol Lactate (Haldol) 5 mg IM Q6 PRN PRN Reason: Agitation Meropenem 1 gm/ Sodium (Chloride) 100 mls @ 100 mls/hr IVPB Q8 [facility]; Protocol Last Admin: 02/13/19 08:25 Dose: 100 mls/hr Insulin Human Regular (Humulin R) 0 units SC ACHS [facility]; Protocol Last Admin: 02/13/19 11:41 Dose: 6 units Lactulose (Enulose) 20 gm PO TID [facility] Last Admin: 02/13/19 12:11 Dose: 20 gm Levothyroxine Sodium (Synthroid) 50 mcg PO DAILY@0630 [facility] Last Admin: 02/13/19 05:57 Dose: 50 mcg Pantoprazole Sodium (Protonix Susp) 40 mg PO DAILY [facility] Last Admin: 02/13/19 08:26 Dose: 40 mg Prednisone (Prednisone Tab) 15 mg PO DAILY [facility] Stop: 02/14/19 23:59 Last Admin: 02/13/19 08:26 Dose: 15 mg Prednisone (Prednisone Tab) 10 mg PO DAILY [facility] Stop: 02/17/19 23:59 Prednisone (Prednisone Tab) 5 mg PO DAILY [facility] Stop: 02/21/19 23:59 Promethazine HCl/Dextromethorphan (Phenergan Dm Syrup) 10 ml PO Q6 PRN PRN Reason: Cough Spironolactone (Aldactone) 50 mg PO DAILY [facility] Last Admin: 02/13/19 08:24 Dose: 50 mg Tamsulosin HCl (Flomax) 0.4 mg PO DAILY [facility] Last Admin: 02/13/19 08:25 Dose: 0.4 mg Thiamine HCl (Vitamin B1 Tab) 100 mg PO DAILY [facility] Last Admin: 02/13/19 08:27 Dose: 100 mg - Labs Labs: 02/13/19 04:19 02/13/19 04:15 PT 17.7 Seconds (9.8-13.1) H 02/07/19 23:00 INR 1.6 02/07/19 23:00 APTT 26.2 Seconds (25.6-37.1) 02/07/19 23:00 - Head Exam Head Exam: ATRAUMATIC - Eye Exam Eye Exam: Normal appearance - ENT Exam ENT Exam: Mucous Membranes Dry - Respiratory Exam Respiratory Exam: NORMAL BREATHING PATTERN - Cardiovascular Exam Cardiovascular Exam: +S1, +S2 - GI/Abdominal Exam GI & Abdominal Exam: Normal Bowel Sounds Assessment and Plan (1) Anemia Assessment & Plan: anemia of chronic disease Status: Acute (2) Thrombocytopenia Assessment & Plan: secondary to liver disease and splenic sequestration Status: Acute (3) Coagulopathy Assessment & Plan: liver disease Status: Acute (4) Hepatocellular carcinoma Assessment & Plan: outpatient treatment Status: Acute
[2019-02-14] MEDS: Meropenem 1 GM in Sodium Chloride 0.9% 100 ML IVPB SCH ×3 (01:10→16:29)
[2019-02-14] MEDS: Levothyroxine 50 MCG TAB PO SCH (06:05)
[2019-02-14] MEDS: Acetylcysteine 20% Inhal Soln (4ml) INH SCH ×2 (07:48→19:12)
[2019-02-14] MEDS: Albuterol-Ipratrop 3 mg / 0.5 (3 ml) UD INH PRN ×2 (07:49→19:12)
[2019-02-14] MEDS: Insulin Regular 100 units/ml SC SCH ×4 (08:04→22:20)
--- NOTE | 2019-02-14 08:08 | RAD ---
Date of service: 02/13/2019 HISTORY: PNEUMONIA COMPARISON: Portable chest 02/09/2019. TECHNIQUE: 1 view obtained. FINDINGS: LUNGS: Further diminished pulmonary volume. Crowding of bronchovascular markings is apparent with limited atelectasis or infiltrate question at the medial bases bilaterally. PLEURA: No significant pleural effusion identified, no pneumothorax apparent. CARDIOVASCULAR: No aortic atherosclerotic calcification present. Stable cardiac silhouette. Left PICC insertion unchanged. No pulmonary vascular congestion. OSSEOUS STRUCTURES: No significant abnormalities. VISUALIZED UPPER ABDOMEN: Normal. OTHER FINDINGS: None. IMPRESSION: Diminished pulmonary volume evident. Crowding of the bronchovascular markings is seen the bases with this limited airspace disease identified at the medial bases bilaterally. Stable cardiomegaly. No pulmonary vascular congestion.
[2019-02-14] MEDS: Pantoprazole 40 mg Susp UD PO SCH (08:21)
[2019-02-15] MEDS: Meropenem 1 GM in Sodium Chloride 0.9% 100 ML IVPB SCH ×2 (00:20→08:18)
[2019-02-15] MEDS: Levothyroxine 50 MCG TAB PO SCH (05:40)
[2019-02-15] MEDS: Albuterol-Ipratrop 3 mg / 0.5 (3 ml) UD INH PRN (07:48)
[2019-02-15] MEDS: Acetylcysteine 20% Inhal Soln (4ml) INH SCH (07:48)
[2019-02-15] MEDS: Insulin Regular 100 units/ml SC SCH ×2 (08:14→12:32)
[2019-02-15 08:15] VITALS: BP 98/58; RESP 18; TEMP 97.6
[2019-02-15] MEDS: Pantoprazole 40 mg Susp UD PO SCH (08:19)
--- NOTE | 2019-02-15 11:31 | CP.PCM.PN ---
Subjective - Date & Time of Evaluation Date of Evaluation: 02/14/19 Time of Evaluation: 18:20 - Subjective Subjective: Seen and examined on the bedside. Shortness of breath has subsided. Swelling on upper and lower extremity has resolved. Mental status remains good orientation x3. PT/OT evaluate the patient recommended acute rehab, pending preauthorization and placement. Objective - Vital Signs/Intake and Output Vital Signs (last 24 hours): Temp Pulse Resp BP Pulse Ox 97.6 F 67 18 98/58 L 99 02/15/19 08:13 02/15/19 08:13 02/15/19 08:13 02/15/19 08:18 02/15/19 08:13 - Medications Medications: Current Medications Acetaminophen (Tylenol 650mg/20.3ml Solution Ud) 650 mg PO Q6 PRN PRN Reason: Temperature Acetylcysteine (Acetylcysteine 20%) 2 ml INH RBID [facility] Last Admin: 02/15/19 07:48 Dose: 2 ml Albuterol/Ipratropium (Duoneb 3 Mg/0.5 Mg (3 Ml) Ud) 3 ml INH RQ4 PRN PRN Reason: Shortness of Breath Last Admin: 02/15/19 07:48 Dose: 3 ml Benzonatate (Tessalon Perles) 100 mg PO Q8 PRN PRN Reason: Cough Carvedilol (Coreg) 6.25 mg PO Q12 [facility] Last Admin: 02/15/19 08:17 Dose: Not Given Dextrose (Dextrose 50% Inj) 0 ml IV STAT PRN; Protocol PRN Reason: Hypoglycemia Protocol Dextrose (Glutose 15) 15 gm PO ONCE PRN PRN Reason: Hypoglycemia Dextrose (Glutose 15) 0 gm PO ONCE PRN; Protocol PRN Reason: Hypoglycemia Protocol Diphenhydramine HCl (Benadryl) 50 mg IVP Q6 PRN PRN Reason: Agitation Folic Acid (Folic Acid) 1 mg PO DAILY [facility] Last Admin: 02/15/19 08:17 Dose: 1 mg Furosemide (Lasix) 20 mg PO DAILY [facility] Last Admin: 02/15/19 08:18 Dose: Not Given Haloperidol Lactate (Haldol) 5 mg IM Q6 PRN PRN Reason: Agitation Meropenem 1 gm/ Sodium (Chloride) 100 mls @ 100 mls/hr IVPB Q8 [facility]; Protocol Stop: 02/16/19 23:00 Last Admin: 02/15/19 08:18 Dose: 100 mls/hr Insulin Human Regular (Humulin R) 0 units SC ACHS [facility]; Protocol Last Admin: 02/15/19 08:14 Dose: 1 units Lactulose (Enulose) 20 gm PO TID [facility] Last Admin: 02/15/19 08:14 Dose: 20 gm Levothyroxine Sodium (Synthroid) 50 mcg PO DAILY@0630 [facility] Last Admin: 02/15/19 05:40 Dose: 50 mcg Pantoprazole Sodium (Protonix Susp) 40 mg PO DAILY [facility] Last Admin: 02/15/19 08:19 Dose: 40 mg Prednisone (Prednisone Tab) 10 mg PO DAILY [facility] Stop: 02/17/19 23:59 Last Admin: 02/15/19 08:19 Dose: 10 mg Prednisone (Prednisone Tab) 5 mg PO DAILY [facility] Stop: 02/21/19 23:59 Promethazine HCl/Dextromethorphan (Phenergan Dm Syrup) 10 ml PO Q6 PRN PRN Reason: Cough Spironolactone (Aldactone) 50 mg PO DAILY [facility] Last Admin: 02/15/19 08:15 Dose: 50 mg Tamsulosin HCl (Flomax) 0.4 mg PO DAILY [facility] Last Admin: 02/15/19 08:17 Dose: 0.4 mg Thiamine HCl (Vitamin B1 Tab) 100 mg PO DAILY [facility] Last Admin: 02/15/19 08:19 Dose: 100 mg - Labs Labs: 02/13/19 04:19 02/13/19 04:15 PT 17.7 Seconds (9.8-13.1) H 02/07/19 23:00 INR 1.6 02/07/19 23:00 APTT 26.2 Seconds (25.6-37.1) 02/07/19 23:00 Assessment and Plan (1) Postextubation stridor Status: Acute (2) Aspiration pneumonia Status: Acute (3) Cirrhosis of liver Status: Acute (4) DM type 2 (diabetes mellitus, type 2) Status: Acute (5) Dyspnea Status: Acute (6) Alcoholic cirrhosis of liver Status: Chronic (7) HTN (hypertension) Status: Chronic - Assessment and Plan (Free Text) Plan: Continue current care PT/OT
--- NOTE | 2019-02-15 11:31 | CP.PCM.PN ---
Subjective - Date & Time of Evaluation Date of Evaluation: 02/13/19 Time of Evaluation: 19:25 - Subjective Subjective: Seen and examined on the bedside. Shortness of breath has subsided. Swelling on upper and lower extremity has resolved. Mental status remains good orientation x3. PT/OT evaluate the patient recommended acute rehab, pending preauthorization and placement. Objective - Vital Signs/Intake and Output Vital Signs (last 24 hours): Temp Pulse Resp BP Pulse Ox 97.6 F 67 18 98/58 L 99 02/15/19 08:13 02/15/19 08:13 02/15/19 08:13 02/15/19 08:18 02/15/19 08:13 - Medications Medications: Current Medications Acetaminophen (Tylenol 650mg/20.3ml Solution Ud) 650 mg PO Q6 PRN PRN Reason: Temperature Acetylcysteine (Acetylcysteine 20%) 2 ml INH RBID [facility] Last Admin: 02/15/19 07:48 Dose: 2 ml Albuterol/Ipratropium (Duoneb 3 Mg/0.5 Mg (3 Ml) Ud) 3 ml INH RQ4 PRN PRN Reason: Shortness of Breath Last Admin: 02/15/19 07:48 Dose: 3 ml Benzonatate (Tessalon Perles) 100 mg PO Q8 PRN PRN Reason: Cough Carvedilol (Coreg) 6.25 mg PO Q12 [facility] Last Admin: 02/15/19 08:17 Dose: Not Given Dextrose (Dextrose 50% Inj) 0 ml IV STAT PRN; Protocol PRN Reason: Hypoglycemia Protocol Dextrose (Glutose 15) 15 gm PO ONCE PRN PRN Reason: Hypoglycemia Dextrose (Glutose 15) 0 gm PO ONCE PRN; Protocol PRN Reason: Hypoglycemia Protocol Diphenhydramine HCl (Benadryl) 50 mg IVP Q6 PRN PRN Reason: Agitation Folic Acid (Folic Acid) 1 mg PO DAILY [facility] Last Admin: 02/15/19 08:17 Dose: 1 mg Furosemide (Lasix) 20 mg PO DAILY [facility] Last Admin: 02/15/19 08:18 Dose: Not Given Haloperidol Lactate (Haldol) 5 mg IM Q6 PRN PRN Reason: Agitation Meropenem 1 gm/ Sodium (Chloride) 100 mls @ 100 mls/hr IVPB Q8 [facility]; Protocol Stop: 02/16/19 23:00 Last Admin: 02/15/19 08:18 Dose: 100 mls/hr Insulin Human Regular (Humulin R) 0 units SC ACHS [facility]; Protocol Last Admin: 02/15/19 08:14 Dose: 1 units Lactulose (Enulose) 20 gm PO TID [facility] Last Admin: 02/15/19 08:14 Dose: 20 gm Levothyroxine Sodium (Synthroid) 50 mcg PO DAILY@0630 [facility] Last Admin: 02/15/19 05:40 Dose: 50 mcg Pantoprazole Sodium (Protonix Susp) 40 mg PO DAILY [facility] Last Admin: 02/15/19 08:19 Dose: 40 mg Prednisone (Prednisone Tab) 10 mg PO DAILY [facility] Stop: 02/17/19 23:59 Last Admin: 02/15/19 08:19 Dose: 10 mg Prednisone (Prednisone Tab) 5 mg PO DAILY [facility] Stop: 02/21/19 23:59 Promethazine HCl/Dextromethorphan (Phenergan Dm Syrup) 10 ml PO Q6 PRN PRN Reason: Cough Spironolactone (Aldactone) 50 mg PO DAILY [facility] Last Admin: 02/15/19 08:15 Dose: 50 mg Tamsulosin HCl (Flomax) 0.4 mg PO DAILY [facility] Last Admin: 02/15/19 08:17 Dose: 0.4 mg Thiamine HCl (Vitamin B1 Tab) 100 mg PO DAILY [facility] Last Admin: 02/15/19 08:19 Dose: 100 mg - Labs Labs: 02/13/19 04:19 02/13/19 04:15 PT 17.7 Seconds (9.8-13.1) H 02/07/19 23:00 INR 1.6 02/07/19 23:00 APTT 26.2 Seconds (25.6-37.1) 02/07/19 23:00 Assessment and Plan (1) Postextubation stridor Status: Acute (2) Aspiration pneumonia Status: Acute (3) Cirrhosis of liver Status: Acute (4) DM type 2 (diabetes mellitus, type 2) Status: Acute (5) Dyspnea Status: Acute (6) Alcoholic cirrhosis of liver Status: Chronic (7) HTN (hypertension) Status: Chronic - Assessment and Plan (Free Text) Plan: Continue current care
--- NOTE | 2019-02-15 12:02 | CP.PCM.PN ---
Subjective - Date & Time of Evaluation Date of Evaluation: 02/15/19 Time of Evaluation: 12:02 - Subjective Subjective: NO COUGH/SOB AWAKE AND ALERT Objective - Vital Signs/Intake and Output Vital Signs (last 24 hours): Temp Pulse Resp BP Pulse Ox 97.6 F 67 18 98/58 L 99 02/15/19 08:13 02/15/19 08:13 02/15/19 08:13 02/15/19 08:18 02/15/19 08:13 - Medications Medications: Current Medications Acetaminophen (Tylenol 650mg/20.3ml Solution Ud) 650 mg PO Q6 PRN PRN Reason: Temperature Acetylcysteine (Acetylcysteine 20%) 2 ml INH RBID [facility] Last Admin: 02/15/19 07:48 Dose: 2 ml Albuterol/Ipratropium (Duoneb 3 Mg/0.5 Mg (3 Ml) Ud) 3 ml INH RQ4 PRN PRN Reason: Shortness of Breath Last Admin: 02/15/19 07:48 Dose: 3 ml Benzonatate (Tessalon Perles) 100 mg PO Q8 PRN PRN Reason: Cough Carvedilol (Coreg) 6.25 mg PO Q12 [facility] Last Admin: 02/15/19 08:17 Dose: Not Given Dextrose (Dextrose 50% Inj) 0 ml IV STAT PRN; Protocol PRN Reason: Hypoglycemia Protocol Dextrose (Glutose 15) 15 gm PO ONCE PRN PRN Reason: Hypoglycemia Dextrose (Glutose 15) 0 gm PO ONCE PRN; Protocol PRN Reason: Hypoglycemia Protocol Diphenhydramine HCl (Benadryl) 50 mg IVP Q6 PRN PRN Reason: Agitation Folic Acid (Folic Acid) 1 mg PO DAILY [facility] Last Admin: 02/15/19 08:17 Dose: 1 mg Furosemide (Lasix) 20 mg PO DAILY [facility] Last Admin: 02/15/19 08:18 Dose: Not Given Haloperidol Lactate (Haldol) 5 mg IM Q6 PRN PRN Reason: Agitation Meropenem 1 gm/ Sodium (Chloride) 100 mls @ 100 mls/hr IVPB Q8 [facility]; Protocol Stop: 02/16/19 23:00 Last Admin: 02/15/19 08:18 Dose: 100 mls/hr Insulin Human Regular (Humulin R) 0 units SC ACHS [facility]; Protocol Last Admin: 02/15/19 08:14 Dose: 1 units Lactulose (Enulose) 20 gm PO TID [facility] Last Admin: 02/15/19 08:14 Dose: 20 gm Levothyroxine Sodium (Synthroid) 50 mcg PO DAILY@0630 [facility] Last Admin: 02/15/19 05:40 Dose: 50 mcg Pantoprazole Sodium (Protonix Susp) 40 mg PO DAILY [facility] Last Admin: 02/15/19 08:19 Dose: 40 mg Prednisone (Prednisone Tab) 10 mg PO DAILY [facility] Stop: 02/17/19 23:59 Last Admin: 02/15/19 08:19 Dose: 10 mg Prednisone (Prednisone Tab) 5 mg PO DAILY [facility] Stop: 02/21/19 23:59 Promethazine HCl/Dextromethorphan (Phenergan Dm Syrup) 10 ml PO Q6 PRN PRN Reason: Cough Spironolactone (Aldactone) 50 mg PO DAILY [facility] Last Admin: 02/15/19 08:15 Dose: 50 mg Tamsulosin HCl (Flomax) 0.4 mg PO DAILY [facility] Last Admin: 02/15/19 08:17 Dose: 0.4 mg Thiamine HCl (Vitamin B1 Tab) 100 mg PO DAILY [facility] Last Admin: 02/15/19 08:19 Dose: 100 mg - Labs Labs: 02/13/19 04:19 02/13/19 04:15 PT 17.7 Seconds (9.8-13.1) H 02/07/19 23:00 INR 1.6 02/07/19 23:00 APTT 26.2 Seconds (25.6-37.1) 02/07/19 23:00 - Constitutional Appears: No Acute Distress - Head Exam Head Exam: ATRAUMATIC, NORMAL INSPECTION, NORMOCEPHALIC - Eye Exam Eye Exam: EOMI, Normal appearance, PERRL Pupil Exam: NORMAL ACCOMODATION, PERRL - ENT Exam ENT Exam: Mucous Membranes Moist, Normal Exam - Neck Exam Neck Exam: Full ROM, Normal Inspection. absent: Lymphadenopathy - Respiratory Exam Respiratory Exam: Prolonged Expiratory Phase, NORMAL BREATHING PATTERN - Cardiovascular Exam Cardiovascular Exam: REGULAR RHYTHM, +S1, +S2. absent: Murmur - GI/Abdominal Exam GI & Abdominal Exam: Soft, Normal Bowel Sounds. absent: Tenderness - Rectal Exam Rectal Exam: NORMAL INSPECTION - Extremities Exam Extremities Exam: Full ROM, Normal Capillary Refill, Normal Inspection. absent: Joint Swelling, Pedal Edema - Back Exam Back Exam: NORMAL INSPECTION - Neurological Exam Neurological Exam: Alert, Awake, CN II-XII Intact, Oriented x3 - Psychiatric Exam Psychiatric exam: Normal Affect, Normal Mood - Skin Skin Exam: Dry, Intact, Normal Color, Warm Assessment and Plan - Assessment and Plan (Free Text) Assessment: ASPIRATION PNEUMONIA-RESOLVED HX OF CHRONIC ALCOHOLISM Plan: NO FURTHER PULMONARY INTERVENTION FOR NOW WILL SIGN OFF CASE AND SEE AGAIN AT YOUR REQUEST
[2019-02-15 13:49] VITALS: PULSE 79; O2SAT 96
--- NOTE | 2019-02-15 21:33 | CP.PCM.PN ---
Subjective - Date & Time of Evaluation Date of Evaluation: 02/14/19 Time of Evaluation: 14:00 - Subjective Subjective: No complaints. Objective - Vital Signs/Intake and Output Vital Signs (last 24 hours): Temp Pulse Resp BP Pulse Ox 97.6 F 79 18 98/58 L 96 02/15/19 08:13 02/15/19 10:30 02/15/19 08:13 02/15/19 08:18 02/15/19 10:30 - Labs Labs: 02/13/19 04:19 02/13/19 04:15 PT 17.7 Seconds (9.8-13.1) H 02/07/19 23:00 INR 1.6 02/07/19 23:00 APTT 26.2 Seconds (25.6-37.1) 02/07/19 23:00 - Head Exam Head Exam: ATRAUMATIC - ENT Exam ENT Exam: Mucous Membranes Dry - Respiratory Exam Respiratory Exam: Decreased Breath Sounds - Cardiovascular Exam Cardiovascular Exam: +S1, +S2 - GI/Abdominal Exam GI & Abdominal Exam: Normal Bowel Sounds Assessment and Plan (1) Anemia Assessment & Plan: anemia of chronic disease Status: Acute (2) Thrombocytopenia Assessment & Plan: secondary to liver disease and splenic sequestration Status: Acute (3) Coagulopathy Assessment & Plan: liver disease Status: Acute (4) Hepatocellular carcinoma Assessment & Plan: outpatient treatment Status: Acute
--- NOTE | 2019-02-15 21:34 | CP.PCM.PN ---
Subjective - Date & Time of Evaluation Date of Evaluation: 02/15/19 Time of Evaluation: 12:00 - Subjective Subjective: No complaints. Objective - Vital Signs/Intake and Output Vital Signs (last 24 hours): Temp Pulse Resp BP Pulse Ox 97.6 F 79 18 98/58 L 96 02/15/19 08:13 02/15/19 10:30 02/15/19 08:13 02/15/19 08:18 02/15/19 10:30 - Labs Labs: 02/13/19 04:19 02/13/19 04:15 PT 17.7 Seconds (9.8-13.1) H 02/07/19 23:00 INR 1.6 02/07/19 23:00 APTT 26.2 Seconds (25.6-37.1) 02/07/19 23:00 - Head Exam Head Exam: ATRAUMATIC - Eye Exam Eye Exam: Normal appearance - ENT Exam ENT Exam: Mucous Membranes Dry - Respiratory Exam Respiratory Exam: NORMAL BREATHING PATTERN - Cardiovascular Exam Cardiovascular Exam: +S1, +S2 - GI/Abdominal Exam GI & Abdominal Exam: Normal Bowel Sounds Assessment and Plan (1) Anemia Assessment & Plan: anemia of chronic disease Status: Acute (2) Thrombocytopenia Assessment & Plan: secondary to liver disease and splenic sequestration Status: Acute (3) Coagulopathy Assessment & Plan: liver disease Status: Acute (4) Hepatocellular carcinoma Assessment & Plan: outpatient treatment Status: Acute
== END 2019-02-15 14:42 | DRG 178 ==
LOC: H.ER 18:18 → H.ERHOLD 19:00 → H.TEL 02-08 00:07 → H.ICU/CCU 02-09 16:37 → H.MEDSURG1 02-14 14:26
PROVIDERS: ADMIT Internal Medicine; ATTEND Internal Medicine
PROC: 3E0F7GC Introduction of Other Therapeutic Substance into Respiratory Tract, Via Natural or Artificial Opening (ICD-10-PCS; principal; 2019-02-07)
PROC: 5A09457 Assistance with Respiratory Ventilation, 24-96 Consecutive Hours, Continuous Positive Airway Pressure (ICD-10-PCS; 2019-02-07)
DX: J69.0 Pneumonitis due to inhalation of food and vomit (principal); C22.0 Liver cell carcinoma; J98.11 Atelectasis; D68.4 Acquired coagulation factor deficiency; K70.30 Alcoholic cirrhosis of liver without ascites; K70.40 Alcoholic hepatic failure without coma; F10.21 Alcohol dependence, in remission; D69.59 Other secondary thrombocytopenia; D63.8 Anemia in other chronic diseases classified elsewhere; E11.22 Type 2 diabetes mellitus with diabetic chronic kidney disease; I12.9 Hypertensive chronic kidney disease with stage 1 through stage 4 chronic kidney disease, or unspecified chronic kidney disease; N18.9 Chronic kidney disease, unspecified; E78.5 Hyperlipidemia, unspecified; E78.00 Pure hypercholesterolemia, unspecified; Z79.4 Long term (current) use of insulin

== ENCOUNTER 2019-02-15 10:31 | Inpatient (IN) | payer MEDICARE, MEDICAID ==
[2019-02-15 14:47] VITALS: BMI 30.4
[2019-02-15] MEDS ORDERED: Acetaminophen 650mg/20.3ml solution UD PO PRN (16:48)
[2019-02-15] MEDS ORDERED: Albuterol 0.083% Inhal Sol (2.5 mg/3 mL) UD IH SCH (17:00)
[2019-02-15] MEDS: Albuterol-Ipratrop 3 mg / 0.5 (3 ml) UD INH PRN (19:13)
[2019-02-15] MEDS: Acetylcysteine 20% Inhal Soln (4ml) IH SCH (19:13)
[2019-02-15] MEDS ORDERED: Glucagon Recombinant 1 mg Inj IM PRN (19:32)
[2019-02-15] MEDS ORDERED: Dextrose 50% SYRINGE Inj (50 ml) IV PRN (19:32)
[2019-02-15] MEDS: Meropenem 1 GM in Sodium Chloride 0.9% 100 ML IVPB SCH (21:51)
[2019-02-15] MEDS ORDERED: Patient's Own Med (Meropenem [Merrem Iv] 1 GM) IVPB SCH (22:00)
[2019-02-15] MEDS: Insulin Regular 100 units/ml SC SCH ×2 (22:38→22:40)
[2019-02-16] MEDS: Meropenem 1 GM in Sodium Chloride 0.9% 100 ML IVPB SCH ×2 (05:15→13:09)
[2019-02-16] MEDS: Levothyroxine 50 MCG TAB PO SCH (06:14)
[2019-02-16 06:17] LABS: BLOOD UREA NITROGEN 15 mg/dl (9-20); CALCIUM 7.9 mg/dL (8.4-10.2); GFR NON-AFRICAN AMERICAN > 60
[2019-02-16 06:24] LABS: HEMOGLOBIN 8.8 g/dL (12.0-18.0); MEAN CORPUSCULAR HEMOGLOBIN 38.2 pg (27.0-31.0); MEAN CORPUSCULAR HGB CONC 34.1 g/dL (33.0-37.0); RBC 2.31 Mil/uL (4.40-5.90); RED CELL DISTRIBUTION WIDTH 14.7 % (11.5-14.5); WHITE BLOOD COUNT 8.2 K/uL (4.8-10.8)
[2019-02-16] MEDS: Insulin Regular 100 units/ml SC SCH ×4 (07:12→21:39)
[2019-02-16] MEDS: Acetylcysteine 20% Inhal Soln (4ml) IH SCH ×2 (07:43→19:07)
[2019-02-16] MEDS: Pantoprazole 40 mg Susp UD PO SCH (09:25)
--- NOTE | 2019-02-16 09:51 | CP.PCM.CON ---
History of Present Illness - History of Present Illness History of Present Illness: Infectious Disease follow up consultation. Pt. transferred to acute rehab for PT . HPI- 69 year old male with h/o ETOH abuse, liver cirrhosis, liver cancer undergoing chemo who was admitted originally with change in MS and was intubated and was in ICU for long time and was treated for pseudomonas and k.oxytoca in sputum cx with 11 days of meropnem was extubated and clinically was much improved and was transferred to Acute rehab and then he developed aspiration and sob sob and was taken to ED and now is admitted to tele and ICU and was restarted on IV meropnem to cover for aspiration pnumonitis. pt. is clinically much improved and no sob and no fever and no cough anymore and is transferred to acute rehab for PT . Pt. is currently sitting up in his bed with family member at his bedside and he is in very good spirits and denies nay complaints. denies any fever or chills, denies any cough or sob, denies qany chest pain, denies any nausea or vomiting. Review of Systems - Review of Systems Review of Systems: ROS- as stated in HPI Past Patient History - Infectious Disease Hx of Infectious Diseases: None - Past Medical History & Family History Past Medical History?: Yes - Past Social History Smoking Status: Never Smoked - CARDIAC Hx Cardiac Disorders: Yes Hx Hypercholesterolemia: Yes Hx Hypertension: Yes - PULMONARY Hx Respiratory Disorders: No Other/Comment: h/o acute respiratory failure, bacterial pneumonia. - NEUROLOGICAL Hx Neurological Disorder: No - HEENT Hx HEENT Problems: Yes Hx Cataracts: Yes - RENAL Hx Renal Failure: Yes - ENDOCRINE/METABOLIC Hx Diabetes Mellitus Type 2: Yes - HEMATOLOGICAL/ONCOLOGICAL Hx Blood Disorders: Yes Hx Cancer: Yes - MUSCULOSKELETAL/RHEUMATOLOGICAL Hx Musculoskeletal Disorders: No Hx Falls: No - GASTROINTESTINAL Hx Gastrointestinal Disorders: Yes Hx Gastritis: Yes - GENITOURINARY/GYNECOLOGICAL Hx Genitourinary Disorders: Yes Hx Prostate Problems: Yes - PSYCHIATRIC Hx Psychophysiologic Disorder: No Hx Substance Use: No - SURGICAL HISTORY Hx Surgeries: No Hx Mastectomy: No - ANESTHESIA Hx Anesthesia: Yes Hx Anesthesia Reactions: Yes (per "coma") Hx Malignant Hyperthermia: No Meds Allergies/Adverse Reactions: Allergies Allergy/AdvReac Type Severity Reaction Status Date / Time No Known Allergies Allergy Verified 02/01/19 20:20 - Medications Medications: Current Medications Acetaminophen (Tylenol 650mg/20.3ml Solution Ud) 650 mg PO Q6 PRN PRN Reason: Temp >100.4 Acetylcysteine (Acetylcysteine 20%) 2 ml IH RBID [facility] Last Admin: 02/16/19 07:43 Dose: Not Given Albuterol/Ipratropium (Duoneb 3 Mg/0.5 Mg (3 Ml) Ud) 3 ml INH RQ4 PRN PRN Reason: Shortness of Breath Last Admin: 02/15/19 19:13 Dose: 3 ml Carvedilol (Coreg) 6.25 mg PO Q12 [facility] Last Admin: 02/16/19 09:22 Dose: 6.25 mg Folic Acid (Folic Acid) 1 mg PO DAILY [facility] Last Admin: 02/16/19 09:21 Dose: 1 mg Furosemide (Lasix) 20 mg PO DAILY [facility] Last Admin: 02/16/19 09:23 Dose: 20 mg Meropenem 1 gm/ Sodium (Chloride) 100 mls @ 100 mls/hr IVPB Q8 [facility]; Protocol Stop: 02/16/19 23:00 Last Admin: 02/16/19 05:15 Dose: 100 mls/hr Insulin Human Regular (Humulin R) 0 units SC ACHS [facility]; Protocol Last Admin: 02/16/19 07:12 Dose: 3 units Lactulose (Enulose) 20 gm PO TID [facility] Last Admin: 02/16/19 09:24 Dose: 20 gm Levothyroxine Sodium (Synthroid) 50 mcg PO DAILY@0630 [facility] Last Admin: 02/16/19 06:14 Dose: 50 mcg Pantoprazole Sodium (Protonix Susp) 40 mg PO DAILY [facility] Last Admin: 02/16/19 09:25 Dose: 40 mg Prednisone (Prednisone Tab) 10 mg PO DAILY [facility] Last Admin: 02/16/19 09:21 Dose: 10 mg Prednisone (Prednisone Tab) 5 mg PO DAILY [facility] Promethazine HCl/Dextromethorphan (Phenergan Dm Syrup) 10 ml PO Q6 PRN PRN Reason: Cough Spironolactone (Aldactone) 50 mg PO DAILY [facility] Last Admin: 02/16/19 09:25 Dose: 50 mg Tamsulosin HCl (Flomax) 0.4 mg PO DAILY [facility] Last Admin: 02/16/19 09:24 Dose: 0.4 mg Thiamine HCl (Vitamin B1 Tab) 100 mg PO DAILY [facility] Last Admin: 02/16/19 09:24 Dose: 100 mg Physical Exam - Constitutional Appears: No Acute Distress - Head Exam Head Exam: ATRAUMATIC - Eye Exam Eye Exam: EOMI - ENT Exam ENT Exam: Normal Oropharynx - Neck Exam Neck exam: Positive for: Full Rom - Respiratory Exam Respiratory Exam: NORMAL BREATHING PATTERN Additional comments: good breath sounds b/l no wheezing - Cardiovascular Exam Cardiovascular Exam: RRR, +S1, +S2 - GI/Abdominal Exam GI & Abdominal Exam: Normal Bowel Sounds, Soft Additional comments: NT, ND - Extremities Exam Extremities exam: Positive for: normal inspection - Neurological Exam Neurological exam: Alert, Oriented x3 Results - Vital Signs Recent Vital Signs: Last Vital Signs Temp 97.8 F 02/16/19 08:07 Pulse 61 02/16/19 09:22 Resp 21 02/16/19 08:07 BP 101/55 L 02/16/19 09:23 Pulse Ox 98 02/16/19 08:07 - Labs Result Diagrams: 02/16/19 06:10 02/16/19 05:35 Labs: Laboratory Results - last 24 hr 02/15/19 02/16/19 02/16/19 21:03 05:34 05:35 WBC RBC Hgb Hct MCV MCH MCHC RDW Plt Count Sodium 132 Potassium 4.9 Chloride 101 Carbon Dioxide 30 Anion Gap 6 L BUN 15 Creatinine 0.6 L Est GFR ( Amer) > 60 Est GFR (Non-Af Amer) > 60 POC Glucose (mg/dL) 348 H 271 H Random Glucose 219 H Calcium 7.9 L 02/16/19 06:10 WBC 8.2 RBC 2.31 L Hgb 8.8 L Hct 25.9 L MCV 112.0 H MCH 38.2 H MCHC 34.1 RDW 14.7 H Plt Count 67 L Sodium Potassium Chloride Carbon Dioxide Anion Gap BUN Creatinine Est GFR ( Amer) Est GFR (Non-Af Amer) POC Glucose (mg/dL) Random Glucose Calcium Microbiology 02/14/19 16:10 Naris MRSA Culture (Admit) - Final MRSA NOT DETECTED 02/07/19 23:00 Blood-Venous Blood Culture - Final 02/07/19 23:00 Blood-Venous Gram Stain - Final NO GROWTH AFTER 5 DAYS TEST NOT PERFORMED 01/18/19 17:39 Blood-Venous Blood Culture - Final 01/18/19 17:39 Blood-Venous Gram Stain - Final NO GROWTH AFTER 5 DAYS TEST NOT PERFORMED 01/18/19 12:20 Blood-Venous Blood Culture - Final 01/18/19 12:20 Blood-Venous Gram Stain - Final NO GROWTH AFTER 5 DAYS TEST NOT PERFORMED 01/17/19 18:20 Sputum Gram Stain - Final 01/17/19 18:20 Sputum Sputum Culture - Final Pseudomonas Aeruginosa 01/15/19 18:40 Blood Blood Culture - Final 01/15/19 18:40 Blood Gram Stain - Final NO GROWTH AFTER 5 DAYS TEST NOT PERFORMED 01/15/19 17:45 Blood Blood Culture - Final 01/15/19 17:45 Blood Gram Stain - Final NO GROWTH AFTER 5 DAYS TEST NOT PERFORMED 01/10/19 21:25 Trachasp Gram Stain - Final 01/10/19 21:25 Trachasp Sputum Culture - Final Klebsiella Oxytoca Pseudomonas Aeruginosa Accession No. : [id number] Patient Name / ID : SUSAN Quiros / [id number] Exam Date : 02/13/2019 18:22:58 ( Approved ) Study Comment : Sex / Age : M / 69Y Creator : Adrián Joshi MD Dictator : Adrián Joshi MD Fire Suppression Captain : Cattle Sprayer : Adrián Joshi MD Approver2 : Report Date : 02/14/2019 08:02:49 My Comment : Date of service: 02/13/2019 HISTORY: PNEUMONIA COMPARISON: Portable chest 02/09/2019. TECHNIQUE: 1 view obtained. FINDINGS: LUNGS: Further diminished pulmonary volume. Crowding of bronchovascular markings is apparent with limited atelectasis or infiltrate question at the medial bases bilaterally. PLEURA: No significant pleural effusion identified, no pneumothorax apparent. CARDIOVASCULAR: No aortic atherosclerotic calcification present. Stable cardiac silhouette. Left PICC insertion unchanged. No pulmonary vascular congestion. OSSEOUS STRUCTURES: No significant abnormalities. VISUALIZED UPPER ABDOMEN: Normal. OTHER FINDINGS: None. IMPRESSION: Diminished pulmonary volume evident. Crowding of the bronchovascular markings is seen the bases with this limited airspace disease identified at the medial bases bilaterally. Stable cardiomegaly. No pulmonary vascular congestion. Assessment & Plan (1) Aspiration pneumonitis Status: Acute (2) Cirrhosis of liver Status: Acute Priority: High - Assessment and Plan (Free Text) Assessment: A/P- clinically much improved and transferred to acute rehab. aspiration pneumoniis seems to have resolved. afebrile no leukocytois cxr- much improved Plan- completed 8 additional days of IV meropenem today. d/c meropenem now. pt. was advised to monitor aspiration precautions. will sign off the case at this time. Plea re-consult PRN.
--- NOTE | 2019-02-16 11:52 | CP.PCM.PN ---
Subjective - Date & Time of Evaluation Date of Evaluation: 02/16/19 Time of Evaluation: 09:55 - Subjective Subjective: no acute complaints at present Objective - Vital Signs/Intake and Output Vital Signs (last 24 hours): Temp Pulse Resp BP Pulse Ox 97.8 F 81 21 101/55 L 98 02/16/19 08:07 02/16/19 09:49 02/16/19 08:07 02/16/19 09:23 02/16/19 09:49 - Medications Medications: Current Medications Acetaminophen (Tylenol 650mg/20.3ml Solution Ud) 650 mg PO Q6 PRN PRN Reason: Temp >100.4 Acetylcysteine (Acetylcysteine 20%) 2 ml IH RBID [facility] Last Admin: 02/16/19 07:43 Dose: Not Given Albuterol/Ipratropium (Duoneb 3 Mg/0.5 Mg (3 Ml) Ud) 3 ml INH RQ4 PRN PRN Reason: Shortness of Breath Last Admin: 02/15/19 19:13 Dose: 3 ml Carvedilol (Coreg) 6.25 mg PO Q12 [facility] Last Admin: 02/16/19 09:22 Dose: 6.25 mg Folic Acid (Folic Acid) 1 mg PO DAILY [facility] Last Admin: 02/16/19 09:21 Dose: 1 mg Furosemide (Lasix) 20 mg PO DAILY [facility] Last Admin: 02/16/19 09:23 Dose: 20 mg Meropenem 1 gm/ Sodium (Chloride) 100 mls @ 100 mls/hr IVPB Q8 [facility]; Protocol Stop: 02/16/19 23:00 Last Admin: 02/16/19 05:15 Dose: 100 mls/hr Insulin Human Regular (Humulin R) 0 units SC ACHS [facility]; Protocol Last Admin: 02/16/19 07:12 Dose: 3 units Lactulose (Enulose) 20 gm PO TID [facility] Last Admin: 02/16/19 09:24 Dose: 20 gm Levothyroxine Sodium (Synthroid) 50 mcg PO DAILY@0630 [facility] Last Admin: 02/16/19 06:14 Dose: 50 mcg Pantoprazole Sodium (Protonix Susp) 40 mg PO DAILY [facility] Last Admin: 02/16/19 09:25 Dose: 40 mg Prednisone (Prednisone Tab) 10 mg PO DAILY [facility] Last Admin: 02/16/19 09:21 Dose: 10 mg Prednisone (Prednisone Tab) 5 mg PO DAILY [facility] Promethazine HCl/Dextromethorphan (Phenergan Dm Syrup) 10 ml PO Q6 PRN PRN Reason: Cough Spironolactone (Aldactone) 50 mg PO DAILY [facility] Last Admin: 02/16/19 09:25 Dose: 50 mg Tamsulosin HCl (Flomax) 0.4 mg PO DAILY [facility] Last Admin: 02/16/19 09:24 Dose: 0.4 mg Thiamine HCl (Vitamin B1 Tab) 100 mg PO DAILY [facility] Last Admin: 02/16/19 09:24 Dose: 100 mg - Labs Labs: 02/16/19 06:10 02/16/19 05:35 - Constitutional Appears: Well - Head Exam Head Exam: ATRAUMATIC, NORMAL INSPECTION, NORMOCEPHALIC - Eye Exam Eye Exam: EOMI, Normal appearance Pupil Exam: NORMAL ACCOMODATION, PERRL - ENT Exam ENT Exam: Mucous Membranes Moist, Normal Exam - Neck Exam Neck Exam: Full ROM - Respiratory Exam Respiratory Exam: NORMAL BREATHING PATTERN - Cardiovascular Exam Cardiovascular Exam: REGULAR RHYTHM - GI/Abdominal Exam GI & Abdominal Exam: Normal Bowel Sounds - Rectal Exam Rectal Exam: NORMAL INSPECTION - Exam External exam: NORMAL EXTERNAL EXAM - Extremities Exam Extremities Exam: Full ROM - Neurological Exam Neurological Exam: Alert, Awake Neuro motor strength exam: Left Upper Extremity: 3, Right Upper Extremity: 3, Left Lower Extremity: 3, Right Lower Extremity: 3 - Psychiatric Exam Psychiatric exam: Normal Affect - Skin Skin Exam: Normal Color Assessment and Plan (1) Aspiration pneumonia Status: Acute (2) Cirrhosis of liver Status: Acute (3) Coagulopathy Status: Acute (4) Hepatic encephalopathy Assessment & Plan: plan for physical, occupational, rec and speech therapy program Status: Resolved
--- NOTE | 2019-02-16 11:56 | PCM.OPOC ---
Physiatry Overall Plan of Care - Overall Plan of Care Estimated Length of Stay in Weeks: 3 Rehab Impairment: Mobility, Gait, Cognition, Speech, Balance, Coordination Etiologic Diagnosis: Other Rehab/Medical Prognosis: Fair - Anticipated Interventions Physical Therapy:: Yes Number of Hours: 1 Number of times per week: 5 Number of Week(s) Duration: 3 Occupational Therapy:: Yes Number of Hours: 1 Number of times per week: 5 Number of Week(s) Duration: 3 Speech Therapy:: Yes Number of Hours: 1 Number of times per week: 5 Number of Week(s) Duration: 3 Recreational Therapy:: Yes Number of Hours: 1 Number of times per week: 5 Number of Week(s) Duration: 3 - Therapy Goals Bed Mobility: Independent Ambulation: Supervision Functional Positional Changes:: Independent - Functional Status Prior to Admission: patient was independent Current Status: now needs assistance in all areas of Adls, TRansfers, gait training - Functional Outcomes Functional Outcomes: fair - Discharge Plan Identification of Barriers to Discharge: Cognition Discharge Destination: Home
--- NOTE | 2019-02-16 12:01 | PCM.CPAPS ---
History of Present Illness - History of Present Illness History of Present Illness: 69 year old male readmitted for acute rehab with diagnosis of hepatic encephalopathy, with other diagnosis of alcoholic liver CA, DM, HTn, pneumonia Review of Systems - Musculoskeletal Musculoskeletal: Muscle Weakness - Neurological Neurological: Lack of Coordination, Weakness Past Patient History - Infectious Disease Hx of Infectious Diseases: None - Past Medical History & Family History Past Medical History?: Yes - Past Social History Smoking Status: Never Smoked - CARDIAC Hx Cardiac Disorders: Yes Hx Hypercholesterolemia: Yes Hx Hypertension: Yes - PULMONARY Hx Respiratory Disorders: No Other/Comment: h/o acute respiratory failure, bacterial pneumonia. - NEUROLOGICAL Hx Neurological Disorder: No - HEENT Hx HEENT Problems: Yes Hx Cataracts: Yes - RENAL Hx Renal Failure: Yes - ENDOCRINE/METABOLIC Hx Diabetes Mellitus Type 2: Yes - HEMATOLOGICAL/ONCOLOGICAL Hx Blood Disorders: Yes Hx AIDS: No Hx Cancer: Yes Hx Human Immunodeficiency Virus (HIV): No - INTEGUMENTARY Hx Dermatological Problems: No - MUSCULOSKELETAL/RHEUMATOLOGICAL Hx Musculoskeletal Disorders: No Hx Falls: No - GASTROINTESTINAL Hx Gastrointestinal Disorders: Yes Hx Gastritis: Yes - GENITOURINARY/GYNECOLOGICAL Hx Genitourinary Disorders: Yes Hx Prostate Problems: Yes - PSYCHIATRIC Hx Psychophysiologic Disorder: No Hx Substance Use: No - SURGICAL HISTORY Hx Surgeries: No Hx Mastectomy: No - ANESTHESIA Hx Anesthesia: Yes Hx Anesthesia Reactions: Yes (per "coma") Hx Malignant Hyperthermia: No Meds Allergies/Adverse Reactions: Allergies Allergy/AdvReac Type Severity Reaction Status Date / Time No Known Allergies Allergy Verified 02/01/19 20:20 - Medications Medications: Current Medications Acetaminophen (Tylenol 650mg/20.3ml Solution Ud) 650 mg PO Q6 PRN PRN Reason: Temp >100.4 Acetylcysteine (Acetylcysteine 20%) 2 ml IH RBID [facility] Last Admin: 02/16/19 07:43 Dose: Not Given Albuterol/Ipratropium (Duoneb 3 Mg/0.5 Mg (3 Ml) Ud) 3 ml INH RQ4 PRN PRN Reason: Shortness of Breath Last Admin: 02/15/19 19:13 Dose: 3 ml Carvedilol (Coreg) 6.25 mg PO Q12 [facility] Last Admin: 02/16/19 09:22 Dose: 6.25 mg Folic Acid (Folic Acid) 1 mg PO DAILY [facility] Last Admin: 02/16/19 09:21 Dose: 1 mg Furosemide (Lasix) 20 mg PO DAILY [facility] Last Admin: 02/16/19 09:23 Dose: 20 mg Meropenem 1 gm/ Sodium (Chloride) 100 mls @ 100 mls/hr IVPB Q8 [facility]; Protocol Stop: 02/16/19 23:00 Last Admin: 02/16/19 05:15 Dose: 100 mls/hr Insulin Human Regular (Humulin R) 0 units SC ACHS [facility]; Protocol Last Admin: 02/16/19 07:12 Dose: 3 units Lactulose (Enulose) 20 gm PO TID [facility] Last Admin: 02/16/19 09:24 Dose: 20 gm Levothyroxine Sodium (Synthroid) 50 mcg PO DAILY@0630 [facility] Last Admin: 02/16/19 06:14 Dose: 50 mcg Pantoprazole Sodium (Protonix Susp) 40 mg PO DAILY [facility] Last Admin: 02/16/19 09:25 Dose: 40 mg Prednisone (Prednisone Tab) 10 mg PO DAILY [facility] Last Admin: 02/16/19 09:21 Dose: 10 mg Prednisone (Prednisone Tab) 5 mg PO DAILY [facility] Promethazine HCl/Dextromethorphan (Phenergan Dm Syrup) 10 ml PO Q6 PRN PRN Reason: Cough Spironolactone (Aldactone) 50 mg PO DAILY [facility] Last Admin: 02/16/19 09:25 Dose: 50 mg Tamsulosin HCl (Flomax) 0.4 mg PO DAILY [facility] Last Admin: 02/16/19 09:24 Dose: 0.4 mg Thiamine HCl (Vitamin B1 Tab) 100 mg PO DAILY [facility] Last Admin: 02/16/19 09:24 Dose: 100 mg Physical Exam - Constitutional Appears: Well - Head Exam Head Exam: ATRAUMATIC, NORMAL INSPECTION, NORMOCEPHALIC - Eye Exam Eye Exam: EOMI, Normal appearance Pupil Exam: NORMAL ACCOMODATION, PERRL - ENT Exam ENT Exam: Mucous Membranes Moist - Neck Exam Neck exam: Positive for: Normal Inspection - Respiratory Exam Respiratory Exam: Clear to Auscultation Bilateral, NORMAL BREATHING PATTERN - Cardiovascular Exam Cardiovascular Exam: REGULAR RHYTHM - GI/Abdominal Exam GI & Abdominal Exam: Normal Bowel Sounds - Rectal Exam Rectal Exam: NORMAL INSPECTION - Exam External exam: NORMAL EXTERNAL EXAM - Extremities Exam Extremities exam: Positive for: normal inspection Additional comments: both upper and lower extremities with weakness, decreased strength and problems with balance - Back Exam Back exam: NORMAL INSPECTION - Neurological Exam Neurological exam: Alert Additional comments: 9 and 10 , swallowing further assessment - Psychiatric Exam Psychiatric exam: Normal Affect - Skin Skin Exam: Normal Color Results - Vital Signs Recent Vital Signs: Last Vital Signs Temp 97.8 F 02/16/19 08:07 Pulse 81 02/16/19 09:49 Resp 21 02/16/19 08:07 BP 101/55 L 02/16/19 09:23 Pulse Ox 98 02/16/19 09:49 - Labs Result Diagrams: 02/16/19 06:10 02/16/19 05:35 Labs: Laboratory Results - last 24 hr 02/15/19 02/16/19 02/16/19 21:03 05:34 05:35 WBC RBC Hgb Hct MCV MCH MCHC RDW Plt Count Sodium 132 Potassium 4.9 Chloride 101 Carbon Dioxide 30 Anion Gap 6 L BUN 15 Creatinine 0.6 L Est GFR ( Amer) > 60 Est GFR (Non-Af Amer) > 60 POC Glucose (mg/dL) 348 H 271 H Random Glucose 219 H Calcium 7.9 L 02/16/19 02/16/19 06:10 11:04 WBC 8.2 RBC 2.31 L Hgb 8.8 L Hct 25.9 L MCV 112.0 H MCH 38.2 H MCHC 34.1 RDW 14.7 H Plt Count 67 L Sodium Potassium Chloride Carbon Dioxide Anion Gap BUN Creatinine Est GFR ( Amer) Est GFR (Non-Af Amer) POC Glucose (mg/dL) 241 H Random Glucose Calcium Assessment & Plan (1) Aspiration pneumonia Status: Acute Priority: High (2) Cirrhosis of liver Status: Acute Priority: High (3) Coagulopathy Status: Acute (4) Hepatic encephalopathy Assessment and Plan: plan for physical, occupational, rec and speech therapy Status: Resolved Priority: Low - Functional Status Prior to Admission: patient was independent Current Status: now needs assistance in adls, transfers and gait Impairment Code: K72.90/16
[2019-02-16] MEDS: Albuterol-Ipratrop 3 mg / 0.5 (3 ml) UD INH PRN (19:07)
[2019-02-17] MEDS: Levothyroxine 50 MCG TAB PO SCH (05:53)
[2019-02-17] MEDS: Albuterol-Ipratrop 3 mg / 0.5 (3 ml) UD INH PRN ×2 (07:19→19:05)
[2019-02-17] MEDS: Acetylcysteine 20% Inhal Soln (4ml) IH SCH ×2 (07:19→19:04)
[2019-02-17] MEDS: Insulin Regular 100 units/ml SC SCH ×4 (07:55→21:44)
[2019-02-17] MEDS: Pantoprazole 40 mg Susp UD PO SCH (08:35)
--- NOTE | 2019-02-17 10:21 | CP.PCM.CON ---
History of Present Illness - History of Present Illness History of Present Illness: 69 YR OLD MALE WHO IS REFERRED FOR PULMONARY CONSULT BY DR PATEL.HE IS WELL KNOWN TO ME FROM HIS PRIOR HOSPITALIZATION.HE HAS A HISTORY OF CHRONIC ALCOHOLISM,HYPOTHYROIDISM,LIVER CANCER AND ASPIRATION PNEUMONIA.HE WAS RECENTLY IN ICU BECAUSE OF ACUTE RESPIRATORY FAILURE AND PNEUMONIA.HE HAS CLINICALLY IMPROVED AND IS PRESENTLY IN ACUTE REHAB. Past Patient History - Infectious Disease Hx of Infectious Diseases: None - Past Medical History & Family History Past Medical History?: Yes - Past Social History Smoking Status: Never Smoked - CARDIAC Hx Cardiac Disorders: Yes Hx Hypercholesterolemia: Yes Hx Hypertension: Yes - PULMONARY Hx Respiratory Disorders: No Other/Comment: h/o acute respiratory failure, bacterial pneumonia. - NEUROLOGICAL Hx Neurological Disorder: No - HEENT Hx HEENT Problems: Yes Hx Cataracts: Yes - RENAL Hx Renal Failure: Yes - ENDOCRINE/METABOLIC Hx Diabetes Mellitus Type 2: Yes - HEMATOLOGICAL/ONCOLOGICAL Hx Blood Disorders: Yes Hx Cancer: Yes - INTEGUMENTARY Hx Dermatological Problems: No - MUSCULOSKELETAL/RHEUMATOLOGICAL Hx Musculoskeletal Disorders: No Hx Falls: No - GASTROINTESTINAL Hx Gastrointestinal Disorders: Yes Hx Gastritis: Yes - GENITOURINARY/GYNECOLOGICAL Hx Genitourinary Disorders: Yes Hx Prostate Problems: Yes - PSYCHIATRIC Hx Psychophysiologic Disorder: No Hx Substance Use: No - SURGICAL HISTORY Hx Surgeries: No Hx Mastectomy: No - ANESTHESIA Hx Anesthesia: Yes Hx Anesthesia Reactions: Yes (per "coma") Hx Malignant Hyperthermia: No Meds Allergies/Adverse Reactions: Allergies Allergy/AdvReac Type Severity Reaction Status Date / Time No Known Allergies Allergy Verified 02/01/19 20:20 - Medications Medications: Current Medications Acetaminophen (Tylenol 650mg/20.3ml Solution Ud) 650 mg PO Q6 PRN PRN Reason: Temp >100.4 Acetylcysteine (Acetylcysteine 20%) 2 ml IH RBID [facility] Last Admin: 02/17/19 07:19 Dose: 2 ml Albuterol/Ipratropium (Duoneb 3 Mg/0.5 Mg (3 Ml) Ud) 3 ml INH RQ4 PRN PRN Reason: Shortness of Breath Last Admin: 02/17/19 07:19 Dose: 3 ml Carvedilol (Coreg) 6.25 mg PO Q12 [facility] Last Admin: 02/17/19 08:35 Dose: Not Given Folic Acid (Folic Acid) 1 mg PO DAILY [facility] Last Admin: 02/17/19 08:36 Dose: 1 mg Furosemide (Lasix) 20 mg PO DAILY [facility] Last Admin: 02/16/19 09:23 Dose: 20 mg Insulin Human Regular (Humulin R) 0 units SC ACHS [facility]; Protocol Last Admin: 02/17/19 07:55 Dose: 2 units Lactulose (Enulose) 20 gm PO TID [facility] Last Admin: 02/17/19 08:32 Dose: 20 gm Levothyroxine Sodium (Synthroid) 50 mcg PO DAILY@0630 [facility] Last Admin: 02/17/19 05:53 Dose: 50 mcg Pantoprazole Sodium (Protonix Susp) 40 mg PO DAILY [facility] Last Admin: 02/17/19 08:35 Dose: 40 mg Prednisone (Prednisone Tab) 10 mg PO DAILY [facility] Last Admin: 02/17/19 08:36 Dose: 10 mg Prednisone (Prednisone Tab) 5 mg PO DAILY [facility] Promethazine HCl/Dextromethorphan (Phenergan Dm Syrup) 10 ml PO Q6 PRN PRN Reason: Cough Spironolactone (Aldactone) 50 mg PO DAILY [facility] Last Admin: 02/17/19 08:37 Dose: 50 mg Tamsulosin HCl (Flomax) 0.4 mg PO DAILY [facility] Last Admin: 02/17/19 08:38 Dose: 0.4 mg Thiamine HCl (Vitamin B1 Tab) 100 mg PO DAILY [facility] Last Admin: 02/17/19 08:36 Dose: 100 mg Physical Exam - Constitutional Appears: Well, No Acute Distress - Head Exam Head Exam: ATRAUMATIC, NORMAL INSPECTION, NORMOCEPHALIC - Eye Exam Eye Exam: EOMI, Normal appearance, PERRL Pupil Exam: NORMAL ACCOMODATION, PERRL - ENT Exam ENT Exam: Mucous Membranes Moist, Normal Exam - Neck Exam Neck exam: Positive for: Normal Inspection - Respiratory Exam Respiratory Exam: Clear to Auscultation Bilateral, NORMAL BREATHING PATTERN - Cardiovascular Exam Cardiovascular Exam: REGULAR RHYTHM - GI/Abdominal Exam GI & Abdominal Exam: Normal Bowel Sounds, Soft. absent: Tenderness - Rectal Exam Rectal Exam: NORMAL INSPECTION - Extremities Exam Extremities exam: Positive for: normal inspection - Back Exam Back exam: NORMAL INSPECTION - Neurological Exam Neurological exam: Alert, CN II-XII Intact, Normal Gait, Oriented x3, Reflexes Normal - Psychiatric Exam Psychiatric exam: Normal Affect, Normal Mood - Skin Skin Exam: Dry, Intact, Normal Color, Warm Results - Vital Signs Recent Vital Signs: Last Vital Signs Temp 97.7 F 02/17/19 08:46 Pulse 70 02/17/19 08:46 Resp 20 02/17/19 08:46 BP 90/56 L 02/17/19 08:46 Pulse Ox 99 02/17/19 08:46 - Labs Result Diagrams: 02/16/19 06:10 02/16/19 05:35 Labs: Laboratory Results - last 24 hr 02/16/19 02/16/19 02/16/19 11:04 16:04 20:44 POC Glucose (mg/dL) 241 H 345 H 271 H 02/17/19 05:43 POC Glucose (mg/dL) 213 H Assessment & Plan - Assessment and Plan (Free Text) Assessment: ASPIRATION PNEUMONIA CLINICALLY IMPROVED Plan: CXR IN AM CONTINUE CURRENT RX - Date & Time Date: 02/17/19 Time: 10:22
[2019-02-18] MEDS: Levothyroxine 50 MCG TAB PO SCH (05:53)
[2019-02-18] MEDS: Albuterol-Ipratrop 3 mg / 0.5 (3 ml) UD INH PRN ×2 (07:35→19:19)
[2019-02-18] MEDS: Acetylcysteine 20% Inhal Soln (4ml) IH SCH ×2 (07:35→19:19)
[2019-02-18] MEDS: Insulin Regular 100 units/ml SC SCH ×4 (07:40→21:55)
[2019-02-18] MEDS: Pantoprazole 40 mg Susp UD PO SCH (08:49)
--- NOTE | 2019-02-18 08:57 | RAD ---
Date of service: 02/18/2019 HISTORY: Portable chest frontal chest radiograph 02/13/2019. COMPARISON: None available. TECHNIQUE: 1 view obtained. FINDINGS: LUNGS: Improved inspiratory volumes. Left PICC unchanged in position. Resolution of prior limited bilateral basilar opacity with no acute infiltrates appreciated at this time. PLEURA: No significant pleural effusion identified, no pneumothorax apparent. CARDIOVASCULAR: No aortic atherosclerotic calcification present. Normal cardiac size. No pulmonary vascular congestion. OSSEOUS STRUCTURES: No significant abnormalities. VISUALIZED UPPER ABDOMEN: Likely vascular embolic material left upper quadrant abdomen. OTHER FINDINGS: None. IMPRESSION: Inspiratory volumes. No acute infiltrates bilaterally. No acute cardiovascular disease appreciated. Left PICC unchanged in position.
[2019-02-18] MEDS: Promethazine DM 12.5 mg-30 mg/10 ml Syrup PO PRN (21:59)
[2019-02-19] MEDS: Levothyroxine 50 MCG TAB PO SCH (06:57)
[2019-02-19] MEDS: Insulin Regular 100 units/ml SC SCH ×4 (06:59→21:14)
[2019-02-19] MEDS: Acetylcysteine 20% Inhal Soln (4ml) IH SCH ×2 (08:03→19:17)
[2019-02-19] MEDS: Albuterol-Ipratrop 3 mg / 0.5 (3 ml) UD INH PRN ×2 (08:03→19:17)
--- NOTE | 2019-02-19 08:12 | CP.PCM.PN ---
Subjective - Date & Time of Evaluation Date of Evaluation: 02/19/19 Time of Evaluation: 08:12 - Subjective Subjective: NO NEW CLINICAL FINDINGS NO CHEST PAINS OR SOB PT/OT PROGRESSING WELL Objective - Vital Signs/Intake and Output Vital Signs (last 24 hours): Temp Pulse Resp BP Pulse Ox 97.3 F L 77 20 104/62 98 02/18/19 20:01 02/18/19 21:54 02/18/19 20:01 02/18/19 21:54 02/18/19 20:01 - Medications Medications: Current Medications Acetaminophen (Tylenol 650mg/20.3ml Solution Ud) 650 mg PO Q6 PRN PRN Reason: Temp >100.4 Acetylcysteine (Acetylcysteine 20%) 2 ml IH RBID [facility] Last Admin: 02/19/19 08:03 Dose: 2 ml Albuterol/Ipratropium (Duoneb 3 Mg/0.5 Mg (3 Ml) Ud) 3 ml INH RQ4 PRN PRN Reason: Shortness of Breath Last Admin: 02/19/19 08:03 Dose: 3 ml Carvedilol (Coreg) 6.25 mg PO Q12 [facility] Last Admin: 02/18/19 21:54 Dose: 6.25 mg Folic Acid (Folic Acid) 1 mg PO DAILY [facility] Last Admin: 02/18/19 08:48 Dose: 1 mg Furosemide (Lasix) 20 mg PO DAILY [facility] Last Admin: 02/18/19 08:48 Dose: 20 mg Insulin Human Regular (Humulin R) 0 units SC [facility]; Protocol Last Admin: 02/19/19 06:59 Dose: 1 units Lactulose (Enulose) 20 gm PO TID [facility] Last Admin: 02/18/19 16:27 Dose: 20 gm Levothyroxine Sodium (Synthroid) 50 mcg PO DAILY@0630 [facility] Last Admin: 02/19/19 06:57 Dose: 50 mcg Pantoprazole Sodium (Protonix Susp) 40 mg PO DAILY [facility] Last Admin: 02/18/19 08:49 Dose: 40 mg Prednisone (Prednisone Tab) 5 mg PO DAILY [facility] Last Admin: 02/18/19 08:49 Dose: 5 mg Promethazine HCl/Dextromethorphan (Phenergan Dm Syrup) 10 ml PO Q6 PRN PRN Reason: Cough Last Admin: 02/18/19 21:59 Dose: 10 ml Spironolactone (Aldactone) 50 mg PO DAILY [facility] Last Admin: 02/18/19 08:47 Dose: 50 mg Tamsulosin HCl (Flomax) 0.4 mg PO DAILY [facility] Last Admin: 02/18/19 08:48 Dose: 0.4 mg Thiamine HCl (Vitamin B1 Tab) 100 mg PO DAILY [facility] Last Admin: 02/18/19 08:50 Dose: 100 mg - Labs Labs: 02/16/19 06:10 02/16/19 05:35 - Constitutional Appears: No Acute Distress - Head Exam Head Exam: ATRAUMATIC, NORMAL INSPECTION, NORMOCEPHALIC - Eye Exam Eye Exam: EOMI, Normal appearance, PERRL Pupil Exam: NORMAL ACCOMODATION, PERRL - ENT Exam ENT Exam: Mucous Membranes Moist, Normal Exam - Neck Exam Neck Exam: Full ROM, Normal Inspection. absent: Lymphadenopathy - Respiratory Exam Respiratory Exam: Clear to Ausculation Bilateral, NORMAL BREATHING PATTERN - Cardiovascular Exam Cardiovascular Exam: REGULAR RHYTHM, +S1, +S2. absent: Murmur - GI/Abdominal Exam GI & Abdominal Exam: Soft, Normal Bowel Sounds. absent: Tenderness - Rectal Exam Rectal Exam: NORMAL INSPECTION - Extremities Exam Extremities Exam: Full ROM, Normal Capillary Refill, Normal Inspection. absent: Joint Swelling, Pedal Edema - Back Exam Back Exam: NORMAL INSPECTION - Neurological Exam Neurological Exam: Alert, Awake, CN II-XII Intact, Normal Gait, Oriented x3 - Psychiatric Exam Psychiatric exam: Normal Affect, Normal Mood - Skin Skin Exam: Dry, Intact, Normal Color, Warm Assessment and Plan - Assessment and Plan (Free Text) Assessment: ASPIRATION PNEUMONIA RESOLVED Plan: NO FURTHER PULMONARY INTERVENTION FOR NOW WILL SIGN OFF CASE AND SEE AGAIN AT YOUR REQUEST
[2019-02-19] MEDS: Pantoprazole 40 mg Susp UD PO SCH (09:18)
--- NOTE | 2019-02-19 15:06 | CP.PCM.PN ---
Subjective - Date & Time of Evaluation Date of Evaluation: 02/19/19 Time of Evaluation: 12:00 - Subjective Subjective: no acute complaints at present, feeling better Objective - Vital Signs/Intake and Output Vital Signs (last 24 hours): Temp Pulse Resp BP Pulse Ox 98.1 F 67 21 96/59 L 100 02/19/19 08:18 02/19/19 09:16 02/19/19 08:18 02/19/19 09:18 02/19/19 08:18 - Medications Medications: Current Medications Acetaminophen (Tylenol 650mg/20.3ml Solution Ud) 650 mg PO Q6 PRN PRN Reason: Temp >100.4 Acetylcysteine (Acetylcysteine 20%) 2 ml IH RBID [facility] Last Admin: 02/19/19 08:03 Dose: 2 ml Albuterol/Ipratropium (Duoneb 3 Mg/0.5 Mg (3 Ml) Ud) 3 ml INH RQ4 PRN PRN Reason: Shortness of Breath Last Admin: 02/19/19 08:03 Dose: 3 ml Carvedilol (Coreg) 6.25 mg PO Q12 [facility] Last Admin: 02/19/19 09:16 Dose: Not Given Folic Acid (Folic Acid) 1 mg PO DAILY [facility] Last Admin: 02/19/19 09:18 Dose: 1 mg Furosemide (Lasix) 20 mg PO DAILY [facility] Last Admin: 02/19/19 09:18 Dose: Not Given Insulin Human Regular (Humulin R) 0 units SC [facility]; Protocol Last Admin: 02/19/19 11:57 Dose: 3 units Lactulose (Enulose) 20 gm PO TID [facility] Last Admin: 02/19/19 13:45 Dose: 20 gm Levothyroxine Sodium (Synthroid) 50 mcg PO DAILY@0630 [facility] Last Admin: 02/19/19 06:57 Dose: 50 mcg Pantoprazole Sodium (Protonix Susp) 40 mg PO DAILY [facility] Last Admin: 02/19/19 09:18 Dose: 40 mg Prednisone (Prednisone Tab) 5 mg PO DAILY [facility] Last Admin: 02/19/19 09:17 Dose: 5 mg Promethazine HCl/Dextromethorphan (Phenergan Dm Syrup) 10 ml PO Q6 PRN PRN Reason: Cough Last Admin: 02/18/19 21:59 Dose: 10 ml Spironolactone (Aldactone) 50 mg PO DAILY [facility] Last Admin: 02/19/19 09:19 Dose: 50 mg Tamsulosin HCl (Flomax) 0.4 mg PO DAILY [facility] Last Admin: 02/19/19 09:17 Dose: 0.4 mg Thiamine HCl (Vitamin B1 Tab) 100 mg PO DAILY [facility] Last Admin: 02/19/19 09:18 Dose: 100 mg - Labs Labs: 02/16/19 06:10 02/16/19 05:35 - Constitutional Appears: Well - Head Exam Head Exam: ATRAUMATIC, NORMAL INSPECTION, NORMOCEPHALIC - Eye Exam Eye Exam: EOMI, Normal appearance, PERRL Pupil Exam: NORMAL ACCOMODATION - ENT Exam ENT Exam: Mucous Membranes Moist, Normal Exam - Neck Exam Neck Exam: Full ROM, Normal Inspection - Respiratory Exam Respiratory Exam: Clear to Ausculation Bilateral, NORMAL BREATHING PATTERN - Cardiovascular Exam Cardiovascular Exam: REGULAR RHYTHM - GI/Abdominal Exam GI & Abdominal Exam: Soft, Normal Bowel Sounds - Rectal Exam Rectal Exam: NORMAL INSPECTION - Exam External exam: NORMAL EXTERNAL EXAM - Extremities Exam Extremities Exam: Full ROM, Normal Capillary Refill, Normal Inspection - Back Exam Back Exam: NORMAL INSPECTION - Neurological Exam Neuro motor strength exam: Left Upper Extremity: 3, Right Upper Extremity: 3, Left Lower Extremity: 3, Right Lower Extremity: 3 - Psychiatric Exam Psychiatric exam: Normal Mood - Skin Skin Exam: Dry, Intact, Normal Color Assessment and Plan (1) Aspiration pneumonia Status: Acute (2) Cirrhosis of liver Status: Acute (3) Coagulopathy Status: Acute - Assessment and Plan (Free Text) Assessment: Hepatic encephalopathy plan for team conference tomorrow and subacute after Dc from acute continue with therapy
[2019-02-20] MEDS: Levothyroxine 50 MCG TAB PO SCH (06:30)
[2019-02-20] MEDS: Insulin Regular 100 units/ml SC SCH ×4 (07:19→21:00)
[2019-02-20] MEDS: Acetylcysteine 20% Inhal Soln (4ml) IH SCH ×2 (07:43→19:14)
[2019-02-20] MEDS: Albuterol-Ipratrop 3 mg / 0.5 (3 ml) UD INH PRN ×2 (07:43→19:14)
[2019-02-20] MEDS: Pantoprazole 40 mg Susp UD PO SCH (08:15)
--- NOTE | 2019-02-20 12:14 | PCM.PSYTMC ---
Acute Rehab Team Conference - - Vital Signs: Vital Signs (Last 8 Hours): Vital Signs 02/20/19 02/20/19 02/20/19 08:11 08:16 08:17 Temperature 97.7 F Pulse Rate 75 73 Respiratory 20 Rate Blood Pressure 104/62 104/62 104/62 O2 Sat by Pulse 98 Oximetry 02/20/19 09:00 Temperature 97.7 F Pulse Rate 75 Respiratory 20 Rate Blood Pressure 104/62 O2 Sat by Pulse Oximetry Pain: 20 - Precautions: Precautions: Fall Prevention, Aspiration - Medications/Other Issues: Comment: None - Consults: Comment: Dr. Mancilla. Dr. Menjivar - Skin: Incision Site: N/A - Toileting: Toileting: Minimal Assistance - Bladder Management: Bladder Pattern: Normal Voiding Method: Urinal Bladder Management: Minimal Assistance - Transfers: Transfers: Minimal Assistance - ADL's: ADL's: Minimal Assistance - Pain Management: Other Intervention:: NONE - Patient/Family Teaching: Other Intervention:: Aspiration Precaution. Honey Thickened Lliquid. Safety. Diabetic teaching - Goals/Time Frame: Comment: Next Team Conference - Provider: Registered Nurse:: Grace [facility] Physical [facility] - Bed Mobility Bed Mobility: Minimal Assistance - Transfers Wheelchair to Mat: Verbal Cues, Contact Guard Sit to Stand: Verbal Cues, Contact Guard - Ambulation Level of Assistance: Verbal Cues, Contact Guard, Minimal Assistance Assistive Devices: Single point cane, Rolling Walker Comment: 150 ft with RW and close S. 75 ft with SPC and CGA /min A - Stair Negotiation Stairs: Level of Assistance: Verbal Cues, Minimal Assistance Number of Stairs: 4 Handrails: Bilateral Stairs: Assistive Devices: Left Handrail, Right Handrail - Standing Balance Static Stand: Supervision - Pain Pain (assessed during therapy session): 0 - Insight/Carryover Insight/Carryover: Good - Patient/Family Education Comment: safety, POC , energy conservation. deep breathing exercises - Assessment/Plan Assessment: Pt is actively participating in PT tx sessions focusing on BLE strengthening exercises, balance and endurance activities, and functional mobility training. pt currently requires min A for bed mobility, CGA for transfers, close S for ambulating with RW and CGA/min A for ambulating with SPC, min A for stair negotiation. Pt will continue to benefit from skilled PT interventions to address deficits, reduce fall risk, and maximize funcitonal independence. Recommend d/c home with home PT and intermittent S from . - Goals Timeframe: 2 weeks Goals: sit < > supine mod I. Sit < > stand transfers mod I. Pt will ambulate 300 ft mod I with least restrcitive AD. Pt will negotiate flight of stairs with close S - Provider Physical Therapist:: Daly Acuna License Number:: [id number] Occupational Therapy - Arousal/Attention/Orientation Level of Consciousness: Awake, Alert Patient Orientation: Person, Place, Time, Appropriate to Age, Appropriate to Situation Assessment Comment: -motivated to engage in all therapy activties--needs cues for pacing - ADL/IADL Self Feeding: Supervision, Verbal Cues, Set-up Help Grooming: Supervision, Verbal Cues, Set-up Help Dressing-Upper Ext: Supervision, Verbal Cues, Set-up Help Dressing-Lower Ext: Verbal Cues, Set-up Help, Minimal Assistance Comment: bathing: TBA - Sitting Balance Static Sitting: Independent without upper extremity support Dynamic Sitting: Reaches across midline, Reaches out of base of support, Reaches within base of support, Requires supervision, Contact Guard Assist Comment: seated unsupported - Transfers Wheelchair to Bed Transfers: Verbal Cues, Set-up Help, Minimal Assistance Toilet Transfers: Verbal Cues, Set-up Help, Minimal Assistance Comment: shower transfer: TBA - Wheelchair Management Level of Assistance: Supervision, Verbal Cues, Set-up Help Distance (ft.): 100 - Upper Extremity Status Right Upper Extremity Comment: AROM WFLs:4-/5 Left Upper Extremity Comment: AROM is WFLs: 4/5 - Pain Pain (assessed during therapy session): 0 - Insight/Carryover Insight/Carryover: Good - Patient/Family Education Comment: -ongoing for adls, transfers/mobility training using adaptive/compensatory strategies, feeding with safety measures/aspiration precautions. -strengthening/endurance activities. -safety/pacing , breathing techniques. -rehab/OT goals, limitations. -pt needs additional training to increase carryover and understanding. -pt's prefers pt to go to [facility] after acute rehab stay sice pt is medically complex - Assessment/Plan Assessment: Pt is a 69 year old bilingual R handed male with dx: hepatic encephalopathy, aspiration pmeumonitis. *Precautions: aspiration precautions(honey thick, finey chopped), monitor vitals, falls, cardiac, self relaese seatbelt/ alarm. Pt limited by impaired AROM in BUEs, trunk, impaired activity tolerance/endurance, impaired safety awareness, impaired respiratory function, impaired BUEs/BLEs strength, gross/fine motor function, impaired knowledge of adaptive/compensatory strategies--which all impact on performance of self care, transfers/mobility and Iadls. Pt will continue to benefit from skilled Occupational Therapy to address functional impairments to maximize performance,safety with adls, transfers/mobility using adaptive/compensatory strategies, +caregiver ed for safe transition home with supervision with proper DMEs. Pt may likely need 3 in one commode, transfer tub bench with back if return home--to further assess as pt progresses. Pt demonstrates improvement in adls, transfers/mobility, AROM in UES and overall endurance. Pt's plan for pt to go to [facility] although plan forwas for pt to GO HOME with INTERMITTENT S. *Goal : Intermittent Supervision for self care, transfers and mobility with assistive device prn - Goals Timeframe: 8 days Comment: *FEEDING: I/setup. *GROOMING: I/setup. *UPPER BODY DRESSING: I/setup. *LOWER BODY DRESSING: Supervision/verbal cues seatup. *BATHING:Min assist/setup seated intermittently. *TOILETING: CG/CS and verbal cues. *TRANS FERS:<->bed, commode, chaiir and otehr surfaces with CG/CS and verbal cues with RW. *W/C PROPULSION/MANAGMENT: 150 feet+ with Mod I, manage B brakes with Mod I - Provider Occupational Therapist:: Sandra Johnston License Number: [id number] Speech Therapy - Consult Information Patient on Program: Yes Medical Diagnosis: Heptic Encephalophy Treatment Diagnosis: Cognitive Communication Deficit. Dysphagia - Assessment Problem Solving Impairment: Moderate Memory Impairment: Moderate Dysphagia/Swallowing Impairment: Moderate - Plan Plan: Continue Dysphagia Therapy, Continue Speech/Language Therapy Frequency: 3-5 times per week Duration: 1 week - Provider Therapist: Beth Goff License Number: [id number] Recreational Therapy - Participation Participation: Participates in Individual and/or Group Sessions, Monitors His/Her Own Leisure Time - Attendance Attendance: 3-5 times per week - Activities Leisure Activities: Cards and Games - Socialization Level of Socialization: Initiates/interacts freely with care givers and peer - Diversional Time Diversional Time: television - Assessment Assessment/Plan: Pt is agreeable to participate in 1:1 and group recreation therapy sessions offered throughout stay on unit. Pt has participated in go-fish card task and required min verbal cues for error recognition and carryover of task rules. Pt did well with tasks and has demonstrated improved arousal level, attention to task, and overall activity tolerance level during this admission unit. Will continue to encourage pt to participate in sessions to improve activity tolerance level and leisure awareness level. Problems Currently Limiting Participation: decrease leisure awareness level, decrease activity tolerance level Goals and Time Frame: Pt will tolerate participating in 30 minutes of recreation therapy session with min A by date of discharge. - Provider Therapist: Ondina Zhang Nutrition - Current Diet Current Diet/Supplement/Feedings: heart healthy moderate consistent CHO mech altered(finely chopped) diet - Appetite Percent Meal Consumed: 50-74% - Assessment/Goals/Time Frame Assessments/Goals/Time Frame: Pt at moderate nutritional risk. goals: 1. Consume 75-100% at mealtime. 2. Good glycemic control:GLU:70-180 mg/dl. 3. Clinical nutrition to follow any upgrades in diet/beverage consistencies recommended by [employer]. Follow-up due on 02/23/2019. [ End ] Case Management - Psychosocial Assessment Support Systems: Bev Hadley ([facility]) - [phone] Psychological Interventions/Needs: Patient is AAO and able to verbalize needs. Discharge Concerns: Patient still requiring close supervision for ambulation with walker. Patient/Family Meeting: CM met with patient and rehab team Intervention/Goal/Outcome: 1. Goal: Supervision 2. Plan: Home with VNS 3. DME needs 4. f/u appts 5. continued emtional support - Discharge Plan Discharge Plan: Home with services Home Services: [facility] - Provider Provider: Raine Zhao License Number: [id number] Rehabilitation Plan - Treatment Plan Treatment Plan: Physical Therapy, Occupational Therapy, Speech, Dietary, Patient/Family Education - Recommendation Recommendation: Physical Therapy, Occupational Therapy, Speech, Dietary, Patient/Family Education - Discharge Plan Discharge to: Home (Dc 15)
--- NOTE | 2019-02-20 12:30 | CP.PCM.PN ---
Subjective - Date & Time of Evaluation Date of Evaluation: 02/20/19 Time of Evaluation: 10:00 - Subjective Subjective: no acute complaints at present Objective - Vital Signs/Intake and Output Vital Signs (last 24 hours): Temp Pulse Resp BP Pulse Ox 97.7 F 75 20 104/62 98 02/20/19 09:00 02/20/19 09:00 02/20/19 09:00 02/20/19 09:00 02/20/19 08:11 - Medications Medications: Current Medications Acetaminophen (Tylenol 650mg/20.3ml Solution Ud) 650 mg PO Q6 PRN PRN Reason: Temp >100.4 Acetylcysteine (Acetylcysteine 20%) 2 ml IH RBID [facility] Last Admin: 02/20/19 07:43 Dose: 2 ml Albuterol/Ipratropium (Duoneb 3 Mg/0.5 Mg (3 Ml) Ud) 3 ml INH RQ4 PRN PRN Reason: Shortness of Breath Last Admin: 02/20/19 07:43 Dose: 3 ml Carvedilol (Coreg) 6.25 mg PO Q12 [facility] Last Admin: 02/20/19 08:16 Dose: 6.25 mg Folic Acid (Folic Acid) 1 mg PO DAILY [facility] Last Admin: 02/19/19 09:18 Dose: 1 mg Furosemide (Lasix) 20 mg PO DAILY [facility] Last Admin: 02/20/19 08:17 Dose: 20 mg Insulin Human Regular (Humulin R) 0 units SC [facility]; Protocol Last Admin: 02/20/19 12:02 Dose: 2 units Lactulose (Enulose) 20 gm PO TID [facility] Last Admin: 02/20/19 12:03 Dose: 20 gm Levothyroxine Sodium (Synthroid) 50 mcg PO DAILY@0630 [facility] Last Admin: 02/20/19 06:30 Dose: 50 mcg Pantoprazole Sodium (Protonix Susp) 40 mg PO DAILY [facility] Last Admin: 02/20/19 08:15 Dose: 40 mg Prednisone (Prednisone Tab) 5 mg PO DAILY [facility] Last Admin: 02/20/19 08:16 Dose: 5 mg Promethazine HCl/Dextromethorphan (Phenergan Dm Syrup) 10 ml PO Q6 PRN PRN Reason: Cough Last Admin: 02/18/19 21:59 Dose: 10 ml Spironolactone (Aldactone) 50 mg PO DAILY [facility] Last Admin: 02/20/19 08:17 Dose: 50 mg Tamsulosin HCl (Flomax) 0.4 mg PO DAILY [facility] Last Admin: 02/20/19 08:17 Dose: 0.4 mg Thiamine HCl (Vitamin B1 Tab) 100 mg PO DAILY [facility] Last Admin: 02/20/19 08:16 Dose: 100 mg - Labs Labs: 02/16/19 06:10 02/16/19 05:35 - Constitutional Appears: Well - Head Exam Head Exam: ATRAUMATIC, NORMAL INSPECTION, NORMOCEPHALIC - Eye Exam Eye Exam: EOMI, Normal appearance, PERRL Pupil Exam: NORMAL ACCOMODATION - ENT Exam ENT Exam: Mucous Membranes Moist, Normal Exam - Neck Exam Neck Exam: Full ROM, Normal Inspection - Respiratory Exam Respiratory Exam: NORMAL BREATHING PATTERN - Cardiovascular Exam Cardiovascular Exam: REGULAR RHYTHM - GI/Abdominal Exam GI & Abdominal Exam: Soft, Normal Bowel Sounds - Rectal Exam Rectal Exam: NORMAL INSPECTION - Exam External exam: NORMAL EXTERNAL EXAM - Extremities Exam Extremities Exam: Full ROM, Normal Capillary Refill - Back Exam Back Exam: NORMAL INSPECTION - Neurological Exam Neuro motor strength exam: Left Upper Extremity: 3, Right Upper Extremity: 3, Left Lower Extremity: 3, Right Lower Extremity: 3 - Psychiatric Exam Psychiatric exam: Normal Affect, Normal Mood - Skin Skin Exam: Dry, Intact Assessment and Plan (1) Aspiration pneumonia Status: Acute (2) Cirrhosis of liver Status: Acute (3) Coagulopathy Status: Acute - Assessment and Plan (Free Text) Assessment: plan for Dc on 15 to home, wants to go to subacute
[2019-02-21] MEDS: Promethazine DM 12.5 mg-30 mg/10 ml Syrup PO PRN (01:18)
[2019-02-21] MEDS: Levothyroxine 50 MCG TAB PO SCH (06:07)
[2019-02-21] MEDS: Insulin Regular 100 units/ml SC SCH ×4 (06:30→21:05)
[2019-02-21] MEDS: Acetylcysteine 20% Inhal Soln (4ml) IH SCH ×2 (07:36→19:16)
[2019-02-21] MEDS: Albuterol-Ipratrop 3 mg / 0.5 (3 ml) UD INH PRN ×2 (07:36→19:16)
[2019-02-21] MEDS: Pantoprazole 40 mg Susp UD PO SCH (08:38)
[2019-02-21 20:13] VITALS: O2SAT 98
[2019-02-22] MEDS: Levothyroxine 50 MCG TAB PO SCH (06:38)
[2019-02-22] MEDS: Insulin Regular 100 units/ml SC SCH ×4 (07:30→21:51)
[2019-02-22] MEDS: Acetylcysteine 20% Inhal Soln (4ml) IH SCH (08:00)
[2019-02-22] MEDS: Pantoprazole 40 mg Susp UD PO SCH (09:07)
--- NOTE | 2019-02-22 11:38 | CP.PCM.PN ---
Subjective - Date & Time of Evaluation Date of Evaluation: 02/22/19 Time of Evaluation: 10:00 - Subjective Subjective: patient with no acute complaints at present Objective - Vital Signs/Intake and Output Vital Signs (last 24 hours): Temp Pulse Resp BP Pulse Ox 97.7 F 71 19 90/60 L 98 02/22/19 08:07 02/22/19 09:09 02/22/19 08:07 02/22/19 09:10 02/22/19 08:07 - Medications Medications: Current Medications Acetaminophen (Tylenol 650mg/20.3ml Solution Ud) 650 mg PO Q6 PRN PRN Reason: Temp >100.4 Acetylcysteine (Acetylcysteine 20%) 2 ml IH RBID [facility] Last Admin: 02/22/19 08:00 Dose: Not Given Albuterol/Ipratropium (Duoneb 3 Mg/0.5 Mg (3 Ml) Ud) 3 ml INH RQ4 PRN PRN Reason: Shortness of Breath Last Admin: 02/21/19 19:16 Dose: 3 ml Carvedilol (Coreg) 6.25 mg PO Q12 [facility] Last Admin: 02/22/19 09:09 Dose: Not Given Folic Acid (Folic Acid) 1 mg PO DAILY [facility] Last Admin: 02/22/19 09:07 Dose: 1 mg Insulin Human Regular (Humulin R) 0 units SC [facility]; Protocol Last Admin: 02/22/19 07:30 Dose: Not Given Lactulose (Enulose) 20 gm PO TID [facility] Last Admin: 02/22/19 09:07 Dose: 20 gm Levothyroxine Sodium (Synthroid) 50 mcg PO DAILY@0630 [facility] Last Admin: 02/22/19 06:38 Dose: 50 mcg Pantoprazole Sodium (Protonix Susp) 40 mg PO DAILY [facility] Last Admin: 02/22/19 09:07 Dose: 40 mg Prednisone (Prednisone Tab) 5 mg PO DAILY [facility] Last Admin: 02/22/19 09:07 Dose: 5 mg Promethazine HCl/Dextromethorphan (Phenergan Dm Syrup) 10 ml PO Q6 PRN PRN Reason: Cough Last Admin: 02/21/19 01:18 Dose: 10 ml Tamsulosin HCl (Flomax) 0.4 mg PO DAILY [facility] Last Admin: 02/21/19 08:37 Dose: 0.4 mg Thiamine HCl (Vitamin B1 Tab) 100 mg PO DAILY [facility] Last Admin: 02/22/19 09:07 Dose: 100 mg - Labs Labs: 02/16/19 06:10 02/16/19 05:35 - Constitutional Appears: Well - Head Exam Head Exam: ATRAUMATIC, NORMAL INSPECTION, NORMOCEPHALIC - Eye Exam Eye Exam: EOMI, Normal appearance, PERRL Pupil Exam: NORMAL ACCOMODATION - ENT Exam ENT Exam: Mucous Membranes Moist, Normal Exam - Neck Exam Neck Exam: Full ROM, Normal Inspection - Respiratory Exam Respiratory Exam: NORMAL BREATHING PATTERN - Cardiovascular Exam Cardiovascular Exam: REGULAR RHYTHM - GI/Abdominal Exam GI & Abdominal Exam: Soft, Normal Bowel Sounds - Rectal Exam Rectal Exam: NORMAL INSPECTION - Exam External exam: NORMAL EXTERNAL EXAM - Extremities Exam Extremities Exam: Full ROM, Normal Capillary Refill, Normal Inspection, Tenderness - Back Exam Back Exam: NORMAL INSPECTION - Psychiatric Exam Psychiatric exam: Normal Affect, Normal Mood - Skin Skin Exam: Intact Assessment and Plan (1) Aspiration pneumonia Status: Acute (2) Cirrhosis of liver Status: Acute (3) Coagulopathy Status: Acute - Assessment and Plan (Free Text) Assessment: plan for dischrage to [facility]
[2019-02-22] MEDS: Albuterol-Ipratrop 3 mg / 0.5 (3 ml) UD INH PRN (11:41)
--- NOTE | 2019-02-22 15:10 | RAD ---
Date of service: 02/22/2019 HISTORY: congestion COMPARISON: 02/18/2019. TECHNIQUE: Chest PA and lateral views FINDINGS: LUNGS: No active pulmonary disease. PLEURA: No significant pleural effusion identified. No pneumothorax apparent. CARDIOVASCULAR: No aortic atherosclerotic calcification present. PICC line in satisfactory position unchanged. Normal cardiac size. No pulmonary vascular congestion. OSSEOUS STRUCTURES: No significant abnormalities. VISUALIZED UPPER ABDOMEN: Normal. OTHER FINDINGS: None. IMPRESSION: No active disease. No significant interval change compared to the prior examination(s).
[2019-02-22 21:03] VITALS: BP 108/61; PULSE 77; RESP 20; TEMP 97.5
--- NOTE | 2019-02-23 13:52 | CP.PCM.HP ---
Past Patient History - Infectious Disease Hx of Infectious Diseases: None - Past Medical History & Family History Past Medical History?: Yes - Past Social History Smoking Status: Never Smoked - CARDIAC Hx Cardiac Disorders: Yes Hx Hypercholesterolemia: Yes Hx Hypertension: Yes - PULMONARY Hx Respiratory Disorders: No Other/Comment: h/o acute respiratory failure, bacterial pneumonia. - NEUROLOGICAL Hx Neurological Disorder: No - HEENT Hx HEENT Problems: Yes Hx Cataracts: Yes - RENAL Hx Renal Failure: Yes - ENDOCRINE/METABOLIC Hx Diabetes Mellitus Type 2: Yes - HEMATOLOGICAL/ONCOLOGICAL Hx Blood Disorders: Yes Hx Cancer: Yes - INTEGUMENTARY Hx Dermatological Problems: No - MUSCULOSKELETAL/RHEUMATOLOGICAL Hx Musculoskeletal Disorders: No Hx Falls: No - GASTROINTESTINAL Hx Gastrointestinal Disorders: Yes Hx Gastritis: Yes - GENITOURINARY/GYNECOLOGICAL Hx Genitourinary Disorders: Yes Hx Prostate Problems: Yes - PSYCHIATRIC Hx Psychophysiologic Disorder: No Hx Substance Use: No - SURGICAL HISTORY Hx Surgeries: No Hx Mastectomy: No - ANESTHESIA Hx Anesthesia: Yes Hx Anesthesia Reactions: Yes (per "coma") Hx Malignant Hyperthermia: No Meds Home Medications: Home Medication List Medication Instructions Recorded Confirmed Type Carvedilol [Coreg] 3.125 mg PO Q12 tab 02/22/19 Rx Furosemide [Lasix] 20 mg PO DAILY tab 02/22/19 Rx Insulin Human Regular [HumuLIN R] 0 units SC [facility]CHS ml 02/22/19 Rx Spironolactone [Aldactone] 50 mg PO DAILY tab 02/22/19 Rx Allergies/Adverse Reactions: Allergies Allergy/AdvReac Type Severity Reaction Status Date / Time No Known Allergies Allergy Verified 02/01/19 20:20 Results - Vital Signs Recent Vital Signs: Last Vital Signs Temp 97.5 F L 02/22/19 22:35 Pulse 77 02/22/19 22:35 Resp 20 02/22/19 22:35 BP 108/61 02/22/19 22:35 Pulse Ox 98 02/22/19 22:35 - Labs Result Diagrams: 02/16/19 06:10 02/16/19 05:35 Labs: Laboratory Results - last 24 hr 02/22/19 02/22/19 16:11 21:10 POC Glucose (mg/dL) 268 H 219 H
--- NOTE | 2019-02-23 13:53 | CP.PCM.PN ---
Subjective - Date & Time of Evaluation Date of Evaluation: 02/17/19 Objective - Vital Signs/Intake and Output Vital Signs (last 24 hours): Temp Pulse Resp BP Pulse Ox 97.5 F L 77 20 108/61 98 02/22/19 22:35 02/22/19 22:35 02/22/19 22:35 02/22/19 22:35 02/22/19 22:35 - Labs Labs: 02/16/19 06:10 02/16/19 05:35
--- NOTE | 2019-02-23 13:54 | CP.PCM.PN ---
Subjective - Date & Time of Evaluation Date of Evaluation: 02/19/19 Objective - Vital Signs/Intake and Output Vital Signs (last 24 hours): Temp Pulse Resp BP Pulse Ox 97.5 F L 77 20 108/61 98 02/22/19 22:35 02/22/19 22:35 02/22/19 22:35 02/22/19 22:35 02/22/19 22:35 - Labs Labs: 02/16/19 06:10 02/16/19 05:35
--- NOTE | 2019-02-23 13:54 | CP.PCM.PN ---
Subjective - Date & Time of Evaluation Date of Evaluation: 02/18/19 Objective - Vital Signs/Intake and Output Vital Signs (last 24 hours): Temp Pulse Resp BP Pulse Ox 97.5 F L 77 20 108/61 98 02/22/19 22:35 02/22/19 22:35 02/22/19 22:35 02/22/19 22:35 02/22/19 22:35 - Labs Labs: 02/16/19 06:10 02/16/19 05:35
--- NOTE | 2019-02-23 13:55 | CP.PCM.PN ---
Subjective - Date & Time of Evaluation Date of Evaluation: 02/21/19 Objective - Vital Signs/Intake and Output Vital Signs (last 24 hours): Temp Pulse Resp BP Pulse Ox 97.5 F L 77 20 108/61 98 02/22/19 22:35 02/22/19 22:35 02/22/19 22:35 02/22/19 22:35 02/22/19 22:35 - Labs Labs: 02/16/19 06:10 02/16/19 05:35
--- NOTE | 2019-02-23 13:55 | CP.PCM.PN ---
Subjective - Date & Time of Evaluation Date of Evaluation: 02/20/19 Objective - Vital Signs/Intake and Output Vital Signs (last 24 hours): Temp Pulse Resp BP Pulse Ox 97.5 F L 77 20 108/61 98 02/22/19 22:35 02/22/19 22:35 02/22/19 22:35 02/22/19 22:35 02/22/19 22:35 - Labs Labs: 02/16/19 06:10 02/16/19 05:35
--- NOTE | 2019-02-23 13:56 | CP.PCM.DIS ---
Provider - Provider Date of Admission: 02/15/19 14:47 Attending physician: Kiana Rowe MD Consults: 02/15/19 14:49 Physiatry Consult Routine Comment: Consulting Provider: [place] Trotter Consulting Physician: [place] Trotter Reason for Consult: physiiatry 02/15/19 14:53 Case Management Referral Routine Comment: Physician Instructions: Reason For Exam: evaluation and treatment Reason for Referral: Discharge Planning 02/16/19 09:01 Pulmonology Consult Routine Comment: pulmonology Consulting Provider: Edwar Mancilla I Consulting Physician: Edwar Mancilla I Reason for Consult: pulmonology 02/16/19 09:02 Infectious Disease Consult Routine Comment: infectios Consulting Provider: Shaggy Menjivar Consulting Physician: Shaggy Menjivar Reason for Consult: infectious md Time Spent in preparation of Discharge (in minutes): 25 Hospital Course - Lab Results Lab Results: Most Recent Lab Values WBC 8.2 K/uL (4.8-10.8) 02/16/19 06:10 RBC 2.31 Mil/uL (4.40-5.90) L 02/16/19 06:10 Hgb 8.8 g/dL (12.0-18.0) L 02/16/19 06:10 Hct 25.9 % (35.0-51.0) L 02/16/19 06:10 MCV 112.0 fl (80.0-94.0) H 02/16/19 06:10 MCH 38.2 pg (27.0-31.0) H 02/16/19 06:10 MCHC 34.1 g/dL (33.0-37.0) 02/16/19 06:10 RDW 14.7 % (11.5-14.5) H 02/16/19 06:10 Plt Count 67 K/uL (130-400) L 02/16/19 06:10 Sodium 132 mmol/l (132-148) 02/16/19 05:35 Potassium 4.9 MMOL/L (3.6-5.0) 02/16/19 05:35 Chloride 101 mmol/L (98-107) 02/16/19 05:35 Carbon Dioxide 30 mmol/L (22-30) 02/16/19 05:35 Anion Gap 6 (10-20) L 02/16/19 05:35 BUN 15 mg/dl (9-20) 02/16/19 05:35 Creatinine 0.6 mg/dl (0.8-1.5) L 02/16/19 05:35 Est GFR ( Amer) > 60 02/16/19 05:35 Est GFR (Non-Af Amer) > 60 02/16/19 05:35 POC Glucose (mg/dL) 219 mg/dL (65-110) H 02/22/19 21:10 Random Glucose 219 mg/dL (75-110) H 02/16/19 05:35 Calcium 7.9 mg/dL (8.4-10.2) L 02/16/19 05:35 Discharge Exam - Head Exam Head Exam: ATRAUMATIC, NORMAL INSPECTION, NORMOCEPHALIC Discharge Plan - Follow Up Plan Condition: GOOD Disposition: REHAB FACILITY/REHAB UNIT Instructions: Hepatic Encephalopathy (DC)
== END 2019-02-22 22:41 | DRG 178 ==
PROVIDERS: ADMIT Internal Medicine; ATTEND Internal Medicine
PROC: F07Z9FZ Gait Training/Functional Ambulation Treatment using Assistive, Adaptive, Supportive or Protective Equipment (ICD-10-PCS; principal; 2019-02-15)
PROC: F08Z4FZ Home Management Treatment using Assistive, Adaptive, Supportive or Protective Equipment (ICD-10-PCS; 2019-02-15)
PROC: F07M6FZ Therapeutic Exercise Treatment of Musculoskeletal System - Whole Body using Assistive, Adaptive, Supportive or Protective Equipment (ICD-10-PCS; 2019-02-16)
DX: J69.0 Pneumonitis due to inhalation of food and vomit (principal); D68.9 Coagulation defect, unspecified; C22.0 Liver cell carcinoma; K70.30 Alcoholic cirrhosis of liver without ascites; F10.21 Alcohol dependence, in remission; E03.9 Hypothyroidism, unspecified; E11.9 Type 2 diabetes mellitus without complications; I10 Essential (primary) hypertension; E78.00 Pure hypercholesterolemia, unspecified; Z79.4 Long term (current) use of insulin

== ENCOUNTER 2019-02-26 15:48 | Inpatient (IN) | payer MEDICAID, MEDICARE ==
[2019-02-26 15:49] VITALS: BMI 33.6
[2019-02-26] MEDS ORDERED: Sodium Chloride 0.9% 1,000 ML IV STA ×2 (16:24)
[2019-02-26 16:39] LABS: BASO # 0.1 K/uL (0.0-0.2); BASO % 0.9 % (0.0-2.0); EOS # 0.3 K/uL (0.0-0.7); EOS % 4.5 % (0.0-4.0); HEMOGLOBIN 10.1 g/dL (12.0-18.0); LYMPH % 17.8 % (20.0-40.0); MEAN CELL VOLUME 112.1 fl (80.0-94.0); MEAN CORPUSCULAR HEMOGLOBIN 38.1 pg (27.0-31.0); MEAN CORPUSCULAR HGB CONC 33.9 g/dL (33.0-37.0); MEAN PLATELET VOLUME 9.6 fl (7.2-11.7); MONO # 0.7 K/uL (0.0-0.8); MONO % 12.4 % (0.0-10.0); NEUT # 3.7 K/uL (1.8-7.0); NEUT % 64.4 % (50.0-75.0); NRBC % 0.1 % (0.0-0.0); RBC 2.66 Mil/uL (4.40-5.90); RED CELL DISTRIBUTION WIDTH 14.4 % (11.5-14.5); WHITE BLOOD COUNT 5.8 K/uL (4.8-10.8)
[2019-02-26 16:43] LABS: VENOUS BLOOD GAS BASE EXCESS -0.2 mmol/L (0.0-2.0); VENOUS BLOOD GAS PCO2 50 mmHg (40-60); VENOUS BLOOD GAS PO2 38 mm/Hg (30-55); VENOUS BLOOD PH 7.33 (7.32-7.43)
[2019-02-26 16:51] LABS: INR 1.3; PROTHROMBIN TIME 15.2 Seconds (9.8-13.1)
--- NOTE | 2019-02-26 16:52 | RAD ---
Date of service: 02/26/2019 HISTORY: possible admission COMPARISON: Chest radiographs 02/22/2019. TECHNIQUE: 1 view obtained. FINDINGS: LUNGS: Limited linear atelectasis left base. No alveolitis bilaterally. PLEURA: No significant pleural effusion identified, no pneumothorax apparent. CARDIOVASCULAR: No aortic atherosclerotic calcification present. Normal cardiac size. No pulmonary vascular congestion. Stable left upper extremity PICC insertion. OSSEOUS STRUCTURES: No significant abnormalities. VISUALIZED UPPER ABDOMEN: Normal. OTHER FINDINGS: None. IMPRESSION: No acute infiltrate the limited linear atelectasis is again noted at the left base. Stable left PICC insertion. No acute cardiovascular disease appreciable.
[2019-02-26 16:54] LABS: PARTIAL THROMBOPLASTIN TIME 31.9 Seconds (25.6-37.1)
[2019-02-26 16:56] LABS: ALB/GLOB RATIO 0.7 (1.0-2.1); ALBUMIN 2.7 g/dL (3.5-5.0); ALT/SGPT 60 U/L (21-72); AST/SGOT 70 U/L (17-59); BLOOD UREA NITROGEN 21 mg/dl (9-20); CALCIUM 8.6 mg/dL (8.4-10.2); GFR NON-AFRICAN AMERICAN > 60
[2019-02-26 17:02] LABS: B-TYPE NATRIURETIC PEPTIDE 95.7 pg/ml (0-900)
--- NOTE | 2019-02-26 17:09 | ED PDOC ---
HPI: SOB/CHF/COPD Time Seen by Provider: 02/26/19 16:17 Chief Complaint (Nursing): Respiratory Distress Chief Complaint (Provider): Respiratory Distress History Per: Patient, Other (female diesel engine mechanic apprentice) History/Exam Limitations: clinical condition (shortness of breath unclear if baseline) Onset/Duration Of Symptoms: Hrs Additional Complaint(s): 69 year old male accompanied by female diesel engine mechanic apprentice presents to ED with "possible pneumonia." Patient is an [facility] resident who was short of breath and having difficulty speaking during exam, it is unclear whether this is the patient's baseline or underlying dementia. The woman with the patient states he always sounds like this, but this visit may sound a little worse. Patient denies fever, vomiting, or cough. An attempt will be made to obtain more information from the long term as the patient and diesel engine mechanic apprentice are providing limited hist ory. PMD: Kiana Moreau Seman Past Medical History Reviewed: Historical Data, Nursing Documentation, Vital Signs Vital Signs: Last Vital Signs Temp 97.5 F L 02/26/19 15:51 Pulse 95 H 02/26/19 15:51 Resp 20 02/26/19 15:51 BP 107/71 02/26/19 15:51 Pulse Ox 100 02/26/19 16:00 Primary Care Provider: Kiana Rowe - Medical History PMH: Diabetes, Gastritis, HTN, Hypercholesterolemia, Chronic Kidney Disease ( denies hx) Denies: Depression, Deep Vein Thrombosis, HIV - Surgical History Surgical History: Denies: Pacemaker - Family History Family History: States: Unknown Family Hx - Living Arrangements Living Arrangements: Longterm/Assist Lv ([facility]) - Social History Current smoker - smoking cessation education provided: No Alcohol: None Drugs: Denies - Immunization History Hx Tetanus Toxoid Vaccination: No Hx Influenza Vaccination: No Hx Pneumococcal Vaccination: No - Home Medications Home Medications: Ambulatory Orders Medication Instructions Recorded Albuterol 0.083% [Albuterol 0.083% 3 ml IH BID 02/01/19 Inhal Mana (2.5 mg/3 ml) UD] Folic Acid 1 mg PO DAILY 02/01/19 Levothyroxine [Synthroid] 50 mcg PO DAILY 02/01/19 Pantoprazole [Protonix Susp] 40 mg PO DAILY 02/01/19 Tamsulosin [Flomax] 0.4 mg PO DAILY 02/01/19 Thiamine HCl [Vitamin B-1] 100 mg PO DAILY 02/01/19 Lactulose [Enulose] 20 gm PO TID udc 02/15/19 Promethazine DM [Phenergan DM 10 ml PO Q6 PRN 02/15/19 Syrup] Carvedilol [Coreg] 3.125 mg PO Q12 tab 02/22/19 Furosemide [Lasix] 20 mg PO DAILY tab 02/22/19 Insulin Human Regular [HumuLIN R] 0 units SC ACHS ml 02/22/19 Spironolactone [Aldactone] 50 mg PO DAILY tab 02/22/19 - Allergies Allergies/Adverse Reactions: Allergies Allergy/AdvReac Type Severity Reaction Status Date / Time No Known Allergies Allergy Verified 02/01/19 20:20 Review of Systems ROS Statement: Except As Marked, All Systems Reviewed And Found Negative Constitutional: Negative for: Fever Respiratory: Positive for: Shortness of Breath. Negative for: Cough Gastrointestinal: Negative for: Vomiting Physical Exam - Reviewed Nursing Documentation Reviewed: Yes Vital Signs Reviewed: Yes - Physical Exam Appears: Positive for: No Acute Distress Head Exam: Positive for: ATRAUMATIC, NORMOCEPHALIC Skin: Positive for: Normal Color, Warm, Dry Eye Exam: Positive for: EOMI, Normal appearance, PERRL ENT: Positive for: Normal ENT Inspection Neck: Positive for: Normal, Supple Cardiovascular/Chest: Positive for: Tachycardia (heartrate fluctuating from 97 to 110) Respiratory: Positive for: Crackles (bilateral) Gastrointestinal/Abdominal: Negative for: Tenderness Back: Positive for: Normal Inspection. Negative for: L CVA Tenderness, R CVA Tenderness, Vertebral Tenderness Extremity: Positive for: Normal ROM. Negative for: Pedal Edema, Deformity, Swelling Neurological/Psych: Positive for: Alert, Oriented (x3). Negative for: Motor/Sensory Deficits - Laboratory Results Result Diagrams: 02/26/19 16:35 02/26/19 16:35 Lab Results: pO2 38 mm/Hg (30-55) 02/26/19 16:36 VBG pH 7.33 (7.32-7.43) 02/26/19 16:36 VBG pCO2 50 mmHg (40-60) 02/26/19 16:36 VBG HCO3 24.0 mmol/L 02/26/19 16:36 VBG Total CO2 27.9 mmol/L (22-28) 02/26/19 16:36 VBG O2 Sat (Calc) 72.4 % (40-65) H 02/26/19 16:36 VBG Base Excess -0.2 mmol/L (0.0-2.0) L 02/26/19 16:36 VBG Potassium 5.1 mmol/L (3.6-5.2) 02/26/19 16:36 Sodium 135.0 mmol/L (132-148) 02/26/19 16:36 Chloride 105.0 mmol/L (98-107) 02/26/19 16:36 Glucose 256 mg/dL (75-110) H 02/26/19 16:36 Lactate 1.7 mmol/L (0.7-2.1) 02/26/19 16:36 FiO2 21.0 % 02/26/19 16:36 PT 15.2 Seconds (9.8-13.1) H 02/26/19 16:35 INR 1.3 02/26/19 16:35 APTT 31.9 Seconds (25.6-37.1) 02/26/19 16:35 Troponin I < 0.0120 ng/mL (0.00-0.120) 02/26/19 16:35 NT-Pro-B Natriuret Pep 95.7 pg/ml (0-900) 02/26/19 16:35 Total Bilirubin 1.4 mg/dl (0.2-1.3) H 02/26/19 16:35 AST 70 U/L (17-59) H D 02/26/19 16:35 ALT 60 U/L (21-72) 02/26/19 16:35 Alkaline Phosphatase 232 U/L (38-126) H D 02/26/19 16:35 Total Protein 6.6 G/DL (6.3-8.2) 02/26/19 16:35 Albumin 2.7 g/dL (3.5-5.0) L D 02/26/19 16:35 Globulin 3.9 gm/dL (2.2-3.9) 02/26/19 16:35 Albumin/Globulin Ratio 0.7 (1.0-2.1) L 02/26/19 16:35 - ECG O2 Sat by Pulse Oximetry: 100 (RA) Pulse Ox Interpretation: Normal Medical Decision Making Medical Decision Making: Time: 1699 Initial Impression: respiratory distress DDx includes: questionable pneumonia vs COPD vs CHF Initial Plan: --Labs with sepsis workup --IV Fluid --CXR --Respiratory treatments --Antibiotics most likely admission 1850 Patient not meeting any sepsis criteria however based on symptoms and recent hospitalization will treat for hospital required pneumonia starting on the . Discussed with Dr Rowe and patient will be admitted to telemetry. Scribe Attestation: Documented by Sinan Leiva acting as a scribe for Yun Plascencia MD. Provider Scribe Attestation: All medical record entries made by the Scribe were at my direction and personally dictated by me. I have reviewed the chart and agree that the record accurately reflects my personal performance of the history, physical exam, medical decision making, and the department course for this patient. I have also personally directed, reviewed, and agree with the discharge instructions and disposition. Disposition - Clinical Impression Clinical Impression: Hospital-acquired bacterial pneumonia - Disposition Disposition Time: 18:51 Condition: GUARDED
[2019-02-26] MEDS ORDERED: Azithromycin 500 MG in Sodium Chloride 0.9% 250 ML IVPB STA (18:10)
[2019-02-26] MEDS ORDERED: Azithromycin 500 MG IV IVPB ONE (18:18)
[2019-02-26] MEDS ORDERED: Albuterol-Ipratrop 3 mg / 0.5 (3 ml) UD INH STA (18:27)
[2019-02-26] MEDS ORDERED: Cefepime 2 GM in Sodium Chloride 0.9% 100 ML IVPB STA (18:54)
[2019-02-26 18:57] LABS: SQUAMOUS EPITHIAL 1 /hpf (0-5); URINE BACTERIA RARE (<OCC); URINE BILIRUBIN NEGATIVE (NEGATIVE); URINE BLOOD NEGATIVE (NEGATIVE); URINE CLARITY SLIGHTY-CLOUDY (Clear); URINE COLOR YELLOW (YELLOW); URINE GLUCOSE (UA) NEG (NEGATIVE); URINE LEUKOCYTE ESTERASE NEG Leu/uL (Negative); URINE PROTEIN NEGATIVE (NEGATIVE); URINE UROBILINOGEN 0.2-1.0 mg/dL (0.2-1.0)
[2019-02-26] MEDS ORDERED: Albuterol-Ipratrop 3 mg / 0.5 (3 ml) UD ONE (19:03)
[2019-02-26 19:44] LABS: VENOUS BLOOD GAS PCO2 42 mmHg (40-60); VENOUS BLOOD GAS PO2 76 mm/Hg (30-55); VENOUS BLOOD PH 7.34 (7.32-7.43)
[2019-02-27] MEDS ORDERED: Promethazine DM 12.5 mg-30 mg/10 ml Syrup PO PRN (05:36)
[2019-02-27] MEDS: Albuterol-Ipratrop 3 mg / 0.5 (3 ml) UD INH PRN ×2 (06:09→08:24)
[2019-02-27] MEDS ORDERED: Levothyroxine 50 MCG TAB PO SCH (06:30)
[2019-02-27] MEDS: Cefepime 1 GM in Sodium Chloride 0.9% 100 ML IVPB SCH ×2 (08:42→21:55)
[2019-02-27] MEDS: Insulin Regular 100 units/ml SC SCH ×4 (08:43→21:57)
[2019-02-27] MEDS ORDERED: Sodium Chloride 3% for Inhalation 4 ML VIAL.NEB IH PRN (08:51)
[2019-02-27] MEDS ORDERED: Enoxaparin 40 mg Syringe SC SCH (09:00)
[2019-02-27] MEDS ORDERED: Azithromycin 500 MG in Sodium Chloride 0.9% 250 ML IVPB SCH (09:00)
[2019-02-27] MEDS ORDERED: methylPREDNISolone 60 MG in Sodium Chloride 0.9% 50 ML IVPB SCH (09:00)
[2019-02-27] MEDS ORDERED: Pantoprazole 40 mg Susp UD PO SCH (09:00)
--- NOTE | 2019-02-27 11:53 | CARD ---
APPROVED REPORT Date of service: 02/26/2019 EKG Measurement Heart [id number] NC [id number] <Conclusion> Normal sinus rhythm Normal ECG
[2019-02-27 11:59] VITALS: O2SAT 100
[2019-02-27] MEDS: Albuterol-Ipratrop 3 mg / 0.5 (3 ml) UD INH SCH ×4 (14:03→23:09)
[2019-02-27] MEDS ORDERED: Racepinephrine 2.25% Inhal Soln 0.5 ML UD INH ONE (18:42)
[2019-02-27 19:22] LABS: ABG ALLEN TEST YES; ARTERIAL BLOOD GAS O2 SAT 100.3 % (95-98); ARTERIAL BLOOD GAS PCO2 43 mm/Hg (35-45); ARTERIAL BLOOD GAS PH 7.36 (7.35-7.45); ARTERIAL BLOOD GAS PO2 235 mm/Hg (80-100); ARTERIAL BLOOD GAS TCO2 25.6 mmol/L (22-28)
[2019-02-27] MEDS ORDERED: Insulin Regular 100 units/ml SC STA (21:52)
[2019-02-27] MEDS ORDERED: Sodium Chloride 0.9% 1,000 ML IV SCH (22:00)
--- NOTE | 2019-02-27 22:09 | CP.CCUPN ---
CCU Subjective - Physician Review Subjective (Free Text): ICU transfer from [facility] Tele: 69M , well known to ICU medical team from previous stay and mgmt for prolonged hepatic Encephalopathy. H/o non-resectable HCC, Acute hypoxemic Resp Failure 2' Bilateral pneumonia, orally extubated from MV (intubated from 01/06/19) on 01/20/19. Afterwards, ICU course uneventful with improvement in deconditioning and accepted to Rehab. He was admitted for 8 day stay on 02/07/19 for aspiration pneumonia, but did not require MV support. Re-admitted to Rehab again for 1 week and discharged to detention. 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 Deemed high risk for tracheal closure and transferred to ICU for further mgmt and awaiting transfer to tertiary center for definitive mgmt. He is presently sitting up and reclined in bed, no obvious distress observed, nor tachypnea, SPO2 100% on 4LPM NC, denies any throat discomfort, SOB at bed rest, but voice is hoarse and upper airway rhonchi are plainly audible, No drooling noted, and denies any dysphagia. CT Neck and chest revealed tracheal narrowing of approx 3 cm length at the sub- thyroid level. So far, has rec'd repetitive doses of IV steroids, and just given a neb treatment with racemic epinephrine. Afebrile, 97-98F, BP 120/60, HR 100, RR 20, 100% NC ROS: No other pertinent negs or positive on 10+ system review Other PMSFH: All other Nursing and physician documentation reviewed to date; no new pertinent info noted relevant to current medical problems. EXAM- HEENT: no icterus, pupils equal, 3 mm and reactive, no gaze preference, no nystagmus NECK: no visible JVD, supple, carotids equal upstroke bilat/no bruits CHEST: decreased BS bases, no wheezes audible HEART: regular, distant, S1S2, no murmur audible, no rubs. ABD: soft, no increased distention, no fluid wave, no focal tenderness, BS hypoactive EXT: trace to 1+ edema; no calf tenderness or palpable cords, distal pulses intact and symmetrical NEURO: No focal motor deficits SKIN: no rashes LABS: WBC= 5.8 HGB= 10.1 PLTs = 79K INR = 1.3, PTT normal -NO chemistry results available, none ordered from admission. Na= K= 5.2 Cl= HCO3= BUN/Cr= BS= 270 IMPRESSION / MAJOR PROBLEMS NOW: 1. 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 2. Acute resp insufficiency 2' #1 and persistent LLL pneumonia 3. h/o HCC with metabolic Encephalopathy 4. Chronic Disease Anemia 5. Chronic Thrombocytopenia PLAN: 1. Arrangements in progress for transfer to [facility] [place] pending ICU bed availability. 2. IV steroids, racemic Epi and Duoneb treatments, PPi therapy, empiric abx coverage, humidied oxygen to avoid mucous plugging, monitor SPO2, ETCO2 levels. 3. Thoracic Surg eval requested by ENT. 4. Obtain chemistry bloodwork. CCU Objective - Medications Active Medications: Active Medications Generic Name Dose Route Start Last Admin Trade Name Freq PRN Reason Stop Dose Admin Albuterol/Ipratropium 3 ml 02/27/19 12:00 02/27/19 19:28 Duoneb 3 Mg/0.5 Mg (3 Ml) Ud INH 3 ml RQ4 JOANNA Administration Carvedilol 3.125 mg 02/27/19 09:00 02/27/19 21:34 Coreg PO Not Given Q12 JOANNA Enoxaparin Sodium 40 mg 02/27/19 09:00 02/27/19 08:42 Lovenox SC 40 mg DAILY JOANNA Administration Protocol Folic Acid 1 mg 02/27/19 09:00 02/27/19 08:42 Folic Acid PO 1 mg DAILY JOANNA Administration Furosemide 20 mg 02/27/19 09:00 02/27/19 08:39 Lasix PO 20 mg DAILY JOANNA Administration Cefepime HCl 1 gm/ Sodium 100 mls @ 100 mls/hr 02/27/19 09:00 02/27/19 21:55 Chloride IVPB 100 mls/hr Q12 JOANNA Administration Protocol Azithromycin 500 mg/ Sodium 250 mls @ 250 mls/hr 02/27/19 09:00 02/27/19 08:34 Chloride IVPB 250 mls/hr DAILY JOANNA Administration Protocol Sodium Chloride 1,000 mls @ 60 mls/hr 02/27/19 22:00 Sodium Chloride 0.9% IV 02/28/19 21:59 .[id number] [facility] Insulin Human Regular 0 units 02/27/19 07:30 02/27/19 21:57 Humulin R SC 3 units ACHS JOANNA Administration Protocol Lactulose 20 gm 02/27/19 09:00 02/27/19 16:56 Enulose PO 20 gm TID JOANNA Administration Levothyroxine Sodium 50 mcg 02/27/19 06:30 02/27/19 06:03 Synthroid PO 50 mcg DAILY@0630 JOANNA Administration Methylprednisolone 100 mg 02/28/19 01:00 Solu-Medrol IV Q8 JOANNA Pantoprazole Sodium 40 mg 02/27/19 09:00 02/27/19 08:41 Protonix Susp PO 40 mg DAILY JOANNA Administration Promethazine HCl/Dextromethorphan 10 ml 02/27/19 05:36 02/27/19 08:39 Phenergan Dm Syrup PO 10 ml Q6 PRN Administration Cough Spironolactone 50 mg 02/27/19 09:00 02/27/19 08:41 Aldactone PO 50 mg DAILY JOANNA Administration Tamsulosin HCl 0.4 mg 02/27/19 09:00 02/27/19 08:42 Flomax PO 0.4 mg DAILY JOANNA Administration Thiamine HCl 100 mg 02/27/19 09:00 02/27/19 08:39 Vitamin B1 Tab PO 100 mg DAILY JOANNA Administration - Patient Studies Lab Studies: Microbiology Studies 02/26/19 18:18 Blood Culture - Preliminary Blood-Venous NO GROWTH AFTER 24 HOURS Lab Studies 02/27/19 02/27/19 02/27/19 Range/Units 19:16 16:06 10:41 pCO2 43 (35-45) mm/Hg pO2 235 H (80-100) mm/Hg HCO3 24.0 (21-28) mmol/L ABG pH 7.36 (7.35-7.45) ABG Total CO2 25.6 (22-28) mmol/L ABG O2 Saturation 100.3 H (95-98) % ABG Base Excess -1.3 (-2.0-3.0) mmol/L Lupillo Test Yes ABG Potassium 5.2 (3.6-5.2) mmol/L A-a O2 Difference -4.0 mm/Hg Sodium 135.0 (132-148) mmol/L Chloride 108.0 H (98-107) mmol/L Glucose 421 H* D (75-110) mg/dL Lactate 2.4 H (0.7-2.1) mmol/L FiO2 40.0 % Blood Gas Comments Lac=2.4 Crit Value Called To amalia Hussein Crit Value Called By 22 Crit Value Read Back Y Blood Gas Notified Time 1921 POC Glucose (mg/dL) 270 H 314 H (65-110) mg/dL Arterial Blood Potassium 5.2 (3.6-5.2) mmol/L 02/27/19 Range/Units 05:28 pCO2 (35-45) mm/Hg pO2 (80-100) mm/Hg HCO3 (21-28) mmol/L ABG pH (7.35-7.45) ABG Total CO2 (22-28) mmol/L ABG O2 Saturation (95-98) % ABG Base Excess (-2.0-3.0) mmol/L Lupillo Test ABG Potassium (3.6-5.2) mmol/L A-a O2 Difference mm/Hg Sodium (132-148) mmol/L Chloride (98-107) mmol/L Glucose (75-110) mg/dL Lactate (0.7-2.1) mmol/L FiO2 % Blood Gas Comments Crit Value Called To Crit Value Called By Crit Value Read Back Blood Gas Notified Time POC Glucose (mg/dL) 96 (65-110) mg/dL Arterial Blood Potassium (3.6-5.2) mmol/L Laboratory Results - last 24 hr 02/27/19 02/27/19 02/27/19 05:28 10:41 16:06 pCO2 pO2 HCO3 ABG pH ABG Total CO2 ABG O2 Saturation ABG Base Excess Lupillo Test ABG Potassium A-a O2 Difference Sodium Chloride Glucose Lactate FiO2 Blood Gas Comments Crit Value Called To Crit Value Called By Crit Value Read Back Blood Gas Notified Time POC Glucose (mg/dL) 96 314 H 270 H Arterial Blood Potassium 02/27/19 19:16 pCO2 43 pO2 235 H HCO3 24.0 ABG pH 7.36 ABG Total CO2 25.6 ABG O2 Saturation 100.3 H ABG Base Excess -1.3 Lupillo Test Yes ABG Potassium 5.2 A-a O2 Difference -4.0 Sodium 135.0 Chloride 108.0 H Glucose 421 H* D Lactate 2.4 H FiO2 40.0 Blood Gas Comments Lac=2.4 Crit Value Called To amalia Hussein Crit Value Called By 22 Crit Value Read Back Y Blood Gas Notified Time 1921 POC Glucose (mg/dL) Arterial Blood Potassium 5.2 Fingerstick Blood Sugar Results: 454
[2019-02-28] MEDS ORDERED: Racepinephrine 2.25% Inhal Soln 0.5 ML UD INH SCH
--- NOTE | 2019-02-28 00:06 | CP.PCM.CON ---
History of Present Illness - History of Present Illness History of Present Illness: Surgery: Dr. Capellan Reason for consult: tracheal stenosis HPI: Patient is a 69 y/o male w/ significant pmhx of ETOH cirrhosis and non resectable HCC who presents to [facility] for shortness of breath. Most history obtained from prior documentation. Patient was admitted in December for hepatic encephalopathy and coma due to nonclearing ammonia levels requiring prolonged intubation. Patient was successfully extubated and d/c'd to rehab since but has had readmissions for pneumonia. Patient was readmitted 02/26 for SOB and difficulty breathing. Per ICU report, bedside scope was done by ENT who reported some tracheal stenosis. Was recommended patient be transferred to a tertiary care center. Thoracic surgery was requested to evaluate patient just prior to transfer. During interview, patient comfortable on 4ltNC. Patient able to have c onversation with some hoarseness in his voice. PMH: HTN, HLD, liver cirrhosis, HCC, hepatic encephalopathy, prolonged intubation, pneumonia PSH: denies Social: no current toxic habits Review of Systems - Review of Systems All systems: reviewed and no additional remarkable complaints except Review of Systems: unless stated in HPI Past Patient History - Infectious Disease Hx of Infectious Diseases: None - Past Medical History & Family History Past Medical History?: Yes - Past Social History Smoking Status: Never Smoked - CARDIAC Hx Hypercholesterolemia: Yes Hx Hypertension: Yes Hx Pacemaker: No - PULMONARY Hx Respiratory Disorders: No Other/Comment: h/o acute respiratory failure, bacterial pneumonia. - NEUROLOGICAL Hx Neurological Disorder: No - HEENT Hx HEENT Problems: Yes Hx Cataracts: Yes - RENAL Hx Chronic Kidney Disease: Yes ( denies hx) - ENDOCRINE/METABOLIC Hx Diabetes Mellitus Type 2: Yes - HEMATOLOGICAL/ONCOLOGICAL Hx Human Immunodeficiency Virus (HIV): No - INTEGUMENTARY Hx Dermatological Problems: No - MUSCULOSKELETAL/RHEUMATOLOGICAL Hx Musculoskeletal Disorders: No Hx Falls: Yes - GASTROINTESTINAL Hx Gastritis: Yes - GENITOURINARY/GYNECOLOGICAL Hx Genitourinary Disorders: Yes Hx Prostate Problems: Yes - PSYCHIATRIC Hx Depression: No Hx Substance Use: No - SURGICAL HISTORY Hx Surgeries: No Hx Mastectomy: No - ANESTHESIA Hx Anesthesia: Yes Hx Anesthesia Reactions: Yes (per "coma") Hx Malignant Hyperthermia: No Meds Allergies/Adverse Reactions: Allergies Allergy/AdvReac Type Severity Reaction Status Date / Time No Known Allergies Allergy Verified 02/01/19 20:20 - Medications Medications: Current Medications Albuterol/Ipratropium (Duoneb 3 Mg/0.5 Mg (3 Ml) Ud) 3 ml INH RQ4 [facility] Last Admin: 02/27/19 23:09 Dose: 3 ml Carvedilol (Coreg) 3.125 mg PO Q12 [facility] Last Admin: 02/27/19 21:34 Dose: Not Given Enoxaparin Sodium (Lovenox) 40 mg SC DAILY [facility]; Protocol Last Admin: 02/27/19 08:42 Dose: 40 mg Folic Acid (Folic Acid) 1 mg PO DAILY [facility] Last Admin: 02/27/19 08:42 Dose: 1 mg Furosemide (Lasix) 20 mg PO DAILY [facility] Last Admin: 02/27/19 08:39 Dose: 20 mg Cefepime HCl 1 gm/ Sodium (Chloride) 100 mls @ 100 mls/hr IVPB Q12 [facility]; Protocol Last Admin: 02/27/19 21:55 Dose: 100 mls/hr Azithromycin 500 mg/ Sodium (Chloride) 250 mls @ 250 mls/hr IVPB DAILY [facility]; Protocol Last Admin: 02/27/19 08:34 Dose: 250 mls/hr Sodium Chloride (Sodium Chloride 0.9%) 1,000 mls @ 60 mls/hr IV .[id number] [facility] Stop: 02/28/19 21:59 Last Admin: 02/27/19 22:00 Dose: 60 mls/hr Insulin Human Regular (Humulin R) 0 units SC ACHS [facility]; Protocol Last Admin: 02/27/19 21:57 Dose: 3 units Lactulose (Enulose) 20 gm PO TID [facility] Last Admin: 02/27/19 16:56 Dose: 20 gm Levothyroxine Sodium (Synthroid) 50 mcg PO DAILY@0630 [facility] Last Admin: 02/27/19 06:03 Dose: 50 mcg Methylprednisolone (Solu-Medrol) 100 mg IV Q8 [facility] Pantoprazole Sodium (Protonix Susp) 40 mg PO DAILY [facility] Last Admin: 02/27/19 08:41 Dose: 40 mg Pantoprazole Sodium (Protonix Inj) 40 mg IVP DAILY [facility] Promethazine HCl/Dextromethorphan (Phenergan Dm Syrup) 10 ml PO Q6 PRN PRN Reason: Cough Last Admin: 02/27/19 08:39 Dose: 10 ml Racepinephrine (Racepinephrine 2.25% Inhl Soln) 0.5 ml INH RQ4 [facility] Last Admin: 02/27/19 23:09 Dose: 0.5 ml Spironolactone (Aldactone) 50 mg PO DAILY [facility] Last Admin: 02/27/19 08:41 Dose: 50 mg Tamsulosin HCl (Flomax) 0.4 mg PO DAILY [facility] Last Admin: 02/27/19 08:42 Dose: 0.4 mg Thiamine HCl (Vitamin B1 Tab) 100 mg PO DAILY [facility] Last Admin: 02/27/19 08:39 Dose: 100 mg Physical Exam - Constitutional Appears: No Acute Distress, Chronically Ill - Head Exam Head Exam: ATRAUMATIC, NORMOCEPHALIC - Eye Exam Eye Exam: EOMI, Normal appearance - ENT Exam ENT Exam: Mucous Membranes Moist - Respiratory Exam Respiratory Exam: Rhonchi, NORMAL BREATHING PATTERN. absent: Decreased Breath Sounds, Respiratory Distress, Stridor - Cardiovascular Exam Cardiovascular Exam: REGULAR RHYTHM. absent: Tachycardia - GI/Abdominal Exam GI & Abdominal Exam: Distended, Soft. absent: Tenderness - Extremities Exam Extremities exam: Positive for: normal inspection. Negative for: calf tenderness - Neurological Exam Neurological exam: Alert, Oriented x3 - Psychiatric Exam Psychiatric exam: Normal Affect, Normal Mood - Skin Skin Exam: Normal Color Results - Vital Signs Recent Vital Signs: Last Vital Signs Temp 98.1 F 02/27/19 15:58 Pulse 81 02/27/19 15:58 Resp 20 02/27/19 15:58 BP 121/61 02/27/19 15:58 Pulse Ox 100 02/27/19 15:58 - Labs Result Diagrams: 02/26/19 16:35 02/26/19 16:35 Labs: Laboratory Results - last 24 hr 02/27/19 02/27/19 02/27/19 05:28 10:41 16:06 pCO2 pO2 HCO3 ABG pH ABG Total CO2 ABG O2 Saturation ABG Base Excess Lupillo Test ABG Potassium A-a O2 Difference Sodium Chloride Glucose Lactate FiO2 Blood Gas Comments Crit Value Called To Crit Value Called By Crit Value Read Back Blood Gas Notified Time POC Glucose (mg/dL) 96 314 H 270 H Arterial Blood Potassium 02/27/19 19:16 pCO2 43 pO2 235 H HCO3 24.0 ABG pH 7.36 ABG Total CO2 25.6 ABG O2 Saturation 100.3 H ABG Base Excess -1.3 Lupillo Test Yes ABG Potassium 5.2 A-a O2 Difference -4.0 Sodium 135.0 Chloride 108.0 H Glucose 421 H* D Lactate 2.4 H FiO2 40.0 Blood Gas Comments Lac=2.4 Crit Value Called To amalia Hussein Crit Value Called By 22 Crit Value Read Back Y Blood Gas Notified Time 1921 POC Glucose (mg/dL) Arterial Blood Potassium 5.2 Assessment & Plan - Assessment and Plan (Free Text) Assessment: 69 y/o male 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 Capellan who agrees with transfer to tertiary center if patient clinically stable for transfer -Tracheal stents not available at this facility -d/w attending and care team AKWhite PGY4
[2019-02-28 04:11] VITALS: TEMP 98.4
[2019-02-28 04:20] VITALS: BP 120/68; PULSE 98; RESP 20
--- NOTE | 2019-02-28 04:20 | OP ---
PROCEDURE DATE: 02/27/2019 REASON FOR CONSULTATION: Possible upper airway obstruction. REQUESTING PHYSICIAN: Kiana Rowe MD HISTORY: This is a 69-year-old male with multiple-day history of shortness of breath and noisy breathing, which is constant, moderate in intensity. The patient, however, was intubated in the hospital and was extubated a month ago, transferred to rehab and after that a sort of began developing this shortness of breath. There is no throat pain. PAST MEDICAL HISTORY: As noted in the chart by me. PROCEDURE: Flexible laryngoscopy. SURGEON: Tao Nathan MD SIGNIFICANT FINDINGS: Tracheal stenosis. DESCRIPTION OF PROCEDURE: The patient was placed in a seated position. The flexible laryngoscope was inserted into the nasal cavity after it was decongested using Afrin. It was passed through nasopharynx, oropharynx, hypopharynx, pharyngeal wall, space of tongue, vallecula, epiglottis, AE folds, false cords, true cords, pyriform sinuses, and arytenoids were brought into view. No masses or lesions were noted. Stenosis was noted in the trachea between the vocal cords as seen in the upper portion of the trachea below the level of the vocal cords. The scope was removed. The patient tolerated the procedure well. The patient has tracheal stenosis, I have recommended a stat cardiothoracic consult in terms of the stenosis in the trachea. I do not treat tracheal stenosis. Therefore, cardiothoracic should be consulted by the way. I spoke to Dr. Rowe, the patient's primary care doctor in the hospital, and informed him of all my findings and my recommendations that a stat cardiothoracic consult should be obtained. Tao Nathan MD
--- NOTE | 2019-02-28 07:56 | CT ---
Date of service: 02/27/2019 PROCEDURE: CT NECK WITHOUT CONTRAST HISTORY: r/o Tracheal Stenosis history of tubulation. COMPARISON: Comparison is made with the previous study dated 02/09/2019. TECHNIQUE: CT of the neck without intravenous contrast. Coronal and sagittal reformats generated. Radiation dose: Total exam DLP = 247.83 mGy-cm. This CT exam was performed using one or more of the following dose reduction techniques: Automated exposure control, adjustment of the mA and/or kV according to patient size, and/or use of iterative reconstruction technique. FINDINGS: NASOPHARYNX: No evidence of acute pathology in this noncontrast study. SUPRAHYOID NECK: Unremarkable oropharynx, oral cavity, parapharyngeal space and retropharyngeal space. INFRAHYOID NECK: Unremarkable larynx, hypopharynx, and supraglottic space. Vocal cords intact. MASS: None. GLANDS: Parotid and submandibular glands unremarkable. The thyroid gland is slightly heterogeneous. Questionable small sub centimeter nodule in the left thyroid lobe. LYMPH NODES: Normal. No lymphadenopathy. CERVICAL SPINE: No fracture or focal lesion. OTHER FINDINGS: There is interval appearance of segmental narrowing of the upper airway just below the level of the thyroid gland measures 1.2 centimeter in the longitudinal diameter. Otherwise the upper airway is patent with normal caliber and shape. No evidence of extraluminal air. There is a left-sided central line in subclavian vein noted. IMPRESSION: Interval appearance of 1.2 centimeter longitudinal length segmental tracheal Ramiro narrowing slightly below the level of thyroid gland No evidence of extraluminal air. Preliminary report was submitted by [facility] contains concordant findings.
--- NOTE | 2019-02-28 08:05 | PN ---
DATE: 02/27/2019 I spoke to the primary care doctor. 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 However, in the meantime, I was able to get him on the [facility] to accept the patient as a transfer. I informed the primary care doctor that if the cardiothoracic surgeon here does not feel comfortable treating this right now that he can be transferred and I have arranged for a transfer; however, the cardiothoracic surgeon should evaluate the patient and see if he wants to treat him here or for a transfer to take place. Secondly, the cardiothoracic surgeon needs to assess the patient to see if the patient is stable enough to be admitted and watched until the transfer happened if he chooses to go the route of the patient. The primary care doctor said that he would speak to the cardiothoracic surgeon on-call and inform him that the patient has tracheal stenosis and that there is an accepting doctor in another hospital and that it is up to him whether to treat the patient here or not and whether to do a tracheostomy or not. Tao Nathan MD
--- NOTE | 2019-02-28 08:12 | CT ---
Date of service: 02/27/2019 PROCEDURE: CT Chest without contrast HISTORY: r/o Tracheal Stenosis COMPARISON: Comparison is made with the previous CT dated 02/07/2019 TECHNIQUE: Contiguous axial images were obtained through the chest without intravenous contrast enhancement. Sagittal and coronal reconstructions were performed. Radiation dose: Total exam DLP = 532.93 mGy-cm. This CT exam was performed using one or more of the following dose reduction techniques: Automated exposure control, adjustment of the mA and/or kV according to patient size, and/or use of iterative reconstruction technique. FINDINGS: LUNGS: There is a 1.2 centimeter segmental narrowing of the upper airway/trachea just below the level of the thyroid gland. There is a airspace consolidation noted again at the left lung lower lobe. MEDIASTINUM: Unremarkable thoracic aorta. No aneurysm. The heart is mildly to moderately enlarged. Main pulmonary artery unremarkable. No vascular congestion. No lymphadenopathy. No aortic atherosclerotic calcification. PLEURA: There is a trace left pleural effusion noted. Trace right pleural effusion versus pleural thickening is also noted. BONES: No fracture. No destructive lesion. UPPER ABDOMEN: Cirrhotic manifestation of the liver are again noted. The patient is status post tips. OTHER FINDINGS: Moderate bilateral gynecomastia likely secondary to cirrhosis. Left-sided PICC line is seen in place IMPRESSION: 1.2 centimeters segmental narrowing of the trachea just below the level of the thyroid gland. Persistent airspace consolidation at the left lung lower lobe associated with mild bronchiectasis. Cardiomegaly. Mild pulmonary vascular congestion. Preliminary report was submitted by [facility] contains concordant findings.
--- NOTE | 2019-02-28 08:24 | CON ---
DATE: 02/27/2019 HISTORY OF PRESENT ILLNESS: Mr. Hadley is a 69-year-old male who was well known to me from prior admission. He was recently admitted to the acute rehab and then to the intensive care unit and then back to acute rehab for gait training and ambulation. He also had pneumonia and respiratory failure. He has a history of chronic alcoholism and has recurrent aspiration pneumonia. He was finally transferred to [facility] for subacute care and then readmitted because of shortness of breath, exercise intolerance, chest congestion, and cough. He still has audible wheeze and rales. PHYSICAL EXAMINATION: On examination, VITAL SIGNS: Remarkable for blood pressure of 127/75, pulse of 78, respiratory rate 20. He is afebrile. O2 sat 100% on room air. SKIN: Shows fair turgor. HEENT: Pupils equal and reactive to light and accommodation. Mouth shows mucous engorgement of pharynx. LUNGS: Audible bilateral rales and wheezing with dullness at both bases. HEART: Regular. ABDOMEN: Soft, nontender. No organomegaly. EXTREMITIES: Shows no edema or cyanosis. CENTRAL NERVOUS SYSTEM: Grossly intact. LABORATORY DATA: Remarkable for WBC of 5.8, hemoglobin of 10.1, platelet count of 79,000. Sodium 134, potassium 5.1, BUN of 21, creatinine 1.1, serum glucose 251. AST 70, ALT 60, alkaline phosphatase 232. Venous blood gas; pH of 7.33, pO2 of 38, pCO2 of 50. O2 saturation is 72.4. Repeat O2 saturation is 99.6. Chest x-ray, no acute cardiopulmonary pathology noted. IMPRESSION: Clinical features compatible with aspiration pneumonia and history of chronic alcoholism. PLAN: To continue IV antibiotics, obtain septic workup, obtain sputum for gram stain and cultures, PT evaluation. We will continue to follow with you. Aerosolized bronchodilators and oxygen . Edwar Mancilla MD
[2019-03-02 01:49] LABS: AChR BLOCKING ANTIBODIES <15 (<15)
== END 2019-02-27 23:30 | disposition short-term general hospital (02) | DRG 179 ==
LOC: H.ER 15:48 → H.ERHOLD 18:56 → H.TEL 22:42 → H.ICU/CCU 02-27 21:10
PROVIDERS: ADMIT Internal Medicine; ATTEND Internal Medicine
PROC: 0CJS8ZZ Inspection of Larynx, Via Natural or Artificial Opening Endoscopic (ICD-10-PCS; principal; 2019-02-27)
DX: J69.0 Pneumonitis due to inhalation of food and vomit (principal); E78.00 Pure hypercholesterolemia, unspecified; K29.70 Gastritis, unspecified, without bleeding; E11.22 Type 2 diabetes mellitus with diabetic chronic kidney disease; I12.9 Hypertensive chronic kidney disease with stage 1 through stage 4 chronic kidney disease, or unspecified chronic kidney disease; N18.9 Chronic kidney disease, unspecified; K72.90 Hepatic failure, unspecified without coma; J39.8 Other specified diseases of upper respiratory tract; D69.6 Thrombocytopenia, unspecified; E78.5 Hyperlipidemia, unspecified; Z79.890 Hormone replacement therapy; Z79.4 Long term (current) use of insulin; R47.02 Dysphasia; K70.30 Alcoholic cirrhosis of liver without ascites